=== PATIENT | male | born 1940 | race Caucasian/White ===

== ENCOUNTER 2016-03-20 20:41 | Inpatient (IN) | payer MEDICARE ==
[2016-03-20] MEDS ORDERED: RX INFO: IV CONTRAST WAS GIVEN 1 EACH MISC MISCELLANE PRN (20:45)
[2016-03-20] MEDS ORDERED: SODIUM CHLORIDE 0.9% 1,000 ML IV STA ×2 (20:56)
[2016-03-20 20:59] LABS: Glucose,Whole Blood 104 mg/dL (75-99)
--- NOTE | 2016-03-20 21:16 | CT ---
EXAMINATION TYPE: CT brain wo con DATE OF EXAM: 03/20/2016 9:01 PM COMPARISON: 11/05/2015 HISTORY: Left sided weakness. History of Prior CVA CT DLP: 1613.6 mGycm Automated exposure control for dose reduction was used. FINDINGS: There is cerebral cortical atrophy. There is no mass effect nor midline shift. There is no sign of in tracranial hemorrhage. There is hypodensity in the medial right parietal lobe convexity consistent wi th old cortical infarct. There is patchy hypodensity in the periventricular white matter. The calvari um is intact. There are unusual tiny air bubbles associated with the sella turcica and parasellar region as well as the soft tissues of the mastication muscles posterior to the maxillary sinuses. The origin and signi ficance of this air is not clear. This is present to very minimal degree on the old CT scan of 016. IMPRESSION: Cerebral atrophy and chronic small vessel ischemia. Old right parietal cortical infarct. This appears stable compared to old exam. Unusual soft tissue air and probable CSF air as described above. Clinical significance of this is not clear. Is there suspicion of a CSF leak?
[2016-03-20 21:17] LABS: Basophils % (A) 1 %; CH 28.9; CHCM 32.8; Eosinophils # (A) 0.2 k/uL (0-0.7); Eosinophils % (A) 4 %; HCT 44.6 % (39.0-53.0); HGB 14.1 gm/dL (13.0-17.5); Luc # (Auto) 0.21; Luc % (Auto) 3; Lymphocytes % (A) 15 %; MCH 28.2 pg (25.0-35.0); MCHC 31.7 g/dL (31.0-37.0); MCV 89.2 fL (80.0-100.0); Mean Platelet Volume 9.3; Monocytes # (A) 0.6 k/uL (0-1.0); Monocytes % (A) 9 %; Neutrophils # (A) 4.3 k/uL (1.3-7.7); Neutrophils % (A) 68 %; RDW 15.3 % (11.5-15.5); WBC 6.3 k/uL (3.8-10.6); WBC (Perox) 6.46
[2016-03-20 21:24] LABS: INR 1.3 (<1.1); Partial Thromboplastin Time 25.4 sec (22.0-30.0); Prothrombin Time 12.5 sec (9.0-12.0)
[2016-03-20 21:28] LABS: ALT 31 U/L (21-72); AST 27 U/L (17-59); Alkaline Phosphatase 67 U/L (38-126); Anion Gap 13 mmol/L; Blood Urea Nitrogen 16 mg/dL (9-20); Carbon Dioxide 24 mmol/L (22-30); Chloride 102 mmol/L (98-107); Glucose 120 mg/dL (74-99); Magnesium 2.1 mg/dL (1.6-2.3); Non-African American GFR(MDRD) >60 (>60 ml/min/1.73 sqM); Phosphorous 3.7 mg/dL (2.5-4.5); Potassium 4.4 mmol/L (3.5-5.1); Sodium 139 mmol/L (137-145); Total Bilirubin 1.1 mg/dL (0.2-1.3); Total Protein 6.8 g/dL (6.3-8.2)
--- NOTE | 2016-03-20 21:30 | CT ---
EXAMINATION TYPE: CT angio head neck DATE OF EXAM: 03/20/2016 9:15 PM COMPARISON: 11/05/2015 HISTORY: Left sided weakness. CT DLP: 1613.6 mGycm Automated exposure control for dose reduction was used. CONTRAST: Performed with IV Contrast, patient injected with 65 mL of Omnipaque 350. There are 3-D post processed images. FINDINGS: There is normal branching pattern of the great vessels on the aortic arch. There is bilateral patency of the common internal and external carotid arteries. There is bilateral patency of the vertebral ar teries. Left vertebral artery is larger than the right. There is lateral atherosclerotic plaque at th e carotid artery bifurcations. There is lumen narrowing of 25 % at the right carotid artery bifurcati on. There is approximate 25% lumen narrowing at the left carotid artery bifurcation. There is arterial flow in the anterior middle and posterior cerebral arteries bilaterally. There is m ild ectasia of the cranial internal carotid arteries. I see no aneurysm. There is patency of the vert ebrobasilar artery system. Basilar artery fills mostly from the left side. There is no evidence of an eurysm or neovascularity. There is no mass effect. IMPRESSION: ATHEROSCLEROTIC VASCULAR DISEASE. NO EVIDENCE OF HEMODYNAMICALLY SIGNIFICANT STENOSIS IN THE CAROTID ARTERIES. THERE IS APPROXIMATE 25% STENOSIS OF THE PROXIMAL INTERNAL CAROTID ARTERIES BILATERALLY. TN LD ECTASIA OF THE INTRACRANIAL INTERNAL CAROTID ARTERIES. NO SIGN OF INTRACRANIAL ANEURYSM. NO ADVERS E CHANGE COMPARED TO OLD EXAM.
[2016-03-20 21:36] LABS: Creatine Kinase 74 U/L (55-170)
--- NOTE | 2016-03-20 21:42 | ED ---
General Adult HPI - General Chief complaint: Neuro Symptoms/Deficit Stated complaint: CVA Time Seen by Provider: 03/20/16 20:45 Source: patient, EMS, RN notes reviewed, old records reviewed Mode of arrival: EMS Limitations: no limitations - History of Present Illness Initial comments: This is a 76-year-old male ER for evaluation. This patient presents here today for reevaluation follow CVA, patient was watching TV with screamed out and then began to be unable to move the left arm, turning head. Patient's family really called EMS. Patient does have history of seizure, has history of A. fib , and [place]. Upon arrival to emergency room, patient still complaining of mild weakness. Although no extremity focal deficit that is new is found. Patient states he has left lower extremity weakness secondary to prior CVA. No nausea vomiting, no headache no fevers no other significant complaints - Related Data Home Medications Medication Instructions Recorded Confirmed Simvastatin [Zocor] 40 mg PO HS 10/23/14 03/20/16 Metoprolol Succinate [Toprol XL] 100 mg PO HS 03/06/15 03/20/16 Cholecalciferol [Vitamin D3] 1,000 unit PO DAILY 11/05/15 03/20/16 Multivitamins, Thera [Multivitamin] 1 tab PO DAILY 11/05/15 03/20/16 amLODIPine BESYLATE/BENAZEPRIL 1 cap PO DAILY 11/05/15 03/20/16 [amLODIPine BESYLATE/BENAZEPRIL 5-20 mg] Aspirin EC [Ecotrin Low Dose] 81 mg PO DAILY 03/20/16 03/20/16 Previous Rx's Medication Instructions Recorded Apixaban [Eliquis] 5 mg PO BID tab 11/09/14 Allergies Allergy/AdvReac Type Severity Reaction Status Date / Time No Known Allergies Allergy Verified 03/20/16 20:57 Review of Systems ROS Statement: Those systems with pertinent positive or pertinent negative responses have been documented in the HPI. ROS Other: All systems not noted in ROS Statement are negative. Past Medical History Past Medical History: Atrial Fibrillation, Heart Failure, CVA/TIA, Hyperlipidemia, Hypertension Additional Past Medical History / Comment(s): prostate cancer 2008, radiation treatment, last stroke was October 2014, [place]. Patient states has a difficult time with octavia inhibitors-makes him cough History of Any Multi-Drug Resistant Organisms: None Reported Additional Past Surgical History / Comment(s): colonoscopy x3, everything was negative, last one December 2014 Past Anesthesia/Blood Transfusion Reactions: No Reported Reaction Past Psychological History: No Psychological Hx Reported Smoking Status: Former smoker Past Alcohol Use History: Occasional Past Drug Use History: None Reported - Past Family History Mother Family Medical History: No Reported History Additional Family Medical History / Comment(s): multiple sclerosis Son(s) Family Medical History: Hypertension Father Additional Family Medical History / Comment(s): ETOH abuse General Exam - General Exam Comments Initial Comments: NIH 2, left lower extremity weakness old Limitations: no limitations General appearance: alert, in no apparent distress Head exam: Present: atraumatic, normocephalic, normal inspection Eye exam: Present: normal appearance, PERRL, EOMI. Absent: scleral icterus, conjunctival injection, periorbital swelling ENT exam: Present: normal exam, mucous membranes moist Neck exam: Present: normal inspection. Absent: tenderness, meningismus, lymphadenopathy Respiratory exam: Present: normal lung sounds bilaterally. Absent: respiratory distress, wheezes, rales, rhonchi, stridor Cardiovascular Exam: Present: regular rate, normal rhythm, normal heart sounds. Absent: systolic murmur, diastolic murmur, rubs, gallop, clicks GI/Abdominal exam: Present: soft, normal bowel sounds. Absent: distended, tenderness, guarding, rebound, rigid Extremities exam: Present: normal inspection, full ROM, normal capillary refill. Absent: tenderness, pedal edema, joint swelling, calf tenderness Back exam: Present: normal inspection Neurological exam: Present: alert, oriented X3, CN II-XII intact Psychiatric exam: Present: normal affect, normal mood Skin exam: Present: warm, dry, intact, normal color. Absent: rash Course Vital Signs 03/20/16 03/20/16 03/20/16 20:57 21:15 21:30 Temperature 97 F L Pulse Rate 101 H 70 68 Respiratory 16 16 14 Rate Blood Pressure 160/94 151/86 175/104 O2 Sat by Pulse 94 L 100 100 Oximetry 03/20/16 03/20/16 21:45 22:00 Temperature Pulse Rate 80 74 Respiratory 16 14 Rate Blood Pressure 158/83 156/83 O2 Sat by Pulse 90 L 96 Oximetry - Reevaluation(s) Reevaluation #1: 01/05/17 22:43 Patient's symptoms at this time I resolved, has no TPA candidate, patient also is on Eliquis EKG Findings - EKG Comments: EKG Findings:: EKG shows A. fib rate of 84, QRS 144, QTc 527 Medical Decision Making - Medical Decision Making 76 year for evaluation of CVA, patient came in [facility] for evaluation of probable CVA , shaking at home with weakness in his right arm and extremity. Patient also has weakness in the left extremity which is chronic. Patient be admitted for continued neurological evaluation. At this time his symptoms are improving to baseline, CT brain and A head and neck are negative for acute disease - Lab Data Result diagrams: 03/20/16 21:03/20/16 21:01 Lab Results 03/20/16 03/20/16 03/20/16 Range/Units 20:58 21:01 21:01 WBC 6.3 (3.8-10.6) k/uL RBC 5.00 (4.30-5.90) m/uL Hgb 14.1 (13.0-17.5) gm/dL Hct 44.6 (39.0-53.0) % MCV 89.2 (80.0-100.0) fL MCH 28.2 (25.0-35.0) pg MCHC 31.7 (31.0-37.0) g/dL RDW 15.3 (11.5-15.5) % Plt Count 151 (150-450) k/uL Neutrophils % 68 % Lymphocytes % 15 % Monocytes % 9 % Eosinophils % 4 % Basophils % 1 % Neutrophils # 4.3 (1.3-7.7) k/uL Lymphocytes # 1.0 (1.0-4.8) k/uL Monocytes # 0.6 (0-1.0) k/uL Eosinophils # 0.2 (0-0.7) k/uL Basophils # 0.0 (0-0.2) k/uL PT (9.0-12.0) sec INR (<1.1) APTT (22.0-30.0) sec Sodium (137-145) mmol/L Potassium (3.5-5.1) mmol/L Chloride (98-107) mmol/L Carbon Dioxide (22-30) mmol/L Anion Gap mmol/L BUN (9-20) mg/dL Creatinine (0.66-1.25) mg/dL Est GFR (MDRD) Af Amer (>60 ml/min/1.73 sqM) Est GFR (MDRD) Non-Af (>60 ml/min/1.73 sqM) Glucose (74-99) mg/dL POC Glucose (mg/dL) 104 H (75-99) mg/dL POC Glu Hr Associate ID Meka Sandy Calcium (8.4-10.2) mg/dL Phosphorus (2.5-4.5) mg/dL Magnesium (1.6-2.3) mg/dL Total Bilirubin (0.2-1.3) mg/dL AST (17-59) U/L ALT (21-72) U/L Alkaline Phosphatase (38-126) U/L Total Creatine Kinase 74 (55-170) U/L CK-MB (CK-2) 1.2 (0.0-2.4) ng/mL CK-MB (CK-2) Rel Index 1.6 Troponin I <0.012 (0.000-0.034) ng/mL Total Protein (6.3-8.2) g/dL Albumin (3.5-5.0) g/dL 03/20/16 03/20/16 Range/Units 21:01 21:01 WBC (3.8-10.6) k/uL RBC (4.30-5.90) m/uL Hgb (13.0-17.5) gm/dL Hct (39.0-53.0) % MCV (80.0-100.0) fL MCH (25.0-35.0) pg MCHC (31.0-37.0) g/dL RDW (11.5-15.5) % Plt Count (150-450) k/uL Neutrophils % % Lymphocytes % % Monocytes % % Eosinophils % % Basophils % % Neutrophils # (1.3-7.7) k/uL Lymphocytes # (1.0-4.8) k/uL Monocytes # (0-1.0) k/uL Eosinophils # (0-0.7) k/uL Basophils # (0-0.2) k/uL PT 12.5 H (9.0-12.0) sec INR 1.3 (<1.1) APTT 25.4 (22.0-30.0) sec Sodium 139 (137-145) mmol/L Potassium 4.4 (3.5-5.1) mmol/L Chloride 102 (98-107) mmol/L Carbon Dioxide 24 (22-30) mmol/L Anion Gap 13 mmol/L BUN 16 (9-20) mg/dL Creatinine 1.12 (0.66-1.25) mg/dL Est GFR (MDRD) Af Amer >60 (>60 ml/min/1.73 sqM) Est GFR (MDRD) Non-Af >60 (>60 ml/min/1.73 sqM) Glucose 120 H (74-99) mg/dL POC Glucose (mg/dL) (75-99) mg/dL POC Glu Hr Associate ID Calcium 9.0 (8.4-10.2) mg/dL Phosphorus 3.7 (2.5-4.5) mg/dL Magnesium 2.1 (1.6-2.3) mg/dL Total Bilirubin 1.1 (0.2-1.3) mg/dL AST 27 (17-59) U/L ALT 31 (21-72) U/L Alkaline Phosphatase 67 (38-126) U/L Total Creatine Kinase (55-170) U/L CK-MB (CK-2) (0.0-2.4) ng/mL CK-MB (CK-2) Rel Index Troponin I (0.000-0.034) ng/mL Total Protein 6.8 (6.3-8.2) g/dL Albumin 4.0 (3.5-5.0) g/dL - Radiology Data Radiology results: report reviewed (CT brain, CTA head and neck negative for acute disease or changes), image reviewed Critical Care Time Critical Care Time: Yes Total Critical Care Time: 31 Disposition Clinical Impression: CVA (cerebral vascular accident), Chronic a-fib Disposition: ADMITTED IP TO THIS [facility] Condition: Fair Referrals: Evan Mary DO [Primary Care Provider] - 1-2 days
[2016-03-20 21:49] LABS: Creatine Kinase MB 1.2 ng/mL (0.0-2.4); Troponin I <0.012 ng/mL (0.000-0.034)
[2016-03-20] MEDS ORDERED: ASPIRIN 325 MG TAB PO STA (22:33)
[2016-03-21 00:22] VITALS: BMI 32.7
[2016-03-21] MEDS: ASPIRIN 325 MG TAB PO SCH (01:18)
[2016-03-21 02:29] LABS: Glucose,Whole Blood 118 mg/dL (75-99)
[2016-03-21] MEDS ORDERED: RX INFO: IV CONTRAST WAS GIVEN 1 EACH MISC MISCELLANE PRN (02:30)
[2016-03-21 03:18] LABS: CH 28.5; CHCM 31.9; HCT 43.4 % (39.0-53.0); HDW 2.86; HGB 13.6 gm/dL (13.0-17.5); Hypochromasia Slight; MCH 28.4 pg (25.0-35.0); MCHC 31.5 g/dL (31.0-37.0); MCV 90.2 fL (80.0-100.0); Mean Platelet Volume 8.4; RBC 4.81 m/uL (4.30-5.90); RDW 15.2 % (11.5-15.5); WBC 5.9 k/uL (3.8-10.6)
[2016-03-21 03:25] LABS: INR 1.2 (<1.1); Partial Thromboplastin Time 26.5 sec (22.0-30.0); Prothrombin Time 12.3 sec (9.0-12.0)
[2016-03-21 03:26] LABS: Anion Gap 14 mmol/L; Blood Urea Nitrogen 15 mg/dL (9-20); Carbon Dioxide 22 mmol/L (22-30); Chloride 105 mmol/L (98-107); Creatine Kinase 83 U/L (55-170); Glucose 131 mg/dL (74-99); Non-African American GFR(MDRD) >60 (>60 ml/min/1.73 sqM); Sodium 141 mmol/L (137-145)
--- NOTE | 2016-03-21 03:45 | CT ---
EXAMINATION TYPE: CT brain wo con DATE OF EXAM: 03/21/2016 3:28 AM COMPARISON: 03/20/2016 HISTORY: follow up, pt still having symptoms seizure like activity, CVA CT DLP: 1085.40 mGycm Automated exposure control for dose reduction was used. FINDINGS: Prominent cortical sulci and ventricles are noted with age-related atrophic changes of brain. Old infarction changes in the right frontal, temporal parietal lobe of brain with encephalomalacia ch anges. No significant midline shift or mass effect is noted. Posterior fossa showed moderate atrophic changes of brain. Brainstem appears grossly intact with mult iple artifacts with possible old infarction changes. No definite acute infarction or hemorrhage is noted in the brain. Previously noted tiny air collections in the and parasellar region and dizziness of mastication muscl es are not well visualized at this time probably related to interval healing changes. Mild mucosal thickening is noted in the ethmoid sinuses with chronic sinusitis changes. IMPRESSION: 1. No acute intracranial hemorrhage, mass effect, or midline shift is seen. 2. There is interval healing of sellar and parasellar tiny air collections as described above. Otherw ise and there is no significant interval change in the brain. 3. Old infarction changes in the right frontal parietal temporal areas of the brain. 4. Sinusitis changes.
--- NOTE | 2016-03-21 09:53 | P.CRDCN ---
History of Present Illness Consult date: 03/21/16 Requesting physician: Brodie Vargas Reason for Consult (text): Possible CVA Chief complaint: Seizure activity History of present illness: This is a 76-year-old gentleman with history of hypertension, chronic persistent atrial fibrillation, hyperlipidemia, prior CVA, who was brought to the hospital via EMS because of questionable seizure-like activity. According to the documentation, the stated that the patient was watching TV, he suddenly yelled out, and then was having what appeared to be a seizure for approximately 1 minute. Upon wakening patient did have some disorientation, with some associated facial droop and slurring of speech. For this reason the patient was brought to the emergency room for further evaluation. On EMS arrival, left hand arm and leg weakness with evidence of left facial droop, patient does have residual left-sided weakness from her prior CVA. Blood pressure on arrival 148/100, heart rate in the 80s, 96% on room air with blood sugar of 132. EKG on arrival to the emergency room showed atrial fibrillation with right bundle branch block pattern. Repeat EKG performed this morning showed atrial fibrillation with right bundle branch block pattern and occasional PVC. CT angiography performed on admission revealed atherosclerotic vascular disease with no evidence of hemodynamically significant stenosis in the carotid arteries. CAT scan of the brain revealed cerebral atrophy and chronic small vessel ischemia. Old right parietal cortical infarct stable as compared to prior exam. Unusual soft tissue and probable CSF air. Repeat CAT scan performed this morning did not reveal any acute intracranial hemorrhage, mass effect, or midline shift. There is interval healing of the sellar and parasellar tiny air collections. Old infarction changes in the right frontoparietal temporal areas of the brain. Blood pressure on arrival 160/90, heart rate 100, 94% on 2 L oxygen. Laboratory data was reviewed, WBC 5.9, potassium 4.4, BUN 15, creatinine 1.0. Troponin is 0.0122. The patient is on anticoagulation in the form of Eliquis 5 mg one tablet by mouth twice a day. Past Medical History Past Medical History: Atrial Fibrillation, Heart Failure, CVA/TIA, Hyperlipidemia, Hypertension Additional Past Medical History / Comment(s): prostate cancer 2008, radiation treatment, last stroke was October 2014, [place]. Patient states has a difficult time with octavia inhibitors-makes him cough History of Any Multi-Drug Resistant Organisms: None Reported Additional Past Surgical History / Comment(s): colonoscopy x3, everything was negative, last one December 2014 Past Anesthesia/Blood Transfusion Reactions: No Reported Reaction Past Psychological History: No Psychological Hx Reported Smoking Status: Former smoker Past Alcohol Use History: Occasional Past Drug Use History: None Reported - Past Family History Sister(s) Family Medical History: Diabetes Mellitus, Myocardial Infarction ([place]) Additional Family Medical History / Comment(s): sister from an [place] Mother Family Medical History: No Reported History Additional Family Medical History / Comment(s): multiple sclerosis Son(s) Family Medical History: Hypertension Father Additional Family Medical History / Comment(s): ETOH abuse Medications and Allergies Home Medications Medication Instructions Recorded Confirmed Type Simvastatin [Zocor] 40 mg PO HS 10/23/14 03/21/16 History Metoprolol Succinate [Toprol XL] 100 mg PO HS 03/06/15 03/21/16 History Cholecalciferol [Vitamin D3] 1,000 unit PO DAILY 11/05/15 03/21/16 History Multivitamins, Thera [Multivitamin] 1 tab PO DAILY 11/05/15 03/21/16 History amLODIPine BESYLATE/BENAZEPRIL 1 cap PO DAILY 11/05/15 03/21/16 History [amLODIPine BESYLATE/BENAZEPRIL 5-20 mg] Aspirin EC [Ecotrin Low Dose] 81 mg PO DAILY 03/20/16 03/21/16 History Allergies Allergy/AdvReac Type Severity Reaction Status Date / Time No Known Allergies Allergy Verified 03/20/16 20:57 Physical Exam Vitals: Vital Signs Temp Pulse Pulse Resp BP BP Pulse Ox 03/21/16 09:00 97.0 F L 97 16 144/87 97 03/21/16 08:00 98.1 F 82 18 132/82 94 L 03/21/16 04:45 81 18 141/78 95 03/21/16 04:15 80 18 127/70 94 L 03/21/16 04:00 74 18 139/91 95 03/21/16 03:45 78 16 141/90 96 03/21/16 03:30 74 16 125/86 94 L 03/21/16 03:15 73 18 137/77 93 L 03/21/16 03:01 82 18 153/75 94 L 03/21/16 02:46 85 16 138/89 94 L 03/21/16 02:31 72 18 167/85 94 L 03/21/16 00:00 97.2 F L 89 16 140/92 92 L 03/20/16 23:25 78 14 155/92 96 Intake and Output 03/20/16 03/21/16 03/21/16 22:59 06:59 14:59 Intake Total 500 Output Total 885 Balance -385 Intake: IV 500 Sodium Chloride 0.9% 1, 500 000 ml @ 100 mls/hr IV . Q10H STA Rx#:[id number] Output: Urine 885 Other: Voiding Method Toilet Toilet Urinal Urinal # Voids 1 Weight 100.5 kg 100.5 kg PHYSICAL EXAMINATION: HEENT: Head is atraumatic, normocephalic. Pupils equal, round. Neck is supple. There is no elevated jugular venous pressure. HEART EXAMINATION: S1 and S2 irregular irregular systolic murmur is heard. CHEST EXAMINATION: Lungs are clear to auscultation and precussion. No chest wall tenderness is noted on palpation or with deep breathing. ABDOMEN: Soft, nontender. Bowel sounds are heard. No organomegaly noted. EXTREMITIES: 2+ peripheral pulses with no evidence of peripheral edema and no calf tenderness noted. NEUROLOGIC patient is awake, alert and oriented -2. Mild slurring his speech, mild left-sided facial droop. . Results 03/21/16 03:04 03/21/16 03:04 Cardiac Enzymes 03/21/16 Range/Units 03:04 Troponin I <0.012 (0.000-0.034) ng/mL Coagulation 03/21/16 Range/Units 03:04 PT 12.3 H (9.0-12.0) sec APTT 26.5 (22.0-30.0) sec CBC 03/21/16 Range/Units 03:04 WBC 5.9 (3.8-10.6) k/uL RBC 4.81 (4.30-5.90) m/uL Hgb 13.6 (13.0-17.5) gm/dL Hct 43.4 (39.0-53.0) % Plt Count 140 L (150-450) k/uL Comprehensive Metabolic Panel 03/21/16 Range/Units 03:04 Sodium 141 (137-145) mmol/L Potassium 4.0 (3.5-5.1) mmol/L Chloride 105 (98-107) mmol/L Carbon Dioxide 22 (22-30) mmol/L BUN 15 (9-20) mg/dL Creatinine 1.00 (0.66-1.25) mg/dL Glucose 131 H (74-99) mg/dL Current Medications Generic Name Dose Route Start Last Admin Trade Name Freq PRN Reason Stop Dose Admin Amlodipine Besylate 5 mg 03/21/16 09:00 Norvasc PO DAILY [facility] Apixaban 5 mg 03/21/16 09:00 Eliquis PO BID [facility] Aspirin 325 mg 03/21/16 22:36 03/21/16 01:18 Aspirin PO Not Given DAILY [facility] Aspirin 81 mg 03/21/16 09:00 Aspirin PO DAILY [facility] Atorvastatin Calcium 20 mg 03/21/16 21:00 Lipitor PO HS [facility] Cholecalciferol 1,000 unit 03/21/16 09:00 Vitamin D3 PO DAILY [facility] Lisinopril 20 mg 03/21/16 09:00 Zestril PO DAILY [facility] Metoprolol Succinate 100 mg 03/21/16 21:00 Toprol Xl PO HS [facility] Miscellaneous Information 1 each 03/20/16 20:45 Rx Info: Iv Contrast Was Given MISCELLANE 03/22/16 20:45 DAILY PRN Per Protocol Miscellaneous Information 1 each 03/21/16 02:30 Rx Info: Iv Contrast Was Given MISCELLANE 03/23/16 02:31 DAILY PRN Per Protocol Multivitamins 1 each 03/21/16 12:00 Theragran PO DAILY@1200 [facility] Intake and Output 03/20/16 03/21/16 03/21/16 22:59 06:59 14:59 Intake Total 500 Output Total 885 Balance -385 Intake: IV 500 Sodium Chloride 0.9% 1, 500 000 ml @ 100 mls/hr IV . Q10H STA Rx#:[id number] Output: Urine 885 Other: Voiding Method Toilet Toilet Urinal Urinal # Voids 1 Weight 100.5 kg 100.5 kg 03/21/16 03:04 03/21/16 03:04 EKG Interpretations (text) EKG shows atrial fibrillation with a right bundle branch block pattern and occasional PVC. Assessment and Plan Plan: Assessment and plan #1 possible seizures #2 history of CVA #3 hypertension #4 chronic persistent atrial fibrillation on Eliquis #5 hyperlipidemia Plan Echocardiogram with Doppler study was performed in October 2015 which revealed an ejection fraction of 50-55%, mild to moderate aortic regurgitation. We will repeat an echocardiogram with Doppler study. Patient does continue to be in atrial fibrillation, rate is under adequate control. Recommend to continue current dose of Eliquis 5 mg one tablet by mouth twice a day. Further recommendations to follow. DNP note has been reviewed, I agree with a documented findings and plan of care. Patient was seen and examined.
[2016-03-21] MEDS: APIXABAN 5 MG TAB PO SCH ×2 (10:05→21:15)
[2016-03-21] MEDS: amLODIPine 5 MG TAB PO SCH (10:05)
[2016-03-21] MEDS: ASPIRIN 81 MG CHEW PO SCH (10:05)
[2016-03-21] MEDS: LISINOPRIL 20 MG TAB PO SCH (10:05)
[2016-03-21] MEDS: CHOLECALCIFEROL 1,000 UNIT TAB PO SCH (10:05)
[2016-03-21] MEDS: MULTIVITAMINS, THERA 1 EACH TAB PO SCH (10:05)
--- NOTE | 2016-03-21 12:54 | ECHOF ---
Referral Reason:afib MEASUREMENTS -------- HEIGHT: 175.3 cm WEIGHT: 100.2 kg BP: 144/87 RVIDd: 3.5 cm (< 3.3) IVSd: 1.5 cm (0.6 - 1.1) LVIDd: 3.4 cm (3.9 - 5.3) LVPWd: 1.6 cm (0.6 - 1.1) IVSs: 1.9 cm LVIDs: 2.5 cm LVPWs: 2.2 cm LA Diam: 5.2 cm (2.7 - 3.8) LAESV Index (A-L): 87.04 ml/m Ao Diam: 3.1 cm (2.0 - 3.7) AV Cusp: 1.2 cm (1.5 - 2.6) MV EXCURSION: 15.618 mm (> 18.000) MV EF SLOPE: 97 mm/s (70 - 150) EPSS: 0.5 cm AV maxP.37 mmHg AV meanP.41 mmHg RAP: 15.00 mmHg RVSP: 39.53 mmHg FINDINGS -------- Atrial fibrillation. This was a technically adequate study. There is moderate concentric left ventricular hypertrophy. Overall left ventricular systolic function is low-normal with, an EF between 50 - 55 %. The right ventricle is mildly enlarged. LA is severely dilated >40 ml/m2 RA appears enlarged. Aortic valve is trileaflet and is mildly thickened. Peak/mean gradient across the Aortic Valve is 16.37mmHg / 8.41mmHg. The mitral valve leaflets are mildly thickened. Mild mitral annular calcification present. [id number] mitral regurgitation is present. Moderate tricuspid regurgitation present. There is mild pulmonary hypertension. The right ventricular systolic pressure, as measured by Doppler, is 39.53mmHg . Pulmonic valve appears structurally normal. The aortic root size is normal. The inferior vena cava is dilated with no significant inspiratory collapse which is consistent estimated right atrial pressure of >15 mmHg. There is no pericardial effusion. CONCLUSIONS -------- 1. Atrial fibrillation. 2. The mitral valve leaflets are mildly thickened. 3. Mild mitral annular calcification present. 4. [id number] mitral regurgitation is present. 5. Moderate tricuspid regurgitation present. 6. There is mild pulmonary hypertension. 7. The right ventricular systolic pressure, as measured by Doppler, is 39.53mmHg . 8. Pulmonic valve appears structurally normal. 9. The aortic root size is normal. 10. The inferior vena cava is dilated with no significant inspiratory collapse which is consistent estimated right atrial pressure of >15 mmHg. 11. There is no pericardial effusion. 12. This was a technically adequate study. 13. There is moderate concentric left ventricular hypertrophy. 14. Overall left ventricular systolic function is low-normal with, an EF between 50 - 55 %. 15. The right ventricle is mildly enlarged. 16. LA is severely dilated >40 ml/m2 17. RA appears enlarged. 18. Aortic valve is trileaflet and is mildly thickened. 19. Peak/mean gradient across the Aortic Valve is 16.37mmHg / 8.41mmHg. EMBEDDED HARDWARE ENGINEER: Taz Newton RDCS
[2016-03-21] MEDS: levETIRAcetam 500 MG TAB PO SCH (13:08)
--- NOTE | 2016-03-21 19:01 | P.HPIM ---
History of Present Illness H&P Date: 03/21/16 Chief Complaint: Seizure activity Patient is a 76 show male, patient of Dr. Evan Mary in the outpatient setting with medical history significant for hypertension, chronic atrial fibrillation, hyperlipidemia, prior CVA in 2014, prostate cancer with radiation treatment, and history of nicotine dependence. Patient presented via EMS to the emergency department with complaints of sudden onset of bilateral upper extremity tremors and inability to speak while tremors were going on per and patient. On EMS arrival, left arm and left weakness was noted with evidence of left facial droop, note that patient has residual left-sided weakness from prior CVA. EKG with evidence of atrial fibrillation with right bundle branch block. CT angiography performed on admission revealed atherosclerotic vascular disease with no evidence of hemodynamically significant stenosis in the carotid arteries. CAT scan of the brain revealed cerebral atrophy and chronic small vessel ischemia. Old right parietal cortical infarct stable as compared to prior exam. Unusual soft tissue and probable CSF air. Repeat CAT scan with no evidence of acute intracranial hemorrhage, mass effect, or midline shift. There is interval healing of the sellar and parasellar tiny air collections. Old infarction changes in the right frontoparietal temporal areas of the brain. Upon examination, patient reports he is feeling better. No further tremors to upper extremities. Patient denies headache, dysphagia, visual disturbances, difficulty hearing, tinnitus, shortness of breath, nausea, vomiting, chest pain, abdominal pain, numbness or tingling. Patient reports weakness to left upper and lower extremity, chronic in nature. Patient reports swelling to bilateral lower extremities 1 month. Patient has been evaluated by cardiology. Neurology consultation pending. Past Medical History Past Medical History: Atrial Fibrillation, Heart Failure, CVA/TIA, Hyperlipidemia, Hypertension Additional Past Medical History / Comment(s): prostate cancer 2008, radiation treatment, last stroke was October 2014, uti. Patient states has a difficult time with octavia inhibitors-makes him cough History of Any Multi-Drug Resistant Organisms: None Reported Additional Past Surgical History / Comment(s): colonoscopy x3, everything was negative, last one December 2014 Past Anesthesia/Blood Transfusion Reactions: No Reported Reaction Past Psychological History: No Psychological Hx Reported Smoking Status: Former smoker Past Alcohol Use History: Occasional Past Drug Use History: None Reported - Past Family History Sister(s) Family Medical History: Diabetes Mellitus, Myocardial Infarction ([place]) Additional Family Medical History / Comment(s): sister from an [place] Mother Family Medical History: No Reported History Additional Family Medical History / Comment(s): multiple sclerosis Son(s) Family Medical History: Hypertension Father Additional Family Medical History / Comment(s): ETOH abuse Medications and Allergies Home Medications Medication Instructions Recorded Confirmed Type Simvastatin [Zocor] 40 mg PO HS 10/23/14 03/21/16 History Metoprolol Succinate [Toprol XL] 100 mg PO HS 03/06/15 03/21/16 History Cholecalciferol [Vitamin D3] 1,000 unit PO DAILY 11/05/15 03/21/16 History Multivitamins, Thera [Multivitamin] 1 tab PO DAILY 11/05/15 03/21/16 History amLODIPine BESYLATE/BENAZEPRIL 1 cap PO DAILY 11/05/15 03/21/16 History [amLODIPine BESYLATE/BENAZEPRIL 5-20 mg] Aspirin EC [Ecotrin Low Dose] 81 mg PO DAILY 03/20/16 03/21/16 History Allergies Allergy/AdvReac Type Severity Reaction Status Date / Time No Known Allergies Allergy Verified 03/20/16 20:57 Physical Exam Vitals: Vital Signs Temp Pulse Pulse Resp BP BP Pulse Ox 03/21/16 16:10 76 18 135/82 98 03/21/16 13:00 80 18 143/93 93 L 03/21/16 11:00 97.0 F L 78 18 143/93 94 L 03/21/16 09:00 97.0 F L 97 16 144/87 97 03/21/16 08:00 98.1 F 82 18 132/82 94 L 03/21/16 04:45 81 18 141/78 95 03/21/16 04:15 80 18 127/70 94 L 03/21/16 04:00 74 18 139/91 95 03/21/16 03:45 78 16 141/90 96 03/21/16 03:30 74 16 125/86 94 L 03/21/16 03:15 73 18 137/77 93 L 03/21/16 03:01 82 18 153/75 94 L 03/21/16 02:46 85 16 138/89 94 L 03/21/16 02:31 72 18 167/85 94 L 03/21/16 00:00 97.2 F L 89 16 140/92 92 L 03/20/16 23:25 78 14 155/92 96 Intake and Output 03/21/16 03/21/16 03/21/16 06:59 14:59 22:59 Intake Total 500 222 Output Total 885 200 Balance -385 -200 222 Intake: IV 500 Sodium Chloride 0.9% 1, 500 000 ml @ 100 mls/hr IV . Q10H STA Rx#:[id number] Oral 222 Output: Urine 885 200 Other: Voiding Method Toilet Toilet Toilet Urinal Urinal Urinal # Voids 1 Weight 100.5 kg GENERAL: Pt awake and alert, well-appearing, well-nourished, and in no acute distress. HEAD: Atraumatic, normocephalic. EYES: Pupils equal, round, and reactive to light, extraocular movements intact, sclera anicteric, conjunctiva are normal. ENT: Oropharynx clear without exudates. Moist mucous membranes. Tongue smooth, pink, no lesions, protrudes in midline. NECK:Supple without lymphadenopathy or JVD. LUNGS: Breath sounds clear to auscultation bilaterally. No wheezes, rales, or rhonchi. HEART: Heart S1, S2, no S3 or S4. Irregularly irregular. Systolic murmur. ABDOMEN: Soft, nontender, nondistended, normoactive bowel sounds. EXTREMITIES: 2+ peripheral pulses. 1+ edema to bilateral lower extremities. No calf tenderness. NEUROLOGICAL: Pt oriented x 3. Weakness noted to left upper and left lower extremity. No slurring of speech. PSYCH: Normal mood, normal affect. SKIN: Warm, dry, intact. Results CBC & Chem 7: 03/21/16 03:04 03/21/16 03:04 Labs: Abnormal Lab Results - Last 24 Hours (Table) 03/21/16 03/21/16 03/21/16 Range/Units 02:28 03:04 03:04 Plt Count 140 L (150-450) k/uL PT 12.3 H (9.0-12.0) sec Glucose (74-99) mg/dL POC Glucose (mg/dL) 118 H (75-99) mg/dL 03/21/16 Range/Units 03:04 Plt Count (150-450) k/uL PT (9.0-12.0) sec Glucose 131 H (74-99) mg/dL POC Glucose (mg/dL) (75-99) mg/dL Thrombosis Risk Factor Assmnt - DVT/VTE Prophylaxis DVT/VTE Prophylaxis: Pharmacologic Prophylaxis ordered, Mechanical Prophylaxis ordered - Choose All That Apply Any of the Below Risk Factors Present?: Yes Each Factor Represents 1 point: Obesity (BMI >25), Swollen legs (current) Other Risk Factors: Yes Each Risk Factor Represents 3 Points: Age 75 years or older Other congenital or acquired thrombophilia - If yes, enter type in comment: Yes Each Risk Factor Represents 5 Points: Stroke (< 1 month) Thrombosis Risk Factor Assessment Total Risk Factor Score: 10 Thrombosis Risk Factor Assessment Level: High Risk Assessment and Plan Plan: Impression and plan: 1. Transient tremors and difficulty speaking just prior to arrival to the emergency department suspect secondary to TIA, CVA, or seizure activity. Neurology consult requested, recommendations pending. Workup imaging with no evidence of acute CVA. EEG pending. 2. History of CVA with left-sided weakness. 3. Hypertension. 4. Chronic persistent atrial fibrillation on Eliquis. Cardiology consult in place, recommendations pending. 5. Hyperlipidemia. 6. History of prostate cancer with radiation treatment. 7. History of nicotine dependence. Continue to monitor patient. Continue current medications. Continue GI and DVT prophylaxis. Continue full neurological workup. Maintain aspiration and seizure precautions. Maintain fall precautions. Continue to follow with consultants. Repeat CBC and BMP in a.m. The above impression and plan have been discussed and directed by Dr. Mary. Farooq WASHINGTON acting as scribe for Dr. Mary.
--- NOTE | 2016-03-21 19:04 | P.CNNES ---
History of Present Illness Consult date: 03/21/16 Reason for Consult: Patient with possible new onset seizure and history of stroke. History of Present Illness: This patient is a 76-year-old right-handed white male who was brought into the emergency room yesterday with symptoms of acute onset of possible seizure. Patient was sitting at home and was watching television when he apparently let out a big scream and went into what appeared to be a seizure event lasting 1-2 minutes in duration. His came running into the room and found him with some seizure-like activity mostly involving his left side. EMS was called to the home and he was transported to the emergency room at [facility] for further evaluation. Patient does have history of previous stroke with some residual neurological deficits. He was doing fairly well until this recent event. Patient was seen in the emergency room by Dr. Painter who ordered a computed tomography scan of the brain as well as a CTA angiogram. CAT scan of the brain failed to reveal any evidence of new stroke. CTA angiogram came back negative for any carotid artery stenosis and no evidence of aneurysm. The patient was subsequently admitted to the hospital for further neurological evaluation. At 3 AM this morning the patient had another event in which he appeared to be seizure-like. According to the nursing staff he had some twitching of the left arm. The left side then became plegic and he was unable to use the left arm and leg. There was concern for possibility of new stroke and he was sent for a stat computed tomography scan of the brain. CAT scan of the brain was reviewed this morning and is negative for evidence of new stroke or hemorrhage. This was unchanged from his previous study. Patient does have a history of underlying atrial fibrillation and has been on Eloquis. He was seen by cardiology this morning and echocardiogram has been ordered. There is no evidence of any bleeding related to his long-term anticoagulation. His clinical history at this time is suggesting new onset seizure likely involving the right hemisphere. This is the area of his previous stroke. We are recommending he undergo a routine EEG and will be started on anticonvulsant therapy today. We will start the patient on Keppra 500 mg twice a day. We will review his EEG which was done today and give further recommendations. The patient does seem to be showing some improvement in his mental status. He no longer shows any evidence of left-sided weakness on examination. We will continue close neurological follow-up for the patient during this admission. Review of Systems Constitutional: Denies chills, Denies fever Eyes: denies blurred vision, denies pain Ears, nose, mouth and throat: Denies headache, Denies sore throat Cardiovascular: Denies chest pain, Denies shortness of breath Respiratory: Denies cough Gastrointestinal: Denies abdominal pain, Denies diarrhea, Denies nausea, Denies vomiting Musculoskeletal: Denies myalgias Integumentary: Denies pruritus, Denies rash Neurological: Denies numbness, Denies weakness Psychiatric: Denies anxiety, Denies depression Endocrine: Denies fatigue, Denies weight change Past Medical History Past Medical History: Atrial Fibrillation, Heart Failure, CVA/TIA, Hyperlipidemia, Hypertension Additional Past Medical History / Comment(s): prostate cancer 2008, radiation treatment, last stroke was October 2014, uti. Patient states has a difficult time with octavia inhibitors-makes him cough History of Any Multi-Drug Resistant Organisms: None Reported Additional Past Surgical History / Comment(s): colonoscopy x3, everything was negative, last one December 2014 Past Anesthesia/Blood Transfusion Reactions: No Reported Reaction Past Psychological History: No Psychological Hx Reported Smoking Status: Former smoker Past Alcohol Use History: Occasional Past Drug Use History: None Reported - Past Family History Sister(s) Family Medical History: Diabetes Mellitus, Myocardial Infarction ([place]) Additional Family Medical History / Comment(s): sister from an [place] Mother Family Medical History: No Reported History Additional Family Medical History / Comment(s): multiple sclerosis Son(s) Family Medical History: Hypertension Father Additional Family Medical History / Comment(s): ETOH abuse Medications and Allergies Home Medications Medication Instructions Recorded Confirmed Type Simvastatin [Zocor] 40 mg PO HS 10/23/14 03/21/16 History Metoprolol Succinate [Toprol XL] 100 mg PO HS 03/06/15 03/21/16 History Cholecalciferol [Vitamin D3] 1,000 unit PO DAILY 11/05/15 03/21/16 History Multivitamins, Thera [Multivitamin] 1 tab PO DAILY 11/05/15 03/21/16 History amLODIPine BESYLATE/BENAZEPRIL 1 cap PO DAILY 11/05/15 03/21/16 History [amLODIPine BESYLATE/BENAZEPRIL 5-20 mg] Aspirin EC [Ecotrin Low Dose] 81 mg PO DAILY 03/20/16 03/21/16 History Allergies Allergy/AdvReac Type Severity Reaction Status Date / Time No Known Allergies Allergy Verified 03/20/16 20:57 Physical Examination - Vital Signs Vital Signs: Vital Signs Temp Pulse Pulse Resp BP BP Pulse Ox 03/21/16 09:00 97.0 F L 97 16 144/87 97 03/21/16 08:00 98.1 F 82 18 132/82 94 L 03/21/16 04:45 81 18 141/78 95 03/21/16 04:15 80 18 127/70 94 L 03/21/16 04:00 74 18 139/91 95 03/21/16 03:45 78 16 141/90 96 03/21/16 03:30 74 16 125/86 94 L 03/21/16 03:15 73 18 137/77 93 L 03/21/16 03:01 82 18 153/75 94 L 03/21/16 02:46 85 16 138/89 94 L 03/21/16 02:31 72 18 167/85 94 L 03/21/16 00:00 97.2 F L 89 16 140/92 92 L 03/20/16 23:25 78 14 155/92 96 Intake and Output 03/20/16 03/21/16 03/21/16 22:59 06:59 14:59 Intake Total 500 Output Total 885 Balance -385 Intake: IV 500 Sodium Chloride 0.9% 1, 500 000 ml @ 100 mls/hr IV . Q10H STA Rx#:[id number] Output: Urine 885 Other: Voiding Method Toilet Toilet Urinal Urinal # Voids 1 Weight 100.5 kg 100.5 kg - Constitutional General appearance: average body habitus, cooperative - EENT EENT: PERRL, mucous membranes moist - Respiratory Respiratory: lungs clear, normal breath sounds - Cardiovascular Cardiovascular: regular rate, normal S1, normal S2 Extremities: no peripheral edema bilaterally - Gastrointestinal Gastrointestinal: normoactive bowel sounds - Integumentary Integumentary: normal - Neurologic Cranial nerve examination: PERRL, EOMI, VFF, V1/V2/V3 grossly intact, tongue midline, intact gag reflex, intact corneal reflex, normal palatal elevation Speech examination: intact Sensorimotor examination: intact Detailed motor examination: grossly full strength in all extremities Detailed sensory examination: intact Reflex and gait examination: intact Reflexes: 1+: ankle, bicep, knee, tricep - Musculoskeletal Musculoskeletal: no pain - Psychiatric Psychiatric: mood/affect appropriate, cooperative Results - Laboratory Findings CBC and BMP: 03/21/16 03:04 03/21/16 03:04 Abnormal Lab Findings: Abnormal Labs 03/21/16 03/21/16 03/21/16 02:28 03:04 03:04 Plt Count 140 L PT 12.3 H Glucose POC Glucose (mg/dL) 118 H 03/21/16 03:04 Plt Count PT Glucose 131 H POC Glucose (mg/dL) Assessment and Plan (1) New onset seizure Status: Acute Code(s): R56.9 - UNSPECIFIED CONVULSIONS (2) Complex partial epilepsy Status: Acute Code(s): G40.209 - LOCAL-REL SYMPTC EPI W CMPLX PRT SEIZ,NOT NTRCT,W/O STAT EPI (3) CVA (cerebral vascular accident) Status: Acute Code(s): I63.9 - CEREBRAL INFARCTION, UNSPECIFIED (4) Atrial fibrillation Status: Acute Code(s): I48.91 - UNSPECIFIED ATRIAL FIBRILLATION Plan: This patient is a 76-year-old male who was admitted hospital after having an initial episode at home of possible new onset seizure. He was at home watching television suddenly let out a large cry and was noted by his is having shaking of his entire body. He did not have any loss of bowel or bladder control. EMS was called and he was brought in to the emergency room for further evaluation. He was evaluated initially for possibility of stroke. His NIH stroke scale was 8.0. He underwent a CTA as well as a CT of the brain both of which came back stable with no findings of acute stroke. He has been on Eloquis for long-term anticoagulation for atrial fibrillation. This was a contraindication for any TPA treatment for the patient. He was totally admitted to the hospital. This morning at 3 AM he had another event in which she had convulsive activity noted by the nursing staff. He was unable to move his left side which is hemiplegic. He was sent for a repeat computed tomography scan of the brain at 3 AM this morning which came back negative for any acute changes. Patient was started on Keppra for seizure prophylaxis. We will check a Keppra level tomorrow morning. He underwent a routine EEG which was reviewed and reveals only mild slowing with no epileptic seizure focus noted. We have discussed all of the findings today with the patient at length. He is doing much better this evening and his speech is clear. He has no evidence of left-sided weakness. We will continue close neurological follow-up for the patient during this admission. His overall prognosis remains guarded. Time with Patient: Greater than 30
[2016-03-21] MEDS: ATORVASTATIN 20 MG TAB PO SCH (21:15)
[2016-03-21] MEDS: METOPROLOL SUCCINATE (ER) 100 MG TAB.ER.24H PO SCH (21:15)
[2016-03-22] MEDS: levETIRAcetam 500 MG TAB PO SCH ×3 (00:05→20:59)
[2016-03-22 06:45] LABS: Basophils % (A) 0 %; CHCM 32.4; Eosinophils # (A) 0.1 k/uL (0-0.7); Eosinophils % (A) 2 %; HCT 43.5 % (39.0-53.0); HDW 3.04; HGB 13.8 gm/dL (13.0-17.5); Hypochromasia Slight; Luc # (Auto) 0.19; Luc % (Auto) 4; Lymphocytes # (A) 0.8 k/uL (1.0-4.8); Lymphocytes % (A) 15 %; MCH 28.8 pg (25.0-35.0); MCHC 31.7 g/dL (31.0-37.0); MCV 90.6 fL (80.0-100.0); Mean Platelet Volume 9.3; Monocytes # (A) 0.4 k/uL (0-1.0); Monocytes % (A) 8 %; Neutrophils # (A) 3.9 k/uL (1.3-7.7); Neutrophils % (A) 71 %; RDW 15.4 % (11.5-15.5); WBC 5.5 k/uL (3.8-10.6); WBC (Perox) 5.84
[2016-03-22 06:57] LABS: Anion Gap 9 mmol/L; Blood Urea Nitrogen 9 mg/dL (9-20); Calcium 8.9 mg/dL (8.4-10.2); Carbon Dioxide 27 mmol/L (22-30); Chloride 107 mmol/L (98-107); Glucose 91 mg/dL (74-99); Non-African American GFR(MDRD) >60 (>60 ml/min/1.73 sqM); Potassium 3.7 mmol/L (3.5-5.1); Sodium 143 mmol/L (137-145)
[2016-03-22] MEDS: MULTIVITAMINS, THERA 1 EACH TAB PO SCH (08:08)
[2016-03-22] MEDS: APIXABAN 5 MG TAB PO SCH ×2 (08:08→20:59)
[2016-03-22] MEDS: amLODIPine 5 MG TAB PO SCH (08:09)
[2016-03-22] MEDS: ASPIRIN 325 MG TAB PO SCH (08:09)
[2016-03-22] MEDS: LISINOPRIL 20 MG TAB PO SCH (08:09)
[2016-03-22] MEDS: ASPIRIN 81 MG CHEW PO SCH (08:09)
[2016-03-22] MEDS: CHOLECALCIFEROL 1,000 UNIT TAB PO SCH (08:10)
--- NOTE | 2016-03-22 08:40 | EEG ---
DATE OF SERVICE: 03/21/[address] Mary. CONSULTING INTERPRETING PHYSICIAN: Dr. Shen Torres INDICATIONS FOR EXAMINATION: This patient is a 76-year-old male evaluated for new onset seizure. AGE: 76Y EEG FINDINGS: A routine 21-channel, awake digital EEG recording was accomplished utilizing the 10 to 20 international system with bipolar and referential montages. The background activity in the most alert resting state consists of a low to medium amplitude, fairly well-developed and well sustained 6 Hz activity over the posterior head regions. This posterior rhythm attenuates to eye opening. There is a small amount of low amplitude 18 to 20 Hz beta activity seen maximally over the anterior head regions. Muscle and movement artifact was observed on a few occasions during the tracing. Hyperventilation was not performed. Photic stimulation at flash frequencies of 2 to 30 Hz produced a minimal occipital driving response. No epileptiform discharges were seen. IMPRESSION: This EEG is moderately abnormal in diffuse fashion due to slowing of the EEG background. The EEG failed to reveal any focal, lateralized or epileptiform abnormalities. Clinical correlation is recommended.
--- NOTE | 2016-03-22 16:40 | P.PN ---
Subjective This patient is a 76-year-old right-handed white male was omitted hospital with new onset seizure. Patient has a history of old stroke which she suffered last year. He was at home and had an episode of tonic-clonic seizure-like activity. It appeared to be focal involving the left side. He was brought into the emergency room where he was further evaluated. He underwent a computed tomography scan of the brain as well as a CTA angiogram. These studies were negative and he was admitted to the hospital. Patient had a episode yesterday at 3 AM in the morning with recurrent seizure-like activity. He was hemiplegic on his left side. This completely resolved following the event. Patient was started on Keppra for long-term anticonvulsant therapy. Keppra level was drawn this morning but is pending from the laboratory. Patient has been doing better today. He has no left-sided weakness. He likely has new onset of seizure activity secondary to previous old stroke. The patient's was at bedside today. She was updated on his overall neurological status. He has had no further seizure episodes since starting on Keppra. We are waiting the Keppra blood level to return from the laboratory and we'll adjust his dose if necessary. Patient is to continue to work with physical therapy. We will anticipate possible discharge to home in the next 24-48 hours. We will continue close neurological follow-up with the patient during this admission. Objective - Vital Signs Vital signs: Vital Signs Temp 97.5 F L 03/22/16 11:04 Pulse 71 03/22/16 11:04 Resp 18 03/22/16 11:04 BP 122/82 03/22/16 11:04 Pulse Ox 93 L 03/22/16 11:04 Intake & Output 03/21/16 03/22/16 03/22/16 18:59 06:59 18:59 Intake Total 222 398 Output Total 200 250 300 Balance 22 -250 98 Weight 101.5 kg Intake: Oral 222 398 Output: Urine 200 250 300 Other: Voiding Method Toilet Toilet Urinal Urinal # Voids 1 - Exam Physical examination: PHYSICAL EXAMINATION: Patient is resting comfortably in bed. VITAL SIGNS: Blood pressure is [122/82]. Heart rate is [71]. Respiration is [18] . Temperature is [97.5]. HEENT: Head is atraumatic, neck is supple, there were no carotid bruits. CHEST: Lungs are clear to auscultation and percussion. CARDIAC: S1, S2 normal rate and rhythm. There is no murmur. ABDOMEN: Soft and nontender. Bowel sounds are present. EXTREMITIES: There is no pedal edema. Peripheral pulses are present. Neurological examination: Neurological examination is unchanged from yesterday. Patient is more awake and alert today and is following all commands. - Labs CBC & Chem 7: 03/22/16 06:15 03/22/16 06:15 Labs: Abnormal Lab Results - Last 24 Hours (Table) 03/22/16 Range/Units 06:15 Plt Count 141 L (150-450) k/uL Lymphocytes # 0.8 L (1.0-4.8) k/uL Assessment and Plan (1) New onset seizure Status: Acute Code(s): R56.9 - UNSPECIFIED CONVULSIONS (2) Complex partial epilepsy Status: Acute Code(s): G40.209 - LOCAL-REL SYMPTC EPI W CMPLX PRT SEIZ,NOT NTRCT,W/O STAT EPI (3) CVA (cerebral vascular accident) Status: Acute Code(s): I63.9 - CEREBRAL INFARCTION, UNSPECIFIED (4) Atrial fibrillation Status: Acute Code(s): I48.91 - UNSPECIFIED ATRIAL FIBRILLATION Plan: This patient is a 76-year-old male who was admitted hospital after having an initial episode at home of possible new onset seizure. He was at home watching television suddenly let out a large cry and was noted by his is having shaking of his entire body. He did not have any loss of bowel or bladder control. EMS was called and he was brought in to the emergency room for further evaluation. He was evaluated initially for possibility of stroke. His NIH stroke scale was 8.0. He underwent a CTA as well as a CT of the brain both of which came back stable with no findings of acute stroke. He has been on Eloquis for long-term anticoagulation for atrial fibrillation. This was a contraindication for any TPA treatment for the patient. He was totally admitted to the hospital. This morning at 3 AM he had another event in which she had convulsive activity noted by the nursing staff. He was unable to move his left side which is hemiplegic. He was sent for a repeat computed tomography scan of the brain at 3 AM this morning which came back negative for any acute changes. Patient was started on Keppra for seizure prophylaxis. We will check a Keppra level tomorrow morning. He underwent a routine EEG which was reviewed and reveals only mild slowing with no epileptic seizure focus noted. We have discussed all of the findings today with the patient at length. He is doing much better this evening and his speech is clear. He has no evidence of left-sided weakness. Patient's was at bedside today. We did update her on his overall neurological status. He is doing much better on Keppra. He has had no further seizure episodes. We're waiting his Keppra blood level to return from the laboratory and it will be adjusted if necessary. We will continue close neurological follow-up for the patient during this admission. His overall prognosis remains guarded.
[2016-03-22] MEDS: METOPROLOL SUCCINATE (ER) 100 MG TAB.ER.24H PO SCH (20:59)
[2016-03-22] MEDS: ATORVASTATIN 20 MG TAB PO SCH (20:59)
[2016-03-23] MEDS: MULTIVITAMINS, THERA 1 EACH TAB PO SCH (08:00)
[2016-03-23] MEDS: ASPIRIN 81 MG CHEW PO SCH (08:00)
[2016-03-23] MEDS: amLODIPine 5 MG TAB PO SCH (08:00)
[2016-03-23] MEDS: APIXABAN 5 MG TAB PO SCH ×2 (08:00→20:07)
[2016-03-23] MEDS: CHOLECALCIFEROL 1,000 UNIT TAB PO SCH (08:00)
[2016-03-23] MEDS: levETIRAcetam 500 MG TAB PO SCH ×2 (08:00→20:07)
[2016-03-23] MEDS: LISINOPRIL 20 MG TAB PO SCH (08:00)
[2016-03-23] MEDS: ASPIRIN 325 MG TAB PO SCH (08:01)
--- NOTE | 2016-03-23 15:50 | P.PN ---
Subjective This patient is a 76-year-old right-handed white male was omitted hospital with new onset seizure. Patient has a history of old stroke which she suffered last year. He was at home and had an episode of tonic-clonic seizure-like activity. It appeared to be focal involving the left side. He was brought into the emergency room where he was further evaluated. He underwent a computed tomography scan of the brain as well as a CTA angiogram. These studies were negative and he was admitted to the hospital. Patient had a episode yesterday at 3 AM in the morning with recurrent seizure-like activity. He was hemiplegic on his left side. This completely resolved following the event. Patient was started on Keppra for long-term anticonvulsant therapy. Keppra level was drawn this morning but is pending from the laboratory. Patient has been doing better today. He has no left-sided weakness. He likely has new onset of seizure activity secondary to previous old stroke. The patient's was at bedside today. She was updated on his overall neurological status. He has had no further seizure episodes since starting on Keppra. We are waiting the Keppra blood level to return from the laboratory and we'll adjust his dose if necessary. Patient is to continue to work with physical therapy. We will anticipate possible discharge to home in the next 24-48 hours. Patient continues to do quite well today. He has not had any further spells or seizure- like events. He denies any focal weakness on examination today. We are still awaiting the laboratory results on his Keppra blood level. If this comes back therapeutic tomorrow he may be ready for discharge home. We will continue close neurological follow-up with the patient during this admission. Objective - Vital Signs Vital signs: Vital Signs Temp 97.9 F 03/23/16 11:36 Pulse 70 03/23/16 11:36 Resp 18 03/23/16 11:36 BP 136/79 03/23/16 11:36 Pulse Ox 93 L 03/23/16 11:36 Intake & Output 03/22/16 03/23/16 03/23/16 18:59 06:59 18:59 Intake Total 578 478 Output Total 300 400 200 Balance 278 -400 278 Weight 97.2 kg Intake: Oral 578 478 Output: Urine 300 400 200 Other: Voiding Method Toilet Urinal # Voids 2 - Exam Physical examination: PHYSICAL EXAMINATION: Patient is resting comfortably in bed. VITAL SIGNS: Blood pressure is [136/79]. Heart rate is [70]. Respiration is [18] . Temperature is [97.9]. HEENT: Head is atraumatic, neck is supple, there were no carotid bruits. CHEST: Lungs are clear to auscultation and percussion. CARDIAC: S1, S2 normal rate and rhythm. There is no murmur. ABDOMEN: Soft and nontender. Bowel sounds are present. EXTREMITIES: There is no pedal edema. Peripheral pulses are present. Neurological examination: Neurological examination is unchanged from yesterday. Patient is more awake and alert today and is following all commands. - Labs CBC & Chem 7: 03/22/16 06:15 03/22/16 06:15 Assessment and Plan (1) New onset seizure Status: Acute Code(s): R56.9 - UNSPECIFIED CONVULSIONS (2) Complex partial epilepsy Status: Acute Code(s): G40.209 - LOCAL-REL SYMPTC EPI W CMPLX PRT SEIZ,NOT NTRCT,W/O STAT EPI (3) CVA (cerebral vascular accident) Status: Acute Code(s): I63.9 - CEREBRAL INFARCTION, UNSPECIFIED (4) Atrial fibrillation Status: Acute Code(s): I48.91 - UNSPECIFIED ATRIAL FIBRILLATION Plan: This patient is a 76-year-old male who was admitted hospital after having an initial episode at home of possible new onset seizure. He was at home watching television suddenly let out a large cry and was noted by his is having shaking of his entire body. He did not have any loss of bowel or bladder control. EMS was called and he was brought in to the emergency room for further evaluation. He was evaluated initially for possibility of stroke. His NIH stroke scale was 8.0. He underwent a CTA as well as a CT of the brain both of which came back stable with no findings of acute stroke. He has been on Eloquis for long-term anticoagulation for atrial fibrillation. This was a contraindication for any TPA treatment for the patient. He was totally admitted to the hospital. This morning at 3 AM he had another event in which she had convulsive activity noted by the nursing staff. He was unable to move his left side which is hemiplegic. He was sent for a repeat computed tomography scan of the brain at 3 AM this morning which came back negative for any acute changes. Patient was started on Keppra for seizure prophylaxis. We will check a Keppra level tomorrow morning. He underwent a routine EEG which was reviewed and reveals only mild slowing with no epileptic seizure focus noted. We have discussed all of the findings today with the patient at length. He is doing much better this evening and his speech is clear. He has no evidence of left-sided weakness. Patient's was at bedside today. We did update her on his overall neurological status. He is doing much better on Keppra. He has had no further seizure episodes. We're waiting his Keppra blood level to return from the laboratory and it will be adjusted if necessary. If his blood levels come back therapeutic tomorrow he may be discharged home. He may follow-up in the outpatient neurology clinic in 3-4 weeks. We will continue close neurological follow-up for the patient during this admission. His overall prognosis remains guarded.
[2016-03-23] MEDS: ATORVASTATIN 20 MG TAB PO SCH (20:07)
[2016-03-23] MEDS: METOPROLOL SUCCINATE (ER) 100 MG TAB.ER.24H PO SCH (20:07)
[2016-03-23 23:08] VITALS: RESP 16
[2016-03-24] MEDS: amLODIPine 5 MG TAB PO SCH (09:04)
[2016-03-24] MEDS: CHOLECALCIFEROL 1,000 UNIT TAB PO SCH (09:04)
[2016-03-24] MEDS: levETIRAcetam 500 MG TAB PO SCH (09:04)
[2016-03-24] MEDS: LISINOPRIL 20 MG TAB PO SCH (09:04)
[2016-03-24] MEDS: APIXABAN 5 MG TAB PO SCH (09:04)
[2016-03-24] MEDS: ASPIRIN 81 MG CHEW PO SCH (09:04)
[2016-03-24 09:46] VITALS: PULSE 89
[2016-03-24 12:10] VITALS: BP 140/95; TEMP 98.1
[2016-03-24] MEDS: MULTIVITAMINS, THERA 1 EACH TAB PO SCH (12:26)
--- NOTE | 2016-03-24 13:35 | P.DS ---
Providers Date of admission: 03/20/16 22:33 Expected date of discharge: 03/24/16 Attending physician: Evan Mary Consults: Cardiology and neurology Primary care physician: Evan Mary [facility] Course: Patient is a 76 show male, patient of Dr. Evan Mary in the outpatient setting with medical history significant for hypertension, chronic atrial fibrillation, hyperlipidemia, prior CVA in 2014, prostate cancer with radiation treatment, and history of nicotine dependence. Patient presented via EMS to the emergency department with complaints of sudden onset of tonic-clonic seizure-like activity appeared to be focal involving the left side. Computed tomography scan of brain as well as CTA of angiogram were negative. Patient did have one episode of recurrent seizure-like activity where he was hemiplegic on his left side which resolved after the episode. Patient was evaluated by neurology service and started on Keppra for long-term anticonvulsant therapy. Patient was also evaluated by cardiology service during his hospital stay with recommendations to continue anticoagulation in the form of Eliquis. Echocardiogram with Doppler with evidence of mild pulmonary hypertension, low to normal ventricular systolic function with an EF between 50-55%. Patient had no further seizure activity during his hospital stay and left-sided hemiparesis resolved. Patient was deemed stable for discharge to home. Keppra will be adjusted based on serum level which is currently pending. Patient to follow-up with neurology and primary service as directed. Discharge diagnoses: 1. New onset seizure suspect secondary to previous CVA. 2. Complex partial epilepsy. 3. History of CVA with left-sided weakness. 3. Hypertension. 4. Chronic atrial fibrillation. 5. Hyperlipidemia. 6. History of prostate cancer with radiation treatment. 7. History of nicotine dependence. 8. Mild pulmonary hypertension. The above impression and plan have been discussed and directed by Dr. Mary. Farooq WASHINGTON acting as scribe for Dr. Mary. Pertinent Studies: Angiographically CT; brain CT; EKG; echocardiogram with Doppler; EEG Patient Condition at Discharge: Good Plan - Discharge Summary New Discharge Prescriptions: levETIRAcetam [Keppra] 500 mg PO Q12HR #60 tab Discharge Medication List Simvastatin [Zocor] 40 mg PO HS 10/23/14 [History] Apixaban [Eliquis] 5 mg PO BID tab 11/09/14 [Rx] Metoprolol Succinate [Toprol XL] 100 mg PO HS 03/06/15 [History] Cholecalciferol [Vitamin D3] 1,000 unit PO DAILY 11/05/15 [History] Multivitamins, Thera [Multivitamin] 1 tab PO DAILY 11/05/15 [History] amLODIPine BESYLATE/BENAZEPRIL [amLODIPine BESYLATE/BENAZEPRIL 5-20 mg] 1 cap PO DAILY 11/05/15 [History] Aspirin EC [Ecotrin Low Dose] 81 mg PO DAILY 03/20/16 [History] levETIRAcetam [Keppra] 500 mg PO Q12HR #60 tab 03/24/16 [Rx] Follow up Appointment(s)/Referral(s): Mazin Nolasco MD [STAFF PHYSICIAN] - 1 Week ([phone]) Shen Torres MD [STAFF PHYSICIAN] - 04/24/16 9:30 am Evan Mary DO [Primary Care Provider] - 03/26/16 11:40 am Patient Instructions/Handouts: New-Onset Seizure in Adults (DC) Discharge Disposition: HOME SELF-CARE Pending Studies Pending Results: Vickie burkett
--- NOTE | 2016-03-24 16:00 | P.PN ---
Subjective This patient is a 76-year-old right-handed white male was omitted hospital with new onset seizure. Patient has a history of old stroke which she suffered last year. He was at home and had an episode of tonic-clonic seizure-like activity. It appeared to be focal involving the left side. He was brought into the emergency room where he was further evaluated. He underwent a computed tomography scan of the brain as well as a CTA angiogram. These studies were negative and he was admitted to the hospital. Patient had a episode yesterday at 3 AM in the morning with recurrent seizure-like activity. He was hemiplegic on his left side. This completely resolved following the event. Patient was started on Keppra for long-term anticonvulsant therapy. Keppra level was drawn this morning but is pending from the laboratory. Patient has been doing better today. He has no left-sided weakness. He likely has new onset of seizure activity secondary to previous old stroke. The patient's was at bedside today. She was updated on his overall neurological status. He has had no further seizure episodes since starting on Keppra. We are waiting the Keppra blood level to return from the laboratory and we'll adjust his dose if necessary. Patient is to continue to work with physical therapy. We will anticipate possible discharge to home in the next 24-48 hours. Patient continues to do quite well today. He has not had any further spells or seizure- like events. He denies any focal weakness on examination today. We are still awaiting the laboratory results on his Keppra blood level. If this comes back therapeutic tomorrow he may be ready for discharge home. Patient's Keppra level was reviewed today and is therapeutic at 13.7. He is to continue on his current dose of Keppra 500 mg twice a day. He will be discharged home today and may follow-up in the outpatient neurology clinic in 3 weeks. We will continue close neurological follow-up with the patient during this admission. Objective - Vital Signs Vital signs: Vital Signs Temp 98.1 F 03/24/16 12:00 Pulse 89 03/24/16 12:00 Resp 16 03/24/16 12:00 BP 140/95 03/24/16 12:00 Pulse Ox 94 L 03/24/16 12:00 Intake & Output 03/23/16 03/24/16 03/24/16 18:59 06:59 18:59 Intake Total 658 914 Output Total 200 1020 Balance 458 -1020 914 Weight 95.1 kg Intake: Oral 658 914 Output: Urine 200 1020 Other: Voiding Method Toilet Toilet Urinal Urinal Diaper Diaper # Voids 1 1 - Exam Physical examination: PHYSICAL EXAMINATION: Patient is resting comfortably in bed. VITAL SIGNS: Blood pressure is [140/95]. Heart rate is [73]. Respiration is [16] . Temperature is [98.1]. HEENT: Head is atraumatic, neck is supple, there were no carotid bruits. CHEST: Lungs are clear to auscultation and percussion. CARDIAC: S1, S2 normal rate and rhythm. There is no murmur. ABDOMEN: Soft and nontender. Bowel sounds are present. EXTREMITIES: There is no pedal edema. Peripheral pulses are present. Neurological examination: Neurological examination is unchanged from yesterday. Patient is more awake and alert today and is following all commands. - Labs CBC & Chem 7: 03/22/16 06:15 03/22/16 06:15 Assessment and Plan (1) New onset seizure Status: Acute Code(s): R56.9 - UNSPECIFIED CONVULSIONS (2) Complex partial epilepsy Status: Acute Code(s): G40.209 - LOCAL-REL SYMPTC EPI W CMPLX PRT SEIZ,NOT NTRCT,W/O STAT EPI (3) CVA (cerebral vascular accident) Status: Acute Code(s): I63.9 - CEREBRAL INFARCTION, UNSPECIFIED (4) Atrial fibrillation Status: Acute Code(s): I48.91 - UNSPECIFIED ATRIAL FIBRILLATION Plan: This patient is a 76-year-old male who was admitted hospital after having an initial episode at home of possible new onset seizure. He was at home watching television suddenly let out a large cry and was noted by his is having shaking of his entire body. He did not have any loss of bowel or bladder control. EMS was called and he was brought in to the emergency room for further evaluation. He was evaluated initially for possibility of stroke. His NIH stroke scale was 8.0. He underwent a CTA as well as a CT of the brain both of which came back stable with no findings of acute stroke. He has been on Eloquis for long-term anticoagulation for atrial fibrillation. This was a contraindication for any TPA treatment for the patient. He was totally admitted to the hospital. This morning at 3 AM he had another event in which she had convulsive activity noted by the nursing staff. He was unable to move his left side which is hemiplegic. He was sent for a repeat computed tomography scan of the brain at 3 AM this morning which came back negative for any acute changes. Patient was started on Keppra for seizure prophylaxis. We will check a Keppra level tomorrow morning. He underwent a routine EEG which was reviewed and reveals only mild slowing with no epileptic seizure focus noted. We have discussed all of the findings today with the patient at length. He is doing much better this evening and his speech is clear. He has no evidence of left-sided weakness. Patient's was at bedside today. We did update her on his overall neurological status. He is doing much better on Keppra. He has had no further seizure episodes. We're waiting his Keppra blood level to return from the laboratory and it will be adjusted if necessary. If his blood levels come back therapeutic tomorrow he may be discharged home. The patient's Keppra level came back therapeutic today at 13.7. He is to continue on his current dose of Keppra 500 mg twice a day. He is stable for discharge home today and may follow-up in the outpatient neurology clinic as instructed. He may follow-up in the outpatient neurology clinic in 3-4 weeks. We will continue close neurological follow-up for the patient during this admission. His overall prognosis remains guarded.
--- NOTE | 2016-03-24 17:25 | PN ---
DATE OF SERVICE: 03/22/2016 Mr. Martin is a pleasant 76-year-old white male who initially was admitted to the hospital with new onset of stroke versus seizure. The patient had known stroke a few years prior and he states he became very tremulous with left-sided weakness and arm flailing. He is currently doing well in the hospital today without any particular complaints. PHYSICAL EXAM: His head is normocephalic and atraumatic. NECK: Supple without JVD. LUNGS: Clear to auscultation. HEART: Irregular irregularity. ABDOMEN: Soft, nontender. No rebound, rigidity, guarding. EXTREMITIES: No cyanosis, clubbing or jaundice. NEUROLOGICAL: Patient is answering questions, is appropriate and oriented x3, he has left hemiparesis secondary to old stroke. His speech is adequate. Skin is warm and dry to palpation. PSYCHOLOGICAL: He is answering questions appropriately. IMPRESSION: 1. New onset of seizures. 2. Recent history cerebrovascular accident x2. 3. Atrial fibrillation. 4. Atherosclerotic cardiovascular disease. PLAN: Patient was placed on Keppra and pending on Keppra level. We will keep monitoring for seizure activity and TIA activity. He is also on anticoagulation in the form of aspirin and Eliquis. ( ) blood pressure control. We will continue to follow the patient's overall guarded prognosis.
--- NOTE | 2016-03-24 17:29 | PN ---
DATE OF SERVICE: 03/23/2016 This is a pleasant 76-year-old white male who was admitted for new onset seizure disorder. He was placed on Keppra by neurology. He underwent a CT of the brain and CT angiogram and showed old infarcts compatible with his previous infarct with left hemiparesis. He is doing quite well without any problems at this time. He is still currently awaiting a Keppra blood level to come back. PHYSICAL EXAM: He is alert and is answering questions appropriately. He is comfortable in bed. HEENT: Head is normocephalic and atraumatic. NECK: Supple. No JVD. HEART: Irregular irregularity. ABDOMEN: Soft, nontender. EXTREMITIES: No cyanosis, clubbing or jaundice. Left upper extremity with some weakness which is old from prior CVA. IMPRESSION: 1. Acute new-onset seizures. 2. Chronic cerebrovascular accident with left hemiparesis. 3. Chronic atrial fibrillation with controlled ventricular rate and current anticoagulation. PLAN: Continue Eliquis. We will continue Keppra for seizure activity. We will continue to monitor. Patient's not ready to go home today. He may be ready to go home in 24 to 36 hours. Continue to follow patient's progress and neurological function.
== END 2016-03-24 14:45 | disposition home or self-care (01) | DRG 57 ==
LOC: EC 20:41 → 6SEL 22:33
PROVIDERS: ADMIT Family Medicine; ATTEND Family Medicine
DX: I69.398 Other sequelae of cerebral infarction (principal); G40.209 Localization-related (focal) (partial) symptomatic epilepsy and epileptic syndromes with complex partial seizures, not intractable, without status epilepticus; I48.1 Persistent atrial fibrillation; I27.2 Other secondary pulmonary hypertension; I11.9 Hypertensive heart disease without heart failure; I69.354 Hemiplegia and hemiparesis following cerebral infarction affecting left non-dominant side; I48.2 Chronic atrial fibrillation; I50.9 Heart failure, unspecified; E78.5 Hyperlipidemia, unspecified; I25.10 Atherosclerotic heart disease of native coronary artery without angina pectoris; I45.10 Unspecified right bundle-branch block; Z79.01 Long term (current) use of anticoagulants; Z82.0 Family history of epilepsy and other diseases of the nervous system; Z82.49 Family history of ischemic heart disease and other diseases of the circulatory system; Z85.46 Personal history of malignant neoplasm of prostate; Z87.891 Personal history of nicotine dependence; Z79.899 Other long term (current) drug therapy
CPT/HCPCS: 36415; 70450; 70496; 70498; 80048; 80051; 80053; 80177; 82550; 82553; 82565; 82947; 83735; 84100; 84484; 84520; 85025; 85027; 85610; 85730; 93005; 93306; 95819; 99291

== ENCOUNTER → 2016-04-26 | Outpatient (CLI) | payer MEDICARE | END | disposition home or self-care (01) | LOC: LABWHC1 10:32 | PROVIDERS: ATTEND Psychiatry & Neurology Neurology | DX: G40.209 Localization-related (focal) (partial) symptomatic epilepsy and epileptic syndromes with complex partial seizures, not intractable, without status epilepticus (principal) | CPT/HCPCS: 36415; 80177 ==

== ENCOUNTER 2016-09-01 01:56 | Emergency (ER) | payer MEDICARE ==
[2016-09-01 02:04] VITALS: RESP 18
[2016-09-01 03:26] LABS: Basophils % (A) 1 %; CH 29.2; CHCM 32.6; Eosinophils # (A) 0.2 k/uL (0-0.7); Eosinophils % (A) 3 %; HCT 45.2 % (39.0-53.0); HDW 2.59; HGB 14.4 gm/dL (13.0-17.5); Luc # (Auto) 0.19; Luc % (Auto) 3; Lymphocytes # (A) 0.8 k/uL (1.0-4.8); Lymphocytes % (A) 13 %; MCH 28.8 pg (25.0-35.0); MCHC 31.9 g/dL (31.0-37.0); MCV 90.1 fL (80.0-100.0); Mean Platelet Volume 8.7; Monocytes # (A) 0.4 k/uL (0-1.0); Monocytes % (A) 6 %; Neutrophils # (A) 4.5 k/uL (1.3-7.7); Neutrophils % (A) 74 %; RBC 5.02 m/uL (4.30-5.90); RDW 14.5 % (11.5-15.5); WBC 6.1 k/uL (3.8-10.6); WBC (Perox) 6.18
[2016-09-01 03:32] LABS: ALT 29 U/L (21-72); AST 24 U/L (17-59); Alcohol <10 mg/dL; Alkaline Phosphatase 46 U/L (38-126); Anion Gap 6 mmol/L; Blood Urea Nitrogen 14 mg/dL (9-20); Carbon Dioxide 19 mmol/L (22-30); Chloride 118 mmol/L (98-107); Glucose 89 mg/dL (74-99); Non-African American GFR(MDRD) >60 (>60 ml/min/1.73 sqM); Sodium 143 mmol/L (137-145); Total Bilirubin 0.8 mg/dL (0.2-1.3); Total Protein 4.7 g/dL (6.3-8.2)
[2016-09-01 03:41] LABS: Calcium 6.4 mg/dL (8.4-10.2)
[2016-09-01 03:43] LABS: Appearance,Urine Clear (Clear); Bilirubin,Urine Negative (Negative); Glucose,Urine (UA) Negative (Negative); Ketones,Urine Negative (Negative); Leukocyte Esterase,Urine Negative (Negative); Mucus,Urine Rare /hpf; Nitrite,Urine Negative (Negative); Particle Count 1659; Protein,Urine 1+ (Negative); RBC,Urine 8 /hpf (0-5); Specific Gravity,Urine 1.016 (1.001-1.035); Sperm,Urine Rare /hpf; UA Billing (MACRO vs. MICRO) MICRO; WBC,Urine 4 /hpf (0-5)
[2016-09-01] MEDS ORDERED: CALCIUM GLUCONATE 1,000 MG in SODIUM CHLORIDE 0.9% 100 ML IVPB ONE (04:00)
[2016-09-01] MEDS ORDERED: POTASSIUM BICARB-CITRIC ACID 25 MEQ TABLET.EFF PO STA (04:00)
--- NOTE | 2016-09-01 04:02 | ED ---
Seizure HPI - General Chief Complaint: Seizure Stated Complaint: Possible seizure Time Seen by Provider: 09/01/16 02:00 Source: patient Mode of arrival: EMS - History of Present Illness Initial Comments: This patient is a 76-year-old man who has reported history of partial seizures. He reportedly takes Keppra and he denies missing any doses. The patient is reported to have had tonic-clonic movements which he states are consistent with his history of seizures. When I interview the patient, he is stating his back his baseline and he is not having any injury related to seizure. He is denying complaints. MD Complaint: seizure Onset/Timin -: hour(s) Description of Episode: tonic-clonic movement -: second(s) Witnessed: yes - by bystander Seizure History: known seizure disorder, compliant with medication Place: home Possible Precipitating Event: none Associated Symptoms: denies other symptoms - Related Data Home Medications Medication Instructions Recorded Confirmed Simvastatin [Zocor] 40 mg PO HS 10/23/14 09/01/16 Metoprolol Succinate [Toprol XL] 100 mg PO HS 03/06/15 09/01/16 Cholecalciferol [Vitamin D3] 1,000 unit PO DAILY 11/05/15 09/01/16 Multivitamins, Thera [Multivitamin 1 tab PO DAILY 11/05/15 09/01/16 (formulary)] amLODIPine BESYLATE/BENAZEPRIL 1 cap PO DAILY 11/05/15 09/01/16 [amLODIPine BESYLATE/BENAZEPRIL 5-20 mg] Aspirin EC [Ecotrin Low Dose] 81 mg PO DAILY 03/20/16 09/01/16 Previous Rx's Medication Instructions Recorded Apixaban [Eliquis] 5 mg PO BID tab 11/09/14 levETIRAcetam [Keppra] 500 mg PO Q12HR #60 tab 03/24/16 Allergies Allergy/AdvReac Type Severity Reaction Status Date / Time No Known Allergies Allergy Verified 09/01/16 02:08 Review of Systems ROS Statement: Those systems with pertinent positive or pertinent negative responses have been documented in the HPI. ROS Other: All systems not noted in ROS Statement are negative. Constitutional: Denies: fever Eyes: Denies: vision change Respiratory: Denies: cough, dyspnea Cardiovascular: Denies: chest pain, palpitations Gastrointestinal: Denies: abdominal pain, vomiting Genitourinary: Denies: dysuria Musculoskeletal: Denies: back pain Skin: Denies: rash Neurological: Denies: headache, weakness, numbness Past Medical History Past Medical History: Atrial Fibrillation, Heart Failure, CVA/TIA, Hyperlipidemia, Hypertension Additional Past Medical History / Comment(s): prostate cancer 2009, radiation treatment, last stroke was October 2014, uti. Patient states has a difficult time with octavia inhibitors-makes him cough History of Any Multi-Drug Resistant Organisms: None Reported Additional Past Surgical History / Comment(s): colonoscopy x3, everything was negative, last one December 2014 Past Anesthesia/Blood Transfusion Reactions: No Reported Reaction Past Psychological History: No Psychological Hx Reported Smoking Status: Former smoker Past Alcohol Use History: Occasional Past Drug Use History: None Reported - Past Family History Sister(s) Family Medical History: Diabetes Mellitus, Myocardial Infarction ([place]) Additional Family Medical History / Comment(s): sister from an [place] Mother Family Medical History: No Reported History Additional Family Medical History / Comment(s): multiple sclerosis Son(s) Family Medical History: Hypertension Father Additional Family Medical History / Comment(s): ETOH abuse General Exam General appearance: alert, in no apparent distress Head exam: Present: atraumatic, normocephalic, normal inspection Eye exam: Present: normal appearance. Absent: scleral icterus, conjunctival injection ENT exam: Present: normal oropharynx Neck exam: Present: normal inspection, full ROM Respiratory exam: Present: normal lung sounds bilaterally. Absent: respiratory distress, wheezes, rales, rhonchi, stridor Cardiovascular Exam: Present: regular rate, normal rhythm, normal heart sounds. Absent: systolic murmur, diastolic murmur, rubs, gallop GI/Abdominal exam: Present: soft. Absent: tenderness, guarding, rebound Extremities exam: Present: normal inspection, normal capillary refill. Absent: pedal edema, calf tenderness Back exam: Absent: CVA tenderness (R), CVA tenderness (L), vertebral tenderness Neurological exam: Present: alert, oriented X3, CN II-XII intact. Absent: motor sensory deficit Skin exam: Present: warm, dry, intact, normal color. Absent: rash Course Vital Signs 09/01/16 09/01/16 09/01/16 01:59 02:32 03:21 Temperature 96.6 F L Pulse Rate 78 73 71 Respiratory 18 18 18 Rate Blood Pressure 145/87 118/79 132/82 O2 Sat by Pulse 92 L 96 98 Oximetry 09/01/16 09/01/16 09/01/16 04:38 05:24 06:26 Temperature 97.8 F Pulse Rate 69 75 79 Respiratory 18 18 18 Rate Blood Pressure 135/76 129/89 150/84 O2 Sat by Pulse 98 98 98 Oximetry Medical Decision Making - Medical Decision Making Patient is a 76-year-old man with known history of seizures, taking Keppra. Workup reveals some electrolyte abnormalities and these were supplemented. On reevaluation, patient is feeling well and would like to go home. As she is at his baseline this seems acceptable, will have the patient follow-up with his neurologist to discuss his Keppra dosing. Discussed return parameters. - Lab Data Result diagrams: 09/01/16 03:05 09/01/16 03:05 Lab Results 09/01/16 09/01/16 09/01/16 Range/Units 03:05 03:05 03:05 WBC 6.1 (3.8-10.6) k/uL RBC 5.02 (4.30-5.90) m/uL Hgb 14.4 (13.0-17.5) gm/dL Hct 45.2 (39.0-53.0) % MCV 90.1 (80.0-100.0) fL MCH 28.8 (25.0-35.0) pg MCHC 31.9 (31.0-37.0) g/dL RDW 14.5 (11.5-15.5) % Plt Count 143 L (150-450) k/uL Neutrophils % 74 % Lymphocytes % 13 % Monocytes % 6 % Eosinophils % 3 % Basophils % 1 % Neutrophils # 4.5 (1.3-7.7) k/uL Lymphocytes # 0.8 L (1.0-4.8) k/uL Monocytes # 0.4 (0-1.0) k/uL Eosinophils # 0.2 (0-0.7) k/uL Basophils # 0.0 (0-0.2) k/uL Sodium 143 (137-145) mmol/L Potassium 3.0 L* (3.5-5.1) mmol/L Chloride 118 H (98-107) mmol/L Carbon Dioxide 19 L (22-30) mmol/L Anion Gap 6 mmol/L BUN 14 (9-20) mg/dL Creatinine 0.70 (0.66-1.25) mg/dL Est GFR (MDRD) Af Amer >60 (>60 ml/min/1.73 sqM) Est GFR (MDRD) Non-Af >60 (>60 ml/min/1.73 sqM) Glucose 89 (74-99) mg/dL Calcium 6.4 L* (8.4-10.2) mg/dL Total Bilirubin 0.8 (0.2-1.3) mg/dL AST 24 (17-59) U/L ALT 29 (21-72) U/L Alkaline Phosphatase 46 (38-126) U/L Total Protein 4.7 L (6.3-8.2) g/dL Albumin 2.4 L (3.5-5.0) g/dL Urine Color Yellow Urine Appearance Clear (Clear) Urine pH 6.0 (5.0-8.0) Ur Specific [place] 1.016 (1.001-1.035) Urine Protein 1+ H (Negative) Urine Glucose (UA) Negative (Negative) Urine Ketones Negative (Negative) Urine Blood Small H (Negative) Urine Nitrite Negative (Negative) Urine Bilirubin Negative (Negative) Urine Urobilinogen 2.0 (<2.0) mg/dL Ur Leukocyte Esterase Negative (Negative) Urine RBC 8 H (0-5) /hpf Urine WBC 4 (0-5) /hpf Urine Mucus Rare H (None) /hpf Urine Sperm Rare (None) /hpf Serum Alcohol <10 mg/dL Disposition Clinical Impression: Generalized seizure Disposition: HOME SELF-CARE Condition: Fair Instructions: Recurrent Seizures in Adults (ED) Referrals: Evan Mary DO [Primary Care Provider] - 1-2 days Shen Torres MD [STAFF PHYSICIAN] - 1-2 days
[2016-09-01 06:27] VITALS: BP 150/84; PULSE 79; TEMP 97.8
== END 2016-09-01 06:12 | disposition home or self-care (01) ==
LOC: EC 01:56
DX: G40.409 Other generalized epilepsy and epileptic syndromes, not intractable, without status epilepticus (principal); E78.5 Hyperlipidemia, unspecified; I10 Essential (primary) hypertension; Z85.46 Personal history of malignant neoplasm of prostate; Z87.891 Personal history of nicotine dependence; Z79.82 Long term (current) use of aspirin; Z79.899 Other long term (current) drug therapy
CPT/HCPCS: 99284; 96365; 36415; 93005; 80053; 80177; 85025; 81001; 80320; J0610

== ENCOUNTER → 2016-09-02 | Outpatient (CLI) | payer MEDICARE | END | disposition home or self-care (01) | LOC: LABWHC1 10:27 | PROVIDERS: ATTEND Psychiatry & Neurology Neurology | DX: G40.209 Localization-related (focal) (partial) symptomatic epilepsy and epileptic syndromes with complex partial seizures, not intractable, without status epilepticus (principal) | CPT/HCPCS: 36415; 80177 ==

== ENCOUNTER → 2017-09-10 | Outpatient (CLI) | payer MEDICARE | END | disposition home or self-care (01) | LOC: LABWHC1 10:07 | PROVIDERS: ATTEND Psychiatry & Neurology Neurology | DX: G40.209 Localization-related (focal) (partial) symptomatic epilepsy and epileptic syndromes with complex partial seizures, not intractable, without status epilepticus (principal) | CPT/HCPCS: 36415; 80177 ==

== ENCOUNTER → 2019-01-11 | Outpatient (CLI) | payer MEDICARE | END | disposition home or self-care (01) | LOC: LABWHC1 11:11 | PROVIDERS: ATTEND Psychiatry & Neurology Neurology | DX: G40.209 Localization-related (focal) (partial) symptomatic epilepsy and epileptic syndromes with complex partial seizures, not intractable, without status epilepticus (principal) | CPT/HCPCS: 36415; 80177 ==

== ENCOUNTER 2019-03-01 17:51 | Inpatient (IN) | payer MEDICARE ==
[2019-03-01 17:59] LABS: Glucose,Whole Blood 174 mg/dL (75-99)
[2019-03-01] MEDS ORDERED: NALOXONE 0.4 MG/ML 1 ML VIAL IV STA ×2 (17:59→18:32)
[2019-03-01] MEDS ORDERED: ETOMIDATE 2 MG/ML 10 ML VIAL IVP STA (18:09)
[2019-03-01] MEDS ORDERED: ROCURONIUM BROMIDE 10 MG/ML 5 ML VIAL IV STA (18:11)
[2019-03-01] MEDS ORDERED: SODIUM CHLORIDE 0.9% 1,000 ML IV ONE (18:18)
--- NOTE | 2019-03-01 18:23 | ED ---
General Adult HPI - General Chief complaint: Recheck/Abnormal Lab/Rx Stated complaint: edema Time Seen by Provider: 03/01/19 18:18 Source: family Mode of arrival: wheelchair Limitations: altered mental status - History of Present Illness Initial comments: Dictation was produced using [employer] dictation software. please excuse any grammatical, word or spelling errors. Chief Complaint: 79-year-old male brought in from home through triage for weakness apnea, and altered mental status. History of Present Illness: 79-year-old male is brought in by from home. Patient has been having increased fluid retention over the last 3 days. He is instructed by the physician to increase his water pills. Unable to provide history at this time. Andrew patient is unable course for irregular heartbeat. His past medical history of A. fib, heart failure, dyslipidemia and hypertension. Patient also according to chart review has history of seizures. The ROS documented in this emergency department record has been reviewed and confirmed by me. Those systems with pertinent positive or negative responses have been documented in the HPI. All other systems are other negative and/or noncontributory. PHYSICAL EXAM: General Impression: Obtunded, responsive voice and painful stimuli, shallow slow breathing, pale and cyanotic HEENT: Normocephalic atraumatic, extra-ocular movements intact, pinpoint pupils, dry mucous membranes Cardiovascular: Heart regular rate and rhythm Chest: Bilateral breath sounds Abdomen: Bowel sounds present, abdomen soft, non-tender, non-distended, no organomegaly Musculoskeletal: Weak and thready pulses Motor: Moves all extremities grossly Neurological: CN II-XII grossly intact, no focal motor or sensory deficits noted Skin: Intact with no visualized rashes ED course: 79-year-old male presents with altered mental status. Patient appears to be in critical distress. Patient is severely altered with depressed GCS. Patient rushed to a resuscitation bay. Patient was immediately bagged. Patient be breathing on his own however with very weak and shallow breaths. He is breathing very slowly. Pupils are pinpoint. Patient given Narcan without any improvement of his symptomatology. Blood sugar was measured to be 170. On her period to be normal sinus rhythm patient was normotensive. She was bagged and continued to be hypoxic with O2 saturations in the 70s. Patient was intubated using standard RSI technique. Successful intubation was performed with improvement of hypoxia. Labs evaluation obtained. CBC unremarkable. Coag panel shows an of 1.4. Venous blood gas was obtained showing pH of 7.16 and a pCO2 of 77 with a bicarb of 26. This likely reflects acute respiratory acidosis. Metabolic panel shows potassium 5.3. Bicarb of 23 with a gap of 19. Renal markers are acceptable. Glucose 193. Lactic acidosis of 9.2. Troponin 0.02. Urinalysis consistent with urinary tract infection. Urine drug screen is negative. Chest x-ray shows advanced interstitial and alveolar phase pulmonary edema. Presumably this is cardiogenic in etiology. Patient has history of CHF. He had an echocardiogram performed 2 years ago showing diastolic dysfunction. Computed tomography scan is unremarkable. Patient had ABG performed after the Ativan for several minutes. ABG shows pH is 7.35 with pCO2 of 53 bicarb of 29. Blood cultures pending. Patient started on broad-spectrum antibiotics. Patient also given Lasix for concerns of acute CHF exacerbation. Discussed patient case with Dr. Sims who is willing to accept patient care and intensive care unit. Pending discussion with Dr. Evan Mary. EKG interpretation: Ventricular rate 97, A. fib, QRS 104, QTC 467.. No [place] prolongation, no QTC prolongation, no ST or T-wave changes noted. EKG compared to 02/07/2017 showing no changes. Overall, this EKG is unremarkable - Related Data Home Medications Medication Instructions Recorded Confirmed Simvastatin [Zocor] 40 mg PO HS 10/23/14 02/07/17 Metoprolol Succinate [Toprol XL] 100 mg PO HS 03/06/15 02/07/17 Cholecalciferol [Vitamin D3 (25 1,000 unit PO DAILY 11/05/15 02/07/17 Mcg = 1000 Iu)] Multivitamins, Thera [Multivitamin 1 tab PO DAILY 11/05/15 02/07/17 (formulary)] amLODIPine BESYLATE/BENAZEPRIL 1 cap PO DAILY 11/05/15 02/07/17 [amLODIPine BESYLATE/BENAZEPRIL 5-20 MG] Aspirin EC [Ecotrin Low Dose] 81 mg PO DAILY 03/20/16 02/07/17 Spironolactone [Aldactone] 25 mg PO HS 03/01/19 03/01/19 Previous Rx's Medication Instructions Recorded Apixaban [Eliquis] 5 mg PO BID tab 11/09/14 levETIRAcetam [Keppra] 500 mg PO Q12HR #60 tab 03/24/16 Furosemide [Lasix] 40 mg PO DAILY #30 tablet 02/12/17 Allergies Allergy/AdvReac Type Severity Reaction Status Date / Time No Known Allergies Allergy Verified 03/01/19 19:56 Review of Systems ROS Statement: Those systems with pertinent positive or pertinent negative responses have been documented in the HPI. ROS Other: All systems not noted in ROS Statement are negative. Past Medical History Past Medical History: Atrial Fibrillation, Heart Failure, CVA/TIA, Hyperlip idemia, Hypertension Additional Past Medical History / Comment(s): prostate cancer 2008, radiation treatment, last stroke was October 2014, uti. Patient states has a difficult time with octavia inhibitors-makes him cough History of Any Multi-Drug Resistant Organisms: None Reported Additional Past Surgical History / Comment(s): colonoscopy x3, everything was negative, last one December 2014 Past Anesthesia/Blood Transfusion Reactions: No Reported Reaction Past Psychological History: No Psychological Hx Reported Smoking Status: Former smoker Past Alcohol Use History: Occasional Past Drug Use History: None Reported - Past Family History Sister(s) Family Medical History: Diabetes Mellitus, Myocardial Infarction ([place]) Additional Family Medical History / Comment(s): sister from an [place] Mother Family Medical History: No Reported History Additional Family Medical History / Comment(s): multiple sclerosis Son(s) Family Medical History: Hypertension Father Additional Family Medical History / Comment(s): ETOH abuse General Exam Limitations: altered mental status Course Vital Signs 03/01/19 03/01/19 03/01/19 17:53 17:57 17:58 Pulse Rate 91 96 Respiratory 10 L 10 L 10 L Rate Blood Pressure 95/71 101/87 O2 Sat by Pulse 77 L 69 L Oximetry 03/01/19 03/01/19 03/01/19 17:59 18:00 18:15 Pulse Rate 98 107 H Respiratory 10 L 10 L Rate Blood Pressure 113/75 90/62 O2 Sat by Pulse 78 L 93 L Oximetry 03/01/19 03/01/19 03/01/19 18:25 18:35 18:53 Pulse Rate 101 H 98 105 H Respiratory 18 18 18 Rate Blood Pressure 95/83 110/84 125/97 O2 Sat by Pulse 97 96 92 L Oximetry 03/01/19 03/01/19 03/01/19 19:00 19:10 19:15 Pulse Rate 86 103 H 101 H Respiratory 18 18 18 Rate Blood Pressure 128/96 131/108 131/98 O2 Sat by Pulse 95 96 95 Oximetry 03/01/19 03/01/19 03/01/19 19:20 19:30 19:35 Pulse Rate 94 99 101 H Respiratory 18 18 18 Rate Blood Pressure 109/90 129/94 133/72 O2 Sat by Pulse 96 96 95 Oximetry 03/01/19 03/01/19 03/01/19 19:40 19:45 19:50 Pulse Rate 95 105 H 97 Respiratory 18 18 18 Rate Blood Pressure 108/68 91/74 101/79 O2 Sat by Pulse 94 L 94 L 93 L Oximetry Medical Decision Making - Lab Data Result diagrams: 03/01/19 17:57 03/01/19 17:57 Lab Results 03/01/19 03/01/19 03/01/19 Range/Units 17:57 17:57 17:57 WBC 9.9 (3.8-10.6) k/uL RBC 5.08 (4.30-5.90) m/uL Hgb 14.7 (13.0-17.5) gm/dL Hct 49.9 (39.0-53.0) % MCV 98.3 (80.0-100.0) fL MCH 29.0 (25.0-35.0) pg MCHC 29.5 L (31.0-37.0) g/dL RDW 15.5 (11.5-15.5) % Plt Count 175 (150-450) k/uL Neutrophils % 60 % Lymphocytes % 24 % Monocytes % 7 % Eosinophils % 3 % Basophils % 1 % Neutrophils # 5.9 (1.3-7.7) k/uL Lymphocytes # 2.4 (1.0-4.8) k/uL Monocytes # 0.7 (0-1.0) k/uL Eosinophils # 0.3 (0-0.7) k/uL Basophils # 0.1 (0-0.2) k/uL Hypochromasia Marked Macrocytosis Slight PT (9.0-12.0) sec INR (<1.2) APTT (22.0-30.0) sec Sample Site ABG pH (7.35-7.45) ABG pCO2 (35-45) mmHg ABG pO2 (83-108) mmHg ABG HCO3 (21-25) mmol/L ABG Total CO2 (19-24) mmol/L ABG O2 Saturation (94-97) % ABG Base Excess mmol/L Dandre Test VBG pH 7.16 L* (7.31-7.41) VBG pCO2 77 H* (37-51) mmHg VBG HCO3 26 (24-28) mmol/L FiO2 % Sodium (137-145) mmol/L Potassium (3.5-5.1) mmol/L Chloride (98-107) mmol/L Carbon Dioxide (22-30) mmol/L Anion Gap mmol/L BUN (9-20) mg/dL Creatinine (0.66-1.25) mg/dL Est GFR (CKD-EPI)AfAm (>60 ml/min/1.73 sqM) Est GFR (CKD-EPI)NonAf (>60 ml/min/1.73 sqM) Glucose (74-99) mg/dL POC Glucose (mg/dL) (75-99) mg/dL POC Glu Membership Administrator ID Plasma Lactic Acid Yakov 9.2 H* (0.7-2.0) mmol/L Calcium (8.4-10.2) mg/dL Magnesium (1.6-2.3) mg/dL Total Bilirubin (0.2-1.3) mg/dL AST (17-59) U/L ALT (4-49) U/L Alkaline Phosphatase (38-126) U/L Ammonia 58 H (<30) umol/L Creatine Kinase (55-170) U/L Troponin I (0.000-0.034) ng/mL Total Protein (6.3-8.2) g/dL Albumin (3.5-5.0) g/dL Urine Color Urine Appearance (Clear) Urine pH (5.0-8.0) Ur Specific [place] (1.001-1.035) Urine Protein (Negative) Urine Glucose (UA) (Negative) Urine Ketones (Negative) Urine Blood (Negative) Urine Nitrite (Negative) Urine Bilirubin (Negative) Urine Urobilinogen (<2.0) mg/dL Ur Leukocyte Esterase (Negative) Urine RBC (0-5) /hpf Urine WBC (0-5) /hpf Urine WBC Clumps (None) /hpf Urine Bacteria (None) /hpf Hyaline Casts (0-2) /lpf Urine Mucus (None) /hpf Urine Opiates Screen (NotDetected) Ur Oxycodone Screen (NotDetected) Urine Methadone Screen (NotDetected) Ur Propoxyphene Screen (NotDetected) Ur Barbiturates Screen (NotDetected) U Tricyclic Antidepress (NotDetected) Ur Phencyclidine Scrn (NotDetected) Ur Amphetamines Screen (NotDetected) U Methamphetamines Scrn (NotDetected) U Benzodiazepines Scrn (NotDetected) Urine Cocaine Screen (NotDetected) U Marijuana (THC) Screen (NotDetected) 03/01/19 03/01/19 03/01/19 Range/Units 17:57 17:57 17:57 WBC (3.8-10.6) k/uL RBC (4.30-5.90) m/uL Hgb (13.0-17.5) gm/dL Hct (39.0-53.0) % MCV (80.0-100.0) fL MCH (25.0-35.0) pg MCHC (31.0-37.0) g/dL RDW (11.5-15.5) % Plt Count (150-450) k/uL Neutrophils % % Lymphocytes % % Monocytes % % Eosinophils % % Basophils % % Neutrophils # (1.3-7.7) k/uL Lymphocytes # (1.0-4.8) k/uL Monocytes # (0-1.0) k/uL Eosinophils # (0-0.7) k/uL Basophils # (0-0.2) k/uL Hypochromasia Macrocytosis PT 13.9 H (9.0-12.0) sec INR 1.4 H (<1.2) APTT 27.4 (22.0-30.0) sec Sample Site ABG pH (7.35-7.45) ABG pCO2 (35-45) mmHg ABG pO2 (83-108) mmHg ABG HCO3 (21-25) mmol/L ABG Total CO2 (19-24) mmol/L ABG O2 Saturation (94-97) % ABG Base Excess mmol/L Dandre Test VBG pH (7.31-7.41) VBG pCO2 (37-51) mmHg VBG HCO3 (24-28) mmol/L FiO2 % Sodium 137 (137-145) mmol/L Potassium 5.3 H (3.5-5.1) mmol/L Chloride 95 L (98-107) mmol/L Carbon Dioxide 23 (22-30) mmol/L Anion Gap 19 mmol/L BUN 40 H (9-20) mg/dL Creatinine 1.48 H (0.66-1.25) mg/dL Est GFR (CKD-EPI)AfAm 51 (>60 ml/min/1.73 sqM) Est GFR (CKD-EPI)NonAf 45 (>60 ml/min/1.73 sqM) Glucose 193 H (74-99) mg/dL POC Glucose (mg/dL) (75-99) mg/dL POC Glu Membership Administrator ID Plasma Lactic Acid Yakov (0.7-2.0) mmol/L Calcium 9.3 (8.4-10.2) mg/dL Magnesium 2.9 H (1.6-2.3) mg/dL Total Bilirubin 1.6 H (0.2-1.3) mg/dL AST 57 (17-59) U/L ALT 30 (4-49) U/L Alkaline Phosphatase 70 (38-126) U/L Ammonia (<30) umol/L Creatine Kinase 60 (55-170) U/L Troponin I (0.000-0.034) ng/mL Total Protein 7.4 (6.3-8.2) g/dL Albumin 4.4 (3.5-5.0) g/dL Urine Color Yellow Urine Appearance Cloudy (Clear) Urine pH 5.0 (5.0-8.0) Ur Specific [place] 1.019 (1.001-1.035) Urine Protein 1+ H (Negative) Urine Glucose (UA) Negative (Negative) Urine Ketones Negative (Negative) Urine Blood Moderate H (Negative) Urine Nitrite Negative (Negative) Urine Bilirubin Negative (Negative) Urine Urobilinogen <2.0 (<2.0) mg/dL Ur Leukocyte Esterase Small H (Negative) Urine RBC 82 H (0-5) /hpf Urine WBC 37 H (0-5) /hpf Urine WBC Clumps Few H (None) /hpf Urine Bacteria Rare H (None) /hpf Hyaline Casts 8 H (0-2) /lpf Urine Mucus Rare H (None) /hpf Urine Opiates Screen Not Detected (NotDetected) Ur Oxycodone Screen Not Detected (NotDetected) Urine Methadone Screen Not Detected (NotDetected) Ur Propoxyphene Screen Not Detected (NotDetected) Ur Barbiturates Screen Not Detected (NotDetected) U Tricyclic Antidepress Not Detected (NotDetected) Ur Phencyclidine Scrn Not Detected (NotDetected) Ur Amphetamines Screen Not Detected (NotDetected) U Methamphetamines Scrn Not Detected (NotDetected) U Benzodiazepines Scrn Not Detected (NotDetected) Urine Cocaine Screen Not Detected (NotDetected) U Marijuana (THC) Screen Not Detected (NotDetected) 03/01/19 03/01/19 03/01/19 Range/Units 17:57 17:58 19:35 WBC (3.8-10.6) k/uL RBC (4.30-5.90) m/uL Hgb (13.0-17.5) gm/dL Hct (39.0-53.0) % MCV (80.0-100.0) fL MCH (25.0-35.0) pg MCHC (31.0-37.0) g/dL RDW (11.5-15.5) % Plt Count (150-450) k/uL Neutrophils % % Lymphocytes % % Monocytes % % Eosinophils % % Basophils % % Neutrophils # (1.3-7.7) k/uL Lymphocytes # (1.0-4.8) k/uL Monocytes # (0-1.0) k/uL Eosinophils # (0-0.7) k/uL Basophils # (0-0.2) k/uL Hypochromasia Macrocytosis PT (9.0-12.0) sec INR (<1.2) APTT (22.0-30.0) sec Sample Site r rad ABG pH 7.35 (7.35-7.45) ABG pCO2 53 H (35-45) mmHg ABG pO2 61 L (83-108) mmHg ABG HCO3 29 H (21-25) mmol/L ABG Total CO2 30 H (19-24) mmol/L ABG O2 Saturation 88.6 L (94-97) % ABG Base Excess 3.0 mmol/L Dandre Test Yes VBG pH (7.31-7.41) VBG pCO2 (37-51) mmHg VBG HCO3 (24-28) mmol/L FiO2 100 % Sodium (137-145) mmol/L Potassium (3.5-5.1) mmol/L Chloride (98-107) mmol/L Carbon Dioxide (22-30) mmol/L Anion Gap mmol/L BUN (9-20) mg/dL Creatinine (0.66-1.25) mg/dL Est GFR (CKD-EPI)AfAm (>60 ml/min/1.73 sqM) Est GFR (CKD-EPI)NonAf (>60 ml/min/1.73 sqM) Glucose (74-99) mg/dL POC Glucose (mg/dL) 174 H (75-99) mg/dL POC Glu Membership Administrator ID Donna Prater Plasma Lactic Acid Yakov (0.7-2.0) mmol/L Calcium (8.4-10.2) mg/dL Magnesium (1.6-2.3) mg/dL Total Bilirubin (0.2-1.3) mg/dL AST (17-59) U/L ALT (4-49) U/L Alkaline Phosphatase (38-126) U/L Ammonia (<30) umol/L Creatine Kinase (55-170) U/L Troponin I 0.020 (0.000-0.034) ng/mL Total Protein (6.3-8.2) g/dL Albumin (3.5-5.0) g/dL Urine Color Urine Appearance (Clear) Urine pH (5.0-8.0) Ur Specific [place] (1.001-1.035) Urine Protein (Negative) Urine Glucose (UA) (Negative) Urine Ketones (Negative) Urine Blood (Negative) Urine Nitrite (Negative) Urine Bilirubin (Negative) Urine Urobilinogen (<2.0) mg/dL Ur Leukocyte Esterase (Negative) Urine RBC (0-5) /hpf Urine WBC (0-5) /hpf Urine WBC Clumps (None) /hpf Urine Bacteria (None) /hpf Hyaline Casts (0-2) /lpf Urine Mucus (None) /hpf Urine Opiates Screen (NotDetected) Ur Oxycodone Screen (NotDetected) Urine Methadone Screen (NotDetected) Ur Propoxyphene Screen (NotDetected) Ur Barbiturates Screen (NotDetected) U Tricyclic Antidepress (NotDetected) Ur Phencyclidine Scrn (NotDetected) Ur Amphetamines Screen (NotDetected) U Methamphetamines Scrn (NotDetected) U Benzodiazepines Scrn (NotDetected) Urine Cocaine Screen (NotDetected) U Marijuana (THC) Screen (NotDetected) Critical Care Time Critical Care Time: Yes (31) Disposition Clinical Impression: Respiratory failure, Ventilator dependent Disposition: ADMITTED IP TO THIS [facility] Condition: Critical Referrals: Evan Mary DO [Primary Care Provider] - 1-2 days Decision Time: 19:59
[2019-03-01 18:42] LABS: Basophils # (A) 0.1 k/uL (0-0.2); Basophils % (A) 1 %; Eosinophils # (A) 0.3 k/uL (0-0.7); Eosinophils % (A) 3 %; HCT 49.9 % (39.0-53.0); HGB 14.7 gm/dL (13.0-17.5); Hypochromasia Marked; Lymphocytes # (A) 2.4 k/uL (1.0-4.8); Lymphocytes % (A) 24 %; MCHC 29.5 g/dL (31.0-37.0); MCV 98.3 fL (80.0-100.0); Macrocytosis Slight; Mean Platelet Volume 8.4; Monocytes # (A) 0.7 k/uL (0-1.0); Monocytes % (A) 7 %; Neutrophils # (A) 5.9 k/uL (1.3-7.7); Neutrophils % (A) 60 %; Platelet Count 175 k/uL (150-450); RBC 5.08 m/uL (4.30-5.90); RDW 15.5 % (11.5-15.5); WBC 9.9 k/uL (3.8-10.6)
[2019-03-01 18:46] LABS: Albumin 4.4 g/dL (3.5-5.0); Calcium 9.3 mg/dL (8.4-10.2); Magnesium 2.9 mg/dL (1.6-2.3); Potassium 5.3 mmol/L (3.5-5.1); Total Bilirubin 1.6 mg/dL (0.2-1.3); Total Protein 7.4 g/dL (6.3-8.2)
[2019-03-01 18:47] LABS: INR 1.4 (<1.2); Partial Thromboplastin Time 27.4 sec (22.0-30.0); Prothrombin Time 13.9 sec (9.0-12.0)
[2019-03-01 18:48] LABS: Appearance,Urine Cloudy (Clear); Bacteria,Urine Rare /hpf; Bilirubin,Urine Negative (Negative); Blood,Urine Moderate (Negative); Color,Urine Yellow; Glucose,Urine (UA) Negative (Negative); Hyaline Casts,Urine 8 /lpf (0-2); Ketones,Urine Negative (Negative); Lactic Acid, Venous 9.2 mmol/L (0.7-2.0); Leukocyte Esterase,Urine Small (Negative); Mucus,Urine Rare /hpf; Nitrite,Urine Negative (Negative); Protein,Urine 1+ (Negative); RBC,Urine 82 /hpf (0-5); Specific Gravity,Urine 1.019 (1.001-1.035); Urobilinogen,Urine <2.0 mg/dL (<2.0); VBG PH 7.16 (7.31-7.41); WBC,Urine 37 /hpf (0-5)
[2019-03-01 18:49] LABS: Amphetamine Screen,Urine Not Detected (NotDetected); Barbiturate Screen,Urine Not Detected (NotDetected); Benzodiazepines Screen,Urine Not Detected (NotDetected); Cocaine Screen,Urine Not Detected (NotDetected); Methadone Screen, Urine Not Detected (NotDetected); Opiate Screen,Urine Not Detected (NotDetected); Oxycodone Screen, Urine Not Detected (NotDetected); Phencyclidine Screen,Urine Not Detected (NotDetected); Tricyclic Antidepressant,Urine Not Detected (NotDetected); Urn Cannabinoid Scrn Not Detected (NotDetected)
[2019-03-01] MEDS ORDERED: LACTULOSE 200 GM/300 ML (FROM 1/2 GAL JUG) RECTAL ONE (18:53)
[2019-03-01] MEDS ORDERED: MORPHINE SULFATE 4 MG/ML SYRINGE IVP STA (19:30)
--- NOTE | 2019-03-01 19:31 | XR ---
EXAMINATION: XR chest 1V portable DATE AND TIME: 03/01/2019 6:42 PM CLINICAL INDICATION: PHH; altered mental status TECHNIQUE: AP portable semiupright COMPARISON: 02/11/2017 FINDINGS: Endotracheal tube tip superimposed over the mid trachea, approximately 2 cm above the cecile. NG tube is present which appears to lie along the expected course of the thoracic esophagus. Its tip is superimposed over the expected position of the distal esophagus and into the NG tube may be better placed if advanced 8 cm distally. There is moderate-marked silhouetting of the pulmonary vasculature arborization, not seen on the prio r study. This is predominantly a fine reticular pattern of increased attenuation throughout the mid a nd upper lung zones with areas of coalescence throughout the lower lung zones and with silhouetting o f the hemidiaphragms consistent with bilateral pleural effusions. Cardiac silhouette is markedly enlarged, unchanged. No definite acute skeletal or soft tissue findings are evident. IMPRESSION: Advanced interstitial and alveolar phase pulmonary edema radiographic pattern, presumably cardiogenic etiology, with bilateral pleural effusions and airlessness throughout the lower lobes.
[2019-03-01 19:43] LABS: ABG HCO3 29 mmol/L (21-25); ABG Oxygen Saturation 88.6 % (94-97); ABG PCO2 53 mmHg (35-45); ABG PH 7.35 (7.35-7.45); ABG PO2 61 mmHg (83-108); ABG TCO2 30 mmol/L (19-24); Allen Test Performed? Yes
[2019-03-01] MEDS ORDERED: CEFEPIME 2 GM in SODIUM CHLORIDE 0.9% 100 ML IVPB STA (19:43)
[2019-03-01] MEDS ORDERED: VANCOMYCIN IV PER PHARMACY 1 EACH MISC MISCELLANE PRN (19:43)
[2019-03-01] MEDS ORDERED: ASPIRIN 81 MG PO STA (19:43)
--- NOTE | 2019-03-01 19:44 | CT ---
EXAMINATION: CT brain wo con DATE AND TIME: 03/01/2019 6:55 PM CLINICAL INDICATION: PHH; altered mental status TECHNIQUE: Standard departmental protocol.; ; COMPARISON: 03/21/2016 FINDINGS: The calvarium is intact. There is no intracranial hemorrhage. There is no intracranial mass or mass effect. No definite new intra-axial attenuation defect, but mul ti focal bilateral barlow radiata and centrum semiovale low-attenuation areas are redemonstrated. In addition, there is an old right frontal lobe parafalcine band of encephalomalacia redemonstrated, con sistent with remote infarction in the vascular territory of the right anterior cerebral artery. Extra-axial compartment evaluation unremarkable. The paranasal sinuses, middle ear cavities, and mastoid sinus air cells are clear. The orbits are unremarkable. IMPRESSION: No definite acute CT process.
[2019-03-01] MEDS ORDERED: VANCOMYCIN 1,750 MG in SODIUM CHLORIDE 0.9% 500 ML 500 ML IVPB STA (19:47)
[2019-03-01] MEDS: FUROSEMIDE 10 MG/ML 4 ML VIAL IV STA ×2 (20:00→21:31)
[2019-03-01] MEDS ORDERED: NALOXONE 0.4 MG/ML 1 ML VIAL IV PRN (20:00)
[2019-03-01] MEDS ORDERED: fentaNYL (PF) 50 MCG/ML 2 ML AMP IVP STA (20:06)
[2019-03-01] MEDS ORDERED: MIDAZOLAM 1 MG/ML 5 ML VIAL IV STA (20:07)
[2019-03-01] MEDS ORDERED: PROPOFOL 1,000 MG in EMPTY BAG 1 BAG IV ONE (20:18)
[2019-03-01] MEDS ORDERED: SODIUM CHLORIDE 0.9% 1,000 ML IV STA (21:00)
[2019-03-01 21:57] LABS: Glucose,Whole Blood 149 mg/dL (75-99)
[2019-03-01 22:14] LABS: ABG Base Excess 1.3 mmol/L; ABG HCO3 27 mmol/L (21-25); ABG Oxygen Saturation 84.5 % (94-97); ABG PCO2 52 mmHg (35-45); ABG PH 7.33 (7.35-7.45); ABG TCO2 29 mmol/L (19-24); Allen Test Performed? Yes
[2019-03-01 22:43] LABS: ABG PO2 56 mmHg (83-108)
[2019-03-01] MEDS: PROPOFOL 1,000 MG in EMPTY BAG 1 BAG IV SCH (23:43)
[2019-03-01] MEDS: NOREPINEPHRINE 4 MG in SODIUM CHLORIDE 0.9% 250 ML IV SCH (23:46)
[2019-03-02] MEDS: APIXABAN 5 MG TAB PO SCH ×3 (00:03→20:20)
[2019-03-02] MEDS: levETIRAcetam 500 MG TAB PO SCH ×3 (00:03→20:22)
[2019-03-02] MEDS: ATORVASTATIN 20 MG TAB PO SCH ×2 (00:03→20:21)
[2019-03-02] MEDS: FUROSEMIDE 10 MG/ML 4 ML VIAL IV SCH ×2 (00:19→09:07)
[2019-03-02] MEDS: SODIUM CHLORIDE 0.9% 1,000 ML IV SCH ×2 (01:46→20:39)
[2019-03-02 03:42] LABS: ABG Base Excess 3.5 mmol/L; ABG HCO3 27 mmol/L (21-25); ABG Oxygen Saturation 99.8 % (94-97); ABG PCO2 36 mmHg (35-45); ABG PH 7.48 (7.35-7.45); ABG PO2 161 mmHg (83-108); ABG TCO2 28 mmol/L (19-24); Allen Test Performed? Yes
[2019-03-02] MEDS ORDERED: ACETAMINOPHEN TAB 325 MG TAB PO PRN (03:53)
[2019-03-02] MEDS ORDERED: IPRATROPIUM-ALBUTEROL 3 ML NEB INHALATION PRN (04:18)
[2019-03-02 05:12] LABS: Basophils # (A) 0.2 k/uL (0-0.2); Basophils % (A) 2 %; Eosinophils # (A) 0.3 k/uL (0-0.7); Eosinophils % (A) 3 %; HGB 14.3 gm/dL (13.0-17.5); Hypochromasia Slight; Lymphocytes # (A) 0.6 k/uL (1.0-4.8); Lymphocytes % (A) 7 %; MCH 29.4 pg (25.0-35.0); MCV 94.6 fL (80.0-100.0); Mean Platelet Volume 9.9; Monocytes # (A) 0.7 k/uL (0-1.0); Monocytes % (A) 8 %; Neutrophils # (A) 6.5 k/uL (1.3-7.7); Neutrophils % (A) 76 %; Platelet Count 132 k/uL (150-450); RBC 4.87 m/uL (4.30-5.90); RDW 15.5 % (11.5-15.5); WBC 8.6 k/uL (3.8-10.6)
[2019-03-02 05:22] LABS: Calcium 8.4 mg/dL (8.4-10.2)
[2019-03-02 06:28] LABS: Glucose,Whole Blood 73 mg/dL (75-99)
[2019-03-02] MEDS: IPRATROPIUM-ALBUTEROL 3 ML NEB INHALATION SCH ×5 (07:48→23:44)
--- NOTE | 2019-03-02 08:02 | P.CNPUL ---
History of Present Illness Consult date: 03/02/19 Reason for consult: dyspnea History of present illness: 79-year-old male patient who presented yesterday to the emergency department and severe respiratory distress and respiratory failure. The patient was having progressive increasing lower extremity edema over the past 3 days and was asked by his primary care physician to increase his diuretics. Unable to get any history from him at a time of his arrival to the emergency. He was in atrial fibrillation. No significant tachycardia. No reported chest pain. He is known to have congestion heart failure with diastolic heart failure and previous history of CVA and chronic A. fib in addition to hypertension and hyperlipidemia. The patient had that point was intubated as he was becoming more tachypneic and he was in overt respiratory failure and he developed severe hypoxemia. Post intubation, the patient was brought into the intensive care unit for further evaluation. Chest x-ray post intubation showed massive cardiomegaly with pulmonary edema. The initial troponin was 0.02. Lactic acid was at 9.2. Urine drug screen was negative. EKG was consistent with atrial fibrillation. His echocardiogram from 2 years ago showed diastolic heart failure with a preserved LV function and an ejection fraction of 50-55%. RV was widely dilated. RA was enlarged. There was [id number] mitral regurgitation and moderate tricuspid regurgitation and mild pulmonary hypertension and evidence of aortic valve stenosis. Overnight, the patient was kept on a mechanical ventilator. Blood gases was quite abnormal at the time of his arrival to the ICU with a pH of 7.33 with a pCO2 of 52 and pO2 of 56. I put the patient on a PEEP of 12 with an FiO2 of 100% and tidal volume of 500 with a rate of 24. His current peak airway pressures around 24. His most recent blood gas showed a pH of 7.48 with a pCO2 of 36 and pO2 161. He was briefly placed on pressors and he was receiving norepinephrine infusion 0.05 mg per KG per minute. This improved his urine output. Lactic acid level is down to 1.7. His creatinine is down to 1.2. Is producing adequate amount of urine output in the order of 100 mL an hour and is currently receiving Lasix 40 mg every 6 hours. He was given a total of 2 L of IV fluid in the emergency department currently his IV fluids at KVO. Pulse ox 99%. Afebrile. He received a dose of cefepime and vancomycin. His troponin maxed at 0.157. Is on Eliquis for long-term anticoagulation. UA was abnormal and cultures are still pending for now. 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 History of Any Multi-Drug Resistant Organisms: None Reported Additional Past Surgical History / Comment(s): colonoscopy x3, Past Anesthesia/Blood Transfusion Reactions: No Reported Reaction Past Psychological History: No Psychological Hx Reported Smoking Status: Unknown if ever smoked Past Alcohol Use History: None Reported Past Drug Use History: None Reported - Past Family History Sister(s) Family Medical History: Diabetes Mellitus, Myocardial Infarction (DC) Additional Family Medical History / Comment(s): sister from an DC Mother Family Medical History: No Reported History Additional Family Medical History / Comment(s): multiple sclerosis Son(s) Family Medical History: Hypertension Father Additional Family Medical History / Comment(s): ETOH abuse Medications and Allergies Home Medications Medication Instructions Recorded Confirmed Type Simvastatin [Zocor] 40 mg PO HS 10/23/14 03/01/19 History Apixaban [Eliquis] 5 mg PO BID tab 11/09/14 03/01/19 Rx Metoprolol Succinate [Toprol XL] 100 mg PO HS 03/06/15 03/01/19 History Cholecalciferol [Vitamin D3 (25 1,000 unit PO DAILY 11/05/15 03/01/19 History Mcg = 1000 Iu)] Multivitamins, Thera [Multivitamin 1 tab PO DAILY 11/05/15 03/01/19 History (formulary)] amLODIPine BESYLATE/BENAZEPRIL 1 cap PO DAILY 11/05/15 03/01/19 History [amLODIPine BESYLATE/BENAZEPRIL 5-20 MG] Aspirin EC [Ecotrin Low Dose] 81 mg PO DAILY 03/20/16 03/01/19 History levETIRAcetam [Keppra] 500 mg PO Q12HR #60 tab 03/24/16 03/01/19 Rx Furosemide [Lasix] 40 mg PO DAILY #30 tablet 02/12/17 03/01/19 Rx Spironolactone [Aldactone] 25 mg PO HS 03/01/19 03/01/19 History Allergies Allergy/AdvReac Type Severity Reaction Status Date / Time No Known Allergies Allergy Verified 03/01/19 19:56 Physical Exam Vitals: Vital Signs Temp Pulse Resp BP Pulse Ox 03/02/19 07:00 96 24 105/74 100 03/02/19 06:00 83 24 102/69 100 03/02/19 05:00 80 24 103/83 100 03/02/19 04:00 98.9 F 85 24 109/70 100 03/02/19 03:00 75 24 107/79 100 03/02/19 02:00 78 24 97/72 99 03/02/19 01:00 79 24 103/82 98 03/02/19 00:00 80 24 97/76 97 03/01/19 23:00 83 24 84/61 87 L 03/01/19 22:00 95.3 F L 75 24 86/60 82 L 03/01/19 21:17 85 18 98/76 86 L 03/01/19 21:00 90 18 87/66 87 L 03/01/19 20:33 100 18 100/61 92 L 03/01/19 20:25 99 18 73/49 92 L 03/01/19 20:09 95 18 87/79 95 03/01/19 20:05 100 18 98/80 95 03/01/19 19:55 82 18 95/67 94 L 03/01/19 19:50 97 18 101/79 93 L 03/01/19 19:45 105 H 18 91/74 94 L 03/01/19 19:40 95 18 108/68 94 L 03/01/19 19:35 101 H 18 133/72 95 03/01/19 19:30 99 18 129/94 96 03/01/19 19:20 94 18 109/90 96 03/01/19 19:15 101 H 18 131/98 95 03/01/19 19:10 103 H 18 131/108 96 03/01/19 19:00 86 18 128/96 95 03/01/19 18:53 105 H 18 125/97 92 L 03/01/19 18:35 98 18 110/84 96 03/01/19 18:25 101 H 18 95/83 97 03/01/19 18:15 107 H 90/62 93 L 03/01/19 18:00 100 20 113/75 78 L 03/01/19 17:59 10 L 03/01/19 17:58 96 10 L 101/87 69 L 03/01/19 17:57 10 L 03/01/19 17:56 84 18 95/71 83 L 03/01/19 17:53 91 10 L 95/71 77 L Intake and Output 03/01/19 03/02/19 03/02/19 22:59 06:59 14:59 Intake Total 1958.991 56.844 Output Total 710 150 Balance 1248.991 -93.156 Intake: IV 100 0.9 Normal Saline 100 Intake, IV Titration 1858.991 56.844 Amount Norepinephrine 4 mg In 108.991 6.844 Sodium Chloride 0.9% 250 ml @ 0.05 MCG/KG/MIN 19. 01 mls/hr IV .[id number] EUNICE Rx#:[id number] Sodium Chloride 0.9% 1, 250 50 000 ml @ 50 mls/hr IV . Q20H EUNICE Rx#:[id number] Sodium Chloride 0.9% 1, 1000 000 ml @ 999 mls/hr IV . Q1H1M STA Rx#:[id number] Vancomycin 1,750 mg In 500 Sodium Chloride 0.9% 500 ml 500 ml @ 167 mls/hr IVPB ONCE STA Rx#: [id number] Output: Urine 710 150 Other: Voiding Method Indwelling Catheter Weight 109.4 kg 109.4 kg Intubated, comfortable likely distress. Sedated on propofol which is running at 30 g per KG per minute. Head exam was generally normal. There was no scleral icterus or corneal arcus. Mucous membranes were moist. Neck was supple and with jugular venous distension, without thyromegaly, or carotid bruits. Carotids were easily palpable bilaterally. There was no adenopathy. There is positive JVDs at 30 bed elevation. There is no goiter or neck masses. Lungs sounds are diminished in lung bases along with some bibasilar crackles. No wheezes or rhonchi. Heart sounds are irregular, positive S1-S2 and there is a systolic ejection murmur grade 3/6 heard over the left lateral sternal border and apex. This is radiating to the neck. Abdominal exam revealed normal bowel sounds. The abdomen was soft, non-tender, and without masses, organomegaly, or appreciable enlargement of the abdominal aorta. Extremities revealed +1-2 pitting edema. No cyanosis. No clubbing. Some superficial ulceration. No open wounds or sores. No cellulitis. Neurologically the patient is was sedated. He can arouse from sedation easily upon stimulation. Is moving all 4 extremities upon Nicole stimulation. Pupils are equal and reactive to light. Examination of the skin revealed no evidence of significant rashes, suspicious appearing nevi or other concerning lesions. Results - Laboratory Findings CBC and BMP: 03/02/19 05:01 03/02/19 05:01 ABG ABG pH 7.48 (7.35-7.45) H 03/02/19 03:38 ABG pCO2 36 mmHg (35-45) 03/02/19 03:38 ABG pO2 161 mmHg (83-108) H 03/02/19 03:38 ABG O2 Saturation 99.8 % (94-97) H 03/02/19 03:38 PT/INR, D-dimer PT 13.9 sec (9.0-12.0) H 03/01/19 17:57 INR 1.4 (<1.2) H 03/01/19 17:57 Abnormal lab findings: Abnormal Labs 03/01/19 03/01/19 03/01/19 17:57 17:57 17:57 MCHC 29.5 L Plt Count Lymphocytes # PT INR ABG pH ABG pCO2 ABG pO2 ABG HCO3 ABG Total CO2 ABG O2 Saturation VBG pH 7.16 L* VBG pCO2 77 H* Potassium Chloride BUN Creatinine Glucose POC Glucose (mg/dL) Plasma Lactic Acid Yakov 9.2 H* Magnesium Total Bilirubin Ammonia 58 H Troponin I Urine Protein Urine Blood Ur Leukocyte Esterase Urine RBC Urine WBC Urine WBC Clumps Urine Bacteria Hyaline Casts Urine Mucus 03/01/19 03/01/19 03/01/19 17:57 17:57 17:57 MCHC Plt Count Lymphocytes # PT 13.9 H INR 1.4 H ABG pH ABG pCO2 ABG pO2 ABG HCO3 ABG Total CO2 ABG O2 Saturation VBG pH VBG pCO2 Potassium 5.3 H Chloride 95 L BUN 40 H Creatinine 1.48 H Glucose 193 H POC Glucose (mg/dL) Plasma Lactic Acid Yakov Magnesium 2.9 H Total Bilirubin 1.6 H Ammonia Troponin I Urine Protein 1+ H Urine Blood Moderate H Ur Leukocyte Esterase Small H Urine RBC 82 H Urine WBC 37 H Urine WBC Clumps Few H Urine Bacteria Rare H Hyaline Casts 8 H Urine Mucus Rare H 03/01/19 03/01/19 03/01/19 17:58 19:35 21:46 MCHC Plt Count Lymphocytes # PT INR ABG pH ABG pCO2 53 H ABG pO2 61 L ABG HCO3 29 H ABG Total CO2 30 H ABG O2 Saturation 88.6 L VBG pH VBG pCO2 Potassium Chloride BUN Creatinine Glucose POC Glucose (mg/dL) 174 H 149 H Plasma Lactic Acid Yakov Magnesium Total Bilirubin Ammonia Troponin I Urine Protein Urine Blood Ur Leukocyte Esterase Urine RBC Urine WBC Urine WBC Clumps Urine Bacteria Hyaline Casts Urine Mucus 03/01/19 03/01/19 03/01/19 22:04 22:10 23:36 MCHC Plt Count Lymphocytes # PT INR ABG pH 7.33 L ABG pCO2 52 H ABG pO2 56 L* ABG HCO3 27 H ABG Total CO2 29 H ABG O2 Saturation 84.5 L VBG pH VBG pCO2 Potassium Chloride BUN Creatinine Glucose POC Glucose (mg/dL) Plasma Lactic Acid Yakov 3.6 H* Magnesium Total Bilirubin Ammonia Troponin I 0.054 H* Urine Protein Urine Blood Ur Leukocyte Esterase Urine RBC Urine WBC Urine WBC Clumps Urine Bacteria Hyaline Casts Urine Mucus 03/02/19 03/02/19 03/02/19 03:38 04:58 05:01 MCHC Plt Count 132 L Lymphocytes # 0.6 L PT INR ABG pH 7.48 H ABG pCO2 ABG pO2 161 H ABG HCO3 27 H ABG Total CO2 28 H ABG O2 Saturation 99.8 H VBG pH VBG pCO2 Potassium Chloride BUN Creatinine Glucose POC Glucose (mg/dL) Plasma Lactic Acid Yakov Magnesium Total Bilirubin Ammonia Troponin I 0.157 H* Urine Protein Urine Blood Ur Leukocyte Esterase Urine RBC Urine WBC Urine WBC Clumps Urine Bacteria Hyaline Casts Urine Mucus 03/02/19 03/02/19 05:01 06:06 MCHC Plt Count Lymphocytes # PT INR ABG pH ABG pCO2 ABG pO2 ABG HCO3 ABG Total CO2 ABG O2 Saturation VBG pH VBG pCO2 Potassium Chloride BUN 40 H Creatinine 1.27 H Glucose POC Glucose (mg/dL) 73 L Plasma Lactic Acid Yakov Magnesium Total Bilirubin Ammonia Troponin I Urine Protein Urine Blood Ur Leukocyte Esterase Urine RBC Urine WBC Urine WBC Clumps Urine Bacteria Hyaline Casts Urine Mucus - Diagnostic Findings Chest x-ray: image reviewed Assessment and Plan Plan: 1 acute hypoxic respiratory failure secondary to CHF/pulmonary edema. Patient is currently intubated on a mechanical ventilator. 2 CHF with diastolic heart failure based on a previous echocardiogram from 2017. Consider underlying valvular heart disease including the possibility of aortic stenosis as the patient has a harsh murmur heard on examination on today's evaluation. 3 abnormal troponin, consider a non-ST segment elevation myocardial infarction versus troponin leak related to decompensated heart failure 4 acute lactic acidosis secondary to above, recovered 5 chronic atrial fibrillation rate is controlled and the patient is on long-term anticoagulation with Eliquis 6 lower extremity edema secondary to become stated heart failure 7 hypotension requiring pressors, improved and the patient is currently off pressors maintaining his own blood pressure. 8 CVA history of 9 seizure history currently on Keppra 10 hypertension 11 history of prostate cancer post radiation therapy 12 hyperlipidemia 13 acute kidney injury secondary to above Plan Continue vent support and necessity ventilator changes were done. The patient's FiO2 can be gradually weaned down. Dropped a respiratory rate down to 18 as the blood gases shows a component of respiratory acidosis. Continue IV Lasix 40 mg every 8 hours Monitor blood pressure and urine output and creatinine and electrolytes Echocardiogram Cardiology consultation Keep the patient on propofol for sedation IV fluids to KVO IV Protonix Empiric antibiotic coverage with IV cefepime and discontinue the vancomycin Resume Eliquis for anticoagulation as the patient is in chronic atrial fibrillation continue Keppra Inserted triple-lumen catheter and monitor CVP Insert an arterial line catheter Monitor blood gases We'll continue to follow. Condition is critical and the patient will be kept in ICU. Time with Patient: Greater than 30
[2019-03-02] MEDS: PROPOFOL 1,000 MG in EMPTY BAG 1 BAG IV SCH (08:05)
[2019-03-02] MEDS ORDERED: CISATRACURIUM 2 MG/ML 5 ML VIAL IV ONE (08:52)
--- NOTE | 2019-03-02 08:54 | XR ---
EXAMINATION TYPE: XR chest 1V portable DATE OF EXAM: 03/02/2019 COMPARISON: 03/01/2019 INDICATION: Tube placement, difficulty breathing TECHNIQUE: Single frontal view of the chest is obtained. FINDINGS: The heart size is prominent. The pulmonary vasculature is normal. Mild infiltrate is at the right and left lung bases. Small effusions are not excluded. An endotracheal tube is present with the tip above the cecile. Nasogastric tube is present, tip may b e within the distal esophageal region and should be advanced. IMPRESSION: 1. Cardiomegaly. 2. Bibasilar infiltrates and small pleural effusions. 3. Endotracheal tube in position. 4. Nasogastric tube tip appears to be within the region of the distal esophagus and should be advance d.
[2019-03-02] MEDS: CEFEPIME 2 GM in SODIUM CHLORIDE 0.9% 100 ML IVPB SCH ×2 (09:06→20:23)
[2019-03-02] MEDS: CHLORHEXIDINE GLUCONATE 15 ML CUP MUCOUS MEM SCH ×2 (09:06→20:23)
[2019-03-02] MEDS: PANTOPRAZOLE 40 MG/10 ML VIAL IV SCH (09:07)
[2019-03-02] MEDS: ASPIRIN 81 MG PO SCH (09:07)
--- NOTE | 2019-03-02 09:44 | XR ---
EXAMINATION TYPE: XR chest 1V confirm line [facility] DATE OF EXAM: 03/02/2019 COMPARISON: 03/02/2019 earlier exam INDICATION: Line placement TECHNIQUE: Single frontal view of the chest is obtained. FINDINGS: The heart size is enlarged. The pulmonary vasculature is normal. Small bibasilar infiltrates and/or pleural effusions are present. Endotracheal tube tip is above the cecile. Nasogastric tube extends towards the gastroesophageal junc tion and should be advanced into the stomach. There is placement of a left central venous catheter which extends superiorly out of the [id number]. No pneumothorax is evident. IMPRESSION: 1. Placement of a left central venous catheter into the internal jugular vein extending superiorly to wards the head. 2. No pneumothorax. 3. Cardiomegaly. 4. Small bibasilar infiltrates and/or pleural effusions. 5. Nasogastric tube should be advanced.
[2019-03-02] MEDS ORDERED: VANCOMYCIN 1,500 MG in SODIUM CHLORIDE 0.9% 250 ML IVPB SCH (12:00)
[2019-03-02] MEDS: NOREPINEPHRINE 32 MG in SODIUM CHLORIDE 0.9% 218 ML IV SCH (12:01)
[2019-03-02] MEDS: FUROSEMIDE 100 MG in SODIUM CHLORIDE 0.9% 90 ML IV SCH ×2 (12:02→20:39)
--- NOTE | 2019-03-02 12:12 | CONS ---
CONSULTATION Mr. Martin is a 79-year-old gentleman who is seen for cardiac evaluation. This patient's electronic medical records reviewed. This patient came to the emergency room with severe respiratory distress and respiratory failure. The patient has a progressively increasing lower extremity edema over the last 3-4 days. The patient's primary care physician asked him to increase the diuretic, but the patient continues to be in significant respiratory distress and he came to the emergency room. In the emergency room, patient was in acute pulmonary edema. His lactic acid was 9.2 and troponin was 0.02. Patient has underlying chronic atrial fibrillation and patient was intubated. Patient currently remains intubated. He has been getting IV diuretics with a moderate response of 30-40 mL/hour. Patient initial blood gases showed pH of 7.33, pCO2 of 52, and PO2 of 56. This patient had an echocardiogram done in 2017 here. At that time he had mild aortic stenosis and LV function was normal. The patient's lactic acid level is now 1.9. PAST MEDICAL HISTORY: Includes a history of a CVA, atrial fibrillation, history of prostate cancer, hypertension, hyperlipidemia, and post epilepsy. Patient is on Keppra. Patient's home medications include Eliquis twice a day, Zocor 40 mg daily, Toprol 100 mg daily, baby aspirin once a day, Lasix once a day, spironolactone 25 mg daily. PHYSICAL EXAMINATION: At present reveals a 79-year-old gentleman who is currently intubated. Patient's blood pressure is 90-100/60 mmHg. HEENT: Examination is negative. NECK: Supple. Jugular venous pressure is elevated. Both the carotid pulses are felt. There is no bruit. HEART: First and second heart sounds are normal. There is a grade 2/6 ejection systolic murmur noted. LUNGS: Reveal bilateral scattered rales and rhonchi. ABDOMEN: Negative. EXTREMITIES: There is 2 to 3+ pedal edema. Patient's chest x-ray shows pulmonary edema. Patient's arterial blood gases this morning shows a pH of 7.48, pCO2 is 36, PO2 is 161, creatinine is 1.27. Patient's lactic acid is 1.7. Patient's initial troponin was normal. The repeat troponin was 0.157. Patient's echocardiogram reveals which shows normal left ventricular systolic functions. The aortic valve is calcified with significantly reduced opening and peak gradient of 50 mmHg is noted. Patient also has a severe pulmonary hypertension. FINAL IMPRESSION: This patient presented with acute pulmonary edema with chronic atrial fibrillation. The patient seems to be improving. We will start the patient on IV Lasix drip and Aldactone would be increased. Patient has an echocardiogram, shows evidence of severe aortic stenosis. Once the patient's condition improves, he should be considered for TAVR. SHANIQUA / ELOISEN: [id number] /
[2019-03-02 12:25] LABS: Glucose,Whole Blood 101 mg/dL (75-99)
--- NOTE | 2019-03-02 12:45 | XR ---
EXAMINATION TYPE: XR chest 1V confirm line [facility] DATE OF EXAM: 03/02/2019 COMPARISON: 03/02/2019 earlier exam INDICATION: Line placement TECHNIQUE: Single frontal view of the chest is obtained. FINDINGS: The heart size is enlarged. The pulmonary vasculature is normal. Small bilateral pleural effusions are present. Endotracheal tube and nasogastric tube are unchanged in position. Nasogastric tube should be advanced . Left central venous catheter is been adjusted and now has its tip located within the region of the cruz perior vena cava. No pneumothorax is evident. IMPRESSION: 1. Small bilateral infiltrates with small pleural effusions. 2. No pneumothorax post left central venous catheter placement. Tip is in the superior vena cava robert on. 3. Recommend advancement of the nasogastric tube
[2019-03-02] MEDS: NOREPINEPHRINE 4 MG in SODIUM CHLORIDE 0.9% 250 ML IV SCH (13:12)
[2019-03-02] MEDS: SPIRONOLACTONE 25 MG TAB PO SCH ×2 (14:07→20:21)
[2019-03-02 19:30] LABS: Glucose,Whole Blood 107 mg/dL (75-99)
[2019-03-03] MEDS: PROPOFOL 1,000 MG in EMPTY BAG 1 BAG IV SCH ×5 (00:09→18:55)
[2019-03-03 00:17] LABS: Glucose,Whole Blood 174 mg/dL (75-99)
[2019-03-03] MEDS: IPRATROPIUM-ALBUTEROL 3 ML NEB INHALATION SCH ×6 (03:40→23:12)
[2019-03-03 03:46] LABS: Basophils # (A) 0.1 k/uL (0-0.2); Basophils % (A) 1 %; Eosinophils # (A) 0.2 k/uL (0-0.7); Eosinophils % (A) 2 %; HCT 48.2 % (39.0-53.0); HGB 15.4 gm/dL (13.0-17.5); Hypochromasia Slight; Lymphocytes # (A) 0.8 k/uL (1.0-4.8); Lymphocytes % (A) 10 %; MCH 29.7 pg (25.0-35.0); MCHC 32.1 g/dL (31.0-37.0); MCV 92.6 fL (80.0-100.0); Mean Platelet Volume 9.8; Monocytes # (A) 0.8 k/uL (0-1.0); Monocytes % (A) 10 %; Neutrophils # (A) 6.2 k/uL (1.3-7.7); Neutrophils % (A) 74 %; Platelet Count 156 k/uL (150-450); RDW 15.5 % (11.5-15.5); WBC 8.3 k/uL (3.8-10.6)
[2019-03-03 03:55] LABS: Calcium 8.1 mg/dL (8.4-10.2); Potassium 3.5 mmol/L (3.5-5.1)
[2019-03-03] MEDS ORDERED: Potassium Replacement Protocol 1 EACH MISC MISCELLANE PRN (04:17)
[2019-03-03 04:53] LABS: ABG Base Excess 7.8 mmol/L; ABG HCO3 32 mmol/L (21-25); ABG PCO2 43 mmHg (35-45); ABG PH 7.47 (7.35-7.45); ABG PO2 111 mmHg (83-108); ABG TCO2 33 mmol/L (19-24); Allen Test Performed? Yes
[2019-03-03] MEDS ORDERED: POTASSIUM BICARBONATE/CIT AC 20 MEQ TABLET.EFF NG-TUBE SCH (05:00)
--- NOTE | 2019-03-03 05:18 | XR ---
EXAM: XR Chest, 1 View CLINICAL HISTORY: Its. reason XR Reason: Tube placement TECHNIQUE: Frontal view of the chest. COMPARISON: Chest x-ray performed yesterday. FINDINGS: Lungs: See below. Pleural space: Continued small pleural effusions. Bibasilar atelectasis/consolidation, greater on the left. No pneumothorax. Heart: Enlarged cardiac silhouette is stable. Mediastinum: Unremarkable. Bones/joints: Unremarkable. Tubes, lines and devices: Enteric tube side ports in the distal esophagus and tip at the gastroesophageal junction. Recommend advancement. ET tube 2.6 cm above the cecile. Left subclavian central venous catheter tip in the low SVC. IMPRESSION: Enteric tube side ports in the distal esophagus and tip at the gastroesophageal junction. Recommend advancement. Continued small pleural effusions with bibasilar atelectasis/consolidation, greater on left. Continued enlarged cardiac silhouette.
[2019-03-03] MEDS ORDERED: DILTIAZEM 5 MG/ML 5 ML VIAL IVP STA (05:39)
[2019-03-03] MEDS: DILTIAZEM 125 MG in SODIUM CHLORIDE 0.9% 100 ML IV SCH (05:42)
[2019-03-03] MEDS: METOPROLOL TARTRATE 25 MG TAB PO SCH ×3 (05:51→21:17)
--- NOTE | 2019-03-03 05:56 | XR ---
EXAM: XR Chest, 1 View CLINICAL HISTORY: Its. reason XR Reason: OG placement TECHNIQUE: Frontal view of the chest. COMPARISON: Chest x-ray done yesterday. FINDINGS: Lungs: See below. Pleural space: Enlarged cardiac stable. Continued small pleural effusions with atelectasis/consolidation, greater on left. No pneumothorax. Heart: Unremarkable. No cardiomegaly. Mediastinum: Unremarkable. Bones/joints: Unremarkable. Tubes, lines and devices: Enteric tube coursing into the left upper quadrant. Tip collimated from field of view. ET tube 2.7 cm above the cecile. Left subclavian central venous catheter with tip in the low SVC. IMPRESSION: 1. Enteric tube tip coursing into left upper quadrant. 2. Continued small pleural effusions with basilar atelectasis/consolidation.
[2019-03-03] MEDS: POTASSIUM CHLORIDE 20 MEQ in WATER FOR INJECTION 1 100ML.BAG IVPB SCH ×2 (06:20→11:31)
[2019-03-03 06:29] LABS: Glucose,Whole Blood 114 mg/dL (75-99)
[2019-03-03] MEDS: FUROSEMIDE 100 MG in SODIUM CHLORIDE 0.9% 90 ML IV SCH ×3 (06:41→23:16)
[2019-03-03] MEDS: PANTOPRAZOLE 40 MG/10 ML VIAL IV SCH (09:51)
[2019-03-03] MEDS: levETIRAcetam 500 MG TAB PO SCH ×2 (09:51→21:16)
[2019-03-03] MEDS: ASPIRIN 81 MG PO SCH (09:51)
[2019-03-03] MEDS: SPIRONOLACTONE 25 MG TAB PO SCH ×2 (09:51→21:17)
[2019-03-03] MEDS: CHLORHEXIDINE GLUCONATE 15 ML CUP MUCOUS MEM SCH ×2 (09:51→21:17)
[2019-03-03] MEDS: CEFEPIME 2 GM in SODIUM CHLORIDE 0.9% 100 ML IVPB SCH ×2 (09:51→21:17)
[2019-03-03] MEDS: APIXABAN 5 MG TAB PO SCH ×2 (09:51→21:17)
[2019-03-03] MEDS ORDERED: DIGOXIN 250 MCG/ML 2 ML AMP IVP ONE (10:45)
--- NOTE | 2019-03-03 10:45 | P.PN ---
Subjective Progress Note Date: 03/03/19 79-year-old male patient who presented yesterday to the emergency department and severe respiratory distress and respiratory failure. The patient was having progressive increasing lower extremity edema over the past 3 days and was asked by his primary care physician to increase his diuretics. Unable to get any history from him at a time of his arrival to the emergency. He was in atrial fibrillation. No significant tachycardia. No reported chest pain. He is known to have congestion heart failure with diastolic heart failure and previous history of CVA and chronic A. fib in addition to hypertension and hyperlipidemia. The patient had that point was intubated as he was becoming more tachypneic and he was in overt respiratory failure and he developed severe hypoxemia. Post intubation, the patient was brought into the intensive care unit for further evaluation. Chest x-ray post intubation showed massive cardiomegaly with pulmonary edema. The initial troponin was 0.02. Lactic acid was at 9.2. Urine drug screen was negative. EKG was consistent with atrial fibrillation. His echocardiogram from 2 years ago showed diastolic heart failure with a preserved LV function and an ejection fraction of 50-55%. RV was widely dilated. RA was enlarged. There was [id number] mitral reg urgitation and moderate tricuspid regurgitation and mild pulmonary hypertension and evidence of aortic valve stenosis. Overnight, the patient was kept on a mechanical ventilator. Blood gases was quite abnormal at the time of his arrival to the ICU with a pH of 7.33 with a pCO2 of 52 and pO2 of 56. I put the patient on a PEEP of 12 with an FiO2 of 100% and tidal volume of 500 with a rate of 24. His current peak airway pressures around 24. His most recent blood gas showed a pH of 7.48 with a pCO2 of 36 and pO2 161. He was briefly placed on pressors and he was receiving norepinephrine infusion 0.05 mg per KG per minute. This improved his urine output. Lactic acid level is down to 1.7. His creatinine is down to 1.2. Is producing adequate amount of urine output in the order of 100 mL an hour and is currently receiving Lasix 40 mg every 6 hours. He was given a total of 2 L of IV fluid in the emergency department currently his IV fluids at KVO. Pulse ox 99%. Afebrile. He received a dose of cefepime and vancomycin. His troponin maxed at 0.157. Is on Eliquis for long-term anti coagulation. UA was abnormal and cultures are still pending for now. on 03/03/2019 the patient is being seen for a follow-up. This morning she is well sedated with propofol which is currently running at 30 mics per KG per minute. The patient is was sedated and the patient is calm and comfortable success with the mechanical ventilator. He is an assist-control mode at the rate of 18 with a tidal volume of 500 with an FiO2 of 50% and PEEP of 12. The chest x-ray still showing hepatomegaly and pulmonary edema. The blood gases from this morning showed a pH of 7.47 with a pCO2 of 43 and pO2 of 111 and this was on FiO2 of 50%. The patient's peak airway pressure is around 29. He is on a Lasix drip at 10 mg an hour and the patient is producing excellent urine output. The patient is a negative fluid balance of 3.3 L over the past 24 hours. He had to be supported by the low-fat for blood pressure support. His Levothroid is running at 0.2 g per KG commands. Cardizem drip at 10 mg an hour for rate control as the patient is in atrial fibrillation. Echocardiogram was done and it showed severe aortic stenosis, final report is still pending for now. Creatinine is improving. The patient's serum creatinine is down to 1.26. Lactic acid level is normalized. Troponin peaked at 0.157. BNP level is declining. He is afebrile. Objective - Vital Signs Vital signs: Vital Signs Temp 97.3 F L 03/03/19 00:00 Pulse 116 H 03/03/19 09:41 Resp 18 03/03/19 07:30 BP 120/81 03/03/19 07:30 Pulse Ox 99 03/03/19 07:30 Intake & Output 03/02/19 03/03/19 03/03/19 18:59 06:59 18:59 Intake Total 617.530 779.391 251.296 Output Total 1935 2825 200 Balance -1317.470 -2045.609 51.296 Weight 108.1 kg Intake: IV 220 320 30 0.9 Normal Saline 220 320 30 Intake, IV Titration 397.530 459.391 221.296 Amount Cefepime 2 gm In Sodium 100 Chloride 0.9% 100 ml @ 200 mls/hr IVPB ONCE [facility] Rx#:[id number] Cefepime 2 gm In Sodium 100 Chloride 0.9% 100 ml @ 200 mls/hr IVPB Q12HR [facility] Rx#:[id number] Diltiazem 125 mg In 29.417 Sodium Chloride 0.9% 100 ml @ 5 MG/HR 5 mls/hr IV .Q24H [facility] Rx#:[id number] Furosemide 100 mg In 186.167 Sodium Chloride 0.9% 90 ml @ 10 MG/HR 10 mls/hr IV .Q10H [facility] Rx#: [id number] Norepinephrine 32 mg In 15.839 77.061 41.879 Sodium Chloride 0.9% 218 ml @ 0.05 MCG/KG/MIN 2. 564 mls/hr IV .Q24H [facility] Rx#:[id number] Norepinephrine 4 mg In 77.434 Sodium Chloride 0.9% 250 ml @ 0.05 MCG/KG/MIN 19. 01 mls/hr IV .[id number] [facility] Rx#:[id number] Potassium Chloride 20 meq 50 In Water For Injection 1 100ml.bag @ 50 mls/hr IVPB Q2H [facility] Rx#: [id number] Propofol 1,000 mg In 154.257 96.163 100 Empty Bag 1 bag @ Titrate IV .Q0M [facility] Rx#: [id number] Sodium Chloride 0.9% 1, 50 000 ml @ 20 mls/hr IV . Q24H [facility] Rx#:[id number] Output: Urine 1935 2825 200 Other: Voiding Method Indwelling Catheter Indwelling Catheter ABP, PAP, CO, CI - Last Documented Arterial Blood Pressure 106/71 - Exam Intubated, comfortable likely distress. Sedated on propofol which is running at 30 g per KG per minute. Head exam was generally normal. There was no scleral icterus or corneal arcus. Mucous membranes were moist. Neck was supple and with jugular venous distension, without thyromegaly, or carotid bruits. Carotids were easily palpable bilaterally. There was no adenopathy. There is positive JVDs at 30 bed elevation. There is no goiter or neck masses. Lungs sounds are diminished in lung bases along with some bibasilar crackles. No wheezes or rhonchi. Heart sounds are irregular, positive S1-S2 and there is a systolic ejection murmur grade 3/6 heard over the left lateral sternal border and apex. This is radiating to the neck. Abdominal exam revealed normal bowel sounds. The abdomen was soft, non-tender, and without masses, organomegaly, or appreciable enlargement of the abdominal aorta. Extremities revealed +1-2 pitting edema. No cyanosis. No clubbing. Some superficial ulceration. No open wounds or sores. No cellulitis. Neurologically the patient is was sedated. He can arouse from sedation easily upon stimulation. Is moving all 4 extremities upon Nicole stimulation. Pupils are equal and reactive to light. Examination of the skin revealed no evidence of significant rashes, suspicious appearing nevi or other concerning lesions. - Labs CBC & Chem 7: 03/03/19 03:20 03/03/19 03:20 Labs: Abnormal Lab Results - Last 24 Hours (Table) 03/02/19 03/02/19 03/03/19 Range/Units 12:14 19:18 00:01 Lymphocytes # (1.0-4.8) k/uL ABG pH (7.35-7.45) ABG pO2 (83-108) mmHg ABG HCO3 (21-25) mmol/L ABG Total CO2 (19-24) mmol/L ABG O2 Saturation (94-97) % BUN (9-20) mg/dL Creatinine (0.66-1.25) mg/dL Glucose (74-99) mg/dL POC Glucose (mg/dL) 101 H 107 H 174 H (75-99) mg/dL Calcium (8.4-10.2) mg/dL 03/03/19 03/03/19 03/03/19 Range/Units 03:20 03:20 04:50 Lymphocytes # 0.8 L (1.0-4.8) k/uL ABG pH 7.47 H (7.35-7.45) ABG pO2 111 H (83-108) mmHg ABG HCO3 32 H (21-25) mmol/L ABG Total CO2 33 H (19-24) mmol/L ABG O2 Saturation 99.0 H (94-97) % BUN 31 H (9-20) mg/dL Creatinine 1.26 H (0.66-1.25) mg/dL Glucose 115 H (74-99) mg/dL POC Glucose (mg/dL) (75-99) mg/dL Calcium 8.1 L (8.4-10.2) mg/dL 03/03/19 Range/Units 06:17 Lymphocytes # (1.0-4.8) k/uL ABG pH (7.35-7.45) ABG pO2 (83-108) mmHg ABG HCO3 (21-25) mmol/L ABG Total CO2 (19-24) mmol/L ABG O2 Saturation (94-97) % BUN (9-20) mg/dL Creatinine (0.66-1.25) mg/dL Glucose (74-99) mg/dL POC Glucose (mg/dL) 114 H (75-99) mg/dL Calcium (8.4-10.2) mg/dL Microbiology - Last 24 Hours (Table) 03/01/19 17:57 Urine Culture - Final Urine,Voided 03/01/19 20:42 Gram Stain - Preliminary Sputum Sputum Culture - Preliminary 03/01/19 19:04 Blood Culture - Preliminary Blood No Growth after 24 hours Assessment and Plan Plan: 1 acute hypoxic respiratory failure secondary to CHF/pulmonary edema. Patient is currently intubated on a mechanical ventilator. 2 CHF with diastolic heart failure based on a previous echocardiogram from 2017. Consider underlying valvular heart disease including the possibility of aortic stenosis as the patient has a harsh murmur heard on examination on today's evaluation. the echocardiogram preliminary report showed evidence of aortic stenosis that is severe and the final report is still pending for now. Meanwhile the patient is currently on a combination of Lasix drip and norepinephrine infusion for blood pressure support as is being diuresis. His chest x-ray still showing acute pulmonary edema, infection is doubtful 3 abnormal troponin, consider a non-ST segment elevation myocardial infarction versus troponin leak related to decompensated heart failure 4 acute lactic acidosis secondary to above, recovered 5 chronic atrial fibrillation rate is controlled and the patient is on long-term anticoagulation with Eliquis, currently also on a Cardizem drip at 10 mg an hour for rate control 6 lower extremity edema secondary to become stated heart failure 7 hypotension requiring pressors, improved and the patient is currently off pressors maintaining his own blood pressure. 8 CVA history of 9 seizure history currently on Keppra 10 hypertension 11 history of prostate cancer post radiation therapy 12 hyperlipidemia 13 acute kidney injury secondary to above, improving Plan Continue vent support and necessity ventilator changes were done. The patient's FiO2 can be gradually weaned down. drop down the FiO2 down to 40% and later on the PEEP down to 10 if he is saturation allows in the remains above 92%. Continue IV Lasix drip at 10 mg an hour. The patient is also on norepinephrine infusion for blood pressure support. Monitor blood pressure and urine output and creatinine and electrolytes Echocardiogramfinal report is pending Keep the patient on propofol for sedation IV fluids to KVO IV Protonix Empiric antibiotic coverage with IV cefepime Resume Eliquis for anticoagulation as the patient is in chronic atrial fibrilla tion continue Keppra initiate enteral feeding for nutritional support. condition is critical. We'll continue to follow. Biaxin patient is to gradually wean off the Cardizem and use a combination of norepinephrine infusion for blood pressure support and continue with diuresis. Awaiting final report on the echocardiogram. Condition is critical. We'll continue to follow. Evaluation was done and more than 30 minutes. Time with Patient: Greater than 30
--- NOTE | 2019-03-03 10:57 | PN ---
PROGRESS NOTE This patient was brought to the hospital with acute pulmonary edema. Patient's echocardiogram is suggestive of severe aortic stenosis. Patient remains intubated. He has been diuresing fairly well. Patient's heart rate is 120-130 per minute. First and second heart sounds are normal. There is ejection systolic murmur noted at the left sternal border. Lungs reveal bilateral scattered rhonchi. Arterial blood gases shows pH is 7.47, pCO2 is 43, PO2 is 111. Patient's urine output is good. Chest x-ray shows improvement in the heart failure. Patient's creatinine is 1.26. We will increase the dose of Cardizem drip to 10 mg/hour to control the rate and give him 1 dose of IV Lanoxin. Once the patient's blood pressure is stable, we will add a small dose of beta blanquita. MMJAH / ELOISEN: [id number] /
[2019-03-03 12:24] LABS: Glucose,Whole Blood 133 mg/dL (75-99)
--- NOTE | 2019-03-03 13:00 | ECHOF ---
Referral Reason:chf MEASUREMENTS -------- HEIGHT: 175.3 cm WEIGHT: 109.3 kg BP: 105/74 IVSd: 1.7 cm (0.6 - 1.1) LVIDd: 3.6 cm (3.9 - 5.3) LVPWd: 2.5 cm (0.6 - 1.1) IVSs: 2.4 cm LVIDs: 2.5 cm LVPWs: 2.7 cm Ao Diam: 2.7 cm (2.0 - 3.7) AV Cusp: 0.7 cm (1.5 - 2.6) AV maxP.97 mmHg AV meanP.74 mmHg RAP: 10.00 mmHg RVSP: 67.72 mmHg FINDINGS -------- Atrial fibrillation. This was a technically difficult study with suboptimal apical views. Pt. on a vent. The left ventricular size is normal. There is severe concentric left ventricular hypertrophy. Ove rall left ventricular systolic function is low-normal with, an EF between 50 - 55 %. Left ventricul ar fillimg pressure cannot be estimated due to Atrial fibrillation. The RV was not well visualized. The left atrium is markedly dilated. The right atrium is moderately enlarged. 5.0mg of Lumason was utilized for enhancement of images Interatrial and interventricular septum intact. There is no evidence of aortic regurgitation. Moderate to severe aortic stenosis with peak/mean pre ssure gradient of 50.97mmHg / 28.74mmHg, the aortic valve area by continuity equation is 0.5cm. Pe ak/mean gradient across the Aortic Valve is 50.97mmHg / 28.74mmHg. Moderate mitral annular calcification present. Esbjbubt-fj-jbrcco mitral regurgitation is present. Moderate to severe tricuspid regurgitation present. There is moderate to severe pulmonary hypertens ion. The right ventricular systolic pressure, as measured by Doppler, is 67.72mmHg. The pulmonic valve was not well visualized. There is no pulmonic regurgitation present. The aortic root size is normal. IVC Not well visulized. There is no pericardial effusion. CONCLUSIONS -------- 1. Atrial fibrillation. 2. This was a technically difficult study with suboptimal apical views. 3. Pt. on a vent. 4. The left ventricular size is normal. 5. There is severe concentric left ventricular hypertrophy. 6. Overall left ventricular systolic function is low-normal with, an EF between 50 - 55 %. 7. Left ventricular fillimg pressure cannot be estimated due to Atrial fibrillation. 8. The RV was not well visualized. 9. The left atrium is markedly dilated. 10. The right atrium is moderately enlarged. 11. 5.0mg of Lumason was utilized for enhancement of images 12. Interatrial and interventricular septum intact. 13. There is no evidence of aortic regurgitation. 14. Moderate to severe aortic stenosis with peak/mean pressure gradient of 50.97mmHg / 28.74mmHg, the aortic valve area by continuity equation is 0.5cm. 15. Peak/mean gradient across the Aortic Valve is 50.97mmHg / 28.74mmHg. 16. Moderate mitral annular calcification present. 17. Kvaqjebg-[id number]-zsknyj mitral regurgitation is present. 18. Moderate to severe tricuspid regurgitation present. 19. There is moderate to severe pulmonary hypertension. 20. The right ventricular systolic pressure, as measured by Doppler, is 67.72mmHg. 21. The pulmonic valve was not well visualized. 22. There is no pulmonic regurgitation present. 23. The aortic root size is normal. 24. IVC Not well visulized. 25. There is no pericardial effusion. ANTHROPOLOGICAL LINGUIST: Nimo Guzman RDCS
--- NOTE | 2019-03-03 13:21 | P.HPIM ---
History of Present Illness H&P Date: 03/02/19 this a pleasant 79-year-old white male admitted through the emergendepartment into the ICU for acute respiratory failure and pulmonary edema he is currently on a ventilator with IV sedation. Apparently had a few day history of shortness of breathing. Review of Systems ROS unobtainable: due to endotracheal tube, due to mental status Past Medical History Past Medical History: Atrial Fibrillation, Heart Failure, CVA/TIA, Hyperlipidemia, Hypertension Additional Past Medical History / Comment(s): prostate cancer 2008, radiation treatment, last stroke was October 2014 and 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 History of Any Multi-Drug Resistant Organisms: None Reported Additional Past Surgical History / Comment(s): colonoscopy x3, Past Anesthesia/Blood Transfusion Reactions: No Reported Reaction Past Psychological History: No Psychological Hx Reported Smoking Status: Unknown if ever smoked Past Alcohol Use History: None Reported Past Drug Use History: None Reported - Past Family History Sister(s) Family Medical History: Diabetes Mellitus, Myocardial Infarction (MT) Additional Family Medical History / Comment(s): sister from an [place] Mother Family Medical History: No Reported History Additional Family Medical History / Comment(s): multiple sclerosis Son(s) Family Medical History: Hypertension Father Additional Family Medical History / Comment(s): ETOH abuse Medications and Allergies Home Medications Medication Instructions Recorded Confirmed Type Simvastatin [Zocor] 40 mg PO HS 10/23/14 03/01/19 History Apixaban [Eliquis] 5 mg PO BID tab 11/09/14 03/01/19 Rx Metoprolol Succinate [Toprol XL] 100 mg PO HS 03/06/15 03/01/19 History Cholecalciferol [Vitamin D3 (25 1,000 unit PO DAILY 11/05/15 03/01/19 History Mcg = 1000 Iu)] Multivitamins, Thera [Multivitamin 1 tab PO DAILY 11/05/15 03/01/19 History (formulary)] amLODIPine BESYLATE/BENAZEPRIL 1 cap PO DAILY 11/05/15 03/01/19 History [amLODIPine BESYLATE/BENAZEPRIL 5-20 MG] Aspirin EC [Ecotrin Low Dose] 81 mg PO DAILY 03/20/16 03/01/19 History levETIRAcetam [Keppra] 500 mg PO Q12HR #60 tab 03/24/16 03/01/19 Rx Furosemide [Lasix] 40 mg PO DAILY #30 tablet 02/12/17 03/01/19 Rx Spironolactone [Aldactone] 25 mg PO HS 03/01/19 03/01/19 History Allergies Allergy/AdvReac Type Severity Reaction Status Date / Time No Known Allergies Allergy Verified 03/01/19 19:56 Physical Exam Osteopathic Statement: *. No significant issues noted on an osteopathic structural exam other than those noted in the History and Physical/Consult. Vitals: Vital Signs Temp Pulse Resp BP Pulse Ox 03/03/19 13:00 93 18 116/77 99 03/03/19 12:45 100 18 118/75 99 03/03/19 12:30 95 18 112/80 99 03/03/19 12:15 99 18 111/79 99 03/03/19 12:00 97.7 F 118 H 18 98/78 99 03/03/19 11:45 121 H 18 122/98 99 03/03/19 11:30 103 H 18 122/98 99 03/03/19 11:15 108 H 18 108/64 99 03/03/19 11:00 108 H 18 114/84 99 03/03/19 10:45 115 H 18 123/84 99 03/03/19 10:30 126 H 18 148/107 100 03/03/19 10:15 137 H 18 122/89 100 03/03/19 10:00 122 H 18 112/98 99 03/03/19 09:45 110 H 18 118/85 100 03/03/19 09:41 116 H 03/03/19 09:31 114 H 03/03/19 09:30 124 H 18 121/101 99 03/03/19 09:15 117 H 18 100/78 99 03/03/19 09:00 116 H 18 103/78 99 03/03/19 08:45 121 H 18 126/91 99 03/03/19 08:30 126 H 18 128/92 99 03/03/19 08:15 112 H 18 128/87 99 03/03/19 08:00 97.9 F 125 H 18 132/74 99 03/03/19 07:45 129 H 18 117/94 99 03/03/19 07:30 129 H 18 120/81 99 03/03/19 07:15 121 H 18 99 03/03/19 07:00 130 H 18 99 03/03/19 06:45 122 H 18 120/91 99 03/03/19 06:30 131 H 18 99 03/03/19 06:15 128 H 19 100 03/03/19 06:00 137 H 18 100 03/03/19 05:45 135 H 18 100 03/03/19 05:30 125 H 18 99 03/03/19 05:15 134 H 100 03/03/19 05:00 128 H 18 100 03/03/19 04:15 122 H 18 100 03/03/19 04:00 114 H 18 115/92 100 03/03/19 03:58 112 H 03/03/19 03:45 105/62 03/03/19 03:40 122 H 03/03/19 03:30 90/72 03/03/19 03:00 115 H 18 100 03/03/19 02:00 112 H 18 115/69 99 03/03/19 01:00 115 H 18 99 03/03/19 00:30 116 H 18 99 03/03/19 00:15 110 H 18 100 03/03/19 00:00 97.3 F L 111 H 18 100 03/02/19 23:52 110 H 03/02/19 23:45 104 H 18 100 03/02/19 23:43 112 H 03/02/19 23:30 112 H 18 99 19 23:15 118 H 18 99 03/02/19 23:00 110 H 18 99 19 22:45 111 H 18 99 19 22:30 109 H 18 99 18/19 22:15 110 H 18 99 19 22:00 111 H 18 99 03/02/19 21:45 112 H 18 99 03/02/19 21:30 113 H 18 98 1819 21:15 109 H 18 99 19 21:00 108 H 18 99 18/19 20:45 108 H 18 99 19 20:30 107 H 18 99 18/19 20:26 115 H 19 20:15 103 H 100 03/02/19 20:00 98.1 F 115 H 18 122/75 99 03/02/19 19:45 110 H 18 99 03/02/19 19:30 101 H 18 100 03/02/19 19:15 103 H 18 99 03/02/19 19:00 109 H 18 136/103 99 03/02/19 18:00 107 H 18 136/103 99 03/02/19 17:00 117 H 18 136/103 99 03/02/19 16:00 98.0 F 104 H 18 136/103 99 03/02/19 15:41 98 03/02/19 15:28 96 03/02/19 15:00 95 18 136/103 99 03/02/19 14:00 100 18 93/72 98 Intake and Output 03/02/19 03/03/19 03/03/19 22:59 06:59 14:59 Intake Total 381.655 477.736 651.296 Output Total 1825 1800 1180 Balance -1443.345 -1322.264 -528.704 Intake: IV 160 240 180 0.9 Normal Saline 160 240 180 Intake, IV Titration 221.655 237.736 471.296 Amount Cefepime 2 gm In Sodium 100 100 Chloride 0.9% 100 ml @ 200 mls/hr IVPB Q12HR [facility] Rx#:[id number] Diltiazem 125 mg In 29.417 Sodium Chloride 0.9% 100 ml @ 10 MG/HR 10 mls/hr IV .[id number] [facility] Rx#: [id number] Furosemide 100 mg In 86.167 100 Sodium Chloride 0.9% 90 ml @ 10 MG/HR 10 mls/hr IV .Q10H [facility] Rx#: [id number] Norepinephrine 32 mg In 35.488 41.573 41.879 Sodium Chloride 0.9% 218 ml @ 0.05 MCG/KG/MIN 2. 564 mls/hr IV .Q24H [facility] Rx#:[id number] Potassium Chloride 20 meq 200 In Water For Injection 1 100ml.bag @ 50 mls/hr IVPB Q2H [facility] Rx#: [id number] Propofol 1,000 mg In 96.163 100 Empty Bag 1 bag @ Titrate IV .Q0M [facility] Rx#: [id number] Output: Urine 1825 1800 1180 Other: Voiding Method Indwelling Catheter Indwelling Catheter Indwelling Catheter Weight 108.1 kg ABP, PAP, CO, CI - Last 8 Hours Arterial Blood Pressure 102/65 Arterial Blood Pressure 101/63 Arterial Blood Pressure 97/66 Arterial Blood Pressure 99/64 Arterial Blood Pressure 101/68 Arterial Blood Pressure 102/71 Arterial Blood Pressure 120/77 Arterial Blood Pressure 88/60 Arterial Blood Pressure 105/68 Arterial Blood Pressure 101/70 Arterial Blood Pressure 115/76 Arterial Blood Pressure 114/76 Arterial Blood Pressure 114/73 Arterial Blood Pressure 111/71 Arterial Blood Pressure 97/63 Arterial Blood Pressure 94/60 Arterial Blood Pressure 94/64 Arterial Blood Pressure 98/64 Arterial Blood Pressure 107/68 Arterial Blood Pressure 109/70 Arterial Blood Pressure 114/74 Arterial Blood Pressure 106/71 Arterial Blood Pressure 97/66 Arterial Blood Pressure 115/74 Arterial Blood Pressure 132/90 Arterial Blood Pressure 110/69 Arterial Blood Pressure 77/54 Arterial Blood Pressure 93/64 Arterial Blood Pressure 105/72 Arterial Blood Pressure 96/63 Arterial Blood Pressure 74/53 GENERAL: This is a -79 year-old in apparent distress at the time of examination. on ventilator assistance. HEENT: Head is atraumatic, normocephalic. Pupils are equal, round, and reactive to light. Sclerae anicteric. Conjunctivae are clear. Mucus membranes of the mouth are moist. Neck is supple. RESPIRATORY: scattered rhonchi with ET tube and ventilator assistan. CARDIOVASCULAR: irregular rate and rhythm. systolic murmur auscultated. No JVD noted. GASTROINTESTINAL: No distention noted. Abdomen soft and round. Normal active bowel sounds auscultated x 4 quadrants. No pain or tenderness noted upon palpation. INTEGUMENTARY: No cyanosis. No jaundice. No rashes noted. No cellulitis noted. EXTREMITIES: 2+ peripheral pulses. No evidence of peripheral edema. No calf tenderness noted. NEUROLOGIC: Cranial nerves II-XII intact. PSYCHIATRIC: sedated. Results CBC & Chem 7: 03/03/19 03:20 03/03/19 03:20 Labs: Abnormal Lab Results - Last 24 Hours (Table) 03/02/19 03/03/19 03/03/19 Range/Units 19:18 00:01 03:20 Lymphocytes # 0.8 L (1.0-4.8) k/uL ABG pH (7.35-7.45) ABG pO2 (83-108) mmHg ABG HCO3 (21-25) mmol/L ABG Total CO2 (19-24) mmol/L ABG O2 Saturation (94-97) % BUN (9-20) mg/dL Creatinine (0.66-1.25) mg/dL Glucose (74-99) mg/dL POC Glucose (mg/dL) 107 H 174 H (75-99) mg/dL Calcium (8.4-10.2) mg/dL 03/03/19 03/03/19 03/03/19 Range/Units 03:20 04:50 06:17 Lymphocytes # (1.0-4.8) k/uL ABG pH 7.47 H (7.35-7.45) ABG pO2 111 H (83-108) mmHg ABG HCO3 32 H (21-25) mmol/L ABG Total CO2 33 H (19-24) mmol/L ABG O2 Saturation 99.0 H (94-97) % BUN 31 H (9-20) mg/dL Creatinine 1.26 H (0.66-1.25) mg/dL Glucose 115 H (74-99) mg/dL POC Glucose (mg/dL) 114 H (75-99) mg/dL Calcium 8.1 L (8.4-10.2) mg/dL 03/03/19 Range/Units 12:12 Lymphocytes # (1.0-4.8) k/uL ABG pH (7.35-7.45) ABG pO2 (83-108) mmHg ABG HCO3 (21-25) mmol/L ABG Total CO2 (19-24) mmol/L ABG O2 Saturation (94-97) % BUN (9-20) mg/dL Creatinine (0.66-1.25) mg/dL Glucose (74-99) mg/dL POC Glucose (mg/dL) 133 H (75-99) mg/dL Calcium (8.4-10.2) mg/dL Microbiology - Last 24 Hours (Table) 03/01/19 17:57 Urine Culture - Final Urine,Voided 03/01/19 20:42 Gram Stain - Preliminary Sputum Sputum Culture - Preliminary 03/01/19 19:04 Blood Culture - Preliminary Blood No Growth after 24 hours Assessment and Plan (1) Ventilator dependent Current Visit: Yes Status: Acute Code(s): Z99.11 - DEPENDENCE ON RESPIRATOR [VENTILATOR] STATUS SNOMED Code(s): 203620558 (2) Acute respiratory failure Current Visit: No Status: Acute Code(s): J96.00 - ACUTE RESPIRATORY FAILURE, UNSP W HYPOXIA OR HYPERCAPNIA SNOMED Code(s): 20046750 (3) Atrial fibrillation Current Visit: No Status: Acute Code(s): I48.91 - UNSPECIFIED ATRIAL FIBRILLATION SNOMED Code(s): 96092139 (4) CVA (cerebral vascular accident) Current Visit: No Status: Acute Code(s): I63.9 - CEREBRAL INFARCTION, UNSPECIFIED SNOMED Code(s): 235426100 (5) Chronic a-fib Current Visit: No Status: Acute Code(s): I48.2 - CHRONIC ATRIAL FIBRILLATION * DO NOT USE * SNOMED Code(s): 257580159 (6) Diastolic CHF, acute on chronic Current Visit: No Status: Acute Code(s): I50.33 - ACUTE ON CHRONIC DIASTOLIC (CONGESTIVE) HEART FAILURE SNOMED Code(s): 950483471 (7) HTN (hypertension) Current Visit: No Status: Acute Code(s): I10 - ESSENTIAL (PRIMARY) HYPERTENSION SNOMED Code(s): 95281297 (8) Hyperlipemia Current Visit: No Status: Acute Code(s): E78.5 - HYPERLIPIDEMIA, UNSPECIFIED SNOMED Code(s): 44755653 (9) Hypoxia Current Visit: No Status: Acute Code(s): R09.02 - HYPOXEMIA SNOMED Code(s): 108465653 Plan: patient is to remain on ventilator in the intensive care unit.. With maximum assistance. Will ask cardiology to consult regarding elevated troponin. Prognosis poor.
--- NOTE | 2019-03-03 16:22 | P.PN ---
Subjective Progress Note Date: 03/03/19 this a pleasant 79-year-old white male admitted through the emergendepartment into the ICU for acute respiratory failure and pulmonary edema he is currently on a ventilator with IV sedation. Apparently had a few day history of shortness of breathing. 1918 remains ventilator dependent with FiO2 50%/+12 of PEEP. chest x-ray reporting small pleural effusions with bibasilar atelectasis/consolidation. sputum culture pending.Continues on Diprovan, Cardizem, Lasix and Levophed drips.telemetry atrial fib.Cardizem dose increased as per cardiology with a dose of digoxin.creatinine 1.26.Echo reporting the low-normal LV function, EF 50-55%, moderate to severe aortic stenosis, moderate to severe mitral and tricuspid regurgitation, moderate to severe pulmonary hypertension.afebrile. Objective - Vital Signs Vital signs: Vital Signs Temp 97.7 F 03/03/19 12:00 Pulse 87 03/03/19 14:00 Resp 18 03/03/19 14:00 BP 112/73 03/03/19 14:00 Pulse Ox 100 03/03/19 14:00 Intake & Output 03/02/19 03/03/19 03/03/19 18:59 06:59 18:59 Intake Total 617.530 779.391 858.939 Output Total 1935 2825 1330 Balance -1317.470 -2045.609 -471.061 Weight 108.1 kg 108.1 kg Intake: IV 220 320 240 0.9 Normal Saline 220 320 240 Intake, IV Titration 397.530 459.391 618.939 Amount Cefepime 2 gm In Sodium 100 Chloride 0.9% 100 ml @ 200 mls/hr IVPB [facility] Rx#:[id number] Cefepime 2 gm In Sodium 100 100 Chloride 0.9% 100 ml @ 200 mls/hr IVPB Q12HR [facility] Rx#:[id number] Diltiazem 125 mg In 29.417 Sodium Chloride 0.9% 100 ml @ 10 MG/HR 10 mls/hr IV .[id number] [facility] Rx#: [id number] Furosemide 100 mg In 186.167 75 Sodium Chloride 0.9% 90 ml @ 10 MG/HR 10 mls/hr IV .Q10H [facility] Rx#: [id number] Norepinephrine 32 mg In 15.839 77.061 41.879 Sodium Chloride 0.9% 218 ml @ 0.05 MCG/KG/MIN 2. 564 mls/hr IV .Q24H [facility] Rx#:[id number] Norepinephrine 4 mg In 77.434 Sodium Chloride 0.9% 250 ml @ 0.05 MCG/KG/MIN 19. 01 mls/hr IV .[id number] [facility] Rx#:[id number] Potassium Chloride 20 meq 200 In Water For Injection 1 100ml.bag @ 50 mls/hr IVPB Q2H [facility] Rx#: [id number] Propofol 1,000 mg In 154.257 96.163 172.643 Empty Bag 1 bag @ Titrate IV .Q0M [facility] Rx#: [id number] Sodium Chloride 0.9% 1, 50 000 ml @ 20 mls/hr IV . Q24H [facility] Rx#:[id number] Output: Urine 1935 2825 1330 Other: Voiding Method Indwelling Catheter Indwelling Catheter Indwelling Catheter ABP, PAP, CO, CI - Last Documented Arterial Blood Pressure 108/67 - Exam GENERAL: sitting up in bed,calm,sedated and on mechanical ventilator-dependent. HEENT: Head is atraumatic, normocephalic. Pupils are equal, round, and reactive to light. Sclerae anicteric. Conjunctivae are clear.oral mucosa dry.Neck is supple. RESPIRATORY: scattered rhonchi CARDIOVASCULAR: irregular rate and rhythm. systolic murmur auscultated. No JVD noted. GASTROINTESTINAL: No distention noted. Abdomen soft and round. Normal active bowel sounds auscultated x 4 quadrants. No pain or tenderness noted upon palpation. INTEGUMENTARY: No cyanosis. No jaundice. No rashes noted. No cellulitis noted. EXTREMITIES: 2+ peripheral pulses. No evidence of peripheral edema. No calf tenderness noted. NEUROLOGIC: unable to assess, sedated and on mechanical ventilation Microbiology 03/01/19 17:57 Urine,Voided Urine Culture - Final 03/01/19 20:42 Sputum Gram Stain - Preliminary 03/01/19 20:42 Sputum Sputum Culture - Preliminary 03/01/19 19:04 Blood Blood Culture - Preliminary No Growth after 24 hours - Labs CBC & Chem 7: 03/03/19 03:20 03/03/19 03:20 Labs: Abnormal Lab Results - Last 24 Hours (Table) 03/02/19 03/03/19 03/03/19 Range/Units 19:18 00:01 03:20 Lymphocytes # 0.8 L (1.0-4.8) k/uL ABG pH (7.35-7.45) ABG pO2 (83-108) mmHg ABG HCO3 (21-25) mmol/L ABG Total CO2 (19-24) mmol/L ABG O2 Saturation (94-97) % BUN (9-20) mg/dL Creatinine (0.66-1.25) mg/dL Glucose (74-99) mg/dL POC Glucose (mg/dL) 107 H 174 H (75-99) mg/dL Calcium (8.4-10.2) mg/dL 03/03/19 03/03/19 03/03/19 Range/Units 03:20 04:50 06:17 Lymphocytes # (1.0-4.8) k/uL ABG pH 7.47 H (7.35-7.45) ABG pO2 111 H (83-108) mmHg ABG HCO3 32 H (21-25) mmol/L ABG Total CO2 33 H (19-24) mmol/L ABG O2 Saturation 99.0 H (94-97) % BUN 31 H (9-20) mg/dL Creatinine 1.26 H (0.66-1.25) mg/dL Glucose 115 H (74-99) mg/dL POC Glucose (mg/dL) 114 H (75-99) mg/dL Calcium 8.1 L (8.4-10.2) mg/dL 03/03/19 Range/Units 12:12 Lymphocytes # (1.0-4.8) k/uL ABG pH (7.35-7.45) ABG pO2 (83-108) mmHg ABG HCO3 (21-25) mmol/L ABG Total CO2 (19-24) mmol/L ABG O2 Saturation (94-97) % BUN (9-20) mg/dL Creatinine (0.66-1.25) mg/dL Glucose (74-99) mg/dL POC Glucose (mg/dL) 133 H (75-99) mg/dL Calcium (8.4-10.2) mg/dL Microbiology - Last 24 Hours (Table) 03/01/19 17:57 Urine Culture - Final Urine,Voided 03/01/19 20:42 Gram Stain - Preliminary Sputum Sputum Culture - Preliminary 03/01/19 19:04 Blood Culture - Preliminary Blood No Growth after 24 hours Assessment and Plan Assessment: (1) Ventilator dependent Current Visit: Yes Status: Acute Code(s): Z99.11 - DEPENDENCE ON RESPIRATOR [VENTILATOR] STATUS SNOMED Code(s): 023894522 (2) Acute respiratory failure Current Visit: No Status: Acute Code(s): J96.00 - ACUTE RESPIRATORY FAILURE, UNSP W HYPOXIA OR HYPERCAPNIA SNOMED Code(s): 01560818 (3) Atrial fibrillation Current Visit: No Status: Acute Code(s): I48.91 - UNSPECIFIED ATRIAL FIBRILLATION SNOMED Code(s): 63749164 (4) CVA (cerebral vascular accident) Current Visit: No Status: Acute Code(s): I63.9 - CEREBRAL INFARCTION, UNSPECIFIED SNOMED Code(s): 361923532 (5) Chronic a-fib Current Visit: No Status: Acute Code(s): I48.2 - CHRONIC ATRIAL FIBRILLATION * DO NOT USE * SNOMED Code(s): 650104565 (6) Diastolic CHF, acute on chronic,EF 50-55% Current Visit: No Status: Acute Code(s): I50.33 - ACUTE ON CHRONIC DIASTOLIC (CONGESTIVE) HEART FAILURE SNOMED Code(s): 828415415 (7) HTN (hypertension) Current Visit: No Status: Acute Code(s): I10 - ESSENTIAL (PRIMARY) HYPERTENSION SNOMED Code(s): 67011871 (8) Hyperlipemia Current Visit: No Status: Acute Code(s): E78.5 - HYPERLIPIDEMIA, UNSPECIFIED SNOMED Code(s): 70349601 (9) Hypoxia Current Visit: No Status: Acute Code(s): R09.02 - HYPOXEMIA SNOMED Code(s): 842294521 (10) moderate to severe aortic stenosis (11) moderate to severe mitral and tricuspid regurgitation (12) moderate to severe pulmonary hypertension (13) elevated troponins, possible acute non-STEMI (14) hypotension, pressor dependent plan: Continue on current medication regime ,monitoring and symptomatic treatment. Anticoagulated on Eliquis.Empiric antibiotics. Follow closely with cardiologyand pulmonary. Prognosis guarded given multiple complex medical issues. The impression and plan of care has been dictated as directed. : I performed a history and examination of this patient, discussed the same with the dictator. I agree with the dictator's note ,documented as a scribe. Any additional findings or plans will be noted.
[2019-03-03 18:45] LABS: Glucose,Whole Blood 144 mg/dL (75-99)
[2019-03-03] MEDS: NOREPINEPHRINE 32 MG in SODIUM CHLORIDE 0.9% 218 ML IV SCH (18:52)
--- NOTE | 2019-03-03 19:48 | PCN ---
PROCEDURE NOTE PREOPERATIVE DIAGNOSIS: Acute respiratory failure/acute pulmonary edema. POSTOPERATIVE DIAGNOSIS: Acute respiratory failure/acute pulmonary edema. PROCEDURE: Insertion of a triple-lumen catheter in the left subclavian vein. Indication: Hemodynamic monitoring/intravenous access. A time-out was completed verifying correct patient, procedure, site, positioning, and implant(s) or special equipment if applicable. The patient was placed in a dependent position appropriate for triple-lumen catheter placement based on the vein to be cannulated. The patients left shoulder was prepped and draped in sterile fashion. 1% Lidocaine was used to anesthetize the surrounding skin area. A triple-lumen 9F Cordis catheter was introduced into the left subclavian vein using Seldinger technique. The catheter was threaded smoothly over the guide wire and appropriate blood return was obtained. Each lumen of the catheter was evacuated of air and flushed with sterile saline. The catheter was then sutured in place to the skin and a sterile dressing applied. Perfusion to the extremity distal to the point of catheter insertion was checked and found to be adequate. There were no bedside complications or bleeding. MMODL / IJN: [id number] /
--- NOTE | 2019-03-03 19:48 | PCN ---
PROCEDURE NOTE ARTERIAL LINE PLACEMENT, LEFT RADIAL ARTERY: PREOPERATIVE DIAGNOSIS: Acute hypoxic respiratory failure/acute pulmonary edema. POSTOPERATIVE DIAGNOSIS: Acute hypoxic respiratory failure/acute pulmonary edema. PROCEDURE DESCRIPTION: A time-out was completed verifying correct patient, procedure, site, positioning, and implant(s) or special equipment if applicable. Dandre's test was performed to ensure adequate perfusion. The patient's left wrist was prepped and draped in sterile fashion. 1% Lidocaine was used to anesthetize the area. An 18G Arrow arterial line was introduced into the radial artery. The catheter was threaded over the guide wire and the needle was removed with appropriate pulsatile blood return. Blood loss was minimal. The catheter was then sutured in place to the skin and a sterile dressing applied. Perfusion to the extremity distal to the point of catheter insertion was checked and found to be adequate. The patient tolerated the procedure well and there were no bedside complications or bleeding. MMODL / IJN: [id number] /
[2019-03-03] MEDS: ATORVASTATIN 20 MG TAB PO SCH (21:17)
[2019-03-03] MEDS: SODIUM CHLORIDE 0.9% 1,000 ML IV SCH (22:22)
[2019-03-04 00:09] LABS: Glucose,Whole Blood 162 mg/dL (75-99)
[2019-03-04] MEDS: PROPOFOL 1,000 MG in EMPTY BAG 1 BAG IV SCH ×5 (00:13→23:56)
[2019-03-04] MEDS: IPRATROPIUM-ALBUTEROL 3 ML NEB INHALATION SCH ×7 (03:15→23:16)
[2019-03-04 05:04] LABS: ABG Base Excess 8.9 mmol/L; ABG HCO3 32 mmol/L (21-25); ABG Oxygen Saturation 96.4 % (94-97); ABG PCO2 42 mmHg (35-45); ABG PH 7.49 (7.35-7.45); ABG PO2 80 mmHg (83-108); ABG TCO2 34 mmol/L (19-24); Allen Test Performed? Yes
[2019-03-04 05:17] LABS: Calcium 8.3 mg/dL (8.4-10.2); Potassium 3.8 mmol/L (3.5-5.1)
[2019-03-04 05:19] LABS: Basophils # (A) 0.1 k/uL (0-0.2); Basophils % (A) 1 %; Eosinophils # (A) 0.1 k/uL (0-0.7); Eosinophils % (A) 1 %; HCT 52.5 % (39.0-53.0); HGB 17.1 gm/dL (13.0-17.5); Hypochromasia Slight; Lymphocytes # (A) 0.4 k/uL (1.0-4.8); Lymphocytes % (A) 3 %; MCH 29.8 pg (25.0-35.0); MCHC 32.5 g/dL (31.0-37.0); MCV 91.6 fL (80.0-100.0); Mean Platelet Volume 9.6; Monocytes % (A) 6 %; Neutrophils # (A) 13.1 k/uL (1.3-7.7); Neutrophils % (A) 88 %; Platelet Count 147 k/uL (150-450); RBC 5.73 m/uL (4.30-5.90); RDW 15.5 % (11.5-15.5)
[2019-03-04] MEDS ORDERED: Potassium Replacement Protocol 1 EACH MISC MISCELLANE PRN (05:24)
[2019-03-04] MEDS: DILTIAZEM 125 MG in SODIUM CHLORIDE 0.9% 100 ML IV SCH (05:48)
[2019-03-04] MEDS ORDERED: POTASSIUM BICARBONATE/CIT AC 20 MEQ TABLET.EFF NG-TUBE SCH ×2 (06:00→17:00)
[2019-03-04 06:21] LABS: Glucose,Whole Blood 142 mg/dL (75-99)
[2019-03-04] MEDS: levETIRAcetam 500 MG TAB PO SCH ×2 (08:38→20:23)
[2019-03-04] MEDS: METOPROLOL TARTRATE 25 MG TAB PO SCH ×2 (08:38→20:23)
[2019-03-04] MEDS: CHLORHEXIDINE GLUCONATE 15 ML CUP MUCOUS MEM SCH ×2 (08:38→20:24)
[2019-03-04] MEDS: PANTOPRAZOLE 40 MG/10 ML VIAL IV SCH (08:38)
[2019-03-04] MEDS: SPIRONOLACTONE 25 MG TAB PO SCH ×2 (08:39→20:23)
[2019-03-04] MEDS: CEFEPIME 2 GM in SODIUM CHLORIDE 0.9% 100 ML IVPB SCH ×2 (08:39→20:24)
--- NOTE | 2019-03-04 08:58 | XR ---
EXAMINATION TYPE: XR chest 1V portable DATE OF EXAM: 03/04/2019 COMPARISON: 03/03/2019 HISTORY: SOB, Follow Up FINDINGS: Indwelling tubes and catheters are unchanged. No change in bibasilar opacities. Stable appearance of the cardio-mediastinal structures at this time. Pleural effusion unchanged. IMPRESSION: 1. Stable portable chest. Clinical correlation and follow up until resolution is recommended.
[2019-03-04] MEDS: FUROSEMIDE 100 MG in SODIUM CHLORIDE 0.9% 90 ML IV SCH ×2 (09:26→23:56)
[2019-03-04 11:51] LABS: Glucose,Whole Blood 173 mg/dL (75-99)
--- NOTE | 2019-03-04 12:00 | P.PN ---
Subjective Progress Note Date: 03/04/19 79-year-old male patient who presented yesterday to the emergency department and severe respiratory distress and respiratory failure. The patient was having progressive increasing lower extremity edema over the past 3 days and was asked by his primary care physician to increase his diuretics. Unable to get any history from him at a time of his arrival to the emergency. He was in atrial fibrillation. No significant tachycardia. No reported chest pain. He is known to have congestion heart failure with diastolic heart failure and previous history of CVA and chronic A. fib in addition to hypertension and hyperlipidemia. The patient had that point was intubated as he was becoming more tachypneic and he was in overt respiratory failure and he developed severe hypoxemia. Post intubation, the patient was brought into the intensive care unit for further evaluation. Chest x-ray post intubation showed massive cardiomegaly with pulmonary edema. The initial troponin was 0.02. Lactic acid was at 9.2. Urine drug screen was negative. EKG was consistent with atrial fibrillation. His echocardiogram from 2 years ago showed diastolic heart failure with a preserved LV function and an ejection fraction of 50-55%. RV was widely dilated. RA was enlarged. There was ilxx-yw-lgqlptto mitral reg urgitation and moderate tricuspid regurgitation and mild pulmonary hypertension and evidence of aortic valve stenosis. Overnight, the patient was kept on a mechanical ventilator. Blood gases was quite abnormal at the time of his arrival to the ICU with a pH of 7.33 with a pCO2 of 52 and pO2 of 56. I put the patient on a PEEP of 12 with an FiO2 of 100% and tidal volume of 500 with a rate of 24. His current peak airway pressures around 24. His most recent blood gas showed a pH of 7.48 with a pCO2 of 36 and pO2 161. He was briefly placed on pressors and he was receiving norepinephrine infusion 0.05 mg per KG per minute. This improved his urine output. Lactic acid level is down to 1.7. His creatinine is down to 1.2. Is producing adequate amount of urine output in the order of 100 mL an hour and is currently receiving Lasix 40 mg every 6 hours. He was given a total of 2 L of IV fluid in the emergency department currently his IV fluids at KVO. Pulse ox 99%. Afebrile. He received a dose of cefepime and vancomycin. His troponin maxed at 0.157. Is on Eliquis for long-term anti coagulation. UA was abnormal and cultures are still pending for now. on 03/03/2019 the patient is being seen for a follow-up. This morning she is well sedated with propofol which is currently running at 30 mics per KG per minute. The patient is was sedated and the patient is calm and comfortable success with the mechanical ventilator. He is an assist-control mode at the rate of 18 with a tidal volume of 500 with an FiO2 of 50% and PEEP of 12. The chest x-ray still showing hepatomegaly and pulmonary edema. The blood gases from this morning showed a pH of 7.47 with a pCO2 of 43 and pO2 of 111 and this was on FiO2 of 50%. The patient's peak airway pressure is around 29. He is on a Lasix drip at 10 mg an hour and the patient is producing excellent urine output. The patient is a negative fluid balance of 3.3 L over the past 24 hours. He had to be supported by the low-fat for blood pressure support. His Levothroid is running at 0.2 g per KG commands. Cardizem drip at 10 mg an hour for rate control as the patient is in atrial fibrillation. Echocardiogram was done and it showed severe aortic stenosis, final report is still pending for now. Creatinine is improving. The patient's serum creatinine is down to 1.26. Lactic acid level is normalized. Troponin peaked at 0.157. BNP level is declining. He is afebrile. on 03/04/2019 seeing the patient for a follow-up. The patient is still respiratory failure intubated on a mechanical ventilator and acute pulmonary e danica. He was found to have severe aortic stenosis and the echocardiogram showed a EF around 50-55% and aortic valve evaluation showed that the valve area was around 0.5 cm consistent with severe AAS. The patient also had moderate to severe mitral regurgitation with a pulmonary artery pressure of 67 mmHg. For now, the patient remains intubated on a mechanical ventilator. Chest x-ray still showing pulmonary edema although there is some improvement Compared to yesterday's chest x-ray. Patient is still on a Lasix drip running at 5 mg an hour. The fluid balance is negative in the order of 2 L over the past 24 hours. He is still on norepinephrine infusion running at 0.1 g per KG pigmented minutes. Urine output is in the order of 100 mL an hour. He did have an episode of hematuria yesterday and I briefly stopped his Eliquis and aspirin. The patient was seen by cardiology who made recommendations to restart Eliquis once his hematuria recovers. On inspection, the urine output is more. For now. He is afebrile. He is having some respiratory secretions that are somewhat cloudy and thick and the studies to be cultures. He is receiving enteral feeding for nutritional support. His cardiac rhythm is still in atrial fibrillation. His blood work shows a white cell count of 15. Blood gases from today showed a pH of 7.49 with a pCO2 of 42 and pO2 of 80. Creatinine is at 1.06 with a BUN of 25. He is still on IV cefepime. There is an empiric antibiotic coverage provided to the patient. Objective - Vital Signs Vital signs: Vital Signs Temp 98.2 F 03/04/19 08:00 Pulse 70 03/04/19 11:00 Resp 19 03/04/19 11:00 BP 110/65 03/04/19 11:00 Pulse Ox 95 03/04/19 11:00 Intake & Output 03/03/19 03/04/19 03/04/19 18:59 06:59 18:59 Intake Total 1220.232 996.518 757.243 Output Total 2080 2175 720 Balance -859.768 -1178.482 37.243 Weight 108.1 kg 105.8 kg 105.8 kg Intake: IV 390 330 150 0.9 Normal Saline 390 330 150 Intake, IV Titration 820.232 466.518 607.243 Amount Cefepime 2 gm In Sodium 100 100 100 Chloride 0.9% 100 ml @ 200 mls/hr IVPB Q12HR [facility] Rx#:[id number] Diltiazem 125 mg In 29.417 95.583 51.333 Sodium Chloride 0.9% 100 ml @ 5 MG/HR 5 mls/hr IV .Q24H [facility] Rx#:[id number] Furosemide 100 mg In 75 90.833 115 Sodium Chloride 0.9% 90 ml @ 5 MG/HR 5 mls/hr IV .Q20H [facility] Rx#:[id number] Norepinephrine 32 mg In 150.422 212.812 Sodium Chloride 0.9% 218 ml @ 0.05 MCG/KG/MIN 2. 564 mls/hr IV .Q24H [facility] Rx#:[id number] Potassium Chloride 20 meq 200 In Water For Injection 1 100ml.bag @ 50 mls/hr IVPB Q2H [facility] Rx#: [id number] Propofol 1,000 mg In 265.393 180.102 128.098 Empty Bag 1 bag @ Titrate IV .Q0M [facility] Rx#: [id number] Tube Feeding 10 140 Other 60 Output: Urine 2080 2175 720 Other: Voiding Method Indwelling Catheter Indwelling Catheter Indwelling Catheter ABP, PAP, CO, CI - Last Documented Arterial Blood Pressure 108/64 - Exam Intubated, comfortable likely distress. Sedated on propofol which is running at 30 g per KG per minute. Head exam was generally normal. There was no scleral icterus or corneal arcus. Mucous membranes were moist. Neck was supple and with jugular venous distension, without thyromegaly, or carotid bruits. Carotids were easily palpable bilaterally. There was no adenopathy. There is positive JVDs at 30 bed elevation. There is no goiter or neck masses. Lungs sounds are diminished in lung bases along with some bibasilar crackles. No wheezes or rhonchi. Heart sounds are irregular, positive S1-S2 and there is a systolic ejection murmur grade 3/6 heard over the left lateral sternal border and apex. This is radiating to the neck. Abdominal exam revealed normal bowel sounds. The abdomen was soft, non-tender, and without masses, organomegaly, or appreciable enlargement of the abdominal aorta. Extremities revealed +1-2 pitting edema. edema in the lower extremities are improving as the patient is being diuresis with IV Lasix. No cyanosis. No clubbing. Some superficial ulceration. No open wounds or sores. No cellulitis. Neurologically the patient is was sedated. He can arouse from sedation easily upon stimulation. Is moving all 4 extremities upon Nicole stimulation. Pupils are equal and reactive to light.patient is to be given a sedation holiday this morning. Examination of the skin revealed no evidence of significant rashes, suspicious appearing nevi or other concerning lesions. - Labs CBC & Chem 7: 03/04/19 04:55 03/04/19 04:55 Labs: Abnormal Lab Results - Last 24 Hours (Table) 03/03/19 03/03/19 03/03/19 Range/Units 12:12 18:33 23:58 WBC (3.8-10.6) k/uL Plt Count (150-450) k/uL Neutrophils # (1.3-7.7) k/uL Lymphocytes # (1.0-4.8) k/uL ABG pH (7.35-7.45) ABG pO2 (83-108) mmHg ABG HCO3 (21-25) mmol/L ABG Total CO2 (19-24) mmol/L BUN (9-20) mg/dL Glucose (74-99) mg/dL POC Glucose (mg/dL) 133 H 144 H 162 H (75-99) mg/dL Calcium (8.4-10.2) mg/dL 03/04/19 03/04/19 03/04/19 Range/Units 04:51 04:55 04:55 WBC 15.0 H (3.8-10.6) k/uL Plt Count 147 L (150-450) k/uL Neutrophils # 13.1 H (1.3-7.7) k/uL Lymphocytes # 0.4 L (1.0-4.8) k/uL ABG pH 7.49 H (7.35-7.45) ABG pO2 80 L (83-108) mmHg ABG HCO3 32 H (21-25) mmol/L ABG Total CO2 34 H (19-24) mmol/L BUN 25 H (9-20) mg/dL Glucose 150 H (74-99) mg/dL POC Glucose (mg/dL) (75-99) mg/dL Calcium 8.3 L (8.4-10.2) mg/dL 03/04/19 Range/Units 06:08 WBC (3.8-10.6) k/uL Plt Count (150-450) k/uL Neutrophils # (1.3-7.7) k/uL Lymphocytes # (1.0-4.8) k/uL ABG pH (7.35-7.45) ABG pO2 (83-108) mmHg ABG HCO3 (21-25) mmol/L ABG Total CO2 (19-24) mmol/L BUN (9-20) mg/dL Glucose (74-99) mg/dL POC Glucose (mg/dL) 142 H (75-99) mg/dL Calcium (8.4-10.2) mg/dL Microbiology - Last 24 Hours (Table) 03/01/19 20:42 Gram Stain - Final Sputum Sputum Culture - Final 03/01/19 19:04 Blood Culture - Preliminary Blood No Growth after 48 hours Assessment and Plan Plan: 1 acute hypoxic respiratory failure secondary to CHF/pulmonary edema. Patient is currently intubated on a mechanical ventilator. 2 severe aortic stenosis with a valve area of 0.5 cm consistent with severe . The patient presented with daily, Senokot heart failure and pulmonary edema. He remains on Lasix drip. He is in a negative fluid balance. Levo fed is being used to support his blood pressure. 3 abnormal troponin, consider a non-ST segment elevation myocardial infarction versus troponin leak related to decompensated heart failure 4 acute lactic acidosis secondary to above, recovered 5 chronic atrial fibrillation rate is controlled and the patient is on long-term anticoagulation with Eliquis, the Eliquis was briefly placed on hold and the patient developed some hematuria 6 lower extremity edema secondary to become stated heart failure 7 hypotension requiring pressors 8 CVA history of 9 seizure history currently on Keppra 10 hypertension 11 history of prostate cancer post radiation therapy 12 hyperlipidemia 13 acute kidney injury secondary to above, improving, and the kidney function normalized. 14 hematuria Plan continue vent support IV Lasix drip at 5 mg an hour Levo fed for hemodynamic support Monitor renal function Watch for any hematuria Echocardiogram was noted We will resume Eliquis once immaturity or recovers Enteral feeding for nutritional support Kept on the PEEP down to 8 We need further as the patient is improving in terms of his oxygenation Sedation holiday IV cefepime Sputum Gram stain and culture We'll continue to follow Condition is critical. We'll continue to follow. Evaluation was done and more than 30 minutes. Time with Patient: Greater than 30
[2019-03-04] MEDS: INSULIN ASPART (NovoLOG) 100 UNIT/ML VIAL SQ SCH ×3 (13:57→23:57)
[2019-03-04 14:06] LABS: Glucose,Whole Blood 194 mg/dL (75-99)
[2019-03-04] MEDS: NOREPINEPHRINE 32 MG in SODIUM CHLORIDE 0.9% 218 ML IV SCH (14:20)
--- NOTE | 2019-03-04 15:26 | PN ---
PROGRESS NOTE This patient is admitted with acute pulmonary edema. Patient has evidence of severe aortic stenosis. Patient remains intubated. Patient's urine output is good. No significant dysrhythmias are noted. Patient's heart rate is 70 to 80 per minute. Blood pressure is 110/65 mmHg. First and second heart sounds are heard. There is a grade 2/6 ejection systolic murmur noted. Lungs reveal a few basal rales. Patient's creatinine is 1.06. Cardizem drip is decreased to 5 mg/ and the Lasix drip is decreased to 5 mg/hour. We will repeat the chest x-ray after the extubation. Further adjustment in the medications will be made. Patient subsequently needs to be evaluated further with cardiac catheterization and possibly consider TAVR. SHANIQUA / TO: [id number] /
--- NOTE | 2019-03-04 17:17 | P.PN ---
Subjective Progress Note Date: 03/04/19 this a pleasant 79-year-old white male admitted through the emergendepartment into the ICU for acute respiratory failure and pulmonary edema he is currently on a ventilator with IV sedation. Apparently had a few day history of shortness of breathing. 03/03/2019 remains ventilator dependent with FiO2 50%/+12 of PEEP. chest x-ray reporting small pleural effusions with bibasilar atelectasis/consolidation. sputum culture pending.Continues on Diprovan, Cardizem, Lasix and Levophed drips.telemetry atrial fib.Cardizem dose increased as per cardiology with a dose of digoxin.creatinine 1.26.Echo reporting the low-normal LV function, EF 50-55%, moderate to severe aortic stenosis, moderate to severe mitral and tricuspid regurgitation, moderate to severe pulmonary hypertension.afebrile. 03/04/2019 chest x-ray continues to report pulmonary edema. ABGs noted. remains vent dependent, FiO2 40% with PEEP down to +12. Telemetry atrial fibrillation .Continues on to prevent, Cardizem, Lasix and Levophed drips. Developed hematuria throughout the night, urology consulted, aspirin and Eliquis on hold. Tube feeds initiated during the night via OG, tolerating well with minimal to no residuals. Maintained on empiric cefepime .Afebrile. Objective - Vital Signs Vital signs: Vital Signs Temp 98.1 F 03/04/19 16:00 Pulse 84 03/04/19 16:00 Resp 19 03/04/19 16:00 BP 108/64 03/04/19 16:00 Pulse Ox 96 03/04/19 16:00 Intake & Output 03/03/19 03/04/19 03/04/19 18:59 06:59 18:59 Intake Total 1220.232 996.518 978.833 Output Total 2670 2175 1445 Balance -859.768 -1178.482 -466.167 Weight 108.1 kg 105.8 kg 105.8 kg Intake: IV 390 330 330 0.9 Normal Saline 390 330 330 Intake, IV Titration 820.232 466.518 648.833 Amount Cefepime 2 gm In Sodium 100 100 100 Chloride 0.9% 100 ml @ 200 mls/hr IVPB Q12HR [facility] Rx#:[id number] Diltiazem 125 mg In 29.417 95.583 51.333 Sodium Chloride 0.9% 100 ml @ 5 MG/HR 5 mls/hr IV .Q24H [facility] Rx#:[id number] Furosemide 100 mg In 75 90.833 115 Sodium Chloride 0.9% 90 ml @ 5 MG/HR 5 mls/hr IV .Q20H [facility] Rx#:[id number] Norepinephrine 32 mg In 150.422 254.402 Sodium Chloride 0.9% 218 ml @ 0.05 MCG/KG/MIN 2. 564 mls/hr IV .Q24H [facility] Rx#:[id number] Potassium Chloride 20 meq 200 In Water For Injection 1 100ml.bag @ 50 mls/hr IVPB Q2H [facility] Rx#: [id number] Propofol 1,000 mg In 265.393 180.102 128.098 Empty Bag 1 bag @ Titrate IV .Q0M [facility] Rx#: [id number] Tube Feeding 10 140 Other 60 Output: Urine 2080 2175 1445 Other: Voiding Method Indwelling Catheter Indwelling Catheter Indwelling Catheter ABP, PAP, CO, CI - Last Documented Arterial Blood Pressure 113/62 - Exam GENERAL: sitting up in bed,calm,sedated and on mechanical ventilator-dependent. HEENT: Head is atraumatic, normocephalic. Pupils are equal, round, and reactive to light. Sclerae anicteric. Conjunctivae are clear.oral mucosa dry.Neck is supple. RESPIRATORY: scattered rhonchi CARDIOVASCULAR: irregular rate and rhythm. systolic murmur auscultated. No JVD noted. GASTROINTESTINAL: No distention noted. Abdomen soft and round. Normal active bowel sounds auscultated x 4 quadrants. No pain or tenderness noted upon palpation. INTEGUMENTARY: No cyanosis. No jaundice. No rashes noted. No cellulitis noted. EXTREMITIES: 2+ peripheral pulses. No evidence of peripheral edema. No calf tenderness noted. NEUROLOGIC: unable to assess, sedated and on mechanical ventilation Microbiology 03/01/19 20:42 Sputum Gram Stain - Final 03/01/19 20:42 Sputum Sputum Culture - Final 03/01/19 19:04 Blood Blood Culture - Preliminary No Growth after 48 hours 03/01/19 17:57 Urine,Voided Urine Culture - Final - Labs CBC & Chem 7: 03/04/19 04:55 03/04/19 15:53 Labs: Abnormal Lab Results - Last 24 Hours (Table) 03/03/19 03/03/19 03/04/19 Range/Units 18:33 23:58 04:51 WBC (3.8-10.6) k/uL Plt Count (150-450) k/uL Neutrophils # (1.3-7.7) k/uL Lymphocytes # (1.0-4.8) k/uL ABG pH 7.49 H (7.35-7.45) ABG pO2 80 L (83-108) mmHg ABG HCO3 32 H (21-25) mmol/L ABG Total CO2 34 H (19-24) mmol/L BUN (9-20) mg/dL Glucose (74-99) mg/dL POC Glucose (mg/dL) 144 H 162 H (75-99) mg/dL Calcium (8.4-10.2) mg/dL 03/04/19 03/04/19 03/04/19 Range/Units 04:55 04:55 06:08 WBC 15.0 H (3.8-10.6) k/uL Plt Count 147 L (150-450) k/uL Neutrophils # 13.1 H (1.3-7.7) k/uL Lymphocytes # 0.4 L (1.0-4.8) k/uL ABG pH (7.35-7.45) ABG pO2 (83-108) mmHg ABG HCO3 (21-25) mmol/L ABG Total CO2 (19-24) mmol/L BUN 25 H (9-20) mg/dL Glucose 150 H (74-99) mg/dL POC Glucose (mg/dL) 142 H (75-99) mg/dL Calcium 8.3 L (8.4-10.2) mg/dL 03/04/19 03/04/19 Range/Units 11:40 13:55 WBC (3.8-10.6) k/uL Plt Count (150-450) k/uL Neutrophils # (1.3-7.7) k/uL Lymphocytes # (1.0-4.8) k/uL ABG pH (7.35-7.45) ABG pO2 (83-108) mmHg ABG HCO3 (21-25) mmol/L ABG Total CO2 (19-24) mmol/L BUN (9-20) mg/dL Glucose (74-99) mg/dL POC Glucose (mg/dL) 173 H 194 H (75-99) mg/dL Calcium (8.4-10.2) mg/dL Microbiology - Last 24 Hours (Table) 03/01/19 20:42 Gram Stain - Final Sputum Sputum Culture - Final 03/01/19 19:04 Blood Culture - Preliminary Blood No Growth after 48 hours Assessment and Plan Assessment: (1) Ventilator dependent Current Visit: Yes Status: Acute Code(s): Z99.11 - DEPENDENCE ON RESPIRATOR [VENTILATOR] STATUS SNOMED Code(s): 449316104 (2) Acute respiratory failure Current Visit: No Status: Acute Code(s): J96.00 - ACUTE RESPIRATORY FAILURE, UNSP W HYPOXIA OR HYPERCAPNIA SNOMED Code(s): 66665002 (3) Atrial fibrillation Current Visit: No Status: Acute Code(s): I48.91 - UNSPECIFIED ATRIAL FIBRILLATION SNOMED Code(s): 02517582 (4) CVA (cerebral vascular accident) Current Visit: No Status: Acute Code(s): I63.9 - CEREBRAL INFARCTION, UNSPECIFIED SNOMED Code(s): 321633195 (5) Chronic a-fib Current Visit: No Status: Acute Code(s): I48.2 - CHRONIC ATRIAL FIBRILLATION * DO NOT USE * SNOMED Code(s): 405774524 (6) Diastolic CHF, acute on chronic,EF 50-55% Current Visit: No Status: Acute Code(s): I50.33 - ACUTE ON CHRONIC DIASTOLIC (CONGESTIVE) HEART FAILURE SNOMED Code(s): 850260113 (7) HTN (hypertension) Current Visit: No Status: Acute Code(s): I10 - ESSENTIAL (PRIMARY) HYPERTENSION SNOMED Code(s): 22603237 (8) Hyperlipemia Current Visit: No Status: Acute Code(s): E78.5 - HYPERLIPIDEMIA, UNSPECIFIED SNOMED Code(s): 17242986 (9) Hypoxia Current Visit: No Status: Acute Code(s): R09.02 - HYPOXEMIA SNOMED Code(s): 342303546 (10) moderate to severe aortic stenosis (11) moderate to severe mitral and tricuspid regurgitation (12) moderate to severe pulmonary hypertension (13) elevated troponins, possible acute non-STEMI (14) hypotension, pressor dependent plan: Continue on current medication regime ,monitoring and symptomatic treatment. Aspirin, Eliquis on hold secondary to hematuria, with urology recommendations pending. Sedation holiday being discussed. Eventually further evaluation via cardiac catheterization .Prognosis guarded given multiple complex medical issues. The impression and plan of care has been dictated as directed. : I performed a history and examination of this patient, discussed the same with the dictator. I agree with the dictator's note ,documented as a scribe. Any additional findings or plans will be noted.
[2019-03-04 18:17] LABS: Glucose,Whole Blood 142 mg/dL (75-99)
[2019-03-04] MEDS: ATORVASTATIN 20 MG TAB PO SCH (20:23)
[2019-03-04] MEDS: SODIUM CHLORIDE 0.9% 1,000 ML IV SCH (23:04)
[2019-03-04 23:42] LABS: Glucose,Whole Blood 152 mg/dL (75-99)
[2019-03-05] MEDS: IPRATROPIUM-ALBUTEROL 3 ML NEB INHALATION SCH ×6 (03:08→23:15)
[2019-03-05 05:38] LABS: Basophils # (A) 0.1 k/uL (0-0.2); Basophils % (A) 1 %; Eosinophils # (A) 0.2 k/uL (0-0.7); Eosinophils % (A) 2 %; HGB 15.7 gm/dL (13.0-17.5); Hypochromasia Slight; Lymphocytes # (A) 0.6 k/uL (1.0-4.8); Lymphocytes % (A) 6 %; MCH 29.6 pg (25.0-35.0); MCV 92.4 fL (80.0-100.0); Mean Platelet Volume 10.2; Monocytes # (A) 0.7 k/uL (0-1.0); Monocytes % (A) 8 %; Neutrophils # (A) 7.8 k/uL (1.3-7.7); Neutrophils % (A) 81 %; Platelet Count 129 k/uL (150-450); RBC 5.31 m/uL (4.30-5.90); RDW 15.4 % (11.5-15.5); WBC 9.5 k/uL (3.8-10.6)
[2019-03-05 05:43] LABS: ABG HCO3 34 mmol/L (21-25); ABG PCO2 44 mmHg (35-45); ABG PH 7.49 (7.35-7.45); ABG PO2 61 mmHg (83-108); ABG TCO2 35 mmol/L (19-24); Allen Test Performed? Yes
[2019-03-05 05:48] LABS: Potassium 3.8 mmol/L (3.5-5.1)
[2019-03-05 05:56] LABS: Glucose,Whole Blood 169 mg/dL (75-99)
[2019-03-05] MEDS ORDERED: POTASSIUM BICARBONATE/CIT AC 20 MEQ TABLET.EFF NG-TUBE SCH (06:00)
--- NOTE | 2019-03-05 06:05 | XR ---
EXAMINATION TYPE: XR chest 1V portable DATE OF EXAM: 03/05/2019 HISTORY: Tube placement. REFERENCE: Previous study dated 03/05/2019. FINDINGS: The patient is ET tube and NG tube remain in place, unchanged in appearance. There is bibasilar infiltrates. There are bilateral effusions. The heart is enlarged. IMPRESSION: 1. CARDIOMEGALY. 2. BIBASILAR INFILTRATES. 3. SMALL, BILATERAL EFFUSIONS.
[2019-03-05] MEDS: INSULIN ASPART (NovoLOG) 100 UNIT/ML VIAL SQ SCH ×3 (06:14→18:34)
[2019-03-05] MEDS: DILTIAZEM 125 MG in SODIUM CHLORIDE 0.9% 100 ML IV SCH (06:14)
[2019-03-05] MEDS ORDERED: PROPOFOL 1,000 MG in EMPTY BAG 1 BAG IV SCH (08:00)
[2019-03-05] MEDS: CEFEPIME 2 GM in SODIUM CHLORIDE 0.9% 100 ML IVPB SCH ×2 (08:33→21:00)
[2019-03-05] MEDS: SPIRONOLACTONE 25 MG TAB PO SCH ×2 (08:34→20:47)
[2019-03-05] MEDS: CHLORHEXIDINE GLUCONATE 15 ML CUP MUCOUS MEM SCH (08:34)
[2019-03-05] MEDS: PANTOPRAZOLE 40 MG/10 ML VIAL IV SCH (08:34)
[2019-03-05] MEDS: METOPROLOL TARTRATE 25 MG TAB PO SCH ×2 (08:34→20:46)
[2019-03-05] MEDS: levETIRAcetam 500 MG TAB PO SCH ×2 (08:34→20:46)
--- NOTE | 2019-03-05 09:08 | P.PN ---
Subjective Progress Note Date: 03/05/19 This is a 79-year-old gentleman with history of severe aortic stenosis who was admitted to the hospital with significant pulmonary edema. Patient is still intubated. Patient is diuresing well. IV Lasix was cut back to 5 mg yesterday. He is also on IV Cardizem drip. He responds to verbal stimuli. Chest x-ray showed some infiltrates. We'll continue with IV Lasix drip and also Cardizem until patient is extubated. Subsequently open switch medication to by mouth diuretics and the Cardizem. Patient eventually may need cardiac catheterization and also possible aortic valve replacement. Objective - Vital Signs Vital signs: Vital Signs Temp 97.9 F 03/05/19 08:00 Pulse 92 03/05/19 08:15 Resp 18 03/05/19 08:15 BP 121/75 03/05/19 08:15 Pulse Ox 96 03/05/19 08:15 Intake & Output 03/04/19 03/05/19 03/05/19 18:59 06:59 18:59 Intake Total 6640.248 5184.355 148 Output Total 1570 1380 450 Balance -436.702 -230.645 -302 Weight 105.8 kg 104.2 kg Intake: IV 360 360 50 0.9 Normal Saline 360 360 50 Intake, IV Titration 709.298 291.355 Amount Cefepime 2 gm In Sodium 100 100 Chloride 0.9% 100 ml @ 200 mls/hr IVPB Q12HR [facility] Rx#:[id number] Diltiazem 125 mg In 51.333 73.667 Sodium Chloride 0.9% 100 ml @ 5 MG/HR 5 mls/hr IV .Q24H [facility] Rx#:[id number] Furosemide 100 mg In 115 65 Sodium Chloride 0.9% 90 ml @ 5 MG/HR 5 mls/hr IV .Q20H [facility] Rx#:[id number] Norepinephrine 32 mg In 254.402 Sodium Chloride 0.9% 218 ml @ 0.05 MCG/KG/MIN 2. 564 mls/hr IV .Q24H [facility] Rx#:[id number] Propofol 1,000 mg In 188.563 52.688 Empty Bag 1 bag @ Titrate IV .Q0M [facility] Rx#: [id number] Tube Feeding 34 408 68 Other 30 90 30 Output: Urine 1570 1380 450 Other: Voiding Method Indwelling Catheter Indwelling Catheter ABP, PAP, CO, CI - Last Documented Arterial Blood Pressure 110/60 - Exam GENERAL EXAM: Patient is intubated but follows commands HEENT: Normocephalic. Normal reaction of pupils, equal size, normal range of extraocular motion. No erythema or exudates in the throat. NECK: No masses, no nuchal rigidity. CHEST: No chest wall deformity. LUNGS: Diminished breath sounds at both bases HEART: S1 and S2 normal ABDOMEN: Soft SKIN: No rashes CENTRAL NERVOUS SYSTEM: No focal deficits. EXTREMITIES: No cyanosis, clubbing or edema. - Labs CBC & Chem 7: 03/05/19 05:25 03/05/19 05:25 Labs: Abnormal Lab Results - Last 24 Hours (Table) 03/04/19 03/04/19 03/04/19 Range/Units 11:40 13:55 18:05 Plt Count (150-450) k/uL Neutrophils # (1.3-7.7) k/uL Lymphocytes # (1.0-4.8) k/uL ABG pH (7.35-7.45) ABG pO2 (83-108) mmHg ABG HCO3 (21-25) mmol/L ABG Total CO2 (19-24) mmol/L ABG O2 Saturation (94-97) % Carbon Dioxide (22-30) mmol/L BUN (9-20) mg/dL Glucose (74-99) mg/dL POC Glucose (mg/dL) 173 H 194 H 142 H (75-99) mg/dL Calcium (8.4-10.2) mg/dL 03/04/19 03/05/19 03/05/19 Range/Units 23:31 05:16 05:25 Plt Count (150-450) k/uL Neutrophils # (1.3-7.7) k/uL Lymphocytes # (1.0-4.8) k/uL ABG pH 7.49 H (7.35-7.45) ABG pO2 61 L (83-108) mmHg ABG HCO3 34 H (21-25) mmol/L ABG Total CO2 35 H (19-24) mmol/L ABG O2 Saturation 92.0 L (94-97) % Carbon Dioxide 32 H (22-30) mmol/L BUN 26 H (9-20) mg/dL Glucose 164 H (74-99) mg/dL POC Glucose (mg/dL) 152 H (75-99) mg/dL Calcium 8.0 L (8.4-10.2) mg/dL 03/05/19 03/05/19 Range/Units 05:25 05:44 Plt Count 129 L (150-450) k/uL Neutrophils # 7.8 H (1.3-7.7) k/uL Lymphocytes # 0.6 L (1.0-4.8) k/uL ABG pH (7.35-7.45) ABG pO2 (83-108) mmHg ABG HCO3 (21-25) mmol/L ABG Total CO2 (19-24) mmol/L ABG O2 Saturation (94-97) % Carbon Dioxide (22-30) mmol/L BUN (9-20) mg/dL Glucose (74-99) mg/dL POC Glucose (mg/dL) 169 H (75-99) mg/dL Calcium (8.4-10.2) mg/dL Microbiology - Last 24 Hours (Table) 03/04/19 12:20 Gram Stain - Preliminary Sputum Sputum Culture - Preliminary 03/01/19 19:04 Blood Culture - Preliminary Blood No Growth after 72 hours 03/01/19 20:42 Gram Stain - Final Sputum Sputum Culture - Final Assessment and Plan (1) Pulmonary edema Current Visit: Yes Status: Acute Code(s): J81.1 - CHRONIC PULMONARY EDEMA SNOMED Code(s): 04900968 (2) Severe aortic stenosis Current Visit: Yes Status: Acute Code(s): I35.0 - NONRHEUMATIC AORTIC (VALVE) STENOSIS SNOMED Code(s): 58665313 (3) Chronic a-fib Current Visit: No Status: Acute Code(s): I48.2 - CHRONIC ATRIAL FIBRILLATION * DO NOT USE * SNOMED Code(s): 704055359 (4) HTN (hypertension) Current Visit: No Status: Acute Code(s): I10 - ESSENTIAL (PRIMARY) HYPERTENSION SNOMED Code(s): 48714172 Plan: continue IV Lasix and also IV Cardizem. Once patient is extubated, will switch to by mouth medications. Further examination depend upon the glucose. P rognosis is guarded.
--- NOTE | 2019-03-05 10:03 | P.PN ---
Subjective Progress Note Date: 03/05/19 On 03/05/2019, patient is still intubated on a mechanical ventilator. This morning. Propofol running at 50 g per KG per minute. He is easily arousable. He is on a mechanical ventilator. The PEEP has been drop down to 5 and is an FiO2 of 40% with a tidal volume of 500 and the rate of 18. The blood gas shows a pH of 7.49 with a pCO2 of 44 and pO2 of 61. The peak airway pressure is 20. He remains on a Lasix drip at 5 mg an hour. Net fluid balance is negative another 2 L over the past 24 hours. He is being supported with norepinephrine infusion which is currently running at 0.1 g per KG per minute. Urine output is no other of 75 mL an hour. He does have some limited hematuria and Eliquis still on hold. His cardiac rhythm is still atrial fibrillation it is under good control for now. He is receiving enteral feeding for nutritional support at the rate of 34 mL an hour. His creatinine 0.9. His serum bicarb is up to 32. Hemoglobin stable at 15.7. White cell count is at 9.5. His the triple-lumen catheter in his left subclavian. No other significant events overnight. As men tioned earlier, the patient has severe aortic stenosis. He has a valve area of 0.5 cm. His ejection fraction is within normal limits with an EF of around 50- 55%. He has severe pulmonary hypertension with a PA Jenny of 67. He remains on IV cefepime. This is empiric antibiotic coverage. No fever. No chills. Objective - Vital Signs Vital signs: Vital Signs Temp 97.9 F 03/05/19 08:00 Pulse 92 03/05/19 09:00 Resp 19 03/05/19 09:00 BP 117/84 03/05/19 08:30 Pulse Ox 94 L 03/05/19 09:00 Intake & Output 03/04/19 03/05/19 03/05/19 18:59 06:59 18:59 Intake Total 7341.029 6305.355 305.9 Output Total 1570 1380 625 Balance -436.702 -230.645 -319.1 Weight 105.8 kg 104.2 kg Intake: IV 360 360 70 0.9 Normal Saline 360 360 70 Intake, IV Titration 709.298 291.355 103.9 Amount Cefepime 2 gm In Sodium 100 100 Chloride 0.9% 100 ml @ 200 mls/hr IVPB Q12HR [facility] Rx#:[id number] Diltiazem 125 mg In 51.333 73.667 Sodium Chloride 0.9% 100 ml @ 5 MG/HR 5 mls/hr IV .Q24H [facility] Rx#:[id number] Furosemide 100 mg In 115 65 Sodium Chloride 0.9% 90 ml @ 5 MG/HR 5 mls/hr IV .Q20H [facility] Rx#:[id number] Norepinephrine 32 mg In 254.402 103.9 Sodium Chloride 0.9% 218 ml @ 0.05 MCG/KG/MIN 2. 564 mls/hr IV .Q24H [facility] Rx#:[id number] Propofol 1,000 mg In 188.563 52.688 Empty Bag 1 bag @ Titrate IV .Q0M [facility] Rx#: [id number] Tube Feeding 34 408 102 Other 30 90 30 Output: Urine 1570 1380 625 Other: Voiding Method Indwelling Catheter Indwelling Catheter Indwelling Catheter ABP, PAP, CO, CI - Last Documented Arterial Blood Pressure 109/60 - Exam Intubated, comfortable likely distress. Sedated on propofol which is running at 30 g per KG per minute. Head exam was generally normal. There was no scleral icterus or corneal arcus. Mucous membranes were moist. Neck was supple and with jugular venous distension, without thyromegaly, or carotid bruits. Carotids were easily palpable bilaterally. There was no adenopathy. There is positive JVDs at 30 bed elevation. There is no goiter or neck masses. Lungs sounds are diminished in lung bases along with some bibasilar crackles. No wheezes or rhonchi. Heart sounds are irregular, positive S1-S2 and there is a systolic ejection murmur grade 3/6 heard over the left lateral sternal border and apex. This is radiating to the neck. Abdominal exam revealed normal bowel sounds. The abdomen was soft, non-tender, and without masses, organomegaly, or appreciable enlargement of the abdominal aorta. Extremities revealed +1-2 pitting edema. edema in the lower extremities are improving as the patient is being diuresis with IV Lasix. No cyanosis. No clubbing. Some superficial ulceration. No open wounds or sores. No cellulitis. Neurologically the patient is was sedated. He can arouse from sedation easily upon stimulation. Is moving all 4 extremities upon Nicole stimulation. Pupils are equal and reactive to light.patient is to be given a sedation holiday this morning. Examination of the skin revealed no evidence of significant rashes, suspicious appearing nevi or other concerning lesions. - Labs CBC & Chem 7: 03/05/19 05:25 03/05/19 05:25 Labs: Abnormal Lab Results - Last 24 Hours (Table) 03/04/19 03/04/19 03/04/19 Range/Units 11:40 13:55 18:05 Plt Count (150-450) k/uL Neutrophils # (1.3-7.7) k/uL Lymphocytes # (1.0-4.8) k/uL ABG pH (7.35-7.45) ABG pO2 (83-108) mmHg ABG HCO3 (21-25) mmol/L ABG Total CO2 (19-24) mmol/L ABG O2 Saturation (94-97) % Carbon Dioxide (22-30) mmol/L BUN (9-20) mg/dL Glucose (74-99) mg/dL POC Glucose (mg/dL) 173 H 194 H 142 H (75-99) mg/dL Calcium (8.4-10.2) mg/dL 03/04/19 03/05/19 03/05/19 Range/Units 23:31 05:16 05:25 Plt Count (150-450) k/uL Neutrophils # (1.3-7.7) k/uL Lymphocytes # (1.0-4.8) k/uL ABG pH 7.49 H (7.35-7.45) ABG pO2 61 L (83-108) mmHg ABG HCO3 34 H (21-25) mmol/L ABG Total CO2 35 H (19-24) mmol/L ABG O2 Saturation 92.0 L (94-97) % Carbon Dioxide 32 H (22-30) mmol/L BUN 26 H (9-20) mg/dL Glucose 164 H (74-99) mg/dL POC Glucose (mg/dL) 152 H (75-99) mg/dL Calcium 8.0 L (8.4-10.2) mg/dL 12/21/19 12/21/19 Range/Units 05:25 05:44 Plt Count 129 L (150-450) k/uL Neutrophils # 7.8 H (1.3-7.7) k/uL Lymphocytes # 0.6 L (1.0-4.8) k/uL ABG pH (7.35-7.45) ABG pO2 (83-108) mmHg ABG HCO3 (21-25) mmol/L ABG Total CO2 (19-24) mmol/L ABG O2 Saturation (94-97) % Carbon Dioxide (22-30) mmol/L BUN (9-20) mg/dL Glucose (74-99) mg/dL POC Glucose (mg/dL) 169 H (75-99) mg/dL Calcium (8.4-10.2) mg/dL Microbiology - Last 24 Hours (Table) 03/04/19 12:20 Gram Stain - Preliminary Sputum Sputum Culture - Preliminary 03/01/19 19:04 Blood Culture - Preliminary Blood No Growth after 72 hours 03/01/19 20:42 Gram Stain - Final Sputum Sputum Culture - Final Assessment and Plan Plan: 1 acute hypoxic respiratory failure secondary to CHF/pulmonary edema. Patient is currently intubated on a mechanical ventilator. The patient's chest x-ray from today still showing pulmonary edema and cardiomegaly. Despite his ongoing diuresis, the patient's chest x-ray findings on the same. His oxygenation has improved and the PEEP has been drop down to 5 and FiO2 of 40%. No signs of pneumonia. The patient is being diuresed with IV Lasix and the blood pressures being supported with norepinephrine infusion. 2 severe aortic stenosis with a valve area of 0.5 cm consistent with severe . The patient presented with daily, Senokot heart failure and pulmonary edema. He remains on Lasix drip. He is in a negative fluid balance. Levo fed is being used to support his blood pressure. 3 abnormal troponin, consider a non-ST segment elevation myocardial infarction versus troponin leak related to decompensated heart failure 4 acute lactic acidosis secondary to above, recovered 5 chronic atrial fibrillation rate is controlled and the patient is on long-term anticoagulation with Eliquis, the Eliquis was briefly placed on hold and the patient developed some hematuria 6 lower extremity edema secondary to become stated heart failure 7 hypotension requiring pressors 8 CVA history of 9 seizure history currently on Keppra 10 hypertension 11 history of prostate cancer post radiation therapy 12 hyperlipidemia 13 acute kidney injury secondary to above, improving, and the kidney function normalized. 14 hematuria Plan continue vent support, given a sedation holiday and assess weaning parameters. Not too optimistic that the patient is amenable today as his chest x-ray still showing pulmonary edema. It's worthwhile at least trying to get some weaning parameters and give the patient is point is breathing trial and assess his abil ity to wean and extubate. IV Lasix drip at 5 mg an hour Levo fed for hemodynamic support Monitor renal function Watch for any hematuria Echocardiogram was noted Sputum Gram stain and culture, and came back negative We'll continue to follow Condition is critical. We'll continue to follow. Evaluation was done and more than 30 minutes. Time with Patient: Greater than 30
[2019-03-05 12:03] LABS: Allen Test Performed? Yes
[2019-03-05 12:04] LABS: ABG HCO3 34 mmol/L (21-25); ABG PCO2 48 mmHg (35-45); ABG PH 7.46 (7.35-7.45); ABG PO2 65 mmHg (83-108); ABG TCO2 35 mmol/L (19-24)
[2019-03-05 12:05] LABS: ABG Base Excess 10.1 mmol/L
[2019-03-05 12:09] LABS: Glucose,Whole Blood 157 mg/dL (75-99)
--- NOTE | 2019-03-05 12:47 | US ---
EXAMINATION TYPE: US renals and bladder DATE OF EXAM: 03/05/2019 COMPARISON: NONE CLINICAL HISTORY: hematuria, prostate CA. ICU patient on a vent, no mobility, gross hematuria EXAM MEASUREMENTS: Right Kidney: 12.9 x 6.9 x 6.8 cm Left Kidney: 11.2 x 4.8 x 6.0 cm Right Kidney: 3.0cm inferior pole cyst seen Left Kidney: limited visibility appears wnl Bladder: ovalle cath seen IMPRESSION: SIMPLE APPEARING, 3 CM RIGHT LOWER POLE RENAL CYST.
--- NOTE | 2019-03-05 13:15 | P.GSCN ---
History of Present Illness Consult date: 03/05/19 Reason for Consult: Gross Hematuria History of present illness: This is a 79-year-old gentleman with history of severe aortic stenosis who was admitted to the hospital with significant pulmonary edema, requiring intubation. He is currently in the ICU intubated. Urology is consulted for Gross hematuria. Of note he is on eliquis and Aspirin. Both or on hold secondary to his gross hematuria. hematuria resolved following cessation of anticoagulation. He has hx of Prostate cancer S/P EBRT. He underwent RBUS which showed no upper tract pathology. 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 History of Any Multi-Drug Resistant Organisms: None Reported Additional Past Surgical History / Comment(s): colonoscopy x3, Past Anesthesia/Blood Transfusion Reactions: No Reported Reaction Past Psychological History: No Psychological Hx Reported Smoking Status: Unknown if ever smoked Past Alcohol Use History: None Reported Past Drug Use History: None Reported - Past Family History Sister(s) Family Medical History: Diabetes Mellitus, Myocardial Infarction (PR) Additional Family Medical History / Comment(s): sister from an PR Mother Family Medical History: No Reported History Additional Family Medical History / Comment(s): multiple sclerosis Son(s) Family Medical History: Hypertension Father Additional Family Medical History / Comment(s): ETOH abuse Medications and Allergies Home Medications Medication Instructions Recorded Confirmed Type Simvastatin [Zocor] 40 mg PO HS 10/23/14 03/01/19 History Apixaban [Eliquis] 5 mg PO BID tab 11/09/14 03/01/19 Rx Metoprolol Succinate [Toprol XL] 100 mg PO HS 03/06/15 03/01/19 History Cholecalciferol [Vitamin D3 (25 1,000 unit PO DAILY 11/05/15 03/01/19 History Mcg = 1000 Iu)] Multivitamins, Thera [Multivitamin 1 tab PO DAILY 11/05/15 03/01/19 History (formulary)] amLODIPine BESYLATE/BENAZEPRIL 1 cap PO DAILY 11/05/15 03/01/19 History [amLODIPine BESYLATE/BENAZEPRIL 5-20 MG] Aspirin EC [Ecotrin Low Dose] 81 mg PO DAILY 03/20/16 03/01/19 History levETIRAcetam [Keppra] 500 mg PO Q12HR #60 tab 03/24/16 03/01/19 Rx Furosemide [Lasix] 40 mg PO DAILY #30 tablet 02/12/17 03/01/19 Rx Spironolactone [Aldactone] 25 mg PO HS 03/01/19 03/01/19 History Allergies Allergy/AdvReac Type Severity Reaction Status Date / Time No Known Allergies Allergy Verified 03/01/19 19:56 Surgical - Exam Vital Signs Pulse Resp BP Pulse Ox 91 10 L 95/71 77 L 03/01/19 17:53 03/01/19 17:53 03/01/19 17:53 03/01/19 17:53 - General no distress, no pain - Respiratory intubated - Abdomen Abdomen: soft, non tender, no distended - Genitourinary ovalle draining clear yellow urine this am - Psychiatric responding to command oriented to time, oriented to person Results - Labs 03/05/19 05:25 03/05/19 05:25 Abnormal Lab Results - Last 24 Hours (Table) 03/04/19 03/04/19 03/04/19 Range/Units 13:55 18:05 23:31 Plt Count (150-450) k/uL Neutrophils # (1.3-7.7) k/uL Lymphocytes # (1.0-4.8) k/uL ABG pH (7.35-7.45) ABG pCO2 (35-45) mmHg ABG pO2 (83-108) mmHg ABG HCO3 (21-25) mmol/L ABG Total CO2 (19-24) mmol/L ABG O2 Saturation (94-97) % Carbon Dioxide (22-30) mmol/L BUN (9-20) mg/dL Glucose (74-99) mg/dL POC Glucose (mg/dL) 194 H 142 H 152 H (75-99) mg/dL Calcium (8.4-10.2) mg/dL 03/05/19 03/05/19 03/05/19 Range/Units 05:16 05:25 05:25 Plt Count 129 L (150-450) k/uL Neutrophils # 7.8 H (1.3-7.7) k/uL Lymphocytes # 0.6 L (1.0-4.8) k/uL ABG pH 7.49 H (7.35-7.45) ABG pCO2 (35-45) mmHg ABG pO2 61 L (83-108) mmHg ABG HCO3 34 H (21-25) mmol/L ABG Total CO2 35 H (19-24) mmol/L ABG O2 Saturation 92.0 L (94-97) % Carbon Dioxide 32 H (22-30) mmol/L BUN 26 H (9-20) mg/dL Glucose 164 H (74-99) mg/dL POC Glucose (mg/dL) (75-99) mg/dL Calcium 8.0 L (8.4-10.2) mg/dL 03/05/19 03/05/19 03/05/19 Range/Units 05:44 11:30 11:57 Plt Count (150-450) k/uL Neutrophils # (1.3-7.7) k/uL Lymphocytes # (1.0-4.8) k/uL ABG pH 7.46 H (7.35-7.45) ABG pCO2 48 H (35-45) mmHg ABG pO2 65 L (83-108) mmHg ABG HCO3 34 H (21-25) mmol/L ABG Total CO2 35 H (19-24) mmol/L ABG O2 Saturation 93.0 L (94-97) % Carbon Dioxide (22-30) mmol/L BUN (9-20) mg/dL Glucose (74-99) mg/dL POC Glucose (mg/dL) 169 H 157 H (75-99) mg/dL Calcium (8.4-10.2) mg/dL Microbiology - Last 24 Hours (Table) 03/04/19 12:20 Gram Stain - Preliminary Sputum Sputum Culture - Preliminary 03/01/19 19:04 Blood Culture - Preliminary Blood No Growth after 72 hours 03/01/19 20:42 Gram Stain - Final Sputum Sputum Culture - Final Diabetes panel 03/04/19 03/05/19 Range/Units 15:53 05:25 Sodium 137 (137-145) mmol/L Potassium 3.9 3.8 (3.5-5.1) mmol/L Chloride 99 (98-107) mmol/L Carbon Dioxide 32 H (22-30) mmol/L BUN 26 H (9-20) mg/dL Creatinine 0.95 (0.66-1.25) mg/dL Glucose 164 H (74-99) mg/dL Calcium 8.0 L (8.4-10.2) mg/dL Calcium panel 03/05/19 Range/Units 05:25 Calcium 8.0 L (8.4-10.2) mg/dL Pituitary panel 03/04/19 03/05/19 Range/Units 15:53 05:25 Sodium 137 (137-145) mmol/L Potassium 3.9 3.8 (3.5-5.1) mmol/L Chloride 99 (98-107) mmol/L Carbon Dioxide 32 H (22-30) mmol/L BUN 26 H (9-20) mg/dL Creatinine 0.95 (0.66-1.25) mg/dL Glucose 164 H (74-99) mg/dL Calcium 8.0 L (8.4-10.2) mg/dL Adrenal panel 03/04/19 03/05/19 Range/Units 15:53 05:25 Sodium 137 (137-145) mmol/L Potassium 3.9 3.8 (3.5-5.1) mmol/L Chloride 99 (98-107) mmol/L Carbon Dioxide 32 H (22-30) mmol/L BUN 26 H (9-20) mg/dL Creatinine 0.95 (0.66-1.25) mg/dL Glucose 164 H (74-99) mg/dL Calcium 8.0 L (8.4-10.2) mg/dL Assessment and Plan Assessment: Mr Martin is 79 yo admitted to the hospital with significant pulmonary edema requiring intubation. Urology is consulted for gross hematuria. Of note he has hx of prostate cancer S/P EBRT. Hematuria resolved with cessation of anticoagulation Plan: -No hematuria on evaluation today, ok to resume anticoagulation -RBUS showed no upper tract pathology -Will need outpatient cystoscopy to complete hematuria workup.
[2019-03-05 18:42] LABS: Glucose,Whole Blood 130 mg/dL (75-99)
[2019-03-05] MEDS: FUROSEMIDE 100 MG in SODIUM CHLORIDE 0.9% 90 ML IV SCH (19:55)
[2019-03-05] MEDS: NOREPINEPHRINE 32 MG in SODIUM CHLORIDE 0.9% 218 ML IV SCH (20:33)
[2019-03-05] MEDS: APIXABAN 5 MG TAB PO SCH (20:46)
[2019-03-05] MEDS: ATORVASTATIN 20 MG TAB PO SCH (20:46)
[2019-03-05] MEDS: SODIUM CHLORIDE 0.9% 1,000 ML IV SCH (23:49)
[2019-03-06 00:17] LABS: Glucose,Whole Blood 125 mg/dL (75-99)
[2019-03-06] MEDS: INSULIN ASPART (NovoLOG) 100 UNIT/ML VIAL SQ SCH ×5 (00:37→23:48)
[2019-03-06] MEDS: IPRATROPIUM-ALBUTEROL 3 ML NEB INHALATION SCH ×5 (03:16→20:40)
[2019-03-06] MEDS: DILTIAZEM 125 MG in SODIUM CHLORIDE 0.9% 100 ML IV SCH (03:39)
[2019-03-06 06:24] LABS: Basophils # (A) 0.1 k/uL (0-0.2); Basophils % (A) 1 %; Eosinophils # (A) 0.3 k/uL (0-0.7); Eosinophils % (A) 4 %; HCT 46.4 % (39.0-53.0); HGB 14.7 gm/dL (13.0-17.5); Hypochromasia Moderate; Lymphocytes # (A) 0.6 k/uL (1.0-4.8); Lymphocytes % (A) 7 %; MCH 29.5 pg (25.0-35.0); MCHC 31.7 g/dL (31.0-37.0); Monocytes # (A) 0.6 k/uL (0-1.0); Monocytes % (A) 7 %; Neutrophils # (A) 6.5 k/uL (1.3-7.7); Neutrophils % (A) 77 %; Platelet Count 118 k/uL (150-450); RBC 4.99 m/uL (4.30-5.90); RDW 15.4 % (11.5-15.5); WBC 8.3 k/uL (3.8-10.6)
--- NOTE | 2019-03-06 06:27 | XR ---
EXAMINATION TYPE: XR chest 1V portable DATE OF EXAM: 03/06/2019 HISTORY: Tube placement. REFERENCE: Previous study dated 03/05/2019. FINDINGS: There is a left subclavian catheter in place. Its tip is in the superior vena cava. The pat ient's ET tube and NG tube been removed. The heart is enlarged. There is vascular congestion and pulmonary edema. There are bilateral effusion s. IMPRESSION: WORSENING CHANGES OF CONGESTIVE HEART FAILURE.
[2019-03-06 06:29] LABS: Calcium 8.4 mg/dL (8.4-10.2); Potassium 3.9 mmol/L (3.5-5.1)
[2019-03-06 06:33] LABS: Glucose,Whole Blood 120 mg/dL (75-99)
--- NOTE | 2019-03-06 09:38 | P.PN ---
Subjective Progress Note Date: 03/06/19 on 03/06/2019 the patient is extubated and currently is on oxygen at 8 L per minute nasal cannula with a pulse ox of 93%. He is on a Lasix drip at 5 mg an hour. He continues to make excellent urine output and he is net fluid balance over the past 24 hours is been - 1.3 L. Nevertheless, despite ongoing diuresis, the chest x-ray still showing Ludy megaly and worsening in CHF. As mentioned earlier, the patient has severe aortic stenosis. He is still in atrial fibrillation. Norepinephrine infusion is being utilized for blood pressure control and currently is running at 0.06 units per KG per minute. His serum bicarb is up and on his blood gases he has developed some metabolic alkalosis. Serum bicarbonate was up to 34. I'm going to give him 2 doses of Diamox for now. Otherwise, he is weak. He is awake. Is following commands. He did have dinner yesterday and he did have breakfast this morning. No fever. No chills. Will be given an incentive spirometer.As mentioned earlier, the patient has severe aortic stenosis. He has a valve area of 0.5 cm. His ejection fraction is within normal limits with an EF of around 50-55%. He has severe pulmonary hypertension with a PA Jenny of 67. He remains on IV cefepime. This is empiric antibiotic coverage. No fever. No chills Objective - Vital Signs Vital signs: Vital Signs Temp 98.1 F 03/06/19 04:00 Pulse 86 03/06/19 09:05 Resp 20 03/06/19 01:00 BP 113/67 03/06/19 07:00 Pulse Ox 89 L 03/06/19 06:30 Intake & Output 03/05/19 03/06/19 03/06/19 18:59 06:59 18:59 Intake Total 656.692 787.000 20 Output Total 1855 885 170 Balance -1198.308 -98.000 -150 Weight 104.6 kg Intake: IV 350 340 20 0.9 Normal Saline 30 Cefepime 2 gm In Sodium 100 100 Chloride 0.9% 100 ml @ 200 mls/hr IVPB Q12HR [facility] Rx#:[id number] Sodium Chloride 0.9% 1, 220 240 20 000 ml @ 20 mls/hr IV . Q24H [facility] Rx#:[id number] Intake, IV Titration 140.692 207.000 Amount Diltiazem 125 mg In 107.083 Sodium Chloride 0.9% 100 ml @ 5 MG/HR 5 mls/hr IV .Q24H [facility] Rx#:[id number] Furosemide 100 mg In 99.917 Sodium Chloride 0.9% 90 ml @ 5 MG/HR 5 mls/hr IV .Q20H [facility] Rx#:[id number] Norepinephrine 32 mg In 140.276 0 Sodium Chloride 0.9% 218 ml @ 0.05 MCG/KG/MIN 2. 564 mls/hr IV .Q24H [facility] Rx#:[id number] Propofol 1,000 mg In 0.416 Empty Bag 1 bag @ Titrate IV .Q0M [facility] Rx#: [id number] Oral 240 Tube Feeding 136 Other 30 Output: Urine 1855 885 170 Other: Voiding Method Indwelling Catheter Indwelling Catheter ABP, PAP, CO, CI - Last Documented Arterial Blood Pressure 112/61 - Exam Intubated, comfortable likely distress. extubated at 6 L of oxygen by nasal cannula Head exam was generally normal. There was no scleral icterus or corneal arcus. Mucous membranes were moist. Neck was supple and with jugular venous distension, without thyromegaly, or carotid bruits. Carotids were easily palpable bilaterally. There was no adenopathy. There is positive JVDs at 30 bed elevation. There is no goiter or neck masses. Lungs sounds are diminished in lung bases along with some bibasilar crackles. No wheezes or rhonchi. Heart sounds are irregular, positive S1-S2 and there is a systolic ejection m urmur grade 3/6 heard over the left lateral sternal border and apex. This is radiating to the neck. Abdominal exam revealed normal bowel sounds. The abdomen was soft, non-tender, and without masses, organomegaly, or appreciable enlargement of the abdominal aorta. Extremities revealed edema in the lower extremities are improving as the patient is being diuresis with IV Lasix. No cyanosis. No clubbing. Some superficial ulceration. No open wounds or sores. No cellulitis. Neurologically the patient is awake and alert Examination of the skin revealed no evidence of significant rashes, suspicious appearing nevi or other concerning lesions. - Labs CBC & Chem 7: 03/06/19 06:00 03/06/19 06:00 Labs: Abnormal Lab Results - Last 24 Hours (Table) 03/05/19 03/05/19 03/05/19 Range/Units 11:30 11:57 18:31 Plt Count (150-450) k/uL Lymphocytes # (1.0-4.8) k/uL ABG pH 7.46 H (7.35-7.45) ABG pCO2 48 H (35-45) mmHg ABG pO2 65 L (83-108) mmHg ABG HCO3 34 H (21-25) mmol/L ABG Total CO2 35 H (19-24) mmol/L ABG O2 Saturation 93.0 L (94-97) % Carbon Dioxide (22-30) mmol/L BUN (9-20) mg/dL Glucose (74-99) mg/dL POC Glucose (mg/dL) 157 H 130 H (75-99) mg/dL 03/06/19 03/06/19 03/06/19 Range/Units 00:06 06:00 06:00 Plt Count 118 L (150-450) k/uL Lymphocytes # 0.6 L (1.0-4.8) k/uL ABG pH (7.35-7.45) ABG pCO2 (35-45) mmHg ABG pO2 (83-108) mmHg ABG HCO3 (21-25) mmol/L ABG Total CO2 (19-24) mmol/L ABG O2 Saturation (94-97) % Carbon Dioxide 34 H (22-30) mmol/L BUN 28 H (9-20) mg/dL Glucose 135 H (74-99) mg/dL POC Glucose (mg/dL) 125 H (75-99) mg/dL 03/06/19 Range/Units 06:22 Plt Count (150-450) k/uL Lymphocytes # (1.0-4.8) k/uL ABG pH (7.35-7.45) ABG pCO2 (35-45) mmHg ABG pO2 (83-108) mmHg ABG HCO3 (21-25) mmol/L ABG Total CO2 (19-24) mmol/L ABG O2 Saturation (94-97) % Carbon Dioxide (22-30) mmol/L BUN (9-20) mg/dL Glucose (74-99) mg/dL POC Glucose (mg/dL) 120 H (75-99) mg/dL Microbiology - Last 24 Hours (Table) 03/01/19 19:04 Blood Culture - Preliminary Blood No Growth after 96 hours Assessment and Plan Plan: 1 acute hypoxic respiratory failure secondary to CHF/pulmonary edema. Patient is currently intubated on a mechanical ventilator. The patient's chest x-ray from today still showing pulmonary edema and cardiomegaly. Despite his ongoing diuresis, the patient's chest x-ray findings on the same. norepinephrine infusion o support the blood pressure. The patient is currently doing well. He is extubated. Chest x-ray showing still cardiomegaly and CHF. I'm wondering if there is any underlying pleural effusion. Went to proceed with ultrasound of the chest. I'm going to keep the IV Lasix. I'm going to give Diamox to counteract metabolic alkalosis. 2 severe aortic stenosis with a valve area of 0.5 cm consistent with severe . The patient presented with heart failure and pulmonary edema. He remains on Lasix drip. He is in a negative fluid balance. Levo fed is being used to support his blood pressure. 3 abnormal troponin, consider a non-ST segment elevation myocardial infarction versus troponin leak related to decompensated heart failure 4 acute lactic acidosis secondary to above, recovered 5 chronic atrial fibrillation rate is controlled and the patient is on long-term anticoagulation with Eliquis, the Eliquis was briefly placed on hold and the patient developed some hematuria 6 lower extremity edema secondary to become stated heart failure, improved edema lower extremities bilaterally 7 hypotension requiring pressors 8 CVA history of 9 seizure history currently on Keppra 10 hypertension 11 history of prostate cancer post radiation therapy 12 hyperlipidemia 13 acute kidney injury secondary to above, improving, and the kidney function normalized. 14 hematuria, inactive and stable currently on Eliquis 15 metabolic alkalosis secondary to severe diuresis, will counteract with Diamox Plan the patient is extubated. the patient is on 8 L of oxygen by nasal cannula Continue Lasix drip Add Diamox to 250 mg every 12 hours 2 doses Incentive spirometer Ultrasound of the chest to assess for any pleural effusion and performed a th oracentesis if needed Sit up on a chair if possible today We'll continue to follow.
[2019-03-06] MEDS: CEFEPIME 2 GM in SODIUM CHLORIDE 0.9% 100 ML IVPB SCH ×2 (10:26→20:50)
[2019-03-06] MEDS: ASPIRIN 81 MG PO SCH (10:27)
[2019-03-06] MEDS: APIXABAN 5 MG TAB PO SCH ×2 (10:27→20:50)
[2019-03-06] MEDS: levETIRAcetam 500 MG TAB PO SCH ×2 (10:27→20:49)
[2019-03-06] MEDS: PANTOPRAZOLE 40 MG/10 ML VIAL IV SCH (10:34)
[2019-03-06] MEDS: SPIRONOLACTONE 25 MG TAB PO SCH ×2 (10:34→20:49)
--- NOTE | 2019-03-06 10:39 | US ---
EXAMINATION TYPE: US chest DATE OF EXAM: 03/06/2019 COMPARISON: NONE CLINICAL HISTORY: Markings for thoracentesis by pulmonary staff. TECHNIQUE: Targeted ultrasound of the posterior lower EXAM MEASUREMENTS: Right Pleural Effusion pocket size: 2.5 cm Right skin surface to fluid distance: 2.8 cm Left Pleural Effusion pocket size: 3.8 cm Left skin surface to fluid distance: 4.0 cm Right side not marked for possible thoracentesis outside the dept. Left side marked for possible thoracentesis outside the dept, however effusions has a lot of internal echoes and appears honeycombed. Pulmonologists are able to review the images in the patient?s EMR. IMPRESSIONS: SMALL, BILATERAL PLEURAL EFFUSIONS.
[2019-03-06] MEDS: METOPROLOL TARTRATE 25 MG TAB PO SCH ×2 (10:40→20:50)
--- NOTE | 2019-03-06 10:43 | P.PN ---
Subjective Progress Note Date: 03/05/19 Principal diagnosis: acute hypoxic respiratory failure secondary to pulmonary edema/acute CHF. patient a pleasant 79-year-old white male admitted through the emergency department into the ICU for acute respiratory failure and pulmonary edema he is currently on a ventilator with IV sedation. 03/03/2019 remains ventilator dependent with FiO2 50%/+12 of PEEP. chest x-ray reporting small pleural effusions with bibasilar atelectasis/consolidation. sputum culture pending.Continues on Diprovan, Cardizem, Lasix and Levophed drips.telemetry atrial fib.Cardizem dose increased as per cardiology with a dose of digoxin.creatinine 1.26.Echo reporting the low-normal LV function, EF 50-55%, moderate to severe aortic stenosis, moderate to severe mitral and tricuspid regurgitation, moderate to severe pulmonary hypertension.afebrile. 03/04/2019 chest x-ray continues to report pulmonary edema. ABGs noted. remains vent dependent, FiO2 40% with PEEP down to +12. Telemetry atrial fibrillation .Continues on to prevent, Cardizem, Lasix and Levophed drips. Developed hematuria throughout the night, urology consulted, aspirin and Eliquis on hold. Tube feeds initiated during the night via OG, tolerating well with minimal to no residuals. Maintained on empiric cefepime .Afebrile. 03/05/2019 patient was admitted to hospital with acute hypoxic respiratory failure secondary to pulmonary edema, severe aortic stenosis. Patient remained on mechanical ventilatorand sedated.. Currently being continued onIV Lasix and is also on pressor support with Levophed. Patient is diuresing well. 2-D echocardiogram showed ejection fraction 50-55% and severe pulmonary hypertension with pulmonary arterial pressure of 67. Otherwise patient did have hematuria for which urology has seen the patient and recommends outpatient cystoscopy and no active bleeding currently. He is also on IV Cardizem drip. Patient is receiving NG tube feedings. WBC 9.5 and hemoglobin 15.7 bicarb is 32 and creatinine level is 0.9.patient is also on empiric antibiotics in the form of cefepime. Discussed with his at bedside in detail. Current medications reviewed. Objective - Vital Signs Vital signs: Vital Signs Temp 97.9 F 03/05/19 12:00 Pulse 84 03/05/19 13:15 Resp 23 03/05/19 13:15 BP 112/78 03/05/19 13:15 Pulse Ox 93 L 03/05/19 13:15 Intake & Output 03/04/19 03/05/19 03/05/19 18:59 06:59 18:59 Intake Total 5080.882 7984.355 518.264 Output Total 1570 1380 1105 Balance -436.702 -230.645 -586.736 Weight 105.8 kg 104.2 kg Intake: IV 360 360 230 0.9 Normal Saline 360 360 30 Cefepime 2 gm In Sodium 100 Chloride 0.9% 100 ml @ 200 mls/hr IVPB Q12HR [facility] Rx#:[id number] Sodium Chloride 0.9% 1, 100 000 ml @ 20 mls/hr IV . Q24H [facility] Rx#:[id number] Intake, IV Titration 709.298 291.355 122.264 Amount Cefepime 2 gm In Sodium 100 100 Chloride 0.9% 100 ml @ 200 mls/hr IVPB Q12HR [facility] Rx#:[id number] Diltiazem 125 mg In 51.333 73.667 Sodium Chloride 0.9% 100 ml @ 5 MG/HR 5 mls/hr IV .Q24H [facility] Rx#:[id number] Furosemide 100 mg In 115 65 Sodium Chloride 0.9% 90 ml @ 5 MG/HR 5 mls/hr IV .Q20H [facility] Rx#:[id number] Norepinephrine 32 mg In 254.402 121.848 Sodium Chloride 0.9% 218 ml @ 0.05 MCG/KG/MIN 2. 564 mls/hr IV .Q24H [facility] Rx#:[id number] Propofol 1,000 mg In 188.563 52.688 Empty Bag 1 bag @ Titrate IV .Q0M [facility] Rx#: [id number] Propofol 1,000 mg In 0.416 Empty Bag 1 bag @ Titrate IV .Q0M [facility] Rx#: [id number] Tube Feeding 34 408 136 Other 30 90 30 Output: Urine 1570 1380 1105 Other: Voiding Method Indwelling Catheter Indwelling Catheter Indwelling Catheter ABP, PAP, CO, CI - Last Documented Arterial Blood Pressure 110/60 - Exam PHYSICAL EXAMINATION: Patient is lying in the bed comfortably,currently on mechanical ventilator and sedated... HEENT: Normocephalic. Neck is supple. Pupils reactive. Nostrils clear. Oral cavity is moist. Ears reveal no drainage. Neck reveals no JVD, carotid bruits, or thyromegaly. CHEST EXAMINATION: Trachea is central.ET tube in place. Symmetrical expansion. bibasilar diminished air entry and minimal crackles present. No wheezing. CARDIAC: Normal S1, S2 with no gallops. No murmurs ABDOMEN: Soft. Bowel sounds normal. No organomegaly. No abdominal bruits. Extremities: 2+ pedal edema. No clubbing or cyanosis Neurologically patient is currently sedated and intubated. gross neurological status is intact. Skin: No rash or skin lesions. Psychiatric: could not be assessed completely Musculoskeletal: No joint swelling or deformity. - Labs CBC & Chem 7: 03/06/19 06:00 03/06/19 06:00 Labs: Abnormal Lab Results - Last 24 Hours (Table) 03/04/19 03/04/19 03/05/19 Range/Units 18:05 23:31 05:16 Plt Count (150-450) k/uL Neutrophils # (1.3-7.7) k/uL Lymphocytes # (1.0-4.8) k/uL ABG pH 7.49 H (7.35-7.45) ABG pCO2 (35-45) mmHg ABG pO2 61 L (83-108) mmHg ABG HCO3 34 H (21-25) mmol/L ABG Total CO2 35 H (19-24) mmol/L ABG O2 Saturation 92.0 L (94-97) % Carbon Dioxide (22-30) mmol/L BUN (9-20) mg/dL Glucose (74-99) mg/dL POC Glucose (mg/dL) 142 H 152 H (75-99) mg/dL Calcium (8.4-10.2) mg/dL 03/05/19 03/05/19 03/05/19 Range/Units 05:25 05:25 05:44 Plt Count 129 L (150-450) k/uL Neutrophils # 7.8 H (1.3-7.7) k/uL Lymphocytes # 0.6 L (1.0-4.8) k/uL ABG pH (7.35-7.45) ABG pCO2 (35-45) mmHg ABG pO2 (83-108) mmHg ABG HCO3 (21-25) mmol/L ABG Total CO2 (19-24) mmol/L ABG O2 Saturation (94-97) % Carbon Dioxide 32 H (22-30) mmol/L BUN 26 H (9-20) mg/dL Glucose 164 H (74-99) mg/dL POC Glucose (mg/dL) 169 H (75-99) mg/dL Calcium 8.0 L (8.4-10.2) mg/dL 03/05/19 03/05/19 Range/Units 11:30 11:57 Plt Count (150-450) k/uL Neutrophils # (1.3-7.7) k/uL Lymphocytes # (1.0-4.8) k/uL ABG pH 7.46 H (7.35-7.45) ABG pCO2 48 H (35-45) mmHg ABG pO2 65 L (83-108) mmHg ABG HCO3 34 H (21-25) mmol/L ABG Total CO2 35 H (19-24) mmol/L ABG O2 Saturation 93.0 L (94-97) % Carbon Dioxide (22-30) mmol/L BUN (9-20) mg/dL Glucose (74-99) mg/dL POC Glucose (mg/dL) 157 H (75-99) mg/dL Calcium (8.4-10.2) mg/dL Microbiology - Last 24 Hours (Table) 03/04/19 12:20 Gram Stain - Preliminary Sputum Sputum Culture - Preliminary 03/01/19 19:04 Blood Culture - Preliminary Blood No Growth after 72 hours Assessment and Plan Assessment: acute hypoxic respiratory failure secondary to pulmonary edema. Currently on mechanical ventilator. Acute on chronic CHF due togastrointestinal dysfunction. underlying severe aortic stenosis severe aortic stenosis elevated troponin levellikely due to CHF. Possible non-ST elevated [place] Lactic acidosis resolved Acute kidney injury with creatinine level I.48 on admission. Improved to 0.96 today. Chronic atrial fibrillation on anticoagulation with a liquid is at home.was on hold due to hematuria but restarted after urology clearance. Hematuria improved. Seen by urology. Hypovolemic/cardiogenic shock requiring pressors support Previous history of CVA history of seizures Prostate cancer status post radiation therapy Hyperlipidemia Hypertension plan: Patient is being continued on Lasix drip and Cardizem drip. continue with pressor support.patient is currently on mechanical ventilator. Critical care team is following. Monitor H&H and renal function. Continued on empiric antibiotics in the form of cefepime. Follow closely and further recommendations based on the clinical course. Cardiology is on board.prognosis is guarded. Time with Patient: Greater than 30
--- NOTE | 2019-03-06 11:36 | P.PN ---
Subjective Progress Note Date: 03/06/19 This is a 79-year-old gentleman with history of severe aortic stenosis who was admitted to the hospital with significant pulmonary edema. Patient is still intubated. Patient is diuresing well. IV Lasix was cut back to 5 mg yesterday. He is also on IV Cardizem drip. He responds to verbal stimuli. Chest x-ray showed some infiltrates. We'll continue with IV Lasix drip and also Cardizem until patient is extubated. Subsequently open switch medication to by mouth diuretics and the Cardizem. Patient eventually may need cardiac catheterization and also possible aortic valve replacement. 03/06/2019: This patient with severe aortic stenosis was admitted with CHF and pulmonary edema. Patient is extubated. He is a sitting up and seemed to be slightly lethargic but easily arousable. Doesn't appear to be in acute distress. Patient is on IV Lasix and diuresing well. His CO2 is going up and patient was initiated on Diamox by the mental health worker. Patient is going to have an ultrasound of the chest to see if there is a fluid with that could be tapped. Patient is takotna fibrillation. Chest x-ray showed cardiomegaly and bilateral pleural effusion and findings of CHF. We'll continue current medical therapy including IV Lasix. Patient may need further evaluation and possible aortic valve replacement. Prognosis is guarded Objective - Vital Signs Vital signs: Vital Signs Temp 98.1 F 03/06/19 04:00 Pulse 86 03/06/19 09:05 Resp 20 03/06/19 01:00 BP 113/67 03/06/19 07:00 Pulse Ox 89 L 03/06/19 06:30 Intake & Output 03/05/19 03/06/19 03/06/19 18:59 06:59 18:59 Intake Total 656.692 787.000 20 Output Total 1855 885 170 Balance -1198.308 -98.000 -150 Weight 104.6 kg Intake: IV 350 340 20 0.9 Normal Saline 30 Cefepime 2 gm In Sodium 100 100 Chloride 0.9% 100 ml @ 200 mls/hr IVPB Q12HR [facility] Rx#:[id number] Sodium Chloride 0.9% 1, 220 240 20 000 ml @ 20 mls/hr IV . Q24H [facility] Rx#:[id number] Intake, IV Titration 140.692 207.000 Amount Diltiazem 125 mg In 107.083 Sodium Chloride 0.9% 100 ml @ 5 MG/HR 5 mls/hr IV .Q24H [facility] Rx#:[id number] Furosemide 100 mg In 99.917 Sodium Chloride 0.9% 90 ml @ 5 MG/HR 5 mls/hr IV .Q20H [facility] Rx#:[id number] Norepinephrine 32 mg In 140.276 0 Sodium Chloride 0.9% 218 ml @ 0.05 MCG/KG/MIN 2. 564 mls/hr IV .Q24H [facility] Rx#:[id number] Propofol 1,000 mg In 0.416 Empty Bag 1 bag @ Titrate IV .Q0M [facility] Rx#: [id number] Oral 240 Tube Feeding 136 Other 30 Output: Urine 1855 885 170 Other: Voiding Method Indwelling Catheter Indwelling Catheter ABP, PAP, CO, CI - Last Documented Arterial Blood Pressure 112/61 - Exam GENERAL EXAM: Patient is intubated but follows commands HEENT: Normocephalic. Normal reaction of pupils, equal size, normal range of extraocular motion. No erythema or exudates in the throat. NECK: No masses, no nuchal rigidity. CHEST: No chest wall deformity. LUNGS: Diminished breath sounds at both bases HEART: S1 and S2 normal ABDOMEN: Soft SKIN: No rashes CENTRAL NERVOUS SYSTEM: No focal deficits. EXTREMITIES: No cyanosis, clubbing or edema. - Labs CBC & Chem 7: 03/06/19 06:00 03/06/19 06:00 Labs: Abnormal Lab Results - Last 24 Hours (Table) 03/05/19 03/05/19 03/05/19 Range/Units 11:30 11:57 18:31 Plt Count (150-450) k/uL Lymphocytes # (1.0-4.8) k/uL ABG pH 7.46 H (7.35-7.45) ABG pCO2 48 H (35-45) mmHg ABG pO2 65 L (83-108) mmHg ABG HCO3 34 H (21-25) mmol/L ABG Total CO2 35 H (19-24) mmol/L ABG O2 Saturation 93.0 L (94-97) % Carbon Dioxide (22-30) mmol/L BUN (9-20) mg/dL Glucose (74-99) mg/dL POC Glucose (mg/dL) 157 H 130 H (75-99) mg/dL 03/06/19 03/06/19 03/06/19 Range/Units 00:06 06:00 06:00 Plt Count 118 L (150-450) k/uL Lymphocytes # 0.6 L (1.0-4.8) k/uL ABG pH (7.35-7.45) ABG pCO2 (35-45) mmHg ABG pO2 (83-108) mmHg ABG HCO3 (21-25) mmol/L ABG Total CO2 (19-24) mmol/L ABG O2 Saturation (94-97) % Carbon Dioxide 34 H (22-30) mmol/L BUN 28 H (9-20) mg/dL Glucose 135 H (74-99) mg/dL POC Glucose (mg/dL) 125 H (75-99) mg/dL 03/06/19 Range/Units 06:22 Plt Count (150-450) k/uL Lymphocytes # (1.0-4.8) k/uL ABG pH (7.35-7.45) ABG pCO2 (35-45) mmHg ABG pO2 (83-108) mmHg ABG HCO3 (21-25) mmol/L ABG Total CO2 (19-24) mmol/L ABG O2 Saturation (94-97) % Carbon Dioxide (22-30) mmol/L BUN (9-20) mg/dL Glucose (74-99) mg/dL POC Glucose (mg/dL) 120 H (75-99) mg/dL Microbiology - Last 24 Hours (Table) 03/04/19 12:20 Gram Stain - Final Sputum Sputum Culture - Final 03/01/19 19:04 Blood Culture - Preliminary Blood No Growth after 96 hours Assessment and Plan (1) Pulmonary edema Current Visit: Yes Status: Acute Code(s): J81.1 - CHRONIC PULMONARY EDEMA SNOMED Code(s): 12923628 (2) Severe aortic stenosis Current Visit: Yes Status: Acute Code(s): I35.0 - NONRHEUMATIC AORTIC (VALVE) STENOSIS SNOMED Code(s): 97058478 (3) Chronic a-fib Current Visit: No Status: Acute Code(s): I48.2 - CHRONIC ATRIAL FIBRILLATION * DO NOT USE * SNOMED Code(s): 570603363 (4) HTN (hypertension) Current Visit: No Status: Acute Code(s): I10 - ESSENTIAL (PRIMARY) HYPERTENSION SNOMED Code(s): 53558587 Plan: Patient is extubated. He sitting up in the chair and doesn't appear to be in acute distress. Continuing on IV Lasix. Diamox was added. Further recommendations depend upon the clinical course. We'll discuss with Dr. VC Webb regarding possible cath and valve replacement
[2019-03-06 12:13] LABS: Glucose,Whole Blood 175 mg/dL (75-99)
[2019-03-06] MEDS: NOREPINEPHRINE 32 MG in SODIUM CHLORIDE 0.9% 218 ML IV SCH (16:42)
[2019-03-06] MEDS: FUROSEMIDE 100 MG in SODIUM CHLORIDE 0.9% 90 ML IV SCH (16:42)
[2019-03-06] MEDS: ATORVASTATIN 20 MG TAB PO SCH (20:50)
[2019-03-06] MEDS: SODIUM CHLORIDE 0.9% 1,000 ML IV SCH (20:54)
[2019-03-07] LABS: Glucose,Whole Blood 122 mg/dL (75-99)
--- NOTE | 2019-03-07 00:39 | P.PN ---
Subjective Progress Note Date: 03/06/19 Principal diagnosis: acute hypoxic respiratory failure secondary to pulmonary edema/acute CHF. patient a pleasant 79-year-old white male admitted through the emergency department into the ICU for acute respiratory failure and pulmonary edema he is currently on a ventilator with IV sedation. 03/03/2019 remains ventilator dependent with FiO2 50%/+12 of PEEP. chest x-ray reporting small pleural effusions with bibasilar atelectasis/consolidation. sputum culture pending.Continues on Diprovan, Cardizem, Lasix and Levophed drips.telemetry atrial fib.Cardizem dose increased as per cardiology with a dose of digoxin.creatinine 1.26.Echo reporting the low-normal LV function, EF 50-55%, moderate to severe aortic stenosis, moderate to severe mitral and tricuspid regurgitation, moderate to severe pulmonary hypertension.afebrile. 03/04/2019 chest x-ray continues to report pulmonary edema. ABGs noted. remains vent dependent, FiO2 40% with PEEP down to +12. Telemetry atrial fibrillation .Continues on to prevent, Cardizem, Lasix and Levophed drips. Developed hematuria throughout the night, urology consulted, aspirin and Eliquis on hold. Tube feeds initiated during the night via OG, tolerating well with minimal to no residuals. Maintained on empiric cefepime .Afebrile. 03/05/2019 patient was admitted to hospital with acute hypoxic respiratory failure secondary to pulmonary edema, severe aortic stenosis. Patient remained on mechanical ventilatorand sedated.. Currently being continued onIV Lasix and is also on pressor support with Levophed. Patient is diuresing well. 2-D echocardiogram showed ejection fraction 50-55% and severe pulmonary hypertension with pulmonary arterial pressure of 67. Otherwise patient did have hematuria for which urology has seen the patient and recommends outpatient cystoscopy and no active bleeding currently. He is also on IV Cardizem drip. Patient is receiving NG tube feedings. WBC 9.5 and hemoglobin 15.7 bicarb is 32 and creatinine level is 0.9.patient is also on empiric antibiotics in the form of cefepime. Discussed with his at bedside in detail. 03/06/2018 Patient is currently sitting in a chair. Tolerating oral diet. Still having dyspnea at rest. Currently on nasal cannula oxygen. Continued on IV Lasix drip and pressor support has been discontinued. Patient was started on Diamox due to elevated CO2 level. Chest x-ray showed cardiomegaly and bilateral pleural effusion. Chest ultrasound was done and pulmonary is planning for thoracentesis.. Pulmonary and cardiology is following. Cardiology is evaluating for aortic valve replacement. Current medications reviewed. Active Medications Acetaminophen (Tylenol Tab) 650 mg PO Q4HR PRN PRN Reason: Fever and/or Mild Pain Albuterol/Ipratropium (Duoneb 0.5 Mg-3 Mg/3 Ml Soln) 3 ml INHALATION RT-Q2H PRN PRN Reason: Shortness Of Breath Or Wheezing Albuterol/Ipratropium (Duoneb 0.5 Mg-3 Mg/3 Ml Soln) 3 ml INHALATION RT-Q4H [facility] Last Admin: 03/06/19 20:40 Dose: 3 ml Documented by: Apixaban (Eliquis) 5 mg PO BID [facility] Last Admin: 03/06/19 20:50 Dose: 5 mg Documented by: Aspirin (Aspirin) 81 mg PO DAILY [facility] Last Admin: 03/06/19 10:27 Dose: 81 mg Documented by: Atorvastatin Calcium (Lipitor) 20 mg PO HS [facility] Last Admin: 03/06/19 20:50 Dose: 20 mg Documented by: Cefepime HCl 2 gm/ Sodium (Chloride) 100 mls @ 200 mls/hr IVPB Q12HR [facility] Last Admin: 03/06/19 20:50 Dose: 200 mls/hr Documented by: Sodium Chloride (Saline 0.9%) 1,000 mls @ 20 mls/hr IV .Q24H [facility] Last Admin: 03/06/19 20:54 Dose: 20 mls/hr Documented by: Furosemide 100 mg/ Sodium (Chloride) 100 mls @ 5 mls/hr IV .Q20H [facility] Last Admin: 03/06/19 16:42 Dose: 5 mg/hr, 5 mls/hr Documented by: Norepinephrine Bitartrate 32 (mg/ Sodium Chloride) 250 mls @ 2.564 mls/hr IV .Q24H [facility]; Protocol Last Titration: 03/06/19 16:43 Dose: 0.04 mcg/kg/min, 2.051 mls/hr Documented by: Diltiazem HCl 125 mg/ Sodium (Chloride) 125 mls @ 5 mls/hr IV .Q24H [facility] Last Admin: 03/06/19 03:39 Dose: 5 mg/hr, 5 mls/hr Documented by: Insulin Aspart (Novolog) 0 unit SQ Q6H [facility]; Protocol Last Admin: 03/06/19 23:48 Dose: Not Given Documented by: Levetiracetam (Keppra) 500 mg PO Q12HR [facility] Last Admin: 03/06/19 20:49 Dose: 500 mg Documented by: Metoprolol Tartrate (Lopressor) 25 mg PO BID [facility] Last Admin: 03/06/19 20:50 Dose: 25 mg Documented by: Miscellaneous Information (Potassium Per Protocol) 1 each MISCELLANE DAILY PRN; Protocol PRN Reason: Per Protocol Miscellaneous Information (Potassium Per Protocol) 1 each MISCELLANE DAILY PRN; Protocol PRN Reason: Per Protocol Naloxone HCl (Narcan) 0.2 mg IV Q2M PRN PRN Reason: Opioid Reversal Pantoprazole Sodium (Protonix) 40 mg IV DAILY [facility] Last Admin: 03/06/19 10:34 Dose: 40 mg Documented by: Spironolactone (Aldactone) 25 mg PO BID [facility] Last Admin: 03/06/19 20:49 Dose: 25 mg Documented by: Objective - Vital Signs Vital signs: Vital Signs Temp 98.1 F 03/06/19 04:00 Pulse 86 03/06/19 09:05 Resp 20 03/06/19 01:00 BP 113/67 03/06/19 07:00 Pulse Ox 89 L 03/06/19 06:30 Intake & Output 03/05/19 03/06/19 03/06/19 18:59 06:59 18:59 Intake Total 656.692 787.000 20 Output Total 1855 885 170 Balance -1198.308 -98.000 -150 Weight 104.6 kg Intake: IV 350 340 20 0.9 Normal Saline 30 Cefepime 2 gm In Sodium 100 100 Chloride 0.9% 100 ml @ 200 mls/hr IVPB Q12HR [facility] Rx#:[id number] Sodium Chloride 0.9% 1, 220 240 20 000 ml @ 20 mls/hr IV . Q24H [facility] Rx#:[id number] Intake, IV Titration 140.692 207.000 Amount Diltiazem 125 mg In 107.083 Sodium Chloride 0.9% 100 ml @ 5 MG/HR 5 mls/hr IV .Q24H [facility] Rx#:[id number] Furosemide 100 mg In 99.917 Sodium Chloride 0.9% 90 ml @ 5 MG/HR 5 mls/hr IV .Q20H [facility] Rx#:[id number] Norepinephrine 32 mg In 140.276 0 Sodium Chloride 0.9% 218 ml @ 0.05 MCG/KG/MIN 2. 564 mls/hr IV .Q24H [facility] Rx#:[id number] Propofol 1,000 mg In 0.416 Empty Bag 1 bag @ Titrate IV .Q0M [facility] Rx#: [id number] Oral 240 Tube Feeding 136 Other 30 Output: Urine 1855 885 170 Other: Voiding Method Indwelling Catheter Indwelling Catheter ABP, PAP, CO, CI - Last Documented Arterial Blood Pressure 112/61 - Exam PHYSICAL EXAMINATION: Patient is lying in the bed comfortably, no acute distress, awake alert and oriented.. HEENT: Normocephalic. Neck is supple. Pupils reactive. Nostrils clear. Oral cavity is moist. Ears reveal no drainage. Neck reveals no JVD, carotid bruits, or thyromegaly. CHEST EXAMINATION: Trachea is central. Symmetrical expansion. Bibasilar diminished breath sounds at crackles.. CARDIAC: Normal S1, S2 with no gallops. No murmurs ABDOMEN: Soft. Bowel sounds normal. No organomegaly. No abdominal bruits. Extremities: 2+ edema. No clubbing or cyanosis Neurologically awake, alert, oriented x3 with well-coordinated movements. No focal deficits noted Skin: No rash or skin lesions. Psychiatric: Coperative. Nonsuicidal Musculoskeletal: No joint swelling or deformity. Normal range of motion. - Labs CBC & Chem 7: 03/06/19 06:00 03/06/19 06:00 Labs: Abnormal Lab Results - Last 24 Hours (Table) 03/05/19 03/05/19 03/05/19 Range/Units 11:30 11:57 18:31 Plt Count (150-450) k/uL Lymphocytes # (1.0-4.8) k/uL ABG pH 7.46 H (7.35-7.45) ABG pCO2 48 H (35-45) mmHg ABG pO2 65 L (83-108) mmHg ABG HCO3 34 H (21-25) mmol/L ABG Total CO2 35 H (19-24) mmol/L ABG O2 Saturation 93.0 L (94-97) % Carbon Dioxide (22-30) mmol/L BUN (9-20) mg/dL Glucose (74-99) mg/dL POC Glucose (mg/dL) 157 H 130 H (75-99) mg/dL 03/06/19 03/06/19 03/06/19 Range/Units 00:06 06:00 06:00 Plt Count 118 L (150-450) k/uL Lymphocytes # 0.6 L (1.0-4.8) k/uL ABG pH (7.35-7.45) ABG pCO2 (35-45) mmHg ABG pO2 (83-108) mmHg ABG HCO3 (21-25) mmol/L ABG Total CO2 (19-24) mmol/L ABG O2 Saturation (94-97) % Carbon Dioxide 34 H (22-30) mmol/L BUN 28 H (9-20) mg/dL Glucose 135 H (74-99) mg/dL POC Glucose (mg/dL) 125 H (75-99) mg/dL 03/06/19 Range/Units 06:22 Plt Count (150-450) k/uL Lymphocytes # (1.0-4.8) k/uL ABG pH (7.35-7.45) ABG pCO2 (35-45) mmHg ABG pO2 (83-108) mmHg ABG HCO3 (21-25) mmol/L ABG Total CO2 (19-24) mmol/L ABG O2 Saturation (94-97) % Carbon Dioxide (22-30) mmol/L BUN (9-20) mg/dL Glucose (74-99) mg/dL POC Glucose (mg/dL) 120 H (75-99) mg/dL Microbiology - Last 24 Hours (Table) 03/04/19 12:20 Gram Stain - Final Sputum Sputum Culture - Final 03/01/19 19:04 Blood Culture - Preliminary Blood No Growth after 96 hours Assessment and Plan Assessment: acute hypoxic respiratory failure secondary to pulmonary edema. Improved now. Acute on chronic CHF due diastolic dysfunction. underlying severe aortic stenosis Bilateral pleural effusion severe aortic stenosis elevated troponin levellikely due to CHF. Possible non-ST elevated OR Lactic acidosis resolved Acute kidney injury with creatinine level I.48 on admission. Improved to 0.96 today. Chronic atrial fibrillation on anticoagulation on Eliquis at home.was on hold due to hematuria but restarted after urology clearance. Hematuria improved. Seen by urology. Hypovolemic/cardiogenic shock requiring pressors support Previous history of CVA history of seizures Prostate cancer status post radiation therapy Hyperlipidemia Hypertension plan: Patient is being continued on Lasix drip . Currently off pressor support. Critical care team is following. Monitor H&H and renal function. Continued on empiric antibiotics in the form of cefepime. Follow closely and further recommendations based on the clinical course. Cardiology is on board.prognosis is guarded. Time with Patient: Greater than 30
[2019-03-07] MEDS: IPRATROPIUM-ALBUTEROL 3 ML NEB INHALATION SCH ×8 (00:54→23:18)
[2019-03-07] MEDS: FUROSEMIDE 100 MG in SODIUM CHLORIDE 0.9% 90 ML IV SCH ×2 (04:05→21:40)
[2019-03-07] MEDS: DILTIAZEM 125 MG in SODIUM CHLORIDE 0.9% 100 ML IV SCH (04:05)
[2019-03-07] MEDS: INSULIN ASPART (NovoLOG) 100 UNIT/ML VIAL SQ SCH ×4 (05:52→23:50)
[2019-03-07 06:01] LABS: Glucose,Whole Blood 107 mg/dL (75-99)
[2019-03-07 06:13] LABS: Calcium 8.6 mg/dL (8.4-10.2); Potassium 3.9 mmol/L (3.5-5.1)
[2019-03-07 06:20] LABS: Basophils # (A) 0.1 k/uL (0-0.2); Basophils % (A) 1 %; Eosinophils # (A) 0.3 k/uL (0-0.7); Eosinophils % (A) 5 %; HCT 46.6 % (39.0-53.0); HGB 14.6 gm/dL (13.0-17.5); Hypochromasia Moderate; Lymphocytes # (A) 0.6 k/uL (1.0-4.8); Lymphocytes % (A) 9 %; MCH 29.7 pg (25.0-35.0); MCHC 31.4 g/dL (31.0-37.0); MCV 94.4 fL (80.0-100.0); Mean Platelet Volume 10.8; Monocytes # (A) 0.7 k/uL (0-1.0); Monocytes % (A) 10 %; Neutrophils # (A) 4.9 k/uL (1.3-7.7); Neutrophils % (A) 72 %; Platelet Count 108 k/uL (150-450); RBC 4.93 m/uL (4.30-5.90); RDW 15.1 % (11.5-15.5); WBC 6.9 k/uL (3.8-10.6)
[2019-03-07] MEDS ORDERED: POTASSIUM CHLORIDE ER 20 MEQ TAB.ER PO ONE (07:00)
[2019-03-07] MEDS: PANTOPRAZOLE 40 MG/10 ML VIAL IV SCH (08:04)
[2019-03-07] MEDS: SPIRONOLACTONE 25 MG TAB PO SCH ×2 (08:04→20:26)
[2019-03-07] MEDS: METOPROLOL TARTRATE 25 MG TAB PO SCH ×3 (08:04→20:26)
[2019-03-07] MEDS: APIXABAN 5 MG TAB PO SCH ×2 (08:04→20:27)
[2019-03-07] MEDS: ASPIRIN 81 MG PO SCH (08:04)
[2019-03-07] MEDS: levETIRAcetam 500 MG TAB PO SCH ×2 (08:04→20:27)
[2019-03-07] MEDS: CEFEPIME 2 GM in SODIUM CHLORIDE 0.9% 100 ML IVPB SCH ×2 (08:05→20:27)
--- NOTE | 2019-03-07 08:49 | XR ---
EXAMINATION TYPE: XR chest 1V portable DATE OF EXAM: 03/07/2019 COMPARISON: 03/06/2019 HISTORY: Shortness of breath FINDINGS: Noted is pulmonary venous congestion with scattered infiltrates. There is also cardiomegaly and small effusions. 6 left subclavian central venous line unchanged in po sition. IMPRESSION: Findings compatible with stable congestive failure. Infiltrates of other etiology are not excluded. Clinical correlation and progress studies are recommended.
--- NOTE | 2019-03-07 09:15 | P.PN ---
Subjective Progress Note Date: 03/07/19 This is a 79-year-old gentleman with history of severe aortic stenosis who was admitted to the hospital with significant pulmonary edema. Patient is still intubated. Patient is diuresing well. IV Lasix was cut back to 5 mg yesterday. He is also on IV Cardizem drip. He responds to verbal stimuli. Chest x-ray showed some infiltrates. We'll continue with IV Lasix drip and also Cardizem until patient is extubated. Subsequently open switch medication to by mouth diuretics and the Cardizem. Patient eventually may need cardiac catheterization and also possible aortic valve replacement. 03/06/2019: This patient with severe aortic stenosis was admitted with CHF and pulmonary edema. Patient is extubated. He is a sitting up and seemed to be slightly lethargic but easily arousable. Doesn't appear to be in acute distress. Patient is on IV Lasix and diuresing well. His CO2 is going up and patient was initiated on Diamox by the global manager. Patient is going to have an ultrasound of the chest to see if there is a fluid with that could be tapped. Patient is [place] fibrillation. Chest x-ray showed cardiomegaly and bilateral pleural effusion and findings of CHF. We'll continue current medical therapy including IV Lasix. Patient may need further evaluation and possible aortic valve replacement. Prognosis is guarded. 03/07/2019: Patient remains relatively stable. He is a sitting up in the chair, alert and oriented and doesn't appear to be in acute distress. He is in atrial fibrillation with controlled and corresponds. Patient is on Eliquis and also IV Cardizem and metoprolol. He is also on IV Lasix drip and Aldactone. I'm going to discontinue IV Cardizem and increase the dose of the metoprolol to 25 mg by mouth 3 times a day. His blood pressure is about 110/70. I discussed with him about aortic stenosis and need for possible valve replacement. At this point, patient wants to think about it. Probably can be taken off the IV Lasix and started on bolus of IV Lasix or by mouth Lasix. Increase activity as tolerated. When patient is gradient discussed with Dr. Sales regarding doing a cardiac catheterization. Objective - Vital Signs Vital signs: Vital Signs Temp 97.7 F 03/07/19 08:00 Pulse 78 03/07/19 08:16 Resp 12 03/07/19 08:00 BP 96/64 03/07/19 08:00 Pulse Ox 97 03/07/19 08:00 Intake & Output 03/06/19 03/07/19 03/07/19 18:59 06:59 18:59 Intake Total 791.795 499.084 140 Output Total 1870 2075 275 Balance -1078.205 -1575.916 -135 Weight 104.6 kg 103 kg Intake: IV 360 320 140 Cefepime 2 gm In Sodium 100 100 100 Chloride 0.9% 100 ml @ 200 mls/hr IVPB Q12HR [facility] Rx#:[id number] Sodium Chloride 0.9% 1, 260 220 40 000 ml @ 20 mls/hr IV . Q24H [facility] Rx#:[id number] Intake, IV Titration 131.795 179.084 Amount Diltiazem 125 mg In 122.167 Sodium Chloride 0.9% 100 ml @ 5 MG/HR 5 mls/hr IV .Q24H [facility] Rx#:[id number] Furosemide 100 mg In 100 56.917 Sodium Chloride 0.9% 90 ml @ 5 MG/HR 5 mls/hr IV .Q20H [facility] Rx#:[id number] Norepinephrine 32 mg In 31.795 Sodium Chloride 0.9% 218 ml @ 0.05 MCG/KG/MIN 2. 564 mls/hr IV .Q24H [facility] Rx#:[id number] Oral 300 Output: Urine 1870 2075 275 Other: Voiding Method Indwelling Catheter Indwelling Catheter ABP, PAP, CO, CI - Last Documented Arterial Blood Pressure 107/51 - Exam GENERAL EXAM: Patient is intubated but follows commands HEENT: Normocephalic. Normal reaction of pupils, equal size, normal range of extraocular motion. No erythema or exudates in the throat. NECK: No masses, no nuchal rigidity. CHEST: No chest wall deformity. LUNGS: Diminished breath sounds at both bases HEART: S1 and S2 normal ABDOMEN: Soft SKIN: No rashes CENTRAL NERVOUS SYSTEM: No focal deficits. EXTREMITIES: No cyanosis, clubbing or edema. - Labs CBC & Chem 7: 03/07/19 05:05 03/07/19 05:05 Labs: Abnormal Lab Results - Last 24 Hours (Table) 03/06/19 03/06/19 03/07/19 Range/Units 12:01 23:47 05:05 Plt Count (150-450) k/uL Lymphocytes # (1.0-4.8) k/uL Sodium 136 L (137-145) mmol/L Carbon Dioxide 32 H (22-30) mmol/L BUN 28 H (9-20) mg/dL Glucose 111 H (74-99) mg/dL POC Glucose (mg/dL) 175 H 122 H (75-99) mg/dL 03/07/19 03/07/19 Range/Units 05:05 05:50 Plt Count 108 L (150-450) k/uL Lymphocytes # 0.6 L (1.0-4.8) k/uL Sodium (137-145) mmol/L Carbon Dioxide (22-30) mmol/L BUN (9-20) mg/dL Glucose (74-99) mg/dL POC Glucose (mg/dL) 107 H (75-99) mg/dL Microbiology - Last 24 Hours (Table) 03/01/19 19:04 Blood Culture - Preliminary Blood No Growth after 120 hours 03/04/19 12:20 Gram Stain - Final Sputum Sputum Culture - Final Assessment and Plan (1) Pulmonary edema Current Visit: Yes Status: Acute Code(s): J81.1 - CHRONIC PULMONARY EDEMA SNOMED Code(s): 13308263 (2) Severe aortic stenosis Current Visit: Yes Status: Acute Code(s): I35.0 - NONRHEUMATIC AORTIC (VALVE) STENOSIS SNOMED Code(s): 61849903 (3) Chronic a-fib Current Visit: No Status: Acute Code(s): I48.2 - CHRONIC ATRIAL FIBRILLATION * DO NOT USE * SNOMED Code(s): 230389030 (4) HTN (hypertension) Current Visit: No Status: Acute Code(s): I10 - ESSENTIAL (PRIMARY) HYPERTENSION SNOMED Code(s): 16769510 Plan: Patient seemed to be clinically stable. Chest x-ray shows improvement. In atrial fibrillation with controlled ventricular response with stable blood pressure. I'm going to discontinue IV Cardizem and increase the dose of the metoprolol. Discussed with the patient about a cardiac catheterization and aortic valve replacement. Patient wants to think about it
--- NOTE | 2019-03-07 11:44 | P.PN ---
Subjective Progress Note Date: 03/07/19 Principal diagnosis: Acute hypoxic respiratory failure secondary to congestive heart failure, secondary to severe aortic stenosis severe mitral regurgitation, preserved LV function. on 03/06/2019 the patient is extubated and currently is on oxygen at 8 L per minute nasal cannula with a pulse ox of 93%. He is on a Lasix drip at 5 mg an hour. He continues to make excellent urine output and he is net fluid balance over the past 24 hours is been - 1.3 L. Nevertheless, despite ongoing diuresis, the chest x-ray still showing Ludy megaly and worsening in CHF. As mentioned earlier, the patient has severe aortic stenosis. He is still in atrial fibrillation. Norepinephrine infusion is being utilized for blood pressure control and currently is running at 0.06 units per KG per minute. His serum bicarb is up and on his blood gases he has developed some metabolic alkalosis. Serum bicarbonate was up to 34. I'm going to give him 2 doses of Diamox for now. Otherwise, he is weak. He is awake. Is following commands. He did have dinner yesterday and he did have breakfast this morning. No fever. No chills. Will be given an incentive spirometer.As mentioned earlier, the patient has severe aortic stenosis. He has a valve area of 0.5 cm. His ejection fraction is within normal limits with an EF of around 50-55%. He has severe pulmonary hypertension with a PA Jenny of 67. He remains on IV cefepime. This is empiric antibiotic coverage. No fever. No chills Reevaluated today on 03/07/2019, patient remains in the intensive care unit, however his overall status remains marginal, he is on 15 L high flow nasal cannula, remains on Lasix at 5 mg per hour. Chest x-ray continues to show evidence of pulmonary edema and bilateral airspace disease. According to the patient is feeling much better today compared to the last few days, patient was extubated 2 days ago, and he seems to be tolerating the extubation well, but of course his overall pulmonary status is marginal. His urine output is excellent, hence I will keep him on Lasix at 5 mg per hour drip. Remains on antibiotics coverage empirically. CBC today is normal. Electrode was are normal. BUN is 28 creatinine is 1.10. Creatinine on admission was 1.48. Hence it seems to be improving in spite of aggressive diuresis. Objective - Vital Signs Vital signs: Vital Signs Temp 97.7 F 03/07/19 08:00 Pulse 85 03/07/19 11:20 Resp 20 03/07/19 11:00 BP 94/68 03/07/19 11:00 Pulse Ox 92 L 03/07/19 11:00 Intake & Output 03/06/19 03/07/19 03/07/19 18:59 06:59 18:59 Intake Total 791.795 499.084 229.25 Output Total 0 5 855 Balance -1078.205 -1575.916 -625.75 Weight 104.6 kg 103 kg Intake: IV 360 320 200 Cefepime 2 gm In Sodium 100 100 100 Chloride 0.9% 100 ml @ 200 mls/hr IVPB Q12HR [facility] Rx#:[id number] Sodium Chloride 0.9% 1, 260 220 100 000 ml @ 20 mls/hr IV . Q24H [facility] Rx#:[id number] Intake, IV Titration 131.795 179.084 29.25 Amount Diltiazem 125 mg In 122.167 29.25 Sodium Chloride 0.9% 100 ml @ 5 MG/HR 5 mls/hr IV .Q24H [facility] Rx#:[id number] Furosemide 100 mg In 100 56.917 Sodium Chloride 0.9% 90 ml @ 5 MG/HR 5 mls/hr IV .Q20H [facility] Rx#:[id number] Norepinephrine 32 mg In 31.795 Sodium Chloride 0.9% 218 ml @ 0.05 MCG/KG/MIN 2. 564 mls/hr IV .Q24H [facility] Rx#:[id number] Oral 300 Output: Urine 0 5 855 Other: Voiding Method Indwelling Catheter Indwelling Catheter Indwelling Catheter ABP, PAP, CO, CI - Last Documented Arterial Blood Pressure 112/58 - Exam Physical Exam: Revealed 79-year-old white male, on 15 L high flow nasal cannula, comfortable, in no distress. Head: Atraumatic normocephalic. HEENT:[Neck is supple.] [No neck masses.] [No thyromegaly.] [No JVD.] PERRLA, EOMI, no icterus. Chest: [Symmetrical chest expansion, crackles at the bases.. No rhonchi, no wheezes.] Cardiac Exam: [Irregular irregular rhythm, normal S1 and S2, 3/6 systolic murmur at the left lower sternal border. Radiating to the neck. Likely secondary to aortic stenosis. Abdomen: [Obese, Soft, nontender, no megaly, no rebound, no guarding, normal bowel sounds.] Extremities: [No clubbing, 1+ bipedal edema, no cyanosis.] Neurological Exam: Alert oriented 3, chronic left-sided weakness noted related to previous CVA, patient has left-sided hemiparesis. Skin: No rashes. Psychiatric: Normal mood, affect and normal mental status examination. - Labs CBC & Chem 7: 03/07/19 05:05 03/07/19 05:05 Labs: Abnormal Lab Results - Last 24 Hours (Table) 03/06/19 03/06/19 03/07/19 Range/Units 12:01 23:47 05:05 Plt Count (150-450) k/uL Lymphocytes # (1.0-4.8) k/uL Sodium 136 L (137-145) mmol/L Carbon Dioxide 32 H (22-30) mmol/L BUN 28 H (9-20) mg/dL Glucose 111 H (74-99) mg/dL POC Glucose (mg/dL) 175 H 122 H (75-99) mg/dL 03/07/19 03/07/19 Range/Units 05:05 05:50 Plt Count 108 L (150-450) k/uL Lymphocytes # 0.6 L (1.0-4.8) k/uL Sodium (137-145) mmol/L Carbon Dioxide (22-30) mmol/L BUN (9-20) mg/dL Glucose (74-99) mg/dL POC Glucose (mg/dL) 107 H (75-99) mg/dL Microbiology - Last 24 Hours (Table) 03/01/19 19:04 Blood Culture - Preliminary Blood No Growth after 120 hours 03/04/19 12:20 Gram Stain - Final Sputum Sputum Culture - Final Assessment and Plan Assessment: Impression: Acute hypoxic respiratory failure secondary to pulmonary edema secondary to severe valvular heart disease including aortic stenosis and mitral regurgitation. Preserved LV function noted on the echocardiogram. Severe aortic stenosis and severe mitral regurgitation. Possible non-ST segment elevation myocardial infarction with elevated troponin. Acute lactic acidosis secondary to above. Chronic atrial fibrillation, on Eliquis. History of CVA. With left-sided weakness. History of seizure disorder, on Keppra. Benign essential hypertension. History of prostate cancer and previous radiation therapy Acute kidney injury, cardiorenal in nature, improved since admission. Transient hematuria, resolved by holding Eliquis. Acute metabolic alkalosis secondary to diuretics, hence Diamox was added. Recommendation: Continue present supportive care measures. Continue Lasix drip at 5 mg per hour. Continue Diamox at 250 mg IV push every 12 hours. Continue incentive spirometry. Ultrasound of the chest was reviewed, not much fluid to be drained. Continue to monitor the patient in the ICU Continue to titrate oxygen down, presently on 15 L high flow. Overall prognosis remains extremely poor and guarded, we'll continue to follow. Time with Patient: Less than 30
--- NOTE | 2019-03-07 13:38 | CDI ---
Documentation Clarification Form Date: 03/07/2019 12:51:08 PM From: Marilyn Mclain RN, CCDS Admit Date: 03/01/2019 08:00:00 PM Patient Name: Usman Martin Visit Number: [id number] Discharge Date: ATTENTION: The Clinical Documentation Specialists (CDI) and [facility] Coding Staff appreciate your assistance in clarifying documentation. Please respond to the clarification below the line at the bottom and electronically sign. The CDI & [facility] Coding staff will review the response and follow-up if needed. Please note: Queries are made part of the Legal Health Record. If you have any questions, please contact the author of this message via ITS. Dr. Evan Mary Altered Mental Status was documented in the emergency room assessment and further clarification is needed. History/Risk Factors: Atrial Fibrillation, Heart Failure, CVA, Hypertension, Former smoker Clinical Indicators: 79-year-old male having increased fluid retention over the last 3 days present for weakness apnea, and altered mental status. On exam in the emergency center he was obtunded, responsive to voice and painful stimuli, shallow slow breathing, pale and cyanotic. Patient is severely altered with depressed GCS 14 Vital signs 03/01/19@ 7:53 95/71 91 10 77 % On admission Labs: WBC 9.9, ABG: pH 7.35, 7.33 pCO2 53, 52, pO2 61, 56, HCO3 29, 27; VBG pH 7.16, VBG pCO2 77; BUN 40, CR 1.48, Lactic acid 9.2, 3.6, Mg+ 2.9, Trooping I 0.054, UA small Leukocyte Esterase Chest x-ray: Advanced interstitial and alveolar phase pulmonary edema, presumably cardiogenic etiology, with bilateral pleural effusions: CT Brain: No definite acute process Treatment: ICU monitoring IV Propofol for sedation Mechanical vent support (pulmonary management) monitor blood gases Levophed drip, IV Fluid Bolus Lasix IV Monitor blood pressure and urine output creatinine and electrolytes In your professional opinion, please clarify the etiology of the Altered Mental Status, if known. Metabolic Encephalopathy (specify Underlying Medical Illness) Hypoxic Encephalopathy (specify underlying medical illness Other condition (please specify) Unable to determine (Last Revision: June 2017) Hypoxic encephalopathy due to atrial fibrillation and congestive heart failure causing extreme hypoxia with bilateral pleural effusions. [facility]
[2019-03-07] MEDS: NOREPINEPHRINE 32 MG in SODIUM CHLORIDE 0.9% 218 ML IV SCH (13:49)
[2019-03-07 17:04] LABS: Glucose,Whole Blood 138 mg/dL (75-99)
[2019-03-07] MEDS: ATORVASTATIN 20 MG TAB PO SCH (20:26)
--- NOTE | 2019-03-07 21:29 | P.PN ---
Subjective Progress Note Date: 03/07/19 Principal diagnosis: acute hypoxic respiratory failure secondary to pulmonary edema/acute CHF. patient a pleasant 79-year-old white male admitted through the emergency department into the ICU for acute respiratory failure and pulmonary edema he is currently on a ventilator with IV sedation. 03/03/2019 remains ventilator dependent with FiO2 50%/+12 of PEEP. chest x-ray reporting small pleural effusions with bibasilar atelectasis/consolidation. sputum culture pending.Continues on Diprovan, Cardizem, Lasix and Levophed drips.telemetry atrial fib.Cardizem dose increased as per cardiology with a dose of digoxin.creatinine 1.26.Echo reporting the low-normal LV function, EF 50-55%, moderate to severe aortic stenosis, moderate to severe mitral and tricuspid regurgitation, moderate to severe pulmonary hypertension.afebrile. 03/04/2019 chest x-ray continues to report pulmonary edema. ABGs noted. remains vent dependent, FiO2 40% with PEEP down to +12. Telemetry atrial fibrillation .Continues on to prevent, Cardizem, Lasix and Levophed drips. Developed hematuria throughout the night, urology consulted, aspirin and Eliquis on hold. Tube feeds initiated during the night via OG, tolerating well with minimal to no residuals. Maintained on empiric cefepime .Afebrile. 03/05/2019 patient was admitted to hospital with acute hypoxic respiratory failure secondary to pulmonary edema, severe aortic stenosis. Patient remained on mechanical ventilatorand sedated.. Currently being continued onIV Lasix and is also on pressor support with Levophed. Patient is diuresing well. 2-D echocardiogram showed ejection fraction 50-55% and severe pulmonary hypertension with pulmonary arterial pressure of 67. Otherwise patient did have hematuria for which urology has seen the patient and recommends outpatient cystoscopy and no active bleeding currently. He is also on IV Cardizem drip. Patient is receiving NG tube feedings. WBC 9.5 and hemoglobin 15.7 bicarb is 32 and creatinine level is 0.9.patient is also on empiric antibiotics in the form of cefepime. Discussed with his at bedside in detail. 03/06/2018 Patient is currently sitting in a chair. Tolerating oral diet. Still having dyspnea at rest. Currently on nasal cannula oxygen. Continued on IV Lasix drip and pressor support has been discontinued. Patient was started on Diamox due to elevated CO2 level. Chest x-ray showed cardiomegaly and bilateral pleural effusion. Chest ultrasound was done and pulmonary is planning for thoracentesis.. Pulmonary and cardiology is following. Cardiology is evaluating for aortic valve replacement. 03/07/2019 patient is currently sitting in the chair. Shortness of breath at rest. Currentlybeing continued on Lasix drip. patient does have good urine output. Oxygen requirement at 15 Lhigh flow nasal cannula. Chest x-ray showed pulmonary edema and bilateral air space disease.currently on empiric antibiotics in the form of cefepime. No leukocytosis is now. Patient is afebrile. Current medications reviewed. Active Medications Acetaminophen (Tylenol Tab) 650 mg PO Q4HR PRN PRN Reason: Fever and/or Mild Pain Albuterol/Ipratropium (Duoneb 0.5 Mg-3 Mg/3 Ml Soln) 3 ml INHALATION RT-Q2H PRN PRN Reason: Shortness Of Breath Or Wheezing Albuterol/Ipratropium (Duoneb 0.5 Mg-3 Mg/3 Ml Soln) 3 ml INHALATION RT-Q4H [facility] Last Admin: 03/07/19 19:42 Dose: 3 ml Documented by: Apixaban (Eliquis) 5 mg PO BID [facility] Last Admin: 03/07/19 20:27 Dose: 5 mg Documented by: Aspirin (Aspirin) 81 mg PO DAILY [facility] Last Admin: 03/07/19 08:04 Dose: 81 mg Documented by: Atorvastatin Calcium (Lipitor) 20 mg PO HS [facility] Last Admin: 03/07/19 20:26 Dose: 20 mg Documented by: Cefepime HCl 2 gm/ Sodium (Chloride) 100 mls @ 200 mls/hr IVPB Q12HR [facility] Last Admin: 03/07/19 20:27 Dose: 200 mls/hr Documented by: Sodium Chloride (Saline 0.9%) 1,000 mls @ 20 mls/hr IV .Q24H [facility] Last Admin: 03/06/19 20:54 Dose: 20 mls/hr Documented by: Furosemide 100 mg/ Sodium (Chloride) 100 mls @ 5 mls/hr IV .Q20H [facility] Last Admin: 03/07/19 04:05 Dose: 5 mg/hr, 5 mls/hr Documented by: Norepinephrine Bitartrate 32 (mg/ Sodium Chloride) 250 mls @ 2.564 mls/hr IV .Q24H [facility]; Protocol Last Admin: 03/07/19 13:49 Dose: Not Given Documented by: Insulin Aspart (Novolog) 0 unit SQ Q6H [facility]; Protocol Last Admin: 03/07/19 17:00 Dose: 1 unit Documented by: Levetiracetam (Keppra) 500 mg PO Q12HR [facility] Last Admin: 03/07/19 20:27 Dose: 500 mg Documented by: Metoprolol Tartrate (Lopressor) 25 mg PO TID [facility] Last Admin: 03/07/19 20:26 Dose: 25 mg Documented by: Miscellaneous Information (Potassium Per Protocol) 1 each MISCELLANE DAILY PRN; Protocol PRN Reason: Per Protocol Miscellaneous Information (Potassium Per Protocol) 1 each MISCELLANE DAILY PRN; Protocol PRN Reason: Per Protocol Naloxone HCl (Narcan) 0.2 mg IV Q2M PRN PRN Reason: Opioid Reversal Pantoprazole Sodium (Protonix) 40 mg IV DAILY [facility] Last Admin: 03/07/19 08:04 Dose: 40 mg Documented by: Spironolactone (Aldactone) 25 mg PO BID [facility] Last Admin: 03/07/19 20:26 Dose: 25 mg Documented by: Objective - Vital Signs Vital signs: Vital Signs Temp 98.3 F 03/07/19 16:00 Pulse 86 03/07/19 16:22 Resp 22 03/07/19 16:00 BP 105/63 03/07/19 16:00 Pulse Ox 90 L 03/07/19 16:00 Intake & Output 03/06/19 03/07/19 03/07/19 18:59 06:59 18:59 Intake Total 791.795 499.084 329.25 Output Total 1870 9165 1400 Balance -1078.205 -1575.916 -1070.75 Weight 104.6 kg 103 kg Intake: IV 360 320 300 Cefepime 2 gm In Sodium 100 100 100 Chloride 0.9% 100 ml @ 200 mls/hr IVPB Q12HR [facility] Rx#:[id number] Sodium Chloride 0.9% 1, 260 220 200 000 ml @ 20 mls/hr IV . Q24H [facility] Rx#:[id number] Intake, IV Titration 131.795 179.084 29.25 Amount Diltiazem 125 mg In 122.167 29.25 Sodium Chloride 0.9% 100 ml @ 5 MG/HR 5 mls/hr IV .Q24H [facility] Rx#:[id number] Furosemide 100 mg In 100 56.917 Sodium Chloride 0.9% 90 ml @ 5 MG/HR 5 mls/hr IV .Q20H [facility] Rx#:[id number] Norepinephrine 32 mg In 31.795 Sodium Chloride 0.9% 218 ml @ 0.05 MCG/KG/MIN 2. 564 mls/hr IV .Q24H [facility] Rx#:[id number] Oral 300 Output: Urine 1870 2075 1400 Other: Voiding Method Indwelling Catheter Indwelling Catheter Indwelling Catheter ABP, PAP, CO, CI - Last Documented Arterial Blood Pressure 156/66 - Exam PHYSICAL EXAMINATION: Patient is lying in the bed comfortably, no acute distress, awake alert and oriented.lethargic and weak. HEENT: Normocephalic. Neck is supple. Pupils reactive. Nostrils clear. Oral cavity is moist. Ears reveal no drainage. Neck reveals no JVD, carotid bruits, or thyromegaly. CHEST EXAMINATION: Trachea is central. Symmetrical expansion. Bibasilar diminished breath sounds nd crackles.. CARDIAC: Normal S1, S2 with no gallops. No murmurs ABDOMEN: Soft. Bowel sounds normal. No organomegaly. No abdominal bruits. Extremities: 2+ edema. No clubbing or cyanosis Neurologically awake, alert, oriented x3 with well-coordinated movements. No focal deficits noted Skin: No rash or skin lesions. Psychiatric: Coperative. Nonsuicidal Musculoskeletal: No joint swelling or deformity. Normal range of motion. - Labs CBC & Chem 7: 03/07/19 05:05 03/07/19 05:05 Labs: Abnormal Lab Results - Last 24 Hours (Table) 03/06/19 03/07/19 03/07/19 Range/Units 23:47 05:05 05:05 Plt Count 108 L (150-450) k/uL Lymphocytes # 0.6 L (1.0-4.8) k/uL Sodium 136 L (137-145) mmol/L Carbon Dioxide 32 H (22-30) mmol/L BUN 28 H (9-20) mg/dL Glucose 111 H (74-99) mg/dL POC Glucose (mg/dL) 122 H (75-99) mg/dL 03/07/19 03/07/19 Range/Units 05:50 16:52 Plt Count (150-450) k/uL Lymphocytes # (1.0-4.8) k/uL Sodium (137-145) mmol/L Carbon Dioxide (22-30) mmol/L BUN (9-20) mg/dL Glucose (74-99) mg/dL POC Glucose (mg/dL) 107 H 138 H (75-99) mg/dL Microbiology - Last 24 Hours (Table) 03/01/19 19:04 Blood Culture - Preliminary Blood No Growth after 120 hours Assessment and Plan Assessment: acute hypoxic respiratory failure secondary to pulmonary edema. Improved now. Currently on high flow oxygen we are nasal Acute on chronic CHF due diastolic dysfunction. underlying severe aortic stenosis Bilateral pleural effusion severe aortic stenosis elevated troponin levellikely due to CHF. Possible non-ST elevated CO Lactic acidosis resolved Acute kidney injury with creatinine level I.48 on admission. Improved to 0.96 today. Chronic atrial fibrillation on anticoagulation on Eliquis at home.was on hold due to hematuria but restarted after urology clearance. Hematuria improved. Seen by urology. Hypovolemic/cardiogenic shock requiring pressors support Previous history of CVA history of seizures Prostate cancer status post radiation therapy Hyperlipidemia Hypertension plan: Patient is being continued on Lasix drip . Currently off pressor support. Critical care team is following. Monitor H&H and renal function. Continued on empiric antibiotics in the form of cefepime. Follow closely and further recommendations based on the clinical course. Cardiology is on board.prognosis is guarded. Time with Patient: Greater than 30
[2019-03-07 23:59] LABS: Glucose,Whole Blood 144 mg/dL (75-99)
[2019-03-08] MEDS: IPRATROPIUM-ALBUTEROL 3 ML NEB INHALATION SCH ×6 (03:17→23:54)
[2019-03-08] MEDS: INSULIN ASPART (NovoLOG) 100 UNIT/ML VIAL SQ SCH ×4 (05:53→20:50)
[2019-03-08 05:54] LABS: Glucose,Whole Blood 103 mg/dL (75-99)
[2019-03-08 05:54] LABS: Basophils % (A) 0 %; Eosinophils # (A) 0.4 k/uL (0-0.7); Eosinophils % (A) 5 %; HCT 46.3 % (39.0-53.0); HGB 14.9 gm/dL (13.0-17.5); Hypochromasia Moderate; Lymphocytes # (A) 0.7 k/uL (1.0-4.8); Lymphocytes % (A) 11 %; MCH 29.8 pg (25.0-35.0); MCHC 32.2 g/dL (31.0-37.0); MCV 92.5 fL (80.0-100.0); Mean Platelet Volume 10.1; Monocytes # (A) 0.7 k/uL (0-1.0); Monocytes % (A) 9 %; Neutrophils % (A) 70 %; Platelet Count 124 k/uL (150-450); RBC 5.01 m/uL (4.30-5.90); RDW 14.9 % (11.5-15.5); WBC 7.1 k/uL (3.8-10.6)
[2019-03-08 06:03] LABS: Calcium 8.9 mg/dL (8.4-10.2); Potassium 3.8 mmol/L (3.5-5.1)
[2019-03-08] MEDS: SODIUM CHLORIDE 0.9% 1,000 ML IV SCH ×2 (06:59→20:50)
[2019-03-08] MEDS ORDERED: POTASSIUM CHLORIDE ER 20 MEQ TAB.ER PO SCH (08:00)
--- NOTE | 2019-03-08 09:04 | P.CONS ---
History of Present Illness - Chief Complaint Walking difficulty - History of Present Illness I had the opportunity to see patient for inpatient rehab consultation with regard walking difficulty. He is admitted to [facility] March 01 with respiratory distress and failure for which is seen by Dr. Gomez. Chest x- rays followed and notes stable CHF. Initial head CT no acute disease process. Cardiac echo with concentric LVH, 50-55% ejection fraction and mitral and tricuspid regurg. PT reports two-person total assistance for bed mobility. OT reports two-person total assistance for upper dressing and bathing and 3 person total assist for lower dressing. Speech therapy assess well and recommend r egular and thin liquids. Nursing reports 3 person assist for transfer from bed to Yaquelin chair, left leg kareem. Previous functional history as elicited from patient: 69-year-old right-handed white male who is lives and 2 floor home with . Patient retired. does cooking, laundry, driving especially sensitive stroke 5 years ago. Patient describes independent with sitdown shower and gait with roller walker. Dr. Mary is regular doctor. Denies tobacco or alcohol. Review of Systems Review of systems: ENT: Denies sneezes or discharge. Eyes: Denies discharge or photophobia. Cardiac: Denies chest pain or palpitation. Pulmonary: Denies cough or shortness of breath. Gastrointestinal: Denies nausea, emesis, constipation, diarrhea. Genitourinary: Denies discharge or frequency. Musculoskeletal: Denies muscle or bone aches. Neurologic: Patient feels he is weak on both sides, but obviously left more so than right. Endocrine: Denies shakes or sweats. Oncology: Denies cancers. Dermatologic: Denies rash, itching, pruritus. ALLERGY/immunology: Denies sneezes, rashes. 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 History of Any Multi-Drug Resistant Organisms: None Reported Additional Past Surgical History / Comment(s): colonoscopy x3, Past Anesthesia/Blood Transfusion Reactions: No Reported Reaction Past Psychological History: No Psychological Hx Reported Smoking Status: Unknown if ever smoked Past Alcohol Use History: None Reported Past Drug Use History: None Reported - Past Family History Sister(s) Family Medical History: Diabetes Mellitus, Myocardial Infarction (CO) Additional Family Medical History / Comment(s): sister from an CO Mother Family Medical History: No Reported History Additional Family Medical History / Comment(s): multiple sclerosis Son(s) Family Medical History: Hypertension Father Additional Family Medical History / Comment(s): ETOH abuse Medications and Allergies Home Medications Medication Instructions Recorded Confirmed Type Simvastatin [Zocor] 40 mg PO HS 10/23/14 03/01/19 History Apixaban [Eliquis] 5 mg PO BID tab 11/09/14 03/01/19 Rx Metoprolol Succinate [Toprol XL] 100 mg PO HS 03/06/15 03/01/19 History Cholecalciferol [Vitamin D3 (25 1,000 unit PO DAILY 11/05/15 03/01/19 History Mcg = 1000 Iu)] Multivitamins, Thera [Multivitamin 1 tab PO DAILY 11/05/15 03/01/19 History (formulary)] amLODIPine BESYLATE/BENAZEPRIL 1 cap PO DAILY 11/05/15 03/01/19 History [amLODIPine BESYLATE/BENAZEPRIL 5-20 MG] Aspirin EC [Ecotrin Low Dose] 81 mg PO DAILY 03/20/16 03/01/19 History levETIRAcetam [Keppra] 500 mg PO Q12HR #60 tab 03/24/16 03/01/19 Rx Furosemide [Lasix] 40 mg PO DAILY #30 tablet 02/12/17 03/01/19 Rx Spironolactone [Aldactone] 25 mg PO HS 03/01/19 03/01/19 History Allergies Allergy/AdvReac Type Severity Reaction Status Date / Time No Known Allergies Allergy Verified 03/01/19 19:56 Physical Exam Vitals: Vital Signs Temp Pulse Resp BP Pulse Ox 03/08/19 08:00 92 18 119/52 94 L 03/08/19 07:51 90 03/08/19 07:38 82 03/08/19 07:00 85 29 H 106/69 94 L 03/08/19 06:00 88 17 105/69 93 L 03/08/19 05:28 92 L 03/08/19 05:00 90 19 98/65 90 L 03/08/19 04:00 97.9 F 82 17 96/69 93 L 03/08/19 03:36 80 03/08/19 03:17 83 03/08/19 03:00 80 17 96/67 93 L 03/08/19 02:00 71 20 105/74 93 L 03/08/19 01:00 77 16 113/79 94 L 03/08/19 00:00 97.6 F 87 20 110/67 93 L 03/07/19 23:32 85 03/07/19 23:19 86 03/07/19 23:00 85 19 119/84 94 L 03/07/19 22:00 86 23 111/76 93 L 03/07/19 21:00 76 16 121/78 96 03/07/19 20:00 97.5 F L 84 20 115/88 92 L 03/07/19 19:51 82 03/07/19 19:42 86 03/07/19 19:00 76 18 106/68 92 L 03/07/19 18:00 87 24 114/82 93 L 03/07/19 17:00 86 16 120/68 95 03/07/19 16:22 86 03/07/19 16:07 94 03/07/19 16:00 98.3 F 96 22 105/63 90 L 03/07/19 15:00 97 16 95/65 95 03/07/19 14:00 96 20 91 L 03/07/19 13:00 86 19 116/85 91 L 03/07/19 12:00 97.6 F 87 17 96/73 90 L 03/07/19 11:20 85 03/07/19 11:09 84 03/07/19 11:00 89 20 94/68 92 L 03/07/19 10:00 88 22 101/63 91 L 03/07/19 09:00 93 14 96 Intake and Output 03/07/19 03/08/19 03/08/19 22:59 06:59 14:59 Intake Total 347.917 160 245 Output Total 1750 0055 400 Balance -1402.083 -1415 -155 Intake: IV 260 160 45 Cefepime 2 gm In Sodium 100 Chloride 0.9% 100 ml @ 200 mls/hr IVPB Q12HR [facility] Rx#:[id number] Lasix 5 Sodium Chloride 0.9% 1, 160 160 40 000 ml @ 20 mls/hr IV . Q24H [facility] Rx#:[id number] Intake, IV Titration 87.917 Amount Furosemide 100 mg In 87.917 Sodium Chloride 0.9% 90 ml @ 5 MG/HR 5 mls/hr IV .Q20H [facility] Rx#:[id number] Oral 200 Output: Urine 1750 1575 400 Other: Voiding Method Indwelling Catheter Indwelling Catheter Weight 98.9 kg ABP, PAP, CO, CI - Last 8 Hours Arterial Blood Pressure 113/61 Arterial Blood Pressure 104/57 Skin: Good color, texture, turgor. General: Overweight build and comfortable appearance. Head: Normocephalic, atraumatic. Eyes: Symmetric. Pupils equal round. Ears: Symmetric. Hearing within normal limits. Mouth: Clear. Neck: Supple. Carotid without bruit. Cardiac: Regular rate and rhythm. Lungs: Clear anteriorly and posteriorly. Abdomen: Soft active nontender. Overweight. Extremities: Normal tone. Neurological: Mental status: Alert, cooperative, pleasant. Cranial nerves: Symmetric facial tone and trapezius. Motor: Active movement throughout but with definite weakness on left side as compared to right. Nursing reports that left leg definitely less than antigravity and kareem. Sensation: Intact throughout. DTRs: Symmetric and equal throughout. Mobility: Nursing reports 3 person physical assist for transfer from bed to Yaquelin chair. Results CBC & Chem 7: 03/08/19 05:30 03/08/19 05:30 Labs: Abnormal Lab Results - Last 24 Hours (Table) 03/07/19 03/07/19 03/08/19 Range/Units 16:52 23:47 05:30 Plt Count 124 L (150-450) k/uL Lymphocytes # 0.7 L (1.0-4.8) k/uL Chloride (98-107) mmol/L Carbon Dioxide (22-30) mmol/L BUN (9-20) mg/dL Glucose (74-99) mg/dL POC Glucose (mg/dL) 138 H 144 H (75-99) mg/dL 03/08/19 03/08/19 Range/Units 05:30 05:42 Plt Count (150-450) k/uL Lymphocytes # (1.0-4.8) k/uL Chloride 96 L (98-107) mmol/L Carbon Dioxide 35 H (22-30) mmol/L BUN 28 H (9-20) mg/dL Glucose 111 H (74-99) mg/dL POC Glucose (mg/dL) 103 H (75-99) mg/dL Microbiology - Last 24 Hours (Table) 03/01/19 19:04 Blood Culture - Final Blood No Growth after 144 hours Assessment and Plan (1) Acute respiratory failure Current Visit: No Status: Acute Code(s): J96.00 - ACUTE RESPIRATORY FAILURE, UNSP W HYPOXIA OR HYPERCAPNIA SNOMED Code(s): 85646108 Plan: Impression: 1. Walking difficulty. 2. Acute respiratory distress/failure. 3. History of stroke and left hemiparesthesias. 4. Hypertension. 5. Atrial ablation. 6. CHF. 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 Note patient 2-3 person physical assist. At this time patient requires 24/7 care multiple persons in order recommend such care, i.e. subacute or SNF.
[2019-03-08] MEDS: METOPROLOL TARTRATE 25 MG TAB PO SCH ×3 (10:04→20:49)
[2019-03-08] MEDS: SPIRONOLACTONE 25 MG TAB PO SCH ×2 (10:04→20:50)
[2019-03-08] MEDS: APIXABAN 5 MG TAB PO SCH ×2 (10:05→20:49)
[2019-03-08] MEDS: CEFEPIME 2 GM in SODIUM CHLORIDE 0.9% 100 ML IVPB SCH ×2 (10:05→20:50)
[2019-03-08] MEDS: ASPIRIN 81 MG PO SCH (10:05)
[2019-03-08] MEDS: levETIRAcetam 500 MG TAB PO SCH ×2 (10:05→20:49)
[2019-03-08] MEDS: PANTOPRAZOLE 40 MG/10 ML VIAL IV SCH (10:06)
--- NOTE | 2019-03-08 10:21 | XR ---
EXAMINATION TYPE: XR chest 1V portable DATE OF EXAM: 03/08/2019 CLINICAL HISTORY: Difficulty breathing progress study. TECHNIQUE: Single AP portable upright view of the chest is obtained. COMPARISON: Chest x-ray from one day earlier FINDINGS: Left subclavian central venous catheter are stable in appearance. Persistent cardiomegaly with atherosclerotic thoracic aorta and bibasilar opacities. Suspect vascular congestion shows some i mprovement. Osseous structures are demineralized. IMPRESSION: Suspect persistent CHF exacerbation as there is cardiomegaly with central vascular conge stion and small bilateral pleural effusions remaining present. Associated bibasilar atelectasis and/o r infiltrate noted. Interval improvement in Central congestion and diminished size bilateral pleural effusions noted since prior.
[2019-03-08 11:59] LABS: Glucose,Whole Blood 157 mg/dL (75-99)
[2019-03-08] MEDS: FUROSEMIDE 10 MG/ML 4 ML VIAL IV SCH ×3 (12:05→23:55)
[2019-03-08] MEDS: NOREPINEPHRINE 32 MG in SODIUM CHLORIDE 0.9% 218 ML IV SCH (12:06)
--- NOTE | 2019-03-08 12:52 | P.PN ---
Subjective Progress Note Date: 03/08/19 Principal diagnosis: Acute hypoxic respiratory failure secondary to congestive heart failure, secondary to severe aortic stenosis severe mitral regurgitation, preserved LV function. on 03/06/2019 the patient is extubated and currently is on oxygen at 8 L per minute nasal cannula with a pulse ox of 93%. He is on a Lasix drip at 5 mg an hour. He continues to make excellent urine output and he is net fluid balance over the past 24 hours is been - 1.3 L. Nevertheless, despite ongoing diuresis, the chest x-ray still showing Ludy megaly and worsening in CHF. As mentioned earlier, the patient has severe aortic stenosis. He is still in atrial fibrillation. Norepinephrine infusion is being utilized for blood pressure control and currently is running at 0.06 units per KG per minute. His serum bicarb is up and on his blood gases he has developed some metabolic alkalosis. Serum bicarbonate was up to 34. I'm going to give him 2 doses of Diamox for now. Otherwise, he is weak. He is awake. Is following commands. He did have dinner yesterday and he did have breakfast this morning. No fever. No chills. Will be given an incentive spirometer.As mentioned earlier, the patient has severe aortic stenosis. He has a valve area of 0.5 cm. His ejection fraction is within normal limits with an EF of around 50-55%. He has severe pulmonary hypertension with a PA Jenny of 67. He remains on IV cefepime. This is empiric antibiotic coverage. No fever. No chills Reevaluated today on 03/07/2019, patient remains in the intensive care unit, however his overall status remains marginal, he is on 15 L high flow nasal cannula, remains on Lasix at 5 mg per hour. Chest x-ray continues to show evidence of pulmonary edema and bilateral airspace disease. According to the patient is feeling much better today compared to the last few days, patient was extubated 2 days ago, and he seems to be tolerating the extubation well, but of course his overall pulmonary status is marginal. His urine output is excellent, hence I will keep him on Lasix at 5 mg per hour drip. Remains on antibiotics coverage empirically. CBC today is normal. Electrode was are normal. BUN is 28 creatinine is 1.10. Creatinine on admission was 1.48. Hence it seems to be improving in spite of aggressive diuresis. Reevaluated today on 03/04/2019, patient is now on 10 L high flow nasal cannula, O2 saturations 95%, patient is feeling better, and his chest x-ray is showing improvement of his pulmonary edema, remains on Lasix drip which I transitioned to IV Lasix 40 mg IV push every 8 hours.patient is feeling better breathing easier. His CBC is relatively normal electrolytes are basically normal except for bicarb of 35 BUN is 28 creatinine of 1.11.small bilateral pleural effusions noted, bibasilar atelectasis is also noted. Overall improvement is noted on the chest x-ray Objective - Vital Signs Vital signs: Vital Signs Temp 98.1 F 03/08/19 12:00 Pulse 86 03/08/19 12:00 Resp 25 H 03/08/19 12:00 BP 104/72 03/08/19 11:00 Pulse Ox 96 03/08/19 12:00 Intake & Output 03/07/19 03/08/19 03/08/19 18:59 06:59 18:59 Intake Total 369.25 427.917 435 Output Total 1925 2525 1150 Balance -1555.75 -2097.083 -715 Weight 98.9 kg Intake: IV 340 340 235 Cefepime 2 gm In Sodium 100 100 100 Chloride 0.9% 100 ml @ 200 mls/hr IVPB Q12HR [facility] Rx#:[id number] Lasix 15 Sodium Chloride 0.9% 1, 240 240 120 000 ml @ 20 mls/hr IV . Q24H [facility] Rx#:[id number] Intake, IV Titration 29.25 87.917 Amount Diltiazem 125 mg In 29.25 Sodium Chloride 0.9% 100 ml @ 5 MG/HR 5 mls/hr IV .Q24H [facility] Rx#:[id number] Furosemide 100 mg In 87.917 Sodium Chloride 0.9% 90 ml @ 5 MG/HR 5 mls/hr IV .Q20H [facility] Rx#:[id number] Oral 200 Output: Urine 1925 2525 1150 Other: Voiding Method Indwelling Catheter Indwelling Catheter ABP, PAP, CO, CI - Last Documented Arterial Blood Pressure 118/67 - Exam Physical Exam: Revealed 79-year-old white male, on 10 L high flow nasal Head: Atraumatic normocephalic. HEENT:[Neck is supple.] [No neck masses.] [No thyromegaly.] [No JVD.] PERRLA, EOMI, no icterus. Chest: [Symmetrical chest expansion, crackles at the bases.. No rhonchi, no wheezes.] Cardiac Exam: [Irregular irregular rhythm, normal S1 and S2, 3/6 systolic murmur at the left lower sternal border. Radiating to the neck. Likely secondary to aortic stenosis. Abdomen: [Obese, Soft, nontender, no megaly, no rebound, no guarding, normal bowel sounds.] Extremities: [No clubbing, 1+ bipedal edema, no cyanosis.] Neurological Exam: Alert oriented 3, chronic left-sided weakness noted related to previous CVA, patient has left-sided hemiparesis. Skin: No rashes. Psychiatric: Normal mood, affect and normal mental status examination. - Labs CBC & Chem 7: 03/08/19 05:30 03/08/19 05:30 Labs: Abnormal Lab Results - Last 24 Hours (Table) 03/07/19 03/07/19 03/08/19 Range/Units 16:52 23:47 05:30 Plt Count 124 L (150-450) k/uL Lymphocytes # 0.7 L (1.0-4.8) k/uL Chloride (98-107) mmol/L Carbon Dioxide (22-30) mmol/L BUN (9-20) mg/dL Glucose (74-99) mg/dL POC Glucose (mg/dL) 138 H 144 H (75-99) mg/dL 03/08/19 03/08/19 03/08/19 Range/Units 05:30 05:42 11:48 Plt Count (150-450) k/uL Lymphocytes # (1.0-4.8) k/uL Chloride 96 L (98-107) mmol/L Carbon Dioxide 35 H (22-30) mmol/L BUN 28 H (9-20) mg/dL Glucose 111 H (74-99) mg/dL POC Glucose (mg/dL) 103 H 157 H (75-99) mg/dL Microbiology - Last 24 Hours (Table) 03/01/19 19:04 Blood Culture - Final Blood No Growth after 144 hours Assessment and Plan Assessment: Impression: Acute hypoxic respiratory failure secondary to pulmonary edema secondary to severe valvular heart disease including aortic stenosis and mitral regurgitation. Preserved LV function noted on the echocardiogram. Severe aortic stenosis and severe mitral regurgitation. Possible non-ST segment elevation myocardial infarction with elevated troponin. Acute lactic acidosis secondary to above. Chronic atrial fibrillation, we'll continue the patient on Eliquis. History of CVA. With left-sided weakness. History of seizure disorder, on Keppra. Benign essential hypertension. History of prostate cancer and previous radiation therapy Acute kidney injury, cardiorenal in nature, improved since admission. Transient hematuria, resolved by holding Eliquis. Acute metabolic alkalosis secondary to diuretics, hence Diamox was added. Recommendation: Continue Lasix , however will switch to IV infusion to Lasix 40 mg IV push every 8 hours. Continue Diamox at 250 mg IV push every 12 hours. Continue incentive spirometry.. transfer patient to a monitor bed on selective today. Continue to titrate oxygen down, presently on 10 L high flow nasal cannula Overall prognosis remains extremely poor and guarded, we'll continue to follow. Time with Patient: Less than 30
[2019-03-08 12:54] LABS: ABG Base Excess 8.5 mmol/L; ABG HCO3 33 mmol/L (21-25); ABG Oxygen Saturation 92.1 % (94-97); ABG PCO2 51 mmHg (35-45); ABG PH 7.42 (7.35-7.45); ABG PO2 64 mmHg (83-108); ABG TCO2 35 mmol/L (19-24)
[2019-03-08 12:57] LABS: Allen Test Performed? no
[2019-03-08 17:12] LABS: Glucose,Whole Blood 147 mg/dL (75-99)
--- NOTE | 2019-03-08 17:17 | P.PN ---
Subjective Progress Note Date: 03/08/19 Principal diagnosis: acute hypoxic respiratory failure secondary to pulmonary edema/acute CHF. patient a pleasant 79-year-old white male admitted through the emergency department into the ICU for acute respiratory failure and pulmonary edema 03/04/2019 patient is now on 10 L high flow nasal cannula, O2 saturations 95%, patient is feeling better, and his chest x-ray is showing improvement of his pulmonary edema, remains on Lasix drip which I transitioned to IV Lasix 40 mg IV push every 8 hours.patient is feeling better breathing easier. His CBC is relatively normal electrolytes are basically normal except for bicarb of 35 BUN is 28 creatinine of 1.11.small bilateral pleural effusions noted, bibasilar atelectasis is also noted. Overall improvement is noted on the chest x-ray Objective - Vital Signs Vital signs: Vital Signs Temp 98.1 F 03/08/19 16:00 Pulse 100 03/08/19 16:07 Resp 20 03/08/19 16:00 BP 109/79 03/08/19 16:00 Pulse Ox 66 L 03/08/19 16:00 Intake & Output 03/07/19 03/08/19 03/08/19 18:59 06:59 18:59 Intake Total 369.25 427.917 535 Output Total 1924 2524 1849 Balance -1555.75 -2097.083 -1315 Weight 98.9 kg Intake: IV 340 340 315 Cefepime 2 gm In Sodium 100 100 100 Chloride 0.9% 100 ml @ 200 mls/hr IVPB Q12HR [facility] Rx#:[id number] Lasix 15 Sodium Chloride 0.9% 1, 240 240 200 000 ml @ 20 mls/hr IV . Q24H [facility] Rx#:[id number] Intake, IV Titration 29.25 87.917 Amount Diltiazem 125 mg In 29.25 Sodium Chloride 0.9% 100 ml @ 5 MG/HR 5 mls/hr IV .Q24H [facility] Rx#:[id number] Furosemide 100 mg In 87.917 Sodium Chloride 0.9% 90 ml @ 5 MG/HR 5 mls/hr IV .Q20H [facility] Rx#:[id number] Oral 200 Tube Feeding 20 Output: Urine 1924 2524 185 Other: Voiding Method Indwelling Catheter Indwelling Catheter ABP, PAP, CO, CI - Last Documented Arterial Blood Pressure 117/63 - Exam Patient is lying in the bed comfortably, no acute distress, awake alert and oriented.lethargic and weak. HEENT: Normocephalic. Neck is supple. Pupils reactive. Nostrils clear. Oral cavity is moist. Ears reveal no drainage. Neck reveals no JVD, carotid bruits, or thyromegaly. CHEST EXAMINATION: Trachea is central. Symmetrical expansion. Bibasilar diminished breath sounds nd crackles.. CARDIAC: Normal S1, S2 with no gallops. No murmurs ABDOMEN: Soft. Bowel sounds normal. No organomegaly. No abdominal bruits. Extremities: 2+ edema. No clubbing or cyanosis Neurologically awake, alert, oriented x3 with well-coordinated movements. No focal deficits noted Skin: No rash or skin lesions. - Labs CBC & Chem 7: 03/08/19 05:30 03/08/19 05:30 Labs: Abnormal Lab Results - Last 24 Hours (Table) 03/07/19 03/08/19 03/08/19 Range/Units 23:47 05:30 05:30 Plt Count 124 L (150-450) k/uL Lymphocytes # 0.7 L (1.0-4.8) k/uL ABG pCO2 (35-45) mmHg ABG pO2 (83-108) mmHg ABG HCO3 (21-25) mmol/L ABG Total CO2 (19-24) mmol/L ABG O2 Saturation (94-97) % Chloride 96 L (98-107) mmol/L Carbon Dioxide 35 H (22-30) mmol/L BUN 28 H (9-20) mg/dL Glucose 111 H (74-99) mg/dL POC Glucose (mg/dL) 144 H (75-99) mg/dL 03/08/19 03/08/19 03/08/19 Range/Units 05:42 11:48 12:52 Plt Count (150-450) k/uL Lymphocytes # (1.0-4.8) k/uL ABG pCO2 51 H (35-45) mmHg ABG pO2 64 L (83-108) mmHg ABG HCO3 33 H (21-25) mmol/L ABG Total CO2 35 H (19-24) mmol/L ABG O2 Saturation 92.1 L (94-97) % Chloride (98-107) mmol/L Carbon Dioxide (22-30) mmol/L BUN (9-20) mg/dL Glucose (74-99) mg/dL POC Glucose (mg/dL) 103 H 157 H (75-99) mg/dL 03/08/19 Range/Units 17:00 Plt Count (150-450) k/uL Lymphocytes # (1.0-4.8) k/uL ABG pCO2 (35-45) mmHg ABG pO2 (83-108) mmHg ABG HCO3 (21-25) mmol/L ABG Total CO2 (19-24) mmol/L ABG O2 Saturation (94-97) % Chloride (98-107) mmol/L Carbon Dioxide (22-30) mmol/L BUN (9-20) mg/dL Glucose (74-99) mg/dL POC Glucose (mg/dL) 147 H (75-99) mg/dL Microbiology - Last 24 Hours (Table) 03/01/19 19:04 Blood Culture - Final Blood No Growth after 144 hours Assessment and Plan Assessment: acute hypoxic respiratory failure secondary to pulmonary edema. Improved now. C urrently on high flow oxygen we are nasal Acute on chronic CHF due diastolic dysfunction. underlying severe aortic stenosis Bilateral pleural effusion severe aortic stenosis elevated troponin levellikely due to CHF. Possible non-ST elevated [place] Lactic acidosis resolved Acute kidney injury with creatinine level I.48 on admission. Improved to 0.96 today. Chronic atrial fibrillation on anticoagulation on Eliquis at home.was on hold due to hematuria but restarted after urology clearance. Hematuria improved. Seen by urology. Hypovolemic/cardiogenic shock requiring pressors support Previous history of CVA history of seizures Prostate cancer status post radiation therapy Hyperlipidemia Hypertension plan: Patient is being continued on Lasix drip . Currently off pressor support. Critical care team is following. Monitor H&H and renal function. Continued on empiric antibiotics in the form of cefepime. Follow closely and further recommendations based on the clinical course. Cardiology is on board.prognosis is guarded.
--- NOTE | 2019-03-08 17:57 | P.PN ---
Subjective Progress Note Date: 03/08/19 This is a 79-year-old gentleman with history of severe aortic stenosis who was admitted to the hospital with significant pulmonary edema. Patient is still intubated. Patient is diuresing well. IV Lasix was cut back to 5 mg yesterday. He is also on IV Cardizem drip. He responds to verbal stimuli. Chest x-ray showed some infiltrates. We'll continue with IV Lasix drip and also Cardizem until patient is extubated. Subsequently open switch medication to by mouth diuretics and the Cardizem. Patient eventually may need cardiac catheterization and also possible aortic valve replacement. 03/06/2019: This patient with severe aortic stenosis was admitted with CHF and pulmonary edema. Patient is extubated. He is a sitting up and seemed to be slightly lethargic but easily arousable. Doesn't appear to be in acute distress. Patient is on IV Lasix and diuresing well. His CO2 is going up and patient was initiated on Diamox by the strap cutting machine operator. Patient is going to have an ultrasound of the chest to see if there is a fluid with that could be tapped. Patient is [place] fibrillation. Chest x-ray showed cardiomegaly and bilateral pleural effusion and findings of CHF. We'll continue current medical therapy including IV Lasix. Patient may need further evaluation and possible aortic valve replacement. Prognosis is guarded. 03/07/2019: Patient remains relatively stable. He is a sitting up in the chair, alert and oriented and doesn't appear to be in acute distress. He is in atrial fibrillation with controlled and corresponds. Patient is on Eliquis and also IV Cardizem and metoprolol. He is also on IV Lasix drip and Aldactone. I'm going to discontinue IV Cardizem and increase the dose of the metoprolol to 25 mg by mouth 3 times a day. His blood pressure is about 110/70. I discussed with him about aortic stenosis and need for possible valve replacement. At this point, patient wants to think about it. Probably can be taken off the IV Lasix and started on bolus of IV Lasix or by mouth Lasix. Increase activity as tolerated. When patient is gradient discussed with Dr. Sales regarding doing a cardiac catheterization. 03/08/2019: The patient's was improvement. He seemed to be less short of breath and seemed to be a new more energetic. A chest x-ray shows improvement. We can switch IV Lasix drip to IV boluses. His heart rate is controlled with metoprolol. He is off Cardizem drip. His lungs show diminished breath sounds at bases. I discussed with patient about further evaluation of the aortic valve disease. Patient wants to think about it and discuss with his . We will continue current medical therapy. Possible transfer to telemetry unit. Prognosis is guarded. Patient is still in high flow oxygen supplement Objective - Vital Signs Vital signs: Vital Signs Temp 98.1 F 03/08/19 16:00 Pulse 89 03/08/19 17:00 Resp 19 03/08/19 17:00 BP 114/77 03/08/19 17:00 Pulse Ox 94 L 03/08/19 17:00 Intake & Output 03/07/19 03/08/19 03/08/19 18:59 06:59 18:59 Intake Total 369.25 427.917 555 Output Total 1924 2525 2200 Balance -1555.75 -2097.083 -1645 Weight 98.9 kg Intake: IV 340 340 335 Cefepime 2 gm In Sodium 100 100 100 Chloride 0.9% 100 ml @ 200 mls/hr IVPB Q12HR [facility] Rx#:[id number] Lasix 15 Sodium Chloride 0.9% 1, 240 240 220 000 ml @ 20 mls/hr IV . Q24H [facility] Rx#:[id number] Intake, IV Titration 29.25 87.917 Amount Diltiazem 125 mg In 29.25 Sodium Chloride 0.9% 100 ml @ 5 MG/HR 5 mls/hr IV .Q24H [facility] Rx#:[id number] Furosemide 100 mg In 87.917 Sodium Chloride 0.9% 90 ml @ 5 MG/HR 5 mls/hr IV .Q20H [facility] Rx#:[id number] Oral 200 Tube Feeding 20 Output: Urine 1924 252 2200 Other: Voiding Method Indwelling Catheter Indwelling Catheter ABP, PAP, CO, CI - Last Documented Arterial Blood Pressure 124/66 - Exam GENERAL EXAM: Patient is intubated but follows commands HEENT: Normocephalic. Normal reaction of pupils, equal size, normal range of extraocular motion. No erythema or exudates in the throat. NECK: No masses, no nuchal rigidity. CHEST: No chest wall deformity. LUNGS: Diminished breath sounds at both bases HEART: S1 and S2 normal ABDOMEN: Soft SKIN: No rashes CENTRAL NERVOUS SYSTEM: No focal deficits. EXTREMITIES: No cyanosis, clubbing or edema. - Labs CBC & Chem 7: 03/08/19 05:30 03/08/19 05:30 Labs: Abnormal Lab Results - Last 24 Hours (Table) 03/07/19 03/08/19 03/08/19 Range/Units 23:47 05:30 05:30 Plt Count 124 L (150-450) k/uL Lymphocytes # 0.7 L (1.0-4.8) k/uL ABG pCO2 (35-45) mmHg ABG pO2 (83-108) mmHg ABG HCO3 (21-25) mmol/L ABG Total CO2 (19-24) mmol/L ABG O2 Saturation (94-97) % Chloride 96 L (98-107) mmol/L Carbon Dioxide 35 H (22-30) mmol/L BUN 28 H (9-20) mg/dL Glucose 111 H (74-99) mg/dL POC Glucose (mg/dL) 144 H (75-99) mg/dL 03/08/19 03/08/19 03/08/19 Range/Units 05:42 11:48 12:52 Plt Count (150-450) k/uL Lymphocytes # (1.0-4.8) k/uL ABG pCO2 51 H (35-45) mmHg ABG pO2 64 L (83-108) mmHg ABG HCO3 33 H (21-25) mmol/L ABG Total CO2 35 H (19-24) mmol/L ABG O2 Saturation 92.1 L (94-97) % Chloride (98-107) mmol/L Carbon Dioxide (22-30) mmol/L BUN (9-20) mg/dL Glucose (74-99) mg/dL POC Glucose (mg/dL) 103 H 157 H (75-99) mg/dL 03/08/19 Range/Units 17:00 Plt Count (150-450) k/uL Lymphocytes # (1.0-4.8) k/uL ABG pCO2 (35-45) mmHg ABG pO2 (83-108) mmHg ABG HCO3 (21-25) mmol/L ABG Total CO2 (19-24) mmol/L ABG O2 Saturation (94-97) % Chloride (98-107) mmol/L Carbon Dioxide (22-30) mmol/L BUN (9-20) mg/dL Glucose (74-99) mg/dL POC Glucose (mg/dL) 147 H (75-99) mg/dL Microbiology - Last 24 Hours (Table) 03/01/19 19:04 Blood Culture - Final Blood No Growth after 144 hours Assessment and Plan (1) Pulmonary edema Current Visit: Yes Status: Acute Code(s): J81.1 - CHRONIC PULMONARY EDEMA SNOMED Code(s): 58325556 (2) Severe aortic stenosis Current Visit: Yes Status: Acute Code(s): I35.0 - NONRHEUMATIC AORTIC (VALVE) STENOSIS SNOMED Code(s): 54636354 (3) Chronic a-fib Current Visit: No Status: Acute Code(s): I48.2 - CHRONIC ATRIAL FIBRILLATION * DO NOT USE * SNOMED Code(s): 912177484 (4) HTN (hypertension) Current Visit: No Status: Acute Code(s): I10 - ESSENTIAL (PRIMARY) HYPERTENSION SNOMED Code(s): 51181295 Plan: Patient shows some improvement. Still weak and frail. IV Lasix therapy changed to IV Lasix boluses. Being transferred to telemetry unit. Will discuss with family regarding further evaluation regarding aortic stenosis
[2019-03-08 20:35] LABS: Glucose,Whole Blood 152 mg/dL (75-99)
[2019-03-08] MEDS: ATORVASTATIN 20 MG TAB PO SCH (20:49)
[2019-03-09] MEDS: IPRATROPIUM-ALBUTEROL 3 ML NEB INHALATION SCH ×6 (03:33→23:40)
[2019-03-09] MEDS: INSULIN ASPART (NovoLOG) 100 UNIT/ML VIAL SQ SCH ×4 (06:41→21:05)
[2019-03-09 06:44] LABS: Glucose,Whole Blood 111 mg/dL (75-99)
[2019-03-09 07:06] LABS: HCT 50.1 % (39.0-53.0); HGB 15.4 gm/dL (13.0-17.5); Hypochromasia Slight; MCH 28.5 pg (25.0-35.0); MCHC 30.8 g/dL (31.0-37.0); MCV 92.5 fL (80.0-100.0); Mean Platelet Volume 11.4; Platelet Count 126 k/uL (150-450); RBC 5.42 m/uL (4.30-5.90); RDW 14.7 % (11.5-15.5); WBC 7.7 k/uL (3.8-10.6)
[2019-03-09 07:18] LABS: Calcium 9.3 mg/dL (8.4-10.2); Potassium 4.1 mmol/L (3.5-5.1)
[2019-03-09] MEDS: APIXABAN 5 MG TAB PO SCH ×2 (08:09→20:51)
[2019-03-09] MEDS: levETIRAcetam 500 MG TAB PO SCH ×2 (08:09→20:52)
[2019-03-09] MEDS: CEFEPIME 2 GM in SODIUM CHLORIDE 0.9% 100 ML IVPB SCH ×2 (08:09→20:52)
[2019-03-09] MEDS: ASPIRIN 81 MG PO SCH (08:09)
[2019-03-09] MEDS: FUROSEMIDE 10 MG/ML 4 ML VIAL IV SCH ×3 (08:09→23:33)
[2019-03-09] MEDS: SPIRONOLACTONE 25 MG TAB PO SCH ×2 (08:09→20:51)
[2019-03-09] MEDS: PANTOPRAZOLE 40 MG/10 ML VIAL IV SCH (08:09)
[2019-03-09] MEDS: METOPROLOL TARTRATE 25 MG TAB PO SCH ×3 (08:09→21:00)
--- NOTE | 2019-03-09 09:26 | P.PN ---
Subjective Progress Note Date: 03/09/19 This is a 79-year-old gentleman with history of severe aortic stenosis who was admitted to the hospital with significant pulmonary edema. Patient is still intubated. Patient is diuresing well. IV Lasix was cut back to 5 mg yesterday. He is also on IV Cardizem drip. He responds to verbal stimuli. Chest x-ray showed some infiltrates. We'll continue with IV Lasix drip and also Cardizem until patient is extubated. Subsequently open switch medication to by mouth diuretics and the Cardizem. Patient eventually may need cardiac catheterization and also possible aortic valve replacement. 03/06/2019: This patient with severe aortic stenosis was admitted with CHF and pulmonary edema. Patient is extubated. He is a sitting up and seemed to be slightly lethargic but easily arousable. Doesn't appear to be in acute distress. Patient is on IV Lasix and diuresing well. His CO2 is going up and patient was initiated on Diamox by the gasateria attendant. Patient is going to have an ultrasound of the chest to see if there is a fluid with that could be tapped. Patient is tonto [place] fibrillation. Chest x-ray showed cardiomegaly and bilateral pleural effusion and findings of CHF. We'll continue current medical therapy including IV Lasix. Patient may need further evaluation and possible aortic valve replacement. Prognosis is guarded. 03/07/2019: Patient remains relatively stable. He is a sitting up in the chair, alert and oriented and doesn't appear to be in acute distress. He is in atrial fibrillation with controlled and corresponds. Patient is on Eliquis and also IV Cardizem and metoprolol. He is also on IV Lasix drip and Aldactone. I'm going to discontinue IV Cardizem and increase the dose of the metoprolol to 25 mg by mouth 3 times a day. His blood pressure is about 110/70. I discussed with him about aortic stenosis and need for possible valve replacement. At this point, patient wants to think about it. Probably can be taken off the IV Lasix and started on bolus of IV Lasix or by mouth Lasix. Increase activity as tolerated. When patient is gradient discussed with Dr. Sales regarding doing a cardiac catheterization. 03/08/2019: The patient's was improvement. He seemed to be less short of breath and seemed to be a new more energetic. A chest x-ray shows improvement. We can switch IV Lasix drip to IV boluses. His heart rate is controlled with metoprolol. He is off Cardizem drip. His lungs show diminished breath sounds at bases. I discussed with patient about further evaluation of the aortic valve disease. Patient wants to think about it and discuss with his . We will continue current medical therapy. Possible transfer to telemetry unit. Prognosis is guarded. Patient is still in high flow oxygen supplement. 03/09/2019: Patient is a feeling better and seemed to be in no acute distress. Patient is sitting up in the chair. His lungs show few crackles at bases. Could be related to check to assess. Patient is advised to increase incentive spirometry. Patient is in atrial fibrillation but rate is controlled. He just on metoprolol at this time. He is on IV bolus of Lasix which can be changed to by mouth Lasix. Patient is being transferred to telemetry unit. Patient hasn't decided about further workup regarding his aortic stenosis. When patient is ready oh may proceed with JANY first. Prognosis still guarded Objective - Vital Signs Vital signs: Vital Signs Temp 97.4 F L 03/09/19 08:00 Pulse 98 03/09/19 08:03 Resp 19 03/09/19 08:00 BP 103/74 03/09/19 08:00 Pulse Ox 95 03/09/19 08:00 Intake & Output 03/08/19 03/09/19 03/09/19 18:59 06:59 18:59 Intake Total 575 310 120 Output Total 2550 0 390 Balance -1974 Weight 96.9 kg Intake: IV 355 310 120 Cefepime 2 gm In Sodium 100 200 100 Chloride 0.9% 100 ml @ 200 mls/hr IVPB Q12HR [facility] Rx#:[id number] Lasix 15 Sodium Chloride 0.9% 1, 240 110 20 000 ml @ 20 mls/hr IV . Q24H [facility] Rx#:[id number] Oral 200 Tube Feeding 20 Output: Urine 2550 2060 390 Other: Voiding Method Indwelling Catheter Indwelling Catheter Indwelling Catheter ABP, PAP, CO, CI - Last Documented Arterial Blood Pressure 115/62 - Exam GENERAL EXAM: Patient is intubated but follows commands HEENT: Normocephalic. Normal reaction of pupils, equal size, normal range of extraocular motion. No erythema or exudates in the throat. NECK: No masses, no nuchal rigidity. CHEST: No chest wall deformity. LUNGS: Diminished breath sounds at both bases HEART: S1 and S2 normal ABDOMEN: Soft SKIN: No rashes CENTRAL NERVOUS SYSTEM: No focal deficits. EXTREMITIES: No cyanosis, clubbing or edema. - Labs CBC & Chem 7: 03/09/19 05:10 03/09/19 05:10 Labs: Abnormal Lab Results - Last 24 Hours (Table) 03/08/19 03/08/19 03/08/19 Range/Units 11:48 12:52 17:00 MCHC (31.0-37.0) g/dL Plt Count (150-450) k/uL ABG pCO2 51 H (35-45) mmHg ABG pO2 64 L (83-108) mmHg ABG HCO3 33 H (21-25) mmol/L ABG Total CO2 35 H (19-24) mmol/L ABG O2 Saturation 92.1 L (94-97) % Sodium (137-145) mmol/L Chloride (98-107) mmol/L Carbon Dioxide (22-30) mmol/L BUN (9-20) mg/dL Glucose (74-99) mg/dL POC Glucose (mg/dL) 157 H 147 H (75-99) mg/dL 03/08/19 03/09/19 03/09/19 Range/Units 20:23 05:10 05:10 MCHC 30.8 L (31.0-37.0) g/dL Plt Count 126 L (150-450) k/uL ABG pCO2 (35-45) mmHg ABG pO2 (83-108) mmHg ABG HCO3 (21-25) mmol/L ABG Total CO2 (19-24) mmol/L ABG O2 Saturation (94-97) % Sodium 136 L (137-145) mmol/L Chloride 94 L (98-107) mmol/L Carbon Dioxide 35 H (22-30) mmol/L BUN 32 H (9-20) mg/dL Glucose 123 H (74-99) mg/dL POC Glucose (mg/dL) 152 H (75-99) mg/dL 03/09/19 Range/Units 06:33 MCHC (31.0-37.0) g/dL Plt Count (150-450) k/uL ABG pCO2 (35-45) mmHg ABG pO2 (83-108) mmHg ABG HCO3 (21-25) mmol/L ABG Total CO2 (19-24) mmol/L ABG O2 Saturation (94-97) % Sodium (137-145) mmol/L Chloride (98-107) mmol/L Carbon Dioxide (22-30) mmol/L BUN (9-20) mg/dL Glucose (74-99) mg/dL POC Glucose (mg/dL) 111 H (75-99) mg/dL Assessment and Plan (1) Pulmonary edema Current Visit: Yes Status: Acute Code(s): J81.1 - CHRONIC PULMONARY EDEMA SNOMED Code(s): 93333247 (2) Severe aortic stenosis Current Visit: Yes Status: Acute Code(s): I35.0 - NONRHEUMATIC AORTIC (VALVE) STENOSIS SNOMED Code(s): 65874050 (3) Chronic a-fib Current Visit: No Status: Acute Code(s): I48.2 - CHRONIC ATRIAL FIBRILLATION * DO NOT USE * SNOMED Code(s): 232577297 (4) HTN (hypertension) Current Visit: No Status: Acute Code(s): I10 - ESSENTIAL (PRIMARY) HYPERTENSION SNOMED Code(s): 88215929 Plan: Patient shows some improvement. Still weak and frail. IV Lasix therapy changed to IV Lasix boluses. Being transferred to telemetry unit. Will discuss with family regarding further evaluation regarding aortic stenosis. 03/09/2019: Patient is clinically stable. Still an IV bolus of Lasix which can be changed to by mouth Lasix. Continue with incentive spirometry. Again, I had discussion with the patient regarding further evaluation of aortic stenosis. At this point patient hasn't decided .
[2019-03-09 09:40] LABS: Eosinophils # (M) 0.46 k/uL (0-0.7); Lymphocytes # (M) 0.69 k/uL (1.0-4.8); Neutrophils # (M) 5.54 k/uL (1.3-7.7); Neutrophils % (M) 72 %; Nucleated Red Blood Cells 0 /100 WBC (0-0); Total Cells Counted 100
[2019-03-09 09:41] LABS: Large Platelets Present
--- NOTE | 2019-03-09 10:04 | P.PN ---
Subjective Progress Note Date: 03/09/19 Principal diagnosis: Acute hypoxic respiratory failure secondary to congestive heart failure, secondary to severe aortic stenosis severe mitral regurgitation, preserved LV function. on 03/06/2019 the patient is extubated and currently is on oxygen at 8 L per minute nasal cannula with a pulse ox of 93%. He is on a Lasix drip at 5 mg an hour. He continues to make excellent urine output and he is net fluid balance over the past 24 hours is been - 1.3 L. Nevertheless, despite ongoing diuresis, the chest x-ray still showing Ludy megaly and worsening in CHF. As mentioned earlier, the patient has severe aortic stenosis. He is still in atrial fibrillation. Norepinephrine infusion is being utilized for blood pressure control and currently is running at 0.06 units per KG per minute. His serum bicarb is up and on his blood gases he has developed some metabolic alkalosis. Serum bicarbonate was up to 34. I'm going to give him 2 doses of Diamox for now. Otherwise, he is weak. He is awake. Is following commands. He did have dinner yesterday and he did have breakfast this morning. No fever. No chills. Will be given an incentive spirometer.As mentioned earlier, the patient has severe aortic stenosis. He has a valve area of 0.5 cm. His ejection fraction is within normal limits with an EF of around 50-55%. He has severe pulmonary hypertension with a PA Jenny of 67. He remains on IV cefepime. This is empiric antibiotic coverage. No fever. No chills Reevaluated today on 03/07/2019, patient remains in the intensive care unit, however his overall status remains marginal, he is on 15 L high flow nasal cannula, remains on Lasix at 5 mg per hour. Chest x-ray continues to show evidence of pulmonary edema and bilateral airspace disease. According to the patient is feeling much better today compared to the last few days, patient was extubated 2 days ago, and he seems to be tolerating the extubation well, but of course his overall pulmonary status is marginal. His urine output is excellent, hence I will keep him on Lasix at 5 mg per hour drip. Remains on antibiotics coverage empirically. CBC today is normal. Electrode was are normal. BUN is 28 creatinine is 1.10. Creatinine on admission was 1.48. Hence it seems to be improving in spite of aggressive diuresis. Reevaluated today on 03/08/2019, patient is now on 10 L high flow nasal cannula, O2 saturations 95%, patient is feeling better, and his chest x-ray is showing improvement of his pulmonary edema, remains on Lasix drip which I transitioned to IV Lasix 40 mg IV push every 8 hours.patient is feeling better breathing easier. His CBC is relatively normal electrolytes are basically normal except for bicarb of 35 BUN is 28 creatinine of 1.11.small bilateral pleural effusions noted, bibasilar atelectasis is also noted. Overall improvement is noted on the chest x-ray Reevaluated today on 03/09/2019, patient remains on high flow nasal cannula, O2 saturation is in the low 90s, however clinically the patient is feeling better, patient is presently on overflow in the intensive care unit, he is supposed to get a bed on selective/monitor bed. Continues to have crackles at the bases especially at the right base. Patient is in atrial fibrillation but rate seems to be controlled. Remains on metoprolol. He is on Lasix IV 40 mg every 8 hours. Cardiology is considering JANY on this patient to follow up on his severe aortic stenosis. Labs today were reviewed including his CBC which is normal, a left was are normal, BUN is 32 creatinine is 1.13. Improved compared to creatinine on admission which was 1.48. Objective - Vital Signs Vital signs: Vital Signs Temp 97.4 F L 03/09/19 08:00 Pulse 113 H 03/09/19 09:00 Resp 26 H 03/09/19 09:00 BP 103/74 03/09/19 08:00 Pulse Ox 91 L 03/09/19 09:00 Intake & Output 03/08/19 03/09/19 03/09/19 18:59 06:59 18:59 Intake Total 575 310 120 Output Total 2549 2059 390 Balance -1974 Weight 96.9 kg Intake: IV 355 310 120 Cefepime 2 gm In Sodium 100 200 100 Chloride 0.9% 100 ml @ 200 mls/hr IVPB Q12HR [facility] Rx#:[id number] Lasix 15 Sodium Chloride 0.9% 1, 240 110 20 000 ml @ 20 mls/hr IV . Q24H [facility] Rx#:[id number] Oral 200 Tube Feeding 20 Output: Urine 2550 2060 390 Other: Voiding Method Indwelling Catheter Indwelling Catheter Indwelling Catheter ABP, PAP, CO, CI - Last Documented Arterial Blood Pressure 107/56 - Exam Physical Exam: Revealed 79-year-old white male, on high flow nasal cannula. Head: Atraumatic normocephalic. HEENT:[Neck is supple.] [No neck masses.] [No thyromegaly.] [No JVD.] PERRLA, EOMI, no icterus. Chest: [Symmetrical chest expansion, crackles at the bases.. Mostly at the right base. No wheezes. Cardiac Exam: [Irregular irregular rhythm, normal S1 and S2, 3/6 systolic murmur at the left lower sternal border. Radiating to the neck. Likely secondary to aortic stenosis. Abdomen: [Obese, Soft, nontender, no megaly, no rebound, no guarding, normal bowel sounds.] Extremities: [No clubbing, 1+ bipedal edema, no cyanosis.] Neurological Exam: Alert oriented 3, chronic left-sided weakness noted related to previous CVA, patient has left-sided hemiparesis. Skin: No rashes. Psychiatric: Normal mood, affect and normal mental status examination. - Labs CBC & Chem 7: 03/09/19 05:10 03/09/19 05:10 Labs: Abnormal Lab Results - Last 24 Hours (Table) 03/08/19 03/08/19 03/08/19 Range/Units 11:48 12:52 17:00 MCHC (31.0-37.0) g/dL Plt Count (150-450) k/uL Lymphocytes # (Manual) (1.0-4.8) k/uL ABG pCO2 51 H (35-45) mmHg ABG pO2 64 L (83-108) mmHg ABG HCO3 33 H (21-25) mmol/L ABG Total CO2 35 H (19-24) mmol/L ABG O2 Saturation 92.1 L (94-97) % Sodium (137-145) mmol/L Chloride (98-107) mmol/L Carbon Dioxide (22-30) mmol/L BUN (9-20) mg/dL Glucose (74-99) mg/dL POC Glucose (mg/dL) 157 H 147 H (75-99) mg/dL 03/08/19 03/09/1919 Range/Units 20:23 05:10 05:10 MCHC 30.8 L (31.0-37.0) g/dL Plt Count 126 L (150-450) k/uL Lymphocytes # (Manual) 0.69 L (1.0-4.8) k/uL ABG pCO2 (35-45) mmHg ABG pO2 (83-108) mmHg ABG HCO3 (21-25) mmol/L ABG Total CO2 (19-24) mmol/L ABG O2 Saturation (94-97) % Sodium 136 L (137-145) mmol/L Chloride 94 L (98-107) mmol/L Carbon Dioxide 35 H (22-30) mmol/L BUN 32 H (9-20) mg/dL Glucose 123 H (74-99) mg/dL POC Glucose (mg/dL) 152 H (75-99) mg/dL 03/09/19 Range/Units 06:33 MCHC (31.0-37.0) g/dL Plt Count (150-450) k/uL Lymphocytes # (Manual) (1.0-4.8) k/uL ABG pCO2 (35-45) mmHg ABG pO2 (83-108) mmHg ABG HCO3 (21-25) mmol/L ABG Total CO2 (19-24) mmol/L ABG O2 Saturation (94-97) % Sodium (137-145) mmol/L Chloride (98-107) mmol/L Carbon Dioxide (22-30) mmol/L BUN (9-20) mg/dL Glucose (74-99) mg/dL POC Glucose (mg/dL) 111 H (75-99) mg/dL Assessment and Plan Assessment: Impression: Acute hypoxic respiratory failure secondary to pulmonary edema secondary to severe valvular heart disease including aortic stenosis and mitral regurgitation. Preserved LV function noted on the echocardiogram. Severe aortic stenosis and severe mitral regurgitation. Possible non-ST segment elevation myocardial infarction with elevated troponin. Acute lactic acidosis secondary to above. Resolved. Chronic atrial fibrillation, we'll continue the patient on Eliquis. Remains on metoprolol. History of CVA. With left-sided weakness. History of seizure disorder, on Keppra. Benign essential hypertension. History of prostate cancer and previous radiation therapy Acute kidney injury, improving. Transient hematuria, resolved by holding Eliquis. Recommendation: Continue Lasix , consider switching to oral Lasix. Continue Aldactone 25 mg by mouth twice a day. Resume Eliquis. Continue Keppra for his history of seizure disorder. Continue GI and DVT prophylaxis. Continue incentive spirometry.. transfer patient to a monitor bed on selective, once a bed is available. Consider JANY in the next couple of days. This is to be addressed by cardiology. Continue to titrate oxygen down, presently on 10 L high flow nasal cannula Overall prognosis remains extremely poor and guarded, we'll continue to follow. Time with Patient: Less than 30
[2019-03-09 12:03] LABS: Glucose,Whole Blood 261 mg/dL (75-99)
[2019-03-09 12:31] LABS: Glucose,Whole Blood 186 mg/dL (75-99)
[2019-03-09 17:07] LABS: Glucose,Whole Blood 146 mg/dL (75-99)
[2019-03-09] MEDS: ATORVASTATIN 20 MG TAB PO SCH (20:52)
[2019-03-09 21:11] LABS: Glucose,Whole Blood 139 mg/dL (75-99)
[2019-03-09] MEDS: SODIUM CHLORIDE 0.9% 1,000 ML IV SCH (23:33)
[2019-03-10] MEDS: IPRATROPIUM-ALBUTEROL 3 ML NEB INHALATION SCH ×5 (03:25→20:19)
[2019-03-10 04:52] LABS: HCT 48.5 % (39.0-53.0); Hypochromasia Slight; MCH 28.6 pg (25.0-35.0); MCHC 30.9 g/dL (31.0-37.0); MCV 92.5 fL (80.0-100.0); Mean Platelet Volume 10.8; Platelet Count 145 k/uL (150-450); RBC 5.24 m/uL (4.30-5.90); RDW 14.7 % (11.5-15.5); WBC 7.7 k/uL (3.8-10.6)
[2019-03-10 04:54] LABS: Calcium 8.8 mg/dL (8.4-10.2)
[2019-03-10 05:31] LABS: Eosinophils # (M) 0.08 k/uL (0-0.7); Lymphocytes # (M) 0.69 k/uL (1.0-4.8); Monocytes # (M) 1.31 k/uL (0-1.0); Neutrophils # (M) 5.62 k/uL (1.3-7.7); Neutrophils % (M) 73 %; Nucleated Red Blood Cells 0 /100 WBC (0-0); Total Cells Counted 100
[2019-03-10 05:32] LABS: Anisocytosis (M) Present; Ovalocytes Present
[2019-03-10] MEDS: INSULIN ASPART (NovoLOG) 100 UNIT/ML VIAL SQ SCH ×4 (06:40→20:27)
[2019-03-10] MEDS: PANTOPRAZOLE 40 MG TABLET PO SCH (06:41)
[2019-03-10 06:58] LABS: Glucose,Whole Blood 116 mg/dL (75-99)
--- NOTE | 2019-03-10 08:11 | XR ---
EXAMINATION TYPE: XR chest 1V DATE OF EXAM: 03/10/2019 COMPARISON: 03/08/2019 HISTORY: 79-year-old male CHF TECHNIQUE: Single frontal view of the chest is obtained. FINDINGS: Left subclavian CVC tip at the mid to lower SVC. Heart remains moderately enlarged. Contin ued small effusions with focal bibasilar opacities, stable to minimally improved. IMPRESSION: 1. Continued moderate cardiomegaly with pulmonary vascular congestion. 2. Small bilateral pleural effusions with prominent adjacent atelectasis and/or consolidation is stab le to slightly improved.
[2019-03-10] MEDS: SPIRONOLACTONE 25 MG TAB PO SCH ×2 (09:14→20:27)
[2019-03-10] MEDS: ASPIRIN 81 MG PO SCH (09:14)
[2019-03-10] MEDS: METOPROLOL TARTRATE 25 MG TAB PO SCH ×3 (09:15→20:27)
[2019-03-10] MEDS: CEFEPIME 2 GM in SODIUM CHLORIDE 0.9% 100 ML IVPB SCH ×2 (09:15→20:26)
[2019-03-10] MEDS: levETIRAcetam 500 MG TAB PO SCH ×2 (09:15→20:27)
[2019-03-10] MEDS: APIXABAN 5 MG TAB PO SCH ×2 (09:15→20:27)
[2019-03-10] MEDS: FUROSEMIDE 10 MG/ML 4 ML VIAL IV SCH ×2 (09:15→16:25)
--- NOTE | 2019-03-10 09:54 | P.PN ---
Subjective Progress Note Date: 03/10/19 This is a 79-year-old gentleman with history of severe aortic stenosis who was admitted to the hospital with significant pulmonary edema. Patient is still intubated. Patient is diuresing well. IV Lasix was cut back to 5 mg yesterday. He is also on IV Cardizem drip. He responds to verbal stimuli. Chest x-ray showed some infiltrates. We'll continue with IV Lasix drip and also Cardizem until patient is extubated. Subsequently open switch medication to by mouth diuretics and the Cardizem. Patient eventually may need cardiac catheterization and also possible aortic valve replacement. 03/06/2019: This patient with severe aortic stenosis was admitted with CHF and pulmonary edema. Patient is extubated. He is a sitting up and seemed to be slightly lethargic but easily arousable. Doesn't appear to be in acute distress. Patient is on IV Lasix and diuresing well. His CO2 is going up and patient was initiated on Diamox by the city editor. Patient is going to have an ultrasound of the chest to see if there is a fluid with that could be tapped. Patient is tul[place] fibrillation. Chest x-ray showed cardiomegaly and bilateral pleural effusion and findings of CHF. We'll continue current medical therapy including IV Lasix. Patient may need further evaluation and possible aortic valve replacement. Prognosis is guarded. 03/07/2019: Patient remains relatively stable. He is a sitting up in the chair, alert and oriented and doesn't appear to be in acute distress. He is in atrial fibrillation with controlled and corresponds. Patient is on Eliquis and also IV Cardizem and metoprolol. He is also on IV Lasix drip and Aldactone. I'm going to discontinue IV Cardizem and increase the dose of the metoprolol to 25 mg by mouth 3 times a day. His blood pressure is about 110/70. I discussed with him about aortic stenosis and need for possible valve replacement. At this point, patient wants to think about it. Probably can be taken off the IV Lasix and started on bolus of IV Lasix or by mouth Lasix. Increase activity as tolerated. When patient is gradient discussed with Dr. Sales regarding doing a cardiac catheterization. 03/08/2019: The patient's was improvement. He seemed to be less short of breath and seemed to be a new more energetic. A chest x-ray shows improvement. We can switch IV Lasix drip to IV boluses. His heart rate is controlled with metoprolol. He is off Cardizem drip. His lungs show diminished breath sounds at bases. I discussed with patient about further evaluation of the aortic valve disease. Patient wants to think about it and discuss with his . We will continue current medical therapy. Possible transfer to telemetry unit. Prognosis is guarded. Patient is still in high flow oxygen supplement. 03/09/2019: Patient is a feeling better and seemed to be in no acute distress. Patient is sitting up in the chair. His lungs show few crackles at bases. Could be related to check to assess. Patient is advised to increase incentive spirometry. Patient is in atrial fibrillation but rate is controlled. He just on metoprolol at this time. He is on IV bolus of Lasix which can be changed to by mouth Lasix. Patient is being transferred to telemetry unit. Patient hasn't decided about further workup regarding his aortic stenosis. When patient is ready oh may proceed with JANY first. Prognosis still guarded 03/10/2019: Patient continues to be relatively stable. Doesn't appear in acute distress. Chest x-ray shows some findings of CHF. Lungs show a few rales at the bases. Patient is still on IV Lasix. He hasn't decided about further evaluation regarding aortic stenosis. Will transfer to telemetry unit and increase activity. If patient agrees, we'll may proceed with a JANY examination and cardiac catheterization. Objective - Vital Signs Vital signs: Vital Signs Temp 97.6 F 03/10/19 08:00 Pulse 101 H 03/10/19 09:00 Resp 24 03/10/19 09:00 BP 109/80 03/10/19 09:00 Pulse Ox 92 L 03/10/19 09:00 Intake & Output 03/09/19 03/10/19 03/10/19 18:59 06:59 18:59 Intake Total 260 420 260 Output Total 1480 1250 145 Balance -1220 -830 115 Weight 95.6 kg Intake: IV 260 320 160 Cefepime 2 gm In Sodium 100 100 100 Chloride 0.9% 100 ml @ 200 mls/hr IVPB Q12HR [facility] Rx#:[id number] Sodium Chloride 0.9% 1, 160 220 60 000 ml @ 20 mls/hr IV . Q24H [facility] Rx#:[id number] Oral 100 100 Output: Urine 1480 1250 145 Other: Voiding Method Indwelling Catheter Indwelling Catheter Indwelling Catheter # Bowel Movements 1 ABP, PAP, CO, CI - Last Documented Arterial Blood Pressure 115/65 - Exam GENERAL EXAM: Patient is intubated but follows commands HEENT: Normocephalic. Normal reaction of pupils, equal size, normal range of ex traocular motion. No erythema or exudates in the throat. NECK: No masses, no nuchal rigidity. CHEST: No chest wall deformity. LUNGS: Bibasilar rales HEART: S1 and S2 normal ABDOMEN: Soft SKIN: No rashes CENTRAL NERVOUS SYSTEM: No focal deficits. EXTREMITIES: No cyanosis, clubbing or edema. - Labs CBC & Chem 7: 03/10/19 04:20 03/10/19 04:20 Labs: Abnormal Lab Results - Last 24 Hours (Table) 03/09/19 03/09/19 03/09/19 Range/Units 11:51 12:20 16:55 MCHC (31.0-37.0) g/dL Plt Count (150-450) k/uL Lymphocytes # (Manual) (1.0-4.8) k/uL Monocytes # (Manual) (0-1.0) k/uL Sodium (137-145) mmol/L Chloride (98-107) mmol/L Carbon Dioxide (22-30) mmol/L BUN (9-20) mg/dL Glucose (74-99) mg/dL POC Glucose (mg/dL) 261 H 186 H 146 H (75-99) mg/dL 03/09/19 03/10/19 03/10/19 Range/Units 20:59 04:20 04:20 MCHC 30.9 L (31.0-37.0) g/dL Plt Count 145 L (150-450) k/uL Lymphocytes # (Manual) 0.69 L (1.0-4.8) k/uL Monocytes # (Manual) 1.31 H (0-1.0) k/uL Sodium 136 L (137-145) mmol/L Chloride 95 L (98-107) mmol/L Carbon Dioxide 35 H (22-30) mmol/L BUN 31 H (9-20) mg/dL Glucose 120 H (74-99) mg/dL POC Glucose (mg/dL) 139 H (75-99) mg/dL 03/10/19 Range/Units 06:36 MCHC (31.0-37.0) g/dL Plt Count (150-450) k/uL Lymphocytes # (Manual) (1.0-4.8) k/uL Monocytes # (Manual) (0-1.0) k/uL Sodium (137-145) mmol/L Chloride (98-107) mmol/L Carbon Dioxide (22-30) mmol/L BUN (9-20) mg/dL Glucose (74-99) mg/dL POC Glucose (mg/dL) 116 H (75-99) mg/dL Assessment and Plan (1) Pulmonary edema Current Visit: Yes Status: Acute Code(s): J81.1 - CHRONIC PULMONARY EDEMA SNOMED Code(s): 93897047 (2) Severe aortic stenosis Current Visit: Yes Status: Acute Code(s): I35.0 - NONRHEUMATIC AORTIC (VALVE) STENOSIS SNOMED Code(s): 21423614 (3) Chronic a-fib Current Visit: No Status: Acute Code(s): I48.2 - CHRONIC ATRIAL FIBRILLATION * DO NOT USE * SNOMED Code(s): 813323990 (4) HTN (hypertension) Current Visit: No Status: Acute Code(s): I10 - ESSENTIAL (PRIMARY) HYPERTENSION SNOMED Code(s): 09628860 Plan: Overall, patient is showing improvement. Patient is Supple Telemetry Unit. When Patient Decides to Have Further Evaluation, We'll Consider JANY and Possible Cardiac Catheterization
--- NOTE | 2019-03-10 11:25 | P.PN ---
Subjective Progress Note Date: 03/10/19 Principal diagnosis: Acute hypoxic respiratory failure secondary to congestive heart failure, secondary to severe aortic stenosis severe mitral regurgitation, preserved LV function. on 03/06/2019 the patient is extubated and currently is on oxygen at 8 L per minute nasal cannula with a pulse ox of 93%. He is on a Lasix drip at 5 mg an hour. He continues to make excellent urine output and he is net fluid balance over the past 24 hours is been - 1.3 L. Nevertheless, despite ongoing diuresis, the chest x-ray still showing Ludy megaly and worsening in CHF. As mentioned earlier, the patient has severe aortic stenosis. He is still in atrial fibrillation. Norepinephrine infusion is being utilized for blood pressure control and currently is running at 0.06 units per KG per minute. His serum bicarb is up and on his blood gases he has developed some metabolic alkalosis. Serum bicarbonate was up to 34. I'm going to give him 2 doses of Diamox for now. Otherwise, he is weak. He is awake. Is following commands. He did have dinner yesterday and he did have breakfast this morning. No fever. No chills. Will be given an incentive spirometer.As mentioned earlier, the patient has severe aortic stenosis. He has a valve area of 0.5 cm. His ejection fraction is within normal limits with an EF of around 50-55%. He has severe pulmonary hypertension with a PA Jenny of 67. He remains on IV cefepime. This is empiric antibiotic coverage. No fever. No chills Reevaluated today on 03/07/2019, patient remains in the intensive care unit, however his overall status remains marginal, he is on 15 L high flow nasal cannula, remains on Lasix at 5 mg per hour. Chest x-ray continues to show evidence of pulmonary edema and bilateral airspace disease. According to the patient is feeling much better today compared to the last few days, patient was extubated 2 days ago, and he seems to be tolerating the extubation well, but of course his overall pulmonary status is marginal. His urine output is excellent, hence I will keep him on Lasix at 5 mg per hour drip. Remains on antibiotics coverage empirically. CBC today is normal. Electrode was are normal. BUN is 28 creatinine is 1.10. Creatinine on admission was 1.48. Hence it seems to be improving in spite of aggressive diuresis. Reevaluated today on 03/08/2019, patient is now on 10 L high flow nasal cannula, O2 saturations 95%, patient is feeling better, and his chest x-ray is showing improvement of his pulmonary edema, remains on Lasix drip which I transitioned to IV Lasix 40 mg IV push every 8 hours.patient is feeling better breathing easier. His CBC is relatively normal electrolytes are basically normal except for bicarb of 35 BUN is 28 creatinine of 1.11.small bilateral pleural effusions noted, bibasilar atelectasis is also noted. Overall improvement is noted on the chest x-ray Reevaluated today on 03/09/2019, patient remains on high flow nasal cannula, O2 saturation is in the low 90s, however clinically the patient is feeling better, patient is presently on overflow in the intensive care unit, he is supposed to get a bed on selective/monitor bed. Continues to have crackles at the bases especially at the right base. Patient is in atrial fibrillation but rate seems to be controlled. Remains on metoprolol. He is on Lasix IV 40 mg every 8 hours. Cardiology is considering JANY on this patient to follow up on his severe aortic stenosis. Labs today were reviewed including his CBC which is normal, a left was are normal, BUN is 32 creatinine is 1.13. Improved compared to creatinine on admission which was 1.48. Reevaluated today on 03/10/2019, remains in the ICU as an overflow, remains on a high flow nasal cannula, remains on IV push Lasix, doing better, breathing ea sier. Less cough and less wheezing less shortness of breath. Chest x-ray continues to show improvement, but his interstitial edema and infiltrates are not completely resolved. Patient remains in atrial fibrillation, but rate seems to be fairly well controlled. Patient is being considered for JANY. And cardiac catheterization. His CBC is relatively normal today, renal functioning is significantly improved BUN is 31 creatinine is 0.96. Objective - Vital Signs Vital signs: Vital Signs Temp 97.6 F 03/10/19 08:00 Pulse 99 03/10/19 11:06 Resp 10 L 03/10/19 10:00 BP 105/74 03/10/19 10:00 Pulse Ox 93 L 03/10/19 10:00 Intake & Output 03/09/19 03/10/19 03/10/19 18:59 06:59 18:59 Intake Total 260 420 280 Output Total 1480 1250 270 Balance -1220 -830 10 Weight 95.6 kg Intake: IV 260 320 180 Cefepime 2 gm In Sodium 100 100 100 Chloride 0.9% 100 ml @ 200 mls/hr IVPB Q12HR [facility] Rx#:[id number] Sodium Chloride 0.9% 1, 160 220 80 000 ml @ 20 mls/hr IV . Q24H [facility] Rx#:[id number] Oral 100 100 Output: Urine 1480 1250 270 Other: Voiding Method Indwelling Catheter Indwelling Catheter Indwelling Catheter # Bowel Movements 1 ABP, PAP, CO, CI - Last Documented Arterial Blood Pressure 118/70 - Exam Physical Exam: Revealed 79-year-old white male, on high flow nasal cannula. Head: Atraumatic normocephalic. HEENT:[Neck is supple.] [No neck masses.] [No thyromegaly.] [No JVD.] PERRLA, EOMI, no icterus. Chest: [Symmetrical chest expansion, crackles at the bases.. Mostly at the right base. No wheezes. Cardiac Exam: [Irregular irregular rhythm, normal S1 and S2, 3/6 systolic murmur at the left lower sternal border. Radiating to the neck. Likely secondary to aortic stenosis. Abdomen: [Obese, Soft, nontender, no megaly, no rebound, no guarding, normal bowel sounds.] Extremities: [No clubbing, trace of bipedal edema, no cyanosis.] Neurological Exam: Alert oriented 3, chronic left-sided weakness noted related to previous CVA, patient has left-sided hemiparesis. Skin: No rashes. Psychiatric: Normal mood, affect and normal mental status examination. - Labs CBC & Chem 7: 03/10/19 04:20 03/10/19 04:20 Labs: Abnormal Lab Results - Last 24 Hours (Table) 03/09/19 03/09/19 03/09/19 Range/Units 11:51 12:20 16:55 MCHC (31.0-37.0) g/dL Plt Count (150-450) k/uL Lymphocytes # (Manual) (1.0-4.8) k/uL Monocytes # (Manual) (0-1.0) k/uL Sodium (137-145) mmol/L Chloride (98-107) mmol/L Carbon Dioxide (22-30) mmol/L BUN (9-20) mg/dL Glucose (74-99) mg/dL POC Glucose (mg/dL) 261 H 186 H 146 H (75-99) mg/dL 03/09/19 03/10/19 03/10/19 Range/Units 20:59 04:20 04:20 MCHC 30.9 L (31.0-37.0) g/dL Plt Count 145 L (150-450) k/uL Lymphocytes # (Manual) 0.69 L (1.0-4.8) k/uL Monocytes # (Manual) 1.31 H (0-1.0) k/uL Sodium 136 L (137-145) mmol/L Chloride 95 L (98-107) mmol/L Carbon Dioxide 35 H (22-30) mmol/L BUN 31 H (9-20) mg/dL Glucose 120 H (74-99) mg/dL POC Glucose (mg/dL) 139 H (75-99) mg/dL 03/10/19 Range/Units 06:36 MCHC (31.0-37.0) g/dL Plt Count (150-450) k/uL Lymphocytes # (Manual) (1.0-4.8) k/uL Monocytes # (Manual) (0-1.0) k/uL Sodium (137-145) mmol/L Chloride (98-107) mmol/L Carbon Dioxide (22-30) mmol/L BUN (9-20) mg/dL Glucose (74-99) mg/dL POC Glucose (mg/dL) 116 H (75-99) mg/dL Assessment and Plan Assessment: Impression: Acute hypoxic respiratory failure secondary to pulmonary edema secondary to severe valvular heart disease including aortic stenosis and mitral regurgitation. Preserved LV function noted on the echocardiogram. Severe aortic stenosis and severe mitral regurgitation. Possible non-ST segment elevation myocardial infarction with elevated troponin. 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 seizure disorder, on Keppra. Benign essential hypertension. History of prostate cancer and previous radiation therapy Acute kidney injury, resolved. Recommendation: Continue Lasix , presently on 40 mg IV push every 8 hours. Continue Aldactone 25 mg by mouth twice a day. Continue Eliquis. Continue Keppra Continue GI and DVT prophylaxis. Continue incentive spirometry.. JANY and cardiac catheterization is being considered by cardiology, decision has not been made yet. Continue to titrate oxygen down, presently on 10 L high flow nasal cannula We'll continue to follow. Time with Patient: Less than 30
[2019-03-10 12:08] LABS: Glucose,Whole Blood 150 mg/dL (75-99)
[2019-03-10 17:22] LABS: Glucose,Whole Blood 243 mg/dL (75-99)
--- NOTE | 2019-03-10 18:25 | P.PN ---
Subjective Progress Note Date: 03/10/19 Principal diagnosis: acute hypoxic respiratory failure secondary to pulmonary edema/acute CHF. patient a pleasant 79-year-old white male admitted through the emergency department into the ICU for acute respiratory failure and pulmonary edema 03/08/2019 patient is now on 10 L high flow nasal cannula, O2 saturations 95%, patient is feeling better, and his chest x-ray is showing improvement of his pulmonary edema, remains on Lasix drip which I transitioned to IV Lasix 40 mg IV push every 8 hours.patient is feeling better breathing easier. His CBC is relatively normal electrolytes are basically normal except for bicarb of 35 BUN is 28 creatinine of 1.11.small bilateral pleural effusions noted, bibasilar atelectasis is also noted. Overall improvement is noted on the chest x-ray 03/09/2019, patient is seen and evaluated with and daughter at bedside; family reports that have not yet been able to make decision about possible JANY remains on high flow nasal cannula, O2 saturation is in the low 90s, however clinically the patient is feeling better, patient is presently on overflow in the intensive care unit, he is supposed to get a bed on selective/monitor bed. Continues to have crackles at the bases especially at the right base. Patient is in atrial fibrillation but rate seems to be controlled. Remains on metoprolol. He is on Lasix IV 40 mg every 8 hours. Cardiology is considering JANY on this patient to follow up on his severe aortic stenosis. Labs today were reviewed including his CBC which is normal, a left was are normal, BUN is 32 creatinine is 1.13. Improved compared to creatinine on admission which was 1.48. 03/10/2019 Patient remains in the ICU as an overflow, patient being transported back to bed from bedside chair; remains weak and needs maximal assistance Patient remains on a high flow nasal cannula, remains on IV push Lasix, doing better, breathing easier. Less cough and less wheezing less shortness of breath. Chest x-ray continues to show improvement, but his interstitial edema and infiltrates are not completely resolved. Patient remains in atrial fibrillation, but rate seems to be fairly well controlled. Patient is being considered for JANY and cardiac catheterization. His CBC is relatively normal today, renal functioning is significantly improved BUN is 31 creatinine is 0.96. Detailed discussion with patient's and daughter at bedside about recommendations for JANY and cardiac catheterization; according to she has to have another meeting with the family members before they would come to a decision Objective - Vital Signs Vital signs: Vital Signs Temp 97.5 F L 03/10/19 12:00 Pulse 84 03/10/19 14:53 Resp 17 03/10/19 14:00 BP 96/66 03/10/19 14:00 Pulse Ox 95 03/10/19 14:00 Intake & Output 03/09/19 03/10/19 03/10/19 18:59 06:59 18:59 Intake Total 260 420 280 Output Total 1480 1250 585 Balance -1220 -830 -305 Weight 95.6 kg Intake: IV 260 320 180 Cefepime 2 gm In Sodium 100 100 100 Chloride 0.9% 100 ml @ 200 mls/hr IVPB Q12HR [facility] Rx#:[id number] Sodium Chloride 0.9% 1, 160 220 80 000 ml @ 20 mls/hr IV . Q24H [facility] Rx#:[id number] Oral 100 100 Output: Urine 1480 1250 585 Other: Voiding Method Indwelling Catheter Indwelling Catheter Indwelling Catheter # Bowel Movements 1 ABP, PAP, CO, CI - Last Documented Arterial Blood Pressure 100/61 - Exam Patient is lying in the bed comfortably, no acute distress, awake alert and oriented.lethargic and weak. HEENT: Normocephalic. Neck is supple. Pupils reactive. Nostrils clear. Oral cavity is moist. Ears reveal no drainage. Neck reveals no JVD, carotid bruits, or thyromegaly. CHEST EXAMINATION: Trachea is central. Symmetrical expansion. Bibasilar diminished breath sounds nd crackles.. CARDIAC: Normal S1, S2 with no gallops. No murmurs ABDOMEN: Soft. Bowel sounds normal. No organomegaly. No abdominal bruits. Extremities: 2+ edema. No clubbing or cyanosis Neurologically awake, alert, oriented x3 with well-coordinated movements. No focal deficits noted Skin: No rash or skin lesions. - Labs CBC & Chem 7: 03/10/19 04:20 03/10/19 04:20 Labs: Abnormal Lab Results - Last 24 Hours (Table) 03/09/19 03/09/19 03/10/19 Range/Units 16:55 20:59 04:20 MCHC 30.9 L (31.0-37.0) g/dL Plt Count 145 L (150-450) k/uL Lymphocytes # (Manual) 0.69 L (1.0-4.8) k/uL Monocytes # (Manual) 1.31 H (0-1.0) k/uL Sodium (137-145) mmol/L Chloride (98-107) mmol/L Carbon Dioxide (22-30) mmol/L BUN (9-20) mg/dL Glucose (74-99) mg/dL POC Glucose (mg/dL) 146 H 139 H (75-99) mg/dL 03/10/19 03/10/19 03/10/19 Range/Units 04:20 06:36 11:55 MCHC (31.0-37.0) g/dL Plt Count (150-450) k/uL Lymphocytes # (Manual) (1.0-4.8) k/uL Monocytes # (Manual) (0-1.0) k/uL Sodium 136 L (137-145) mmol/L Chloride 95 L (98-107) mmol/L Carbon Dioxide 35 H (22-30) mmol/L BUN 31 H (9-20) mg/dL Glucose 120 H (74-99) mg/dL POC Glucose (mg/dL) 116 H 150 H (75-99) mg/dL Assessment and Plan Assessment: acute hypoxic respiratory failure secondary to pulmonary edema. Improved now. Currently on high flow oxygen we are nasal Acute on chronic CHF due diastolic dysfunction. underlying severe aortic stenosis Bilateral pleural effusion severe aortic stenosis elevated troponin levellikely due to CHF. Possible non-ST elevated NV Lactic acidosis resolved Acute kidney injury with creatinine level I.48 on admission. Improved to 0.96 today. Chronic atrial fibrillation on anticoagulation on Eliquis at home.was on hold due to hematuria but restarted after urology clearance. Hematuria improved. Seen by urology. Hypovolemic/cardiogenic shock requiring pressors support Previous history of CVA history of seizures Prostate cancer status post radiation therapy Hyperlipidemia Hypertension plan: Patient is being continued on Lasix drip . Currently off pressor support. Critical care team is following. Monitor H&H and renal function. Continued on empiric antibiotics in the form of cefepime. Follow closely and further recommendations based on the clinical course. Cardiology is on board.prognosis is guarded. Time with Patient: Greater than 30
[2019-03-10] MEDS: ATORVASTATIN 20 MG TAB PO SCH (20:27)
[2019-03-10] MEDS: SODIUM CHLORIDE 0.9% 1,000 ML IV SCH (20:27)
[2019-03-10 20:38] LABS: Glucose,Whole Blood 141 mg/dL (75-99)
[2019-03-11] MEDS: IPRATROPIUM-ALBUTEROL 3 ML NEB INHALATION SCH ×6 (00:04→20:23)
[2019-03-11] MEDS: FUROSEMIDE 10 MG/ML 4 ML VIAL IV SCH ×3 (00:12→17:42)
[2019-03-11 06:00] LABS: HGB 15.8 gm/dL (13.0-17.5); Hypochromasia Moderate; MCHC 30.9 g/dL (31.0-37.0); MCV 93.9 fL (80.0-100.0); Platelet Count 145 k/uL (150-450); RBC 5.43 m/uL (4.30-5.90); RDW 14.6 % (11.5-15.5); WBC 9.3 k/uL (3.8-10.6)
[2019-03-11 06:18] LABS: Calcium 9.5 mg/dL (8.4-10.2)
[2019-03-11 06:20] LABS: Potassium 4.9 mmol/L (3.5-5.1)
[2019-03-11 06:48] LABS: Band Neutrophils % 10 %; Eosinophils # (M) 0.37 k/uL (0-0.7); Lymphocytes # (M) 1.49 k/uL (1.0-4.8); Monocytes # (M) 0.65 k/uL (0-1.0); Neutrophils % (M) 63 %; Nucleated Red Blood Cells 0 /100 WBC (0-0); Total Cells Counted 100
[2019-03-11 06:54] LABS: Large Platelets Present
[2019-03-11] MEDS: PANTOPRAZOLE 40 MG TABLET PO SCH (06:57)
[2019-03-11] MEDS: INSULIN ASPART (NovoLOG) 100 UNIT/ML VIAL SQ SCH ×4 (06:57→20:49)
[2019-03-11 06:59] LABS: Anisocytosis (M) Present
[2019-03-11 07:00] LABS: Poikilocytosis (M) Present
[2019-03-11 07:01] LABS: Polychromasia Present
[2019-03-11 07:01] LABS: Glucose,Whole Blood 118 mg/dL (75-99)
--- NOTE | 2019-03-11 07:31 | XR ---
EXAMINATION TYPE: XR chest 1V portable DATE OF EXAM: 03/11/2019 COMPARISON: 02/18/2019 HISTORY: Shortness of breath FINDINGS: There is improved pulmonary venous congestion. Persistent cardiomegaly and small basilar effusions. C entral venous line unchanged in position. IMPRESSION: Improving features of congestive failure. Infiltrates of other etiology are not excluded. Clinical correlation and progress studies are recommended.
--- NOTE | 2019-03-11 09:58 | P.PN ---
Subjective Progress Note Date: 03/11/19 This is a 79-year-old gentleman with history of severe aortic stenosis who was admitted to the hospital with significant pulmonary edema. Patient is still intubated. Patient is diuresing well. IV Lasix was cut back to 5 mg yesterday. He is also on IV Cardizem drip. He responds to verbal stimuli. Chest x-ray showed some infiltrates. We'll continue with IV Lasix drip and also Cardizem until patient is extubated. Subsequently open switch medication to by mouth diuretics and the Cardizem. Patient eventually may need cardiac catheterization and also possible aortic valve replacement. 03/06/2019: This patient with severe aortic stenosis was admitted with CHF and pulmonary edema. Patient is extubated. He is a sitting up and seemed to be slightly lethargic but easily arousable. Doesn't appear to be in acute distress. Patient is on IV Lasix and diuresing well. His CO2 is going up and patient was initiated on Diamox by the youth career specialist. Patient is going to have an ultrasound of the chest to see if there is a fluid with that could be tapped. Patient is [place] fibrillation. Chest x-ray showed cardiomegaly and bilateral pleural effusion and findings of CHF. We'll continue current medical therapy including IV Lasix. Patient may need further evaluation and possible aortic valve replacement. Prognosis is guarded. 03/07/2019: Patient remains relatively stable. He is a sitting up in the chair, alert and oriented and doesn't appear to be in acute distress. He is in atrial fibrillation with controlled and corresponds. Patient is on Eliquis and also IV Cardizem and metoprolol. He is also on IV Lasix drip and Aldactone. I'm going to discontinue IV Cardizem and increase the dose of the metoprolol to 25 mg by mouth 3 times a day. His blood pressure is about 110/70. I discussed with him about aortic stenosis and need for possible valve replacement. At this point, patient wants to think about it. Probably can be taken off the IV Lasix and started on bolus of IV Lasix or by mouth Lasix. Increase activity as tolerated. When patient is gradient discussed with Dr. Sales regarding doing a cardiac catheterization. 03/08/2019: The patient's was improvement. He seemed to be less short of breath and seemed to be a new more energetic. A chest x-ray shows improvement. We can switch IV Lasix drip to IV boluses. His heart rate is controlled with metoprolol. He is off Cardizem drip. His lungs show diminished breath sounds at bases. I discussed with patient about further evaluation of the aortic valve disease. Patient wants to think about it and discuss with his . We will continue current medical therapy. Possible transfer to telemetry unit. Prognosis is guarded. Patient is still in high flow oxygen supplement. 03/09/2019: Patient is a feeling better and seemed to be in no acute distress. Patient is sitting up in the chair. His lungs show few crackles at bases. Could be related to check to assess. Patient is advised to increase incentive spirometry. Patient is in atrial fibrillation but rate is controlled. He just on metoprolol at this time. He is on IV bolus of Lasix which can be changed to by mouth Lasix. Patient is being transferred to telemetry unit. Patient hasn't decided about further workup regarding his aortic stenosis. When patient is ready oh may proceed with JANY first. Prognosis still guarded 03/10/2019: Patient continues to be relatively stable. Doesn't appear in acute distress. Chest x-ray shows some findings of CHF. Lungs show a few rales at the bases. Patient is still on IV Lasix. He hasn't decided about further evaluation regarding aortic stenosis. Will transfer to telemetry unit and increase activity. If patient agrees, we'll may proceed with a JANY examination and cardiac catheterization. 03/11/2019. Patient continues to be stable. His chest x-ray shows improvement CHF. Lungs appeared to be fairly clear at this time. Heart is irregular but rate is controlled. IV Lasix could be discontinued and start by mouth Lasix. I discussed again with patient regarding further evaluation. He hasn't decided yet. If he decides probably will do JANY first and if that suggests that aortic stenosis, severe, may consider cardiac catheterization. Prognosis is guarded Objective - Vital Signs Vital signs: Vital Signs Temp 98 F 03/11/19 04:00 Pulse 84 03/11/19 08:42 Resp 18 03/11/19 04:00 BP 118/85 03/11/19 04:00 Pulse Ox 97 03/11/19 04:00 Intake & Output 03/10/19 03/11/19 03/11/19 18:59 06:59 18:59 Intake Total 280 100 Output Total 1010 775 Balance -730 -675 Weight 95.2 kg Intake: IV 180 100 Cefepime 2 gm In Sodium 100 100 Chloride 0.9% 100 ml @ 200 mls/hr IVPB Q12HR [facility] Rx#:[id number] Sodium Chloride 0.9% 1, 80 000 ml @ 20 mls/hr IV . Q24H [facility] Rx#:[id number] Oral 100 Output: Urine 1010 775 Other: Voiding Method Indwelling Catheter Indwelling Catheter ABP, PAP, CO, CI - Last Documented Arterial Blood Pressure 100/61 - Exam GENERAL EXAM: Patient is intubated but follows commands HEENT: Normocephalic. Normal reaction of pupils, equal size, normal range of extraocular motion. No erythema or exudates in the throat. NECK: No masses, no nuchal rigidity. CHEST: No chest wall deformity. LUNGS: Bibasilar rales HEART: S1 and S2 normal ABDOMEN: Soft SKIN: No rashes CENTRAL NERVOUS SYSTEM: No focal deficits. EXTREMITIES: No cyanosis, clubbing or edema. - Labs CBC & Chem 7: 03/11/19 05:15 03/11/19 05:15 Labs: Abnormal Lab Results - Last 24 Hours (Table) 03/10/19 03/10/19 03/10/19 Range/Units 11:55 17:11 20:26 MCHC (31.0-37.0) g/dL Plt Count (150-450) k/uL Sodium (137-145) mmol/L Chloride (98-107) mmol/L Carbon Dioxide (22-30) mmol/L BUN (9-20) mg/dL Glucose (74-99) mg/dL POC Glucose (mg/dL) 150 H 243 H 141 H (75-99) mg/dL 03/11/19 03/11/19 03/11/19 Range/Units 05:15 05:15 06:49 MCHC 30.9 L (31.0-37.0) g/dL Plt Count 145 L (150-450) k/uL Sodium 136 L (137-145) mmol/L Chloride 93 L (98-107) mmol/L Carbon Dioxide 34 H (22-30) mmol/L BUN 36 H (9-20) mg/dL Glucose 118 H (74-99) mg/dL POC Glucose (mg/dL) 118 H (75-99) mg/dL Assessment and Plan (1) Pulmonary edema Current Visit: Yes Status: Acute Code(s): J81.1 - CHRONIC PULMONARY EDEMA SNOMED Code(s): 46209226 (2) Severe aortic stenosis Current Visit: Yes Status: Acute Code(s): I35.0 - NONRHEUMATIC AORTIC (VALVE) STENOSIS SNOMED Code(s): 73402318 (3) Chronic a-fib Current Visit: No Status: Acute Code(s): I48.2 - CHRONIC ATRIAL FIBRILLATION * DO NOT USE * SNOMED Code(s): 637224038 (4) HTN (hypertension) Current Visit: No Status: Acute Code(s): I10 - ESSENTIAL (PRIMARY) HYPERTENSION SNOMED Code(s): 20336955 Plan: Continue current medical therapy. Transfer to telemetry unit and increase activity and may switch to by mouth Lasix
[2019-03-11] MEDS: ASPIRIN 81 MG PO SCH (10:08)
[2019-03-11] MEDS: METOPROLOL TARTRATE 25 MG TAB PO SCH ×3 (10:08→22:08)
[2019-03-11] MEDS: APIXABAN 5 MG TAB PO SCH ×2 (10:08→20:49)
[2019-03-11] MEDS: levETIRAcetam 500 MG TAB PO SCH ×2 (10:09→20:49)
[2019-03-11] MEDS: CEFEPIME 2 GM in SODIUM CHLORIDE 0.9% 100 ML IVPB SCH ×2 (10:09→20:50)
[2019-03-11] MEDS: SPIRONOLACTONE 25 MG TAB PO SCH ×2 (10:09→20:50)
--- NOTE | 2019-03-11 10:34 | P.PN ---
Subjective Progress Note Date: 03/11/19 Principal diagnosis: Acute hypoxic respiratory failure secondary to congestive heart failure, secondary to severe aortic stenosis severe mitral regurgitation, preserved LV function. on 03/06/2019 the patient is extubated and currently is on oxygen at 8 L per minute nasal cannula with a pulse ox of 93%. He is on a Lasix drip at 5 mg an hour. He continues to make excellent urine output and he is net fluid balance over the past 24 hours is been - 1.3 L. Nevertheless, despite ongoing diuresis, the chest x-ray still showing Ludy megaly and worsening in CHF. As mentioned earlier, the patient has severe aortic stenosis. He is still in atrial fibrillation. Norepinephrine infusion is being utilized for blood pressure control and currently is running at 0.06 units per KG per minute. His serum bicarb is up and on his blood gases he has developed some metabolic alkalosis. Serum bicarbonate was up to 34. I'm going to give him 2 doses of Diamox for now. Otherwise, he is weak. He is awake. Is following commands. He did have dinner yesterday and he did have breakfast this morning. No fever. No chills. Will be given an incentive spirometer.As mentioned earlier, the patient has severe aortic stenosis. He has a valve area of 0.5 cm. His ejection fraction is within normal limits with an EF of around 50-55%. He has severe pulmonary hypertension with a PA Jenny of 67. He remains on IV cefepime. This is empiric antibiotic coverage. No fever. No chills Reevaluated today on 03/07/2019, patient remains in the intensive care unit, however his overall status remains marginal, he is on 15 L high flow nasal cannula, remains on Lasix at 5 mg per hour. Chest x-ray continues to show evidence of pulmonary edema and bilateral airspace disease. According to the patient is feeling much better today compared to the last few days, patient was extubated 2 days ago, and he seems to be tolerating the extubation well, but of course his overall pulmonary status is marginal. His urine output is excellent, hence I will keep him on Lasix at 5 mg per hour drip. Remains on antibiotics coverage empirically. CBC today is normal. Electrode was are normal. BUN is 28 creatinine is 1.10. Creatinine on admission was 1.48. Hence it seems to be improving in spite of aggressive diuresis. Reevaluated today on 03/08/2019, patient is now on 10 L high flow nasal cannula, O2 saturations 95%, patient is feeling better, and his chest x-ray is showing improvement of his pulmonary edema, remains on Lasix drip which I transitioned to IV Lasix 40 mg IV push every 8 hours.patient is feeling better breathing easier. His CBC is relatively normal electrolytes are basically normal except for bicarb of 35 BUN is 28 creatinine of 1.11.small bilateral pleural effusions noted, bibasilar atelectasis is also noted. Overall improvement is noted on the chest x-ray Reevaluated today on 03/09/2019, patient remains on high flow nasal cannula, O2 saturation is in the low 90s, however clinically the patient is feeling better, patient is presently on overflow in the intensive care unit, he is supposed to get a bed on selective/monitor bed. Continues to have crackles at the bases especially at the right base. Patient is in atrial fibrillation but rate seems to be controlled. Remains on metoprolol. He is on Lasix IV 40 mg every 8 hours. Cardiology is considering JANY on this patient to follow up on his severe aortic stenosis. Labs today were reviewed including his CBC which is normal, a left was are normal, BUN is 32 creatinine is 1.13. Improved compared to creatinine on admission which was 1.48. Reevaluated today on 03/10/2019, remains in the ICU as an overflow, remains on a high flow nasal cannula, remains on IV push Lasix, doing better, breathing ea sier. Less cough and less wheezing less shortness of breath. Chest x-ray continues to show improvement, but his interstitial edema and infiltrates are not completely resolved. Patient remains in atrial fibrillation, but rate seems to be fairly well controlled. Patient is being considered for JANY. And cardiac catheterization. His CBC is relatively normal today, renal functioning is significantly improved BUN is 31 creatinine is 0.96. Reevaluated today in the ICU on 03/11/2019, patient continues to do well clinically, chest x-ray continues to improve, and is much better today compared to the last few days. Patient remains on diuretics, antibiotics, bronchodilators, he is presently on overflow in the ICU, and I plan to transfer him to a medical surgical floor with remote monitor/telemetry. Clinically the patient is feeling great, he is down on his high flow nasal cannula, being tit rated accordingly, O2 saturations 97% on 10 L, requested further titration of his FiO2. Remains in atrial fibrillation with well-controlled rate. Remains on IV Lasix, patient is not yet decided regarding cardiac catheterization and JANY. That is being addressed by cardiology. Objective - Vital Signs Vital signs: Vital Signs Temp 97.7 F 03/11/19 10:00 Pulse 96 03/11/19 10:00 Resp 16 03/11/19 10:00 BP 107/72 03/11/19 10:00 Pulse Ox 95 03/11/19 10:00 Intake & Output 03/10/19 03/11/19 03/11/19 18:59 06:59 18:59 Intake Total 280 100 Output Total 1010 775 Balance -730 -675 Weight 95.2 kg 95.2 kg Intake: IV 180 100 Cefepime 2 gm In Sodium 100 100 Chloride 0.9% 100 ml @ 200 mls/hr IVPB Q12HR [facility] Rx#:[id number] Sodium Chloride 0.9% 1, 80 000 ml @ 20 mls/hr IV . Q24H [facility] Rx#:[id number] Oral 100 Output: Urine 1010 775 Other: Voiding Method Indwelling Catheter Indwelling Catheter ABP, PAP, CO, CI - Last Documented Arterial Blood Pressure 100/61 - Exam Physical Exam: Revealed 79-year-old white male, on 10 L high flow cannula Head: Atraumatic normocephalic. HEENT:[Neck is supple.] [No neck masses.] [No thyromegaly.] [No JVD.] PERRLA, EOMI, no icterus. Chest: [Symmetrical chest expansion, minimal crackles at the bases no rhonchi and no wheezes. Cardiac Exam: [Irregular irregular rhythm, normal S1 and S2, 3/6 systolic murmur at the left lower sternal border. Radiating to the neck. Likely secondary to aortic stenosis. Abdomen: [Obese, Soft, nontender, no megaly, no rebound, no guarding, normal bowel sounds.] Extremities: [No clubbing, trace of bipedal edema, no cyanosis.] Neurological Exam: Alert oriented 3, chronic left-sided weakness noted related to previous CVA, patient has left-sided hemiparesis. Skin: No rashes. Psychiatric: Normal mood, affect and normal mental status examination. - Labs CBC & Chem 7: 03/11/19 05:15 03/11/19 05:15 Labs: Abnormal Lab Results - Last 24 Hours (Table) 03/10/19 03/10/19 03/10/19 Range/Units 11:55 17:11 20:26 MCHC (31.0-37.0) g/dL Plt Count (150-450) k/uL Sodium (137-145) mmol/L Chloride (98-107) mmol/L Carbon Dioxide (22-30) mmol/L BUN (9-20) mg/dL Glucose (74-99) mg/dL POC Glucose (mg/dL) 150 H 243 H 141 H (75-99) mg/dL 03/11/19 03/11/19 03/11/19 Range/Units 05:15 05:15 06:49 MCHC 30.9 L (31.0-37.0) g/dL Plt Count 145 L (150-450) k/uL Sodium 136 L (137-145) mmol/L Chloride 93 L (98-107) mmol/L Carbon Dioxide 34 H (22-30) mmol/L BUN 36 H (9-20) mg/dL Glucose 118 H (74-99) mg/dL POC Glucose (mg/dL) 118 H (75-99) mg/dL Assessment and Plan Assessment: Impression: Acute hypoxic respiratory failure secondary to pulmonary edema secondary to severe valvular heart disease including aortic stenosis and mitral regurgitation. Preserved LV function noted on the echocardiogram. Severe aortic stenosis and severe mitral regurgitation. Possible non-ST segment elevation myocardial infarction with elevated troponin. 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 seizure disorder, on Keppra. Benign essential hypertension. History of prostate cancer and previous radiation therapy Acute kidney injury, resolved. Recommendation: Continue Lasix , will change IV Lasix to oral Lasix. Continue Aldactone 25 mg by mouth twice a day. Continue Eliquis. Continue Keppra Continue GI and DVT prophylaxis. Continue incentive spirometry.. JANY and cardiac catheterization is being considered by cardiology patient has not made a decision regarding cardiac catheterization and JANY. Continue to titrate oxygen down, keep O2 saturation at above 90%. Transfer patient to a medical surgical floor and keep on telemetry/remote. Overall prognosis remains extremely poor and guarded considering his underlying cardiac issues. We will continue to follow. Time with Patient: Less than 30
[2019-03-11 12:05] LABS: Glucose,Whole Blood 190 mg/dL (75-99)
[2019-03-11 17:24] LABS: Glucose,Whole Blood 115 mg/dL (75-99)
[2019-03-11 20:48] LABS: Glucose,Whole Blood 141 mg/dL (75-99)
[2019-03-11] MEDS: ATORVASTATIN 20 MG TAB PO SCH (20:49)
[2019-03-11] MEDS: SODIUM CHLORIDE 0.9% 1,000 ML IV SCH (22:08)
[2019-03-12] MEDS: FUROSEMIDE 10 MG/ML 4 ML VIAL IV SCH ×2 (00:07→09:14)
[2019-03-12] MEDS: IPRATROPIUM-ALBUTEROL 3 ML NEB INHALATION SCH ×7 (01:32→23:47)
[2019-03-12 07:00] LABS: Glucose,Whole Blood 98 mg/dL (75-99)
[2019-03-12] MEDS: INSULIN ASPART (NovoLOG) 100 UNIT/ML VIAL SQ SCH ×4 (07:52→21:22)
[2019-03-12] MEDS: CEFEPIME 2 GM in SODIUM CHLORIDE 0.9% 100 ML IVPB SCH (09:14)
[2019-03-12] MEDS: levETIRAcetam 500 MG TAB PO SCH ×2 (09:14→21:21)
[2019-03-12] MEDS: PANTOPRAZOLE 40 MG TABLET PO SCH (09:15)
[2019-03-12] MEDS: ASPIRIN 81 MG PO SCH (09:15)
[2019-03-12] MEDS: METOPROLOL TARTRATE 25 MG TAB PO SCH ×3 (09:15→21:21)
[2019-03-12] MEDS: SPIRONOLACTONE 25 MG TAB PO SCH ×2 (09:15→21:21)
[2019-03-12] MEDS: APIXABAN 5 MG TAB PO SCH ×2 (09:15→21:21)
--- NOTE | 2019-03-12 11:40 | P.PN ---
Subjective Progress Note Date: 03/12/19 Principal diagnosis: Acute hypoxic respiratory failure secondary to congestive heart failure, secondary to severe aortic stenosis severe mitral regurgitation, preserved LV function. on 03/06/2019 the patient is extubated and currently is on oxygen at 8 L per minute nasal cannula with a pulse ox of 93%. He is on a Lasix drip at 5 mg an hour. He continues to make excellent urine output and he is net fluid balance over the past 24 hours is been - 1.3 L. Nevertheless, despite ongoing diuresis, the chest x-ray still showing Ludy megaly and worsening in CHF. As mentioned earlier, the patient has severe aortic stenosis. He is still in atrial fibrillation. Norepinephrine infusion is being utilized for blood pressure control and currently is running at 0.06 units per KG per minute. His serum bicarb is up and on his blood gases he has developed some metabolic alkalosis. Serum bicarbonate was up to 34. I'm going to give him 2 doses of Diamox for now. Otherwise, he is weak. He is awake. Is following commands. He did have dinner yesterday and he did have breakfast this morning. No fever. No chills. Will be given an incentive spirometer.As mentioned earlier, the patient has severe aortic stenosis. He has a valve area of 0.5 cm. His ejection fraction is within normal limits with an EF of around 50-55%. He has severe pulmonary hypertension with a PA Jenny of 67. He remains on IV cefepime. This is empiric antibiotic coverage. No fever. No chills Reevaluated today on 03/07/2019, patient remains in the intensive care unit, however his overall status remains marginal, he is on 15 L high flow nasal cannula, remains on Lasix at 5 mg per hour. Chest x-ray continues to show evidence of pulmonary edema and bilateral airspace disease. According to the patient is feeling much better today compared to the last few days, patient was extubated 2 days ago, and he seems to be tolerating the extubation well, but of course his overall pulmonary status is marginal. His urine output is excellent, hence I will keep him on Lasix at 5 mg per hour drip. Remains on antibiotics coverage empirically. CBC today is normal. Electrode was are normal. BUN is 28 creatinine is 1.10. Creatinine on admission was 1.48. Hence it seems to be improving in spite of aggressive diuresis. Reevaluated today on 03/08/2019, patient is now on 10 L high flow nasal cannula, O2 saturations 95%, patient is feeling better, and his chest x-ray is showing improvement of his pulmonary edema, remains on Lasix drip which I transitioned to IV Lasix 40 mg IV push every 8 hours.patient is feeling better breathing easier. His CBC is relatively normal electrolytes are basically normal except for bicarb of 35 BUN is 28 creatinine of 1.11.small bilateral pleural effusions noted, bibasilar atelectasis is also noted. Overall improvement is noted on the chest x-ray Reevaluated today on 03/09/2019, patient remains on high flow nasal cannula, O2 saturation is in the low 90s, however clinically the patient is feeling better, patient is presently on overflow in the intensive care unit, he is supposed to get a bed on selective/monitor bed. Continues to have crackles at the bases especially at the right base. Patient is in atrial fibrillation but rate seems to be controlled. Remains on metoprolol. He is on Lasix IV 40 mg every 8 hours. Cardiology is considering JANY on this patient to follow up on his severe aortic stenosis. Labs today were reviewed including his CBC which is normal, a left was are normal, BUN is 32 creatinine is 1.13. Improved compared to creatinine on admission which was 1.48. Reevaluated today on 03/10/2019, remains in the ICU as an overflow, remains on a high flow nasal cannula, remains on IV push Lasix, doing better, breathing ea sier. Less cough and less wheezing less shortness of breath. Chest x-ray continues to show improvement, but his interstitial edema and infiltrates are not completely resolved. Patient remains in atrial fibrillation, but rate seems to be fairly well controlled. Patient is being considered for JANY. And cardiac catheterization. His CBC is relatively normal today, renal functioning is significantly improved BUN is 31 creatinine is 0.96. Reevaluated today in the ICU on 03/11/2019, patient continues to do well clinically, chest x-ray continues to improve, and is much better today compared to the last few days. Patient remains on diuretics, antibiotics, bronchodilators, he is presently on overflow in the ICU, and I plan to transfer him to a medical surgical floor with remote monitor/telemetry. Clinically the patient is feeling great, he is down on his high flow nasal cannula, being tit rated accordingly, O2 saturations 97% on 10 L, requested further titration of his FiO2. Remains in atrial fibrillation with well-controlled rate. Remains on IV Lasix, patient is not yet decided regarding cardiac catheterization and JANY. That is being addressed by cardiology. Reevaluated today on 03/12/2019, patient is feeling much better, he is down to 6 L nasal cannula, in no distress, O2 saturation is 94%. Asymptomatic, remains on diuretics, today I have learned that the patient will not have cardiac catheterization and JANY during this admission, hence patient could be considered for discharge planning in the next 24 hours. And follow-up with cardiology on outpatient basis. In the meantime we'll try to titrate his oxygen down hopefully could go down to his low as 4 L/m nasal cannula. And he may require home O2. CBC is relatively normal today. Electrolytes are relatively normal. BUN is 36 creatinine is 1.0 Objective - Vital Signs Vital signs: Vital Signs Temp 97.8 F 03/12/19 08:00 Pulse 77 03/12/19 09:39 Resp 15 03/12/19 08:00 BP 104/77 03/12/19 08:00 Pulse Ox 92 L 03/12/19 08:00 Intake & Output 03/11/19 03/12/19 03/12/19 18:59 06:59 18:59 Intake Total 960 100 Output Total 1100 950 Balance -140 -850 Weight 95.2 kg 95 kg Intake: IV 100 100 Cefepime 2 gm In Sodium 100 100 Chloride 0.9% 100 ml @ 200 mls/hr IVPB Q12HR [facility] Rx#:[id number] Oral 860 Output: Urine 1100 950 Other: Voiding Method Indwelling Catheter Indwelling Catheter Indwelling Catheter ABP, PAP, CO, CI - Last Documented Arterial Blood Pressure 100/61 - Exam Physical Exam: Revealed 79-year-old white male, on 6 L high flow nasal cannula Head: Atraumatic normocephalic. HEENT:[Neck is supple.] [No neck masses.] [No thyromegaly.] [No JVD.] PERRLA, EOMI, no icterus. Chest: [Symmetrical chest expansion, diminished breath sounds at the bases no rhonchi or wheezes.. Cardiac Exam: [Irregular irregular rhythm, normal S1 and S2, 3/6 systolic murmur at the left lower sternal border. Abdomen: [Obese, Soft, nontender, no megaly, no rebound, no guarding, normal bowel sounds.] Extremities: [No clubbing, trace of bipedal edema, no cyanosis.] Neurological Exam: Alert oriented 3, chronic left-sided weakness noted related to previous CVA, patient has left-sided hemiparesis. Skin: No rashes. Psychiatric: Normal mood, affect and normal mental status examination. - Labs CBC & Chem 7: 03/11/19 05:15 03/11/19 05:15 Labs: Abnormal Lab Results - Last 24 Hours (Table) 03/11/19 03/11/19 03/11/19 Range/Units 11:54 17:11 20:38 POC Glucose (mg/dL) 190 H 115 H 141 H (75-99) mg/dL Assessment and Plan Assessment: Impression: Acute hypoxic respiratory failure secondary to pulmonary edema secondary to severe valvular heart disease including aortic stenosis and mitral regurgitation. Preserved LV function noted on the echocardiogram. Severe aortic stenosis and severe mitral regurgitation. Possible non-ST segment elevation myocardial infarction with elevated troponin. 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 seizure disorder, on Keppra. Benign essential hypertension. History of prostate cancer and previous radiation therapy Acute kidney injury, resolved. Recommendation: Continue Lasix , presently on Lasix 40 mg by mouth 3 times a day. Continue Aldactone 25 mg by mouth twice a day. Continue Eliquis. Continue Keppra Continue GI and DVT prophylaxis. Discontinue cefepime. Continue incentive spirometry.. Consider discharge planning in the next 24-48 hours especially if his cardiac catheterization and JANY are not going to be done on this admission. Continue to titrate oxygen down, keep O2 saturation at above 90%. Transfer patient to a medical surgical floor and keep on telemetry/remote. Overall prognosis remains extremely poor and guarded considering his underlying cardiac issues. We will continue to follow. Time with Patient: Less than 30
[2019-03-12 11:51] LABS: Glucose,Whole Blood 193 mg/dL (75-99)
--- NOTE | 2019-03-12 11:51 | PN ---
PROGRESS NOTE Mr. Martin is a gentleman who was admitted with respiratory failure, congestive heart failure, also has severe aortic stenosis. He has been extubated. He is resting comfortably. Does not communicate much. Vital signs are stable. There is JVD of 1 cm. No carotid bruit. S1-S2 heard normally. Ejection systolic murmur is audible, second heart sound is not well heard. Lungs reveal improved air entry with diminished breath sounds over bases. Abdomen is soft. Lower extremity pulses are diminished. Central nervous system grossly no focal deficits. This patient has improved. We will continue current medical regimen. He will require coronary angiography and transesophageal echo and possible aortic valve replacement once he is more stabilized. Plan is to continue current medications, increase activity and when he is more stable, move him to telemetry unit. Prognosis remains guarded. MMODL / IJN: [id number] /
[2019-03-12 11:59] LABS: Basophils # (A) 0.1 k/uL (0-0.2); Basophils % (A) 1 %; Eosinophils # (A) 0.2 k/uL (0-0.7); Eosinophils % (A) 4 %; HCT 52.5 % (39.0-53.0); HGB 16.5 gm/dL (13.0-17.5); Hypochromasia Slight; Lymphocytes # (A) 0.9 k/uL (1.0-4.8); Lymphocytes % (A) 16 %; MCH 29.2 pg (25.0-35.0); MCHC 31.4 g/dL (31.0-37.0); MCV 93.1 fL (80.0-100.0); Mean Platelet Volume 10.7; Monocytes # (A) 0.4 k/uL (0-1.0); Monocytes % (A) 6 %; Neutrophils # (A) 3.9 k/uL (1.3-7.7); Neutrophils % (A) 70 %; Platelet Count 162 k/uL (150-450); RBC 5.64 m/uL (4.30-5.90); RDW 14.4 % (11.5-15.5); WBC 5.6 k/uL (3.8-10.6)
[2019-03-12 12:15] LABS: Calcium 9.9 mg/dL (8.4-10.2); Potassium 4.5 mmol/L (3.5-5.1)
[2019-03-12] MEDS: FUROSEMIDE 40 MG TAB PO SCH ×2 (16:31→21:21)
[2019-03-12 17:02] LABS: Glucose,Whole Blood 109 mg/dL (75-99)
--- NOTE | 2019-03-12 17:17 | P.PN ---
Subjective Progress Note Date: 03/11/19 Principal diagnosis: acute hypoxic respiratory failure secondary to pulmonary edema/acute CHF. patient a pleasant 79-year-old white male admitted through the emergency department into the ICU for acute respiratory failure and pulmonary edema 03/08/2019 patient is now on 10 L high flow nasal cannula, O2 saturations 95%, patient is feeling better, and his chest x-ray is showing improvement of his pulmonary edema, remains on Lasix drip which I transitioned to IV Lasix 40 mg IV push every 8 hours.patient is feeling better breathing easier. His CBC is relatively normal electrolytes are basically normal except for bicarb of 35 BUN is 28 creatinine of 1.11.small bilateral pleural effusions noted, bibasilar atelectasis is also noted. Overall improvement is noted on the chest x-ray 03/09/2019, patient is seen and evaluated with and daughter at bedside; family reports that have not yet been able to make decision about possible JANY remains on high flow nasal cannula, O2 saturation is in the low 90s, however clinically the patient is feeling better, patient is presently on overflow in the intensive care unit, he is supposed to get a bed on selective/monitor bed. Continues to have crackles at the bases especially at the right base. Patient is in atrial fibrillation but rate seems to be controlled. Remains on metoprolol. He is on Lasix IV 40 mg every 8 hours. Cardiology is considering JANY on this patient to follow up on his severe aortic stenosis. Labs today were reviewed including his CBC which is normal, a left was are normal, BUN is 32 creatinine is 1.13. Improved compared to creatinine on admission which was 1.48. 03/10/2019 Patient remains in the ICU as an overflow, patient being transported back to bed from bedside chair; remains weak and needs maximal assistance Patient remains on a high flow nasal cannula, remains on IV push Lasix, doing better, breathing easier. Less cough and less wheezing less shortness of breath. Chest x-ray continues to show improvement, but his interstitial edema and infiltrates are not completely resolved. Patient remains in atrial fibrillation, but rate seems to be fairly well controlled. Patient is being considered for JANY and cardiac catheterization. His CBC is relatively normal today, renal functioning is significantly improved BUN is 31 creatinine is 0.96. Detailed discussion with patient's and daughter at bedside about recommendations for JANY and cardiac catheterization; according to she has to have another meeting with the family members before they would come to a decision 03/11/2019 Patient is presently on overflow in the ICU; continues to be stable. His chest x-ray shows improvement CHF. Lungs appeared to be fairly clear at this time. Heart is irregular but rate is controlled. IV Lasix could be discontinued and start by mouth Lasix. I discussed again with patient regarding further evaluation. He hasn't decided yet. If he decides probably will do JANY first and if that suggests that aortic stenosis, severe, may consider cardiac catheterization. he is down on his high flow nasal cannula, being titrated accordingly, O2 saturations 97% on 10 L, requested further titration of his FiO2; remains on diuretics, antibiotics, bronchodilators Prognosis is guarded Objective - Vital Signs Vital signs: Vital Signs Temp 97.7 F 03/11/19 10:00 Pulse 96 03/11/19 10:00 Resp 16 03/11/19 10:00 BP 107/72 03/11/19 10:00 Pulse Ox 95 03/11/19 10:00 Intake & Output 03/10/19 03/11/19 03/11/19 18:59 06:59 18:59 Intake Total 280 100 Output Total 1010 775 Balance -730 -675 Weight 95.2 kg Intake: IV 180 100 Cefepime 2 gm In Sodium 100 100 Chloride 0.9% 100 ml @ 200 mls/hr IVPB Q12HR [facility] Rx#:[id number] Sodium Chloride 0.9% 1, 80 000 ml @ 20 mls/hr IV . Q24H [facility] Rx#:[id number] Oral 100 Output: Urine 1010 775 Other: Voiding Method Indwelling Catheter Indwelling Catheter ABP, PAP, CO, CI - Last Documented Arterial Blood Pressure 100/61 - Exam Patient is lying in the bed comfortably, no acute distress, awake alert and oriented.lethargic and weak. HEENT: Normocephalic. Neck is supple. Pupils reactive. Nostrils clear. Oral cavity is moist. Ears reveal no drainage. Neck reveals no JVD, carotid bruits, or thyromegaly. CHEST EXAMINATION: Trachea is central. Symmetrical expansion. Bibasilar diminished breath sounds nd crackles.. CARDIAC: Normal S1, S2 with no gallops. No murmurs ABDOMEN: Soft. Bowel sounds normal. No organomegaly. No abdominal bruits. Extremities: 2+ edema. No clubbing or cyanosis Neurologically awake, alert, oriented x3 with well-coordinated movements. No focal deficits noted Skin: No rash or skin lesions. - Labs CBC & Chem 7: 03/12/19 11:22 03/12/19 11:22 Labs: Abnormal Lab Results - Last 24 Hours (Table) 03/10/19 03/10/19 03/10/19 Range/Units 11:55 17:11 20:26 MCHC (31.0-37.0) g/dL Plt Count (150-450) k/uL Sodium (137-145) mmol/L Chloride (98-107) mmol/L Carbon Dioxide (22-30) mmol/L BUN (9-20) mg/dL Glucose (74-99) mg/dL POC Glucose (mg/dL) 150 H 243 H 141 H (75-99) mg/dL 03/11/19 03/11/19 03/11/19 Range/Units 05:15 05:15 06:49 MCHC 30.9 L (31.0-37.0) g/dL Plt Count 145 L (150-450) k/uL Sodium 136 L (137-145) mmol/L Chloride 93 L (98-107) mmol/L Carbon Dioxide 34 H (22-30) mmol/L BUN 36 H (9-20) mg/dL Glucose 118 H (74-99) mg/dL POC Glucose (mg/dL) 118 H (75-99) mg/dL Assessment and Plan Assessment: acute hypoxic respiratory failure secondary to pulmonary edema. Improved now. Currently on high flow oxygen we are nasal Acute on chronic CHF due diastolic dysfunction. underlying severe aortic stenosis Bilateral pleural effusion severe aortic stenosis elevated troponin levellikely due to CHF. Possible non-ST elevated [place] Lactic acidosis resolved Acute kidney injury with creatinine level I.48 on admission. Improved to 0.96 today. Chronic atrial fibrillation on anticoagulation on Eliquis at home.was on hold due to hematuria but restarted after urology clearance. Hematuria improved. Seen by urology. Hypovolemic/cardiogenic shock requiring pressors support Previous history of CVA history of seizures Prostate cancer status post radiation therapy Hyperlipidemia Hypertension plan: Patient is being continued on Lasix drip . Currently off pressor support. Critical care team is following. Monitor H&H and renal function. Continued on empiric antibiotics in the form of cefepime. Follow closely and further recommendations based on the clinical course. Cardiology is on board.prognosis is guarded. Time with Patient: Greater than 30
--- NOTE | 2019-03-12 19:12 | P.PN ---
Subjective Progress Note Date: 03/12/19 Principal diagnosis: acute hypoxic respiratory failure secondary to pulmonary edema/acute CHF. patient a pleasant 79-year-old white male admitted through the emergency department into the ICU for acute respiratory failure and pulmonary edema 03/08/2019 patient is now on 10 L high flow nasal cannula, O2 saturations 95%, patient is feeling better, and his chest x-ray is showing improvement of his pulmonary edema, remains on Lasix drip which I transitioned to IV Lasix 40 mg IV push every 8 hours.patient is feeling better breathing easier. His CBC is relatively normal electrolytes are basically normal except for bicarb of 35 BUN is 28 creatinine of 1.11.small bilateral pleural effusions noted, bibasilar atelectasis is also noted. Overall improvement is noted on the chest x-ray 03/09/2019, patient is seen and evaluated with and daughter at bedside; family reports that have not yet been able to make decision about possible JANY remains on high flow nasal cannula, O2 saturation is in the low 90s, however clinically the patient is feeling better, patient is presently on overflow in the intensive care unit, he is supposed to get a bed on selective/monitor bed. Continues to have crackles at the bases especially at the right base. Patient is in atrial fibrillation but rate seems to be controlled. Remains on metoprolol. He is on Lasix IV 40 mg every 8 hours. Cardiology is considering JANY on this patient to follow up on his severe aortic stenosis. Labs today were reviewed including his CBC which is normal, a left was are normal, BUN is 32 creatinine is 1.13. Improved compared to creatinine on admission which was 1.48. 03/10/2019 Patient remains in the ICU as an overflow, patient being transported back to bed from bedside chair; remains weak and needs maximal assistance Patient remains on a high flow nasal cannula, remains on IV push Lasix, doing better, breathing easier. Less cough and less wheezing less shortness of breath. Chest x-ray continues to show improvement, but his interstitial edema and infiltrates are not completely resolved. Patient remains in atrial fibrillation, but rate seems to be fairly well controlled. Patient is being considered for JANY and cardiac catheterization. His CBC is relatively normal today, renal functioning is significantly improved BUN is 31 creatinine is 0.96. Detailed discussion with patient's and daughter at bedside about recommendations for JANY and cardiac catheterization; according to she has to have another meeting with the family members before they would come to a decision 03/11/2019 Patient is presently on overflow in the ICU; continues to be stable. His chest x-ray shows improvement CHF. Lungs appeared to be fairly clear at this time. Heart is irregular but rate is controlled. IV Lasix could be discontinued and start by mouth Lasix. I discussed again with patient regarding further evaluation. He hasn't decided yet. If he decides probably will do JANY first and if that suggests that aortic stenosis, severe, may consider cardiac catheterization. he is down on his high flow nasal cannula, being titrated accordingly, O2 saturations 97% on 10 L, requested further titration of his FiO2; remains on diuretics, antibiotics, bronchodilators Prognosis is guarded 03/12/2019 Patient seen in ICU with and daughter at bedside; patient was is no specific complaints; according to patient is willing to have JANY done this admissionand states that they have not been able to talk to the celery tier or pipe organ mechanic regarding cardiac catheterization and JANY; according to cardiology patient will require cardiac catheterization and JANY for possible aortic valve replacement once he is more stable; cardiology recommending to continue current medications and increase activity when patient is more stable; patient remains in ICU as an overflow to selective care unit Objective - Vital Signs Vital signs: Vital Signs Temp 97.8 F 03/12/19 08:00 Pulse 93 03/12/19 16:54 Resp 15 03/12/19 08:00 BP 104/77 03/12/19 08:00 Pulse Ox 92 L 03/12/19 08:00 Intake & Output 03/11/19 03/12/19 03/12/19 18:59 06:59 18:59 Intake Total 960 100 180 Output Total 5462 413 8898 Balance -140 -850 -970 Weight 95.2 kg 95 kg Intake: IV 100 100 180 Cefepime 2 gm In Sodium 100 100 100 Chloride 0.9% 100 ml @ 200 mls/hr IVPB Q12HR [facility] Rx#:[id number] Sodium Chloride 0.9% 1, 80 000 ml @ 20 mls/hr IV . Q24H [facility] Rx#:[id number] Oral 860 Output: Urine 4631 586 9459 Other: Voiding Method Indwelling Catheter Indwelling Catheter Indwelling Catheter ABP, PAP, CO, CI - Last Documented Arterial Blood Pressure 100/61 - Exam Patient is lying in the bed comfortably, no acute distress, awake alert and oriented.lethargic and weak. HEENT: Normocephalic. Neck is supple. Pupils reactive. Nostrils clear. Oral cavity is moist. Ears reveal no drainage. Neck reveals no JVD, carotid bruits, or thyromegaly. CHEST EXAMINATION: Trachea is central. Symmetrical expansion. Bibasilar diminished breath sounds nd crackles.. CARDIAC: Normal S1, S2 with no gallops. No murmurs ABDOMEN: Soft. Bowel sounds normal. No organomegaly. No abdominal bruits. Extremities: 2+ edema. No clubbing or cyanosis Neurologically awake, alert, oriented x3 with well-coordinated movements. No focal deficits noted Skin: No rash or skin lesions. - Labs CBC & Chem 7: 03/12/19 11:22 03/12/19 11:22 Labs: Abnormal Lab Results - Last 24 Hours (Table) 03/11/19 03/11/19 03/12/19 Range/Units 17:11 20:38 11:22 Lymphocytes # 0.9 L (1.0-4.8) k/uL Sodium (137-145) mmol/L Chloride (98-107) mmol/L Carbon Dioxide (22-30) mmol/L BUN (9-20) mg/dL Glucose (74-99) mg/dL POC Glucose (mg/dL) 115 H 141 H (75-99) mg/dL 03/12/19 03/12/19 03/12/19 Range/Units 11:22 11:39 16:50 Lymphocytes # (1.0-4.8) k/uL Sodium 136 L (137-145) mmol/L Chloride 91 L (98-107) mmol/L Carbon Dioxide 37 H (22-30) mmol/L BUN 34 H (9-20) mg/dL Glucose 192 H (74-99) mg/dL POC Glucose (mg/dL) 193 H 109 H (75-99) mg/dL Assessment and Plan Assessment: acute hypoxic respiratory failure secondary to pulmonary edema. Improved now. Currently on high flow oxygen we are nasal Acute on chronic CHF due diastolic dysfunction. underlying severe aortic stenosis Bilateral pleural effusion severe aortic stenosis elevated troponin levellikely due to CHF. Possible non-ST elevated [place] Lactic acidosis resolved Acute kidney injury with creatinine level I.48 on admission. Improved to 0.96 today. Chronic atrial fibrillation on anticoagulation on Eliquis at home.was on hold due to hematuria but restarted after urology clearance. Hematuria improved. Seen by urology. Hypovolemic/cardiogenic shock requiring pressors support Previous history of CVA history of seizures Prostate cancer status post radiation therapy Hyperlipidemia Hypertension plan: Patient is being continued on Lasix drip . Currently off pressor support. Critical care team is following. Monitor H&H and renal function. Continued on empiric antibiotics in the form of cefepime. Follow closely and further recommendations based on the clinical course. Cardiology is on board.prognosis is guarded.
[2019-03-12 20:54] LABS: Glucose,Whole Blood 134 mg/dL (75-99)
[2019-03-12] MEDS: ATORVASTATIN 20 MG TAB PO SCH (21:21)
[2019-03-12] MEDS: SODIUM CHLORIDE 0.9% 1,000 ML IV SCH (21:22)
[2019-03-13] MEDS: IPRATROPIUM-ALBUTEROL 3 ML NEB INHALATION SCH ×6 (03:14→23:16)
[2019-03-13 06:56] LABS: Glucose,Whole Blood 129 mg/dL (75-99)
[2019-03-13] MEDS: INSULIN ASPART (NovoLOG) 100 UNIT/ML VIAL SQ SCH ×4 (07:51→20:44)
[2019-03-13] MEDS: METOPROLOL TARTRATE 25 MG TAB PO SCH ×3 (08:57→22:24)
[2019-03-13] MEDS: SPIRONOLACTONE 25 MG TAB PO SCH ×2 (08:57→20:41)
[2019-03-13] MEDS: levETIRAcetam 500 MG TAB PO SCH ×2 (08:57→20:41)
[2019-03-13] MEDS: APIXABAN 5 MG TAB PO SCH ×2 (08:58→20:41)
[2019-03-13] MEDS: PANTOPRAZOLE 40 MG TABLET PO SCH (08:58)
[2019-03-13] MEDS: FUROSEMIDE 40 MG TAB PO SCH ×3 (08:58→22:24)
[2019-03-13 11:51] LABS: Glucose,Whole Blood 119 mg/dL (75-99)
--- NOTE | 2019-03-13 15:06 | PN ---
PROGRESS NOTE Mr. aMrtin is doing well, extubated, hemodynamically stable doing well. He has moderate to severe aortic stenosis and respiratory issues, but he is remarkably better. He is on anticoagulation. His atrial fibrillation rate is controlled. Vital are stable. JVD at 1 cm. No carotid bruit. Ejection systolic murmur is audible. Lungs are clear. Abdomen and lower extremity exam unchanged. Plan is to continue current medications, but discontinue aspirin. Increase activity and once he is more stable upon discharge, he will have an outpatient cardiac cath and transesophageal echo. Discussed my thoughts in detail with the patient. There was no family available. MMODL / IJN: [id number] /
[2019-03-13 16:44] LABS: Glucose,Whole Blood 130 mg/dL (75-99)
[2019-03-13 20:34] LABS: Glucose,Whole Blood 198 mg/dL (75-99)
[2019-03-13] MEDS: ATORVASTATIN 20 MG TAB PO SCH (20:41)
[2019-03-13] MEDS: SODIUM CHLORIDE 0.9% 1,000 ML IV SCH (20:47)
[2019-03-14] MEDS: IPRATROPIUM-ALBUTEROL 3 ML NEB INHALATION SCH ×5 (03:39→20:48)
[2019-03-14] MEDS: INSULIN ASPART (NovoLOG) 100 UNIT/ML VIAL SQ SCH ×4 (06:59→21:20)
[2019-03-14] MEDS: PANTOPRAZOLE 40 MG TABLET PO SCH (06:59)
[2019-03-14 07:09] LABS: Glucose,Whole Blood 103 mg/dL (75-99)
--- NOTE | 2019-03-14 08:59 | P.PN ---
Subjective Progress Note Date: 03/13/19 Principal diagnosis: acute hypoxic respiratory failure secondary to pulmonary edema/acute CHF. patient a pleasant 79-year-old white male admitted through the emergency department into the ICU for acute respiratory failure and pulmonary edema 03/08/2019 patient is now on 10 L high flow nasal cannula, O2 saturations 95%, patient is feeling better, and his chest x-ray is showing improvement of his pulmonary edema, remains on Lasix drip which I transitioned to IV Lasix 40 mg IV push every 8 hours.patient is feeling better breathing easier. His CBC is relatively normal electrolytes are basically normal except for bicarb of 35 BUN is 28 creatinine of 1.11.small bilateral pleural effusions noted, bibasilar atelectasis is also noted. Overall improvement is noted on the chest x-ray 03/09/2019, patient is seen and evaluated with and daughter at bedside; family reports that have not yet been able to make decision about possible JANY remains on high flow nasal cannula, O2 saturation is in the low 90s, however clinically the patient is feeling better, patient is presently on overflow in the intensive care unit, he is supposed to get a bed on selective/monitor bed. Continues to have crackles at the bases especially at the right base. Patient is in atrial fibrillation but rate seems to be controlled. Remains on metoprolol. He is on Lasix IV 40 mg every 8 hours. Cardiology is considering JANY on this patient to follow up on his severe aortic stenosis. Labs today were reviewed including his CBC which is normal, a left was are normal, BUN is 32 creatinine is 1.13. Improved compared to creatinine on admission which was 1.48. 03/10/2019 Patient remains in the ICU as an overflow, patient being transported back to bed from bedside chair; remains weak and needs maximal assistance Patient remains on a high flow nasal cannula, remains on IV push Lasix, doing better, breathing easier. Less cough and less wheezing less shortness of breath. Chest x-ray continues to show improvement, but his interstitial edema and infiltrates are not completely resolved. Patient remains in atrial fibrillation, but rate seems to be fairly well controlled. Patient is being considered for JANY and cardiac catheterization. His CBC is relatively normal today, renal functioning is significantly improved BUN is 31 creatinine is 0.96. Detailed discussion with patient's and daughter at bedside about recommendations for JANY and cardiac catheterization; according to she has to have another meeting with the family members before they would come to a decision 03/11/2019 Patient is presently on overflow in the ICU; continues to be stable. His chest x-ray shows improvement CHF. Lungs appeared to be fairly clear at this time. Heart is irregular but rate is controlled. IV Lasix could be discontinued and start by mouth Lasix. I discussed again with patient regarding further evaluation. He hasn't decided yet. If he decides probably will do JANY first and if that suggests that aortic stenosis, severe, may consider cardiac catheterization. he is down on his high flow nasal cannula, being titrated accordingly, O2 saturations 97% on 10 L, requested further titration of his FiO2; remains on diuretics, antibiotics, bronchodilators Prognosis is guarded 03/12/2019 Patient seen in ICU with and daughter at bedside; patient was is no specific complaints; according to patient is willing to have JANY done this admissionand states that they have not been able to talk to the iron worker foreman or woodworker regarding cardiac catheterization and JANY; according to cardiology patient will require cardiac catheterization and JANY for possible aortic valve replacement once he is more stable; cardiology recommending to continue current medications and increase activity when patient is more stable; patient remains in ICU as an overflow to selective care unit 03/13/2019 Patient remains in ICU as overflow to selective care; pulmonary is trying to wean oxygen down and then transferred patient to medical floor if possible Patient remains afebrile; blood pressure is slightly softer today at 95/67; patient remains on 6 L with SpO2 of 94% Patient has been recommended cardiac catheterization and JANY for further evaluation of severe aortic stenosis; per and daughter patient is willing to undergo further testing; cardiology and intensive care services are following Objective - Vital Signs Vital signs: Vital Signs Temp 98.2 F 03/12/19 16:00 Pulse 86 03/13/19 11:35 Resp 17 03/13/19 08:00 BP 95/67 03/13/19 08:00 Pulse Ox 94 L 03/13/19 08:00 Intake & Output 03/12/19 03/13/19 03/13/19 18:59 06:59 18:59 Intake Total 180 200 200 Output Total 1150 760 500 Balance -970 -560 -300 Weight 96 kg Intake: IV 180 200 Cefepime 2 gm In Sodium 100 Chloride 0.9% 100 ml @ 200 mls/hr IVPB Q12HR [facility] Rx#:[id number] Sodium Chloride 0.9% 1, 80 200 000 ml @ 20 mls/hr IV . Q24H [facility] Rx#:[id number] Oral 200 Output: Urine 1150 760 500 Other: Voiding Method Indwelling Catheter Indwelling Catheter Indwelling Catheter ABP, PAP, CO, CI - Last Documented Arterial Blood Pressure 100/61 - Exam Patient is lying in the bed comfortably, no acute distress, awake alert and oriented.lethargic and weak. HEENT: Normocephalic. Neck is supple. Pupils reactive. Nostrils clear. Oral cavity is moist. Ears reveal no drainage. Neck reveals no JVD, carotid bruits, or thyromegaly. CHEST EXAMINATION: Trachea is central. Symmetrical expansion. Bibasilar diminished breath sounds nd crackles.. CARDIAC: Normal S1, S2 with no gallops. No murmurs ABDOMEN: Soft. Bowel sounds normal. No organomegaly. No abdominal bruits. Extremities: 2+ edema. No clubbing or cyanosis Neurologically awake, alert, oriented x3 with well-coordinated movements. No focal deficits noted Skin: No rash or skin lesions. - Labs CBC & Chem 7: 03/12/19 11:22 03/12/19 11:22 Labs: Abnormal Lab Results - Last 24 Hours (Table) 03/12/19 03/12/19 03/13/19 Range/Units 16:50 20:42 06:45 POC Glucose (mg/dL) 109 H 134 H 129 H (75-99) mg/dL 03/13/19 Range/Units 11:39 POC Glucose (mg/dL) 119 H (75-99) mg/dL Assessment and Plan Assessment: acute hypoxic respiratory failure secondary to pulmonary edema. Improved now. Currently on high flow oxygen we are nasal Acute on chronic CHF due diastolic dysfunction. underlying severe aortic stenosis Bilateral pleural effusion severe aortic stenosis elevated troponin levellikely due to CHF. Possible non-ST elevated [place] Lactic acidosis resolved Acute kidney injury with creatinine level I.48 on admission. Improved to 0.96 today. Chronic atrial fibrillation on anticoagulation on Eliquis at home.was on hold due to hematuria but restarted after urology clearance. Hematuria improved. Seen by urology. Hypovolemic/cardiogenic shock requiring pressors support Previous history of CVA history of seizures Prostate cancer status post radiation therapy Hyperlipidemia Hypertension plan: Patient is being continued on Lasix drip . Currently off pressor support. Critical care team is following. Monitor H&H and renal function. Continued on empiric antibiotics in the form of cefepime. Follow closely and further recommendations based on the clinical course. Cardiology is on board.prognosis is guarded.
[2019-03-14] MEDS: APIXABAN 5 MG TAB PO SCH ×2 (09:03→21:19)
[2019-03-14] MEDS: METOPROLOL TARTRATE 25 MG TAB PO SCH ×3 (09:03→21:19)
[2019-03-14] MEDS: FUROSEMIDE 40 MG TAB PO SCH ×3 (09:04→21:19)
[2019-03-14] MEDS: SPIRONOLACTONE 25 MG TAB PO SCH ×2 (09:04→21:19)
[2019-03-14] MEDS: levETIRAcetam 500 MG TAB PO SCH ×2 (09:04→21:18)
--- NOTE | 2019-03-14 10:21 | P.PN ---
Subjective Progress Note Date: 03/14/19 Principal diagnosis: Acute hypoxic respiratory failure secondary to congestive heart failure secondary to severe aortic stenosis, severe mitral regurgitation and preserved LV function on 03/06/2019 the patient is extubated and currently is on oxygen at 8 L per minute nasal cannula with a pulse ox of 93%. He is on a Lasix drip at 5 mg an hour. He continues to make excellent urine output and he is net fluid balance over the past 24 hours is been - 1.3 L. Nevertheless, despite ongoing diuresis, the chest x-ray still showing Ludy megaly and worsening in CHF. As mentioned elizabeth gonsalez, the patient has severe aortic stenosis. He is still in atrial fibrillation. Norepinephrine infusion is being utilized for blood pressure control and currently is running at 0.06 units per KG per minute. His serum bicarb is up and on his blood gases he has developed some metabolic alkalosis. Serum bicarbonate was up to 34. I'm going to give him 2 doses of Diamox for now. Otherwise, he is weak. He is awake. Is following commands. He did have dinner yesterday and he did have breakfast this morning. No fever. No chills. Will be given an incentive spirometer.As mentioned earlier, the patient has severe aortic stenosis. He has a valve area of 0.5 cm. His ejection fraction is within normal limits with an EF of around 50-55%. He has severe pulmonary hypertension with a PA Jenny of 67. He remains on IV cefepime. This is empiric antibiotic coverage. No fever. No chills Reevaluated today on 03/07/2019, patient remains in the intensive care unit, however his overall status remains marginal, he is on 15 L high flow nasal cannula, remains on Lasix at 5 mg per hour. Chest x-ray continues to show evidence of pulmonary edema and bilateral airspace disease. According to the patient is feeling much better today compared to the last few days, patient was extubated 2 days ago, and he seems to be tolerating the extubation well, but of course his overall pulmonary status is marginal. His urine output is excellent, hence I will keep him on Lasix at 5 mg per hour drip. Remains on antibiotics coverage empirically. CBC today is normal. Electrode was are normal. BUN is 28 creatinine is 1.10. Creatinine on admission was 1.48. Hence it seems to be improving in spite of aggressive diuresis. Reevaluated today on 03/08/2019, patient is now on 10 L high flow nasal cannula, O2 saturations 95%, patient is feeling better, and his chest x-ray is showing improvement of his pulmonary edema, remains on Lasix drip which I transitioned to IV Lasix 40 mg IV push every 8 hours.patient is feeling better breathing easier. His CBC is relatively normal electrolytes are basically normal except for bicarb of 35 BUN is 28 creatinine of 1.11.small bilateral pleural effusions noted, bibasilar atelectasis is also noted. Overall improvement is noted on the chest x-ray Reevaluated today on 03/09/2019, patient remains on high flow nasal cannula, O2 saturation is in the low 90s, however clinically the patient is feeling better, patient is presently on overflow in the intensive care unit, he is supposed to get a bed on selective/monitor bed. Continues to have crackles at the bases especially at the right base. Patient is in atrial fibrillation but rate seems to be controlled. Remains on metoprolol. He is on Lasix IV 40 mg every 8 hours. Cardiology is considering JANY on this patient to follow up on his severe aortic stenosis. Labs today were reviewed including his CBC which is normal, a left was are normal, BUN is 32 creatinine is 1.13. Improved compared to creatinine on admission which was 1.48. Reevaluated today on 03/10/2019, remains in the ICU as an overflow, remains on a high flow nasal cannula, remains on IV push Lasix, doing better, breathing easier. Less cough and less wheezing less shortness of breath. Chest x-ray continues to show improvement, but his interstitial edema and infiltrates are not completely resolved. Patient remains in atrial fibrillation, but rate seems to be fairly well controlled. Patient is being considered for JANY. And cardiac catheterization. His CBC is relatively normal today, renal functioning is significantly improved BUN is 31 creatinine is 0.96. Reevaluated today in the ICU on 03/11/2019, patient continues to do well clinically, chest x-ray continues to improve, and is much better today compared to the last few days. Patient remains on diuretics, antibiotics, bronchodilators, he is presently on overflow in the ICU, and I plan to transfer him to a medical surgical floor with remote monitor/telemetry. Clinically the patient is feeling great, he is down on his high flow nasal cannula, being t itrated accordingly, O2 saturations 97% on 10 L, requested further titration of his FiO2. Remains in atrial fibrillation with well-controlled rate. Remains on IV Lasix, patient is not yet decided regarding cardiac catheterization and JANY. That is being addressed by cardiology. Reevaluated today on 03/12/2019, patient is feeling much better, he is down to 6 L nasal cannula, in no distress, O2 saturation is 94%. Asymptomatic, remains on diuretics, today I have learned that the patient will not have cardiac catheterization and JANY during this admission, hence patient could be considered for discharge planning in the next 24 hours. And follow-up with cardiology on outpatient basis. In the meantime we'll try to titrate his oxygen down hopefully could go down to his low as 4 L/m nasal cannula. And he may require home O2. CBC is relatively normal today. Electrolytes are relatively normal. BUN is 36 creatinine is 1.0 On 03/14/2019 patient seen in follow-up in intensive care unit, he is awake and alert, currently on 6 L of oxygen, pulse ox is 92%, denies any worsening dyspnea, breathing is stable, stable vitals, A. fib with a controlled rate. No running IVs, IVs have been hep-locked, no new chest x-rays, remains on oral Lasix at 40 mg 3 times daily, he is maintaining negative fluid balance, -675 ML, weight is down by 1.1 kg in the last 24 hours. No lower extremity edema. Doing well, no acute issues overnight. Oral anticoagulation in the form of Eliquis, 5 mg twice daily, remains on nebulized bronchodilators. No nausea vomiting no diarrhea, no complaints of chest pain, no worsening shortness of breath, and incentive spirometer. No new labs today, cardiology is following Objective - Vital Signs Vital signs: Vital Signs Temp 97.8 F 03/14/19 00:00 Pulse 89 03/14/19 09:29 Resp 20 03/14/19 00:00 BP 105/80 03/14/19 00:00 Pulse Ox 94 L 03/14/19 00:00 Intake & Output 03/13/19 03/14/19 03/14/19 18:59 06:59 18:59 Intake Total 200 400 416 Output Total 500 775 Balance -300 -375 416 Weight 94.9 kg Intake: Oral 200 400 416 Output: Urine 500 775 Other: Voiding Method Indwelling Catheter Indwelling Catheter ABP, PAP, CO, CI - Last Documented Arterial Blood Pressure 100/61 - Exam GENERAL EXAM: Alert, very pleasant, 79-year-old white male, on 6 L of oxygen with a pulse ox of 92% comfortable in no apparent distress. HEAD: Normocephalic/atraumatic. EYES: Normal reaction of pupils, equal size. Conjunctiva pink, sclera white. NOSE: Clear with pink turbinates. THROAT: No erythema or exudates. NECK: No masses, no JVD, no thyroid enlargement, no adenopathy. CHEST: No chest wall deformity. Symmetrical expansion. LUNGS: Equal air entry with no crackles, wheeze, rhonchi or dullness. CVS: Regular rate and rhythm, normal S1 and S2, no gallops, no murmurs, no rubs ABDOMEN: Soft, nontender. No hepatosplenomegaly, normal bowel sounds, no guarding or rigidity. EXTREMITIES: No clubbing, no edema, no cyanosis, 2+ pulses and upper and lower extremities. MUSCULOSKELETAL: Muscle strength and tone normal. SPINE: No scoliosis or deformity SKIN: No rashes CENTRAL NERVOUS SYSTEM: Alert and oriented -3. No focal deficits, tone is normal in all 4 extremities. PSYCHIATRIC: Alert and oriented -3. Appropriate affect. Intact judgment and insight. - Labs CBC & Chem 7: 03/12/19 11:22 03/12/19 11:22 Labs: Abnormal Lab Results - Last 24 Hours (Table) 03/13/19 03/13/19 03/13/19 Range/Units 11:39 16:32 20:23 POC Glucose (mg/dL) 119 H 130 H 198 H (75-99) mg/dL 03/14/19 Range/Units 06:57 POC Glucose (mg/dL) 103 H (75-99) mg/dL Assessment and Plan Plan: Assessment: #1. Acute hypoxic respiratory failure secondary to pulmonary edema, related to severe valvular heart disease including aortic stenosis and mitral regurgitation, echocardiogram showed preserved left ventricular systolic function #2. Severe aortic stenosis and severe mitral regurgitation #3. Possible non-ST segment elevated myocardial infarction with elevated troponin #4. Chronic atrial fibrillation, on oral anticoagulation, controlled rate #5. Chronic left-sided hemiparesis secondary to previous history of CVA #6. Seizure disorder on Keppra #7. Benign essential hypertension #8. History of prostate cancer and previous radiation therapy #9. Acute kidney injury, resolved Plan: Continue oral Lasix, patient is maintaining negative fluid balance, wean FiO2, encourage deep breathing and coughing, consult physical therapy to help mobilize the patient, increase activity as tolerated, no new chest x-ray no new labs, continue oral anticoagulation, continue GI and DVT prophylaxis, antibiotics have been discontinued, no fever or chills, no worsening dyspnea. Follow up chest x- ray in the morning. Patient is awaiting a bed on medical surgical floor with telemetry. I performed a history & physical examination of the patient and discussed their management with my nurse practitioner, Cata Ku. I reviewed the nurse practitioner's note and agree with the documented findings and plan of care. Lung sounds are positive for bibasilar crackles. The findings and the impression was discussed with the patient. I attest to the documentation by the nurse practitioner. Time with Patient: Less than 30
[2019-03-14 12:11] LABS: Glucose,Whole Blood 148 mg/dL (75-99)
[2019-03-14 17:15] LABS: Glucose,Whole Blood 135 mg/dL (75-99)
--- NOTE | 2019-03-14 17:15 | P.PN ---
Subjective Progress Note Date: 03/14/19 This is a 79-year-old gentleman with history of severe aortic stenosis who was admitted to the hospital with significant pulmonary edema. Patient is still intubated. Patient is diuresing well. IV Lasix was cut back to 5 mg yesterday. He is also on IV Cardizem drip. He responds to verbal stimuli. Chest x-ray showed some infiltrates. We'll continue with IV Lasix drip and also Cardizem until patient is extubated. Subsequently open switch medication to by mouth diuretics and the Cardizem. Patient eventually may need cardiac catheterization and also possible aortic valve replacement. 03/06/2019: This patient with severe aortic stenosis was admitted with CHF and pulmonary edema. Patient is extubated. He is a sitting up and seemed to be slightly lethargic but easily arousable. Doesn't appear to be in acute distress. Patient is on IV Lasix and diuresing well. His CO2 is going up and patient was initiated on Diamox by the claim technician. Patient is going to have an ultrasound of the chest to see if there is a fluid with that could be tapped. Patient is pilot station fibrillation. Chest x-ray showed cardiomegaly and bilateral pleural effusion and findings of CHF. We'll continue current medical therapy including IV Lasix. Patient may need further evaluation and possible aortic valve replacement. Prognosis is guarded. 03/07/2019: Patient remains relatively stable. He is a sitting up in the chair, alert and oriented and doesn't appear to be in acute distress. He is in atrial fibrillation with controlled and corresponds. Patient is on Eliquis and also IV Cardizem and metoprolol. He is also on IV Lasix drip and Aldactone. I'm going to discontinue IV Cardizem and increase the dose of the metoprolol to 25 mg by mouth 3 times a day. His blood pressure is about 110/70. I discussed with him about aortic stenosis and need for possible valve replacement. At this point, patient wants to think about it. Probably can be taken off the IV Lasix and started on bolus of IV Lasix or by mouth Lasix. Increase activity as tolerated. When patient is gradient discussed with Dr. Sales regarding doing a cardiac catheterization. 03/08/2019: The patient's was improvement. He seemed to be less short of breath and seemed to be a new more energetic. A chest x-ray shows improvement. We can switch IV Lasix drip to IV boluses. His heart rate is controlled with metoprolol. He is off Cardizem drip. His lungs show diminished breath sounds at bases. I discussed with patient about further evaluation of the aortic valve disease. Patient wants to think about it and discuss with his . We will continue current medical therapy. Possible transfer to telemetry unit. Prognosis is guarded. Patient is still in high flow oxygen supplement. 03/09/2019: Patient is a feeling better and seemed to be in no acute distress. Patient is sitting up in the chair. His lungs show few crackles at bases. Could be related to check to assess. Patient is advised to increase incentive spirometry. Patient is in atrial fibrillation but rate is controlled. He just on metoprolol at this time. He is on IV bolus of Lasix which can be changed to by mouth Lasix. Patient is being transferred to telemetry unit. Patient hasn't decided about further workup regarding his aortic stenosis. When patient is ready oh may proceed with JANY first. Prognosis still guarded 03/10/2019: Patient continues to be relatively stable. Doesn't appear in acute distress. Chest x-ray shows some findings of CHF. Lungs show a few rales at the bases. Patient is still on IV Lasix. He hasn't decided about further evaluation regarding aortic stenosis. Will transfer to telemetry unit and increase activity. If patient agrees, we'll may proceed with a JANY examination and cardiac catheterization. 03/11/2019. Patient continues to be stable. His chest x-ray shows improvement CHF. Lungs appeared to be fairly clear at this time. Heart is irregular but rate is controlled. IV Lasix could be discontinued and start by mouth Lasix. I discussed again with patient regarding further evaluation. He hasn't decided yet. If he decides probably will do JANY first and if that suggests that aortic stenosis, severe, may consider cardiac catheterization. Prognosis is guarded. 03/14/2019: This patient seemed to be clinically stable. His on oral diuretics. On 6 L of oxygen. Still very frail and unable to ambulate. Patient may need outpatient rehabilitation. Patient does have history of severe aortic stenosis. When clinically stable, patient may need JANY examination and also cardiac catheterization. Meanwhile we'll continue the current medical therapy. Patient could be transferred to telemetry unit Objective - Vital Signs Vital signs: Vital Signs Temp 97.8 F 03/14/19 08:00 Pulse 92 03/14/19 16:36 Resp 22 03/14/19 08:00 BP 110/97 03/14/19 08:00 Pulse Ox 92 L 03/14/19 08:00 Intake & Output 03/13/19 03/14/19 03/14/19 18:59 06:59 18:59 Intake Total 200 400 416 Output Total 500 775 Balance -300 -375 416 Weight 94.9 kg Intake: Oral 200 400 416 Output: Urine 500 775 Other: Voiding Method Indwelling Catheter Indwelling Catheter ABP, PAP, CO, CI - Last Documented Arterial Blood Pressure 100/61 - Exam GENERAL EXAM: Patient is intubated but follows commands HEENT: Normocephalic. Normal reaction of pupils, equal size, normal range of extraocular motion. No erythema or exudates in the throat. NECK: No masses, no nuchal rigidity. CHEST: No chest wall deformity. LUNGS: Bibasilar rales HEART: S1 and S2 normal ABDOMEN: Soft SKIN: No rashes CENTRAL NERVOUS SYSTEM: No focal deficits. EXTREMITIES: No cyanosis, clubbing or edema. - Labs CBC & Chem 7: 03/12/19 11:22 03/12/19 11:22 Labs: Abnormal Lab Results - Last 24 Hours (Table) 03/13/19 03/14/19 03/14/19 Range/Units 20:23 06:57 12:00 POC Glucose (mg/dL) 198 H 103 H 148 H (75-99) mg/dL Assessment and Plan (1) Pulmonary edema Current Visit: Yes Status: Acute Code(s): J81.1 - CHRONIC PULMONARY EDEMA SNOMED Code(s): 46553516 (2) Severe aortic stenosis Current Visit: Yes Status: Acute Code(s): I35.0 - NONRHEUMATIC AORTIC (VALVE) STENOSIS SNOMED Code(s): 93377256 (3) Chronic a-fib Current Visit: No Status: Acute Code(s): I48.2 - CHRONIC ATRIAL FIBRILLATION * DO NOT USE * SNOMED Code(s): 145459437 (4) HTN (hypertension) Current Visit: No Status: Acute Code(s): I10 - ESSENTIAL (PRIMARY) HYPERTENSION SNOMED Code(s): 85682363 Plan: Continue current management. Transfer to telemetry unit. Patient may require outpatient physical therapy
[2019-03-14 20:18] LABS: Glucose,Whole Blood 140 mg/dL (75-99)
[2019-03-14] MEDS: ATORVASTATIN 20 MG TAB PO SCH (21:19)
[2019-03-15 07:22] LABS: Glucose,Whole Blood 108 mg/dL (75-99)
[2019-03-15] MEDS: INSULIN ASPART (NovoLOG) 100 UNIT/ML VIAL SQ SCH ×4 (07:27→21:31)
[2019-03-15] MEDS: IPRATROPIUM-ALBUTEROL 3 ML NEB INHALATION SCH ×4 (09:00→20:25)
[2019-03-15] MEDS: APIXABAN 5 MG TAB PO SCH ×2 (09:53→21:38)
[2019-03-15] MEDS: levETIRAcetam 500 MG TAB PO SCH ×2 (09:53→21:38)
[2019-03-15] MEDS: SPIRONOLACTONE 25 MG TAB PO SCH ×2 (09:53→21:37)
[2019-03-15] MEDS: PANTOPRAZOLE 40 MG TABLET PO SCH (09:53)
[2019-03-15] MEDS: FUROSEMIDE 40 MG TAB PO SCH ×3 (09:54→21:38)
[2019-03-15] MEDS: METOPROLOL TARTRATE 25 MG TAB PO SCH ×3 (09:54→21:37)
--- NOTE | 2019-03-15 11:44 | P.PN ---
Subjective Progress Note Date: 03/15/19 Is a pleasant 79-year-old gentleman with severe aortic stenosis admitted to the hospital with significant pulmonary edema. Initially was intubated. With diuresis and IV Lasix. Has history of chronic atrial fibrillation, heart rates controlled at this time, anticoagulated on Eliquis. Currently on Lasix 40 mg by mouth 3 times a day and metoprolol tartrate 25 mg by mouth 3 times a day as well as Aldactone 25 mg by mouth twice a day. Vital signs are stable. Upon examination, patient is sitting up in a chair. He feels his breathing is improving. His edema is also improving. He does follow with Dr. Sales in the office. Objective - Vital Signs Vital signs: Vital Signs Temp 98.0 F 03/15/19 07:40 Pulse 89 03/15/19 09:51 Resp 18 03/15/19 07:40 BP 106/71 03/15/19 09:51 Pulse Ox 94 L 03/15/19 07:40 Intake & Output 03/14/19 03/15/19 03/15/19 18:59 06:59 18:59 Intake Total 1006 450 Output Total 750 1875 Balance 256 -1875 450 Intake: Oral 1006 450 Output: Urine 750 1875 Uretheral (Wells) 1300 Other: Voiding Method Indwelling Catheter Indwelling Catheter ABP, PAP, CO, CI - Last Documented Arterial Blood Pressure 100/61 - Exam PHYSICAL EXAMINATION: HEENT: Head is atraumatic, normocephalic. Pupils equal, round. Neck is supple. There is no elevated jugular venous pressure. HEART EXAMINATION: Heart sounds irregularly irregular, S1 and S2 with systolic murmur. CHEST EXAMINATION: Lungs reveal crackles bilateral bases. No chest wall tenderness is noted on palpation or with deep breathing. ABDOMEN: Soft, obese, nontender. Bowel sounds are heard. No organomegaly noted. EXTREMITIES: 2+ peripheral pulses with evidence of trace peripheral edema and no calf tenderness noted. NEUROLOGIC patient is awake, alert and oriented x3. . - Labs CBC & Chem 7: 03/12/19 11:22 03/12/19 11:22 Labs: Abnormal Lab Results - Last 24 Hours (Table) 03/14/19 03/14/19 03/14/19 Range/Units 12:00 17:03 20:16 POC Glucose (mg/dL) 148 H 135 H 140 H (75-99) mg/dL 03/15/19 Range/Units 07:09 POC Glucose (mg/dL) 108 H (75-99) mg/dL Assessment and Plan Assessment: #1 severe aortic stenosis #2 pulmonary edema #3 chronic persistent atrial fibrillation #4 hypertension Plan: From it administrative assistant perspective, medications reviewed and we will continue the same. Discussed with the patient need for further evaluation of aortic valve down the road lately with cardiac catheterization and JANY. We will continue to follow the patient throughout this admission and provide further recommendations accordingly. He'll be scheduled upon discharge to follow-up in the office with Dr. Sales. [employer] [facility] note has been reviewed, I agree with a documented findings and plan of care. Patient was seen and examined.
[2019-03-15 11:57] LABS: Glucose,Whole Blood 117 mg/dL (75-99)
--- NOTE | 2019-03-15 14:24 | P.PN ---
Subjective Progress Note Date: 03/15/19 Principal diagnosis: Acute hypoxemic respiratory failure secondary to congestive heart failure, severe stenosis, severe mitral regurgitation The patient is seen today 03/15/2019 in follow-up on the selective care unit. He is currently sitting up in a chair at the bedside. He is awake and alert in no acute distress. Maintaining O2 saturations in the 90s on 6 L high flow nasal cannula. Sputum cultures reveal no growth. He remains on bronchodilators, oral diuretics, anticoagulated with Eliquis. Objective - Vital Signs Vital signs: Vital Signs Temp 98.0 F 03/15/19 07:40 Pulse 88 03/15/19 12:45 Resp 18 03/15/19 07:40 BP 106/71 03/15/19 09:51 Pulse Ox 94 L 03/15/19 07:40 Intake & Output 03/14/19 03/15/19 03/15/19 18:59 06:59 18:59 Intake Total 1006 450 Output Total 750 1875 575 Balance 256 -1875 -125 Intake: Oral 1006 450 Output: Urine 750 1875 575 Uretheral (Wells) 1300 Other: Voiding Method Indwelling Catheter Indwelling Catheter ABP, PAP, CO, CI - Last Documented Arterial Blood Pressure 100/61 - Exam GENERAL EXAM: Alert, very pleasant, 79-year-old male patient, on 6 L of oxygen with a pulse ox of 94% comfortable in no apparent distress. HEAD: Normocephalic/atraumatic. EYES: Normal reaction of pupils, equal size. Conjunctiva pink, sclera white. NOSE: Clear with pink turbinates. THROAT: No erythema or exudates. NECK: No masses, no JVD, no thyroid enlargement, no adenopathy. CHEST: No chest wall deformity. Symmetrical expansion. LUNGS: Equal air entry with crackles in the posterior bases. CVS: Regular rate and rhythm, normal S1 and S2, no gallops, no murmurs, no rubs ABDOMEN: Soft, nontender. No hepatosplenomegaly, normal bowel sounds, no guarding or rigidity. EXTREMITIES: No clubbing, no edema, no cyanosis, 2+ pulses and upper and lower extremities. MUSCULOSKELETAL: Muscle strength and tone normal. SPINE: No scoliosis or deformity SKIN: No rashes CENTRAL NERVOUS SYSTEM: No focal deficits, tone is normal in all 4 extremities. PSYCHIATRIC: Alert and oriented -3. Appropriate affect. Intact judgment and insight. - Labs CBC & Chem 7: 03/12/19 11:22 03/12/19 11:22 Labs: Abnormal Lab Results - Last 24 Hours (Table) 03/14/19 03/14/19 03/15/19 Range/Units 17:03 20:16 07:09 POC Glucose (mg/dL) 135 H 140 H 108 H (75-99) mg/dL 03/15/19 Range/Units 11:44 POC Glucose (mg/dL) 117 H (75-99) mg/dL Assessment and Plan Assessment: #1. Acute hypoxic respiratory failure secondary to pulmonary edema, related to severe valvular heart disease including aortic stenosis and mitral regurgitation, echocardiogram showed preserved left ventricular systolic function #2. Severe aortic stenosis and severe mitral regurgitation #3. Possible non-ST segment elevated myocardial infarction with elevated troponin #4. Chronic atrial fibrillation, on oral anticoagulation, controlled rate #5. Chronic left-sided hemiparesis secondary to previous history of CVA #6. Seizure disorder on Keppra #7. Benign essential hypertension #8. History of prostate cancer and previous radiation therapy #9. Acute kidney injury, resolved Plan: The patient was seen and evaluated by Dr. Duque. He is currently stable from the pulmonary and critical care standpoint. Continue to titrate down the FiO2 as tolerated. The plan is for transfer to subacute rehabilitation for further improvement of his medical debility. I, the cosigning physician, performed a history & physical examination of the patient. Lungs sounds with crackles in the posterior bases. Maintaining good O2 saturations in the 90s on 6 L high flow nasal cannula I discussed the assessment and plan of care with my nurse practitioner, Chelle Becerra. I attest to the above note as dictated by her.
[2019-03-15 16:45] LABS: Glucose,Whole Blood 129 mg/dL (75-99)
[2019-03-15 21:28] LABS: Glucose,Whole Blood 133 mg/dL (75-99)
[2019-03-15] MEDS: ATORVASTATIN 20 MG TAB PO SCH (21:37)
--- NOTE | 2019-03-15 23:25 | P.PN ---
Subjective Progress Note Date: 03/14/19 Principal diagnosis: acute hypoxic respiratory failure secondary to pulmonary edema/acute CHF. patient a pleasant 79-year-old white male admitted through the emergency department into the ICU for acute respiratory failure and pulmonary edema he is currently on a ventilator with IV sedation. 03/03/2019 remains ventilator dependent with FiO2 50%/+12 of PEEP. chest x-ray reporting small pleural effusions with bibasilar atelectasis/consolidation. sputum culture pending.Continues on Diprovan, Cardizem, Lasix and Levophed drips.telemetry atrial fib.Cardizem dose increased as per cardiology with a dose of digoxin.creatinine 1.26.Echo reporting the low-normal LV function, EF 50-55%, moderate to severe aortic stenosis, moderate to severe mitral and tricuspid regurgitation, moderate to severe pulmonary hypertension.afebrile. 03/04/2019 chest x-ray continues to report pulmonary edema. ABGs noted. remains vent dependent, FiO2 40% with PEEP down to +12. Telemetry atrial fibrillation .Continues on to prevent, Cardizem, Lasix and Levophed drips. Developed hematuria throughout the night, urology consulted, aspirin and Eliquis on hold. Tube feeds initiated during the night via OG, tolerating well with minimal to no residuals. Maintained on empiric cefepime .Afebrile. 03/05/2019 patient was admitted to hospital with acute hypoxic respiratory failure secondary to pulmonary edema, severe aortic stenosis. Patient remained on mechanical ventilatorand sedated.. Currently being continued onIV Lasix and is also on pressor support with Levophed. Patient is diuresing well. 2-D echocardiogram showed ejection fraction 50-55% and severe pulmonary hypertension with pulmonary arterial pressure of 67. Otherwise patient did have hematuria for which urology has seen the patient and recommends outpatient cystoscopy and no active bleeding currently. He is also on IV Cardizem drip. Patient is receiving NG tube feedings. WBC 9.5 and hemoglobin 15.7 bicarb is 32 and creatinine level is 0.9.patient is also on empiric antibiotics in the form of cefepime. Discussed with his at bedside in detail. 03/06/2018 Patient is currently sitting in a chair. Tolerating oral diet. Still having dyspnea at rest. Currently on nasal cannula oxygen. Continued on IV Lasix drip and pressor support has been discontinued. Patient was started on Diamox due to elevated CO2 level. Chest x-ray showed cardiomegaly and bilateral pleural effusion. Chest ultrasound was done and pulmonary is planning for thoracentesis.. Pulmonary and cardiology is following. Cardiology is evaluating for aortic valve replacement. 03/07/2019 patient is currently sitting in the chair. Shortness of breath at rest. Currentlybeing continued on Lasix drip. patient does have good urine output. Oxygen requirement at 15 Lhigh flow nasal cannula. Chest x-ray showed pulmonary edema and bilateral air space disease.currently on empiric antibiotics in the form of cefepime. No leukocytosis is now. Patient is afebrile. 03/14/2019 Patient is currently sitting in the chair. Still requiring high flow oxygen with another cannula at 6 L. Does have exertional shortness of breath and very weak and lethargic. Patient is being continued on Lasix by mouth. Patient does have severe aortic stenosis. Patient may need cardiac catheterization and valve replacement down the road. Patient is being continued on medical management as per cardiology. Patient is being transferred to telemetry floor today. Denied any complaints of chest pain or worsening shortness of breath. No fever no chills. No nausea vomiting or abdominal pain. Current medications reviewed. Objective - Vital Signs Vital signs: Vital Signs Temp 98.3 F 03/14/19 16:00 Pulse 92 03/14/19 16:36 Resp 16 03/14/19 16:00 BP 103/83 03/14/19 16:00 Pulse Ox 94 L 03/14/19 16:00 Intake & Output 03/13/19 03/14/19 03/14/19 18:59 06:59 18:59 Intake Total 666 689 4692 Output Total 500 775 750 Balance -300 -375 256 Weight 94.9 kg Intake: Oral 198 789 7293 Output: Urine 500 775 750 Other: Voiding Method Indwelling Catheter Indwelling Catheter ABP, PAP, CO, CI - Last Documented Arterial Blood Pressure 100/61 - Exam PHYSICAL EXAMINATION: Patient is lying in the bed comfortably, no acute distress, awake alert and oriented.lethargic and weak. HEENT: Normocephalic. Neck is supple. Pupils reactive. Nostrils clear. Oral cavity is moist. Ears reveal no drainage. Neck reveals no JVD, carotid bruits, or thyromegaly. CHEST EXAMINATION: Trachea is central. Symmetrical expansion. Bibasilar diminished breath sounds and crackles.. CARDIAC: Normal S1, S2 with no gallops. No murmurs ABDOMEN: Soft. Bowel sounds normal. No organomegaly. No abdominal bruits. Extremities: 2+ edema. No clubbing or cyanosis Neurologically awake, alert, oriented x3 with well-coordinated movements. No focal deficits noted Skin: No rash or skin lesions. Psychiatric: Coperative. Nonsuicidal Musculoskeletal: No joint swelling or deformity. Normal range of motion. - Labs CBC & Chem 7: 03/12/19 11:22 03/12/19 11:22 Labs: Abnormal Lab Results - Last 24 Hours (Table) 03/13/19 03/14/19 03/14/19 Range/Units 20:23 06:57 12:00 POC Glucose (mg/dL) 198 H 103 H 148 H (75-99) mg/dL 03/14/19 Range/Units 17:03 POC Glucose (mg/dL) 135 H (75-99) mg/dL Assessment and Plan Assessment: acute hypoxic respiratory failure secondary to pulmonary edema. Improved now. Currently on high flow oxygen at 6 L nausea cannula Acute on chronic CHF due diastolic dysfunction. underlying severe aortic stenosis Bilateral pleural effusion severe aortic stenosis elevated troponin levellikely due to CHF. Possible non-ST elevated [place] Lactic acidosis resolved Acute kidney injury with creatinine level I.48 on admission. Improved to 0.96 today. Chronic atrial fibrillation on anticoagulation on Eliquis at home.was on hold due to hematuria but restarted after urology clearance. Hematuria improved. Seen by urology. Hypovolemic/cardiogenic shock requiring pressors support Previous history of CVA history of seizures Prostate cancer status post radiation therapy Hyperlipidemia Hypertension plan: Patient was on Lasix drip . Currently off pressor support. Currently being continued on oral Lasix. Cardiology is following. Monitor H&H and renal function. Completed course of antibiotics in the form of cefepime. Follow closely and further recommendations based on the clinical course. PT OT will be consulted. \prognosis is guarded. Time with Patient: Greater than 30
--- NOTE | 2019-03-15 23:27 | P.PN ---
Subjective Progress Note Date: 03/15/19 Principal diagnosis: acute hypoxic respiratory failure secondary to pulmonary edema/acute CHF. patient a pleasant 79-year-old white male admitted through the emergency department into the ICU for acute respiratory failure and pulmonary edema he is currently on a ventilator with IV sedation. 03/03/2019 remains ventilator dependent with FiO2 50%/+12 of PEEP. chest x-ray reporting small pleural effusions with bibasilar atelectasis/consolidation. sputum culture pending.Continues on Diprovan, Cardizem, Lasix and Levophed drips.telemetry atrial fib.Cardizem dose increased as per cardiology with a dose of digoxin.creatinine 1.26.Echo reporting the low-normal LV function, EF 50-55%, moderate to severe aortic stenosis, moderate to severe mitral and tricuspid regurgitation, moderate to severe pulmonary hypertension.afebrile. 03/04/2019 chest x-ray continues to report pulmonary edema. ABGs noted. remains vent dependent, FiO2 40% with PEEP down to +12. Telemetry atrial fibrillation .Continues on to prevent, Cardizem, Lasix and Levophed drips. Developed hematuria throughout the night, urology consulted, aspirin and Eliquis on hold. Tube feeds initiated during the night via OG, tolerating well with minimal to no residuals. Maintained on empiric cefepime .Afebrile. 03/05/2019 patient was admitted to hospital with acute hypoxic respiratory failure secondary to pulmonary edema, severe aortic stenosis. Patient remained on mechanical ventilatorand sedated.. Currently being continued onIV Lasix and is also on pressor support with Levophed. Patient is diuresing well. 2-D echocardiogram showed ejection fraction 50-55% and severe pulmonary hypertension with pulmonary arterial pressure of 67. Otherwise patient did have hematuria for which urology has seen the patient and recommends outpatient cystoscopy and no active bleeding currently. He is also on IV Cardizem drip. Patient is receiving NG tube feedings. WBC 9.5 and hemoglobin 15.7 bicarb is 32 and creatinine level is 0.9.patient is also on empiric antibiotics in the form of cefepime. Discussed with his at bedside in detail. 03/06/2018 Patient is currently sitting in a chair. Tolerating oral diet. Still having dyspnea at rest. Currently on nasal cannula oxygen. Continued on IV Lasix drip and pressor support has been discontinued. Patient was started on Diamox due to elevated CO2 level. Chest x-ray showed cardiomegaly and bilateral pleural effusion. Chest ultrasound was done and pulmonary is planning for thoracentesis.. Pulmonary and cardiology is following. Cardiology is evaluating for aortic valve replacement. 03/07/2019 patient is currently sitting in the chair. Shortness of breath at rest. Currentlybeing continued on Lasix drip. patient does have good urine output. Oxygen requirement at 15 Lhigh flow nasal cannula. Chest x-ray showed pulmonary edema and bilateral air space disease.currently on empiric antibiotics in the form of cefepime. No leukocytosis is now. Patient is afebrile. 03/14/2019 Patient is currently sitting in the chair. Still requiring high flow oxygen with another cannula at 6 L. Does have exertional shortness of breath and very weak and lethargic. Patient is being continued on Lasix by mouth. Patient does have severe aortic stenosis. Patient may need cardiac catheterization and valve replacement down the road. Patient is being continued on medical management as per cardiology. Patient is being transferred to telemetry floor today. Denied any complaints of chest pain or worsening shortness of breath. No fever no chills. No nausea vomiting or abdominal pain. 03/15/2019 Patient is currently sitting in a chair comfortably. Able to tolerate oral diet. Otherwise still requiring high flow oxygen with another cannula 6 L. Patient is clinically improving. No apparent distress . patient has been afebrile. Continue done Lasix by mouth. Currently on anticoagulation with Eliquis. Patient was encouraged with an ablation and PTOT. Cultures showed no growth. Active Medications Acetaminophen (Tylenol Tab) 650 mg PO Q4HR PRN PRN Reason: Fever and/or Mild Pain Albuterol/Ipratropium (Duoneb 0.5 Mg-3 Mg/3 Ml Soln) 3 ml INHALATION RT-Q2H PRN PRN Reason: Shortness Of Breath Or Wheezing Albuterol/Ipratropium (Duoneb 0.5 Mg-3 Mg/3 Ml Soln) 3 ml INHALATION RT-QID [facility] Last Admin: 03/15/19 20:25 Dose: 3 ml Documented by: Apixaban (Eliquis) 5 mg PO BID [facility] Last Admin: 03/15/19 21:38 Dose: 5 mg Documented by: Atorvastatin Calcium (Lipitor) 20 mg PO HS [facility] Last Admin: 03/15/19 21:37 Dose: 20 mg Documented by: Furosemide (Lasix) 40 mg PO TID [facility] Last Admin: 03/15/19 21:38 Dose: 40 mg Documented by: Insulin Aspart (Novolog) 0 unit SQ ACHS [facility]; Protocol Last Admin: 03/15/19 21:31 Dose: Not Given Documented by: Levetiracetam (Keppra) 500 mg PO Q12HR [facility] Last Admin: 03/15/19 21:38 Dose: 500 mg Documented by: Metoprolol Tartrate (Lopressor) 25 mg PO TID [facility] Last Admin: 03/15/19 21:37 Dose: 25 mg Documented by: Naloxone HCl (Narcan) 0.2 mg IV Q2M PRN PRN Reason: Opioid Reversal Pantoprazole Sodium (Protonix) 40 mg PO AC-BRKFST [facility] Last Admin: 03/15/19 09:53 Dose: 40 mg Documented by: Spironolactone (Aldactone) 25 mg PO BID [facility] Last Admin: 03/15/19 21:37 Dose: 25 mg Documented by: Objective - Vital Signs Vital signs: Vital Signs Temp 97.6 F 03/15/19 14:30 Pulse 84 03/15/19 16:33 Resp 17 03/15/19 14:30 BP 105/75 03/15/19 14:30 Pulse Ox 96 03/15/19 14:30 Intake & Output 03/15/19 03/15/19 03/16/19 06:59 18:59 06:59 Intake Total 700 Output Total 1875 575 Balance -1875 125 Intake: Oral 700 Output: Urine 1875 575 Uretheral (Wells) 1300 Other: Voiding Method Indwelling Catheter Indwelling Catheter ABP, PAP, CO, CI - Last Documented Arterial Blood Pressure 100/61 - Exam PHYSICAL EXAMINATION: Patient is lying in the bed comfortably, no acute distress, awake alert and o riented.lethargic and weak. HEENT: Normocephalic. Neck is supple. Pupils reactive. Nostrils clear. Oral cavity is moist. Ears reveal no drainage. Neck reveals no JVD, carotid bruits, or thyromegaly. CHEST EXAMINATION: Trachea is central. Symmetrical expansion. Bibasilar diminished breath sounds and crackles.. CARDIAC: Normal S1, S2 with no gallops. No murmurs ABDOMEN: Soft. Bowel sounds normal. No organomegaly. No abdominal bruits. Extremities: 2+ edema. No clubbing or cyanosis Neurologically awake, alert, oriented x3 with well-coordinated movements. No focal deficits noted Skin: No rash or skin lesions. Psychiatric: Coperative. Nonsuicidal Musculoskeletal: No joint swelling or deformity. Normal range of motion. - Labs CBC & Chem 7: 03/12/19 11:22 03/12/19 11:22 Labs: Abnormal Lab Results - Last 24 Hours (Table) 03/14/19 03/15/19 03/15/19 Range/Units 20:16 07:09 11:44 POC Glucose (mg/dL) 140 H 108 H 117 H (75-99) mg/dL 03/15/19 Range/Units 16:34 POC Glucose (mg/dL) 129 H (75-99) mg/dL Assessment and Plan Assessment: acute hypoxic respiratory failure secondary to pulmonary edema. Improved now. Currently on high flow oxygen at 6 L nausea cannula Acute on chronic CHF due diastolic dysfunction. underlying severe aortic steno sis Bilateral pleural effusion severe aortic stenosis elevated troponin levellikely due to CHF. Possible non-ST elevated [place] Lactic acidosis resolved Acute kidney injury with creatinine level I.48 on admission. Improved . Chronic atrial fibrillation on anticoagulation on Eliquis at home.was on hold due to hematuria but restarted after urology clearance. Hematuria improved. Seen by urology. Hypovolemic/cardiogenic shock requiring pressors support Previous history of CVA history of seizures Prostate cancer status post radiation therapy Hyperlipidemia Hypertension plan: Patient was on Lasix drip . Currently off pressor support. Currently being continued on oral Lasix. Cardiology is following. Monitor H&H and renal function. Completed course of antibiotics in the form of cefepime. Follow closely and further recommendations based on the clinical course. PT OT will be consulted. \prognosis is guarded. Time with Patient: Greater than 30
[2019-03-16 07:07] LABS: Glucose,Whole Blood 103 mg/dL (75-99)
[2019-03-16 07:08] LABS: Basophils % (A) 1 %; Eosinophils # (A) 0.2 k/uL (0-0.7); Eosinophils % (A) 3 %; HCT 48.1 % (39.0-53.0); HGB 15.4 gm/dL (13.0-17.5); Lymphocytes # (A) 1.4 k/uL (1.0-4.8); Lymphocytes % (A) 19 %; MCV 90.4 fL (80.0-100.0); Mean Platelet Volume 11.3; Monocytes # (A) 0.4 k/uL (0-1.0); Monocytes % (A) 6 %; Neutrophils # (A) 5.2 k/uL (1.3-7.7); Neutrophils % (A) 69 %; Platelet Count 195 k/uL (150-450); RBC 5.32 m/uL (4.30-5.90); RDW 13.9 % (11.5-15.5); WBC 7.6 k/uL (3.8-10.6)
[2019-03-16 07:20] LABS: Calcium 9.8 mg/dL (8.4-10.2); Potassium 4.8 mmol/L (3.5-5.1)
[2019-03-16] MEDS: IPRATROPIUM-ALBUTEROL 3 ML NEB INHALATION SCH ×4 (07:47→20:25)
[2019-03-16] MEDS: INSULIN ASPART (NovoLOG) 100 UNIT/ML VIAL SQ SCH ×4 (08:59→20:48)
[2019-03-16] MEDS: PANTOPRAZOLE 40 MG TABLET PO SCH (09:04)
[2019-03-16] MEDS: SPIRONOLACTONE 25 MG TAB PO SCH ×2 (09:04→20:47)
[2019-03-16] MEDS: FUROSEMIDE 40 MG TAB PO SCH ×3 (09:04→20:47)
[2019-03-16] MEDS: APIXABAN 5 MG TAB PO SCH ×2 (09:04→20:48)
[2019-03-16] MEDS: METOPROLOL TARTRATE 25 MG TAB PO SCH ×3 (09:04→20:48)
[2019-03-16] MEDS: levETIRAcetam 500 MG TAB PO SCH ×2 (09:05→20:47)
[2019-03-16 11:47] LABS: Glucose,Whole Blood 124 mg/dL (75-99)
--- NOTE | 2019-03-16 11:59 | P.PN ---
Subjective Progress Note Date: 03/16/19 Principal diagnosis: Respiratory failure/Pulmonary Edema/Severe PROGRESS NOTE: 03/16/2019 Patient currently sitting up in chair in no acute distress. Has no current complaints of chest pain, chest pressure, shortness of breath or palpitations. Patient has no lower extremity edema. Patient has been converted to oral Lasix 40 mg 3 times daily. Continues atrial fibrillation and anticoagulated with Eliquis, HR 80's. Continues with HF 02 at 92% saturation. Patient states he is eating and drinking well. Continues to have Wells catheter which is tea colored urine. Continue with current medical / medication regime. PHYSICAL EXAMINATION: HEENT: Head is atraumatic, normocephalic. Pupils are equal, round. Sclerae anicteric. Conjunctivae are clear. Mucous membranes of the mouth are moist. Neck is supple. There is no jugular venous distention. No carotid bruit is heard. No thyromegaly. LUNGS: Mild crackeles to RIGHT base. Course crackles and diminshed on LEFT base. No wheezes, rales or rhonchi. No chest wall tenderness is noted on palpation or with deep breathing. HEART: Irregular rhythm and controlled rate without murmurs, rubs or gallops. S1 and S2 heard. ABDOMEN: Abdominal exam revealed normal bowel sounds. The abdomen was soft, non- tender, and without masses, organomegaly, or appreciable enlargement of the abdominal aorta. EXTREMITIES: Examination of the extremities revealed easily palpable radial, femoral and pedal pulses. There was no cyanosis, clubbing or edema. No calf tenderness noted. VASCULAR: Radial and dorsalis pedis pulses palpated, no evidence of clubbing. NEUROLOGIC: Patient is awake, alert and oriented x3. There were no obvious focal neurologic abnormalities. LAB DATA: CBC WNL. NA 134. CR 1.01, BUN 35. K 4.8. FINAL IMPRESSION: 1. Severe aortic stenosis 2. Pulmonary edema, improved 3. Chronic persistent atrial fibrillation, controlled rate and anticoagulated 4. Hypertension PLAN: Continue same medical/medication regime. Will consider cardiac catheterization and JANY at a later point. We'll continue to follow patient through this admission and provide further recommendations accordingly. Follow up with Dr. Sales at discharge. Objective - Vital Signs Vital signs: Vital Signs Temp 98.3 F 03/16/19 07:19 Pulse 80 01/01/20 08:02 Resp 18 03/16/19 07:19 BP 112/72 03/16/19 07:19 Pulse Ox 92 L 03/16/19 07:19 Intake & Output 03/15/19 03/16/19 03/16/19 18:59 06:59 18:59 Intake Total 700 690 Output Total 575 1900 Balance 125 -1210 Intake: Oral 700 690 Output: Urine 575 1900 Uretheral (Wells) 1900 Other: Voiding Method Indwelling Catheter Indwelling Catheter ABP, PAP, CO, CI - Last Documented Arterial Blood Pressure 100/61 - Labs CBC & Chem 7: 03/16/19 06:44 03/16/19 06:44 Labs: Abnormal Lab Results - Last 24 Hours (Table) 03/15/19 03/15/19 03/15/19 Range/Units 11:44 16:34 21:27 Sodium (137-145) mmol/L Chloride (98-107) mmol/L Carbon Dioxide (22-30) mmol/L BUN (9-20) mg/dL Glucose (74-99) mg/dL POC Glucose (mg/dL) 117 H 129 H 133 H (75-99) mg/dL 03/16/19 03/16/19 03/16/19 Range/Units 06:44 07:02 11:39 Sodium 134 L (137-145) mmol/L Chloride 94 L (98-107) mmol/L Carbon Dioxide 34 H (22-30) mmol/L BUN 35 H (9-20) mg/dL Glucose 113 H (74-99) mg/dL POC Glucose (mg/dL) 103 H 124 H (75-99) mg/dL
--- NOTE | 2019-03-16 16:03 | P.PN ---
Subjective Progress Note Date: 03/16/19 Principal diagnosis: Acute hypoxemic respiratory failure secondary to congestive heart failure, severe stenosis, severe mitral regurgitation The patient is seen today 03/15/2019 in follow-up on the selective care unit. He is currently sitting up in a chair at the bedside. He is awake and alert in no acute distress. Maintaining O2 saturations in the 90s on 6 L high flow nasal cannula. Sputum cultures reveal no growth. He remains on bronchodilators, oral diuretics, anticoagulated with Eliquis. The patient is seen today 03/16/2019 in follow-up on the selective care unit. He remains awake and alert in no acute distress. Maintaining good O2 saturations in the 90s on 4 L high flow nasal cannula. Sitting up in a chair at the bedside. No worsening shortness of breath, cough or congestion. White count 7.6. Hemoglobin 15.4. Creatinine 1.01. Objective - Vital Signs Vital signs: Vital Signs Temp 98.1 F 03/16/19 14:31 Pulse 96 03/16/19 15:56 Resp 18 03/16/19 15:15 BP 104/70 03/16/19 14:31 Pulse Ox 97 03/16/19 14:31 Intake & Output 03/15/19 03/16/19 03/16/19 18:59 06:59 18:59 Intake Total 700 690 540 Output Total 575 1900 700 Balance 125 -1210 -160 Intake: Oral 700 690 540 Output: Urine 575 1900 700 Uretheral (Wells) 1900 Other: Voiding Method Indwelling Catheter Indwelling Catheter Indwelling Catheter ABP, PAP, CO, CI - Last Documented Arterial Blood Pressure 100/61 - Exam GENERAL EXAM: Alert, very pleasant, 79-year-old male patient, on 4 L of oxygen with a pulse ox of 97% comfortable in no apparent distress. HEAD: Normocephalic/atraumatic. EYES: Normal reaction of pupils, equal size. Conjunctiva pink, sclera white. NOSE: Clear with pink turbinates. THROAT: No erythema or exudates. NECK: No masses, no JVD, no thyroid enlargement, no adenopathy. CHEST: No chest wall deformity. Symmetrical expansion. LUNGS: Equal air entry with crackles in the posterior bases. CVS: Regular rate and rhythm, normal S1 and S2, no gallops, no murmurs, no rubs ABDOMEN: Soft, nontender. No hepatosplenomegaly, normal bowel sounds, no guarding or rigidity. EXTREMITIES: No clubbing, no edema, no cyanosis, 2+ pulses and upper and lower extremities. MUSCULOSKELETAL: Muscle strength and tone normal. SPINE: No scoliosis or deformity SKIN: No rashes CENTRAL NERVOUS SYSTEM: No focal deficits, tone is normal in all 4 extremities. PSYCHIATRIC: Alert and oriented -3. Appropriate affect. Intact judgment and insight. - Labs CBC & Chem 7: 03/16/19 06:44 03/16/19 06:44 Labs: Abnormal Lab Results - Last 24 Hours (Table) 03/15/19 03/15/19 03/16/19 Range/Units 16:34 21:27 06:44 Sodium 134 L (137-145) mmol/L Chloride 94 L (98-107) mmol/L Carbon Dioxide 34 H (22-30) mmol/L BUN 35 H (9-20) mg/dL Glucose 113 H (74-99) mg/dL POC Glucose (mg/dL) 129 H 133 H (75-99) mg/dL 03/16/19 03/16/19 Range/Units 07:02 11:39 Sodium (137-145) mmol/L Chloride (98-107) mmol/L Carbon Dioxide (22-30) mmol/L BUN (9-20) mg/dL Glucose (74-99) mg/dL POC Glucose (mg/dL) 103 H 124 H (75-99) mg/dL Assessment and Plan Assessment: #1. Acute hypoxic respiratory failure secondary to pulmonary edema, related to severe valvular heart disease including aortic stenosis and mitral regurgitation, echocardiogram showed preserved left ventricular systolic function #2. Severe aortic stenosis and severe mitral regurgitation #3. Possible non-ST segment elevated myocardial infarction with elevated troponin #4. Chronic atrial fibrillation, on oral anticoagulation, controlled rate #5. Chronic left-sided hemiparesis secondary to previous history of CVA #6. Seizure disorder on Keppra #7. Benign essential hypertension #8. History of prostate cancer and previous radiation therapy #9. Acute kidney injury, resolved Plan: The patient was seen and evaluated by Dr. Duque. Continue to titrate down the FiO2 as tolerated. The plan is for transfer to subacute rehabilitation for further improvement of his medical debility. I, the cosigning physician, performed a history & physical examination of the patient. Lungs sounds with crackles in the posterior bases. Maintaining good O2 saturations in the 90s on 4 L high flow nasal cannula I discussed the assessment and plan of care with my nurse practitioner, Chelle Becerra. I attest to the above note as dictated by her.
[2019-03-16 17:16] LABS: Glucose,Whole Blood 105 mg/dL (75-99)
[2019-03-16 20:23] LABS: Glucose,Whole Blood 152 mg/dL (75-99)
[2019-03-16] MEDS: ATORVASTATIN 20 MG TAB PO SCH (20:47)
--- NOTE | 2019-03-17 00:43 | P.PN ---
Subjective Progress Note Date: 03/16/19 Principal diagnosis: acute hypoxic respiratory failure secondary to pulmonary edema/acute CHF. patient a pleasant 79-year-old white male admitted through the emergency department into the ICU for acute respiratory failure and pulmonary edema he is currently on a ventilator with IV sedation. 03/03/2019 remains ventilator dependent with FiO2 50%/+12 of PEEP. chest x-ray reporting small pleural effusions with bibasilar atelectasis/consolidation. sputum culture pending.Continues on Diprovan, Cardizem, Lasix and Levophed drips.telemetry atrial fib.Cardizem dose increased as per cardiology with a dose of digoxin.creatinine 1.26.Echo reporting the low-normal LV function, EF 50-55%, moderate to severe aortic stenosis, moderate to severe mitral and tricuspid regurgitation, moderate to severe pulmonary hypertension.afebrile. 03/04/2019 chest x-ray continues to report pulmonary edema. ABGs noted. remains vent dependent, FiO2 40% with PEEP down to +12. Telemetry atrial fibrillation .Continues on to prevent, Cardizem, Lasix and Levophed drips. Developed hematuria throughout the night, urology consulted, aspirin and Eliquis on hold. Tube feeds initiated during the night via OG, tolerating well with minimal to no residuals. Maintained on empiric cefepime .Afebrile. 03/05/2019 patient was admitted to hospital with acute hypoxic respiratory failure secondary to pulmonary edema, severe aortic stenosis. Patient remained on mechanical ventilatorand sedated.. Currently being continued onIV Lasix and is also on pressor support with Levophed. Patient is diuresing well. 2-D echocardiogram showed ejection fraction 50-55% and severe pulmonary hypertension with pulmonary arterial pressure of 67. Otherwise patient did have hematuria for which urology has seen the patient and recommends outpatient cystoscopy and no active bleeding currently. He is also on IV Cardizem drip. Patient is receiving NG tube feedings. WBC 9.5 and hemoglobin 15.7 bicarb is 32 and creatinine level is 0.9.patient is also on empiric antibiotics in the form of cefepime. Discussed with his at bedside in detail. 03/06/2018 Patient is currently sitting in a chair. Tolerating oral diet. Still having dyspnea at rest. Currently on nasal cannula oxygen. Continued on IV Lasix drip and pressor support has been discontinued. Patient was started on Diamox due to elevated CO2 level. Chest x-ray showed cardiomegaly and bilateral pleural effusion. Chest ultrasound was done and pulmonary is planning for thoracentesis.. Pulmonary and cardiology is following. Cardiology is evaluating for aortic valve replacement. 03/07/2019 patient is currently sitting in the chair. Shortness of breath at rest. Currentlybeing continued on Lasix drip. patient does have good urine output. Oxygen requirement at 15 Lhigh flow nasal cannula. Chest x-ray showed pulmonary edema and bilateral air space disease.currently on empiric antibiotics in the form of cefepime. No leukocytosis is now. Patient is afebrile. 03/14/2019 Patient is currently sitting in the chair. Still requiring high flow oxygen with another cannula at 6 L. Does have exertional shortness of breath and very weak and lethargic. Patient is being continued on Lasix by mouth. Patient does have severe aortic stenosis. Patient may need cardiac catheterization and valve replacement down the road. Patient is being continued on medical management as per cardiology. Patient is being transferred to telemetry floor today. Denied any complaints of chest pain or worsening shortness of breath. No fever no chills. No nausea vomiting or abdominal pain. 03/15/2019 Patient is currently sitting in a chair comfortably. Able to tolerate oral diet. Otherwise still requiring high flow oxygen with another cannula 6 L. Patient is clinically improving. No apparent distress . patient has been afebrile. Continue done Lasix by mouth. Currently on anticoagulation with Eliquis. Patient was encouraged with an ablation and PTOT. Cultures showed no growth. 03/16/2019 Patient is currently sitting in a chair comfortably. No complains of chest pain or worsening shortness of breath. Currently on 4 L oxygen when nausea cannula. Continued on oral Lasix and anticoagulation, Eliquis. PTOT is following. Anticipate to be discharged to rehab and follow-up with cardiology for JANY and aortic valve replacement. Active Medications Acetaminophen (Tylenol Tab) 650 mg PO Q4HR PRN PRN Reason: Fever and/or Mild Pain Albuterol/Ipratropium (Duoneb 0.5 Mg-3 Mg/3 Ml Soln) 3 ml INHALATION RT-Q2H PRN PRN Reason: Shortness Of Breath Or Wheezing Albuterol/Ipratropium (Duoneb 0.5 Mg-3 Mg/3 Ml Soln) 3 ml INHALATION RT-QID [facility] Last Admin: 03/15/19 20:25 Dose: 3 ml Documented by: Apixaban (Eliquis) 5 mg PO BID [facility] Last Admin: 03/15/19 21:38 Dose: 5 mg Documented by: Atorvastatin Calcium (Lipitor) 20 mg PO HS [facility] Last Admin: 03/15/19 21:37 Dose: 20 mg Documented by: Furosemide (Lasix) 40 mg PO TID [facility] Last Admin: 03/15/19 21:38 Dose: 40 mg Documented by: Insulin Aspart (Novolog) 0 unit SQ ACHS [facility]; Protocol Last Admin: 03/15/19 21:31 Dose: Not Given Documented by: Levetiracetam (Keppra) 500 mg PO Q12HR [facility] Last Admin: 03/15/19 21:38 Dose: 500 mg Documented by: Metoprolol Tartrate (Lopressor) 25 mg PO TID [facility] Last Admin: 03/15/19 21:37 Dose: 25 mg Documented by: Naloxone HCl (Narcan) 0.2 mg IV Q2M PRN PRN Reason: Opioid Reversal Pantoprazole Sodium (Protonix) 40 mg PO AC-BRKFST [facility] Last Admin: 03/15/19 09:53 Dose: 40 mg Documented by: Spironolactone (Aldactone) 25 mg PO BID [facility] Last Admin: 03/15/19 21:37 Dose: 25 mg Documented by: Objective - Vital Signs Vital signs: Vital Signs Temp 97.9 F 03/16/19 20:00 Pulse 96 03/16/19 20:35 Resp 16 03/16/19 20:00 BP 117/82 03/16/19 20:00 Pulse Ox 93 L 03/16/19 20:00 Intake & Output 03/16/19 03/16/19 03/17/19 06:59 18:59 06:59 Intake Total 690 540 Output Total 1900 700 400 Balance -1210 -160 -400 Intake: Oral 690 540 Output: Urine 1900 700 400 Uretheral (Wells) 1900 Other: Voiding Method Indwelling Catheter Indwelling Catheter # Voids 1 # Bowel Movements 1 ABP, PAP, CO, CI - Last Documented Arterial Blood Pressure 100/61 - Exam PHYSICAL EXAMINATION: Patient is lying in the bed comfortably, no acute distress, awake alert and oriented.lethargic and weak. HEENT: Normocephalic. Neck is supple. Pupils reactive. Nostrils clear. Oral cavity is moist. Ears reveal no drainage. Neck reveals no JVD, carotid bruits, or thyromegaly. CHEST EXAMINATION: Trachea is central. Symmetrical expansion. Bibasilar diminished breath sounds and crackles.. CARDIAC: Normal S1, S2 with no gallops. No murmurs ABDOMEN: Soft. Bowel sounds normal. No organomegaly. No abdominal bruits. Extremities: 2+ edema. No clubbing or cyanosis Neurologically awake, alert, oriented x3 with well-coordinated movements. No focal deficits noted Skin: No rash or skin lesions. Psychiatric: Coperative. Nonsuicidal Musculoskeletal: No joint swelling or deformity. Normal range of motion. - Labs CBC & Chem 7: 03/16/19 06:44 03/16/19 06:44 Labs: Abnormal Lab Results - Last 24 Hours (Table) 03/16/19 03/16/19 03/16/19 Range/Units 06:44 07:02 11:39 Sodium 134 L (137-145) mmol/L Chloride 94 L (98-107) mmol/L Carbon Dioxide 34 H (22-30) mmol/L BUN 35 H (9-20) mg/dL Glucose 113 H (74-99) mg/dL POC Glucose (mg/dL) 103 H 124 H (75-99) mg/dL 03/16/19 03/16/19 Range/Units 17:09 20:20 Sodium (137-145) mmol/L Chloride (98-107) mmol/L Carbon Dioxide (22-30) mmol/L BUN (9-20) mg/dL Glucose (74-99) mg/dL POC Glucose (mg/dL) 105 H 152 H (75-99) mg/dL Assessment and Plan Assessment: acute hypoxic respiratory failure secondary to pulmonary edema. Improved now. Currently on high flow oxygen at 4 L nausea cannula Acute on chronic CHF due diastolic dysfunction. underlying severe aortic stenosis Bilateral pleural effusion severe aortic stenosis elevated troponin levellikely due to CHF. Possible non-ST elevated SD Lactic acidosis resolved Acute kidney injury with creatinine level I.48 on admission. Improved . Chronic atrial fibrillation on anticoagulation on Eliquis at home.was on hold due to hematuria but restarted after urology clearance. Hematuria improved. Seen by urology. Hypovolemic/cardiogenic shock requiring pressors support Previous history of CVA history of seizures Prostate cancer status post radiation therapy Hyperlipidemia Hypertension plan: Patient was on Lasix drip . Currently off pressor support. Currently being continued on oral Lasix. Cardiology is following. Monitor H&H and renal function. Completed course of antibiotics in the form of cefepime. Follow closely and further recommendations based on the clinical course. PT OT will be consulted. \prognosis is guarded. Time with Patient: Greater than 30
[2019-03-17 06:55] LABS: Glucose,Whole Blood 102 mg/dL (75-99)
[2019-03-17] MEDS: INSULIN ASPART (NovoLOG) 100 UNIT/ML VIAL SQ SCH ×2 (08:16→12:18)
[2019-03-17] MEDS: PANTOPRAZOLE 40 MG TABLET PO SCH (08:33)
[2019-03-17] MEDS: METOPROLOL TARTRATE 25 MG TAB PO SCH (08:33)
[2019-03-17] MEDS: SPIRONOLACTONE 25 MG TAB PO SCH (08:33)
[2019-03-17] MEDS: FUROSEMIDE 40 MG TAB PO SCH (08:34)
[2019-03-17] MEDS: levETIRAcetam 500 MG TAB PO SCH (08:34)
[2019-03-17] MEDS: APIXABAN 5 MG TAB PO SCH (08:34)
[2019-03-17 09:09] VITALS: BP 115/80; TEMP 97.7
--- NOTE | 2019-03-17 09:34 | P.PN ---
Subjective This is a pleasant 79-year-old with severe aortic stenosis admitted to the hospital with significant pulmonary edema. Initially he was intubated and aggressively diuresed. He has a history of chronic atrial fibrillation on long- term anticoagulation, hypertension, dyslipidemia and history of CVA with seizures. He follows in the office with Dr. Sales. He is seen and examined sitting up in bed eating breakfast on the medical floor. He denies significant shortness of breath. Has had no chest pain, dizziness or palpitations. Blood pressure 115/80, heart rate 83 afebrile and maintaining oxygen saturation on nasal cannula. Currently maintained on eliquis 5 mg BID, atorvasattin 20 mg daily, lasix 40 mg TID PO, lopressor 25 mg TID and aldactone 25 mg BID. GENERAL: Well-appearing, well-nourished and in no acute distress. NECK: Supple without JVD or thyromegaly. LUNGS: Faint bibasilar rales, no wheezes or rhonchi. Diminished bilaterally. Respiration equal and unlabored. HEART: Irregular rate and rhythm with systolic murmur at the base, no rubs or gallops. S1 and S2 heard. EXTREMITIES: Normal range of motion, no edema. No clubbing or cyanosis. Peripheral pulses intact. ASSESSMENT Aortic stenosis, severe Pulmonary edema, improving Chronic persistent atrial fibrillation on long-term anticoagulation Hypertension History of CVA with left sided residual weakness PLAN He will require further evaluation of the aortic valve as well as cardiac catheterization down the road as an outpatient. Follow-up will be arranged with Dr. Sales upon discharge. Continue current medical regimen as ordered. Hemodynamically stable, discharge per primary care team. Nurse Practitioner note has been reviewed, I agree with a documented findings and plan of care. Patient was seen and examined. Objective - Vital Signs Vital signs: Vital Signs Temp 97.7 F 03/17/19 07:51 Pulse 83 03/17/19 07:51 Resp 17 03/17/19 07:51 BP 115/80 03/17/19 07:51 Pulse Ox 96 03/17/19 07:51 Intake & Output 03/16/19 03/17/19 03/17/19 18:59 06:59 18:59 Intake Total 540 Output Total 700 550 Balance -160 -550 Weight 91.5 kg Intake: Oral 540 Output: Urine 700 550 Other: Voiding Method Indwelling Catheter Urinal # Voids 3 # Bowel Movements 1 ABP, PAP, CO, CI - Last Documented Arterial Blood Pressure 100/61 - Labs CBC & Chem 7: 03/16/19 06:44 03/16/19 06:44 Labs: Abnormal Lab Results - Last 24 Hours (Table) 03/16/19 03/16/19 03/16/19 Range/Units 11:39 17:09 20:20 POC Glucose (mg/dL) 124 H 105 H 152 H (75-99) mg/dL 03/17/19 Range/Units 06:53 POC Glucose (mg/dL) 102 H (75-99) mg/dL
[2019-03-17] MEDS: IPRATROPIUM-ALBUTEROL 3 ML NEB INHALATION SCH ×2 (09:45→13:27)
[2019-03-17 10:00] VITALS: BMI 29.7
[2019-03-17 11:45] LABS: Glucose,Whole Blood 151 mg/dL (75-99)
[2019-03-17 13:28] VITALS: RESP 18
[2019-03-17 13:41] VITALS: PULSE 103
--- NOTE | 2019-03-17 14:06 | P.DS ---
Providers Date of admission: 03/01/19 20:00 Expected date of discharge: 03/17/19 Attending physician: Evan Mary Consults: 03/01/19 20:00 Consult Physician Stat Consulting Provider: Irene Gomez Consult Reason/Comments: icu patient Do you want consulting provider notified?: Already Contacted 03/02/19 07:39 Consult Physician Stat Consulting Provider: Massiel Webb Consult Reason/Comments: coranary syndrome Do you want consulting provider notified?: Yes 03/04/19 03:29 Consult Physician Urgent Consulting Provider: Samson Cruz Consult Reason/Comments: Hematuria Do you want consulting provider notified?: Yes, Notify in am 03/07/19 15:24 Consult Physician Routine Consulting Provider: Jose Marquez Consult Reason/Comments: possible IPR Do you want consulting provider notified?: Yes Primary care physician: Evan Mary Hospital Course: Discharge diagnoses acute hypoxic respiratory failure secondary to pulmonary edema. Improved now. Currently on oxygen at 4 L nausea cannula Acute on chronic CHF due diastolic dysfunction. underlying severe aortic stenosis Bilateral pleural effusion severe aortic stenosis elevated troponin levellikely due to CHF. Possible non-ST elevated LA Lactic acidosis resolved Acute kidney injury with creatinine level I.48 on admission. Improved . Chronic atrial fibrillation on anticoagulation on Eliquis at home.was on hold due to hematuria but restarted after urology clearance. Hematuria improved. Seen by urology. Hypovolemic/cardiogenic shock requiring pressors support Previous history of CVA history of seizures Prostate cancer status post radiation therapy Hyperlipidemia Hypertension Hospital course patient a pleasant 79-year-old white male admitted through the emergency department into the ICU for acute respiratory failure and pulmonary edema he is currently on a ventilator with IV sedation. 03/03/2019 remains ventilator dependent with FiO2 50%/+12 of PEEP. chest x-ray reporting small pleural effusions with bibasilar atelectasis/consolidation. sputum culture pending.Continues on Diprovan, Cardizem, Lasix and Levophed drips.telemetry atrial fib.Cardizem dose increased as per cardiology with a dose of digoxin.creatinine 1.26.Echo reporting the low-normal LV function, EF 50-55%, moderate to severe aortic stenosis, moderate to severe mitral and tricuspid regurgitation, moderate to severe pulmonary hypertension.afebrile. 03/04/2019 chest x-ray continues to report pulmonary edema. ABGs noted. remains vent dependent, FiO2 40% with PEEP down to +12. Telemetry atrial fibrillation .Continues on to prevent, Cardizem, Lasix and Levophed drips. Developed hematuria throughout the night, urology consulted, aspirin and Eliquis on hold. Tube feeds initiated during the night via OG, tolerating well with minimal to no residuals. Maintained on empiric cefepime .Afebrile. 03/05/2019 patient was admitted to hospital with acute hypoxic respiratory failure secondary to pulmonary edema, severe aortic stenosis. Patient remained on mechanical ventilatorand sedated.. Currently being continued onIV Lasix and is also on pressor support with Levophed. Patient is diuresing well. 2-D echocardiogram showed ejection fraction 50-55% and severe pulmonary hypertension with pulmonary arterial pressure of 67. Otherwise patient did have hematuria for which urology has seen the patient and recommends outpatient cystoscopy and no active bleeding currently. He is also on IV Cardizem drip. Patient is receiving NG tube feedings. WBC 9.5 and hemoglobin 15.7 bicarb is 32 and creatinine level is 0.9.patient is also on empiric antibiotics in the form of cefepime. Discussed with his at bedside in detail. 03/06/2018 Patient is currently sitting in a chair. Tolerating oral diet. Still having dy spnea at rest. Currently on nasal cannula oxygen. Continued on IV Lasix drip and pressor support has been discontinued. Patient was started on Diamox due to elevated CO2 level. Chest x-ray showed cardiomegaly and bilateral pleural effusion. Chest ultrasound was done and pulmonary is planning for thoracentesis.. Pulmonary and cardiology is following. Cardiology is evaluating for aortic valve replacement. 03/07/2019 patient is currently sitting in the chair. Shortness of breath at rest. Currentlybeing continued on Lasix drip. patient does have good urine output. Oxygen requirement at 15 Lhigh flow nasal cannula. Chest x-ray showed pulmonary edema and bilateral air space disease.currently on empiric antibiotics in the form of cefepime. No leukocytosis is now. Patient is afebrile. 03/14/2019 Patient is currently sitting in the chair. Still requiring high flow oxygen with another cannula at 6 L. Does have exertional shortness of breath and very weak and lethargic. Patient is being continued on Lasix by mouth. Patient does have severe aortic stenosis. Patient may need cardiac catheterization and valve replacement down the road. Patient is being continued on medical management as per cardiology. Patient is being transferred to telemetry floor today. Denied any complaints of chest pain or worsening shortness of breath. No fever no chills. No nausea vomiting or abdominal pain. 03/15/2019 Patient is currently sitting in a chair comfortably. Able to tolerate oral diet. Otherwise still requiring high flow oxygen with another cannula 6 L. Patient is clinically improving. No apparent distress . patient has been afebrile. Continue done Lasix by mouth. Currently on anticoagulation with Eliquis. Patient was encouraged with an ablation and PTOT. Cultures showed no growth. 03/16/2019 Patient is currently sitting in a chair comfortably. No complains of chest pain or worsening shortness of breath. Currently on 4 L oxygen when nausea cannula. Continued on oral Lasix and anticoagulation, Eliquis. PTOT is following. Anticipate to be discharged to rehab and follow-up with cardiology for JANY and aortic valve replacement. Patient currently sitting in the chair comfortably. Currently on oral Lasix and on oxygen via nasal cannula at 4 L. Able to tolerate oral diet. Denied any complaints of chest pain or shortness of breath. Leg swelling is much improved. No nausea vomiting or abdominal pain or diarrhea. Patient has been afebrile. No headache or dizziness or lightheadedness. patient is being transferred to rehab today. PHYSICAL EXAMINATION: Patient is lying in the bed comfortably, no acute distress, awake alert and oriented.lethargic and weak. HEENT: Normocephalic. Neck is supple. Pupils reactive. Nostrils clear. Oral cavity is moist. Ears reveal no drainage. Neck reveals no JVD, carotid bruits, or thyromegaly. CHEST EXAMINATION: Trachea is central. Symmetrical expansion. Bibasilar diminished breath sounds and crackles.. CARDIAC: Normal S1, S2 with no gallops. No murmurs ABDOMEN: Soft. Bowel sounds normal. No organomegaly. No abdominal bruits. Extremities: 2+ edema. No clubbing or cyanosis Neurologically awake, alert, oriented x3 with well-coordinated movements. No focal deficits noted Skin: No rash or skin lesions. Psychiatric: Coperative. Nonsuicidal Musculoskeletal: No joint swelling or deformity. Normal range of motion. Vital Signs 03/17/19 03/17/19 03/17/19 07:51 09:45 09:57 Temperature 97.7 F Pulse Rate 96 92 Pulse Rate [ 83 Pulse Oximetery ] Respiratory 17 Rate Blood Pressure 115/80 [Left Arm] O2 Sat by Pulse 96 94 L Oximetry 03/17/19 03/17/19 13:27 13:40 Temperature Pulse Rate 101 H 103 H Pulse Rate [ Pulse Oximetery ] Respiratory 18 18 Rate Blood Pressure [Left Arm] O2 Sat by Pulse Oximetry Total time taken greater than 35 minutes including 18 minutes for counseling and coordination of care. Patient Condition at Discharge: Fair Plan - Discharge Summary Discharge Rx Participant: No New Discharge Prescriptions: New Spironolactone [Aldactone] 25 mg PO BID #60 tab Atorvastatin [Lipitor] 20 mg PO HS #30 tab Metoprolol Tartrate [Lopressor] 25 mg PO TID #90 tab Furosemide [Lasix] 40 mg PO TID #90 tab Continue Apixaban [Eliquis] 5 mg PO BID tab Multivitamins, Thera [Multivitamin (formulary)] 1 tab PO DAILY Cholecalciferol [Vitamin D3 (25 Mcg = 1000 Iu)] 1,000 unit PO DAILY Aspirin EC [Ecotrin Low Dose] 81 mg PO DAILY levETIRAcetam [Keppra] 500 mg PO Q12HR #60 tab Discontinued Simvastatin [Zocor] 40 mg PO HS Metoprolol Succinate [Toprol XL] 100 mg PO HS amLODIPine BESYLATE/BENAZEPRIL [amLODIPine BESYLATE/BENAZEPRIL 5-20 MG] 1 cap PO DAILY Furosemide [Lasix] 40 mg PO DAILY #30 tablet Spironolactone [Aldactone] 25 mg PO HS Discharge Medication List Apixaban [Eliquis] 5 mg PO BID tab 11/09/14 [Rx] Cholecalciferol [Vitamin D3 (25 Mcg = 1000 Iu)] 1,000 unit PO DAILY 11/05/15 [History] Multivitamins, Thera [Multivitamin (formulary)] 1 tab PO DAILY 11/05/15 [History] Aspirin EC [Ecotrin Low Dose] 81 mg PO DAILY 03/20/16 [History] levETIRAcetam [Keppra] 500 mg PO Q12HR #60 tab 03/24/16 [Rx] Atorvastatin [Lipitor] 20 mg PO HS #30 tab 03/17/19 [Rx] Furosemide [Lasix] 40 mg PO TID #90 tab 03/17/19 [Rx] Metoprolol Tartrate [Lopressor] 25 mg PO TID #90 tab 03/17/19 [Rx] Spironolactone [Aldactone] 25 mg PO BID #60 tab 03/17/19 [Rx] Follow up Appointment(s)/Referral(s): Evan Mary DO [Primary Care Provider] - 1-2 days Artur Albright MD [STAFF PHYSICIAN] - 2 Weeks Robin Sales MD [STAFF PHYSICIAN] - 03/28/19 3:45 pm Discharge Disposition: TRANSFER TO SNF/ECF
--- NOTE | 2019-03-17 15:40 | P.PN ---
Subjective Progress Note Date: 03/17/19 Principal diagnosis: Acute hypoxemic respiratory failure secondary to congestive heart failure, severe stenosis, severe mitral regurgitation The patient is seen today 03/15/2019 in follow-up on the selective care unit. He is currently sitting up in a chair at the bedside. He is awake and alert in no acute distress. Maintaining O2 saturations in the 90s on 6 L high flow nasal cannula. Sputum cultures reveal no growth. He remains on bronchodilators, oral diuretics, anticoagulated with Eliquis. The patient is seen today 03/16/2019 in follow-up on the selective care unit. He remains awake and alert in no acute distress. Maintaining good O2 saturations in the 90s on 4 L high flow nasal cannula. Sitting up in a chair at the bedside. No worsening shortness of breath, cough or congestion. White count 7.6. Hemoglobin 15.4. Creatinine 1.01. The patient is seen today 03/17/2019 in follow-up on the regular medical floor. He is currently up in a chair at the bedside. Awake and alert in no acute distress. Denies any shortness of breath, cough or congestion. Maintaining O2 saturations in the mid 90s on 5 L/m per nasal cannula. Blood, urine and sputum cultures revealed no growth. Blood glucose 151. Objective - Vital Signs Vital signs: Vital Signs Temp 97.7 F 03/17/19 07:51 Pulse 103 H 03/17/19 13:40 Resp 18 03/17/19 13:40 BP 115/80 03/17/19 07:51 Pulse Ox 94 L 03/17/19 09:45 Intake & Output 03/16/19 03/17/19 03/17/19 18:59 06:59 18:59 Intake Total 540 Output Total 700 550 Balance -160 -550 Weight 91.5 kg 91.5 kg Intake: Oral 540 Output: Urine 700 550 Other: Voiding Method Indwelling Catheter Urinal # Voids 3 # Bowel Movements 1 ABP, PAP, CO, CI - Last Documented Arterial Blood Pressure 100/61 - Exam GENERAL EXAM: Alert, very pleasant, 79-year-old male patient, on 5 L of oxygen with a pulse ox of 94% comfortable in no apparent distress. HEAD: Normocephalic/atraumatic. EYES: Normal reaction of pupils, equal size. Conjunctiva pink, sclera white. NOSE: Clear with pink turbinates. THROAT: No erythema or exudates. NECK: No masses, no JVD, no thyroid enlargement, no adenopathy. CHEST: No chest wall deformity. Symmetrical expansion. LUNGS: Equal air entry with crackles in the posterior bases. CVS: Regular rate and rhythm, normal S1 and S2, no gallops, no murmurs, no rubs ABDOMEN: Soft, nontender. No hepatosplenomegaly, normal bowel sounds, no guarding or rigidity. EXTREMITIES: No clubbing, no edema, no cyanosis, 2+ pulses and upper and lower extremities. MUSCULOSKELETAL: Muscle strength and tone normal. SPINE: No scoliosis or deformity SKIN: No rashes CENTRAL NERVOUS SYSTEM: No focal deficits, tone is normal in all 4 extremities. PSYCHIATRIC: Alert and oriented. Appropriate affect. Intact judgment and insight. - Labs CBC & Chem 7: 03/16/19 06:44 03/16/19 06:44 Labs: Abnormal Lab Results - Last 24 Hours (Table) 03/16/19 03/16/19 03/17/19 Range/Units 17:09 20:20 06:53 POC Glucose (mg/dL) 105 H 152 H 102 H (75-99) mg/dL 03/17/19 Range/Units 11:38 POC Glucose (mg/dL) 151 H (75-99) mg/dL Assessment and Plan Assessment: #1. Acute hypoxic respiratory failure secondary to pulmonary edema, related to severe valvular heart disease including aortic stenosis and mitral regurgitation, echocardiogram showed preserved left ventricular systolic function #2. Severe aortic stenosis and severe mitral regurgitation #3. Possible non-ST segment elevated myocardial infarction with elevated troponin #4. Chronic atrial fibrillation, on oral anticoagulation, controlled rate #5. Chronic left-sided hemiparesis secondary to previous history of CVA #6. Seizure disorder on Keppra #7. Benign essential hypertension #8. History of prostate cancer and previous radiation therapy #9. Acute kidney injury, resolved Plan: The patient was seen and evaluated by Dr. Duque. Continue to titrate down the FiO2 as tolerated. The plan is for transfer to subacute rehabilitation for further improvement of his medical debility. If not transferred today we'll continue to follow. I, the cosigning physician, performed a history & physical examination of the patient. Lungs sounds with crackles in the posterior bases. Maintaining good O2 saturations in the 90s on 5 L high flow nasal cannula I discussed the assessment and plan of care with my nurse practitioner, Chelle Becerra. I attest to the above note as dictated by her.
== END 2019-03-17 15:44 | DRG 207 ==
LOC: EC 17:51 → 2SICU 20:00 → 4SSUR 03-14 18:19
PROVIDERS: ADMIT Family Medicine; ATTEND Family Medicine
PROC: 5A1955Z Respiratory Ventilation, Greater than 96 Consecutive Hours (ICD-10-PCS; principal; 2019-03-01)
PROC: 0BH17EZ Insertion of Endotracheal Airway into Trachea, Via Natural or Artificial Opening (ICD-10-PCS; 2019-03-01)
PROC: 05H633Z Insertion of Infusion Device into Left Subclavian Vein, Percutaneous Approach (ICD-10-PCS; 2019-03-03)
PROC: 03HC33Z Insertion of Infusion Device into Left Radial Artery, Percutaneous Approach (ICD-10-PCS; 2019-03-03)
DX: J96.01 Acute respiratory failure with hypoxia (principal); I50.33 Acute on chronic diastolic (congestive) heart failure; R57.0 Cardiogenic shock; I21.4 Non-ST elevation (NSTEMI) myocardial infarction; E87.4 Mixed disorder of acid-base balance; I48.19 Other persistent atrial fibrillation; I69.354 Hemiplegia and hemiparesis following cerebral infarction affecting left non-dominant side; J98.11 Atelectasis; N17.9 Acute kidney failure, unspecified; G93.1 Anoxic brain damage, not elsewhere classified; I27.20 Pulmonary hypertension, unspecified; R16.0 Hepatomegaly, not elsewhere classified; I11.0 Hypertensive heart disease with heart failure; E78.5 Hyperlipidemia, unspecified; G40.909 Epilepsy, unspecified, not intractable, without status epilepticus; I08.3 Combined rheumatic disorders of mitral, aortic and tricuspid valves; R31.0 Gross hematuria; E86.1 Hypovolemia; T50.2X5A Adverse effect of carbonic-anhydrase inhibitors, benzothiadiazides and other diuretics, initial encounter; R26.2 Difficulty in walking, not elsewhere classified; E66.9 Obesity, unspecified; Z68.29 Body mass index [BMI] 29.0-29.9, adult; Z79.01 Long term (current) use of anticoagulants; Z79.82 Long term (current) use of aspirin; Z79.899 Other long term (current) drug therapy; Z85.46 Personal history of malignant neoplasm of prostate; Z87.891 Personal history of nicotine dependence; Z92.3 Personal history of irradiation; Z82.0 Family history of epilepsy and other diseases of the nervous system; Z82.49 Family history of ischemic heart disease and other diseases of the circulatory system; Z83.3 Family history of diabetes mellitus; Z81.1 Family history of alcohol abuse and dependence
CPT/HCPCS: 31500; 36415; 36600; 70450; 71045; 76604; 76770; 80048; 80053; 80306; 81001; 82140; 82550; 82803; 82805; 83605; 83735; 83880; 84132; 84484; 85025; 85610; 85730; 87040; 87070; 87086; 87205; 93005; 93306; 94002; 94003; 94640; 94660; 94760; 96361; 96365; 96375; 99285; 99291

== ENCOUNTER 2020-01-18 00:26 | Inpatient (IN) | payer MEDICARE ==
[2020-01-18] MEDS ORDERED: HYDROcodone/APAP 5-325MG 1 EACH TAB PO STA (00:52)
--- NOTE | 2020-01-18 01:07 | ED ---
Fall HPI - General Chief Complaint: Fall Stated Complaint: Fall Time Seen by Provider: 01/18/20 00:38 Source: patient Mode of arrival: wheelchair - History of Present Illness Initial Comments: this patient is an 80-year-old man who presents to be evaluated for left buttock and hip pain. The patient relates that this afternoon he was at his physician's office. He states that he got up to walk and then he had a fall. The patient states that he does havehistory of balance difficulty and has had falls since he had a stroke 5 years ago. The patient states that he felt he landed mainly on his left buttock and initially felt okay but that since that timehe has had increasing pain in the left hip and buttock. Patient states that now he is having difficulty in ambulating. Patient also has an abrasion to the dorsum the left hand, states that his last tetanus shot was he believes 5 years ago. MD Complaint: fall -: hour(s) (9) Fall From: standing When Fall Occurred: other Fall Witnessed: yes, by bystander Place Fall Occurred: other (his physician's clinic) Loss of Consciousness: none Prolonged Down Time?: no Symptoms Prior to Fall: none Location: buttocks Severity: moderate Quality: aching Context: history of frequent falls Associated Symptoms: denies - Related Data Home Medications Medication Instructions Recorded Confirmed Cholecalciferol [Vitamin D3 (25 1,000 unit PO DAILY 11/05/15 01/18/20 Mcg = 1000 Iu)] Multivitamins, Thera [Multivitamin 1 tab PO DAILY 11/05/15 01/18/20 (formulary)] Aspirin EC [Ecotrin Low Dose] 81 mg PO DAILY 03/20/16 01/18/20 Previous Rx's Medication Instructions Recorded Apixaban [Eliquis] 5 mg PO BID tab 11/09/14 levETIRAcetam [Keppra] 500 mg PO Q12HR #60 tab 03/24/16 Atorvastatin [Lipitor] 20 mg PO HS #30 tab 03/17/19 Furosemide [Lasix] 40 mg PO TID #90 tab 03/17/19 Metoprolol Tartrate [Lopressor] 25 mg PO TID #90 tab 03/17/19 Spironolactone [Aldactone] 25 mg PO BID #60 tab 03/17/19 HYDROcodone/APAP 5-325MG [[place] 1 tab PO Q4HR PRN #42 tab 01/19/20 5-325] Allergies Allergy/AdvReac Type Severity Reaction Status Date / Time No Known Allergies Allergy Verified 01/18/20 06:20 Review of Systems ROS Statement: Those systems with pertinent positive or pertinent negative responses have been documented in the HPI. ROS Other: All systems not noted in ROS Statement are negative. Constitutional: Denies: fever, weakness Respiratory: Denies: cough, dyspnea Cardiovascular: Denies: chest pain, palpitations, edema Gastrointestinal: Denies: abdominal pain, nausea, vomiting Genitourinary: Denies: dysuria Musculoskeletal: Reports: arthralgia. Denies: back pain Skin: Denies: rash Neurological: Denies: headache, weakness, numbness Past Medical History Past Medical History: Atrial Fibrillation, Heart Failure, CVA/TIA, Hyperlipidemia, Hypertension Additional Past Medical History / Comment(s): prostate cancer 2008, radiation treatment, last stroke was October 2014 and 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 History of Any Multi-Drug Resistant Organisms: None Reported Additional Past Surgical History / Comment(s): colonoscopy x3, Past Anesthesia/Blood Transfusion Reactions: No Reported Reaction Past Psychological History: No Psychological Hx Reported Smoking Status: Never smoker Past Alcohol Use History: None Reported Past Drug Use History: None Reported - Past Family History Sister(s) Family Medical History: Diabetes Mellitus, Myocardial Infarction ([place]) Additional Family Medical History / Comment(s): sister from an [place] Mother Family Medical History: No Reported History Additional Family Medical History / Comment(s): multiple sclerosis Son(s) Family Medical History: Hypertension Father Additional Family Medical History / Comment(s): ETOH abuse General Exam Limitations: no limitations General appearance: alert, in no apparent distress Head exam: Present: atraumatic, normocephalic Eye exam: Present: normal appearance Neck exam: Present: normal inspection, full ROM. Absent: tenderness Respiratory exam: Present: normal lung sounds bilaterally, respiratory distress. Absent: wheezes, rales, rhonchi, stridor Cardiovascular Exam: Present: regular rate, normal rhythm, systolic murmur. A bsent: diastolic murmur, rubs, gallop GI/Abdominal exam: Present: soft. Absent: distended, tenderness, guarding, rebound, rigid, mass, pulsatile mass Extremities exam: Present: normal inspection, tenderness (lateral aspect left hip), normal capillary refill. Absent: pedal edema, calf tenderness Back exam: Present: normal inspection. Absent: CVA tenderness (R), CVA tenderness (L) Neurological exam: Present: alert. Absent: motor sensory deficit Skin exam: Present: warm, dry, normal color, other (patient has abrasion to the dorsal left hand that is dressed). Absent: rash Course Vital Signs 01/18/20 01/18/20 01/18/20 00:30 08:00 11:56 Temperature 97.9 F 97.9 F 97.6 F Pulse Rate 88 81 85 Respiratory 16 16 18 Rate Blood Pressure 132/92 124/80 111/72 O2 Sat by Pulse 94 L 95 95 Oximetry 01/18/20 01/18/20 01/18/20 16:00 17:00 17:44 Temperature 97.6 F 97.6 F Pulse Rate 85 85 Respiratory 18 18 18 Rate Blood Pressure 115/73 115/73 O2 Sat by Pulse 95 95 Oximetry Medical Decision Making - Medical Decision Making patient is an 80-year-old man who sustained fall and found to have pubic ramus fractures. Given the patient has traumatic injury will be admitted under orthopedic surgery for the night, case discussed with Dr. Roberts. Medical consultation to his physician Dr. Mary. - Lab Data Result diagrams: 01/18/20 03:06 01/18/20 03:06 Disposition Clinical Impression: Fall, Fracture of pubic ramus, Weakness Disposition: ADMITTED IP TO THIS HOSP Condition: Fair
--- NOTE | 2020-01-18 01:27 | XR ---
EXAM: XR Chest, 1 View CLINICAL HISTORY: FALL TECHNIQUE: Frontal view of the chest. COMPARISON: No relevant prior studies available. FINDINGS: Lungs: Moderate pulmonary edema. Pleural space: Unremarkable. No pneumothorax. Heart: Cardiomegaly. Mediastinum: Unremarkable. Bones/joints: Old left rib fractures. IMPRESSION: Moderate CHF
--- NOTE | 2020-01-18 01:29 | XR ---
EXAM: XR Pelvis, 1 or 2 Views CLINICAL HISTORY: fall injury TECHNIQUE: Frontal view of the pelvis. Frontal views of the left hip COMPARISON: No relevant prior studies available. FINDINGS: Bones/joints: Fracture of left superior pubic ramus near acetabulum, displaced by about 5 mm. Fracture of left inferior pubic ramus near pubic symphysis, displaced by about 8 mm. Osteopenia. No Dislocation Soft tissues: No soft tissue gas. Peripheral vascular calcifications. IMPRESSION: 1. Fracture of left superior pubic ramus near acetabulum, displaced by about 5 mm. 2. Fracture of left inferior pubic ramus near pubic symphysis, displaced by about 8 mm.
--- NOTE | 2020-01-18 02:41 | CT ---
EXAM: CT Pelvis Without Intravenous Contrast CLINICAL HISTORY: pelvis fracture TECHNIQUE: Axial computed tomography images of the pelvis without intravenous contrast. CTDI is 25.227 mGy and DLP is 807.8 mGy-cm. This CT exam was performed using one or more of the following dose reduction techniques: automated exposure control, adjustment of the mA and/or kV according to patient size, and/or use of iterative reconstruction technique. Coronal and sagittal reformatted images were created and reviewed. COMPARISON: Left hip radiographs from today. FINDINGS: Bowel: Unremarkable. No obstruction. No mucosal thickening. Appendix: Normal appendix. Intraperitoneal space: Unremarkable. No free air. No significant fluid collection. Bladder: Unremarkable. No stones. Reproductive: Radiation seeds in the prostate gland. Bones/joints: Comminuted fracture of left superior pubic ramus near acetabulum, displaced by about 3 mm. Fracture of midshaft of left inferior pubic ramus, displaced by about 4 mm. Osteopenia. Mild degenerative changes. No dislocation. Soft tissues: Unremarkable. Vasculature: Large amount of atherosclerotic calcifications. Lymph nodes: Unremarkable. No enlarged lymph nodes. IMPRESSION: 1. Comminuted fracture of left superior pubic ramus near acetabulum, displaced by about 3 mm. 2. Fracture of midshaft of left inferior pubic ramus, displaced by about 4 mm.
[2020-01-18] MEDS ORDERED: MAG HYDROX/AL HYDROX/SIMETH 30 ML CUP PO PRN (02:58)
[2020-01-18] MEDS ORDERED: NALOXONE 0.4 MG/ML 1 ML VIAL IV PRN (02:58)
[2020-01-18] MEDS ORDERED: MORPHINE SULFATE 4 MG/ML SYRINGE IV PRN (02:58)
[2020-01-18] MEDS ORDERED: HYDROcodone/APAP 5-325MG 1 EACH TAB PO PRN (02:58)
[2020-01-18] MEDS ORDERED: ONDANSETRON 4 MG/2 ML VIAL IVP PRN (02:58)
[2020-01-18] MEDS ORDERED: MAGNESIUM HYDROXIDE 2,400 MG/10 ML CUP PO PRN (02:58)
[2020-01-18] MEDS ORDERED: ACETAMINOPHEN TAB 325 MG TAB PO PRN (02:58)
[2020-01-18 03:13] LABS: Basophils % (A) 0 %; Eosinophils # (A) 0.1 k/uL (0-0.7); Eosinophils % (A) 1 %; HCT 48.8 % (39.0-53.0); HGB 15.2 gm/dL (13.0-17.5); Lymphocytes # (A) 1.3 k/uL (1.0-4.8); Lymphocytes % (A) 13 %; MCH 29.8 pg (25.0-35.0); MCHC 31.2 g/dL (31.0-37.0); MCV 95.7 fL (80.0-100.0); Mean Platelet Volume 9.6; Monocytes # (A) 0.6 k/uL (0-1.0); Monocytes % (A) 6 %; Neutrophils # (A) 7.8 k/uL (1.3-7.7); Neutrophils % (A) 77 %; Platelet Count 144 k/uL (150-450); RDW 14.6 % (11.5-15.5); WBC 10.1 k/uL (3.8-10.6)
[2020-01-18 03:24] LABS: Calcium 9.4 mg/dL (8.4-10.2); Potassium 4.8 mmol/L (3.5-5.1)
[2020-01-18] MEDS: CHOLECALCIFEROL 1,000 UNIT TAB PO SCH (08:58)
[2020-01-18] MEDS: ASPIRIN 81 MG PO SCH (08:58)
[2020-01-18] MEDS: APIXABAN 5 MG TAB PO SCH ×2 (08:58→20:47)
[2020-01-18] MEDS: METOPROLOL TARTRATE 25 MG TAB PO SCH ×3 (08:58→20:48)
[2020-01-18] MEDS: MULTIVITAMINS, THERA 1 EACH TAB PO SCH (08:58)
[2020-01-18] MEDS: SPIRONOLACTONE 25 MG TAB PO SCH ×2 (08:58→20:48)
[2020-01-18] MEDS: FUROSEMIDE 40 MG TAB PO SCH ×3 (08:58→20:48)
[2020-01-18] MEDS ORDERED: FAMOTIDINE 20 MG TAB PO SCH (09:00)
[2020-01-18] MEDS: levETIRAcetam 500 MG TAB PO SCH ×2 (09:02→20:48)
[2020-01-18] MEDS: ATORVASTATIN 20 MG TAB PO SCH (20:48)
--- NOTE | 2020-01-18 21:27 | P.HPIM ---
History of Present Illness H&P Date: 01/18/20 80-year-old man who presents to be evaluated for left buttock and hip pain. The patient relates that this afternoon he was at his physician's office. He states that he got up to walk and then he had a fall. The patient states that he does have a history of balance difficulty and has had falls since he had a stroke 5 years ago. patient walks with walker The patient states that he felt he landed mainly on his left buttock and initially felt okay but that since that timehe has had increasing pain in the left hip and buttock. Patient states that now he is having difficulty in ambulating. Patient also has an abrasion to the dorsum the left hand, states that his last tetanus shot was he believes 5 years ago. 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 History of Any Multi-Drug Resistant Organisms: None Reported Additional Past Surgical History / Comment(s): colonoscopy x3, Past Anesthesia/Blood Transfusion Reactions: No Reported Reaction Past Psychological History: No Psychological Hx Reported Smoking Status: Never smoker Past Alcohol Use History: None Reported Past Drug Use History: None Reported - Past Family History Sister(s) Family Medical History: Diabetes Mellitus, Myocardial Infarction ([place]) Additional Family Medical History / Comment(s): sister from an [place] Mother Family Medical History: No Reported History Additional Family Medical History / Comment(s): multiple sclerosis Son(s) Family Medical History: Hypertension Father Additional Family Medical History / Comment(s): ETOH abuse Medications and Allergies Home Medications Medication Instructions Recorded Confirmed Type Apixaban [Eliquis] 5 mg PO BID tab 11/09/14 01/18/20 Rx Cholecalciferol [Vitamin D3 (25 1,000 unit PO DAILY 11/05/15 01/18/20 History Mcg = 1000 Iu)] Multivitamins, Thera [Multivitamin 1 tab PO DAILY 11/05/15 01/18/20 History (formulary)] Aspirin EC [Ecotrin Low Dose] 81 mg PO DAILY 03/20/16 01/18/20 History levETIRAcetam [Keppra] 500 mg PO Q12HR #60 tab 03/24/16 01/18/20 Rx Atorvastatin [Lipitor] 20 mg PO HS #30 tab 03/17/19 01/18/20 Rx Furosemide [Lasix] 40 mg PO TID #90 tab 03/17/19 01/18/20 Rx Metoprolol Tartrate [Lopressor] 25 mg PO TID #90 tab 03/17/19 01/18/20 Rx Spironolactone [Aldactone] 25 mg PO BID #60 tab 03/17/19 01/18/20 Rx Allergies Allergy/AdvReac Type Severity Reaction Status Date / Time No Known Allergies Allergy Verified 01/18/20 06:20 Physical Exam Osteopathic Statement: *. No significant issues noted on an osteopathic structural exam other than those noted in the History and Physical/Consult. Vitals: Vital Signs Temp Pulse Resp BP Pulse Ox 01/18/20 11:56 97.6 F 85 18 111/72 95 01/18/20 08:00 97.9 F 81 16 124/80 95 01/18/20 00:30 97.9 F 88 16 132/92 94 L Intake and Output 01/17/20 01/18/20 01/18/20 22:59 06:59 14:59 Other: Voiding Method Indwelling Catheter Weight 94.347 kg GENERAL: This is a -80-year-old year-old in moderate apparent distress at the time of examination. Pleasant and cooperative. HEENT: Head is atraumatic, normocephalic. Pupils are equal, round, and reactive to light. Sclerae anicteric. Conjunctivae are clear. Mucus membranes of the mouth are moist. Neck is supple. RESPIRATORY: Clear to auscultation. No wheezes, rales, or rhonchi. No use of accessory muscles. Patient maintaining oxygen saturation greater than 92%. No chest wall tenderness is noted on palpation or with deep breathing. CARDIOVASCULAR: Regular rate and rhythm. S1 and S2 noted. No systolic or diastolic murmur auscultated. No JVD noted. No S3 or S4 noted. GASTROINTESTINAL: No distention noted. Abdomen soft and round. Normal active bowel sounds auscultated x 4 quadrants. No pain or tenderness noted upon palpation. INTEGUMENTARY: No cyanosis. No jaundice. No rashes noted. No cellulitis noted. EXTREMITIES: Positive pain in bilateral pelvis NEUROLOGIC: Cranial nerves II-XII intact. PSYCHIATRIC: Awake, alert, and oriented X 3. Appropriate affect. Intact judgement and insight. Results CBC & Chem 7: 01/18/20 03:06 01/18/20 03:06 Labs: Abnormal Lab Results - Last 24 Hours (Table) 01/18/20 01/18/20 Range/Units 03:06 03:06 Plt Count 144 L (150-450) k/uL Neutrophils # 7.8 H (1.3-7.7) k/uL Sodium 134 L (137-145) mmol/L BUN 34 H (9-20) mg/dL Creatinine 1.50 H (0.66-1.25) mg/dL Glucose 133 H (74-99) mg/dL Assessment and Plan (1) Fracture of pubic ramus Current Visit: Yes Status: Acute Code(s): S32.599A - OTH FRACTURE OF UNSP PUBIS, INIT ENCNTR FOR CLOSED FRACTURE SNOMED Code(s): 19588921 (2) Atrial fibrillation Current Visit: No Status: Acute Code(s): I48.91 - UNSPECIFIED ATRIAL FI BRILLATION SNOMED Code(s): 56682861 (3) CVA (cerebral vascular accident) Current Visit: No Status: Acute Code(s): I63.9 - CEREBRAL INFARCTION, UNSPECIFIED SNOMED Code(s): 013905271 (4) Chronic a-fib Current Visit: No Status: Acute Code(s): I48.2 - CHRONIC ATRIAL FIBRILLATION * DO NOT USE * SNOMED Code(s): 397208779 (5) CVA, old, ataxia Current Visit: Yes Status: Acute Code(s): I69.993 - ATAXIA FOLLOWING UNSPECIFIED CEREBROVASCULAR DISEASE SNOMED Code(s): 24375827808916 (6) Left hemiparesis Current Visit: Yes Status: Acute Code(s): G81.94 - HEMIPLEGIA, UNSPECIFIED AFFECTING LEFT NONDOMINANT SIDE SNOMED Code(s): 610787392 Plan: Patient is deemed stable from a orthopedic standpoint not requiring surgical intervention at this time is multiple core morbidities including vascular accident with hemiparesis. He is a candidate for inpatient rehabilitation versus extended care facility rehab. His first preference would be [facility]. 2 DVT prophylaxis pain control therapy occupational therapy.
[2020-01-19] MEDS: CHOLECALCIFEROL 1,000 UNIT TAB PO SCH (07:25)
[2020-01-19] MEDS: APIXABAN 5 MG TAB PO SCH ×2 (07:25→20:57)
[2020-01-19] MEDS: FAMOTIDINE 20 MG TAB PO SCH (07:26)
[2020-01-19] MEDS: FUROSEMIDE 40 MG TAB PO SCH ×3 (07:26→20:58)
[2020-01-19] MEDS: SPIRONOLACTONE 25 MG TAB PO SCH ×2 (07:26→20:58)
[2020-01-19] MEDS: ASPIRIN 81 MG PO SCH (07:26)
[2020-01-19] MEDS: MULTIVITAMINS, THERA 1 EACH TAB PO SCH (07:26)
[2020-01-19] MEDS: METOPROLOL TARTRATE 25 MG TAB PO SCH ×3 (07:26→20:58)
[2020-01-19] MEDS: levETIRAcetam 500 MG TAB PO SCH ×2 (07:27→20:57)
--- NOTE | 2020-01-19 16:19 | CDI ---
Documentation Clarification Form Date: 01/19/2020 03:47:07 PM From: Marilyn Mclain RN, CCDS Admit Date: 01/18/2020 02:58:00 AM Patient Name: Usman Martin Visit Number: [id number] Discharge Date: ATTENTION: The Clinical Documentation Specialists (CDI) and [facility] Coding Staff appreciate your assistance in clarifying documentation. Please respond to the clarification below the line at the bottom and electronically sign. The CDI & [facility] Coding staff will review the response and follow-up if needed. Please note: Queries are made part of the Legal Health Record. If you have any questions, please contact the author of this message via ITS. Dr. Evan Mary Heart failure is documented in the past medical history. Please clarify heart failure acuity and specificity. History/Risk Factors: Chronic Atrial Fibrillation, Hypertension, Heart Failure, CVA, Prostate cancer Clinical Indicators: 80-year-old male present to ED on 01/17 after a fall at his physicians office. He has a history of stroke 5 years ago. He has heart failure with ongoing treatment. Denies chest pain or edema. Lung sound bilateral are normal. 01/17 VS/Pulse OX: 132/92 88 16 97.9 94 % RA 03/02/19 Echocardiogram Results: Atrial fibrillation. There is severe concentric left ventricular hypotrophy. Overall left ventricular systolic function is low- normal with, an EF between 50-55 % 01/17 Chest X Ray: Moderate CHF Treatment: ASA 81 m po daily Lipitor 20 mg po hs Lasix 40 mg po tid Lopressor 25 mg po tid Aldactone 25 mg po bid In your professional opinion, can you please clarify the acuity and type of CHF if known? Systolic Heart Failure: Acute Chronic Acute on Chronic Diastolic Heart Failure: Acute Chronic Acute on Chronic Systolic & Diastolic Heart Failure: Acute Chronic Acute on Chronic Heart Failure Unable to Determine Other, please specify (Last Revision: June 2017) MARKD
--- NOTE | 2020-01-19 17:40 | P.HPOR ---
History of Present Illness H&P Date: 01/19/20 Chief Complaint: Left Pubic ramii fractures Patient is an 80-year-old man seen at bedside this afternoon. He was admitted through the emergency department after a recent fall at his physician's office on 01/17/2020. He has chronic left-sided weakness and difficulty with balance due to stroke from 5 years ago. He states he uses a walker normally. He lives at home with his . Immediately after his fall to his left buttock he developed left buttock and hip pain. . He presented to the emergency department where x-rays showed pubic rami fractures on the left. He denies new numbness or tingling today. He denies calf pain, fever, chills, chest pain or shortness breath. Review of Systems All systems: negative Constitutional: Denies chills, Denies fever Eyes: denies blurred vision, denies pain Ears, nose, mouth and throat: Denies headache, Denies sore throat Cardiovascular: Denies chest pain, Denies shortness of breath Respiratory: Denies cough Gastrointestinal: Denies abdominal pain, Denies diarrhea, Denies nausea, Denies vomiting Musculoskeletal: Denies myalgias Integumentary: Denies pruritus, Denies rash Neurological: Denies numbness, Denies weakness Psychiatric: Denies anxiety, Denies depression Endocrine: Denies fatigue, Denies weight change Past Medical History Past Medical History: Atrial Fibrillation, Heart Failure, CVA/TIA, Hyperlipidemia, Hypertension Additional Past Medical History / Comment(s): prostate cancer 2008, radiation treatment, last stroke was October 2014 and 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 History of Any Multi-Drug Resistant Organisms: None Reported Additional Past Surgical History / Comment(s): colonoscopy x3, Past Anesthesia/Blood Transfusion Reactions: No Reported Reaction Past Psychological History: No Psychological Hx Reported Smoking Status: Never smoker Past Alcohol Use History: None Reported Past Drug Use History: None Reported - Past Family History Sister(s) Family Medical History: Diabetes Mellitus, Myocardial Infarction (OR) Additional Family Medical History / Comment(s): sister from an OR Mother Family Medical History: No Reported History Additional Family Medical History / Comment(s): multiple sclerosis Son(s) Family Medical History: Hypertension Father Additional Family Medical History / Comment(s): ETOH abuse Medications and Allergies Home Medications Medication Instructions Recorded Confirmed Type Apixaban [Eliquis] 5 mg PO BID tab 11/09/14 01/18/20 Rx Cholecalciferol [Vitamin D3 (25 1,000 unit PO DAILY 11/05/15 01/18/20 History Mcg = 1000 Iu)] Multivitamins, Thera [Multivitamin 1 tab PO DAILY 11/05/15 01/18/20 History (formulary)] Aspirin EC [Ecotrin Low Dose] 81 mg PO DAILY 03/20/16 01/18/20 History levETIRAcetam [Keppra] 500 mg PO Q12HR #60 tab 03/24/16 01/18/20 Rx Atorvastatin [Lipitor] 20 mg PO HS #30 tab 03/17/19 01/18/20 Rx Furosemide [Lasix] 40 mg PO TID #90 tab 03/17/19 01/18/20 Rx Metoprolol Tartrate [Lopressor] 25 mg PO TID #90 tab 03/17/19 01/18/20 Rx Spironolactone [Aldactone] 25 mg PO BID #60 tab 03/17/19 01/18/20 Rx Allergies Allergy/AdvReac Type Severity Reaction Status Date / Time No Known Allergies Allergy Verified 01/18/20 06:20 Physical Examination Inspection of the pelvis left hip and lower extremities show no open wounds or erythema. There is no deformity. Range of motion of the left hip is not tested due to the fracture. He has painless range of motion of the knee, ankle and foot. He has weakness throughout the left lower extremity due to stroke. Sensation to touch is intact throughout the left lower extremity. The calf is soft nontender. 1+ dorsalis pedis pulse and less than 2 second capillary refill is present. Results X-rays and CT of the pelvis show mild displaced left superior and inferior pubic rami fractures. - Labs Labs: H & H 01/18/20 Range/Units 03:06 Hgb 15.2 (13.0-17.5) gm/dL Hct 48.8 (39.0-53.0) % Result Diagrams: 01/18/20 03:06 01/18/20 03:06 Assessment and Plan (1) Fracture of pubic ramus Narrative/Plan: There are no plans for immediate surgical intervention. He may be protected weightbearing to tolerance with walker and assist. Continue pain management and physical therapy. He would benefit from placement at a rehabilitation facility. He may be discharged to an ECF when okay with internal medicine and arrangements are made. He may follow-up as an outpatient. Current Visit: Yes Status: Acute Priority: Medium Code(s): S32.599A - OTH FRACTURE OF UNSP PUBIS, INIT ENCNTR FOR CLOSED FRACTURE SNOMED Code(s): 02775361 Time with Patient: Less than 30
[2020-01-19] MEDS: ATORVASTATIN 20 MG TAB PO SCH (20:57)
--- NOTE | 2020-01-19 22:19 | P.PN ---
Subjective Progress Note Date: 01/19/20 Patient is a pleasant 80-year-old white male who is bed pain is controlled he is sustained a fall was a fractured pubic rami. Deemed stable fracture with no intervention required he has decided to go to [facility] rehabilitation as soon as beds available. Denies any fever nausea vomiting t Objective - Vital Signs Vital signs: Vital Signs Temp 98.5 F 01/19/20 14:35 Pulse 84 01/19/20 14:35 Resp 20 01/19/20 14:35 BP 116/79 01/19/20 15:12 Pulse Ox 90 L 01/19/20 14:35 Intake & Output 01/19/20 01/19/20 01/20/20 06:59 18:59 06:59 Output Total 1350 500 Balance -1350 -500 Output: Urine 1350 500 Other: Voiding Method Indwelling Catheter Indwelling Catheter # Bowel Movements 0 - Exam GENERAL: This is a -80-year-old year-old in moderate apparent distress at the time of examination. Pleasant and cooperative. HEENT: Head is atraumatic, normocephalic. Pupils are equal, round, and reactive to light. Sclerae anicteric. Conjunctivae are clear. Mucus membranes of the mouth are moist. Neck is supple. RESPIRATORY: Clear to auscultation. No wheezes, rales, or rhonchi. No use of accessory muscles. Patient maintaining oxygen saturation greater than 92%. No chest wall tenderness is noted on palpation or with deep breathing. CARDIOVASCULAR: Regular rate and rhythm. S1 and S2 noted. No systolic or diastolic murmur auscultated. No JVD noted. No S3 or S4 noted. GASTROINTESTINAL: No distention noted. Abdomen soft and round. Normal active bowel sounds auscultated x 4 quadrants. No pain or tenderness noted upon palpation. INTEGUMENTARY: No cyanosis. No jaundice. No rashes noted. No cellulitis noted. EXTREMITIES: Positive pain in bilateral pelvis NEUROLOGIC: Cranial nerves II-XII intact. PSYCHIATRIC: Awake, alert, and oriented X 3. Appropriate affect. Intact judgement and insight. - Labs CBC & Chem 7: 01/18/20 03:06 01/18/20 03:06 Assessment and Plan (1) Fracture of pubic ramus Current Visit: Yes Status: Acute Priority: Medium Code(s): S32.599A - OTH FRACTURE OF UNSP PUBIS, INIT ENCNTR FOR CLOSED FRACTURE SNOMED Code(s): 28824538 (2) Atrial fibrillation Current Visit: No Status: Acute Code(s): I48.91 - UNSPECIFIED ATRIAL FIBRILLATION SNOMED Code(s): 56469755 (3) CVA (cerebral vascular accident) Current Visit: No Status: Acute Code(s): I63.9 - CEREBRAL INFARCTION, UNSPECIFIED SNOMED Code(s): 885849252 (4) Chronic a-fib Current Visit: No Status: Acute Code(s): I48.2 - CHRONIC ATRIAL FIBRILLATION * DO NOT USE * SNOMED Code(s): 944105531 (5) CVA, old, ataxia Current Visit: Yes Status: Acute Code(s): I69.993 - ATAXIA FOLLOWING UNSPECIFIED CEREBROVASCULAR DISEASE SNOMED Code(s): 18647338932006 (6) Left hemiparesis Current Visit: Yes Status: Acute Code(s): G81.94 - HEMIPLEGIA, UNSPECIFIED AFFECTING LEFT NONDOMINANT SIDE SNOMED Code(s): 572450751 (7) Chronic systolic (congestive) heart failure Current Visit: Yes Status: Acute Code(s): I50.22 - CHRONIC SYSTOLIC (CONGESTIVE) HEART FAILURE SNOMED Code(s): 837560272 Plan: Patient is deemed stable from a orthopedic standpoint not requiring surgical intervention at this time is multiple core morbidities including vascular accident with hemiparesis. He is a candidate for inpatient rehabilitation versus extended care facility rehab. His first preference would be [facility] rehab. 2 DVT prophylaxis pain control therapy occupational therapy.
[2020-01-20 01:19] VITALS: RESP 18
[2020-01-20] MEDS: FUROSEMIDE 40 MG TAB PO SCH ×2 (10:56→16:43)
[2020-01-20] MEDS: METOPROLOL TARTRATE 25 MG TAB PO SCH ×2 (10:56→16:43)
[2020-01-20] MEDS: CHOLECALCIFEROL 1,000 UNIT TAB PO SCH (10:57)
[2020-01-20] MEDS: levETIRAcetam 500 MG TAB PO SCH (10:57)
[2020-01-20] MEDS: APIXABAN 5 MG TAB PO SCH (10:57)
[2020-01-20] MEDS: FAMOTIDINE 20 MG TAB PO SCH (10:57)
[2020-01-20] MEDS: SPIRONOLACTONE 25 MG TAB PO SCH (10:57)
[2020-01-20] MEDS: ASPIRIN 81 MG PO SCH (11:05)
[2020-01-20] MEDS: MULTIVITAMINS, THERA 1 EACH TAB PO SCH (11:49)
--- NOTE | 2020-01-20 13:07 | P.DS ---
Providers Date of admission: 01/18/20 02:58 Expected date of discharge: 01/20/20 Attending physician: Maykel Roberts Consults: 01/18/20 02:59 Consult Physician Routine Consulting Provider: Evan Mray Consult Reason/Comments: your patient. Medical management Do you want consulting provider notified?: Yes Primary care physician: Evan Mary - Discharge Diagnosis(es) (1) Fall Current Visit: Yes Status: Acute (2) Fracture of pubic ramus Current Visit: Yes Status: Acute Priority: Medium Hospital Course: Patient is an 80-year-old man admitted through the emergency department after a recent fall at his physician's office on 01/17/2020. He has chronic left-sided weakness and difficulty with balance due to stroke from 5 years ago. He states he uses a walker normally. He lives at home with his . Immediately after his fall to his left buttock he developed left buttock and hip pain. . He presented to the emergency department where x-rays showed pubic rami fractures on the left. He denies new numbness or tingling today. He denies calf pain, fever, chills, chest pain or shortness breath. He was admitted for pain management and evaluation for rehab. The patient is stable day of discharge. He may be discharged to rehab if cleared by medicine. Patient Condition at Discharge: Fair Plan - Discharge Summary New Discharge Prescriptions: New HYDROcodone/APAP 5-325MG [Upton 5-325] 1 tab PO Q4HR PRN #42 tab PRN Reason: Pain No Action Apixaban [Eliquis] 5 mg PO BID tab Multivitamins, Thera [Multivitamin (formulary)] 1 tab PO DAILY Cholecalciferol [Vitamin D3 (25 Mcg = 1000 Iu)] 1,000 unit PO DAILY Aspirin EC [Ecotrin Low Dose] 81 mg PO DAILY levETIRAcetam [Keppra] 500 mg PO Q12HR #60 tab Spironolactone [Aldactone] 25 mg PO BID #60 tab Atorvastatin [Lipitor] 20 mg PO HS #30 tab Metoprolol Tartrate [Lopressor] 25 mg PO TID #90 tab Furosemide [Lasix] 40 mg PO TID #90 tab Discharge Medication List Apixaban [Eliquis] 5 mg PO BID tab 11/09/14 [Rx] Cholecalciferol [Vitamin D3 (25 Mcg = 1000 Iu)] 1,000 unit PO DAILY 11/05/15 [H istory] Multivitamins, Thera [Multivitamin (formulary)] 1 tab PO DAILY 11/05/15 [History] Aspirin EC [Ecotrin Low Dose] 81 mg PO DAILY 03/20/16 [History] levETIRAcetam [Keppra] 500 mg PO Q12HR #60 tab 03/24/16 [Rx] Atorvastatin [Lipitor] 20 mg PO HS #30 tab 03/17/19 [Rx] Furosemide [Lasix] 40 mg PO TID #90 tab 03/17/19 [Rx] Metoprolol Tartrate [Lopressor] 25 mg PO TID #90 tab 03/17/19 [Rx] Spironolactone [Aldactone] 25 mg PO BID #60 tab 03/17/19 [Rx] HYDROcodone/APAP 5-325MG [Upton 5-325] 1 tab PO Q4HR PRN #42 tab 01/19/20 [Rx] Follow up Appointment(s)/Referral(s): Evan Mary DO [Primary Care Provider] - 1-2 days Marysol Sarah [NON-STAFF] - As Needed Maykel Roberts MD [STAFF PHYSICIAN] - 01/27/20 1:00 pm Activity/Diet/Wound Care/Special Instructions: Protected Weight-bear to tolerance with walker and assist Take meds as directed Follow-up with Dr. Roberts in office. Discharge Disposition: TRANSFER TO SNF/ECF
--- NOTE | 2020-01-20 13:58 | P.PN ---
Subjective Progress Note Date: 01/20/20 Patient is a pleasant 80-year-old white male who is bed pain is controlled he is sustained a fall was a fractured pubic rami. Deemed stable fracture with no intervention required he has decided to go to [facility] rehabilitation as soon as beds available. Denies any fever nausea vomiting t 01/20/2020 significant clinical improvement. Pain controlled. Passing flatus. Denies chest pain palpitations or shortness of breath. Planning to go to subacute rehab today. Objective - Vital Signs Vital signs: Vital Signs Temp 97.9 F 01/20/20 08:06 Pulse 80 01/20/20 10:18 Resp 18 01/20/20 08:06 BP 125/83 01/20/20 08:06 Pulse Ox 91 L 01/20/20 01:17 Intake & Output 01/19/20 01/20/20 01/20/20 18:59 06:59 18:59 Output Total 500 1475 400 Balance -500 -1475 -400 Output: Urine 500 1475 400 Other: Voiding Method Indwelling Catheter Indwelling Catheter Indwelling Catheter # Voids 1 - Exam GENERAL: Sitting up in bed, no acute distress HEENT: Head is atraumatic, normocephalic. Pupils are equal, round, and reactive to light. Sclerae anicteric. Conjunctivae are clear. Mucus membranes of the mouth are moist. Neck is supple. RESPIRATORY: Clear to auscultation. No wheezes, rales, or rhonchi. No use of accessory muscles. Patient maintaining oxygen saturation greater than 92%. No chest wall tenderness is noted on palpation or with deep breathing. CARDIOVASCULAR: Regular rate and rhythm. S1 and S2 noted. No systolic or diastolic murmur auscultated. No JVD noted. No S3 or S4 noted. GASTROINTESTINAL: No distention noted. Abdomen soft and round. Normal active bowel sounds auscultated x 4 quadrants. No pain or tenderness noted upon palpation. INTEGUMENTARY: No cyanosis. No jaundice. No rashes noted. No cellulitis noted. EXTREMITIES: Bilateral pelvis pain improving NEUROLOGIC: Cranial nerves II-XII intact. PSYCHIATRIC: Awake, alert, and oriented X 3. Appropriate affect. Intact judgement and insight. - Labs CBC & Chem 7: 01/18/20 03:06 01/18/20 03:06 Assessment and Plan Assessment: (1) Fracture of pubic ramus Current Visit: Yes Status: Acute Priority: Medium Code(s): S32.599A - OTH FRACTURE OF UNSP PUBIS, INIT ENCNTR FOR CLOSED FRACTURE SNOMED Code(s): 03748667 (2) Atrial fibrillation Current Visit: No Status: Acute Code(s): I48.91 - UNSPECIFIED ATRIAL FIBRILLATION SNOMED Code(s): 10255255 (3) CVA (cerebral vascular accident) Current Visit: No Status: Acute Code(s): I63.9 - CEREBRAL INFARCTION, UNSPECIFIED SNOMED Code(s): 415158797 (4) Chronic a-fib Current Visit: No Status: Acute Code(s): I48.2 - CHRONIC ATRIAL FIBRILLATION * DO NOT USE * SNOMED Code(s): 527776946 (5) CVA, old, ataxia Current Visit: Yes Status: Acute Code(s): I69.993 - ATAXIA FOLLOWING UNSPECIFIED CEREBROVASCULAR DISEASE SNOMED Code(s): 60808939203111 (6) Left hemiparesis Current Visit: Yes Status: Acute Code(s): G81.94 - HEMIPLEGIA, UNSPECIFIED AFFECTING LEFT NONDOMINANT SIDE SNOMED Code(s): 862937553 (7) Chronic systolic (congestive) heart failure Current Visit: Yes Status: Acute Code(s): I50.22 - CHRONIC SYSTOLIC (CONGESTIVE) HEART FAILURE SNOMED Code(s): 710500246 Plan: Continue current medication regime ,monitoring and symptomatic treatment. Pain management/DVT prophylaxis as per orthopedic surgery. Patient is being discharged to subacute rehab today as per orthopedic surgery in a stable condition with guarded prognosis. The impression and plan of care has been dictated as directed. : I performed a history and examination of this patient, discussed the same with the dictator. I agree with the dictator's note ,documented as a scribe. Any ad ditional findings or plans will be noted.
[2020-01-20 14:39] VITALS: PULSE 76; TEMP 98.2
[2020-01-20 15:00] LABS: African American GFR (CKD) 46.5 (60.0-200.0); Anion Gap 9.1 mmol/L (4.00-12.00); BUN/Creat Ratio 21.88 Ratio (12.00-20.00); Calcium 9.4 mg/dL (8.7-10.3); Carbon Dioxide 26.9 mmol/L (21.6-31.8); Non-African American GFR(CKD) 40.1 (60.0-200.0); Potassium 4.4 mmol/L (3.5-5.5)
[2020-01-20 16:52] VITALS: BP 113/79
== END 2020-01-20 19:24 | DRG 536 ==
LOC: EC 00:26 → 6NMEDSUR 02:58 → 4SSUR 16:44
PROVIDERS: ADMIT Orthopaedic Surgery Sports Medicine; ATTEND Orthopaedic Surgery Sports Medicine
DX: S32.512A Fracture of superior rim of left pubis, initial encounter for closed fracture (principal); I48.20 Chronic atrial fibrillation, unspecified; I50.22 Chronic systolic (congestive) heart failure; I69.354 Hemiplegia and hemiparesis following cerebral infarction affecting left non-dominant side; I11.0 Hypertensive heart disease with heart failure; G40.909 Epilepsy, unspecified, not intractable, without status epilepticus; E78.5 Hyperlipidemia, unspecified; Z20.828 Contact with and (suspected) exposure to other viral communicable diseases; I69.393 Ataxia following cerebral infarction; R29.6 Repeated falls; Z79.01 Long term (current) use of anticoagulants; Z79.82 Long term (current) use of aspirin; Z79.899 Other long term (current) drug therapy; Z91.81 History of falling; Z85.46 Personal history of malignant neoplasm of prostate; Z92.3 Personal history of irradiation; W18.30XA Fall on same level, unspecified, initial encounter; Y92.009 Unspecified place in unspecified non-institutional (private) residence as the place of occurrence of the external cause; Z82.49 Family history of ischemic heart disease and other diseases of the circulatory system; Z83.3 Family history of diabetes mellitus; Z82.0 Family history of epilepsy and other diseases of the nervous system; Z81.1 Family history of alcohol abuse and dependence
CPT/HCPCS: 71045; 72192; 73502; 80048; 85025; 87635; 99285

== ENCOUNTER 2020-01-21 18:13 | Emergency (ER) | payer MEDICARE ==
[2020-01-21 18:21] VITALS: RESP 18; TEMP 98.4
--- NOTE | 2020-01-21 18:29 | ED ---
General Adult HPI - General Chief complaint: Urogenital Stated complaint: Blood in Urine Time Seen by Provider: 01/21/20 18:15 Source: patient, EMS Mode of arrival: EMS Limitations: physical limitation - History of Present Illness Initial comments: Patient presents to the ED by ambulance from his half-way for evaluation. Patient states that he had a Wells catheter placed a couple of weeks ago after sustaining a pelvic fracture. Per half-way report, the patient developed gross hematuria draining from his Wells catheter at about 5 PM today. Patient is on Eliquis anticoagulation therapy secondary to atrial fibrillation. Patient denies medication abuse or overdose. Patient denies any other site of bleeding. Patient denies trauma or injury, fever or chills, any pain, headache, chest pain, dyspnea, dizziness, abdominal pain, back or flank pain, nausea/vomiting/diarrhea, bloody or melanotic stool, or any other symptoms or complaints. - Related Data Home Medications Medication Instructions Recorded Confirmed Cholecalciferol [Vitamin D3 (25 1,000 unit PO DAILY@17011/05/15 01/21/20 Mcg = 1000 Iu)] Multivitamins, Thera [Multivitamin 1 tab PO DAILY@1700 11/05/15 01/21/20 (formulary)] Aspirin EC [Ecotrin Low Dose] 81 mg PO DAILY@1700 03/20/16 01/21/20 Apixaban [Eliquis] 5 mg PO BID@0800,1700 01/21/20 01/21/20 Atorvastatin [Lipitor] 20 mg PO HS@2100 01/21/20 01/21/20 Famotidine [Pepcid] 20 mg PO DAILY@0800 01/21/20 01/21/20 Furosemide [Lasix] 40 mg PO TID@0600,1100,1600 01/21/20 01/21/20 HYDROcodone/APAP 5-325MG [[place] 2 tab PO Q4HR PRN 01/21/20 01/21/20 5-325] Magnesium Hydroxide [Milk of 2,400 mg PO DAILY PRN 01/21/20 01/21/20 Magnesia] Metoprolol Tartrate [Lopressor] 25 mg PO TID@0600,1200,2100 01/21/20 01/21/20 Na Phos,M-B/Na Phos,Di-Ba [Fleet 133 ml RECTAL DAILY PRN 01/21/20 01/21/20 Adult] Spironolactone [Aldactone] 25 mg PO BID@0800,1700 01/21/20 01/21/20 bisacodyL [Dulcolax] 10 mg RECTAL Q24H PRN 01/21/20 01/21/20 levETIRAcetam [Keppra] 500 mg PO BID@0800,2100 01/21/20 01/21/20 Previous Rx's Medication Instructions Recorded HYDROcodone/APAP 5-325MG [[place] 1 tab PO Q4HR PRN #42 tab 01/19/20 5-325] Ciprofloxacin HCl 500 mg PO BID 7 Days #14 tab 01/21/20 Allergies Allergy/AdvReac Type Severity Reaction Status Date / Time No Known Allergies Allergy Verified 01/21/20 20:37 Review of Systems ROS Statement: Those systems with pertinent positive or pertinent negative responses have been documented in the HPI. ROS Other: All systems not noted in ROS Statement are negative. 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 Pelvic fracture. History of Any Multi-Drug Resistant Organisms: None Reported Additional Past Surgical History / Comment(s): colonoscopy x3, Past Anesthesia/Blood Transfusion Reactions: No Reported Reaction Past Psychological History: No Psychological Hx Reported Smoking Status: Never smoker Past Alcohol Use History: None Reported Past Drug Use History: None Reported - Past Family History Sister(s) Family Medical History: Diabetes Mellitus, Myocardial Infarction ([place]) Additional Family Medical History / Comment(s): sister from an [place] Mother Family Medical History: No Reported History Additional Family Medical History / Comment(s): multiple sclerosis Son(s) Family Medical History: Hypertension Father Additional Family Medical History / Comment(s): ETOH abuse General Exam Limitations: physical limitation General appearance: alert, in no apparent distress Head exam: Present: atraumatic, normocephalic Eye exam: Present: normal appearance, EOMI ENT exam: Present: mucous membranes moist Respiratory exam: Present: normal lung sounds bilaterally. Absent: respiratory distress, wheezes, rales, rhonchi Cardiovascular Exam: Present: regular rate, normal rhythm, normal heart sounds, other (normal radial pulses bilaterally) GI/Abdominal exam: Present: soft. Absent: distended, tenderness, guarding exam: Present: other (Wells catheter is in place draining dark red urine) External exam: Present: normal external exam Extremities exam: Absent: pedal edema, calf tenderness Back exam: Absent: CVA tenderness (R), CVA tenderness (L) Neurological exam: Present: alert, oriented X3. Absent: motor sensory deficit Psychiatric exam: Present: normal affect, normal mood Skin exam: Present: warm, dry, intact, normal color Course Vital Signs 01/21/20 18:16 Temperature 98.4 F Pulse Rate 85 Respiratory 18 Rate Blood Pressure 117/77 O2 Sat by Pulse 93 L Oximetry - Reevaluation(s) Reevaluation #1: 01/21/20 21:19 Case, H&P and lab results were discussed with Dr. Nguyen (urologist). He recommends holding the patient's Eliquis for 1 day, and having the patient's Eliquis restarted on Thursday. He feels that the patient can be discharged back to his half-way at this time. He has no further recommendations at this time. 01/21/20 21:25 Patient's hematuria is clearing with bladder irrigation. Patient continues to deny having any pain or any other symptoms. Patient is aware of his test results and my discussion with Dr. Nguyen as above. Patient feels comfortable going back to his half-way at this time. Patient was counseled about hematuria and UTIs. Patient was clearly explained return and follow-up instructions. Patient was instructed to follow up closely with his primary care provider, as well as a urologist. Patient was also instructed to hold his Eliquis until Thursday. Medical Decision Making - Medical Decision Making Patient's hematuria has cleared with bladder irrigation in the ED. Patient's hemoglobin is within normal limits. Patient is hemodynamically stable. Will discharge patient back to his half-way per urology's recommendations with instructions to hold the patient Eliquis until Thursday. Given the patient's UA findings, will also treat the patient with a course of ciprofloxacin for possible UTI. - Lab Data Result diagrams: 01/21/20 18:50 01/21/20 18:26 Lab Results 01/21/20 01/21/20 01/21/20 Range/Units 18:26 18:26 18:26 WBC (3.8-10.6) k/uL RBC (4.30-5.90) m/uL Hgb (13.0-17.5) gm/dL Hct (39.0-53.0) % MCV (80.0-100.0) fL MCH (25.0-35.0) pg MCHC (31.0-37.0) g/dL RDW (11.5-15.5) % Plt Count (150-450) k/uL Neutrophils % % Lymphocytes % % Monocytes % % Eosinophils % % Basophils % % Neutrophils # (1.3-7.7) k/uL Lymphocytes # (1.0-4.8) k/uL Monocytes # (0-1.0) k/uL Eosinophils # (0-0.7) k/uL Basophils # (0-0.2) k/uL PT 11.2 (9.0-12.0) sec INR 1.1 (<1.2) APTT 27.2 (22.0-30.0) sec Sodium 132 L (137-145) mmol/L Potassium 4.5 (3.5-5.1) mmol/L Chloride 98 (98-107) mmol/L Carbon Dioxide 25 (22-30) mmol/L Anion Gap 9 mmol/L BUN 42 H (9-20) mg/dL Creatinine 1.55 H (0.66-1.25) mg/dL Est GFR (CKD-EPI)AfAm 48 (>60 ml/min/1.73 sqM) Est GFR (CKD-EPI)NonAf 42 (>60 ml/min/1.73 sqM) Glucose 169 H (74-99) mg/dL Calcium 8.9 (8.4-10.2) mg/dL Total Bilirubin 1.6 H (0.2-1.3) mg/dL AST 35 (17-59) U/L ALT 20 (4-49) U/L Alkaline Phosphatase 69 (38-126) U/L Total Protein 7.0 (6.3-8.2) g/dL Albumin 4.0 (3.5-5.0) g/dL Urine Color Dark Red Urine Appearance Turbid (Clear) Urine RBC >182 H (0-5) /hpf Urine WBC >182 H (0-5) /hpf Urine WBC Clumps Many H (None) /hpf Urine Bacteria Many H (None) /hpf Blood Type Blood Type Confirm Blood Type Recheck Bld Type Recheck Status Antibody Screen Spec Expiration Date 01/21/20 01/21/20 01/21/20 Range/Units 18:38 18:43 18:50 WBC 11.6 H (3.8-10.6) k/uL RBC 5.27 (4.30-5.90) m/uL Hgb 16.1 (13.0-17.5) gm/dL Hct 49.1 (39.0-53.0) % MCV 93.1 (80.0-100.0) fL MCH 30.5 (25.0-35.0) pg MCHC 32.7 (31.0-37.0) g/dL RDW 13.8 (11.5-15.5) % Plt Count 162 (150-450) k/uL Neutrophils % 74 % Lymphocytes % 12 % Monocytes % 7 % Eosinophils % 3 % Basophils % 1 % Neutrophils # 8.5 H (1.3-7.7) k/uL Lymphocytes # 1.4 (1.0-4.8) k/uL Monocytes # 0.8 (0-1.0) k/uL Eosinophils # 0.3 (0-0.7) k/uL Basophils # 0.1 (0-0.2) k/uL PT (9.0-12.0) sec INR (<1.2) APTT (22.0-30.0) sec Sodium (137-145) mmol/L Potassium (3.5-5.1) mmol/L Chloride (98-107) mmol/L Carbon Dioxide (22-30) mmol/L Anion Gap mmol/L BUN (9-20) mg/dL Creatinine (0.66-1.25) mg/dL Est GFR (CKD-EPI)AfAm (>60 ml/min/1.73 sqM) Est GFR (CKD-EPI)NonAf (>60 ml/min/1.73 sqM) Glucose (74-99) mg/dL Calcium (8.4-10.2) mg/dL Total Bilirubin (0.2-1.3) mg/dL AST (17-59) U/L ALT (4-49) U/L Alkaline Phosphatase (38-126) U/L Total Protein (6.3-8.2) g/dL Albumin (3.5-5.0) g/dL Urine Color Urine Appearance (Clear) Urine RBC (0-5) /hpf Urine WBC (0-5) /hpf Urine WBC Clumps (None) /hpf Urine Bacteria (None) /hpf Blood Type A Positive Blood Type Confirm A Positive Blood Type Recheck No Previous Record Bld Type Recheck Status CABO Indicated Antibody Screen NEGATIVE Spec Expiration Date 01/24/2020 - 2337 Disposition Clinical Impression: Hematuria Narrative: possible UTI Disposition: HOME SELF-CARE Condition: Stable Instructions (If sedation given, give patient instructions): Urinary Tract Infection in Men (ED), Hematuria (ED) Additional Instructions: Return to the ER immediately should you develop increased bleeding, any significant pain, fever, vomiting, shortness of breath, feeling dizzy or faint, or new or worsening symptoms. Follow up closely with her primary care provider, as well as urology. DO NOT take any Eliquis today or tomorrow, and resume you Eliquis as per normal on Thursday. Prescriptions: Ciprofloxacin HCl 500 mg PO BID 7 Days #14 tab Is patient prescribed a controlled substance at d/c from ED?: No Referrals: Evan Mary DO [Primary Care Provider] - 1-2 days Jorge Luis Nguyen MD [STAFF PHYSICIAN] - 1-2 days Time of Disposition: 21:23
[2020-01-21] MEDS ORDERED: SODIUM CHLORIDE 0.9% IRRIGATIO 3,000 ML IRRIGATION ONE (18:45)
[2020-01-21 18:56] LABS: Basophils # (A) 0.1 k/uL (0-0.2); Basophils % (A) 1 %; Eosinophils # (A) 0.3 k/uL (0-0.7); Eosinophils % (A) 3 %; HCT 49.1 % (39.0-53.0); HGB 16.1 gm/dL (13.0-17.5); Lymphocytes # (A) 1.4 k/uL (1.0-4.8); Lymphocytes % (A) 12 %; MCH 30.5 pg (25.0-35.0); MCHC 32.7 g/dL (31.0-37.0); MCV 93.1 fL (80.0-100.0); Mean Platelet Volume 9.1; Monocytes # (A) 0.8 k/uL (0-1.0); Monocytes % (A) 7 %; Neutrophils # (A) 8.5 k/uL (1.3-7.7); Neutrophils % (A) 74 %; Platelet Count 162 k/uL (150-450); RBC 5.27 m/uL (4.30-5.90); RDW 13.8 % (11.5-15.5); WBC 11.6 k/uL (3.8-10.6)
[2020-01-21 19:05] LABS: Appearance,Urine Turbid (Clear); Bacteria,Urine Many /hpf; RBC,Urine >182 /hpf (0-5); WBC,Urine >182 /hpf (0-5)
[2020-01-21 19:12] LABS: Color,Urine Dark Red
[2020-01-21 19:13] LABS: INR 1.1 (<1.2); Partial Thromboplastin Time 27.2 sec (22.0-30.0); Prothrombin Time 11.2 sec (9.0-12.0)
[2020-01-21 19:15] LABS: Calcium 8.9 mg/dL (8.4-10.2); Potassium 4.5 mmol/L (3.5-5.1); Total Bilirubin 1.6 mg/dL (0.2-1.3)
[2020-01-21] MEDS ORDERED: SODIUM CHLORIDE 0.9% 3,000 ML IRRIGATION ONE (20:30)
[2020-01-21] MEDS ORDERED: CIPROFLOXACIN HCL 500 MG TAB PO STA (21:20)
[2020-01-21 21:47] VITALS: BP 112/69; PULSE 84
== END 2020-01-21 22:58 | disposition home or self-care (01) ==
LOC: EC 18:13
DX: R31.0 Gross hematuria (principal); I11.0 Hypertensive heart disease with heart failure; I50.9 Heart failure, unspecified; E78.5 Hyperlipidemia, unspecified; I48.91 Unspecified atrial fibrillation; G40.909 Epilepsy, unspecified, not intractable, without status epilepticus; Z79.899 Other long term (current) drug therapy; Z79.82 Long term (current) use of aspirin; Z79.01 Long term (current) use of anticoagulants; Z86.73 Personal history of transient ischemic attack (TIA), and cerebral infarction without residual deficits; Z96.0 Presence of urogenital implants; Z85.46 Personal history of malignant neoplasm of prostate
CPT/HCPCS: 36415; 51700; 80053; 81001; 85025; 85610; 85730; 86850; 86900; 86901; 87086; 99283

== ENCOUNTER 2020-01-23 08:35 | Emergency (ER) | payer MEDICARE ==
[2020-01-23 08:54] VITALS: BP 100/83; TEMP 97.3
[2020-01-23] MEDS ORDERED: PANTOPRAZOLE 40 MG/10 ML VIAL IVP STA (09:03)
--- NOTE | 2020-01-23 09:08 | ED ---
General Adult HPI - General Chief complaint: GI Bleed Stated complaint: GI Bleed Time Seen by Provider: 01/23/20 08:38 Source: patient, EMS, RN notes reviewed Mode of arrival: EMS Limitations: physical limitation - History of Present Illness Initial comments: Patient is a pleasant 80-year-old male presenting to the emergency Department with complaints of rectal and urinary blood. Patient was in the hospital a couple of days ago similar symptoms. Patient does have recent pelvis fracture. Patient was on Eliquis secondary to history of A. fib and history of stroke. This was discontinued. No abdominal pain or weakness. No fevers. Symptoms started again this morning. - Related Data Home Medications Medication Instructions Recorded Confirmed Cholecalciferol [Vitamin D3 (25 1,000 unit PO DAILY@1700 11/05/15 01/23/20 Mcg = 1000 Iu)] Multivitamins, Thera [Multivitamin 1 tab PO DAILY@1700 11/05/15 01/23/20 (formulary)] Aspirin EC [Ecotrin Low Dose] 81 mg PO DAILY@1700 03/20/16 01/23/20 Apixaban [Eliquis] 5 mg PO BID@0800,1700 01/21/20 01/23/20 Atorvastatin [Lipitor] 20 mg PO HS@2100 01/21/20 01/23/20 Famotidine [Pepcid] 20 mg PO DAILY@0800 01/21/20 01/23/20 Furosemide [Lasix] 40 mg PO TID@0600,1100,1600 01/21/20 01/23/20 HYDROcodone/APAP 5-325MG [[place] 1 - 2 tab PO Q4H PRN 01/21/20 01/23/20 5-325] Metoprolol Tartrate [Lopressor] 25 mg PO TID@0600,1200,2100 01/21/20 01/23/20 Na Phos,M-B/Na Phos,Di-Ba [Fleet 133 ml RECTAL DAILY PRN 01/21/20 01/23/20 Adult] Spironolactone [Aldactone] 25 mg PO BID@0800,1700 01/21/20 01/23/20 bisacodyL [Dulcolax] 10 mg RECTAL Q24H PRN 01/21/20 01/23/20 levETIRAcetam [Keppra] 500 mg PO BID@0800,2100 01/21/20 01/23/20 Ciprofloxacin HCl 500 mg PO BID@0800,2100 01/23/20 01/23/20 Magnesium Hydroxide [Milk of 7,200 mg PO Q48H PRN 01/23/20 01/23/20 Magnesia Concentrate] Previous Rx's Medication Instructions Recorded Cephalexin [Keflex] 500 mg PO QID #40 cap 01/23/20 Allergies Allergy/AdvReac Type Severity Reaction Status Date / Time No Known Allergies Allergy Verified 01/23/20 10:49 Review of Systems ROS Statement: Those systems with pertinent positive or pertinent negative responses have been documented in the HPI. ROS Other: All systems not noted in ROS Statement are negative. Constitutional: Denies: fever Eyes: Denies: eye pain ENT: Denies: ear pain Respiratory: Denies: cough Cardiovascular: Denies: chest pain Endocrine: Denies: fatigue Gastrointestinal: Reports: hematochezia. Denies: abdominal pain Genitourinary: Reports: hematuria. 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 Pelvic fracture. History of Any Multi-Drug Resistant Organisms: None Reported Additional Past Surgical History / Comment(s): colonoscopy x3, Past Anesthesia/Blood Transfusion Reactions: No Reported Reaction Past Psychological History: No Psychological Hx Reported Smoking Status: Never smoker Past Alcohol Use History: None Reported Past Drug Use History: None Reported - Past Family History Sister(s) Family Medical History: Diabetes Mellitus, Myocardial Infarction ([place]) Additional Family Medical History / Comment(s): sister from an [place] Mother Family Medical History: No Reported History Additional Family Medical History / Comment(s): multiple sclerosis Son(s) Family Medical History: Hypertension Father Additional Family Medical History / Comment(s): ETOH abuse General Exam Limitations: physical limitation General appearance: alert, in no apparent distress Head exam: Present: normocephalic Eye exam: Present: normal appearance Neck exam: Present: normal inspection Respiratory exam: Present: normal lung sounds bilaterally Cardiovascular Exam: Present: irregular rhythm, systolic murmur (Patient states chronic) GI/Abdominal exam: Present: soft. Absent: tenderness Rectal exam: Present: other (Maroon colored stool) exam: Present: other (Wells catheter in place with mild blood in the area.) Extremities exam: Present: normal inspection Neurological exam: Present: alert Psychiatric exam: Present: normal affect, normal mood Skin exam: Present: normal color Course Vital Signs 01/23/20 01/23/20 01/23/20 08:38 08:49 09:00 Temperature 97.3 F L Pulse Rate 102 H 91 96 Respiratory 18 22 17 Rate Blood Pressure 100/83 100/83 O2 Sat by Pulse 93 L 94 L Oximetry 01/23/20 01/23/20 01/23/20 09:30 10:00 10:30 Temperature Pulse Rate 98 87 95 Respiratory 15 12 12 Rate Blood Pressure 100/83 100/83 100/83 O2 Sat by Pulse Oximetry EKG Findings - EKG Comments: EKG Findings:: A. fib with rate of 101. QRS 146. QT 414. QTC 5-6. Left axis. Right bundle branch block. No acute ST change. Medical Decision Making - Medical Decision Making Patient reevaluated and resting comfortably in bed. Case discussed with Dr. Mary who is familiar with this patient and does recommend discharge and follow-up this week. He recommends continuing to hold Eliquis. Patient reevaluated and agreeable. Patiently placed on antibiotics for possible urinary tract infection. - Lab Data Result diagrams: 01/23/20 09:14 01/23/20 09:14 Lab Results 01/23/20 01/23/20 01/23/20 Range/Units 09:14 09:14 09:14 WBC 14.5 H (3.8-10.6) k/uL RBC 5.25 (4.30-5.90) m/uL Hgb 15.6 (13.0-17.5) gm/dL Hct 48.3 (39.0-53.0) % MCV 92.0 (80.0-100.0) fL MCH 29.7 (25.0-35.0) pg MCHC 32.3 (31.0-37.0) g/dL RDW 14.1 (11.5-15.5) % Plt Count 166 (150-450) k/uL Neutrophils % 77 % Lymphocytes % 12 % Monocytes % 6 % Eosinophils % 3 % Basophils % 0 % Neutrophils # 11.1 H (1.3-7.7) k/uL Lymphocytes # 1.7 (1.0-4.8) k/uL Monocytes # 0.9 (0-1.0) k/uL Eosinophils # 0.4 (0-0.7) k/uL Basophils # 0.1 (0-0.2) k/uL PT 11.2 (9.0-12.0) sec INR 1.1 (<1.2) APTT 25.5 (22.0-30.0) sec Sodium (137-145) mmol/L Potassium (3.5-5.1) mmol/L Chloride (98-107) mmol/L Carbon Dioxide (22-30) mmol/L Anion Gap mmol/L BUN (9-20) mg/dL Creatinine (0.66-1.25) mg/dL Est GFR (CKD-EPI)AfAm (>60 ml/min/1.73 sqM) Est GFR (CKD-EPI)NonAf (>60 ml/min/1.73 sqM) Glucose (74-99) mg/dL Calcium (8.4-10.2) mg/dL Total Bilirubin (0.2-1.3) mg/dL AST (17-59) U/L ALT (4-49) U/L Alkaline Phosphatase (38-126) U/L Total Protein (6.3-8.2) g/dL Albumin (3.5-5.0) g/dL Urine Color Urine Appearance (Clear) Urine RBC (0-5) /hpf Urine WBC (0-5) /hpf Urine Bacteria (None) /hpf Stool Occult Blood Negative (Negative) 01/23/20 01/23/20 Range/Units 09:14 09:14 WBC (3.8-10.6) k/uL RBC (4.30-5.90) m/uL Hgb (13.0-17.5) gm/dL Hct (39.0-53.0) % MCV (80.0-100.0) fL MCH (25.0-35.0) pg MCHC (31.0-37.0) g/dL RDW (11.5-15.5) % Plt Count (150-450) k/uL Neutrophils % % Lymphocytes % % Monocytes % % Eosinophils % % Basophils % % Neutrophils # (1.3-7.7) k/uL Lymphocytes # (1.0-4.8) k/uL Monocytes # (0-1.0) k/uL Eosinophils # (0-0.7) k/uL Basophils # (0-0.2) k/uL PT (9.0-12.0) sec INR (<1.2) APTT (22.0-30.0) sec Sodium 135 L (137-145) mmol/L Potassium 4.9 (3.5-5.1) mmol/L Chloride 100 (98-107) mmol/L Carbon Dioxide 24 (22-30) mmol/L Anion Gap 11 mmol/L BUN 41 H (9-20) mg/dL Creatinine 1.67 H (0.66-1.25) mg/dL Est GFR (CKD-EPI)AfAm 44 (>60 ml/min/1.73 sqM) Est GFR (CKD-EPI)NonAf 38 (>60 ml/min/1.73 sqM) Glucose 166 H (74-99) mg/dL Calcium 9.1 (8.4-10.2) mg/dL Total Bilirubin 2.6 H (0.2-1.3) mg/dL AST 47 (17-59) U/L ALT 22 (4-49) U/L Alkaline Phosphatase 73 (38-126) U/L Total Protein 7.4 (6.3-8.2) g/dL Albumin 4.1 (3.5-5.0) g/dL Urine Color Red Urine Appearance Bloody (Clear) Urine RBC >182 H (0-5) /hpf Urine WBC >182 H (0-5) /hpf Urine Bacteria Many H (None) /hpf Stool Occult Blood (Negative) Disposition Clinical Impression: Hematuria Disposition: HOME SELF-CARE Condition: Stable Instructions (If sedation given, give patient instructions): Hematuria (ED) Additional Instructions: Please follow-up with Dr. Mary this week. Continue to hold Eliquis until follo w-up. Prescription for antibiotics sent to your pharmacy[facility]. Return for increased bleeding, weakness, blood pressure changes, worsening symptoms or other concerns. Prescriptions: Cephalexin [Keflex] 500 mg PO QID #40 cap Is patient prescribed a controlled substance at d/c from ED?: No Referrals: Evan Mary DO [Primary Care Provider] - 1-2 days Time of Disposition: 11:11
[2020-01-23 09:32] LABS: Basophils # (A) 0.1 k/uL (0-0.2); Basophils % (A) 0 %; Eosinophils # (A) 0.4 k/uL (0-0.7); Eosinophils % (A) 3 %; HCT 48.3 % (39.0-53.0); HGB 15.6 gm/dL (13.0-17.5); Lymphocytes # (A) 1.7 k/uL (1.0-4.8); Lymphocytes % (A) 12 %; MCH 29.7 pg (25.0-35.0); MCHC 32.3 g/dL (31.0-37.0); Mean Platelet Volume 9.4; Monocytes # (A) 0.9 k/uL (0-1.0); Monocytes % (A) 6 %; Neutrophils # (A) 11.1 k/uL (1.3-7.7); Neutrophils % (A) 77 %; Platelet Count 166 k/uL (150-450); RBC 5.25 m/uL (4.30-5.90); RDW 14.1 % (11.5-15.5); WBC 14.5 k/uL (3.8-10.6)
[2020-01-23 09:42] LABS: Bacteria,Urine Many /hpf; INR 1.1 (<1.2); Partial Thromboplastin Time 25.5 sec (22.0-30.0); Prothrombin Time 11.2 sec (9.0-12.0); RBC,Urine >182 /hpf (0-5); WBC,Urine >182 /hpf (0-5)
[2020-01-23 09:44] LABS: Appearance,Urine Bloody (Clear); Color,Urine Red
[2020-01-23 10:02] LABS: Albumin 4.1 g/dL (3.5-5.0); Calcium 9.1 mg/dL (8.4-10.2); Total Bilirubin 2.6 mg/dL (0.2-1.3); Total Protein 7.4 g/dL (6.3-8.2)
[2020-01-23 10:06] LABS: Potassium 4.9 mmol/L (3.5-5.1)
[2020-01-23 11:00] VITALS: PULSE 95; RESP 12
== END 2020-01-23 13:26 | disposition home or self-care (01) ==
LOC: EC 08:35
DX: R31.9 Hematuria, unspecified (principal); I11.0 Hypertensive heart disease with heart failure; I48.91 Unspecified atrial fibrillation; I50.9 Heart failure, unspecified; E78.5 Hyperlipidemia, unspecified; Z79.82 Long term (current) use of aspirin; Z79.51 Long term (current) use of inhaled steroids; Z79.899 Other long term (current) drug therapy; Z86.73 Personal history of transient ischemic attack (TIA), and cerebral infarction without residual deficits; Z85.46 Personal history of malignant neoplasm of prostate; Z92.3 Personal history of irradiation
CPT/HCPCS: 36415; 93005; 80053; 85025; 85610; 85730; 82272; 81001; 87086; 99285; 96374; C9113

== ENCOUNTER → 2020-07-25 | Outpatient (CLI) | payer MEDICARE | END | disposition home or self-care (01) | LOC: LABWHC1 10:48 | PROVIDERS: ATTEND Psychiatry & Neurology Neurology | DX: G40.209 Localization-related (focal) (partial) symptomatic epilepsy and epileptic syndromes with complex partial seizures, not intractable, without status epilepticus (principal) | CPT/HCPCS: 36415; 80177 ==

== ENCOUNTER 2021-04-30 20:02 | Inpatient (IN) | payer MEDICARE ==
[2021-04-30] MEDS ORDERED: SODIUM CHLORIDE 0.9% 500 ML 500 ML IV ONE (20:04)
--- NOTE | 2021-04-30 20:29 | CT ---
EXAMINATION TYPE: CT brain wo con for TPA DATE OF EXAM: 04/30/2021 COMPARISON: 03/01/2019 HISTORY: weakness, slurring words CT DLP: 1775.5 mGycm Automated exposure control for dose reduction was used. Images of the brain obtained without contrast. There is cerebral cortical atrophy. There is patchy hypodensity in the periventricular white matter. There is no mass effect or midline shift. There is no sign of intracranial hemorrhage. There is evide nce of old right parietal cortical infarct. This is near the cerebral falx. The calvarium is intact. The skull base is intact. IMPRESSION: Cerebral atrophy. Old right parietal cortical infarct. Chronic small vessel ischemia. No acute intrac ranial abnormality. No significant change.
[2021-04-30 20:59] LABS: HGB 17.3 gm/dL (13.0-17.5); Hypochromasia Marked; MCH 30.6 pg (25.0-35.0); MCHC 31.2 g/dL (31.0-37.0); MCV 97.9 fL (80.0-100.0); Mean Platelet Volume 11.6; Platelet Count 101 k/uL (150-450); RBC 5.67 m/uL (4.30-5.90); RDW 15.3 % (11.5-15.5)
[2021-04-30 21:06] LABS: HCT 55.5 % (39.0-53.0)
--- NOTE | 2021-04-30 21:06 | CT ---
EXAMINATION TYPE: CT angio head neck DATE OF EXAM: 04/30/2021 COMPARISON: 03/20/2016 HISTORY: weakness, slurring words CT DLP: 1775.5 mGycm Automated exposure control for dose reduction was used. CONTRAST: Performed with IV Contrast, patient injected with 65 mL of Isovue 370. Images obtained from the aortic arch to the vertex of the brain with IV contrast. There are 3-D post processed images. Unfortunately there is very low density contrast in the carotid arteries which are difficult to evalu ate. There is demonstration of arterial flow in the distal vertebral arteries and the basilar artery. Left vertebral artery is large and the basilar artery appears to fill mostly from from the left side . There is arterial flow in the anterior and middle cerebral arteries. There is slight narrowing of the proximal left middle cerebral artery. There is insufficient contrast density to evaluate the posteri or cerebral arteries. There is insufficient contrast density in the cervical carotid arteries for evaluation. There is cont rast pooling in the pulmonary arteries that is consistent with significant heart failure and decrease d cardiac output. There is right pleural effusion. IMPRESSION: Limited exam. Carotid arteries of the neck are not well evaluated and thrombosis is possible. There i s large left vertebral artery and it is possible that entire intracranial circulation is from the lef t vertebral artery. Carotid ultrasound is recommended for further evaluation if clinically indicated to demonstrate flow. No evidence of intracranial hemodynamic stenosis. Insufficient contrast for evaluation of the posteri or cerebral arteries. This exam was discussed with emergency room attending staff at 9:00 PM.
[2021-04-30 21:20] LABS: Albumin 3.8 g/dL (3.5-5.0); Calcium 9.2 mg/dL (8.4-10.2); Total Bilirubin 2.6 mg/dL (0.2-1.3); Total Protein 6.7 g/dL (6.3-8.2)
[2021-04-30] MEDS: NOREPINEPHRINE 4 MG in SODIUM CHLORIDE 0.9% 250 ML IV ONE (21:21)
[2021-04-30] MEDS ORDERED: SPIRONOLACTONE 25 MG TAB PO STA (21:22)
[2021-04-30 21:23] LABS: Potassium 6.3 mmol/L (3.5-5.1)
[2021-04-30] MEDS ORDERED: APIXABAN 5 MG TAB PO STA (21:24)
[2021-04-30] MEDS ORDERED: levETIRAcetam 500 MG TAB PO STA (21:26)
[2021-04-30] MEDS ORDERED: ATORVASTATIN 20 MG TAB PO STA (21:28)
[2021-04-30] MEDS ORDERED: METOPROLOL TARTRATE 25 MG TAB PO STA (21:30)
[2021-04-30 21:52] LABS: Eosinophils # (M) 0.06 k/uL (0-0.7); Monocytes # (M) 0.78 k/uL (0-1.0); Neutrophils # (M) 4.92 k/uL (1.3-7.7); Neutrophils % (M) 82 %; Nucleated Red Blood Cells 0 /100 WBC (0-0); Total Cells Counted 200
[2021-04-30 21:53] LABS: Polychromasia Present
--- NOTE | 2021-04-30 22:17 | ED ---
General Adult HPI - General Chief complaint: Neuro Symptoms/Deficit Stated complaint: code alteplase Time Seen by Provider: 04/30/21 20:04 Source: patient, EMS, RN notes reviewed, old records reviewed Mode of arrival: EMS - History of Present Illness Initial comments: 81-year-old male presents for evaluation of weakness. Patient was brought in as a code stroke activation for slurred speech as well as generalized weakness. This began at approximately 1920. He has previous history of CVA. He is currently on Eliquis. Denies headache. Denies chest pain. He is hypotensive upon arrival. He is cyanotic with mild dyspnea. He does not complain of abdominal pain vomiting. History from the patient is somewhat limited. - Related Data Home Medications Medication Instructions Recorded Confirmed Cholecalciferol [Vitamin D3 (25 25 mcg PO DAILY 11/05/15 04/30/21 Mcg = 1000 Iu)] Multivitamins, Thera [Multivitamin 1 tab PO DAILY 11/05/15 04/30/21 (formulary)] Apixaban [Eliquis] 5 mg PO BID 01/21/20 04/30/21 Atorvastatin [Lipitor] 20 mg PO HS 01/21/20 04/30/21 Furosemide [Lasix] 40 mg PO DAILY 01/21/20 04/30/21 Metoprolol Tartrate [Lopressor] 25 mg PO BID 01/21/20 04/30/21 Spironolactone [Aldactone] 25 mg PO BID 01/21/20 04/30/21 levETIRAcetam [Keppra] 500 mg PO BID 01/21/20 04/30/21 SILVER sulfADIAZINE Cream 1 applic TOPICAL BID PRN 04/30/21 04/30/21 [Silvadene 1% Cream] Allergies Allergy/AdvReac Type Severity Reaction Status Date / Time No Known Allergies Allergy Verified 04/30/21 22:18 Review of Systems ROS Statement: Those systems with pertinent positive or pertinent negative responses have been documented in the HPI. ROS Other: All systems not noted in ROS Statement are negative. 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 Pelvic fracture. History of Any Multi-Drug Resistant Organisms: None Reported Additional Past Surgical History / Comment(s): colonoscopy x3, Past Anesthesia/Blood Transfusion Reactions: No Reported Reaction Past Psychological History: No Psychological Hx Reported Smoking Status: Never smoker Past Alcohol Use History: None Reported Past Drug Use History: None Reported - Past Family History Sister(s) Family Medical History: Diabetes Mellitus, Myocardial Infarction ([place]) Additional Family Medical History / Comment(s): sister from an [place] Mother Family Medical History: No Reported History Additional Family Medical History / Comment(s): multiple sclerosis Son(s) Family Medical History: Hypertension Father Additional Family Medical History / Comment(s): ETOH abuse General Exam General appearance: alert, in distress Head exam: Present: atraumatic, normocephalic Eye exam: Present: normal appearance, PERRL ENT exam: Present: mucous membranes dry Neck exam: Present: normal inspection. Absent: meningismus Respiratory exam: Present: respiratory distress, rales, decreased breath sounds Cardiovascular Exam: Present: regular rate, normal rhythm GI/Abdominal exam: Present: soft. Absent: distended, tenderness Extremities exam: Present: pedal edema Neurological exam: Present: alert, oriented X3, motor sensory deficit (No unilateral weakness. He is weak throughout. He has on initial NIH of 2.) Psychiatric exam: Present: normal affect, normal mood Skin exam: Present: cyanosis Course Vital Signs 04/30/21 04/30/21 04/30/21 20:08 20:15 20:30 Temperature Pulse Rate 84 79 79 Respiratory 16 30 H 29 H Rate Blood Pressure 93/34 97/79 84/70 O2 Sat by Pulse 84 L 85 L 92 L Oximetry 04/30/21 04/30/21 04/30/21 20:39 20:45 21:00 Temperature 94 F L Pulse Rate 93 71 Respiratory 27 H 26 H Rate Blood Pressure 110/28 108/81 O2 Sat by Pulse 86 L 90 L Oximetry 04/30/21 04/30/21 04/30/21 21:15 21:30 21:45 Temperature Pulse Rate 79 78 73 Respiratory 27 H 30 H 29 H Rate Blood Pressure 94/84 105/47 70/21 O2 Sat by Pulse 86 L 89 L 87 L Oximetry 04/30/21 04/30/21 04/30/21 22:00 22:15 22:30 Temperature Pulse Rate 78 78 86 Respiratory 29 H 26 H 25 H Rate Blood Pressure 74/21 107/96 87/50 O2 Sat by Pulse 87 L 88 L 85 L Oximetry 04/30/21 04/30/21 04/30/21 22:45 23:00 23:10 Temperature 93.5 F L Pulse Rate 87 81 81 Respiratory 24 26 H 29 H Rate Blood Pressure 79/68 106/83 106/83 O2 Sat by Pulse 84 L 78 L 74 L Oximetry 04/30/21 04/30/21 05/01/21 23:30 23:40 03:49 Temperature Pulse Rate 80 84 84 Respiratory 25 H Rate Blood Pressure O2 Sat by Pulse Oximetry - Reevaluation(s) Reevaluation #1: 04/30/212007 Case discussed with Dr. Meier he does recommend medical management. Patient not a TPA candidate secondary to anticoagulation and not a thrombectomy candidate secondary to low NIH Reevaluation #2: 04/30/21 22:27 I did discuss CODE STATUS with the patient and family and at this time the patient will be a full code. EKG Findings - EKG Comments: EKG Findings:: EKG: Atrial fibrillation right bundle branch block rate of 84, QRS duration 178, QTC 508 Medical Decision Making - Medical Decision Making The medical decision making was not filled out on initial chart due to a computer downtime issue. The patient had presented with slurred speech. He was a code stroke activation taken immediately to CT CT angiography. He had no unilateral symptoms. He had a mild slurred speech. The patient was hypoxic and hypotensive. He had bilateral Rales and chest x-ray suggestive of CHF. He had mildly elevated troponin and elevated BNP. He did require BiPAP for respiratory support. Additionally he required norepinephrine for blood pressure support in the setting of cardiogenic shock and CHF. He was admitted to the ICU for close monitoring. I discussed case with the admitting physician, the virtual classroom manager and the radio script writer. - Lab Data Result diagrams: 05/07/21 08:47 05/07/21 08:47 Lab Results 04/30/21 04/30/21 04/30/21 Range/Units 20:34 20:34 20:34 WBC 6.0 (3.8-10.6) k/uL RBC 5.67 (4.30-5.90) m/uL Hgb 17.3 (13.0-17.5) gm/dL Hct 55.5 H (39.0-53.0) % MCV 97.9 (80.0-100.0) fL MCH 30.6 (25.0-35.0) pg MCHC 31.2 (31.0-37.0) g/dL RDW 15.3 (11.5-15.5) % Plt Count 101 L (150-450) k/uL MPV 11.6 Neutrophils % (Manual) 82 % Lymphocytes % (Manual) 5 % Monocytes % (Manual) 13 % Eosinophils % (Manual) 1 % Neutrophils # (Manual) 4.92 (1.3-7.7) k/uL Lymphocytes # (Manual) 0.30 L (1.0-4.8) k/uL Monocytes # (Manual) 0.78 (0-1.0) k/uL Eosinophils # (Manual) 0.06 (0-0.7) k/uL Nucleated RBCs 0 (0-0) /100 WBC Manual Slide Review Performed Polychromasia Present Hypochromasia Marked PT (9.0-12.0) sec INR (<1.2) APTT (22.0-30.0) sec Sodium 133 L (137-145) mmol/L Potassium 6.3 H* (3.5-5.1) mmol/L Chloride 96 L (98-107) mmol/L Carbon Dioxide 24 (22-30) mmol/L Anion Gap 13 mmol/L BUN 61 H (9-20) mg/dL Creatinine 2.41 H (0.66-1.25) mg/dL Est GFR (CKD-EPI)AfAm 28 (>60 ml/min/1.73 sqM) Est GFR (CKD-EPI)NonAf 24 (>60 ml/min/1.73 sqM) Glucose 89 (74-99) mg/dL Calcium 9.2 (8.4-10.2) mg/dL Total Bilirubin 2.6 H (0.2-1.3) mg/dL AST 92 H (17-59) U/L ALT 40 (4-49) U/L Alkaline Phosphatase 82 (38-126) U/L Troponin I 0.042 H* (0.000-0.034) ng/mL NT-Pro-B Natriuret Pep pg/mL Total Protein 6.7 (6.3-8.2) g/dL Albumin 3.8 (3.5-5.0) g/dL TSH (0.465-4.680) mIU/L Coronavirus (PCR) (Not Detectd) 04/30/21 04/30/21 04/30/21 Range/Units 20:34 21:37 21:37 WBC (3.8-10.6) k/uL RBC (4.30-5.90) m/uL Hgb (13.0-17.5) gm/dL Hct (39.0-53.0) % MCV (80.0-100.0) fL MCH (25.0-35.0) pg MCHC (31.0-37.0) g/dL RDW (11.5-15.5) % Plt Count (150-450) k/uL MPV Neutrophils % (Manual) % Lymphocytes % (Manual) % Monocytes % (Manual) % Eosinophils % (Manual) % Neutrophils # (Manual) (1.3-7.7) k/uL Lymphocytes # (Manual) (1.0-4.8) k/uL Monocytes # (Manual) (0-1.0) k/uL Eosinophils # (Manual) (0-0.7) k/uL Nucleated RBCs (0-0) /100 WBC Manual Slide Review Polychromasia Hypochromasia PT (9.0-12.0) sec INR (<1.2) APTT (22.0-30.0) sec Sodium (137-145) mmol/L Potassium (3.5-5.1) mmol/L Chloride (98-107) mmol/L Carbon Dioxide (22-30) mmol/L Anion Gap mmol/L BUN (9-20) mg/dL Creatinine (0.66-1.25) mg/dL Est GFR (CKD-EPI)AfAm (>60 ml/min/1.73 sqM) Est GFR (CKD-EPI)NonAf (>60 ml/min/1.73 sqM) Glucose (74-99) mg/dL Calcium (8.4-10.2) mg/dL Total Bilirubin (0.2-1.3) mg/dL AST (17-59) U/L ALT (4-49) U/L Alkaline Phosphatase (38-126) U/L Troponin I (0.000-0.034) ng/mL NT-Pro-B Natriuret Pep 1920 pg/mL Total Protein (6.3-8.2) g/dL Albumin (3.5-5.0) g/dL TSH 3.580 (0.465-4.680) mIU/L Coronavirus (PCR) Not Detected (Not Detectd) 04/30/21 04/30/21 Range/Units 21:37 22:06 WBC (3.8-10.6) k/uL RBC (4.30-5.90) m/uL Hgb (13.0-17.5) gm/dL Hct (39.0-53.0) % MCV (80.0-100.0) fL MCH (25.0-35.0) pg MCHC (31.0-37.0) g/dL RDW (11.5-15.5) % Plt Count (150-450) k/uL MPV Neutrophils % (Manual) % Lymphocytes % (Manual) % Monocytes % (Manual) % Eosinophils % (Manual) % Neutrophils # (Manual) (1.3-7.7) k/uL Lymphocytes # (Manual) (1.0-4.8) k/uL Monocytes # (Manual) (0-1.0) k/uL Eosinophils # (Manual) (0-0.7) k/uL Nucleated RBCs (0-0) /100 WBC Manual Slide Review Polychromasia Hypochromasia PT 15.6 H (9.0-12.0) sec INR 1.5 H (<1.2) APTT 31.7 H (22.0-30.0) sec Sodium 134 L (137-145) mmol/L Potassium 6.2 H* (3.5-5.1) mmol/L Chloride 97 L (98-107) mmol/L Carbon Dioxide 24 (22-30) mmol/L Anion Gap 13 mmol/L BUN 61 H (9-20) mg/dL Creatinine 2.46 H (0.66-1.25) mg/dL Est GFR (CKD-EPI)AfAm 27 (>60 ml/min/1.73 sqM) Est GFR (CKD-EPI)NonAf 24 (>60 ml/min/1.73 sqM) Glucose 81 (74-99) mg/dL Calcium 9.0 (8.4-10.2) mg/dL Total Bilirubin (0.2-1.3) mg/dL AST (17-59) U/L ALT (4-49) U/L Alkaline Phosphatase (38-126) U/L Troponin I (0.000-0.034) ng/mL NT-Pro-B Natriuret Pep pg/mL Total Protein (6.3-8.2) g/dL Albumin (3.5-5.0) g/dL TSH (0.465-4.680) mIU/L Coronavirus (PCR) (Not Detectd) Critical Care Time Critical Care Time: Yes Total Critical Care Time: 35 Disposition Clinical Impression: Cerebrovascular accident, Diastolic CHF, acute on chronic, Cardiogenic shock Disposition: ADMITTED IP TO THIS [facility] Condition: Serious Is patient prescribed a controlled substance at d/c from ED?: No
--- NOTE | 2021-04-30 22:19 | XR ---
EXAMINATION TYPE: XR chest 1V portable DATE OF EXAM: 04/30/2021 COMPARISON: 01/18/2020 HISTORY: Weakness TECHNIQUE: Single view FINDINGS: Heart is enlarged. There is pulmonary edema. There is blunting of the right costophrenic an gle. There are chest leads. IMPRESSION: Congestive heart failure with right pleural effusion. Heart failure and pleural fluid elizabeth ear essentially new compared to the old exam.
[2021-04-30 22:52] LABS: INR 1.5 (<1.2); Partial Thromboplastin Time 31.7 sec (22.0-30.0); Prothrombin Time 15.6 sec (9.0-12.0)
[2021-04-30] MEDS ORDERED: ACETAMINOPHEN TAB 325 MG TAB PO PRN (22:55)
[2021-04-30] MEDS ORDERED: NALOXONE 0.4 MG/ML 1 ML VIAL IV PRN (22:55)
[2021-05-01] MEDS ORDERED: IPRATROPIUM-ALBUTEROL 3 ML NEB INHALATION ONE
[2021-05-01 03:42] LABS: Potassium 6.2 mmol/L (3.5-5.1)
[2021-05-01 03:59] LABS: Glucose,Whole Blood 75 mg/dL (75-99)
[2021-05-01] MEDS ORDERED: DEXTROSE 50% SYRINGE 50 ML IVP ONE ×3 (04:14→19:09)
[2021-05-01 04:25] LABS: Calcium 9.2 mg/dL (8.4-10.2); Potassium 6.2 mmol/L (3.5-5.1)
[2021-05-01 05:14] LABS: Glucose,Whole Blood 129 mg/dL (75-99)
[2021-05-01] MEDS: NOREPINEPHRINE 4 MG in SODIUM CHLORIDE 0.9% 250 ML IV ONE ×2 (05:15→10:06)
[2021-05-01 05:44] LABS: Albumin 3.9 g/dL (3.5-5.0); Calcium 9.2 mg/dL (8.4-10.2); Magnesium 2.9 mg/dL (1.6-2.3); Total Bilirubin 2.7 mg/dL (0.2-1.3); Total Protein 6.8 g/dL (6.3-8.2)
[2021-05-01 05:47] LABS: HGB 17.8 gm/dL (13.0-17.5); Hypochromasia Marked; MCH 30.8 pg (25.0-35.0); MCHC 30.9 g/dL (31.0-37.0); MCV 99.7 fL (80.0-100.0); Macrocytosis Slight; Platelet Count 116 k/uL (150-450); RBC 5.78 m/uL (4.30-5.90); RDW 15.5 % (11.5-15.5); WBC 7.9 k/uL (3.8-10.6)
[2021-05-01 05:48] LABS: Potassium 6.8 mmol/L (3.5-5.1)
[2021-05-01 05:50] LABS: HCT 57.7 % (39.0-53.0)
[2021-05-01] MEDS ORDERED: CALCIUM GLUCONATE 1 GM in SODIUM CHLORIDE 0.9% 100 ML IVPB ONE ×4 (06:00→11:32)
[2021-05-01] MEDS ORDERED: INSULIN REGULAR 100 UNIT/ML VIAL (IV) IV ONE ×2 (06:00→11:30)
[2021-05-01 06:25] LABS: Amorphous Sediment,Urine Rare /hpf; Appearance,Urine Cloudy (Clear); Bacteria,Urine Rare /hpf; Bilirubin,Urine Negative (Negative); Blood,Urine Negative (Negative); Color,Urine Yellow; Glucose,Urine (UA) Negative (Negative); Hyaline Casts,Urine 304 /lpf (0-2); Ketones,Urine Negative (Negative); Leukocyte Esterase,Urine Negative (Negative); Mucus,Urine Rare /hpf; Nitrite,Urine Negative (Negative); Protein,Urine 1+ (Negative); RBC,Urine 13 /hpf (0-5); Squamous Epithelial Cell,Urine 2 /hpf (0-4); WBC,Urine 6 /hpf (0-5)
[2021-05-01 06:26] LABS: Specific Gravity,Urine 1.046 (1.001-1.035)
[2021-05-01 07:17] LABS: Lymphocytes # (M) 0.47 k/uL (1.0-4.8); Monocytes # (M) 1.19 k/uL (0-1.0); Neutrophils # (M) 6.24 k/uL (1.3-7.7); Neutrophils % (M) 79 %; Nucleated Red Blood Cells 0 /100 WBC (0-0); Total Cells Counted 100
[2021-05-01] MEDS: IPRATROPIUM-ALBUTEROL 3 ML NEB INHALATION SCH ×4 (07:38→20:36)
--- NOTE | 2021-05-01 09:25 | US ---
EXAMINATION TYPE: US carotid duplex BILAT DATE OF EXAM: 05/01/2021 COMPARISON: CTA neck from yesterday CLINICAL HISTORY: cva. abn CTA, patient would did not respond to questioning, has oxygen mask and dif ficulty in rotating neck EXAM MEASUREMENTS: RIGHT: Peak Systolic Velocity (PSV) cm/sec ----- Right CCA: 137 ----- Right ICA: 88.6 ----- Right ECA: 152.0 ICA/CCA ratio: 0.6 RIGHT: End Diastole cm/sec ----- Right CCA: 30.8 ----- Right ICA: 33.5 ----- Right ECA: 16.4 LEFT: Peak Systolic Velocity (PSV) cm/sec ----- Left CCA: 93.5 ----- Left ICA: 77.6 ----- Left ECA: 112.0 ICA/CCA ratio: 0.8 LEFT: End Diastole cm/sec ----- Left CCA: 25.2 ----- Left ICA: 0.0 ----- Left ECA: 112.0 VERTEBRALS (direction of flow): Right Vertebral: Antegrade Left Vertebral: unable to discern, patient could not roll neck Rhythm: Normal Lopez scale images show moderate peripheral shadowing plaque bilateral carotid bulb level. Velocity me asurements and ratios remain within normal limits and visualized portion of the internal carotid cari ad. IMPRESSION: Suboptimal study without hemodynamically significant stenosis clearly seen in either int ernal carotid artery. Criteria for Assigning % of Stenosis / Diameter reduction (Estimation based on the indirect measurements of the internal carotid artery velocities (ICA PSV). 1. Normal (no stenosis)=ICA PSV < 125 cm/s: ratio < 2.0: ICA EDV<40 cm/s. 2. Less than 50% stenosis=ICA PSV < 125 cm/s: ratio < 2.0: ICA EDV<40 cm/s. 3. 50 to 69% stenosis=ICA PSV of 125 to 230 cm/s: ration 2.0 ? 4.0: ICA EDV 40-100 cm/s. 4. Greater than 70% stenosis to near occlusion= ICA PSV > 230 cm/s: ratio > 4.0: ICA EDV > 100 cm/s. 5. Near occlusion= ICA PSV velocities may be low or undetectable: variable ratio and ICA EDV. 6. Total occlusion=unable to detect flow.
[2021-05-01] MEDS: PANTOPRAZOLE 40 MG/10 ML VIAL IV SCH (09:42)
--- NOTE | 2021-05-01 10:15 | P.CNPUL ---
History of Present Illness Consult date: 05/01/21 Requesting physician: Evan Mary Reason for consult: hypoxemia, abnormal CXR/CT, other (Critical care management) Chief complaint: Generalized weakness, slurred speech History of present illness: This is an 81-year-old male patient with a known history of congestive heart failure, CVA/TIA, hypertension, hyperlipidemia, chronic atrial fibrillation anticoagulated with Eliquis, epilepsy maintained on Keppra, previous ventilatory dependent respiratory failure secondary to CHF. He was brought into the emergency room by EMS yesterday with generalized weakness and slurred speech. Initially a code stroke was called. Computed tomography scan of the brain did not reveal any acute abnormalities. CT angiogram of the head and neck revealed no evidence of intracranial hemodynamic stenosis. His NIH score was 2. Carotid Dopplers were suboptimal but no hemodynamically significant stenosis noted. He was felt to be more in a cardiogenic shock state. X-ray revealed significant pulmonary edema. Blunting of the right costophrenic angle. Congestive heart failure with a right pleural effusion. EKG revealed atrial fibrillation with a right bundle-branch block. Review his echocardiogram revealed preserved left ventricular systolic function. There is noted moderate to severe aortic stenosi s. He was placed on BiPAP currently 14/7 and 80% FiO2 with O2 saturations in the mid 90s. He does have chronic edema and vascular changes of the lower extremities. He is arousable. White count 7.9. Hemoglobin 17.8. Sodium 135. Potassium 6.8. BUN 60. Creatinine 2.45. Glucose 63. Troponin 0.045. AST 117. ALT 52. Review of Systems REVIEW OF SYSTEMS: CONSTITUTIONAL: Generalized weakness. Denies any recent significant weight loss or weight gain. EYES: Denies change in vision. EARS, NOSE, MOUTH, THROAT: Denies headaches, denies sore throat. CARDIOVASCULAR: Denies chest pain, palpitations or syncopal episodes. RESPIRATORY: Positive for shortness of breath, cough, congestion no hemoptysis. GASTROINTESTINAL: Denies change in appetite, denies abdominal pain GENITOURINARY: Denies hematuria, denies infections. MUSKULOSKELETAL: Denies pain, denies swelling. INTEGUMENTARY: Denies rash, denies eczema. NEUROLOGICAL: Denies recent memory loss, no recent seizure activity. PSYCHIATRIC: Denies anxiety, denies depression. HEMATOLOGIC/LYMPHATIC: Denies anemia, denies enlarged lymph nodes. 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 Pelvic fracture. History of Any Multi-Drug Resistant Organisms: None Reported Additional Past Surgical History / Comment(s): colonoscopy x3, Past Anesthesia/Blood Transfusion Reactions: No Reported Reaction Past Psychological History: No Psychological Hx Reported Smoking Status: Former smoker Past Alcohol Use History: None Reported Past Drug Use History: None Reported - Past Family History Sister(s) Family Medical History: Diabetes Mellitus, Myocardial Infarction ([place]) Additional Family Medical History / Comment(s): sister from an [place] Mother Family Medical History: No Reported History Additional Family Medical History / Comment(s): multiple sclerosis Son(s) Family Medical History: Hypertension Father Additional Family Medical History / Comment(s): ETOH abuse Medications and Allergies Home Medications Medication Instructions Recorded Confirmed Type Cholecalciferol [Vitamin D3 (25 25 mcg PO DAILY 11/05/15 04/30/21 History Mcg = 1000 Iu)] Multivitamins, Thera [Multivitamin 1 tab PO DAILY 11/05/15 04/30/21 History (formulary)] Apixaban [Eliquis] 5 mg PO BID 01/21/20 04/30/21 History Atorvastatin [Lipitor] 20 mg PO HS 01/21/20 04/30/21 History Furosemide [Lasix] 40 mg PO DAILY 01/21/20 04/30/21 History Metoprolol Tartrate [Lopressor] 25 mg PO BID 01/21/20 04/30/21 History Spironolactone [Aldactone] 25 mg PO BID 01/21/20 04/30/21 History levETIRAcetam [Keppra] 500 mg PO BID 01/21/20 04/30/21 History SILVER sulfADIAZINE Cream 1 applic TOPICAL BID PRN 04/30/21 04/30/21 History [Silvadene 1% Cream] Allergies Allergy/AdvReac Type Severity Reaction Status Date / Time No Known Allergies Allergy Verified 04/30/21 22:18 Physical Exam Vitals: Vital Signs Temp Pulse Resp BP Pulse Ox 05/01/21 09:30 86 26 H 111/85 96 05/01/21 09:15 82 24 115/81 98 05/01/21 09:00 72 26 H 73/63 96 05/01/21 08:45 83 29 H 103/68 97 05/01/21 08:30 81 19 111/91 96 05/01/21 08:15 96 19 116/85 96 05/01/21 08:00 96.8 F L 81 26 H 108/70 97 05/01/21 07:48 79 20 05/01/21 07:45 84 24 122/83 96 05/01/21 07:39 80 17 05/01/21 07:30 86 19 117/84 97 05/01/21 07:15 85 23 108/76 96 05/01/21 07:00 95 26 H 116/77 95 05/01/21 06:45 101 H 27 H 112/81 97 05/01/21 06:30 90 26 H 112/81 96 05/01/21 06:15 85 26 H 129/86 96 05/01/21 06:00 88 22 122/87 97 05/01/21 05:45 88 20 122/87 96 05/01/21 05:30 83 30 H 122/98 97 05/01/21 05:15 84 21 137/91 96 05/01/21 05:00 90 15 137/91 94 L 05/01/21 04:45 87 27 H 124/85 96 05/01/21 04:30 85 22 125/98 97 05/01/21 04:20 80 15 125/98 99 05/01/21 04:10 82 21 80/31 05/01/21 04:00 96.3 F L 85 27 H 78/56 96 05/01/21 03:50 95.6 F L 82 20 99/60 97 05/01/21 03:49 84 25 H 04/30/21 23:40 84 04/30/21 23:30 80 04/30/21 23:10 93.5 F L 81 29 H 106/83 74 L 04/30/21 23:00 81 26 H 106/83 78 L 04/30/21 22:45 87 24 79/68 84 L 04/30/21 22:30 86 25 H 87/50 85 L 04/30/21 22:15 78 26 H 107/96 88 L 04/30/21 22:00 78 29 H 74/21 87 L 04/30/21 21:45 73 29 H 70/21 87 L 04/30/21 21:30 78 30 H 105/47 89 L 04/30/21 21:15 79 27 H 94/84 86 L 04/30/21 21:00 71 26 H 108/81 90 L 04/30/21 20:45 93 27 H 110/28 86 L 04/30/21 20:39 94 F L 04/30/21 20:30 79 29 H 84/70 92 L 04/30/21 20:15 79 30 H 97/79 85 L 04/30/21 20:08 84 16 93/34 84 L Intake and Output 04/30/21 05/01/21 05/01/21 22:59 06:59 14:59 Intake Total 15.563 298.437 60 Output Total 120 75 Balance 15.563 178.437 -15 Intake: IV 60 60 0.9 kvo 60 60 Intake, IV Titration 15.563 238.437 Amount Norepinephrine 4 mg In 15.563 238.437 Sodium Chloride 0.9% 250 ml @ 0.05 MCG/KG/MIN 18. 751 mls/hr IV .[id number] ONE Rx#:[id number] Output: Urine 120 75 Other: Voiding Method Indwelling Catheter Weight 98.43 kg 98.43 kg GENERAL EXAM: Alert, 81-year-old male patient, on BiPAP 14/7 and 80% FiO2, fairly comfortable in no apparent distress. HEAD: Normocephalic. EYES: Normal reaction of pupils, equal size. NOSE: Clear with pink turbinates. THROAT: No erythema or exudates. NECK: No masses, no JVD. CHEST: No chest wall deformity. LUNGS: Equal air entry with crackles in the bilateral bases. CVS: S1 and S2 normal with an audible murmur, irregular rhythm. ABDOMEN: No hepatosplenomegaly, normal bowel sounds, no guarding or rigidity. SPINE: No scoliosis or deformity SKIN: No rashes CENTRAL NERVOUS SYSTEM: No focal deficits, tone is normal in all 4 extremities. EXTREMITIES: Changes of chronic venous stasis. There is 1+ peripheral edema. No clubbing, no cyanosis. Peripheral pulses are intact. Results - Laboratory Findings CBC and BMP: 05/01/21 03:56 05/01/21 03:56 PT/INR, D-dimer PT 15.6 sec (9.0-12.0) H 04/30/21 22:06 INR 1.5 (<1.2) H 04/30/21 22:06 Abnormal lab findings: Abnormal Labs 04/30/21 04/30/21 04/30/21 20:34 20:34 20:34 Hgb Hct 55.5 H MCHC Plt Count 101 L Lymphocytes # (Manual) 0.30 L Monocytes # (Manual) PT INR APTT Sodium 133 L Potassium 6.3 H* Chloride 96 L Carbon Dioxide BUN 61 H Creatinine 2.41 H Glucose POC Glucose (mg/dL) Magnesium Total Bilirubin 2.6 H AST 92 H ALT Troponin I 0.042 H* Ur Specific [place] Urine Protein Urine RBC Urine WBC Amorphous Sediment Urine Bacteria Hyaline Casts Urine Mucus 04/30/21 04/30/21 05/01/21 21:37 22:06 00:01 Hgb Hct MCHC Plt Count Lymphocytes # (Manual) Monocytes # (Manual) PT 15.6 H INR 1.5 H APTT 31.7 H Sodium 134 L 135 L Potassium 6.2 H* 6.2 H* Chloride 97 L 97 L Carbon Dioxide BUN 61 H 59 H Creatinine 2.46 H 2.45 H Glucose 71 L POC Glucose (mg/dL) Magnesium Total Bilirubin AST ALT Troponin I Ur Specific [place] Urine Protein Urine RBC Urine WBC Amorphous Sediment Urine Bacteria Hyaline Casts Urine Mucus 05/01/21 05/01/21 05/01/21 03:56 03:56 03:56 Hgb 17.8 H Hct 57.7 H* MCHC 30.9 L Plt Count 116 L Lymphocytes # (Manual) 0.47 L Monocytes # (Manual) 1.19 H PT INR APTT Sodium 135 L Potassium 6.8 H* Chloride Carbon Dioxide 20 L BUN 60 H Creatinine 2.45 H Glucose 63 L POC Glucose (mg/dL) Magnesium 2.9 H Total Bilirubin 2.7 H AST 117 H ALT 52 H Troponin I 0.045 H* Ur Specific [place] Urine Protein Urine RBC Urine WBC Amorphous Sediment Urine Bacteria Hyaline Casts Urine Mucus 05/01/21 05/01/21 04:26 05:12 Hgb Hct MCHC Plt Count Lymphocytes # (Manual) Monocytes # (Manual) PT INR APTT Sodium Potassium Chloride Carbon Dioxide BUN Creatinine Glucose POC Glucose (mg/dL) 129 H Magnesium Total Bilirubin AST ALT Troponin I Ur Specific [place] 1.046 H Urine Protein 1+ H Urine RBC 13 H Urine WBC 6 H Amorphous Sediment Rare H Urine Bacteria Rare H Hyaline Casts 304 H Urine Mucus Rare H - Diagnostic Findings Chest x-ray: image reviewed Assessment and Plan Assessment: 1 Acute hypoxemic respiratory failure secondary to an acute exacerbation of suspected diastolic congestive heart failure. Previous echocardiogram revealed preserved left ventricular systolic function 2 Acute cardiogenic shock secondary to diastolic congestive heart failure 3 Acute renal failure secondary to above 4 Acute hyperkalemia secondary to above 5 Troponin leak 6 Moderate to severe aortic stenosis 7 Chronic atrial fibrillation, anticoagulants with Eliquis 8 History of diastolic congestive heart failure 9 History of chronic lower extremity edema with changes of chronic venous stasis 10 History of epilepsy following a CVA, maintained on Keppra 11 History of CVA 12 History of hypertension 13 Hyperlipidemia 14 History of prostate cancer status post radiation Plan: The patient was seen and evaluated Chest x-ray and labs reviewed Hyperkalemia treated Lasix [address] Duque did speak with the patient's family To remain a full code at this point Titrate the norepinephrine as tolerated Titrate the FiO2 as tolerated Follow-up chest x-ray and labs in the a.m. We will continue to follow and make further recommendations based on his clinical status I, the cosigning physician, performed a history & physical examination of the patient. Lungs sounds with crackles in the bilateral bases. Maintaining O2 saturations in the 90s on 80% FiO2 via BiPAP at 14/7. I discussed the assessment and plan of care with my nurse practitioner, Chelle Becerra. I attest to the above consultation as dictated by her. Time with Patient: Greater than 30
[2021-05-01] MEDS ORDERED: FUROSEMIDE 10 MG/ML 4 ML VIAL IV STA (10:16)
[2021-05-01] MEDS ORDERED: DEXTROSE 50% SYRINGE 50 ML IVP STA ×2 (11:31→23:49)
[2021-05-01] MEDS: SODIUM ZIRCONIUM CYCLOSILICATE 10 GM PACKET PO ONE (12:00)
[2021-05-01] MEDS ORDERED: LIDOCAINE 1% INJ 10MG/ML (20 ML MDV) SQ ONE (12:56)
--- NOTE | 2021-05-01 13:31 | ECHOF ---
Referral Reason:chf MEASUREMENTS -------- HEIGHT: 175.3 cm WEIGHT: 98.4 kg BP: 122/87 RVIDd: 3.4 cm (< 3.3) IVSd: 1.5 cm (0.6 - 1.1) LVIDd: 3.6 cm (3.9 - 5.3) LVPWd: 1.4 cm (0.6 - 1.1) IVSs: 2.1 cm LVIDs: 2.8 cm LVPWs: 2.1 cm LA Diam: 5.8 cm (2.7 - 3.8) Ao Diam: 3.5 cm (2.0 - 3.7) MV EXCURSION: 23.254 mm (> 18.000) MV EF SLOPE: 93 mm/s (70 - 150) EPSS: 0.9 cm AV maxP.06 mmHg AV meanP.29 mmHg AR PHT: 516 ms RAP: 15.00 mmHg RVSP: 34.94 mmHg FINDINGS -------- Atrial fibrillation. This was a technically adequate study. The left ventricular size is normal. There is moderate concentric left ventricular hypertrophy. O verall left ventricular systolic function is low-normal with, an EF between 50 - 55 %. The right ventricle is mildly enlarged. The left atrium is markedly dilated. The right atrium is normal in size. The right atrial size is normal. Interatrial and interventricular septum intact. There is moderate to severe aortic valve sclerosis. There is mild aortic regurgitation. There is zfccseqg-bo-qmaqjo aortic stenosis present. Peak/mean gradient across the Aortic Valve is 38.06mmHg / 19.29mmHg. Moderate mitral annular calcification present. Cxkl-zr-gqmrzwzl mitral regurgitation is present. The tricuspid valve appears structurally normal. Moderate tricuspid regurgitation present. There is mild pulmonary hypertension. The right ventricular systolic pressure, as measured by Doppler, is 34.94mmHg. Trace/mild (physiologic) pulmonic regurgitation. The aortic root size is normal. The inferior vena cava is dilated with no significant inspiratory collapse which is consistent estima martine right atrial pressure of >15 mmHg. There is no pericardial effusion. CONCLUSIONS -------- 1. There is moderate concentric left ventricular hypertrophy. 2. Overall left ventricular systolic function is low-normal with, an EF between 50 - 55 %. 3. The right ventricle is mildly enlarged. 4. The left atrium is markedly dilated. 5. There is mild aortic regurgitation. 6. There is akctysul-yi-iwqwel aortic stenosis present. 7. Peak/mean gradient across the Aortic Valve is 38.06mmHg / 19.29mmHg. 8. Moderate mitral annular calcification present. 9. Qhdg-kk-zrovtleg mitral regurgitation is present. 10. Moderate tricuspid regurgitation present. 11. There is mild pulmonary hypertension. 12. Trace/mild (physiologic) pulmonic regurgitation. 13. The inferior vena cava is dilated with no significant inspiratory collapse which is consistent es timated right atrial pressure of >15 mmHg. 14. There is no pericardial effusion. MATE FISHING VESSEL: Ai Loza RDCS
--- NOTE | 2021-05-01 13:41 | XR ---
EXAMINATION TYPE: XR chest 1V confirm line [facility] DATE OF EXAM: 05/01/2021 CLINICAL HISTORY: PICC line placement. TECHNIQUE: Single AP portable upright view of the chest is obtained. COMPARISON: Chest x-ray from one day earlier FINDINGS: New right-sided PICC line ascends outside field of view. Persistent marked cardiomegaly with central vascular congestion and bibasilar opacities along with sm all right pleural effusion. Osseous structures are demineralized. IMPRESSION: As above
--- NOTE | 2021-05-01 13:43 | XR ---
EXAMINATION TYPE: XR chest 1V confirm line [facility] DATE OF EXAM: 05/01/2021 CLINICAL HISTORY: PICC line repositioning TECHNIQUE: Single AP portable semiupright view of the chest is obtained. COMPARISON: Chest x-ray from earlier today FINDINGS: PICC line retracted now terminates near level of brachiocephalic confluence. Persistent cardiomegaly with central increased markings and bibasilar opacities partially imaged. Rig ht lung base is not entirely included. Osseous structures are demineralized. IMPRESSION: As above.
--- NOTE | 2021-05-01 13:46 | IR ---
PICC LINE PLACEMENT: HISTORY: Infection requiring long-term antibiotic therapy PROCEDURE: Ultrasound guidance of PICC line placement. COMPLICATIONS: None ANESTHESIA: 1. 1% Lidocaine locally. FINDINGS/TECHNIQUE: The procedure was explained to the patient. The risks, complications, benefits and alternatives were discussed and any questions were answered. Informed consent was obtained. The patient was placed supine on the fluoroscopic table and prepped and draped in the usual sterile fash ion. Utilizing a 21 gauge needle and sonographic guidance, access in the right basilic vein was ach ieved and there is placement of a 0.018 guidewire. The vein is patent. A 5-F. sheath was placed ove r the guidewire. The guidewire and dilator were removed and a 5-F. Double lumen PICC line was placed through the sheath with the chest x-ray confirming the tip at the level of the SVC. The sheath was removed, the catheter was flushed and sutured into position. The patient was stable throughout the p rocedure and remained stable upon discharge from the Department of Radiology. The vein puncture was patent under ultrasound. A perez scale image was obtained to document patency of the vein punctured. All elements of the maximal barrier technique were utilized. IMPRESSION: 1. Successful PICC line placement under ultrasound performed bedside within the ICU.
--- NOTE | 2021-05-01 13:50 | XR ---
EXAMINATION TYPE: XR chest 1V confirm line [facility] DATE OF EXAM: 05/01/2021 COMPARISON: 05/01/2021 HISTORY: PICC line placement TECHNIQUE: Single frontal view of the chest is obtained. FINDINGS: PICC line now appears in good position. There is bilateral infiltrate and pleural effusion with cardiomegaly. Atherosclerotic change of the aorta. Diffuse interstitial pattern. No pneumothora x. Diffuse osteopenia. Hypertrophic and degenerative change of the spine. Chronic rib deformity sugge sted on the left. IMPRESSION: 1. Cardiac megaly diffuse pleural-parenchymal changes correlate for CHF versus diffuse pneumonia.
--- NOTE | 2021-05-01 14:46 | P.CRDCN ---
History of Present Illness Consult date: 05/01/21 History of present illness: This is a 81-year-old gentleman with history of diastolic CHF, previous CVA, hypertension, hyperlipidemia and also chronic atrial fibrillation was brought to the hospital with complaints of rather abrupt onset of weakness and slurred speech with a suspicion for CVA. Initially "stroke was initiated. Apparently patient was hypotensive on arrival. Computed tomography scan of the brain did not reveal any acute abnormalities. CT angiogram the head and neck revealed no evidence of intracranial hemodynamics stenosis. His NIH score was 2. Carotid duplex study was suboptimal but no Sigmund stenosis noted. A chest x-ray showed evidence of CHF and possible bibasilar infiltrates. His echocardiogram showed preserved LV function with evidence of possible moderate to severe aortic stenosis. The echocardiographic studies done over the last several years have shown varying gradient across the aortic valve. Patient's creatinine was high, computed to the previous admissions size to acute renal failure associated with hyperkalemia. Patient was on Lasix 40 mg and also Aldactone 25 mg by mouth twice a day at home. His potassium is high. His urine output has been low. Patient has been hypotensive and has been on Levophed. Patient also on anticoagulation therapy at home. Patient is awake and responds to verbal stimuli. His BUN is 60, creatinine is 2.45. Renal consult is initiated. The picture could be consistent with a diastolic CHF though concomitant pneumonia and sepsis cannot be excluded. I will initiate on IV Lasix drip and await further recommendations of the solar installer pv. Hold off Aldactone. His troponin values are mildly elevated but not consistent with acute myocardial injury pattern. His EKG showed atrial fibrillation with a right bundle-branch block without any acute changes. 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 Pelvic fracture. History of Any Multi-Drug Resistant Organisms: None Reported Additional Past Surgical History / Comment(s): colonoscopy x3, Past Anesthesia/Blood Transfusion Reactions: No Reported Reaction Past Psychological History: No Psychological Hx Reported Smoking Status: Former smoker Past Alcohol Use History: None Reported Past Drug Use History: None Reported - Past Family History Sister(s) Family Medical History: Diabetes Mellitus, Myocardial Infarction ([place]) Additional Family Medical History / Comment(s): sister from an [place] Mother Family Medical History: No Reported History Additional Family Medical History / Comment(s): multiple sclerosis Son(s) Family Medical History: Hypertension Father Additional Family Medical History / Comment(s): ETOH abuse Medications and Allergies Home Medications Medication Instructions Recorded Confirmed Type Cholecalciferol [Vitamin D3 (25 25 mcg PO DAILY 11/05/15 04/30/21 History Mcg = 1000 Iu)] Multivitamins, Thera [Multivitamin 1 tab PO DAILY 11/05/15 04/30/21 History (formulary)] Apixaban [Eliquis] 5 mg PO BID 01/21/20 04/30/21 History Atorvastatin [Lipitor] 20 mg PO HS 01/21/20 04/30/21 History Furosemide [Lasix] 40 mg PO DAILY 01/21/20 04/30/21 History Metoprolol Tartrate [Lopressor] 25 mg PO BID 01/21/20 04/30/21 History Spironolactone [Aldactone] 25 mg PO BID 01/21/20 04/30/21 History levETIRAcetam [Keppra] 500 mg PO BID 01/21/20 04/30/21 History SILVER sulfADIAZINE Cream 1 applic TOPICAL BID PRN 04/30/21 04/30/21 History [Silvadene 1% Cream] Allergies Allergy/AdvReac Type Severity Reaction Status Date / Time No Known Allergies Allergy Verified 04/30/21 22:18 Physical Exam Vitals: Vital Signs Temp Pulse Resp BP Pulse Ox 05/01/21 14:30 86 18 103/63 96 05/01/21 14:15 87 18 100/71 94 L 05/01/21 14:00 96.2 F L 78 21 98/74 97 05/01/21 13:45 82 19 111/77 99 05/01/21 13:30 78 14 106/67 99 05/01/21 13:15 92 16 115/85 05/01/21 13:00 82 23 119/79 96 05/01/21 12:45 98 15 114/83 97 05/01/21 12:30 96 17 100/77 99 05/01/21 12:15 98 21 101/83 98 05/01/21 12:00 98.2 F 94 17 101/73 94 L 05/01/21 11:45 93 23 109/80 96 05/01/21 11:30 96 22 111/80 93 L 05/01/21 11:27 96 23 05/01/21 11:20 95 20 05/01/21 11:15 96 25 H 115/72 96 05/01/21 11:00 98.2 F 94 20 112/78 95 05/01/21 10:45 98.1 F 98 19 112/87 94 L 05/01/21 10:30 98 24 103/74 95 05/01/21 10:15 92 25 H 101/73 95 05/01/21 10:00 98 22 118/82 96 05/01/21 09:45 99 29 H 114/68 97 05/01/21 09:30 86 26 H 111/85 96 05/01/21 09:15 82 24 115/81 98 05/01/21 09:00 72 26 H 73/63 96 05/01/21 08:45 83 29 H 103/68 97 05/01/21 08:30 81 19 111/91 96 05/01/21 08:15 96 19 116/85 96 05/01/21 08:00 96.8 F L 81 26 H 108/70 97 05/01/21 07:48 79 20 05/01/21 07:45 84 24 122/83 96 05/01/21 07:39 80 17 05/01/21 07:30 86 19 117/84 97 05/01/21 07:15 85 23 108/76 96 05/01/21 07:00 95 26 H 116/77 95 05/01/21 06:45 101 H 27 H 112/81 97 05/01/21 06:30 90 26 H 112/81 96 05/01/21 06:15 85 26 H 129/86 96 05/01/21 06:00 88 22 122/87 97 05/01/21 05:45 88 20 122/87 96 05/01/21 05:30 83 30 H 122/98 97 05/01/21 05:15 84 21 137/91 96 05/01/21 05:00 90 15 137/91 94 L 05/01/21 04:45 87 27 H 124/85 96 05/01/21 04:30 85 22 125/98 97 05/01/21 04:20 80 15 125/98 99 05/01/21 04:10 82 21 80/31 05/01/21 04:00 96.3 F L 85 27 H 78/56 96 05/01/21 03:50 95.6 F L 82 20 99/60 97 05/01/21 03:49 84 25 H 04/30/21 23:40 84 04/30/21 23:30 80 04/30/21 23:10 93.5 F L 81 29 H 106/83 74 L 04/30/21 23:00 81 26 H 106/83 78 L 04/30/21 22:45 87 24 79/68 84 L 04/30/21 22:30 86 25 H 87/50 85 L 04/30/21 22:15 78 26 H 107/96 88 L 04/30/21 22:00 78 29 H 74/21 87 L 04/30/21 21:45 73 29 H 70/21 87 L 04/30/21 21:30 78 30 H 105/47 89 L 04/30/21 21:15 79 27 H 94/84 86 L 04/30/21 21:00 71 26 H 108/81 90 L 04/30/21 20:45 93 27 H 110/28 86 L 04/30/21 20:39 94 F L 04/30/21 20:30 79 29 H 84/70 92 L 04/30/21 20:15 79 30 H 97/79 85 L 04/30/21 20:08 84 16 93/34 84 L Intake and Output 04/30/21 05/01/21 05/01/21 22:59 06:59 14:59 Intake Total 15.563 298.437 477.128 Output Total 120 245 Balance 15.563 178.437 232.128 Intake: IV 60 160 0.9 kvo 60 160 Intake, IV Titration 15.563 238.437 317.128 Amount Norepinephrine 4 mg In 15.563 238.437 317.128 Sodium Chloride 0.9% 250 ml @ 0.05 MCG/KG/MIN 18. 751 mls/hr IV .[id number] ONE Rx#:[id number] Output: Urine 120 245 Other: Voiding Method Indwelling Catheter # Bowel Movements 1 Weight 98.43 kg 98.43 kg GENERAL EXAM: Patient is awake and responds to verbal stimuli HEENT: Normocephalic. NECK: No masses, no nuchal rigidity. CHEST: No chest wall deformity. LUNGS: Diminished air exchange HEART: Irregular heart sounds with systolic murmur ABDOMEN: Soft SKIN: No rashes CENTRAL NERVOUS SYSTEM: No focal deficits. EXTREMITIES: Chronic changes Results 05/01/21 03:56 05/01/21 09:33 Cardiac Enzymes 04/30/21 04/30/21 05/01/21 Range/Units 20:34 20:34 03:56 AST 92 H (17-59) U/L Troponin I 0.042 H* 0.045 H* (0.000-0.034) ng/mL 05/01/21 Range/Units 03:56 AST 117 H (17-59) U/L Troponin I (0.000-0.034) ng/mL Coagulation 04/30/21 Range/Units 22:06 PT 15.6 H (9.0-12.0) sec APTT 31.7 H (22.0-30.0) sec CBC 04/30/21 05/01/21 Range/Units 20:34 03:56 WBC 6.0 7.9 (3.8-10.6) k/uL RBC 5.67 5.78 (4.30-5.90) m/uL Hgb 17.3 17.8 H (13.0-17.5) gm/dL Hct 55.5 H 57.7 H* (39.0-53.0) % Plt Count 101 L 116 L (150-450) k/uL Comprehensive Metabolic Panel 04/30/21 04/30/21 05/01/21 Range/Units 20:34 21:37 00:01 Sodium 133 L 134 L 135 L (137-145) mmol/L Potassium 6.3 H* 6.2 H* 6.2 H* (3.5-5.1) mmol/L Chloride 96 L 97 L 97 L (98-107) mmol/L Carbon Dioxide 24 24 24 (22-30) mmol/L BUN 61 H 61 H 59 H (9-20) mg/dL Creatinine 2.41 H 2.46 H 2.45 H (0.66-1.25) mg/dL Glucose 89 81 71 L (74-99) mg/dL Calcium 9.2 9.0 9.2 (8.4-10.2) mg/dL AST 92 H (17-59) U/L ALT 40 (4-49) U/L Alkaline Phosphatase 82 (38-126) U/L Total Protein 6.7 (6.3-8.2) g/dL Albumin 3.8 (3.5-5.0) g/dL 05/01/21 05/01/21 Range/Units 03:56 09:33 Sodium 135 L (137-145) mmol/L Potassium 6.8 H* 6.1 H* (3.5-5.1) mmol/L Chloride 100 (98-107) mmol/L Carbon Dioxide 20 L (22-30) mmol/L BUN 60 H (9-20) mg/dL Creatinine 2.45 H (0.66-1.25) mg/dL Glucose 63 L (74-99) mg/dL Calcium 9.2 (8.4-10.2) mg/dL AST 117 H (17-59) U/L ALT 52 H (4-49) U/L Alkaline Phosphatase 97 (38-126) U/L Total Protein 6.8 (6.3-8.2) g/dL Albumin 3.9 (3.5-5.0) g/dL Current Medications Generic Name Dose Route Start Last Admin Trade Name Freq PRN Reason Stop Dose Admin Acetaminophen 650 mg 04/30/21 22:55 Acetaminophen Tab 325 Mg Tab PO Q4HR PRN Fever and/or Mild Pain Albuterol/Ipratropium 3 ml 05/01/21 08:00 05/01/21 11:20 Ipratropium-Albuterol 3 Ml Neb INHALATION 3 ml RT-QID EUNICE Administration Norepinephrine Bitartrate 4 mg 254 mls @ 18.751 mls/hr 05/01/21 11:30 / Sodium Chloride IV .[id number] EUNICE Protocol 0.05 MCG/KG/MIN Levetiracetam 500 mg 05/01/21 21:00 Levetiracetam 500 Mg Tab PO BID EUNICE Naloxone HCl 0.2 mg 04/30/21 22:55 Naloxone 0.4 Mg/Ml 1 Ml Vial IV Q2M PRN Opioid Reversal Pantoprazole Sodium 40 mg 05/01/21 09:00 05/01/21 09:42 Pantoprazole 40 Mg/10 Ml Vial IV 40 mg DAILY EUNICE Administration Silver Sulfadiazine 1 applic 05/01/21 12:25 Silver Sulfadiazine 1% Cream 25 Gm Tube TOPICAL BID PRN legs sores Intake and Output 04/30/21 05/01/21 05/01/21 22:59 06:59 14:59 Intake Total 15.563 298.437 477.128 Output Total 120 245 Balance 15.563 178.437 232.128 Intake: IV 60 160 0.9 kvo 60 160 Intake, IV Titration 15.563 238.437 317.128 Amount Norepinephrine 4 mg In 15.563 238.437 317.128 Sodium Chloride 0.9% 250 ml @ 0.05 MCG/KG/MIN 18. 751 mls/hr IV .[id number] ONE Rx#:[id number] Output: Urine 120 245 Other: Voiding Method Indwelling Catheter # Bowel Movements 1 Weight 98.43 kg 98.43 kg 05/01/21 03:56 05/01/21 09:33 EKG Interpretations (text) Atrial fibrillation with evidence of a right bundle Assessment and Plan (1) Acute renal failure Current Visit: Yes Status: Acute Code(s): N17.9 - ACUTE KIDNEY FAILURE, UNSPECIFIED SNOMED Code(s): 41620326 (2) Acute hypoxemic respiratory failure Current Visit: Yes Status: Acute Code(s): J96.01 - ACUTE RESPIRATORY FAILURE WITH HYPOXIA SNOMED Code(s): 227933077 (3) Atrial fibrillation Current Visit: No Status: Acute Code(s): I48.91 - UNSPECIFIED ATRIAL FIBRILLATION SNOMED Code(s): 81429315 (4) CVA (cerebral vascular accident) Current Visit: No Status: Acute Code(s): I63.9 - CEREBRAL INFARCTION, UNSPECIFIED SNOMED Code(s): 807249224 (5) Hyperkalemia Current Visit: Yes Status: Acute Code(s): E87.5 - HYPERKALEMIA SNOMED Code(s): 13546477 (6) Diastolic CHF Current Visit: Yes Status: Acute Code(s): I50.30 - UNSPECIFIED DIASTOLIC (CONGESTIVE) HEART FAILURE SNOMED Code(s): 422946494 Plan: Start patient on IV Lasix drip. Correct hyperkalemia. Input from nephrology. When patient's mental status is stable, further evaluation of the aortic stenosis to be considered. Further recommendations will depend upon clinical course. The possibility of sepsis and possible underlying pneumonia to be also considered
[2021-05-01] MEDS: NOREPINEPHRINE 4 MG in SODIUM CHLORIDE 0.9% 250 ML IV SCH ×2 (15:32→22:03)
[2021-05-01 17:58] LABS: Glucose,Whole Blood 60 mg/dL (75-99)
--- NOTE | 2021-05-01 18:36 | US ---
EXAMINATION TYPE: US kidneys/renal and bladder DATE OF EXAM: 05/01/2021 COMPARISON: NONE CLINICAL HISTORY: caesar. ICU, caesar EXAM MEASUREMENTS: Right Kidney: 8.9 x 4.1 x 5.8 cm Left Kidney: not seen Right Kidney: 3.2cm inferior pole cyst Left Kidney: not seen due to habitus, bowel gas, ascites and patient leaning to the left Bladder: not seen IMPRESSION: Left kidney not seen. No evidence of solid renal mass or obstruction. Right renal cortical cyst. Abdo javad ascites demonstrated.
[2021-05-01] MEDS: APIXABAN 5 MG TAB PO SCH (20:25)
[2021-05-01] MEDS: levETIRAcetam 500 MG TAB PO SCH (20:26)
[2021-05-01 23:42] LABS: Glucose,Whole Blood 70 mg/dL (75-99)
[2021-05-02 03:31] LABS: Glucose,Whole Blood 89 mg/dL (75-99)
[2021-05-02] MEDS: NOREPINEPHRINE 4 MG in SODIUM CHLORIDE 0.9% 250 ML IV SCH ×4 (04:31→19:47)
[2021-05-02 05:54] LABS: Glucose,Whole Blood 84 mg/dL (75-99)
[2021-05-02] MEDS: IPRATROPIUM-ALBUTEROL 3 ML NEB INHALATION SCH ×4 (07:46→20:42)
[2021-05-02 07:48] LABS: Glucose,Whole Blood 98 mg/dL (75-99)
[2021-05-02 07:51] LABS: Basophils % (A) 0 %; Eosinophils # (A) 0.1 k/uL (0-0.7); Eosinophils % (A) 1 %; HGB 17.7 gm/dL (13.0-17.5); Hypochromasia Moderate; Lymphocytes # (A) 0.4 k/uL (1.0-4.8); Lymphocytes % (A) 5 %; MCH 30.2 pg (25.0-35.0); MCHC 30.9 g/dL (31.0-37.0); MCV 97.7 fL (80.0-100.0); Mean Platelet Volume 11.2; Monocytes # (A) 0.7 k/uL (0-1.0); Monocytes % (A) 8 %; Neutrophils # (A) 7.4 k/uL (1.3-7.7); Neutrophils % (A) 83 %; Platelet Count 106 k/uL (150-450); RBC 5.85 m/uL (4.30-5.90); RDW 15.2 % (11.5-15.5); WBC 8.9 k/uL (3.8-10.6)
[2021-05-02 08:03] LABS: HCT 57.1 % (39.0-53.0)
[2021-05-02] MEDS: PANTOPRAZOLE 40 MG/10 ML VIAL IV SCH (08:10)
[2021-05-02] MEDS: APIXABAN 5 MG TAB PO SCH ×2 (08:11→19:48)
[2021-05-02] MEDS: levETIRAcetam 500 MG TAB PO SCH ×2 (08:11→19:48)
[2021-05-02 08:14] LABS: Albumin 3.2 g/dL (3.5-5.0); Calcium 9.2 mg/dL (8.4-10.2); Total Bilirubin 3.4 mg/dL (0.2-1.3); Total Protein 6.1 g/dL (6.3-8.2)
--- NOTE | 2021-05-02 08:18 | XR ---
EXAMINATION TYPE: XR chest 1V portable DATE OF EXAM: 05/02/2021 COMPARISON: X-ray dated 05/01/2021 HISTORY: CHF TECHNIQUE: Single frontal view of the chest is obtained. FINDINGS: Persistent increased cardiac transverse diameter, pericardial effusion cannot be excluded. Persistent prominent interstitial lung markings and pulmonary vascular congestion suggestive of pulmonary edema . Please correlate clinically for CHF. Small bilateral effusions, slightly larger on the right side, not significantly progressed. Unchanged position of the right-sided PICC line. No progressive pulmonary infiltration. IMPRESSION: No significant interval change compared to the previous x-ray.
[2021-05-02 08:33] LABS: Potassium 6.1 mmol/L (3.5-5.1)
[2021-05-02] MEDS: BUMETANIDE 10 MG in DEXTROSE 5% IN WATER 60 ML IV SCH ×2 (08:37)
--- NOTE | 2021-05-02 08:38 | P.NPCON ---
History of Present Illness - Reason for Consult acute renal failure - History of Present Illness Reason for consultation: Acute kidney injury History of present illness: Patient is a 81-year-old male seen in renal consultation for acute kidney injury. Patient initially presented to the hospital due to generalized weakness. He was also noted to have slurred speech. Patient does have history of CVA. Code stroke was activated on admission. Brain CT shows cerebral atrophy and old right parietal infarct. No acute changes were noted. Patient is currently in the ICU on BiPAP. He is not a reliable historian. He is on Levophed. Urine output has been about 10-15 mL an hour. Patient's potassium le florentin was also high this admission and peaked at 6.8 and was down to 5.9 as of yesterday evening. Morning labs are pending. He was taken spironolactone as an outpatient which is currently held. Patient also received IV contrast dye on 04/30/2021 for CTA. No evidence of hydronephrosis was noted on kidney ultrasound. Right kidney was smaller left kidney was not seen. Echocardiogram revealed preserved ejection fraction with mild to moderate mitral and tricuspid regurgitation. Vital signs are stable. On vasopressor support. General: Quite lethargic. HEENT: On BiPAP. LUNGS: Breath sounds decreased. HEART: Rate and Rhythm are regular. ABDOMEN: Soft, mild distention. EXTREMITITES: 1+ edema. Chronic changes noted. 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 Pelvic fracture. History of Any Multi-Drug Resistant Organisms: None Reported Additional Past Surgical History / Comment(s): colonoscopy x3, Past Anesthesia/Blood Transfusion Reactions: No Reported Reaction Past Psychological History: No Psychological Hx Reported Smoking Status: Former smoker Past Alcohol Use History: None Reported Past Drug Use History: None Reported - Past Family History Sister(s) Family Medical History: Diabetes Mellitus, Myocardial Infarction ([place]) Additional Family Medical History / Comment(s): sister from an [place] Mother Family Medical History: No Reported History Additional Family Medical History / Comment(s): multiple sclerosis Son(s) Family Medical History: Hypertension Father Additional Family Medical History / Comment(s): ETOH abuse Medications and Allergies Home Medications Medication Instructions Recorded Confirmed Type Cholecalciferol [Vitamin D3 (25 25 mcg PO DAILY 11/05/15 04/30/21 History Mcg = 1000 Iu)] Multivitamins, Thera [Multivitamin 1 tab PO DAILY 11/05/15 04/30/21 History (formulary)] Apixaban [Eliquis] 5 mg PO BID 01/21/20 04/30/21 History Atorvastatin [Lipitor] 20 mg PO HS 01/21/20 04/30/21 History Furosemide [Lasix] 40 mg PO DAILY 01/21/20 04/30/21 History Metoprolol Tartrate [Lopressor] 25 mg PO BID 01/21/20 04/30/21 History Spironolactone [Aldactone] 25 mg PO BID 01/21/20 04/30/21 History levETIRAcetam [Keppra] 500 mg PO BID 01/21/20 04/30/21 History SILVER sulfADIAZINE Cream 1 applic TOPICAL BID PRN 04/30/21 04/30/21 History [Silvadene 1% Cream] Allergies Allergy/AdvReac Type Severity Reaction Status Date / Time No Known Allergies Allergy Verified 04/30/21 22:18 Physical Exam Vitals: Vital Signs Temp Pulse Resp BP Pulse Ox 05/02/21 07:53 105 H 29 H 05/02/21 07:46 99 31 H 05/02/21 07:00 102 H 22 101/72 97 05/02/21 06:45 110 H 21 97/74 97 05/02/21 06:30 113 H 11 L 103/70 98 05/02/21 06:15 106 H 23 102/66 97 05/02/21 06:00 100.8 F H 106 H 31 H 100/70 98 05/02/21 05:45 102 H 25 H 100/69 98 05/02/21 05:30 109 H 27 H 93/69 97 05/02/21 05:15 92 24 95/66 97 05/02/21 05:00 98 10 L 96/69 91 L 05/02/21 04:45 100.8 F H 109 H 30 H 84/56 97 05/02/21 04:30 101 H 31 H 87/68 99 05/02/21 04:15 105 H 28 H 97/63 98 05/02/21 04:00 100.6 F H 108 H 30 H 97/63 98 05/02/21 03:45 107 H 34 H 170/129 98 05/02/21 03:30 108 H 30 H 99/67 99 05/02/21 03:15 98 29 H 91/64 97 05/02/21 03:00 115 H 30 H 103/75 97 05/02/21 02:45 108 H 38 H 99/64 97 05/02/21 02:30 105 H 32 H 104/71 98 05/02/21 02:15 101 H 33 H 92/63 97 05/02/21 02:00 108 H 28 H 96/66 98 05/02/21 01:45 98 27 H 94/67 98 05/02/21 01:30 105 H 26 H 96/59 98 05/02/21 01:15 105 H 27 H 92/67 98 05/02/21 01:00 98 26 H 86/67 98 05/02/21 00:45 108 H 15 90/65 97 05/02/21 00:30 107 H 28 H 96/62 98 05/02/21 00:15 113 H 24 98/69 96 05/02/21 00:02 109 H 24 98/69 98 05/02/21 00:00 98.2 F 103 H 14 100/67 97 05/01/21 23:45 105 H 20 96/79 97 05/01/21 23:30 97.0 F L 97 24 114/88 98 05/01/21 23:15 101 H 22 97/64 100 05/01/21 23:00 115 H 25 H 94/66 98 05/01/21 22:45 107 H 25 H 96/67 99 05/01/21 22:30 101 H 21 105/69 99 05/01/21 22:15 104 H 36 H 106/75 99 05/01/21 22:00 109 H 28 H 104/81 100 05/01/21 21:45 110 H 24 88/65 99 05/01/21 21:30 102 H 19 106/85 99 05/01/21 21:15 100 26 H 101/70 100 05/01/21 21:00 111 H 24 103/65 99 05/01/21 20:45 100 22 103/75 99 05/01/21 20:30 88 18 107/77 99 05/01/21 20:15 96 20 108/77 99 05/01/21 20:00 98.4 F 90 20 108/78 100 05/01/21 19:45 98 18 94/68 100 05/01/21 19:30 96 26 H 94/66 100 05/01/21 19:15 99 12 92/64 100 05/01/21 19:00 100 15 96/69 100 05/01/21 18:45 95 17 96/68 99 05/01/21 18:30 101 H 19 95/61 05/01/21 18:15 99 15 110/75 05/01/21 18:00 97.9 F 94 25 H 100/72 05/01/21 17:45 104 H 23 106/85 05/01/21 17:30 104 H 18 100/76 05/01/21 17:15 105 H 18 107/72 96 05/01/21 17:00 97.6 F 101 H 15 111/77 97 05/01/21 16:45 105 H 20 99/70 97 05/01/21 16:30 105 H 24 99/69 95 05/01/21 16:15 96 16 110/77 95 05/01/21 16:00 96.4 F L 99 18 103/73 97 05/01/21 15:45 96 17 83/60 96 05/01/21 15:30 85 21 101/77 95 05/01/21 15:15 81 24 98/74 96 05/01/21 15:04 84 22 05/01/21 15:00 97 20 106/75 95 05/01/21 14:56 79 19 05/01/21 14:45 80 19 98/75 96 05/01/21 14:30 86 18 103/63 96 05/01/21 14:15 87 18 100/71 94 L 05/01/21 14:00 96.2 F L 78 21 98/74 97 05/01/21 13:45 82 19 111/77 99 05/01/21 13:30 78 14 106/67 99 05/01/21 13:15 92 16 115/85 05/01/21 13:00 82 23 119/79 96 05/01/21 12:45 98 15 114/83 97 05/01/21 12:30 96 17 100/77 99 05/01/21 12:15 98 21 101/83 98 05/01/21 12:00 98.2 F 94 17 101/73 94 L 05/01/21 11:45 93 23 109/80 96 05/01/21 11:30 96 22 111/80 93 L 05/01/21 11:27 96 23 05/01/21 11:20 95 20 05/01/21 11:15 96 25 H 115/72 96 05/01/21 11:00 98.2 F 94 20 112/78 95 05/01/21 10:45 98.1 F 98 19 112/87 94 L 05/01/21 10:30 98 24 103/74 95 05/01/21 10:15 92 25 H 101/73 95 05/01/21 10:00 98 22 118/82 96 05/01/21 09:45 99 29 H 114/68 97 05/01/21 09:30 86 26 H 111/85 96 05/01/21 09:15 82 24 115/81 98 05/01/21 09:00 72 26 H 73/63 96 05/01/21 08:45 83 29 H 103/68 97 Intake and Output 05/01/21 05/02/21 05/02/21 22:59 06:59 14:59 Intake Total 306.944 380.385 40 Output Total 230 110 70 Balance 76.944 270.385 -30 Intake: IV 160 160 40 0.9 kvo 160 160 40 Intake, IV Titration 146.944 220.385 Amount Norepinephrine 4 mg In 146.944 220.385 Sodium Chloride 0.9% 250 ml @ 0.05 MCG/KG/MIN 18. 751 mls/hr IV .[id number] [facility] Rx#:[id number] Output: Urine 230 110 70 Other: Voiding Method Indwelling Catheter Indwelling Catheter # Bowel Movements 1 1 Weight 100.8 kg Results - Lab Results Most recent lab results Calcium 9.2 mg/dL (8.4-10.2) 05/01/21 03:56 Magnesium 2.9 mg/dL (1.6-2.3) H 05/01/21 03:56 05/02/21 07:05 05/01/21 16:22 Assessment and Plan Plan: Assessment: 1. Acute kidney injury secondary to ATN secondary to hypotension, cardiorenal syndrome and component of contrast-induced acute kidney injury. Patient received IV contrast on 04/30/2021. Creatinine stable near 2.45 this admission. No hydronephrosis and kidney ultrasound. 2. Chronic kidney disease stage III. Baseline creatinine in the range of 1.3- 1.6. Etiology is nephrosclerosis. 3. Hyperkalemia secondary to acute kidney injury and spironolactone. 4. Volume overload. 5. Acute hypoxic respiratory failure. 6. Acute on chronic diastolic CHF and mild to moderate mitral and tricuspid regurgitation. 7. History of CVA. Plan: Start Bumex drip. Wean FiO2 and vasopressors. Avoid nephrotoxins. Continue to monitor renal function and urine output. Follow-up morning labs. Thank you for the consultation. I will continue to follow the patient with you during his hospital stay.
--- NOTE | 2021-05-02 09:18 | P.PN ---
Subjective Progress Note Date: 05/02/21 This is an 81-year-old male patient with a known history of congestive heart failure, CVA/TIA, hypertension, hyperlipidemia, chronic atrial fibrillation anticoagulated with Eliquis, epilepsy maintained on Keppra, previous ventilatory dependent respiratory failure secondary to CHF. He was brought into the emergency room by EMS yesterday with generalized weakness and slurred speech. Initially a code stroke was called. Computed tomography scan of the brain did not reveal any acute abnormalities. CT angiogram of the head and neck revealed no evidence of intracranial hemodynamic stenosis. His NIH score was 2. Carotid Dopplers were suboptimal but no hemodynamically significant stenosis noted. He was felt to be more in a cardiogenic shock state. X-ray revealed significant pulmonary edema. Blunting of the right costophrenic angle. Congestive heart failure with a right pleural effusion. EKG revealed atrial fibrillation with a right bundle-branch block. Review his echocardiogram revealed preserved left ventricular systolic function. There is noted moderate to severe aortic stenosis. He was placed on BiPAP currently 14/7 and 80% FiO2 with O2 saturations in the mid 90s. He does have chronic edema and vascular changes of the lower extremities. He is arousable. White count 7.9. Hemoglobin 17.8. Sodium 135. Potassium 6.8. BUN 60. Creatinine 2.45. Glucose 63. Troponin 0.045. AST 117. ALT 52. The patient is seen today 05/02/20212017 in follow-up in the intensive care unit. He was taken off the BiPAP earlier this morning and is currently on 35% Ventimask. He is awake. Alert. He drifts off easily still. He has had issues with loose stools. C. difficile screen is negative. Lactic acid levels have trended down. As of a temperature 100.6. Chest x-ray continues to show some evidence of fluid volume overload. He is requiring norepinephrine at 0.1 mcg/kg/m. He's been initiated on Bumex drip at 0.5 mg per hour per nephrology. He is anticoagulated with Eliquis. White count 8.9. Hemoglobin 17.7. Platelet count 106,000. Sodium 139. Potassium 6.1. BUN 64. Creatinine 2.64. AST 87. ALT 48. Currently in a +270 balance. He continues with Doppler pulses in lower extremities. Still with significant vascular changes mostly chronic possibly an acute component. Objective - Vital Signs Vital signs: Vital Signs Temp 100.6 F H 05/02/21 08:00 Pulse 107 H 05/02/21 08:15 Resp 21 05/02/21 08:15 BP 102/71 05/02/21 08:15 Pulse Ox 97 05/02/21 08:15 Intake & Output 05/01/21 05/02/21 05/02/21 18:59 06:59 18:59 Intake Total 557.128 607.329 40 Output Total 395 190 70 Balance 162.128 417.329 -30 Weight 100.8 kg Intake: IV 240 240 40 0.9 kvo 240 240 40 Intake, IV Titration 317.128 367.329 Amount Norepinephrine 4 mg In 317.128 Sodium Chloride 0.9% 250 ml @ 0.05 MCG/KG/MIN 18. 751 mls/hr IV .[id number] [facility] Rx#:[id number] Norepinephrine 4 mg In 367.329 Sodium Chloride 0.9% 250 ml @ 0.05 MCG/KG/MIN 18. 751 mls/hr IV .[id number] REPLACED BY [facility] Rx#:[id number] Output: Urine 395 190 70 Other: Voiding Method Indwelling Catheter Indwelling Catheter # Bowel Movements 1 1 - Exam GENERAL EXAM: Alert, 81-year-old male patient, on 35% Ventimask, fairly comfortable in no apparent distress. HEAD: Normocephalic. EYES: Normal reaction of pupils, equal size. NOSE: Clear with pink turbinates. THROAT: No erythema or exudates. NECK: No masses, no JVD. CHEST: No chest wall deformity. LUNGS: Equal air entry with crackles in the bilateral bases. CVS: S1 and S2 normal with an audible murmur, irregular rhythm. ABDOMEN: No hepatosplenomegaly, normal bowel sounds, no guarding or rigidity. SPINE: No scoliosis or deformity SKIN: No rashes CENTRAL NERVOUS SYSTEM: No focal deficits, tone is normal in all 4 extremities. EXTREMITIES: Changes of chronic venous stasis. There is some additional redness possibly acute changes as well. There is 1+ peripheral edema. Doppler pulses. - Labs CBC & Chem 7: 05/02/21 07:05 05/02/21 07:05 Labs: Abnormal Lab Results - Last 24 Hours (Table) 05/01/21 05/01/21 05/01/21 Range/Units 09:33 14:53 16:22 Hgb (13.0-17.5) gm/dL Hct (39.0-53.0) % MCHC (31.0-37.0) g/dL Plt Count (150-450) k/uL Potassium 6.1 H* 5.9 H (3.5-5.1) mmol/L BUN (9-20) mg/dL Creatinine (0.66-1.25) mg/dL POC Glucose (mg/dL) (75-99) mg/dL Plasma Lactic Acid Yakov 2.4 H* (0.7-2.0) mmol/L Total Bilirubin (0.2-1.3) mg/dL AST (17-59) U/L Total Protein (6.3-8.2) g/dL Albumin (3.5-5.0) g/dL 05/01/21 05/01/21 05/02/21 Range/Units 17:57 23:40 07:05 Hgb 17.7 H (13.0-17.5) gm/dL Hct 57.1 H* (39.0-53.0) % MCHC 30.9 L (31.0-37.0) g/dL Plt Count 106 L (150-450) k/uL Potassium (3.5-5.1) mmol/L BUN (9-20) mg/dL Creatinine (0.66-1.25) mg/dL POC Glucose (mg/dL) 60 L 70 L (75-99) mg/dL Plasma Lactic Acid Yakov (0.7-2.0) mmol/L Total Bilirubin (0.2-1.3) mg/dL AST (17-59) U/L Total Protein (6.3-8.2) g/dL Albumin (3.5-5.0) g/dL 05/02/21 Range/Units 07:05 Hgb (13.0-17.5) gm/dL Hct (39.0-53.0) % MCHC (31.0-37.0) g/dL Plt Count (150-450) k/uL Potassium 6.1 H* (3.5-5.1) mmol/L BUN 64 H (9-20) mg/dL Creatinine 2.64 H (0.66-1.25) mg/dL POC Glucose (mg/dL) (75-99) mg/dL Plasma Lactic Acid Yakov (0.7-2.0) mmol/L Total Bilirubin 3.4 H (0.2-1.3) mg/dL AST 87 H (17-59) U/L Total Protein 6.1 L (6.3-8.2) g/dL Albumin 3.2 L (3.5-5.0) g/dL Assessment and Plan Assessment: 1 Acute hypoxemic respiratory failure secondary to an acute exacerbation of suspected diastolic congestive heart failure. Previous echocardiogram revealed preserved left ventricular systolic function 2 Acute cardiogenic shock secondary to diastolic congestive heart failure 3 Acute renal failure secondary to above 4 Acute hyperkalemia secondary to above 5 Febrile illness currently 100.6, pro calcitonin pending, initiated on Unasyn 6 Moderate to severe aortic stenosis 7 Chronic atrial fibrillation, anticoagulants with Eliquis 8 History of diastolic congestive heart failure 9 History of chronic lower extremity edema with changes of chronic venous stasis 10 History of epilepsy following a CVA, maintained on Keppra 11 History of CVA 12 History of hypertension 13 Hyperlipidemia 14 History of prostate cancer status post radiation Plan: The patient was seen and evaluated Chest x-ray and labs reviewed The patient's been initiated on a Bumex drip per nephrology We'll continue to titrate down the norepinephrine as tolerated Add Unasyn today Awaiting pro calcitonin, serum cortisol level Anticoagulated with Eliquis Titrate the FiO2 as tolerated Follow-up chest x-ray and labs in the a.m. Prognosis remains guarded We will continue to follow I, the cosigning physician, performed a history & physical examination of the patient. Lungs sounds with crackles in the bilateral bases. Maintaining O2 saturations in the 90s on 35% FiO2 via Ventimask. I discussed the assessment and plan of care with my nurse practitioner, Chelle Becerra. I attest to the above note as dictated by her.
--- NOTE | 2021-05-02 09:28 | P.HPIM ---
History of Present Illness H&P Date: 05/01/21 Chief Complaint: Hypotension, hypoxia ,slurred speech This is an 81-year-old gentleman with history of prior CVA 2, hypertension, hyperlipidemia, chronic atrial fibrillation-anticoagulated on Eliquis, CHF and multiple other medical issues brought to the ER via EMS with increased weakness, slurred speech, with concerns for possible CVA. Denied nausea, vomiting or abdominal pain. On arrival patient was cyanotic, hypotensive, temperature 94F degrees rectally, tachypneic, O2 sat 84% on room air.Code stroke initially called. NIH score 2. Brain CT reported no acute intracranial abnormality, old right parietal cortical infarct, no significant change. CTA of head and neck limited exam, reported no evidence of intracranial hemodynamic stenosis, carotid arteries of the neck not well evaluated and thrombosis is possible, large left vertebral artery-possible that entire intracranial circulation of the left vertebral artery.Carotid Dopplers study suboptimal reported no hemodynamic significant stenosis. Chest x-ray reporting pulmonary edema with right pleural effusion. ProBNP 1920.EKG reportedly atrial fibrillation with right bundle branch block. Troponins 0.042, 0.045. Echo reporting preserved LV function with moderate to severe aortic stenosis. On admission, WBC 6, hemoglobin 17.3, platelets 101, INR 1.5, sodium 134, potassium 6.2-currently down to 5.9, chl oride 97, bicarb 24, BUN 61, creatinine 2.46, T bili 2.6, AST 92, ALT 40. UA negative. Coronavirus detected. Currently on BiPAP and maintaining O2 sats in the 90s, under a warming blanket. 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 Pelvic fracture. History of Any Multi-Drug Resistant Organisms: None Reported Additional Past Surgical History / Comment(s): colonoscopy x3, Past Anesthesia/Blood Transfusion Reactions: No Reported Reaction Past Psychological History: No Psychological Hx Reported Smoking Status: Former smoker Past Alcohol Use History: None Reported Past Drug Use History: None Reported - Past Family History Sister(s) Family Medical History: Diabetes Mellitus, Myocardial Infarction ([place]) Additional Family Medical History / Comment(s): sister from an [place] Mother Family Medical History: No Reported History Additional Family Medical History / Comment(s): multiple sclerosis Son(s) Family Medical History: Hypertension Father Additional Family Medical History / Comment(s): ETOH abuse Medications and Allergies Home Medications Medication Instructions Recorded Confirmed Type Cholecalciferol [Vitamin D3 (25 25 mcg PO DAILY 11/05/15 04/30/21 History Mcg = 1000 Iu)] Multivitamins, Thera [Multivitamin 1 tab PO DAILY 11/05/15 04/30/21 History (formulary)] Apixaban [Eliquis] 5 mg PO BID 01/21/20 04/30/21 History Atorvastatin [Lipitor] 20 mg PO HS 01/21/20 04/30/21 History Furosemide [Lasix] 40 mg PO DAILY 01/21/20 04/30/21 History Metoprolol Tartrate [Lopressor] 25 mg PO BID 01/21/20 04/30/21 History Spironolactone [Aldactone] 25 mg PO BID 01/21/20 04/30/21 History levETIRAcetam [Keppra] 500 mg PO BID 01/21/20 04/30/21 History SILVER sulfADIAZINE Cream 1 applic TOPICAL BID PRN 04/30/21 04/30/21 History [Silvadene 1% Cream] Allergies Allergy/AdvReac Type Severity Reaction Status Date / Time No Known Allergies Allergy Verified 04/30/21 22:18 Physical Exam Vitals: Vital Signs Temp Pulse Resp BP Pulse Ox 05/01/21 14:30 86 18 103/63 96 05/01/21 14:15 87 18 100/71 94 L 05/01/21 14:00 96.2 F L 78 21 98/74 97 05/01/21 13:45 82 19 111/77 99 05/01/21 13:30 78 14 106/67 99 05/01/21 13:15 92 16 115/85 05/01/21 13:00 82 23 119/79 96 05/01/21 12:45 98 15 114/83 97 05/01/21 12:30 96 17 100/77 99 05/01/21 12:15 98 21 101/83 98 05/01/21 12:00 98.2 F 94 17 101/73 94 L 05/01/21 11:45 93 23 109/80 96 05/01/21 11:30 96 22 111/80 93 L 05/01/21 11:27 96 23 05/01/21 11:20 95 20 05/01/21 11:15 96 25 H 115/72 96 05/01/21 11:00 98.2 F 94 20 112/78 95 05/01/21 10:45 98.1 F 98 19 112/87 94 L 05/01/21 10:30 98 24 103/74 95 05/01/21 10:15 92 25 H 101/73 95 05/01/21 10:00 98 22 118/82 96 05/01/21 09:45 99 29 H 114/68 97 05/01/21 09:30 86 26 H 111/85 96 05/01/21 09:15 82 24 115/81 98 05/01/21 09:00 72 26 H 73/63 96 05/01/21 08:45 83 29 H 103/68 97 05/01/21 08:30 81 19 111/91 96 05/01/21 08:15 96 19 116/85 96 05/01/21 08:00 96.8 F L 81 26 H 108/70 97 05/01/21 07:48 79 20 05/01/21 07:45 84 24 122/83 96 05/01/21 07:39 80 17 05/01/21 07:30 86 19 117/84 97 05/01/21 07:15 85 23 108/76 96 05/01/21 07:00 95 26 H 116/77 95 05/01/21 06:45 101 H 27 H 112/81 97 05/01/21 06:30 90 26 H 112/81 96 05/01/21 06:15 85 26 H 129/86 96 05/01/21 06:00 88 22 122/87 97 05/01/21 05:45 88 20 122/87 96 05/01/21 05:30 83 30 H 122/98 97 05/01/21 05:15 84 21 137/91 96 05/01/21 05:00 90 15 137/91 94 L 05/01/21 04:45 87 27 H 124/85 96 05/01/21 04:30 85 22 125/98 97 05/01/21 04:20 80 15 125/98 99 05/01/21 04:10 82 21 80/31 05/01/21 04:00 96.3 F L 85 27 H 78/56 96 05/01/21 03:50 95.6 F L 82 20 99/60 97 05/01/21 03:49 84 25 H 04/30/21 23:40 84 04/30/21 23:30 80 04/30/21 23:10 93.5 F L 81 29 H 106/83 74 L 04/30/21 23:00 81 26 H 106/83 78 L 04/30/21 22:45 87 24 79/68 84 L 04/30/21 22:30 86 25 H 87/50 85 L 04/30/21 22:15 78 26 H 107/96 88 L 04/30/21 22:00 78 29 H 74/21 87 L 04/30/21 21:45 73 29 H 70/21 87 L 04/30/21 21:30 78 30 H 105/47 89 L 04/30/21 21:15 79 27 H 94/84 86 L 04/30/21 21:00 71 26 H 108/81 90 L 04/30/21 20:45 93 27 H 110/28 86 L 04/30/21 20:39 94 F L 04/30/21 20:30 79 29 H 84/70 92 L 04/30/21 20:15 79 30 H 97/79 85 L 04/30/21 20:08 84 16 93/34 84 L Intake and Output 04/30/21 05/01/21 05/01/21 22:59 06:59 14:59 Intake Total 15.563 298.437 477.128 Output Total 120 245 Balance 15.563 178.437 232.128 Intake: IV 60 160 0.9 kvo 60 160 Intake, IV Titration 15.563 238.437 317.128 Amount Norepinephrine 4 mg In 15.563 238.437 317.128 Sodium Chloride 0.9% 250 ml @ 0.05 MCG/KG/MIN 18. 751 mls/hr IV .[id number] ONE Rx#:[id number] Output: Urine 120 245 Other: Voiding Method Indwelling Catheter # Bowel Movements 1 Weight 98.43 kg 98.43 kg - Exam GENERAL: Sitting up in bed, minimally arousable, on BiPAP with heating blanket on. HEENT: Head is atraumatic, normocephalic. Pupils are equal, round, and reactive to light. Sclerae anicteric. Conjunctivae are clear. Mucus membranes of the mouth are moist. Neck is supple. RESPIRATORY: Diminished with Bibasilar crackles. CARDIOVASCULAR: Irregular rate and rhythm. Regular S1 and S2 noted. Positive systolic murmur auscultated. No JVD noted. No S3 or S4 noted. GASTROINTESTINAL: No distention noted. Abdomen soft and round. Normal active bowel sounds auscultated x 4 quadrants. No pain or tenderness noted upon palpation. INTEGUMENTARY: Under warming blanket. EXTREMITIES: Chronic venous stasis changes, with deep purple lower extremities, ischemic in appearance, weak Doppler pulses, weeping, positive edema. NEUROLOGIC: Cranial nerves II-XII intact. PSYCHIATRIC: Awake, alert, and oriented X 2. Appropriate affect. Intact judgement and insight. Results CBC & Chem 7: 05/02/21 07:05 05/02/21 07:05 Labs: Abnormal Lab Results - Last 24 Hours (Table) 04/30/21 04/30/21 04/30/21 Range/Units 20:34 20:34 20:34 Hgb (13.0-17.5) gm/dL Hct 55.5 H (39.0-53.0) % MCHC (31.0-37.0) g/dL Plt Count 101 L (150-450) k/uL Lymphocytes # (Manual) 0.30 L (1.0-4.8) k/uL Monocytes # (Manual) (0-1.0) k/uL PT (9.0-12.0) sec INR (<1.2) APTT (22.0-30.0) sec Sodium 133 L (137-145) mmol/L Potassium 6.3 H* (3.5-5.1) mmol/L Chloride 96 L (98-107) mmol/L Carbon Dioxide (22-30) mmol/L BUN 61 H (9-20) mg/dL Creatinine 2.41 H (0.66-1.25) mg/dL Glucose (74-99) mg/dL POC Glucose (mg/dL) (75-99) mg/dL Magnesium (1.6-2.3) mg/dL Total Bilirubin 2.6 H (0.2-1.3) mg/dL AST 92 H (17-59) U/L ALT (4-49) U/L Troponin I 0.042 H* (0.000-0.034) ng/mL Ur Specific [place] (1.001-1.035) Urine Protein (Negative) Urine RBC (0-5) /hpf Urine WBC (0-5) /hpf Amorphous Sediment (None) /hpf Urine Bacteria (None) /hpf Hyaline Casts (0-2) /lpf Urine Mucus (None) /hpf 04/30/21 04/30/21 05/01/21 Range/Units 21:37 22:06 00:01 Hgb (13.0-17.5) gm/dL Hct (39.0-53.0) % MCHC (31.0-37.0) g/dL Plt Count (150-450) k/uL Lymphocytes # (Manual) (1.0-4.8) k/uL Monocytes # (Manual) (0-1.0) k/uL PT 15.6 H (9.0-12.0) sec INR 1.5 H (<1.2) APTT 31.7 H (22.0-30.0) sec Sodium 134 L 135 L (137-145) mmol/L Potassium 6.2 H* 6.2 H* (3.5-5.1) mmol/L Chloride 97 L 97 L (98-107) mmol/L Carbon Dioxide (22-30) mmol/L BUN 61 H 59 H (9-20) mg/dL Creatinine 2.46 H 2.45 H (0.66-1.25) mg/dL Glucose 71 L (74-99) mg/dL POC Glucose (mg/dL) (75-99) mg/dL Magnesium (1.6-2.3) mg/dL Total Bilirubin (0.2-1.3) mg/dL AST (17-59) U/L ALT (4-49) U/L Troponin I (0.000-0.034) ng/mL Ur Specific [place] (1.001-1.035) Urine Protein (Negative) Urine RBC (0-5) /hpf Urine WBC (0-5) /hpf Amorphous Sediment (None) /hpf Urine Bacteria (None) /hpf Hyaline Casts (0-2) /lpf Urine Mucus (None) /hpf 05/01/21 05/01/21 05/01/21 Range/Units 03:56 03:56 03:56 Hgb 17.8 H (13.0-17.5) gm/dL Hct 57.7 H* (39.0-53.0) % MCHC 30.9 L (31.0-37.0) g/dL Plt Count 116 L (150-450) k/uL Lymphocytes # (Manual) 0.47 L (1.0-4.8) k/uL Monocytes # (Manual) 1.19 H (0-1.0) k/uL PT (9.0-12.0) sec INR (<1.2) APTT (22.0-30.0) sec Sodium 135 L (137-145) mmol/L Potassium 6.8 H* (3.5-5.1) mmol/L Chloride (98-107) mmol/L Carbon Dioxide 20 L (22-30) mmol/L BUN 60 H (9-20) mg/dL Creatinine 2.45 H (0.66-1.25) mg/dL Glucose 63 L (74-99) mg/dL POC Glucose (mg/dL) (75-99) mg/dL Magnesium 2.9 H (1.6-2.3) mg/dL Total Bilirubin 2.7 H (0.2-1.3) mg/dL AST 117 H (17-59) U/L ALT 52 H (4-49) U/L Troponin I 0.045 H* (0.000-0.034) ng/mL Ur Specific [place] (1.001-1.035) Urine Protein (Negative) Urine RBC (0-5) /hpf Urine WBC (0-5) /hpf Amorphous Sediment (None) /hpf Urine Bacteria (None) /hpf Hyaline Casts (0-2) /lpf Urine Mucus (None) /hpf 05/01/21 05/01/21 05/01/21 Range/Units 04:26 05:12 09:33 Hgb (13.0-17.5) gm/dL Hct (39.0-53.0) % MCHC (31.0-37.0) g/dL Plt Count (150-450) k/uL Lymphocytes # (Manual) (1.0-4.8) k/uL Monocytes # (Manual) (0-1.0) k/uL PT (9.0-12.0) sec INR (<1.2) APTT (22.0-30.0) sec Sodium (137-145) mmol/L Potassium 6.1 H* (3.5-5.1) mmol/L Chloride (98-107) mmol/L Carbon Dioxide (22-30) mmol/L BUN (9-20) mg/dL Creatinine (0.66-1.25) mg/dL Glucose (74-99) mg/dL POC Glucose (mg/dL) 129 H (75-99) mg/dL Magnesium (1.6-2.3) mg/dL Total Bilirubin (0.2-1.3) mg/dL AST (17-59) U/L ALT (4-49) U/L Troponin I (0.000-0.034) ng/mL Ur Specific [place] 1.046 H (1.001-1.035) Urine Protein 1+ H (Negative) Urine RBC 13 H (0-5) /hpf Urine WBC 6 H (0-5) /hpf Amorphous Sediment Rare H (None) /hpf Urine Bacteria Rare H (None) /hpf Hyaline Casts 304 H (0-2) /lpf Urine Mucus Rare H (None) /hpf Assessment and Plan Assessment: Acute cardiogenic shock secondary to Acute diastolic CHF exacerbation. Acute hypoxic respiratory failure, BiPAP dependent Acute renal failure secondary to ATN related to the above, cardiorenal syndrome. Hyperkalemia secondary to the above Moderate to severe aortic stenosis Troponin leak Chronic A. fib on anticoagulation History of CVA 2 Epilepsy , history of, on Keppra with history of Chronic lower extremity venous stasis changes, ischemic appearing Hypertension, history of Hyperlipidemia Plan: Continue on current medication regime ,monitoring and symptomatic treatment. Hyperkalemia- Aldactone on hold. Lasix drip initiated .Nephrology c onsulted, recommendations pending. Close monitoring of electrolytes with repeat labs ordered for a.m. ICU management as per cnc manager. Prognosis guarded given multiple complex medical issues. The impression and plan of care has been dictated as directed. : I performed a history and examination of this patient, discussed the same with the dictator. I agree with the dictator's note ,documented as a scribe. Any additional findings or plans will be noted.
[2021-05-02] MEDS: AMPICILLIN-SULBACTAM 1.5 GM in SODIUM CHLORIDE 0.9% 50 ML IVPB SCH ×2 (09:44→17:18)
[2021-05-02] MEDS ORDERED: DEXTROSE 50% SYRINGE 50 ML IVP STA (10:13)
[2021-05-02] MEDS ORDERED: CALCIUM GLUCONATE 1 GM in SODIUM CHLORIDE 0.9% 100 ML IVPB ONE (11:00)
[2021-05-02] MEDS ORDERED: INSULIN REGULAR 100 UNIT/ML VIAL (IV) IV ONE (11:00)
[2021-05-02] MEDS ORDERED: SODIUM ZIRCONIUM CYCLOSILICATE 10 GM PACKET PO ONE (11:00)
[2021-05-02 11:45] LABS: Glucose,Whole Blood 137 mg/dL (75-99)
--- NOTE | 2021-05-02 12:45 | P.PN ---
Subjective Progress Note Date: 05/02/21 History of present illness: This is a 81-year-old gentleman with history of diastolic CHF, previous CVA, hypertension, hyperlipidemia and also chronic atrial fibrillation was brought to the hospital with complaints of rather abrupt onset of weakness and slurred speech with a suspicion for CVA. Initially "stroke was initiated. Apparently patient was hypotensive on arrival. Computed tomography scan of the brain did not reveal any acute abnormalities. CT angiogram the head and neck revealed no evidence of intracranial hemodynamics stenosis. His NIH score was 2. Carotid d uplex study was suboptimal but no Sigmund stenosis noted. A chest x-ray showed evidence of CHF and possible bibasilar infiltrates. His echocardiogram showed preserved LV function with evidence of possible moderate to severe aortic stenosis. The echocardiographic studies done over the last several years have shown varying gradient across the aortic valve. Patient's creatinine was high, computed to the previous admissions size to acute renal failure associated with hyperkalemia. Patient was on Lasix 40 mg and also Aldactone 25 mg by mouth twice a day at home. His potassium is high. His urine output has been low. Patient has been hypotensive and has been on Levophed. Patient also on an ticoagulation therapy at home. Patient is awake and responds to verbal stimuli. His BUN is 60, creatinine is 2.45. Renal consult is initiated. The picture could be consistent with a diastolic CHF though concomitant pneumonia and sepsis cannot be excluded. I will initiate on IV Lasix drip and await further recommendations of the turn down man. Hold off Aldactone. His troponin values are mildly elevated but not consistent with acute myocardial injury pattern. His EKG showed atrial fibrillation with a right bundle-branch block without any acute changes. Further recommendations depend upon clinical course. 05/02/2021: This patient seemed to be little more stable. Still on vasopressors for the blood pressure. Patient seemed to be awake but sleepy. He was able to take in his his . His urine output has been slow. A chest x-ray showed some improvement. His kidney function remained stable, but potassium is high. Nephrology is following and correcting potassium levels. Patient is initiated on IV Bumex. Patient also has a dusky ischemic-looking feet. Also having mild fevers. Patient is going to have a calcitonin and also blood cultures. Patient will continue current management. Collar for possible underlying sepsis. Prognosis is guarded. We will follow Objective - Vital Signs Vital signs: Vital Signs Temp 98.4 F 05/02/21 12:00 Pulse 122 H 05/02/21 12:00 Resp 18 05/02/21 12:00 BP 99/69 05/02/21 12:00 Pulse Ox 98 05/02/21 12:00 Intake & Output 05/01/21 05/02/21 05/02/21 18:59 06:59 18:59 Intake Total 557.128 607.329 445.504 Output Total 395 190 520 Balance 162.128 417.329 -74.496 Weight 100.8 kg Intake: IV 240 240 120 0.9 kvo 240 240 120 Intake, IV Titration 317.128 367.329 325.504 Amount Norepinephrine 4 mg In 317.128 Sodium Chloride 0.9% 250 ml @ 0.05 MCG/KG/MIN 18. 751 mls/hr IV .[id number] ONE Rx#:[id number] Norepinephrine 4 mg In 367.329 325.504 Sodium Chloride 0.9% 250 ml @ 0.05 MCG/KG/MIN 18. 751 mls/hr IV .[id number] [facility] Rx#:[id number] Output: Urine 395 190 520 Other: Voiding Method Indwelling Catheter Indwelling Catheter Indwelling Catheter # Bowel Movements 1 1 1 - Exam GENERAL EXAM: Patient is sleepy but arousable HEENT: Normocephalic. Normal reaction of pupils, equal size, normal range of extraocular motion. No erythema or exudates in the throat. NECK: No masses, no nuchal rigidity. CHEST: No chest wall deformity. LUNGS: Diminished breath sounds HEART: S1 and S2 normal . A stent heart sounds, systolic murmur present ABDOMEN: Soft SKIN: No rashes CENTRAL NERVOUS SYSTEM: No focal deficits. EXTREMITIES: Dusky and dark looking rule out ischemia - Labs CBC & Chem 7: 05/02/21 07:05 05/02/21 07:05 Labs: Abnormal Lab Results - Last 24 Hours (Table) 05/01/21 05/01/21 05/01/21 Range/Units 14:53 16:22 17:57 Hgb (13.0-17.5) gm/dL Hct (39.0-53.0) % MCHC (31.0-37.0) g/dL Plt Count (150-450) k/uL Lymphocytes # (1.0-4.8) k/uL Potassium 5.9 H (3.5-5.1) mmol/L BUN (9-20) mg/dL Creatinine (0.66-1.25) mg/dL POC Glucose (mg/dL) 60 L (75-99) mg/dL Plasma Lactic Acid Yakov 2.4 H* (0.7-2.0) mmol/L Total Bilirubin (0.2-1.3) mg/dL AST (17-59) U/L Total Protein (6.3-8.2) g/dL Albumin (3.5-5.0) g/dL 05/01/21 05/02/21 05/02/21 Range/Units 23:40 07:05 07:05 Hgb 17.7 H (13.0-17.5) gm/dL Hct 57.1 H* (39.0-53.0) % MCHC 30.9 L (31.0-37.0) g/dL Plt Count 106 L (150-450) k/uL Lymphocytes # 0.4 L (1.0-4.8) k/uL Potassium 6.1 H* (3.5-5.1) mmol/L BUN 64 H (9-20) mg/dL Creatinine 2.64 H (0.66-1.25) mg/dL POC Glucose (mg/dL) 70 L (75-99) mg/dL Plasma Lactic Acid Yakov (0.7-2.0) mmol/L Total Bilirubin 3.4 H (0.2-1.3) mg/dL AST 87 H (17-59) U/L Total Protein 6.1 L (6.3-8.2) g/dL Albumin 3.2 L (3.5-5.0) g/dL 05/02/21 Range/Units 11:44 Hgb (13.0-17.5) gm/dL Hct (39.0-53.0) % MCHC (31.0-37.0) g/dL Plt Count (150-450) k/uL Lymphocytes # (1.0-4.8) k/uL Potassium (3.5-5.1) mmol/L BUN (9-20) mg/dL Creatinine (0.66-1.25) mg/dL POC Glucose (mg/dL) 137 H (75-99) mg/dL Plasma Lactic Acid Yakov (0.7-2.0) mmol/L Total Bilirubin (0.2-1.3) mg/dL AST (17-59) U/L Total Protein (6.3-8.2) g/dL Albumin (3.5-5.0) g/dL Assessment and Plan (1) Acute renal failure Current Visit: Yes Status: Acute Code(s): N17.9 - ACUTE KIDNEY FAILURE, UNSPECIFIED SNOMED Code(s): 17388111 (2) Acute hypoxemic respiratory failure Current Visit: Yes Status: Acute Code(s): J96.01 - ACUTE RESPIRATORY FAILURE WITH HYPOXIA SNOMED Code(s): 657625692 (3) Atrial fibrillation Current Visit: No Status: Acute Code(s): I48.91 - UNSPECIFIED ATRIAL FIBRILLATION SNOMED Code(s): 46113364 (4) CVA (cerebral vascular accident) Current Visit: No Status: Acute Code(s): I63.9 - CEREBRAL INFARCTION, UNSPECIFIED SNOMED Code(s): 645538576 (5) Hyperkalemia Current Visit: Yes Status: Acute Code(s): E87.5 - HYPERKALEMIA SNOMED Code(s): 07860412 (6) Diastolic CHF Current Visit: Yes Status: Acute Code(s): I50.30 - UNSPECIFIED DIASTOLIC (CONGESTIVE) HEART FAILURE SNOMED Code(s): 407335562 Plan: Patient again has hypokalemia which is being addressed. IV Lasix has been changed to IV Bumex. Patient is also being worked up for possible sepsis. Vascular consult is requested. Further recommendations depend upon the clinical course
--- NOTE | 2021-05-02 13:56 | P.PN ---
Subjective Progress Note Date: 05/02/21 This is an 81-year-old gentleman with history of prior CVA 2, hypertension, hyperlipidemia, chronic atrial fibrillation-anticoagulated on Eliquis, CHF and multiple other medical issues brought to the ER via EMS with increased weakness, slurred speech, with concerns for possible CVA. Denied nausea, vomiting or abdominal pain. On arrival patient was cyanotic, hypotensive, temperature 94F degrees rectally, tachypneic, O2 sat 84% on room air.Code stroke initially called. NIH score 2. Brain CT reported no acute intracranial abnormality, old right parietal cortical infarct, no significant change. CTA of head and neck limited exam, reported no evidence of intracranial hemodynamic stenosis, carotid arteries of the neck not well evaluated and thrombosis is possible, large left vertebral artery-possible that entire intracranial circulation of the left vertebral artery.Carotid Dopplers study suboptimal reported no hemodynamic significant stenosis. Chest x-ray reporting pulmonary edema with right pleural effusion. ProBNP 1920.EKG reportedly atrial fibrillation with right bundle branch block. Troponins 0.042, 0.045. Echo reporting preserved LV function with moderate to severe aortic stenosis. On admission, WBC 6, hemoglobin 17.3, platelets 101, INR 1.5, sodium 134, potassium 6.2-currently down to 5.9, chloride 97, bicarb 24, BUN 61, creatinine 2.46, T bili 2.6, AST 92, ALT 40. UA negative. Coronavirus detected. Currently on BiPAP and maintaining O2 sats in the 90s, under a warming blanket. 05/02/2021 Fatigued,more alert this morning, BiPAP during the night, currently maintaining O2 sats in the 90s on 35% Ventimask. Maintained on Levophed. Chest x-ray reporting no significant interval change -persistent prominent interstitial lung markings and pulmonary vascular congestion/pulmonary edema . 24 hour I&O reflecting a positive fluid balance .Minimal urine output, Bumex drip ordered. Diarrhea, tested negative for C. difficile colitis. Bear hugger off.T-max 100.8, normal WBC, tachycardic. Recently removed off the BiPAP and currently on 35% Ventimask, maintaining O2 sats in the 90s. Hemoglobin 17.7, platelets 106, sodium 139, potassium 6.1, BUN 64, creatinine 2.61, total bili 3.4, AST 87, ALT 48, alk phos 80. Objective - Vital Signs Vital signs: Vital Signs Temp 100.6 F H 05/02/21 08:00 Pulse 107 H 05/02/21 08:15 Resp 21 05/02/21 08:15 BP 102/71 05/02/21 08:15 Pulse Ox 97 05/02/21 08:15 Intake & Output 05/01/21 05/02/21 05/02/21 18:59 06:59 18:59 Intake Total 557.128 607.329 40 Output Total 395 190 70 Balance 162.128 417.329 -30 Weight 100.8 kg Intake: IV 240 240 40 0.9 kvo 240 240 40 Intake, IV Titration 317.128 367.329 Amount Norepinephrine 4 mg In 317.128 Sodium Chloride 0.9% 250 ml @ 0.05 MCG/KG/MIN 18. 751 mls/hr IV .[id number] [facility] Rx#:[id number] Norepinephrine 4 mg In 367.329 Sodium Chloride 0.9% 250 ml @ 0.05 MCG/KG/MIN 18. 751 mls/hr IV .[id number] [facility] Rx#:[id number] Output: Urine 395 190 70 Other: Voiding Method Indwelling Catheter Indwelling Catheter # Bowel Movements 1 1 - Exam - Exam GENERAL: Sitting up in bed, arousable, more alert, minimally conversing HEENT: Head is atraumatic, normocephalic. Pupils are equal, round, and reactive to light. Sclerae anicteric. Conjunctivae are clear. Mucus membranes of the mouth are moist. Neck is supple, no JVD. RESPIRATORY: Diminished with Bibasilar crackles. CARDIOVASCULAR: Irregular rate and rhythm. Regular S1 and S2 noted. Positive systolic murmur auscultated. GASTROINTESTINAL: No distention noted. Abdomen soft and round. Normal active bowel sounds auscultated x 4 quadrants. No pain or tenderness noted upon palpation. EXTREMITIES: Chronic venous stasis changes, with deep purple lower extremities, ischemic in appearance, Doppler pulses, weeping, positive edema. NEUROLOGIC: Cranial nerves II-XII intact. PSYCHIATRIC: Awake, alert, and oriented X 2-3. Appropriate affect. Intact judgement and insight. - Labs CBC & Chem 7: 05/02/21 07:05 05/02/21 07:05 Labs: Abnormal Lab Results - Last 24 Hours (Table) 05/01/21 05/01/21 05/01/21 Range/Units 09:33 14:53 16:22 Hgb (13.0-17.5) gm/dL Hct (39.0-53.0) % MCHC (31.0-37.0) g/dL Plt Count (150-450) k/uL Potassium 6.1 H* 5.9 H (3.5-5.1) mmol/L BUN (9-20) mg/dL Creatinine (0.66-1.25) mg/dL POC Glucose (mg/dL) (75-99) mg/dL Plasma Lactic Acid Yakvo 2.4 H* (0.7-2.0) mmol/L Total Bilirubin (0.2-1.3) mg/dL AST (17-59) U/L Total Protein (6.3-8.2) g/dL Albumin (3.5-5.0) g/dL 05/01/21 05/01/21 05/02/21 Range/Units 17:57 23:40 07:05 Hgb 17.7 H (13.0-17.5) gm/dL Hct 57.1 H* (39.0-53.0) % MCHC 30.9 L (31.0-37.0) g/dL Plt Count 106 L (150-450) k/uL Potassium (3.5-5.1) mmol/L BUN (9-20) mg/dL Creatinine (0.66-1.25) mg/dL POC Glucose (mg/dL) 60 L 70 L (75-99) mg/dL Plasma Lactic Acid Yakov (0.7-2.0) mmol/L Total Bilirubin (0.2-1.3) mg/dL AST (17-59) U/L Total Protein (6.3-8.2) g/dL Albumin (3.5-5.0) g/dL 05/02/21 Range/Units 07:05 Hgb (13.0-17.5) gm/dL Hct (39.0-53.0) % MCHC (31.0-37.0) g/dL Plt Count (150-450) k/uL Potassium 6.1 H* (3.5-5.1) mmol/L BUN 64 H (9-20) mg/dL Creatinine 2.64 H (0.66-1.25) mg/dL POC Glucose (mg/dL) (75-99) mg/dL Plasma Lactic Acid Yakov (0.7-2.0) mmol/L Total Bilirubin 3.4 H (0.2-1.3) mg/dL AST 87 H (17-59) U/L Total Protein 6.1 L (6.3-8.2) g/dL Albumin 3.2 L (3.5-5.0) g/dL Assessment and Plan Assessment: Acute cardiogenic shock secondary to Acute diastolic CHF exacerbation. Acute hypoxic respiratory failure, BiPAP dependent Acute renal failure secondary to ATN related to the above, cardiorenal syndrome. Hyperkalemia secondary to the above Moderate to severe aortic stenosis Troponin leak Chronic A. fib on anticoagulation History of CVA 2 Epilepsy , history of, on Keppra with history of Chronic lower extremity venous stasis changes, ischemic appearing Hypertension, history of Hyperlipidemia Plan: Continue on current medication regime ,monitoring and symptomatic treatment. Bumex drip ordered as per Nephrology. Blood cultures, pro-calcitonin ordered.Close monitoring of electrolytes with repeat labs ordered for a.m. vascular consulted regarding lower extremities. ICU management as per network director. Prognosis guarded given multiple complex medical issues. The impression and plan of care has been dictated as directed. : I performed a history and examination of this patient, discussed the same with the dictator. I agree with the dictator's note ,documented as a scribe. Any additional findings or plans will be noted.
--- NOTE | 2021-05-02 16:13 | P.GSCN ---
History of Present Illness Consult date: 05/02/21 History of present illness: Usman is an 81-year-old male who came in the hospital with hypotension and general malaise. He has a past medical history of previous CVA, hypertension, hyperlipidemia, atrial fibrillation on anticoagulation, CHF. He is brought here with increasing weakness and slurred speech and concerns for possible new CVA. Upon initial evaluation he was found to have an O2 saturation of 84%." Stroke was called which showed no significant findings. We were asked to see the patient for evaluation of his bilateral lower extremity coloration changes. His family in the room states that he has had some edema in his lower extremities since his first stroke. This gotten somewhat worse in his left lower extremity. He is able to awake enough to deny any pain in his lower extremities. He is able to move his lower extremities. 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 Pelvic fracture. History of Any Multi-Drug Resistant Organisms: None Reported Additional Past Surgical History / Comment(s): colonoscopy x3, Past Anesthesia/Blood Transfusion Reactions: No Reported Reaction Past Psychological History: No Psychological Hx Reported Smoking Status: Former smoker Past Alcohol Use History: None Reported Past Drug Use History: None Reported - Past Family History Sister(s) Family Medical History: Diabetes Mellitus, Myocardial Infarction (NH) Additional Family Medical History / Comment(s): sister from an NH Mother Family Medical History: No Reported History Additional Family Medical History / Comment(s): multiple sclerosis Son(s) Family Medical History: Hypertension Father Additional Family Medical History / Comment(s): ETOH abuse Medications and Allergies Home Medications Medication Instructions Recorded Confirmed Type Cholecalciferol [Vitamin D3 (25 25 mcg PO DAILY 11/05/15 04/30/21 History Mcg = 1000 Iu)] Multivitamins, Thera [Multivitamin 1 tab PO DAILY 11/05/15 04/30/21 History (formulary)] Apixaban [Eliquis] 5 mg PO BID 01/21/20 04/30/21 History Atorvastatin [Lipitor] 20 mg PO HS 01/21/20 04/30/21 History Furosemide [Lasix] 40 mg PO DAILY 01/21/20 04/30/21 History Metoprolol Tartrate [Lopressor] 25 mg PO BID 01/21/20 04/30/21 History Spironolactone [Aldactone] 25 mg PO BID 01/21/20 04/30/21 History levETIRAcetam [Keppra] 500 mg PO BID 01/21/20 04/30/21 History SILVER sulfADIAZINE Cream 1 applic TOPICAL BID PRN 04/30/21 04/30/21 History [Silvadene 1% Cream] Allergies Allergy/AdvReac Type Severity Reaction Status Date / Time No Known Allergies Allergy Verified 04/30/21 22:18 Surgical - Exam Vital Signs Pulse Resp BP Pulse Ox 84 16 93/34 84 L 04/30/21 20:08 04/30/21 20:08 04/30/21 20:08 04/30/21 20:08 Gen. is a lethargic but pleasant cooperative male in no acute distress. HEENT is normocephalic atraumatic extraocular motion intact. Heart appears irregular. Lungs are clear but diminished. Abdomen is soft, nontender nondistended. He has palpable radial and femoral pulses bilaterally. Weakly palpable right d orsalis pedis. Strongly palpable left dorsalis pedis once the edema is expressed. Multiphasic signals at DP and PT bilaterally. Edematous lower extremities with some coloration changes. Motor sensory intact Results - Labs 05/02/21 07:05 05/02/21 07:05 Abnormal Lab Results - Last 24 Hours (Table) 05/01/21 05/01/21 05/01/21 Range/Units 16:22 17:57 23:40 Hgb (13.0-17.5) gm/dL Hct (39.0-53.0) % MCHC (31.0-37.0) g/dL Plt Count (150-450) k/uL Lymphocytes # (1.0-4.8) k/uL Potassium 5.9 H (3.5-5.1) mmol/L BUN (9-20) mg/dL Creatinine (0.66-1.25) mg/dL POC Glucose (mg/dL) 60 L 70 L (75-99) mg/dL Total Bilirubin (0.2-1.3) mg/dL AST (17-59) U/L Total Protein (6.3-8.2) g/dL Albumin (3.5-5.0) g/dL 05/02/21 05/02/21 05/02/21 Range/Units 07:05 07:05 11:44 Hgb 17.7 H (13.0-17.5) gm/dL Hct 57.1 H* (39.0-53.0) % MCHC 30.9 L (31.0-37.0) g/dL Plt Count 106 L (150-450) k/uL Lymphocytes # 0.4 L (1.0-4.8) k/uL Potassium 6.1 H* (3.5-5.1) mmol/L BUN 64 H (9-20) mg/dL Creatinine 2.64 H (0.66-1.25) mg/dL POC Glucose (mg/dL) 137 H (75-99) mg/dL Total Bilirubin 3.4 H (0.2-1.3) mg/dL AST 87 H (17-59) U/L Total Protein 6.1 L (6.3-8.2) g/dL Albumin 3.2 L (3.5-5.0) g/dL Diabetes panel 05/01/21 05/02/21 Range/Units 16:22 07:05 Sodium 139 (137-145) mmol/L Potassium 5.9 H 6.1 H* (3.5-5.1) mmol/L Chloride 103 (98-107) mmol/L Carbon Dioxide 23 (22-30) mmol/L BUN 64 H (9-20) mg/dL Creatinine 2.64 H (0.66-1.25) mg/dL Glucose 75 (74-99) mg/dL Calcium 9.2 (8.4-10.2) mg/dL AST 87 H (17-59) U/L ALT 48 (4-49) U/L Alkaline Phosphatase 80 (38-126) U/L Total Protein 6.1 L (6.3-8.2) g/dL Albumin 3.2 L (3.5-5.0) g/dL Calcium panel 05/02/21 Range/Units 07:05 Calcium 9.2 (8.4-10.2) mg/dL Albumin 3.2 L (3.5-5.0) g/dL Pituitary panel 05/01/21 05/02/21 Range/Units 16:22 07:05 Sodium 139 (137-145) mmol/L Potassium 5.9 H 6.1 H* (3.5-5.1) mmol/L Chloride 103 (98-107) mmol/L Carbon Dioxide 23 (22-30) mmol/L BUN 64 H (9-20) mg/dL Creatinine 2.64 H (0.66-1.25) mg/dL Glucose 75 (74-99) mg/dL Calcium 9.2 (8.4-10.2) mg/dL Adrenal panel 05/01/21 05/02/21 Range/Units 16:22 07:05 Sodium 139 (137-145) mmol/L Potassium 5.9 H 6.1 H* (3.5-5.1) mmol/L Chloride 103 (98-107) mmol/L Carbon Dioxide 23 (22-30) mmol/L BUN 64 H (9-20) mg/dL Creatinine 2.64 H (0.66-1.25) mg/dL Glucose 75 (74-99) mg/dL Calcium 9.2 (8.4-10.2) mg/dL Total Bilirubin 3.4 H (0.2-1.3) mg/dL AST 87 H (17-59) U/L ALT 48 (4-49) U/L Alkaline Phosphatase 80 (38-126) U/L Total Protein 6.1 L (6.3-8.2) g/dL Albumin 3.2 L (3.5-5.0) g/dL Assessment and Plan Assessment: Lower extremity edema Coloration changes to the lower extremities Hyperkalemia Hypotension on pressor support Plan: At this point I don't believe there is any acute arterial issue with a lower extremities. He maintains a palpable left dorsalis pedis pulse with multiphasic appearing signals bilateral lower extremities. He is motor sensory intact. At this point he may have compression and elevation of his lower extremities. Continue supportive care.
[2021-05-02 17:19] LABS: Glucose,Whole Blood 158 mg/dL (75-99)
[2021-05-02 23:57] LABS: Glucose,Whole Blood 136 mg/dL (75-99)
[2021-05-03] MEDS: NOREPINEPHRINE 4 MG in SODIUM CHLORIDE 0.9% 250 ML IV SCH ×4 (00:14→23:02)
[2021-05-03] MEDS: AMPICILLIN-SULBACTAM 1.5 GM in SODIUM CHLORIDE 0.9% 50 ML IVPB SCH ×3 (00:16→16:20)
[2021-05-03] MEDS: BUMETANIDE 10 MG in DEXTROSE 5% IN WATER 60 ML IV SCH ×2 (04:09)
[2021-05-03 04:44] LABS: HGB 17.5 gm/dL (13.0-17.5); Hypochromasia Moderate; MCH 29.9 pg (25.0-35.0); MCV 96.5 fL (80.0-100.0); Mean Platelet Volume 10.7; RBC 5.84 m/uL (4.30-5.90); RDW 15.2 % (11.5-15.5); WBC 7.3 k/uL (3.8-10.6)
[2021-05-03 04:50] LABS: HCT 56.4 % (39.0-53.0)
[2021-05-03 05:03] LABS: Calcium 8.5 mg/dL (8.4-10.2); Total Bilirubin 3.1 mg/dL (0.2-1.3); Total Protein 5.8 g/dL (6.3-8.2)
[2021-05-03 05:14] LABS: Magnesium 2.2 mg/dL (1.6-2.3); Potassium 4.7 mmol/L (3.5-5.1)
[2021-05-03 05:18] LABS: Band Neutrophils % 27 %; Lymphocytes # (M) 0.15 k/uL (1.0-4.8); Monocytes # (M) 0.95 k/uL (0-1.0); Neutrophils % (M) 58 %; Nucleated Red Blood Cells 0 /100 WBC (0-0); Total Cells Counted 200
[2021-05-03 05:19] LABS: Anisocytosis (M) Present; Ovalocytes Present; Platelet Count 96 k/uL (150-450); Poikilocytosis (M) Present
[2021-05-03 07:54] LABS: Glucose,Whole Blood 129 mg/dL (75-99)
--- NOTE | 2021-05-03 08:42 | XR ---
EXAMINATION TYPE: XR chest 1V portable DATE OF EXAM: 05/03/2021 COMPARISON: X-ray dated 05/02/2021 HISTORY: CHF TECHNIQUE: Single frontal view of the chest is obtained. FINDINGS: Interval progression of the signs suggestive of pulmonary edema with more prominent pulmonary vascula ture, more prominent interstitial lung markings, slightly larger right pleural effusion and markedly increased cardiac transverse diameter with possible associated pericardial effusion. More alveolar op acities are seen in the mid and lower lung zones. Aortic atherosclerotic calcifications. Unchanged ri ght PICC line. IMPRESSION: Worsening signs of pulmonary edema/CHF as described above. Associated infection cannot be excluded.
[2021-05-03] MEDS: IPRATROPIUM-ALBUTEROL 3 ML NEB INHALATION SCH ×4 (08:49→19:31)
--- NOTE | 2021-05-03 08:56 | P.PN ---
Subjective Patient is seen in follow for acute kidney injury. He is maintained on Bumex drip. Nonoliguric. On Levophed. On 3 L nasal cannula. Potassium level now normal. Oral intake improving but has to be fed. Vital signs are stable. On Levophed. HEENT: On nasal cannula. LUNGS: Breath sounds decreased. HEART: Tachycardic. ABDOMEN: Soft, no distention. EXTREMITITES: Trace edema. Objective - Vital Signs Vital signs: Vital Signs Temp 98.8 F 05/03/21 08:00 Pulse 115 H 05/03/21 08:00 Resp 19 05/03/21 08:00 BP 128/94 05/03/21 08:00 Pulse Ox 98 05/03/21 08:00 Intake & Output 05/02/21 05/03/21 05/03/21 18:59 06:59 18:59 Intake Total 123.600 4943.567 288.012 Output Total 1145 1875 365 Balance -397.000 -827.433 -76.988 Weight 100 kg Intake: IV 240 240 40 0.9 kvo 240 240 40 Intake, IV Titration 508.000 807.567 248.012 Amount Bumetanide 10 mg In 81.917 Dextrose 5% in Water 60 ml @ 0.5 MG/HR 5 mls/hr IV .Q20H [facility] Rx#: [id number] Norepinephrine 4 mg In 508.000 725.650 248.012 Sodium Chloride 0.9% 250 ml @ 0.05 MCG/KG/MIN 18. 751 mls/hr IV .[id number] [facility] Rx#:[id number] Output: Urine 1145 1875 365 Other: Voiding Method Indwelling Catheter Indwelling Catheter # Bowel Movements 1 - Labs CBC & Chem 7: 05/03/21 04:30 05/03/21 04:30 Labs: Abnormal Lab Results - Last 24 Hours (Table) 05/02/21 05/02/21 05/02/21 Range/Units 07:05 07:05 11:44 Hct (39.0-53.0) % Plt Count (150-450) k/uL Lymphocytes # 0.4 L (1.0-4.8) k/uL Lymphocytes # (Manual) (1.0-4.8) k/uL Potassium (3.5-5.1) mmol/L BUN (9-20) mg/dL Creatinine (0.66-1.25) mg/dL Glucose (74-99) mg/dL POC Glucose (mg/dL) 137 H (75-99) mg/dL Total Bilirubin (0.2-1.3) mg/dL AST (17-59) U/L Total Protein (6.3-8.2) g/dL Albumin (3.5-5.0) g/dL Procalcitonin 0.53 H (0.02-0.09) ng/mL 05/02/21 05/02/21 05/02/21 Range/Units 15:24 17:16 23:56 Hct (39.0-53.0) % Plt Count (150-450) k/uL Lymphocytes # (1.0-4.8) k/uL Lymphocytes # (Manual) (1.0-4.8) k/uL Potassium 5.5 H (3.5-5.1) mmol/L BUN (9-20) mg/dL Creatinine (0.66-1.25) mg/dL Glucose (74-99) mg/dL POC Glucose (mg/dL) 158 H 136 H (75-99) mg/dL Total Bilirubin (0.2-1.3) mg/dL AST (17-59) U/L Total Protein (6.3-8.2) g/dL Albumin (3.5-5.0) g/dL Procalcitonin (0.02-0.09) ng/mL 05/03/21 05/03/21 05/03/21 Range/Units 04:30 04:30 07:53 Hct 56.4 H (39.0-53.0) % Plt Count 96 L (150-450) k/uL Lymphocytes # (1.0-4.8) k/uL Lymphocytes # (Manual) 0.15 L (1.0-4.8) k/uL Potassium (3.5-5.1) mmol/L BUN 62 H (9-20) mg/dL Creatinine 2.23 H (0.66-1.25) mg/dL Glucose 210 H (74-99) mg/dL POC Glucose (mg/dL) 129 H (75-99) mg/dL Total Bilirubin 3.1 H (0.2-1.3) mg/dL AST 62 H (17-59) U/L Total Protein 5.8 L (6.3-8.2) g/dL Albumin 3.0 L (3.5-5.0) g/dL Procalcitonin (0.02-0.09) ng/mL Assessment and Plan Plan: Assessment: 1. Acute kidney injury secondary to ATN secondary to hypotension, cardiorenal syndrome and component of contrast-induced acute kidney injury. Patient received IV contrast on 04/30/2021. Renal function little better. Creatinine 2.23 today. Nonoliguric. No hydronephrosis and kidney ultrasound. 2. Chronic kidney disease stage III. Baseline creatinine in the range of 1.3- 1.6. Etiology is nephrosclerosis. 3. Hyperkalemia secondary to acute kidney injury and spironolactone. Improved. 4. Volume overload. Improving with diuresis. 5. Acute hypoxic respiratory failure. 6. Acute on chronic diastolic CHF and mild to moderate mitral and tricuspid regurgitation. 7. History of CVA. 8. A. fib. On anticoagulation. Plan: Maintain Bumex drip. Wean FiO2 and vasopressors. Avoid nephrotoxins. Continue to monitor renal function and urine output.
[2021-05-03] MEDS: levETIRAcetam 500 MG TAB PO SCH ×2 (09:44→21:36)
[2021-05-03] MEDS: APIXABAN 5 MG TAB PO SCH ×2 (09:44→21:36)
[2021-05-03] MEDS: PANTOPRAZOLE 40 MG/10 ML VIAL IV SCH (09:44)
--- NOTE | 2021-05-03 10:24 | P.PN ---
Subjective Progress Note Date: 05/03/21 This is an 81-year-old male patient with a known history of congestive heart failure, CVA/TIA, hypertension, hyperlipidemia, chronic atrial fibrillation anticoagulated with Eliquis, epilepsy maintained on Keppra, previous ventilatory dependent respiratory failure secondary to CHF. He was brought into the emergency room by EMS yesterday with generalized weakness and slurred speech. Initially a code stroke was called. Computed tomography scan of the brain did not reveal any acute abnormalities. CT angiogram of the head and neck revealed no evidence of intracranial hemodynamic stenosis. His NIH score was 2. Carotid Dopplers were suboptimal but no hemodynamically significant stenosis noted. He was felt to be more in a cardiogenic shock state. X-ray revealed significant pulmonary edema. Blunting of the right costophrenic angle. Congestive heart failure with a right pleural effusion. EKG revealed atrial fibrillation with a right bundle-branch block. Review his echocardiogram revealed preserved left ventricular systolic function. There is noted moderate to severe aortic stenosis. He was placed on BiPAP currently 14/7 and 80% FiO2 with O2 saturations in the mid 90s. He does have chronic edema and vascular changes of the lower extremities. He is arousable. White count 7.9. Hemoglobin 17.8. Sodium 135. Potassium 6.8. BUN 60. Creatinine 2.45. Glucose 63. Troponin 0.045. AST 117. ALT 52. The patient is seen today 05/02/20212017 in follow-up in the intensive care unit. He was taken off the BiPAP earlier this morning and is currently on 35% Ventimask. He is awake. Alert. He drifts off easily still. He has had issues with loose stools. C. difficile screen is negative. Lactic acid levels have trended down. As of a temperature 100.6. Chest x-ray continues to show some evidence of fluid volume overload. He is requiring norepinephrine at 0.1 mcg/kg/m. He's been initiated on Bumex drip at 0.5 mg per hour per nephrology. He is anticoagulated with Eliquis. White count 8.9. Hemoglobin 17.7. Platelet count 106,000. Sodium 139. Potassium 6.1. BUN 64. Creatinine 2.64. AST 87. ALT 48. Currently in a +270 balance. He continues with Doppler pulses in lower extremities. Still with significant vascular changes mostly chronic possibly an acute component. The patient is seen today 05/03/2021 in follow-up in the intensive care unit. He is currently sitting up in bed. Awake and alert in no acute distress. He is maintaining O2 saturations in the 90s on 3 L/m per nasal cannula. Chest x-ray showing some worsening signs of pulmonary edema/CHF. He continues to diurese well and is currently in a -336 mL balance. His weight is 100 kg. White count 7.3. Hemoglobin 17.5. Platelet count 96,000. Sodium 138. Potassium 4.7. BUN 62. Creatinine 2.23. Glucose 210. Serum cortisol level was 46. Pro- calcitonin 0.53. He remains on Unasyn. He is continued on bronchodilators. Anticoagulated with Eliquis. He is continued on a Bumex drip at 0.5 mg per hour. Still requiring a small amount of norepinephrine at 0.14 mcg/kg/m. Normal saline at 20 mL per hour. He continues to have some lower extremity edema. He has a positive murmur. Objective - Vital Signs Vital signs: Vital Signs Temp 98.8 F 05/03/21 08:00 Pulse 108 H 05/03/21 10:00 Resp 18 05/03/21 10:00 BP 109/82 05/03/21 10:00 Pulse Ox 97 05/03/21 10:00 Intake & Output 05/02/21 05/03/21 05/03/21 18:59 06:59 18:59 Intake Total 615.377 8849.567 369.265 Output Total 1145 1875 815 Balance -397.000 -827.433 -445.735 Weight 100 kg Intake: IV 240 240 80 0.9 kvo 240 240 80 Intake, IV Titration 508.000 807.567 289.265 Amount Bumetanide 10 mg In 81.917 Dextrose 5% in Water 60 ml @ 0.5 MG/HR 5 mls/hr IV .Q20H [facility] Rx#: [id number] Norepinephrine 4 mg In 508.000 725.650 289.265 Sodium Chloride 0.9% 250 ml @ 0.05 MCG/KG/MIN 18. 751 mls/hr IV .[id number] [facility] Rx#:[id number] Output: Urine 1145 1875 815 Other: Voiding Method Indwelling Catheter Indwelling Catheter # Bowel Movements 1 - Exam GENERAL EXAM: Alert, 81-year-old male patient, on 3 L/m per nasal cannula, fairly comfortable in no apparent distress. HEAD: Normocephalic. EYES: Normal reaction of pupils, equal size. NOSE: Clear with pink turbinates. THROAT: No erythema or exudates. NECK: No masses, no JVD. CHEST: No chest wall deformity. LUNGS: Equal air entry with crackles in the bilateral bases. CVS: S1 and S2 normal with an audible murmur, irregular rhythm. ABDOMEN: No hepatosplenomegaly, normal bowel sounds, no guarding or rigidity. SPINE: No scoliosis or deformity SKIN: No rashes CENTRAL NERVOUS SYSTEM: No focal deficits, tone is normal in all 4 extremities. EXTREMITIES: Changes of chronic venous stasis. There is some additional redness possibly acute changes as well. There is 1+ peripheral edema. Doppler pulses. - Labs CBC & Chem 7: 05/03/21 04:30 05/03/21 04:30 Labs: Abnormal Lab Results - Last 24 Hours (Table) 05/02/21 05/02/21 05/02/21 Range/Units 07:05 11:44 15:24 Hct (39.0-53.0) % Plt Count (150-450) k/uL Lymphocytes # (Manual) (1.0-4.8) k/uL Potassium 5.5 H (3.5-5.1) mmol/L BUN (9-20) mg/dL Creatinine (0.66-1.25) mg/dL Glucose (74-99) mg/dL POC Glucose (mg/dL) 137 H (75-99) mg/dL Total Bilirubin (0.2-1.3) mg/dL AST (17-59) U/L Total Protein (6.3-8.2) g/dL Albumin (3.5-5.0) g/dL Procalcitonin 0.53 H (0.02-0.09) ng/mL 05/02/21 05/02/21 05/03/21 Range/Units 17:16 23:56 04:30 Hct 56.4 H (39.0-53.0) % Plt Count 96 L (150-450) k/uL Lymphocytes # (Manual) 0.15 L (1.0-4.8) k/uL Potassium (3.5-5.1) mmol/L BUN (9-20) mg/dL Creatinine (0.66-1.25) mg/dL Glucose (74-99) mg/dL POC Glucose (mg/dL) 158 H 136 H (75-99) mg/dL Total Bilirubin (0.2-1.3) mg/dL AST (17-59) U/L Total Protein (6.3-8.2) g/dL Albumin (3.5-5.0) g/dL Procalcitonin (0.02-0.09) ng/mL 05/03/21 05/03/21 Range/Units 04:30 07:53 Hct (39.0-53.0) % Plt Count (150-450) k/uL Lymphocytes # (Manual) (1.0-4.8) k/uL Potassium (3.5-5.1) mmol/L BUN 62 H (9-20) mg/dL Creatinine 2.23 H (0.66-1.25) mg/dL Glucose 210 H (74-99) mg/dL POC Glucose (mg/dL) 129 H (75-99) mg/dL Total Bilirubin 3.1 H (0.2-1.3) mg/dL AST 62 H (17-59) U/L Total Protein 5.8 L (6.3-8.2) g/dL Albumin 3.0 L (3.5-5.0) g/dL Procalcitonin (0.02-0.09) ng/mL Assessment and Plan Assessment: 1 Acute hypoxemic respiratory failure secondary to an acute exacerbation of suspected diastolic congestive heart failure. Echocardiogram revealed preserved left ventricular systolic function 2 Acute cardiogenic shock secondary to diastolic congestive heart failure 3 Acute renal failure secondary to above 4 Acute hyperkalemia secondary to above 5 Febrile illness currently 100.6, pro calcitonin 0.53, initiated on Unasyn 6 Moderate to severe aortic stenosis 7 Chronic atrial fibrillation, anticoagulants with Eliquis 8 History of diastolic congestive heart failure 9 History of chronic lower extremity edema with changes of chronic venous stasis 10 History of epilepsy following a CVA, maintained on Keppra 11 History of CVA 12 History of hypertension 13 Hyperlipidemia 14 History of prostate cancer status post radiation Plan: The patient was seen and evaluated Chest x-ray and labs reviewed Continued on a Bumex drip per nephrology We'll continue to titrate down the norepinephrine as tolerated Continue Unasyn today Pro calcitonin 0.53 Cortisol level XLVI Anticoagulated with Eliquis Titrate the FiO2 as tolerated We will continue to follow I, the cosigning physician, performed a history & physical examination of the patient. Lungs sounds with crackles in the bilateral bases. Maintaining O2 saturations in the 90s on 3 L/m per nasal cannula. I discussed the assessment and plan of care with my nurse practitioner, Chelle Becerra. I attest to the above note as dictated by her. I have personally seen and examined the patient, performed the documentation and the assessment and plan as written. Number of minutes spent on the visit: 10.
[2021-05-03 10:47] LABS: Glucose,Whole Blood 175 mg/dL (75-99)
[2021-05-03] MEDS: AMIODARONE 200 MG TAB PO SCH ×2 (11:52→21:36)
--- NOTE | 2021-05-03 13:34 | P.PN ---
Subjective Progress Note Date: 05/03/21 History of present illness: This is a 81-year-old gentleman with history of diastolic CHF, previous CVA, hypertension, hyperlipidemia and also chronic atrial fibrillation was brought to the hospital with complaints of rather abrupt onset of weakness and slurred speech with a suspicion for CVA. Initially "stroke was initiated. Apparently patient was hypotensive on arrival. Computed tomography scan of the brain did not reveal any acute abnormalities. CT angiogram the head and neck revealed no evidence of intracranial hemodynamics stenosis. His NIH score was 2. Carotid d uplex study was suboptimal but no significant stenosis noted. A chest x-ray showed evidence of CHF and possible bibasilar infiltrates. His echocardiogram showed preserved LV function with evidence of possible moderate to severe aortic stenosis. The echocardiographic studies done over the last several years have shown varying gradient across the aortic valve. Patient's creatinine was high, computed to the previous admissions size to acute renal failure associated with hyperkalemia. Patient was on Lasix 40 mg and also Aldactone 25 mg by mouth twice a day at home. His potassium is high. His urine output has been low. Patient has been hypotensive and has been on Levophed. Patient also on anticoagulation therapy at home. Patient is awake and responds to verbal stimuli. His BUN is 60, creatinine is 2.45. Renal consult is initiated. The picture could be consistent with a diastolic CHF though concomitant pneumonia and sepsis cannot be excluded. I will initiate on IV Lasix drip and await further recommendations of the supply chain business analyst. Hold off Aldactone. His troponin values are mildly elevated but not consistent with acute myocardial injury pattern. His EKG showed atrial fibrillation with a right bundle-branch block without any acute changes. Further recommendations depend upon clinical course. 05/02/2021: This patient seemed to be little more stable. Still on vasopressors for the blood pressure. Patient seemed to be awake but sleepy. He was able to take in his his . His urine output has been slow. A chest x-ray showed some improvement. His kidney function remained stable, but potassium is high. Nephrology is following and correcting potassium levels. Patient is initiated on IV Bumex. Patient also has a dusky ischemic-looking feet. Also having mild fevers. Patient is going to have a calcitonin and also blood cultures. Patient will continue current management. Collar for possible underlying sepsis. Prognosis is guarded. We will follow. 05/03/2021: Patient seemed to be a little more alert. Still looks frail and weak, Denies any chest pain or shortness of breath. on small dose of Levophed and maintaining systolic blood pressure of about 110. Patient is in atrial fibrillation with moderately rapid ventricular response. We're going to start him on oral amiodarone 200 mg by mouth twice a day. Is on IV Bumex and seemed to be having reasonably and output. His creatinine has shown some improvement. Potassium levels are normal. Lungs show diminished breath sounds. Heart systolic murmur heard. Chest x-ray showed signs of CHF and pleural effusion. We'll continue current management except adding oral amiodarone Objective - Vital Signs Vital signs: Vital Signs Temp 97.7 F 05/03/21 12:00 Pulse 98 05/03/21 13:00 Resp 12 05/03/21 13:00 BP 102/64 05/03/21 13:00 Pulse Ox 93 L 05/03/21 13:00 Intake & Output 05/02/21 05/03/21 05/03/21 18:59 06:59 18:59 Intake Total 076.291 0367.567 679.265 Output Total 1145 1875 1485 Balance -397.000 -827.433 -805.735 Weight 100 kg Intake: IV 240 240 140 0.9 kvo 240 240 140 Intake, IV Titration 508.000 807.567 289.265 Amount Bumetanide 10 mg In 81.917 Dextrose 5% in Water 60 ml @ 0.5 MG/HR 5 mls/hr IV .Q20H [facility] Rx#: [id number] Norepinephrine 4 mg In 508.000 725.650 289.265 Sodium Chloride 0.9% 250 ml @ 0.05 MCG/KG/MIN 18. 751 mls/hr IV .[id number] [facility] Rx#:[id number] Oral 250 Output: Urine 1145 1875 1485 Other: Voiding Method Indwelling Catheter Indwelling Catheter Indwelling Catheter # Bowel Movements 1 - Exam GENERAL EXAM: Patient is sleepy but arousable HEENT: Normocephalic. Normal reaction of pupils, equal size, normal range of extraocular motion. No erythema or exudates in the throat. NECK: No masses, no nuchal rigidity. CHEST: No chest wall deformity. LUNGS: Diminished breath sounds HEART: S1 and S2 normal . A stent heart sounds, systolic murmur present ABDOMEN: Soft SKIN: No rashes CENTRAL NERVOUS SYSTEM: No focal deficits. EXTREMITIES: Dusky and dark looking rule out ischemia - Labs CBC & Chem 7: 05/03/21 04:30 05/03/21 04:30 Labs: Abnormal Lab Results - Last 24 Hours (Table) 05/02/21 05/02/21 05/02/21 Range/Units 07:05 15:24 17:16 Hct (39.0-53.0) % Plt Count (150-450) k/uL Lymphocytes # (Manual) (1.0-4.8) k/uL Potassium 5.5 H (3.5-5.1) mmol/L BUN (9-20) mg/dL Creatinine (0.66-1.25) mg/dL Glucose (74-99) mg/dL POC Glucose (mg/dL) 158 H (75-99) mg/dL Total Bilirubin (0.2-1.3) mg/dL AST (17-59) U/L Total Protein (6.3-8.2) g/dL Albumin (3.5-5.0) g/dL Procalcitonin 0.53 H (0.02-0.09) ng/mL 05/02/21 05/03/21 05/03/21 Range/Units 23:56 04:30 04:30 Hct 56.4 H (39.0-53.0) % Plt Count 96 L (150-450) k/uL Lymphocytes # (Manual) 0.15 L (1.0-4.8) k/uL Potassium (3.5-5.1) mmol/L BUN 62 H (9-20) mg/dL Creatinine 2.23 H (0.66-1.25) mg/dL Glucose 210 H (74-99) mg/dL POC Glucose (mg/dL) 136 H (75-99) mg/dL Total Bilirubin 3.1 H (0.2-1.3) mg/dL AST 62 H (17-59) U/L Total Protein 5.8 L (6.3-8.2) g/dL Albumin 3.0 L (3.5-5.0) g/dL Procalcitonin (0.02-0.09) ng/mL 05/03/21 05/03/21 Range/Units 07:53 10:45 Hct (39.0-53.0) % Plt Count (150-450) k/uL Lymphocytes # (Manual) (1.0-4.8) k/uL Potassium (3.5-5.1) mmol/L BUN (9-20) mg/dL Creatinine (0.66-1.25) mg/dL Glucose (74-99) mg/dL POC Glucose (mg/dL) 129 H 175 H (75-99) mg/dL Total Bilirubin (0.2-1.3) mg/dL AST (17-59) U/L Total Protein (6.3-8.2) g/dL Albumin (3.5-5.0) g/dL Procalcitonin (0.02-0.09) ng/mL Microbiology - Last 24 Hours (Table) 05/02/21 09:49 Blood Culture - Preliminary Blood No Growth after 24 hours 05/02/21 09:51 Blood Culture - Preliminary Blood No Growth after 24 hours Assessment and Plan (1) Acute renal failure Current Visit: Yes Status: Acute Code(s): N17.9 - ACUTE KIDNEY FAILURE, UNSPECIFIED SNOMED Code(s): 94220711 (2) Acute hypoxemic respiratory failure Current Visit: Yes Status: Acute Code(s): J96.01 - ACUTE RESPIRATORY FAILURE WITH HYPOXIA SNOMED Code(s): 243747847 (3) Atrial fibrillation Current Visit: No Status: Acute Code(s): I48.91 - UNSPECIFIED ATRIAL FIBRILLATION SNOMED Code(s): 61597493 (4) CVA (cerebral vascular accident) Current Visit: No Status: Acute Code(s): I63.9 - CEREBRAL INFARCTION, UNSPECIFIED SNOMED Code(s): 492541660 (5) Hyperkalemia Current Visit: Yes Status: Acute Code(s): E87.5 - HYPERKALEMIA SNOMED Code(s): 34843021 (6) Diastolic CHF Current Visit: Yes Status: Acute Code(s): I50.30 - UNSPECIFIED DIASTOLIC (CONGESTIVE) HEART FAILURE SNOMED Code(s): 164477096 Plan: Showing some improvement compared to yesterday. His mentation is more stable and able to respond appropriately to commands. Denies any chest pain. Renal functions show some improvement. Urine output is fair. Continue IV diuretic and rest of the medication. Add oral amiodarone for better control of heart rate
--- NOTE | 2021-05-03 14:01 | P.PN ---
Subjective Progress Note Date: 05/03/21 Patient is examined. No complaints. No lower extremity pain. Motor sensory intact. Objective - Vital Signs Vital signs: Vital Signs Temp 97.7 F 05/03/21 12:00 Pulse 98 05/03/21 13:00 Resp 12 05/03/21 13:00 BP 102/64 05/03/21 13:00 Pulse Ox 93 L 05/03/21 13:00 Intake & Output 05/02/21 05/03/21 05/03/21 18:59 06:59 18:59 Intake Total 988.374 9935.567 679.265 Output Total 1145 1875 1485 Balance -397.000 -827.433 -805.735 Weight 100 kg Intake: IV 240 240 140 0.9 kvo 240 240 140 Intake, IV Titration 508.000 807.567 289.265 Amount Bumetanide 10 mg In 81.917 Dextrose 5% in Water 60 ml @ 0.5 MG/HR 5 mls/hr IV .Q20H [facility] Rx#: [id number] Norepinephrine 4 mg In 508.000 725.650 289.265 Sodium Chloride 0.9% 250 ml @ 0.05 MCG/KG/MIN 18. 751 mls/hr IV .[id number] [facility] Rx#:[id number] Oral 250 Output: Urine 1145 1875 1485 Other: Voiding Method Indwelling Catheter Indwelling Catheter Indwelling Catheter # Bowel Movements 1 - Exam Pleasant cooperative more alert male in no acute distress. No respiratory distress. Abdomen is soft, nontender nondistended. Extremities still with coloration changes. Adequate capillary refill. Swelling is improved. No pain. Motor sensory intact. - Labs CBC & Chem 7: 05/03/21 04:30 05/03/21 04:30 Labs: Abnormal Lab Results - Last 24 Hours (Table) 05/02/21 05/02/21 05/02/21 Range/Units 07:05 15:24 17:16 Hct (39.0-53.0) % Plt Count (150-450) k/uL Lymphocytes # (Manual) (1.0-4.8) k/uL Potassium 5.5 H (3.5-5.1) mmol/L BUN (9-20) mg/dL Creatinine (0.66-1.25) mg/dL Glucose (74-99) mg/dL POC Glucose (mg/dL) 158 H (75-99) mg/dL Total Bilirubin (0.2-1.3) mg/dL AST (17-59) U/L Total Protein (6.3-8.2) g/dL Albumin (3.5-5.0) g/dL Procalcitonin 0.53 H (0.02-0.09) ng/mL 05/02/21 05/03/21 05/03/21 Range/Units 23:56 04:30 04:30 Hct 56.4 H (39.0-53.0) % Plt Count 96 L (150-450) k/uL Lymphocytes # (Manual) 0.15 L (1.0-4.8) k/uL Potassium (3.5-5.1) mmol/L BUN 62 H (9-20) mg/dL Creatinine 2.23 H (0.66-1.25) mg/dL Glucose 210 H (74-99) mg/dL POC Glucose (mg/dL) 136 H (75-99) mg/dL Total Bilirubin 3.1 H (0.2-1.3) mg/dL AST 62 H (17-59) U/L Total Protein 5.8 L (6.3-8.2) g/dL Albumin 3.0 L (3.5-5.0) g/dL Procalcitonin (0.02-0.09) ng/mL 05/03/21 05/03/21 Range/Units 07:53 10:45 Hct (39.0-53.0) % Plt Count (150-450) k/uL Lymphocytes # (Manual) (1.0-4.8) k/uL Potassium (3.5-5.1) mmol/L BUN (9-20) mg/dL Creatinine (0.66-1.25) mg/dL Glucose (74-99) mg/dL POC Glucose (mg/dL) 129 H 175 H (75-99) mg/dL Total Bilirubin (0.2-1.3) mg/dL AST (17-59) U/L Total Protein (6.3-8.2) g/dL Albumin (3.5-5.0) g/dL Procalcitonin (0.02-0.09) ng/mL Microbiology - Last 24 Hours (Table) 05/02/21 09:49 Blood Culture - Preliminary Blood No Growth after 24 hours 05/02/21 09:51 Blood Culture - Preliminary Blood No Growth after 24 hours Assessment and Plan Assessment: Lower extremity edema Coloration changes to the lower extremities Hyperkalemia Hypotension Plan: Continue with compression and elevation of his lower extremities. Continue supportive care. No plans for any vascular intervention or evaluation workup. We will sign off at this time. Please let us know if we can be of further assistance
--- NOTE | 2021-05-03 15:47 | P.PN ---
Subjective Progress Note Date: 05/03/21 Principal diagnosis: Acute hypoxemic respiratory failure secondary to an acute exacerbation of suspected diastolic congestive heart failure Acute cardiogenic shock secondary to diastolic congestive heart failure Acute renal failure 81-year-old male patient with a known history of congestive heart failure, CVA/TIA, hypertension, hyperlipidemia, chronic atrial fibrillation anticoagulated with Eliquis, epilepsy maintained on Keppra, previous ventilatory dependent respiratory failure secondary to CHF. He was brought into the emergency room by EMS yesterday with generalized weakness and slurred speech. Initially a code stroke was called. Computed tomography scan of the brain did not reveal any acute abnormalities. CT angiogram of the head and neck revealed no evidence of intracranial hemodynamic stenosis. His NIH score was 2. Carotid Dopplers were suboptimal but no hemodynamically significant stenosis noted. He was felt to be more in a cardiogenic shock state. X-ray revealed significant pulmonary edema. Blunting of the right costophrenic angle. Congestive heart failure with a right pleural effusion. EKG revealed atrial fibrillation with a right bundle-branch block. Review his echocardiogram revealed preserved left ventricular systolic function. There is noted moderate to severe aortic stenosis. He was placed on BiPAP currently 14/7 and 80% FiO2 with O2 saturations in the mid 90s. He does have chronic edema and vascular changes of the lower extremities. He is arousable. White count 7.9. Hemoglobin 17.8. Sodium 135. Potassium 6.8. BUN 60. Creatinine 2.45. Glucose 63. Troponin 0.045. AST 117. ALT 52. 05/03/2021 Patient is seen and evaluated in follow-up; patient's family at bedside. Awake and alert in no acute distress. He is maintaining O2 saturations in the 90s on 3 L/m per nasal cannula. Chest x-ray showing some worsening signs of pulmonary edema/CHF. White count 7.3. Hemoglobin 17.5. Platelet count 96,000. Sodium 138. Potassium 4.7. BUN 62. Creatinine 2.23. Glucose 210. Serum cortisol level was 46. Pro-calcitonin 0.53. Patient remains on Unasyn, bronchodilators, Eliquis. He is continued on a Bumex drip at 0.5 mg per hour. Still requiring a small amount of norepinephrine at 0.14 mcg/kg/m. Normal saline at 20 mL per hour. He continues to have some l ower extremity edema. Objective - Vital Signs Vital signs: Vital Signs Temp 98.8 F 05/03/21 08:00 Pulse 114 H 05/03/21 11:00 Resp 16 05/03/21 11:00 BP 103/63 05/03/21 11:00 Pulse Ox 95 05/03/21 11:00 Intake & Output 05/02/21 05/03/21 05/03/21 18:59 06:59 18:59 Intake Total 604.487 9543.567 639.265 Output Total 1145 1875 1115 Balance -397.000 -827.433 -475.735 Weight 100 kg Intake: IV 240 240 100 0.9 kvo 240 240 100 Intake, IV Titration 508.000 807.567 289.265 Amount Bumetanide 10 mg In 81.917 Dextrose 5% in Water 60 ml @ 0.5 MG/HR 5 mls/hr IV .Q20H [facility] Rx#: [id number] Norepinephrine 4 mg In 508.000 725.650 289.265 Sodium Chloride 0.9% 250 ml @ 0.05 MCG/KG/MIN 18. 751 mls/hr IV .[id number] [facility] Rx#:[id number] Oral 250 Output: Urine 1145 1875 1115 Other: Voiding Method Indwelling Catheter Indwelling Catheter Indwelling Catheter # Bowel Movements 1 - Exam GENERAL EXAM: Alert, 81-year-old male patient, on 3 L/m per nasal cannula, fairly comfortable in no apparent distress. HEAD: Normocephalic. EYES: Normal reaction of pupils, equal size. NECK: No masses, no JVD. CHEST: No chest wall deformity. LUNGS: Equal air entry with crackles in the bilateral bases. CVS: S1 and S2 normal with an audible murmur, irregular rhythm. ABDOMEN: No hepatosplenomegaly, normal bowel sounds, no guarding or rigidity. CENTRAL NERVOUS SYSTEM: No focal deficits, tone is normal in all 4 extremities. - Labs CBC & Chem 7: 05/03/21 04:30 05/03/21 04:30 Labs: Abnormal Lab Results - Last 24 Hours (Table) 05/02/21 05/02/21 05/02/21 Range/Units 07:05 15:24 17:16 Hct (39.0-53.0) % Plt Count (150-450) k/uL Lymphocytes # (Manual) (1.0-4.8) k/uL Potassium 5.5 H (3.5-5.1) mmol/L BUN (9-20) mg/dL Creatinine (0.66-1.25) mg/dL Glucose (74-99) mg/dL POC Glucose (mg/dL) 158 H (75-99) mg/dL Total Bilirubin (0.2-1.3) mg/dL AST (17-59) U/L Total Protein (6.3-8.2) g/dL Albumin (3.5-5.0) g/dL Procalcitonin 0.53 H (0.02-0.09) ng/mL 05/02/21 05/03/21 05/03/21 Range/Units 23:56 04:30 04:30 Hct 56.4 H (39.0-53.0) % Plt Count 96 L (150-450) k/uL Lymphocytes # (Manual) 0.15 L (1.0-4.8) k/uL Potassium (3.5-5.1) mmol/L BUN 62 H (9-20) mg/dL Creatinine 2.23 H (0.66-1.25) mg/dL Glucose 210 H (74-99) mg/dL POC Glucose (mg/dL) 136 H (75-99) mg/dL Total Bilirubin 3.1 H (0.2-1.3) mg/dL AST 62 H (17-59) U/L Total Protein 5.8 L (6.3-8.2) g/dL Albumin 3.0 L (3.5-5.0) g/dL Procalcitonin (0.02-0.09) ng/mL 05/03/21 05/03/21 Range/Units 07:53 10:45 Hct (39.0-53.0) % Plt Count (150-450) k/uL Lymphocytes # (Manual) (1.0-4.8) k/uL Potassium (3.5-5.1) mmol/L BUN (9-20) mg/dL Creatinine (0.66-1.25) mg/dL Glucose (74-99) mg/dL POC Glucose (mg/dL) 129 H 175 H (75-99) mg/dL Total Bilirubin (0.2-1.3) mg/dL AST (17-59) U/L Total Protein (6.3-8.2) g/dL Albumin (3.5-5.0) g/dL Procalcitonin (0.02-0.09) ng/mL Assessment and Plan Assessment: Acute cardiogenic shock secondary to Acute diastolic CHF exacerbation. Acute hypoxic respiratory failure, BiPAP dependent Acute renal failure secondary to ATN related to the above, cardiorenal syndrome. Hyperkalemia secondary to the above Moderate to severe aortic stenosis Troponin leak Chronic A. fib on anticoagulation History of CVA 2 Epilepsy , history of, on Keppra with history of Chronic lower extremity venous stasis changes, ischemic appearing Hypertension, history of Hyperlipidemia Chest x-ray and labs reviewed Continued on a Bumex drip per nephrology We'll continue to titrate down the norepinephrine as tolerated Continue Unasyn today Pro calcitonin 0.53 Cortisol level XLVI Anticoagulated with Eliquis Titrate the FiO2 as tolerated DVT prophylaxis; systemic anticoagulation with Eliquis CODE STATUS; patient remains full code
[2021-05-03 18:21] LABS: Glucose,Whole Blood 222 mg/dL (75-99)
[2021-05-04] MEDS: AMPICILLIN-SULBACTAM 1.5 GM in SODIUM CHLORIDE 0.9% 50 ML IVPB SCH ×3 (00:31→15:57)
[2021-05-04] MEDS: BUMETANIDE 10 MG in DEXTROSE 5% IN WATER 60 ML IV SCH ×2 (00:44)
[2021-05-04 05:56] LABS: HCT 52.1 % (39.0-53.0); Hypochromasia Slight; MCH 31.2 pg (25.0-35.0); MCHC 32.7 g/dL (31.0-37.0); MCV 95.5 fL (80.0-100.0); Mean Platelet Volume 10.8; RBC 5.45 m/uL (4.30-5.90); WBC 6.6 k/uL (3.8-10.6)
[2021-05-04 05:59] LABS: Glucose,Whole Blood 102 mg/dL (75-99)
[2021-05-04 06:05] LABS: Platelet Count 62 k/uL (150-450)
[2021-05-04 06:06] LABS: Calcium 8.1 mg/dL (8.4-10.2); Potassium 3.6 mmol/L (3.5-5.1); Total Bilirubin 2.6 mg/dL (0.2-1.3); Total Protein 5.7 g/dL (6.3-8.2)
[2021-05-04] MEDS ORDERED: Potassium Replacement Protocol 1 EACH MISC MISCELLANE PRN (06:09)
--- NOTE | 2021-05-04 07:14 | XR ---
EXAMINATION TYPE: XR chest 1V portable DATE OF EXAM: 05/04/2021 COMPARISON: NONE HISTORY: 81 years Male. STUDY INDICATION GIVEN: CHF . TECHNIQUE: AP chest radiograph IMPRESSION: Tip of right chest catheter terminates in the SVC. Bibasilar left greater than right atelectasis or c onsolidation and mild interstitial edema without significant change. No pneumothorax. Small right eff usion significant change. Moderate enlargement of the heart similar to prior. Intrathoracic aortic at herosclerotic disease are seen again.
[2021-05-04] MEDS: IPRATROPIUM-ALBUTEROL 3 ML NEB INHALATION SCH ×4 (07:37→20:35)
[2021-05-04] MEDS: APIXABAN 5 MG TAB PO SCH ×2 (08:19→21:51)
[2021-05-04] MEDS: POTASSIUM CHLORIDE 10 MEQ in WATER FOR INJECTION 1 100ML.BAG IVPB SCH ×4 (08:19→19:52)
[2021-05-04] MEDS: levETIRAcetam 500 MG TAB PO SCH ×2 (08:19→21:51)
[2021-05-04] MEDS: PANTOPRAZOLE 40 MG/10 ML VIAL IV SCH (08:19)
[2021-05-04] MEDS: AMIODARONE 200 MG TAB PO SCH ×3 (08:19→21:50)
--- NOTE | 2021-05-04 11:00 | P.PN ---
Subjective Progress Note Date: 05/04/21 This is an 81-year-old male patient with a known history of congestive heart failure, CVA/TIA, hypertension, hyperlipidemia, chronic atrial fibrillation anticoagulated with Eliquis, epilepsy maintained on Keppra, previous ventilatory dependent respiratory failure secondary to CHF. He was brought into the emergency room by EMS yesterday with generalized weakness and slurred speech. Initially a code stroke was called. Computed tomography scan of the brain did not reveal any acute abnormalities. CT angiogram of the head and neck revealed no evidence of intracranial hemodynamic stenosis. His NIH score was 2. Carotid Dopplers were suboptimal but no hemodynamically significant stenosis noted. He was felt to be more in a cardiogenic shock state. X-ray revealed significant pulmonary edema. Blunting of the right costophrenic angle. Congestive heart failure with a right pleural effusion. EKG revealed atrial fibrillation with a right bundle-branch block. Review his echocardiogram revealed preserved left ventricular systolic function. There is noted moderate to severe aortic stenosis. He was placed on BiPAP currently 14/7 and 80% FiO2 with O2 saturations in the mid 90s. He does have chronic edema and vascular changes of the lower extremities. He is arousable. White count 7.9. Hemoglobin 17.8. Sodium 135. Potassium 6.8. BUN 60. Creatinine 2.45. Glucose 63. Troponin 0.045. AST 117. ALT 52. The patient is seen today 05/02/20212017 in follow-up in the intensive care unit. He was taken off the BiPAP earlier this morning and is currently on 35% Ventimask. He is awake. Alert. He drifts off easily still. He has had issues with loose stools. C. difficile screen is negative. Lactic acid levels have trended down. As of a temperature 100.6. Chest x-ray continues to show some evidence of fluid volume overload. He is requiring norepinephrine at 0.1 mcg/kg/m. He's been initiated on Bumex drip at 0.5 mg per hour per nephrology. He is anticoagulated with Eliquis. White count 8.9. Hemoglobin 17.7. Platelet count 106,000. Sodium 139. Potassium 6.1. BUN 64. Creatinine 2.64. AST 87. ALT 48. Currently in a +270 balance. He continues with Doppler pulses in lower extremities. Still with significant vascular changes mostly chronic possibly an acute component. The patient is seen today 05/03/2021 in follow-up in the intensive care unit. He is currently sitting up in bed. Awake and alert in no acute distress. He is maintaining O2 saturations in the 90s on 3 L/m per nasal cannula. Chest x-ray showing some worsening signs of pulmonary edema/CHF. He continues to diurese well and is currently in a -336 mL balance. His weight is 100 kg. White count 7.3. Hemoglobin 17.5. Platelet count 96,000. Sodium 138. Potassium 4.7. BUN 62. Creatinine 2.23. Glucose 210. Serum cortisol level was 46. Pro- calcitonin 0.53. He remains on Unasyn. He is continued on bronchodilators. Anticoagulated with Eliquis. He is continued on a Bumex drip at 0.5 mg per hour. Still requiring a small amount of norepinephrine at 0.14 mcg/kg/m. Normal saline at 20 mL per hour. He continues to have some lower extremity edema. He has a positive murmur. The patient is seen today 05/04/2021 in follow-up in the intensive care unit. He is much more awake and alert. Oriented. Sitting up in bed. Maintaining O2 saturations in the 90s on 3 L/m per nasal cannula. Chest x-ray continues to revealed bibasilar left greater than right atelectasis and mild interstitial edema. No significant change. He remains on a Bumex drip at 0.5 mg per hour. Norepinephrine has been off since approximately 2 AM. He remains on Unasyn for suspected cellulitis of the lower extremities. Microbiology is been negative thus far. Currently in a -3.3 L balance. Weight is 98.7 kg. White count 6.6. Hemoglobin 17.0. Platelets 62,000. Sodium 137. Potassium 3.6. BUN 51. Creatinine 1.74. Glucose 112. He remains in atrial fibrillation. He is anticoagulated with Eliquis. Objective - Vital Signs Vital signs: Vital Signs Temp 97.7 F 05/04/21 08:00 Pulse 108 H 05/04/21 10:00 Resp 21 05/04/21 10:00 BP 104/74 05/04/21 10:00 Pulse Ox 92 L 05/04/21 10:00 Intake & Output 0205/04/21 05/04/21 18:59 06:59 18:59 Intake Total 1379.265 584.622 330 Output Total 2415 2900 770 Balance -1035.735 -2315.378 -440 Weight 98.7 kg Intake: IV 240 260 80 0.9 kvo 240 260 80 Intake, IV Titration 289.265 324.622 250 Amount Ampicillin-Sulbactam 1.5 50 gm In Sodium Chloride 0.9 % 50 ml @ 100 mls/hr IVPB Q8HR [facility] Rx#:[id number] Bumetanide 10 mg In 100 Dextrose 5% in Water 60 ml @ 0.5 MG/HR 5 mls/hr IV .Q20H [facility] Rx#: [id number] Norepinephrine 4 mg In 289.265 224.622 Sodium Chloride 0.9% 250 ml @ 0.05 MCG/KG/MIN 18. 751 mls/hr IV .[id number] [facility] Rx#:[id number] Potassium Chloride 10 meq 200 In Water For Injection 1 100ml.bag @ 100 mls/hr IVPB Q1H [facility] Rx#: [id number] Oral 850 Output: Urine 2415 2900 770 Other: Voiding Method Indwelling Catheter Indwelling Catheter Indwelling Catheter - Exam GENERAL EXAM: Alert, 81-year-old male patient, on 3 L/m per nasal cannula, fairly comfortable in no apparent distress. HEAD: Normocephalic. EYES: Normal reaction of pupils, equal size. NOSE: Clear with pink turbinates. THROAT: No erythema or exudates. NECK: No masses, no JVD. CHEST: No chest wall deformity. LUNGS: Equal air entry with crackles in the bilateral bases. CVS: S1 and S2 normal with an audible murmur, irregular rhythm. ABDOMEN: No hepatosplenomegaly, normal bowel sounds, no guarding or rigidity. SPINE: No scoliosis or deformity SKIN: No rashes CENTRAL NERVOUS SYSTEM: No focal deficits, tone is normal in all 4 extremities. EXTREMITIES: Changes of chronic venous stasis. There is some additional redness possibly acute changes as well. There is 1+ peripheral edema. Doppler pulses. - Labs CBC & Chem 7: 05/04/21 05:09 05/04/21 05:09 Labs: Abnormal Lab Results - Last 24 Hours (Table) 05/03/21 05/04/21 05/04/21 Range/Units 18:20 05:09 05:09 Plt Count 62 L (150-450) k/uL Chloride 96 L (98-107) mmol/L Carbon Dioxide 34 H (22-30) mmol/L BUN 51 H (9-20) mg/dL Creatinine 1.74 H (0.66-1.25) mg/dL Glucose 112 H (74-99) mg/dL POC Glucose (mg/dL) 222 H (75-99) mg/dL Calcium 8.1 L (8.4-10.2) mg/dL Total Bilirubin 2.6 H (0.2-1.3) mg/dL AST 61 H (17-59) U/L Total Protein 5.7 L (6.3-8.2) g/dL Albumin 3.0 L (3.5-5.0) g/dL 05/04/21 Range/Units 05:57 Plt Count (150-450) k/uL Chloride (98-107) mmol/L Carbon Dioxide (22-30) mmol/L BUN (9-20) mg/dL Creatinine (0.66-1.25) mg/dL Glucose (74-99) mg/dL POC Glucose (mg/dL) 102 H (75-99) mg/dL Calcium (8.4-10.2) mg/dL Total Bilirubin (0.2-1.3) mg/dL AST (17-59) U/L Total Protein (6.3-8.2) g/dL Albumin (3.5-5.0) g/dL Microbiology - Last 24 Hours (Table) 05/02/21 09:49 Blood Culture - Preliminary Blood No Growth after 24 hours 05/02/21 09:51 Blood Culture - Preliminary Blood No Growth after 24 hours Assessment and Plan Assessment: 1 Acute hypoxemic respiratory failure secondary to an acute exacerbation of suspected diastolic congestive heart failure. Echocardiogram revealed preserved left ventricular systolic function 2 Acute cardiogenic shock secondary to diastolic congestive heart failure 3 Acute renal failure secondary to above 4 Acute hyperkalemia secondary to above 5 Febrile illness currently 100.6, pro calcitonin 0.53, initiated on Unasyn 6 Moderate to severe aortic stenosis 7 Chronic atrial fibrillation, anticoagulants with Eliquis 8 History of diastolic congestive heart failure 9 History of chronic lower extremity edema with changes of chronic venous stasis 10 History of epilepsy following a CVA, maintained on Keppra 11 History of CVA 12 History of hypertension 13 Hyperlipidemia 14 History of prostate cancer status post radiation Plan: The patient was seen and evaluated Chest x-ray and labs reviewed Continued on a Bumex drip per nephrology Plan is to transition to oral diuretics today Continue Unasyn Anticoagulated with Eliquis Weaned off norepinephrine May admitted drain if blood pressure remains low Transfer to selective care unit today Titrate the FiO2 as tolerated We will continue to follow I, the cosigning physician, performed a history & physical examination of the patient. Lungs sounds with crackles in the bilateral bases. Maintaining O2 saturations in the 90s on 3 L/m per nasal cannula. I discussed the assessment and plan of care with my nurse practitioner, Chelle Becerra. I attest to the above note as dictated by her. I have personally seen and examined the patient, performed the documentation and the assessment and plan as written. Number of minutes spent on the visit: 10.
[2021-05-04 11:34] LABS: Glucose,Whole Blood 117 mg/dL (75-99)
--- NOTE | 2021-05-04 12:00 | P.PN ---
Subjective Progress Note Date: 05/04/21 Principal diagnosis: This is a 81-year-old male seen in consultation because of chronic kidney disease, acute kidney injury from combination of contrast nephropathy and cardiorenal syndrome. Currently on Bumex drip at 0.5 mg he is doing very well urine output of 5 L and reduced edema and shortness of breath. He is off of levo fed Echocardiogram on 05/01/2021 showed ejection fraction of 50-55% Objective - Vital Signs Vital signs: Vital Signs Temp 97.7 F 05/04/21 08:00 Pulse 112 H 05/04/21 11:34 Resp 23 05/04/21 11:00 BP 108/77 05/04/21 11:00 Pulse Ox 90 L 05/04/21 11:00 Intake & Output 05/03/21 05/04/21 05/04/21 18:59 06:59 18:59 Intake Total 1379.265 584.622 330 Output Total 2415 2900 770 Balance -1035.735 -2315.378 -440 Weight 98.7 kg Intake: IV 240 260 80 0.9 kvo 240 260 80 Intake, IV Titration 289.265 324.622 250 Amount Ampicillin-Sulbactam 1.5 50 gm In Sodium Chloride 0.9 % 50 ml @ 100 mls/hr IVPB Q8HR [facility] Rx#:[id number] Bumetanide 10 mg In 100 Dextrose 5% in Water 60 ml @ 0.5 MG/HR 5 mls/hr IV .Q20H [facility] Rx#: [id number] Norepinephrine 4 mg In 289.265 224.622 Sodium Chloride 0.9% 250 ml @ 0.05 MCG/KG/MIN 18. 751 mls/hr IV .[id number] [facility] Rx#:[id number] Potassium Chloride 10 meq 200 In Water For Injection 1 100ml.bag @ 100 mls/hr IVPB Q1H [facility] Rx#: [id number] Oral 850 Output: Urine 2415 2900 770 Other: Voiding Method Indwelling Catheter Indwelling Catheter Indwelling Catheter On examination is awake alert oriented but short of breath A chin exam no JVP noted neck is supple no facial asymmetry Lungs are significant for occasional fine crackles at bases fair air entry bilaterally Heart sounds unremarkable for any murmur rub gallop He is in atrial fibrillation Abdomen soft nontender Extremity exam stable. Edema Neurologically awake alert oriented but generalized weakness - Labs CBC & Chem 7: 05/04/21 05:09 05/04/21 05:09 Labs: Abnormal Lab Results - Last 24 Hours (Table) 05/03/21 05/04/21 05/04/21 Range/Units 18:20 05:09 05:09 Plt Count 62 L (150-450) k/uL Chloride 96 L (98-107) mmol/L Carbon Dioxide 34 H (22-30) mmol/L BUN 51 H (9-20) mg/dL Creatinine 1.74 H (0.66-1.25) mg/dL Glucose 112 H (74-99) mg/dL POC Glucose (mg/dL) 222 H (75-99) mg/dL Calcium 8.1 L (8.4-10.2) mg/dL Total Bilirubin 2.6 H (0.2-1.3) mg/dL AST 61 H (17-59) U/L Total Protein 5.7 L (6.3-8.2) g/dL Albumin 3.0 L (3.5-5.0) g/dL 05/04/21 05/04/21 Range/Units 05:57 11:33 Plt Count (150-450) k/uL Chloride (98-107) mmol/L Carbon Dioxide (22-30) mmol/L BUN (9-20) mg/dL Creatinine (0.66-1.25) mg/dL Glucose (74-99) mg/dL POC Glucose (mg/dL) 102 H 117 H (75-99) mg/dL Calcium (8.4-10.2) mg/dL Total Bilirubin (0.2-1.3) mg/dL AST (17-59) U/L Total Protein (6.3-8.2) g/dL Albumin (3.5-5.0) g/dL Microbiology - Last 24 Hours (Table) 05/02/21 09:49 Blood Culture - Preliminary Blood No Growth after 24 hours 05/02/21 09:51 Blood Culture - Preliminary Blood No Growth after 24 hours Assessment and Plan Assessment: Impression 1. Acute kidney injury from a combination of contrast-induced nephropathy and cardiorenal syndrome with diastolic dysfunction. Currently responded very well to Bumex drip at 0.5 mg per hour. His off of levo fed. Creatinine improved from 2.64-1.74, urine output is 5.3 L. 2. Diastolic dysfunction with maintained ejection fraction and congestive heart failure. 3. Significant edema 4. Mild metabolic alkalosis bicarb is 34 increased secondary to diuretics Recommendation 1. Will change Bumex drip to by mouth 3 mg twice a day and see how he responds. He could be transferred out to a monitored bed from the ICU if his urine output is maintained and his Bumex can be resumed IV if she does not respond to by mouth switch. 2. Maintain I's and O's strict as well as monitor labs.
[2021-05-04] MEDS: BUMETANIDE 1 MG TAB PO SCH ×2 (12:29→21:50)
--- NOTE | 2021-05-04 14:53 | P.PN ---
Subjective Progress Note Date: 05/04/21 History of present illness: This is a 81-year-old gentleman with history of diastolic CHF, previous CVA, hypertension, hyperlipidemia and also chronic atrial fibrillation was brought to the hospital with complaints of rather abrupt onset of weakness and slurred speech with a suspicion for CVA. Initially "stroke was initiated. Apparently patient was hypotensive on arrival. Computed tomography scan of the brain did not reveal any acute abnormalities. CT angiogram the head and neck revealed no evidence of intracranial hemodynamics stenosis. His NIH score was 2. Carotid d uplex study was suboptimal but no significant stenosis noted. A chest x-ray showed evidence of CHF and possible bibasilar infiltrates. His echocardiogram showed preserved LV function with evidence of possible moderate to severe aortic stenosis. The echocardiographic studies done over the last several years have shown varying gradient across the aortic valve. Patient's creatinine was high, computed to the previous admissions size to acute renal failure associated with hyperkalemia. Patient was on Lasix 40 mg and also Aldactone 25 mg by mouth twice a day at home. His potassium is high. His urine output has been low. Patient has been hypotensive and has been on Levophed. Patient also on anticoagulation therapy at home. Patient is awake and responds to verbal stimuli. His BUN is 60, creatinine is 2.45. Renal consult is initiated. The picture could be consistent with a diastolic CHF though concomitant pneumonia and sepsis cannot be excluded. I will initiate on IV Lasix drip and await further recommendations of the first assistant. Hold off Aldactone. His troponin values are mildly elevated but not consistent with acute myocardial injury pattern. His EKG showed atrial fibrillation with a right bundle-branch block without any acute changes. Further recommendations depend upon clinical course. 05/02/2021: This patient seemed to be little more stable. Still on vasopressors for the blood pressure. Patient seemed to be awake but sleepy. He was able to take in his his . His urine output has been slow. A chest x-ray showed some improvement. His kidney function remained stable, but potassium is high. Nephrology is following and correcting potassium levels. Patient is initiated on IV Bumex. Patient also has a dusky ischemic-looking feet. Also having mild fevers. Patient is going to have a calcitonin and also blood cultures. Patient will continue current management. Collar for possible underlying sepsis. Prognosis is guarded. We will follow. 05/03/2021: Patient seemed to be a little more alert. Still looks frail and weak, Denies any chest pain or shortness of breath. on small dose of Levophed and maintaining systolic blood pressure of about 110. Patient is in atrial fibrillation with moderately rapid ventricular response. We're going to start him on oral amiodarone 200 mg by mouth twice a day. Is on IV Bumex and seemed to be having reasonably and output. His creatinine has shown some improvement. Potassium levels are normal. Lungs show diminished breath sounds. Heart systolic murmur heard. Chest x-ray showed signs of CHF and pleural effusion. We'll continue current management except adding oral amiodarone. 05/04/2021: Patient's to be much more alert today and seemed to be more responsive and less distress. His urine output is very good test. Chest x-ray does show some improvement compared to the previous x-rays. His heart rate is still in 100 to 110 range. Patient is on amiodarone by mouth. I'm going to increase the dose to 200 mg by mouth 3 times a day. Patient is being switched from IV Bumex to oral Bumex. Patient is being transferred to telemetry unit. Will follow Objective - Vital Signs Vital signs: Vital Signs Temp 98.6 F 05/04/21 12:00 Pulse 113 H 05/04/21 14:00 Resp 19 05/04/21 14:00 BP 103/70 05/04/21 14:00 Pulse Ox 91 L 05/04/21 14:00 Intake & Output 05/03/21 05/04/21 05/04/21 18:59 06:59 18:59 Intake Total 1379.265 584.622 330 Output Total 2415 2900 770 Balance -1035.735 -2315.378 -440 Weight 98.7 kg Intake: IV 240 260 80 0.9 kvo 240 260 80 Intake, IV Titration 289.265 324.622 250 Amount Ampicillin-Sulbactam 1.5 50 gm In Sodium Chloride 0.9 % 50 ml @ 100 mls/hr IVPB Q8HR [facility] Rx#:[id number] Bumetanide 10 mg In 100 Dextrose 5% in Water 60 ml @ 0.5 MG/HR 5 mls/hr IV .Q20H [facility] Rx#: [id number] Norepinephrine 4 mg In 289.265 224.622 Sodium Chloride 0.9% 250 ml @ 0.05 MCG/KG/MIN 18. 751 mls/hr IV .[id number] [facility] Rx#:[id number] Potassium Chloride 10 meq 200 In Water For Injection 1 100ml.bag @ 100 mls/hr IVPB Q1H [facility] Rx#: [id number] Oral 850 Output: Urine 2415 2900 770 Other: Voiding Method Indwelling Catheter Indwelling Catheter Indwelling Catheter - Exam GENERAL EXAM: Patient is sleepy but arousable HEENT: Normocephalic. Normal reaction of pupils, equal size, normal range of extraocular motion. No erythema or exudates in the throat. NECK: No masses, no nuchal rigidity. CHEST: No chest wall deformity. LUNGS: Diminished breath sounds HEART: S1 and S2 normal . A stent heart sounds, systolic murmur present ABDOMEN: Soft SKIN: No rashes CENTRAL NERVOUS SYSTEM: No focal deficits. EXTREMITIES: Dusky and dark looking rule out ischemia - Labs CBC & Chem 7: 05/04/21 05:09 05/04/21 05:09 Labs: Abnormal Lab Results - Last 24 Hours (Table) 05/03/21 05/04/21 05/04/21 Range/Units 18:20 05:09 05:09 Plt Count 62 L (150-450) k/uL Chloride 96 L (98-107) mmol/L Carbon Dioxide 34 H (22-30) mmol/L BUN 51 H (9-20) mg/dL Creatinine 1.74 H (0.66-1.25) mg/dL Glucose 112 H (74-99) mg/dL POC Glucose (mg/dL) 222 H (75-99) mg/dL Calcium 8.1 L (8.4-10.2) mg/dL Total Bilirubin 2.6 H (0.2-1.3) mg/dL AST 61 H (17-59) U/L Total Protein 5.7 L (6.3-8.2) g/dL Albumin 3.0 L (3.5-5.0) g/dL 05/04/21 05/04/21 Range/Units 05:57 11:33 Plt Count (150-450) k/uL Chloride (98-107) mmol/L Carbon Dioxide (22-30) mmol/L BUN (9-20) mg/dL Creatinine (0.66-1.25) mg/dL Glucose (74-99) mg/dL POC Glucose (mg/dL) 102 H 117 H (75-99) mg/dL Calcium (8.4-10.2) mg/dL Total Bilirubin (0.2-1.3) mg/dL AST (17-59) U/L Total Protein (6.3-8.2) g/dL Albumin (3.5-5.0) g/dL Microbiology - Last 24 Hours (Table) 05/02/21 09:49 Blood Culture - Preliminary Blood No Growth after 48 hours 05/02/21 09:51 Blood Culture - Preliminary Blood No Growth after 48 hours Assessment and Plan (1) Acute renal failure Current Visit: Yes Status: Acute Code(s): N17.9 - ACUTE KIDNEY FAILURE, UNSPECIFIED SNOMED Code(s): 53613561 (2) Acute hypoxemic respiratory failure Current Visit: Yes Status: Acute Code(s): J96.01 - ACUTE RESPIRATORY FAILURE WITH HYPOXIA SNOMED Code(s): 273247001 (3) Atrial fibrillation Current Visit: No Status: Acute Code(s): I48.91 - UNSPECIFIED ATRIAL FIBRILLATION SNOMED Code(s): 87548134 (4) CVA (cerebral vascular accident) Current Visit: No Status: Acute Code(s): I63.9 - CEREBRAL INFARCTION, UNSPECIFIED SNOMED Code(s): 439696260 (5) Hyperkalemia Current Visit: Yes Status: Acute Code(s): E87.5 - HYPERKALEMIA SNOMED Code(s): 15286022 (6) Diastolic CHF Current Visit: Yes Status: Acute Code(s): I50.30 - UNSPECIFIED DIASTOLIC (CONGESTIVE) HEART FAILURE SNOMED Code(s): 772269534 Plan: Patient has shown improvement. Mentally seemed to be more alert and in less distress. Urine output is good. Chest x-ray shows improvement. Heart rate is still slightly tachycardic. We'll increase the dose of the amiodarone. Being transferred to telemetry unit
[2021-05-04 16:36] LABS: Glucose,Whole Blood 130 mg/dL (75-99)
--- NOTE | 2021-05-04 19:24 | P.PN ---
Subjective Progress Note Date: 05/04/21 Principal diagnosis: Acute hypoxemic respiratory failure secondary to an acute exacerbation of suspected diastolic congestive heart failure Acute cardiogenic shock secondary to diastolic congestive heart failure Acute renal failure 81-year-old male patient with a known history of congestive heart failure, CVA/TIA, hypertension, hyperlipidemia, chronic atrial fibrillation anticoagulated with Eliquis, epilepsy maintained on Keppra, previous ventilatory dependent respiratory failure secondary to CHF. He was brought into the emergency room by EMS yesterday with generalized weakness and slurred speech. Initially a code stroke was called. Computed tomography scan of the brain did not reveal any acute abnormalities. CT angiogram of the head and neck revealed no evidence of intracranial hemodynamic stenosis. His NIH score was 2. Carotid Dopplers were suboptimal but no hemodynamically significant stenosis noted. He was felt to be more in a cardiogenic shock state. X-ray revealed significant pulmonary edema. Blunting of the right costophrenic angle. Congestive heart failure with a right pleural effusion. EKG revealed atrial fibrillation with a right bundle-branch block. Review his echocardiogram revealed preserved left ventricular systolic function. There is noted moderate to severe aortic stenosis. He was placed on BiPAP currently 14/7 and 80% FiO2 with O2 saturations in the mid 90s. He does have chronic edema and vascular changes of the lower extremities. He is arousable. White count 7.9. Hemoglobin 17.8. Sodium 135. Potassium 6.8. BUN 60. Creatinine 2.45. Glucose 63. Troponin 0.045. AST 117. ALT 52. 05/03/2021 Patient is seen and evaluated in follow-up; patient's family at bedside. Awake and alert in no acute distress. He is maintaining O2 saturations in the 90s on 3 L/m per nasal cannula. Chest x-ray showing some worsening signs of pulmonary edema/CHF. White count 7.3. Hemoglobin 17.5. Platelet count 96,000. Sodium 138. Potassium 4.7. BUN 62. Creatinine 2.23. Glucose 210. Serum cortisol level was 46. Pro-calcitonin 0.53. Patient remains on Unasyn, bronchodilators, Eliquis. He is continued on a Bumex drip at 0.5 mg per hour. Still requiring a small amount of norepinephrine at 0.14 mcg/kg/m. Normal saline at 20 mL per hour. He continues to have some l ower extremity edema. 05/04/2021 Patient is seen and evaluated in ICU; and daughter bedside; patient is more awake and Vital signs are stable with temperature 97.7, pulse 108, respiration 21 and blood pressure 104/74 White count 6.6. Hemoglobin 17.0. Platelets 62,000. Sodium 137. Potassium 3.6. BUN 51. Creatinine 1.74. Glucose 112. He remains in atrial fibril lation. He is anticoagulated with Eliquis. Patient has been transitioned to oral diuretics today; has been weaned off norepinephrine; remains on IV Unasyn Plan is to continue to titrate FiO2 as tolerated; continue current management Patient will be transferred to selective care unit Objective - Vital Signs Vital signs: Vital Signs Temp 98.6 F 05/04/21 12:00 Pulse 112 H 05/04/21 12:00 Resp 20 05/04/21 12:00 BP 114/85 05/04/21 12:00 Pulse Ox 91 L 05/04/21 12:00 Intake & Output 05/03/21 05/04/21 05/04/21 18:59 06:59 18:59 Intake Total 1379.265 584.622 330 Output Total 2415 2900 770 Balance -1035.735 -2315.378 -440 Weight 98.7 kg Intake: IV 240 260 80 0.9 kvo 240 260 80 Intake, IV Titration 289.265 324.622 250 Amount Ampicillin-Sulbactam 1.5 50 gm In Sodium Chloride 0.9 % 50 ml @ 100 mls/hr IVPB Q8HR [facility] Rx#:[id number] Bumetanide 10 mg In 100 Dextrose 5% in Water 60 ml @ 0.5 MG/HR 5 mls/hr IV .Q20H [facility] Rx#: [id number] Norepinephrine 4 mg In 289.265 224.622 Sodium Chloride 0.9% 250 ml @ 0.05 MCG/KG/MIN 18. 751 mls/hr IV .[id number] [facility] Rx#:[id number] Potassium Chloride 10 meq 200 In Water For Injection 1 100ml.bag @ 100 mls/hr IVPB Q1H [facility] Rx#: [id number] Oral 850 Output: Urine 2415 2900 770 Other: Voiding Method Indwelling Catheter Indwelling Catheter Indwelling Catheter - Exam GENERAL EXAM: Alert, 81-year-old male patient, on 3 L/m per nasal cannula, fairly comfortable in no apparent distress. HEAD: Normocephalic. EYES: Normal reaction of pupils, equal size. NECK: No masses, no JVD. CHEST: No chest wall deformity. LUNGS: Equal air entry with crackles in the bilateral bases. CVS: S1 and S2 normal with an audible murmur, irregular rhythm. ABDOMEN: No hepatosplenomegaly, normal bowel sounds, no guarding or rigidity. CENTRAL NERVOUS SYSTEM: No focal deficits, tone is normal in all 4 extremities. - Labs CBC & Chem 7: 05/04/21 05:09 05/04/21 09:38 Labs: Abnormal Lab Results - Last 24 Hours (Table) 05/03/21 05/04/21 05/04/21 Range/Units 18:20 05:09 05:09 Plt Count 62 L (150-450) k/uL Chloride 96 L (98-107) mmol/L Carbon Dioxide 34 H (22-30) mmol/L BUN 51 H (9-20) mg/dL Creatinine 1.74 H (0.66-1.25) mg/dL Glucose 112 H (74-99) mg/dL POC Glucose (mg/dL) 222 H (75-99) mg/dL Calcium 8.1 L (8.4-10.2) mg/dL Total Bilirubin 2.6 H (0.2-1.3) mg/dL AST 61 H (17-59) U/L Total Protein 5.7 L (6.3-8.2) g/dL Albumin 3.0 L (3.5-5.0) g/dL 05/04/21 05/04/21 Range/Units 05:57 11:33 Plt Count (150-450) k/uL Chloride (98-107) mmol/L Carbon Dioxide (22-30) mmol/L BUN (9-20) mg/dL Creatinine (0.66-1.25) mg/dL Glucose (74-99) mg/dL POC Glucose (mg/dL) 102 H 117 H (75-99) mg/dL Calcium (8.4-10.2) mg/dL Total Bilirubin (0.2-1.3) mg/dL AST (17-59) U/L Total Protein (6.3-8.2) g/dL Albumin (3.5-5.0) g/dL Microbiology - Last 24 Hours (Table) 05/02/21 09:49 Blood Culture - Preliminary Blood No Growth after 48 hours 05/02/21 09:51 Blood Culture - Preliminary Blood No Growth after 48 hours Assessment and Plan Assessment: Acute cardiogenic shock secondary to Acute diastolic CHF exacerbation. Acute hypoxic respiratory failure, BiPAP dependent Acute renal failure secondary to ATN related to the above, cardiorenal syndrome. Hyperkalemia secondary to the above Moderate to severe aortic stenosis Troponin leak Chronic A. fib on anticoagulation History of CVA 2 Epilepsy , history of, on Keppra with history of Chronic lower extremity venous stasis changes, ischemic appearing Hypertension, history of Hyperlipidemia Chest x-ray and labs reviewed Continued on a Bumex drip per nephrology We'll continue to titrate down the norepinephrine as tolerated Continue Unasyn today Pro calcitonin 0.53 Cortisol level XLVI Anticoagulated with Eliquis Titrate the FiO2 as tolerated DVT prophylaxis; systemic anticoagulation with Eliquis CODE STATUS; patient remains full code
[2021-05-04 19:49] LABS: Glucose,Whole Blood 129 mg/dL (75-99)
[2021-05-05] MEDS: AMPICILLIN-SULBACTAM 1.5 GM in SODIUM CHLORIDE 0.9% 50 ML IVPB SCH ×3 (01:28→17:00)
[2021-05-05 05:58] LABS: Glucose,Whole Blood 95 mg/dL (75-99)
--- NOTE | 2021-05-05 07:57 | XR ---
EXAMINATION TYPE: XR chest 1V portable DATE OF EXAM: 05/05/2021 Comparison: 05/04/2021 Clinical History: 81-year-old male shortness of breath Findings: Right PICC tip mid SVC. Silhouetting of the right heart margin. Moderate right effusion stable to sli ghtly increased. Diffuse interstitial density persists. Impression: 1. Similar silhouetting of the right heart margin. This could represent adjacent right middle lobe an d right lower lobe collapse, adjacent loculated effusion, mass, pericardial effusion, or marked cardi omegaly. 2. Continued moderate right pleural effusion with mild pulmonary vascular congestion.
[2021-05-05] MEDS: IPRATROPIUM-ALBUTEROL 3 ML NEB INHALATION SCH ×4 (08:19→20:13)
--- NOTE | 2021-05-05 08:36 | P.PN ---
Subjective Progress Note Date: 05/05/21 Principal diagnosis: This is a 81-year-old male seen in consultation because of chronic kidney disease, acute kidney injury from combination of contrast nephropathy and cardiorenal syndrome. Yesterday his Bumex drip which was at 0.5 mg per hour was changed to 3 mg by mouth twice a day and he continues to respond with good urine output. Subjectively feels better. Urine output is maintained, 24 90 mL out compared to 8-60s intake. He still is looking weak and tired albeit slightly better than yesterday He was off of levo fed yesterday. Echocardiogram on 05/01/2021 showed ejection fraction of 50-55% Objective - Vital Signs Vital signs: Vital Signs Temp 98.2 F 05/05/21 04:00 Pulse 108 H 05/05/21 08:19 Resp 18 05/05/21 04:00 BP 109/64 05/05/21 04:00 Pulse Ox 94 L 05/05/21 04:00 Intake & Output 05/04/21 05/05/21 05/05/21 18:59 06:59 18:59 Intake Total 520 340 Output Total 1490 1000 Balance -970 -660 Intake: IV 220 0.9 kvo 220 Intake, IV Titration 300 100 Amount Ampicillin-Sulbactam 1.5 100 gm In Sodium Chloride 0.9 % 50 ml @ 100 mls/hr IVPB Q8HR [facility] Rx#:[id number] Potassium Chloride 10 meq 200 In Water For Injection 1 100ml.bag @ 100 mls/hr IVPB Q1H [facility] Rx#: [id number] Potassium Chloride 10 meq 100 In Water For Injection 1 100ml.bag @ 100 mls/hr IVPB Q1H [facility] Rx#: [id number] Oral 240 Output: Urine 1490 1000 Other: Voiding Method Indwelling Catheter Indwelling Catheter On examination is awake alert oriented but generalized weakness HEENT exam no JVP noted neck is supple no facial asymmetry Lungs are clear to auscultation and occasional fine crackle at bases good air entry bilaterally Heart sounds unremarkable for any murmur rub gallop. He has atrial fibrillation Abdomen soft nontender. Extremity exam was mild edema improved Lucio bandages on both legs Neurologically awake alert but profoundly weak - Labs CBC & Chem 7: 05/04/21 05:09 05/04/21 09:38 Labs: Abnormal Lab Results - Last 24 Hours (Table) 05/04/21 05/04/21 05/04/21 Range/Units 11:33 16:34 19:47 POC Glucose (mg/dL) 117 H 130 H 129 H (75-99) mg/dL Microbiology - Last 24 Hours (Table) 05/02/21 09:49 Blood Culture - Preliminary Blood No Growth after 48 hours 05/02/21 09:51 Blood Culture - Preliminary Blood No Growth after 48 hours Assessment and Plan Assessment: Impression 1. Acute kidney injury from a combination of contrast-induced nephropathy and cardiorenal syndrome with diastolic dysfunction. responded very well to Bumex drip at 0.5 mg per hour, discontinued drip and started on Bumex 3 twice a day yesterday. His off of levo fed. Creatinine improved from 2.64-1.74, last today pending 2. Diastolic dysfunction with maintained ejection fraction and congestive heart failure. 3. Significant edema, improved 4. Mild metabolic alkalosis bicarb is 34 increased secondary to diuretics Recommendation 1. Continue Bumex 3 mg by mouth twice a day 2. Maintain I's and O's strict as well as monitor labs.
[2021-05-05] MEDS: PANTOPRAZOLE 40 MG/10 ML VIAL IV SCH (10:06)
[2021-05-05] MEDS: AMIODARONE 200 MG TAB PO SCH ×3 (10:06→21:33)
[2021-05-05] MEDS: levETIRAcetam 500 MG TAB PO SCH ×2 (10:06→21:33)
[2021-05-05] MEDS: APIXABAN 5 MG TAB PO SCH ×2 (10:06→21:33)
--- NOTE | 2021-05-05 11:26 | P.PN ---
Subjective Progress Note Date: 05/05/21 HISTORY OF PRESENT ILLNESS History of present illness: This is a 81-year-old gentleman with history of diastolic CHF, previous CVA, hypertension, hyperlipidemia and also chronic atrial fibrillation was brought to the hospital with complaints of rather abrupt onset of weakness and slurred speech with a suspicion for CVA. Initially "stroke was initiated. Apparently patient was hypotensive on arrival. Computed tomography scan of the brain did not reveal any acute abnormalities. CT angiogram the head and neck revealed no evidence of intracranial hemodynamics stenosis. His NIH score was 2. Carotid duplex study was suboptimal but no significant stenosis noted. A chest x-ray showed evidence of CHF and possible bibasilar infiltrates. His echocardiogram showed preserved LV function with evidence of possible moderate to severe aortic stenosis. The echocardiographic studies done over the last several years have shown varying gradient across the aortic valve. Patient's creatinine was high, computed to the previous admissions size to acute renal failure associated with hyperkalemia. Patient was on Lasix 40 mg and also Aldactone 25 mg by mouth twice a day at home. His potassium is high. His urine output has been low. Patient has been hypotensive and has been on Levophed. Patient also on anticoagulation therapy at home. Patient is awake and responds to verbal stimuli. His BUN is 60, creatinine is 2.45. Renal consult is initiated. The picture could be consistent with a diastolic CHF though concomitant pneumonia and sepsis cannot be excluded. I will initiate on IV Lasix drip and await further recommendations of the exhibits coordinator. Hold off Aldactone. His troponin values are mildly elevated but not consistent with acute myocardial injury pattern. His EKG showed atrial fibrillation with a right bundle-branch block without any acute changes. Further recommendations depend upon clinical course. 05/02/2021: This patient seemed to be little more stable. Still on vasopressors for the blood pressure. Patient seemed to be awake but sleepy. He was able to take in his his . His urine output has been slow. A chest x-ray showed some improvement. His kidney function remained stable, but potassium is high. Nephrology is following and correcting potassium levels. Patient is initiated on IV Bumex. Patient also has a dusky ischemic-looking feet. Also having mild fevers. Patient is going to have a calcitonin and also blood cultures. Patient will continue current management. Collar for possible underlying sepsis. Prognosis is guarded. We will follow. 05/03/2021: Patient seemed to be a little more alert. Still looks frail and weak, Denies any chest pain or shortness of breath. on small dose of Levophed and maintaining systolic blood pressure of about 110. Patient is in atrial fibrillation with moderately rapid ventricular response. We're going to start him on oral amiodarone 200 mg by mouth twice a day. Is on IV Bumex and seemed to be having reasonably and output. His creatinine has shown some improvement. Potassium levels are normal. Lungs show diminished breath sounds. Heart systolic murmur heard. Chest x-ray showed signs of CHF and pleural effusion. We'll continue current management except adding oral amiodarone. 05/04/2021: Patient's to be much more alert today and seemed to be more responsive and less distress. His urine output is very good test. Chest x-ray does show some improvement compared to the previous x-rays. His heart rate is still in 100 to 110 range. Patient is on amiodarone by mouth. I'm going to increase the dose to 200 mg by mouth 3 times a day. Patient is being switched from IV Bumex to oral Bumex. Patient is being transferred to telemetry unit. Will follow 05/05/2021: Patient states that he is feeling well today, no chest pain and no shortness of breath. Patient was transferred out of the intensive care unit yesterday and seen today on the cardiac stepdown unit. He remains in atrial fibrillation with controlled rate in the low 100s. Plan is to continue the current dose of amiodarone and add low dose Lopressor. Chest x-ray reveals similar still awaiting of the right heart margin could represent adjacent right middle lobe and right lower lobe collapse, adjacent loculated effusion, mass, pericardial effusion or marked cardiomegaly. Continued moderate right pleural effusion with mild pulmonary vascular congestion. PHYSICAL EXAMINATION GENERAL EXAM: Patient appears to be in no acute distress HEENT: Normocephalic. Normal reaction of pupils, equal size, normal range of extraocular motion. No erythema or exudates in the throat. NECK: No masses, no nuchal rigidity. CHEST: No chest wall deformity. LUNGS: Diminished breath sounds HEART: S1 and S2 normal . Distant heart sounds, systolic murmur present ABDOMEN: Soft SKIN: No rashes CENTRAL NERVOUS SYSTEM: No focal deficits. EXTREMITIES: Dusky and dark looking rule out ischemia ASSESSMENT Acute renal failure Acute hypoxic respiratory failure Atrial fibrillation CVA Hyperkalemia Diastolic heart failure PLAN Continue amiodarone at 200 mg 3 times daily Resume Lopressor 12.5 mg twice daily which is decreased from his home dose. Continue eliquis 5 mg twice daily Further recommendations to follow based upon clinical course Thank you kindly for this consultation. Nurse practitioner note has been reviewed, I agree with documented findings and plan of care. Patient was seen and examined. Objective - Vital Signs Vital signs: Vital Signs Temp 98.2 F 05/05/21 04:00 Pulse 108 H 05/05/21 08:33 Resp 18 05/05/21 04:00 BP 109/64 05/05/21 04:00 Pulse Ox 94 L 05/05/21 04:00 Intake & Output 05/04/21 05/05/21 05/05/21 18:59 06:59 18:59 Intake Total 520 340 240 Output Total 1490 1000 Balance -970 -660 240 Intake: IV 220 0.9 kvo 220 Intake, IV Titration 300 100 Amount Ampicillin-Sulbactam 1.5 100 gm In Sodium Chloride 0.9 % 50 ml @ 100 mls/hr IVPB Q8HR [facility] Rx#:[id number] Potassium Chloride 10 meq 200 In Water For Injection 1 100ml.bag @ 100 mls/hr IVPB Q1H [facility] Rx#: [id number] Potassium Chloride 10 meq 100 In Water For Injection 1 100ml.bag @ 100 mls/hr IVPB Q1H [facility] Rx#: [id number] Oral 240 240 Output: Urine 1490 1000 Other: Voiding Method Indwelling Catheter Indwelling Catheter - Labs CBC & Chem 7: 05/04/21 05:09 05/04/21 09:38 Labs: Abnormal Lab Results - Last 24 Hours (Table) 05/04/21 05/04/21 05/04/21 Range/Units 11:33 16:34 19:47 POC Glucose (mg/dL) 117 H 130 H 129 H (75-99) mg/dL Microbiology - Last 24 Hours (Table) 05/02/21 09:49 Blood Culture - Preliminary Blood No Growth after 48 hours 05/02/21 09:51 Blood Culture - Preliminary Blood No Growth after 48 hours
--- NOTE | 2021-05-05 11:26 | P.PN ---
Subjective Progress Note Date: 05/05/21 Principal diagnosis: Acute hypoxemic respiratory failure secondary to an acute exacerbation of suspected diastolic congestive heart failure Acute cardiogenic shock secondary to diastolic congestive heart failure Acute renal failure 81-year-old male patient with a known history of congestive heart failure, CVA/TIA, hypertension, hyperlipidemia, chronic atrial fibrillation anticoagulated with Eliquis, epilepsy maintained on Keppra, previous ventilatory dependent respiratory failure secondary to CHF. He was brought into the emergency room by EMS yesterday with generalized weakness and slurred speech. Initially a code stroke was called. Computed tomography scan of the brain did not reveal any acute abnormalities. CT angiogram of the head and neck revealed no evidence of intracranial hemodynamic stenosis. His NIH score was 2. Carotid Dopplers were suboptimal but no hemodynamically significant stenosis noted. He was felt to be more in a cardiogenic shock state. X-ray revealed significant pulmonary edema. Blunting of the right costophrenic angle. Congestive heart failure with a right pleural effusion. EKG revealed atrial fibrillation with a right bundle-branch block. Review his echocardiogram revealed preserved left ventricular systolic function. There is noted moderate to severe aortic stenosis. He was placed on BiPAP currently 14/7 and 80% FiO2 with O2 saturations in the mid 90s. He does have chronic edema and vascular changes of the lower extremities. He is arousable. White count 7.9. Hemoglobin 17.8. Sodium 135. Potassium 6.8. BUN 60. Creatinine 2.45. Glucose 63. Troponin 0.045. AST 117. ALT 52. 05/03/2021 Patient is seen and evaluated in follow-up; patient's family at bedside. Awake and alert in no acute distress. He is maintaining O2 saturations in the 90s on 3 L/m per nasal cannula. Chest x-ray showing some worsening signs of pulmonary edema/CHF. White count 7.3. Hemoglobin 17.5. Platelet count 96,000. Sodium 138. Potassium 4.7. BUN 62. Creatinine 2.23. Glucose 210. Serum cortisol level was 46. Pro-calcitonin 0.53. Patient remains on Unasyn, bronchodilators, Eliquis. He is continued on a Bumex drip at 0.5 mg per hour. Still requiring a small amount of norepinephrine at 0.14 mcg/kg/m. Normal saline at 20 mL per hour. He continues to have some l ower extremity edema. 05/04/2021 Patient is seen and evaluated in ICU; and daughter bedside; patient is more awake and Vital signs are stable with temperature 97.7, pulse 108, respiration 21 and blood pressure 104/74 White count 6.6. Hemoglobin 17.0. Platelets 62,000. Sodium 137. Potassium 3.6. BUN 51. Creatinine 1.74. Glucose 112. He remains in atrial fibril lation. He is anticoagulated with Eliquis. Patient has been transitioned to oral diuretics today; has been weaned off norepinephrine; remains on IV Unasyn Plan is to continue to titrate FiO2 as tolerated; continue current management Patient will be transferred to selective care unit 05/05/2021 Patient is seen and evaluated in selective care unit; denies any specific comp laints Vital signs are reviewed temperature 98.2, pulse 108, respiration 18 and blood pressure 109/64 Nephrology on board for acute renal injury resulting from contrast-induced nephropathy and cardiorenal syndrome with diastolic dysfunction; patient has responded to Bumex infusion which has now been discontinued and patient has been placed back on Bumex 3 mg twice a day; last creatinine improved at 1.74; continue to monitor strict GISEL's Objective - Vital Signs Vital signs: Vital Signs Temp 98.2 F 05/05/21 04:00 Pulse 110 H 05/05/21 04:00 Resp 18 05/05/21 04:00 BP 109/64 05/05/21 04:00 Pulse Ox 94 L 05/05/21 04:00 Intake & Output 05/04/21 05/05/21 05/05/21 18:59 06:59 18:59 Intake Total 520 340 Output Total 1490 1000 Balance -970 -660 Intake: IV 220 0.9 kvo 220 Intake, IV Titration 300 100 Amount Ampicillin-Sulbactam 1.5 100 gm In Sodium Chloride 0.9 % 50 ml @ 100 mls/hr IVPB Q8HR [facility] Rx#:[id number] Potassium Chloride 10 meq 200 In Water For Injection 1 100ml.bag @ 100 mls/hr IVPB Q1H [facility] Rx#: [id number] Potassium Chloride 10 meq 100 In Water For Injection 1 100ml.bag @ 100 mls/hr IVPB Q1H [facility] Rx#: [id number] Oral 240 Output: Urine 1490 1000 Other: Voiding Method Indwelling Catheter Indwelling Catheter - Exam GENERAL EXAM: Alert, 81-year-old male patient, on 3 L/m per nasal cannula, fairly comfortable in no apparent distress. HEAD: Normocephalic. EYES: Normal reaction of pupils, equal size. NECK: No masses, no JVD. CHEST: No chest wall deformity. LUNGS: Equal air entry with crackles in the bilateral bases. CVS: S1 and S2 normal with an audible murmur, irregular rhythm. ABDOMEN: No hepatosplenomegaly, normal bowel sounds, no guarding or rigidity. CENTRAL NERVOUS SYSTEM: No focal deficits, tone is normal in all 4 extremities. - Labs CBC & Chem 7: 05/04/21 05:09 05/04/21 09:38 Labs: Abnormal Lab Results - Last 24 Hours (Table) 05/04/21 05/04/21 05/04/21 Range/Units 11:33 16:34 19:47 POC Glucose (mg/dL) 117 H 130 H 129 H (75-99) mg/dL Microbiology - Last 24 Hours (Table) 05/02/21 09:49 Blood Culture - Preliminary Blood No Growth after 48 hours 05/02/21 09:51 Blood Culture - Preliminary Blood No Growth after 48 hours Assessment and Plan Assessment: Acute cardiogenic shock secondary to Acute diastolic CHF exacerbation. Acute hypoxic respiratory failure, BiPAP dependent Acute renal failure secondary to ATN related to the above, cardiorenal syndrome. Hyperkalemia secondary to the above Moderate to severe aortic stenosis Troponin leak Chronic A. fib on anticoagulation History of CVA 2 Epilepsy , history of, on Keppra with history of Chronic lower extremity venous stasis changes, ischemic appearing Hypertension, history of Hyperlipidemia Chest x-ray and labs reviewed Continued on a Bumex drip per nephrology We'll continue to titrate down the norepinephrine as tolerated Continue Unasyn today Pro calcitonin 0.53 Cortisol level XLVI Anticoagulated with Eliquis Titrate the FiO2 as tolerated DVT prophylaxis; systemic anticoagulation with Eliquis CODE STATUS; patient remains full code
[2021-05-05 11:45] LABS: Glucose,Whole Blood 122 mg/dL (75-99)
[2021-05-05] MEDS: BUMETANIDE 1 MG TAB PO SCH ×2 (12:13→21:33)
--- NOTE | 2021-05-05 15:41 | P.PN ---
Subjective Progress Note Date: 05/05/21 Principal diagnosis: Mental status changes. This is an 81-year-old male patient with a known history of congestive heart failure, CVA/TIA, hypertension, hyperlipidemia, chronic atrial fibrillation anticoagulated with Eliquis, epilepsy maintained on Keppra, previous ventilatory dependent respiratory failure secondary to CHF. He was brought into the emergency room by EMS yesterday with generalized weakness and slurred speech. Initially a code stroke was called. Computed tomography scan of the brain did not reveal any acute abnormalities. CT angiogram of the head and neck revealed no evidence of intracranial hemodynamic stenosis. His NIH score was 2. Carotid Dopplers were suboptimal but no hemodynamically significant stenosis noted. He was felt to be more in a cardiogenic shock state. X-ray revealed significant pulmonary edema. Blunting of the right costophrenic angle. Congestive heart failure with a right pleural effusion. EKG revealed atrial fibrillation with a right bundle-branch block. Review his echocardiogram revealed preserved left ventricular systolic function. There is noted moderate to severe aortic stenosis. He was placed on BiPAP currently 14/7 and 80% FiO2 with O2 saturations in the mid 90s. He does have chronic edema and vascular changes of the lower extremities. He is arousable. White count 7.9. Hemoglobin 17.8. Sodium 135. Potassium 6.8. BUN 60. Creatinine 2.45. Glucose 63. Troponin 0.045. AST 117. ALT 52. The patient is seen today 05/02/20212017 in follow-up in the intensive care unit. He was taken off the BiPAP earlier this morning and is currently on 35% Ventimask. He is awake. Alert. He drifts off easily still. He has had issues with loose stools. C. difficile screen is negative. Lactic acid levels have trended down. As of a temperature 100.6. Chest x-ray continues to show some evidence of fluid volume overload. He is requiring norepinephrine at 0.1 mcg/kg/m. He's been initiated on Bumex drip at 0.5 mg per hour per nephrology. He is anticoagulated with Eliquis. White count 8.9. Hemoglobin 17.7. Platelet count 106,000. Sodium 139. Potassium 6.1. BUN 64. Creatinine 2.64. AST 87. ALT 48. Currently in a +270 balance. He continues with Doppler pulses in lower extremities. Still with significant vascular changes mostly chronic possibly an acute component. The patient is seen today 05/03/2021 in follow-up in the intensive care unit. He is currently sitting up in bed. Awake and alert in no acute distress. He is maintaining O2 saturations in the 90s on 3 L/m per nasal cannula. Chest x-ray showing some worsening signs of pulmonary edema/CHF. He continues to diurese well and is currently in a -336 mL balance. His weight is 100 kg. White count 7.3. Hemoglobin 17.5. Platelet count 96,000. Sodium 138. Potassium 4.7. BUN 62. Creatinine 2.23. Glucose 210. Serum cortisol level was 46. Pro- calcitonin 0.53. He remains on Unasyn. He is continued on bronchodilators. Anticoagulated with Eliquis. He is continued on a Bumex drip at 0.5 mg per hour. Still requiring a small amount of norepinephrine at 0.14 mcg/kg/m. Normal saline at 20 mL per hour. He continues to have some lower extremity edema. He has a positive murmur. The patient is seen today 05/04/2021 in follow-up in the intensive care unit. He is much more awake and alert. Oriented. Sitting up in bed. Maintaining O2 saturations in the 90s on 3 L/m per nasal cannula. Chest x-ray continues to revealed bibasilar left greater than right atelectasis and mild interstitial edema. No significant change. He remains on a Bumex drip at 0.5 mg per hour. Norepinephrine has been off since approximately 2 AM. He remains on Unasyn for suspected cellulitis of the lower extremities. Microbiology is been negative thus far. Currently in a -3.3 L balance. Weight is 98.7 kg. White count 6.6. Hemoglobin 17.0. Platelets 62,000. Sodium 137. Potassium 3.6. BUN 51. Creatinine 1.74. Glucose 112. He remains in atrial fibrillation. He is anticoagulated with Eliquis. Progress note dated 05/05/2021. The patient was transferred out of the intensive care unit yesterday. He remains in the hospital, in room 370. The patient has been in the hospital now for 5 days. Currently, he's on 3 L nasal cannula. He is getting saline at 20 mL an hour. His is sitting next to him in the room. The patient is feeling much improved. No new laboratory data today other than a glucose of 1 22. Labs from yesterday are reviewed. Chest x-ray today shows a moderate right-sided pleural effusion, with some pulmonary vascular congestion. In addition, there is some silhouetting of the right heart margin, which may represent lobar collapse effusion, or infiltrate. Objective - Vital Signs Vital signs: Vital Signs Temp 97.7 F 05/05/21 12:00 Pulse 108 H 05/05/21 12:11 Resp 19 05/05/21 12:00 BP 90/62 05/05/21 12:00 Pulse Ox 99 05/05/21 12:00 Intake & Output 05/04/21 05/05/21 05/05/21 18:59 06:59 18:59 Intake Total 520 340 240 Output Total 1490 1000 500 Balance -970 -660 -260 Intake: IV 220 0.9 kvo 220 Intake, IV Titration 300 100 Amount Ampicillin-Sulbactam 1.5 100 gm In Sodium Chloride 0.9 % 50 ml @ 100 mls/hr IVPB Q8HR [facility] Rx#:[id number] Potassium Chloride 10 meq 200 In Water For Injection 1 100ml.bag @ 100 mls/hr IVPB Q1H [facility] Rx#: [id number] Potassium Chloride 10 meq 100 In Water For Injection 1 100ml.bag @ 100 mls/hr IVPB Q1H [facility] Rx#: [id number] Oral 240 240 Output: Urine 1490 1000 500 Other: Voiding Method Indwelling Catheter Indwelling Catheter - Exam No acute distress, oriented 3. Currently on 3 L nasal cannula. HEENT examination is grossly unremarkable. Neck supple. Full range of motion. No adenopathy thyromegaly or neck vein distention. Cardiovascular examination reveals an irregular rhythm. S1-S2 normal. No S3 or S4. No discernible murmur noted. Heart rate 89 bpm. Heart sounds are distant. Lungs reveal bibasilar crackles. Breath sounds equal bilaterally. No rhonchi or wheezes are noted. Abdomen soft bowel sounds are heard. No masses or tenderness. Extremities are wrapped, but there is 1+ lower extremity edema. Skin reveals chronic venous stasis changes, to the bilateral lower extremities. Neurologic examination is brief but nonfocal. - Labs CBC & Chem 7: 05/04/21 05:09 05/04/21 09:38 Labs: Abnormal Lab Results - Last 24 Hours (Table) 05/04/21 05/04/21 05/05/21 Range/Units 16:34 19:47 11:43 POC Glucose (mg/dL) 130 H 129 H 122 H (75-99) mg/dL Microbiology - Last 24 Hours (Table) 05/02/21 09:49 Blood Culture - Preliminary Blood No Growth after 72 hours 05/02/21 09:51 Blood Culture - Preliminary Blood No Growth after 72 hours Assessment and Plan Assessment: 1 Acute hypoxemic respiratory failure secondary to an acute exacerbation of suspected diastolic congestive heart failure. 2 Acute cardiogenic shock secondary to diastolic congestive heart failure, resolved. 3 Acute renal failure secondary to above. 4 Acute hyperkalemia secondary to above. 5 Febrile illness, currently on Unasyn for cellulitis. 6 Moderate to severe aortic stenosis. 7 Chronic atrial fibrillation. 8 History of diastolic congestive heart failure. 9 History of chronic lower extremity edema with changes of chronic venous stasis 10 History of epilepsy following a CVA. 11 History of CVA. 12 History of hypertension. 13 Hyperlipidemia. 14 History of prostate cancer status post radiation. Plan: Plan dated 05/05/2021. The patient appears to be doing much better. He's been weaned down to 3 L. He is on saline at 20 mL an hour. The lower extremity edema is much improved. He's currently on Unasyn for suspected cellulitis. The patient's blood pressure has been very stable. His other medications are all appropriate and include Bumex, Eliquis, Tylenol, Cordarone, metoprolol, Keppra, and Protonix. We will continue to follow make recommendations where appropriate. The patient also continues on updrafts. Prognosis is guarded. Time with Patient: Less than 30
[2021-05-05 16:57] LABS: Glucose,Whole Blood 110 mg/dL (75-99)
[2021-05-05 17:36] LABS: HCT 51.9 % (39.0-53.0); HGB 16.2 gm/dL (13.0-17.5); Hypochromasia Moderate; MCH 29.7 pg (25.0-35.0); MCHC 31.3 g/dL (31.0-37.0); MCV 94.9 fL (80.0-100.0); Mean Platelet Volume 11.2; RBC 5.46 m/uL (4.30-5.90); RDW 15.3 % (11.5-15.5); WBC 6.3 k/uL (3.8-10.6)
[2021-05-05 17:37] LABS: Platelet Count 57 k/uL (150-450)
[2021-05-05 17:52] LABS: Calcium 8.1 mg/dL (8.4-10.2); Potassium 4.1 mmol/L (3.5-5.1)
[2021-05-05 18:03] LABS: Band Neutrophils % 3 %; Basophils # (M) 0.06 k/uL (0-0.2); Lymphocytes # (M) 0.88 k/uL (1.0-4.8); Monocytes # (M) 0.69 k/uL (0-1.0); Neutrophils % (M) 71 %; Nucleated Red Blood Cells 0 /100 WBC (0-0); Total Cells Counted 100
[2021-05-05 20:20] LABS: Glucose,Whole Blood 163 mg/dL (75-99)
[2021-05-05] MEDS: METOPROLOL TARTRATE 12.5 MG TAB PO SCH (21:33)
[2021-05-06] MEDS: AMPICILLIN-SULBACTAM 1.5 GM in SODIUM CHLORIDE 0.9% 50 ML IVPB SCH ×4 (01:14→23:50)
[2021-05-06 06:05] LABS: Glucose,Whole Blood 114 mg/dL (75-99)
[2021-05-06] MEDS: IPRATROPIUM-ALBUTEROL 3 ML NEB INHALATION SCH ×4 (07:24→20:12)
[2021-05-06 08:48] LABS: Calcium 8.1 mg/dL (8.4-10.2)
[2021-05-06] MEDS: levETIRAcetam 500 MG TAB PO SCH ×2 (09:11→20:47)
[2021-05-06] MEDS: BUMETANIDE 1 MG TAB PO SCH ×2 (09:11→20:48)
[2021-05-06] MEDS: AMIODARONE 200 MG TAB PO SCH ×3 (09:11→20:48)
[2021-05-06] MEDS: PANTOPRAZOLE 40 MG/10 ML VIAL IV SCH (09:12)
[2021-05-06] MEDS: METOPROLOL TARTRATE 12.5 MG TAB PO SCH ×4 (09:12→23:49)
[2021-05-06] MEDS: APIXABAN 5 MG TAB PO SCH ×2 (09:12→20:48)
--- NOTE | 2021-05-06 10:10 | P.PN ---
Subjective Patient is seen for follow-up for acute kidney injury on top of chronic kidney disease. Etiology for acute kidney injury is cardiorenal syndrome and contrast-induced nephropathy. Patient is maintained on Bumex which has been switched to by mouth from IV drip. Patient has had good urine output. 2.5 L noted for 24 hours. No complaints of chest pain shortness of breath. No nausea or vomiting. Creatinine is down to 1.45 today Objective - Vital Signs Vital signs: Vital Signs Temp 98.1 F 05/06/21 04:00 Pulse 105 H 05/06/21 07:34 Resp 18 05/06/21 04:00 BP 91/58 05/06/21 04:00 Pulse Ox 93 L 05/06/21 04:00 Intake & Output 05/05/21 05/06/21 05/06/21 18:59 06:59 18:59 Intake Total 240 Output Total 1100 2950 Balance -860 -2950 Weight 96.5 kg Intake: Oral 240 Output: Urine 1100 2950 Other: Voiding Method Indwelling Catheter Indwelling Catheter # Bowel Movements 1 - Exam Patient is awake comfortable. Not in any acute distress. Examination of the heart S1 and S2 Examination lungs decreased breath sounds bilateral bases Abdomen is soft nontender Examination lower extremities shows mild edema bilaterally. [employer] exam grossly intact - Labs CBC & Chem 7: 05/05/21 16:39 05/06/21 07:56 Labs: Abnormal Lab Results - Last 24 Hours (Table) 05/05/21 05/05/21 05/05/21 Range/Units 11:43 16:39 16:54 Plt Count 57 L (150-450) k/uL Lymphocytes # (Manual) 0.88 L (1.0-4.8) k/uL Sodium 134 L (137-145) mmol/L Chloride 91 L (98-107) mmol/L Carbon Dioxide 38 H (22-30) mmol/L BUN 38 H (9-20) mg/dL Creatinine 1.56 H (0.66-1.25) mg/dL Glucose 111 H (74-99) mg/dL POC Glucose (mg/dL) 122 H (75-99) mg/dL Calcium 8.1 L (8.4-10.2) mg/dL 05/05/21 05/05/21 05/06/21 Range/Units 16:55 20:18 06:03 Plt Count (150-450) k/uL Lymphocytes # (Manual) (1.0-4.8) k/uL Sodium (137-145) mmol/L Chloride (98-107) mmol/L Carbon Dioxide (22-30) mmol/L BUN (9-20) mg/dL Creatinine (0.66-1.25) mg/dL Glucose (74-99) mg/dL POC Glucose (mg/dL) 110 H 163 H 114 H (75-99) mg/dL Calcium (8.4-10.2) mg/dL 05/06/21 Range/Units 07:56 Plt Count (150-450) k/uL Lymphocytes # (Manual) (1.0-4.8) k/uL Sodium 133 L (137-145) mmol/L Chloride 91 L (98-107) mmol/L Carbon Dioxide 36 H (22-30) mmol/L BUN 31 H (9-20) mg/dL Creatinine 1.45 H (0.66-1.25) mg/dL Glucose 123 H (74-99) mg/dL POC Glucose (mg/dL) (75-99) mg/dL Calcium 8.1 L (8.4-10.2) mg/dL Microbiology - Last 24 Hours (Table) 05/02/21 09:49 Blood Culture - Preliminary Blood No Growth after 72 hours 05/02/21 09:51 Blood Culture - Preliminary Blood No Growth after 72 hours Assessment and Plan Assessment: 1. Acute kidney injury from cardiorenal syndrome with diastolic dysfunction and contrast-induced nephropathy. Currently diuresing well. Patient is off of pressors and has been transferred out of the ICU. Renal function continues to improve 2. Diastolic dysfunction 3. Volume overload currently improved 4. Mild metabolic alkalosis secondary to diuresis Plan: Continue current dose of Bumex. Repeat labs in [facility] at
[2021-05-06 11:47] LABS: Glucose,Whole Blood 138 mg/dL (75-99)
--- NOTE | 2021-05-06 13:55 | P.PN ---
Subjective Progress Note Date: 05/06/21 Principal diagnosis: Altered mental status On 05/06/2021 patient seen in follow-up on selective care unit. He is awake and alert, denies any acute distress, on 3 L of oxygen his pulse ox is 93%, he is being treated for acute exacerbation of diastolic CHF, remains on Bumex, he is in -3.8 L net fluid balance over the last 24 hours, his last chest x-ray still showing continued moderate right pleural effusion and mild pulmonary vascular congestion. No cough, no chest discomfort. His labs have been reviewed, his sodium is 133, potassium is 4.0, chloride is 91, CO2 36, B1 is 31 creatinine is 1.45. He remains on nebulized bronchodilators, no rhonchi or wheezing noted on today's exam, he is on oral anticoagulation with Eliquis and he is on oral Cordarone 200 mg 3 times a day. He is covered with Unasyn for lower extremity cellulitis. Objective - Vital Signs Vital signs: Vital Signs Temp 97.7 F 05/06/21 12:07 Pulse 108 H 05/06/21 12:07 Resp 18 05/06/21 12:07 BP 108/72 05/06/21 12:07 Pulse Ox 91 L 05/06/21 12:07 Intake & Output 05/05/21 05/06/21 05/06/21 18:59 06:59 18:59 Intake Total 240 Output Total 1100 2950 Balance -860 -2950 Weight 96.5 kg Intake: Oral 240 Output: Urine 1100 2950 Other: Voiding Method Indwelling Catheter Indwelling Catheter Indwelling Catheter # Bowel Movements 1 - Exam GENERAL EXAM: Alert, pleasant, 81-year-old white male, appears chronically ill and debilitated, but appears to be in no acute distress on 3 L of oxygen and a pulse ox of 93%, speech is slightly slow and possibly dysarthric comfortable in no apparent distress. HEAD: Normocephalic/atraumatic. EYES: Normal reaction of pupils, equal size. Conjunctiva pink, sclera white. NOSE: Clear with pink turbinates. THROAT: No erythema or exudates. NECK: No masses, no JVD, no thyroid enlargement, no adenopathy. CHEST: No chest wall deformity. Symmetrical expansion. LUNGS: Equal air entry with major depressive sounds with some scattered crackles CVS: Regular rate and rhythm, normal S1 and S2, no gallops, no murmurs, no rubs ABDOMEN: Soft, nontender. No hepatosplenomegaly, normal bowel sounds, no guarding or rigidity. EXTREMITIES: No clubbing, mild 1+ edema, and cellulitis of bilateral lower extremities, bilateral lower extremities are Lucio wrapped no cyanosis, 2+ pulses and upper and lower extremities. MUSCULOSKELETAL: Muscle strength and tone normal. SPINE: No scoliosis or deformity SKIN: No rashes CENTRAL NERVOUS SYSTEM: Alert and oriented -3. No focal deficits, tone is normal in all 4 extremities. PSYCHIATRIC: Alert and oriented -3. Appropriate affect. Intact judgment and insight. - Labs CBC & Chem 7: 05/05/21 16:39 05/06/21 07:56 Labs: Abnormal Lab Results - Last 24 Hours (Table) 05/05/21 05/05/21 05/05/21 Range/Units 16:39 16:54 16:55 Plt Count 57 L (150-450) k/uL Lymphocytes # (Manual) 0.88 L (1.0-4.8) k/uL Sodium 134 L (137-145) mmol/L Chloride 91 L (98-107) mmol/L Carbon Dioxide 38 H (22-30) mmol/L BUN 38 H (9-20) mg/dL Creatinine 1.56 H (0.66-1.25) mg/dL Glucose 111 H (74-99) mg/dL POC Glucose (mg/dL) 110 H (75-99) mg/dL Calcium 8.1 L (8.4-10.2) mg/dL 05/05/21 05/06/21 05/06/21 Range/Units 20:18 06:03 07:56 Plt Count (150-450) k/uL Lymphocytes # (Manual) (1.0-4.8) k/uL Sodium 133 L (137-145) mmol/L Chloride 91 L (98-107) mmol/L Carbon Dioxide 36 H (22-30) mmol/L BUN 31 H (9-20) mg/dL Creatinine 1.45 H (0.66-1.25) mg/dL Glucose 123 H (74-99) mg/dL POC Glucose (mg/dL) 163 H 114 H (75-99) mg/dL Calcium 8.1 L (8.4-10.2) mg/dL 05/06/21 Range/Units 11:45 Plt Count (150-450) k/uL Lymphocytes # (Manual) (1.0-4.8) k/uL Sodium (137-145) mmol/L Chloride (98-107) mmol/L Carbon Dioxide (22-30) mmol/L BUN (9-20) mg/dL Creatinine (0.66-1.25) mg/dL Glucose (74-99) mg/dL POC Glucose (mg/dL) 138 H (75-99) mg/dL Calcium (8.4-10.2) mg/dL Microbiology - Last 24 Hours (Table) 05/02/21 09:51 Blood Culture - Preliminary Blood No Growth after 96 hours 05/02/21 09:49 Blood Culture - Preliminary Blood No Growth after 96 hours Assessment and Plan Plan: Assessment: #1. Acute hypoxic respiratory failure related to an acute exacerbation of suspected diastolic CHF #2. Acute cardiogenic shock related to diastolic CHF, resolved #3. Acute kidney injury, likely related to cardiorenal etiology, improving #4. Acute hyperkalemia, improved and resolved #5. Febrile illness possibly related to cellulitis, currently on Unasyn #6. Moderate to severe aortic stenosis #7. Chronic A. fib on Eliquis #8. History of chronic lower extremity edema with changes of chronic venous stasis #9. History of epilepsy following a CVA #10. History of CVA #12. History of hypertension #13. Hyperlipidemia #14. History of prostate cancer status post radiation Plan: Continue with diuretics per cardiology recommendations Patient is maintaining negative net fluid balance Remains in A. fib, continues on oral anticoagulation and rate control medications Vital signs are stable Maintain aspiration precautions He continues on Unasyn for suspected lower extremity cellulitis Generally she is quite weak and debilitated Will need physical therapy evaluation for discharge planning recommendation Clinically fairly stable, without acute events overnight We'll obtain follow-up chest x-ray tomorrow Continue monitoring electrolytes and renal profile I performed a history & physical examination of the patient and discussed their management with my nurse practitioner, Cata Ku. I reviewed the nurse practitioner's note and agree with the documented findings and plan of care. Lung sounds are positive for dim breath sounds throughout the lung butler. The findings and the impression was discussed with the patient. I attest to the documentation by the nurse practitioner. Time with Patient: Less than 30
--- NOTE | 2021-05-06 14:22 | P.PN ---
Subjective Progress Note Date: 05/06/21 HISTORY OF PRESENT ILLNESS: This is a 81-year-old gentleman with history of diastolic CHF, previous CVA, hypertension, hyperlipidemia and also chronic atrial fibrillation was brought to the hospital with complaints of rather abrupt onset of weakness and slurred speech with a suspicion for CVA. Initially "stroke was initiated. Apparently patient was hypotensive on arrival. Computed tomography scan of the brain did not reveal any acute abnormalities. CT angiogram the head and neck revealed no evidence of intracranial hemodynamics stenosis. His NIH score was 2. Carotid duplex study was suboptimal but no significant stenosis noted. A chest x-ray showed evidence of CHF and possible bibasilar infiltrates. His echocardiogram showed preserved LV function with evidence of possible moderate to severe aortic stenosis. The echocardiographic studies done over the last several years have shown varying gradient across the aortic valve. Patient's creatinine was high, computed to the previous admissions size to acute renal failure associated with hyperkalemia. Patient was on Lasix 40 mg and also Aldactone 25 mg by mouth twice a day at home. His potassium is high. His urine output has been low. Patient has been hypotensive and has been on Levophed. Patient also on anticoagulation therapy at home. Patient is awake and responds to verbal stimuli. His BUN is 60, creatinine is 2.45. Renal consult is initiated. The picture could be consistent with a diastolic CHF though concomitant pneumonia and sepsis cannot be excluded. I will initiate on IV Lasix drip and await further recommendations of the levelman. Hold off Aldactone. His troponin values are mildly elevated but not consistent with acute myocardial injury pattern. His EKG showed atrial fibrillation with a right bundle-branch block without any acute changes. Further recommendations depend upon clinical course. 05/02/2021: This patient seemed to be little more stable. Still on vasopressors for the blood pressure. Patient seemed to be awake but sleepy. He was able to take in his his . His urine output has been slow. A chest x-ray showed some improvement. His kidney function remained stable, but potassium is high. Nephrology is following and correcting potassium levels. Patient is initiated on IV Bumex. Patient also has a dusky ischemic-looking feet. Also having mild fevers. Patient is going to have a calcitonin and also blood cultures. Patient will continue current management. Collar for possible underlying sepsis. Prognosis is guarded. We will follow. 05/03/2021: Patient seemed to be a little more alert. Still looks frail and weak, Denies any chest pain or shortness of breath. on small dose of Levophed and maintaining systolic blood pressure of about 110. Patient is in atrial fibrillation with moderately rapid ventricular response. We're going to start him on oral amiodarone 200 mg by mouth twice a day. Is on IV Bumex and seemed to be having reasonably and output. His creatinine has shown some improvement. Potassium levels are normal. Lungs show diminished breath sounds. Heart systolic murmur heard. Chest x-ray showed signs of CHF and pleural effusion. We'll continue current management except adding oral amiodarone. 05/04/2021: Patient's to be much more alert today and seemed to be more responsive and less distress. His urine output is very good test. Chest x-ray does show some improvement compared to the previous x-rays. His heart rate is still in 100 to 110 range. Patient is on amiodarone by mouth. I'm going to increase the dose to 200 mg by mouth 3 times a day. Patient is being switched from IV Bumex to oral Bumex. Patient is being transferred to telemetry unit. Will follow 05/05/2021: Patient states that he is feeling well today, no chest pain and no shortness of breath. Patient was transferred out of the intensive care unit yesterday and seen today on the cardiac stepdown unit. He remains in atrial fibrillation with controlled rate in the low 100s. Plan is to continue the current dose of amiodarone and add low dose Lopressor. Chest x-ray reveals similar still awaiting of the right heart margin could represent adjacent right middle lobe and right lower lobe collapse, adjacent loculated effusion, mass, pericardial effusion or marked cardiomegaly. Continued moderate right pleural effusion with mild pulmonary vascular congestion. 05/06/2021 Patient examined this morning at the bedside. He denies chest pain or pressure. Denies SOB. He remains on Bumex per nephrology. Creatinine 1.45 today. Telemetry reveals atrial fibrillation with a heart rate around 110. PHYSICAL EXAM: VITAL SIGNS: Reviewed. GENERAL: Well-developed in no acute distress. NECK: Supple. No JVD or thyromegaly LUNGS: Respirations even and unlabored. Lungs diminished to auscultation bilaterally. HEART: Irregular rate and rhythm. S1 and S2 heard. Systolic murmur noted. EXTREMITIES: Normal range of motion. No clubbing or cyanosis. Peripheral pulses intact. 1+ bilateral lower extremity edema ASSESSMENT: Acute renal failure Acute hypoxic respiratory failure Chronic atrial fibrillation History of CVA Hyperkalemia Acute on chronic diastolic heart failure PLAN: Continue diuretics per nephrology Increase metoprolol to 3 times a day Continue telemetry monitoring Continue to monitor BP Further recommendations pending patient course Nurse practitioner note has been reviewed by physician. Signing provider agrees with the documented findings, assessment, and plan of care. Objective - Vital Signs Vital signs: Vital Signs Temp 97.7 F 05/06/21 12:07 Pulse 108 H 05/06/21 12:07 Resp 18 05/06/21 12:07 BP 108/72 05/06/21 12:07 Pulse Ox 91 L 05/06/21 12:07 Intake & Output 05/05/21 05/06/21 05/06/21 18:59 06:59 18:59 Intake Total 240 Output Total 1100 2950 Balance -860 -2950 Weight 96.5 kg Intake: Oral 240 Output: Urine 1100 2950 Other: Voiding Method Indwelling Catheter Indwelling Catheter Indwelling Catheter # Bowel Movements 1 - Labs CBC & Chem 7: 05/05/21 16:39 05/06/21 07:56 Labs: Abnormal Lab Results - Last 24 Hours (Table) 05/05/21 05/05/21 05/05/21 Range/Units 16:39 16:54 16:55 Plt Count 57 L (150-450) k/uL Lymphocytes # (Manual) 0.88 L (1.0-4.8) k/uL Sodium 134 L (137-145) mmol/L Chloride 91 L (98-107) mmol/L Carbon Dioxide 38 H (22-30) mmol/L BUN 38 H (9-20) mg/dL Creatinine 1.56 H (0.66-1.25) mg/dL Glucose 111 H (74-99) mg/dL POC Glucose (mg/dL) 110 H (75-99) mg/dL Calcium 8.1 L (8.4-10.2) mg/dL 05/05/21 05/06/21 05/06/21 Range/Units 20:18 06:03 07:56 Plt Count (150-450) k/uL Lymphocytes # (Manual) (1.0-4.8) k/uL Sodium 133 L (137-145) mmol/L Chloride 91 L (98-107) mmol/L Carbon Dioxide 36 H (22-30) mmol/L BUN 31 H (9-20) mg/dL Creatinine 1.45 H (0.66-1.25) mg/dL Glucose 123 H (74-99) mg/dL POC Glucose (mg/dL) 163 H 114 H (75-99) mg/dL Calcium 8.1 L (8.4-10.2) mg/dL 05/06/21 Range/Units 11:45 Plt Count (150-450) k/uL Lymphocytes # (Manual) (1.0-4.8) k/uL Sodium (137-145) mmol/L Chloride (98-107) mmol/L Carbon Dioxide (22-30) mmol/L BUN (9-20) mg/dL Creatinine (0.66-1.25) mg/dL Glucose (74-99) mg/dL POC Glucose (mg/dL) 138 H (75-99) mg/dL Calcium (8.4-10.2) mg/dL Microbiology - Last 24 Hours (Table) 05/02/21 09:51 Blood Culture - Preliminary Blood No Growth after 96 hours 05/02/21 09:49 Blood Culture - Preliminary Blood No Growth after 96 hours
[2021-05-06 14:25] VITALS: BMI 31.4
--- NOTE | 2021-05-06 14:49 | PN ---
PROGRESS NOTE DATE OF SERVICE: 05/06/2021 This 81-year-old gentleman admitted with acute hypoxic failure with CHF, acute exacerbation, is being closely monitored. No chest pain. No palpitations. No fever. PHYSICAL EXAMINATION: Pulse is 98, blood pressure 90/59, respiration 18. NECK: No jugular venous distention. CARDIOVASCULAR: S1, S2 muffled. RESPIRATION: Breath sounds diminished at the bases. A few scattered rhonchi and crackles. ABDOMEN: Soft. LEGS: No edema. No swelling. NERVOUS SYSTEM: No focal deficit. LABS: Creatinine 1.45. ASSESSMENT: 1. Congestive heart failure, acute exacerbation, with acute on chronic diastolic dysfunction. 2. Acute hypoxic respiratory failure. 3. Acute renal failure. 4. Hyperkalemia. 5. Moderate to severe aortic stenosis. RECOMMENDATIONS AND DISCUSSION: I recommend to continue current medications, continue with the monitoring, symptomatic treatment. Continue with diuretics. Monitor oxygenation. Dr. Mary will follow tomorrow. MMWANGL / IJN: [id number] /
[2021-05-06 17:00] LABS: Glucose,Whole Blood 115 mg/dL (75-99)
[2021-05-06 20:23] LABS: Glucose,Whole Blood 189 mg/dL (75-99)
[2021-05-07 06:20] LABS: Glucose,Whole Blood 103 mg/dL (75-99)
[2021-05-07] MEDS: IPRATROPIUM-ALBUTEROL 3 ML NEB INHALATION SCH ×4 (07:20→19:33)
--- NOTE | 2021-05-07 08:18 | XR ---
EXAMINATION TYPE: XR chest 1V portable DATE OF EXAM: 05/07/2021 COMPARISON: X-ray dated 05/05/2021 HISTORY: Shortness of breath TECHNIQUE: Single frontal view of the chest is obtained. FINDINGS: Persistent increased cardiac size which could be due to cardiomegaly however pericardial effusion can not be excluded. Persistent bilateral pleural effusions larger on the right side with adjacent pulmon ivis atelectasis. Right lower lobe collapse or lesion can't be excluded by this x-ray. Unchanged right-sided PICC line and aortic atherosclerotic calcifications. No progressive pulmonary infiltration. IMPRESSION: No significant change from the previous x-ray as described above.
[2021-05-07] MEDS: METOPROLOL TARTRATE 12.5 MG TAB PO SCH ×2 (08:48→20:51)
[2021-05-07] MEDS: AMIODARONE 200 MG TAB PO SCH ×3 (08:54→20:51)
[2021-05-07] MEDS: PANTOPRAZOLE 40 MG/10 ML VIAL IV SCH (08:54)
[2021-05-07] MEDS: AMPICILLIN-SULBACTAM 1.5 GM in SODIUM CHLORIDE 0.9% 50 ML IVPB SCH ×3 (08:54→23:58)
[2021-05-07] MEDS: levETIRAcetam 500 MG TAB PO SCH ×2 (08:54→20:51)
[2021-05-07] MEDS: APIXABAN 5 MG TAB PO SCH ×2 (08:55→20:51)
[2021-05-07] MEDS: BUMETANIDE 1 MG TAB PO SCH ×2 (09:01→20:51)
--- NOTE | 2021-05-07 09:47 | P.PN ---
Subjective Progress Note Date: 05/07/21 Principal diagnosis: Altered mental status On 05/06/2021 patient seen in follow-up on selective care unit. He is awake and alert, denies any acute distress, on 3 L of oxygen his pulse ox is 93%, he is being treated for acute exacerbation of diastolic CHF, remains on Bumex, he is in -3.8 L net fluid balance over the last 24 hours, his last chest x-ray still showing continued moderate right pleural effusion and mild pulmonary vascular congestion. No cough, no chest discomfort. His labs have been reviewed, his sodium is 133, potassium is 4.0, chloride is 91, CO2 36, B1 is 31 creatinine is 1.45. He remains on nebulized bronchodilators, no rhonchi or wheezing noted on today's exam, he is on oral anticoagulation with Eliquis and he is on oral Cordarone 200 mg 3 times a day. He is covered with Unasyn for lower extremity cellulitis. On 05/07/2021 patient seen in follow-up on selective care unit, she is awake and alert, in no acute distress, he is resting in bed, he is generally weak, he requires excessive assist to even sit up in bed, but breathing fairly comforta sukhi, lung sounds reveal some scattered crackles at the bases, no rhonchi or wheezing. He remains on antibiotics for bilateral lower extremity cellulitis. he remains on oral Bumex 3 mg twice daily, and he is in -2.8 L net fluid balance over the last 24 hours, lower extremity edema has significantly improved, on 2 L of oxygen he is satting 91%. No complaints of chest discomfort. No cough, no rhonchi, no wheezing. Objective - Vital Signs Vital signs: Vital Signs Temp 97.4 F L 05/07/21 08:47 Pulse 85 05/07/21 08:47 Resp 16 05/07/21 08:47 BP 83/56 05/07/21 08:47 Pulse Ox 91 L 05/07/21 08:47 Intake & Output 05/06/21 05/07/21 05/07/21 18:59 06:59 18:59 Intake Total 100 Output Total 2049 92 Balance -1949 Weight 96.5 kg 96.5 kg Intake: IV 100 0.9 kvo 100 Output: Urine 2049 Straight 500 Uretheral (Wells) 300 Other: Voiding Method Indwelling Catheter Urinal # Voids 1 - Exam GENERAL EXAM: Alert, pleasant, 81-year-old white male, appears chronically ill and debilitated, but appears to be in no acute distress on 2 L of oxygen and a pulse ox of 93%, speech is slightly slow and possibly dysarthric comfortable in no apparent distress. HEAD: Normocephalic/atraumatic. EYES: Normal reaction of pupils, equal size. Conjunctiva pink, sclera white. NOSE: Clear with pink turbinates. THROAT: No erythema or exudates. NECK: No masses, no JVD, no thyroid enlargement, no adenopathy. CHEST: No chest wall deformity. Symmetrical expansion. LUNGS: Equal air entry with major depressive sounds with some scattered crackles CVS: Irregular rate and rhythm, normal S1 and S2, no gallops, systolic murmur present at the left border, no rubs ABDOMEN: Soft, nontender. No hepatosplenomegaly, normal bowel sounds, no guarding or rigidity. EXTREMITIES: No clubbing, mild 1+ edema, and cellulitis of bilateral lower extremities, bilateral lower extremities are Lucio wrapped no cyanosis, 2+ pulses and upper and lower extremities. MUSCULOSKELETAL: Muscle strength and tone normal. SPINE: No scoliosis or deformity SKIN: No rashes CENTRAL NERVOUS SYSTEM: Alert and oriented -3. No focal deficits, tone is normal in all 4 extremities. PSYCHIATRIC: Alert and oriented -3. Appropriate affect. Intact judgment and insight. - Labs CBC & Chem 7: 05/05/21 16:39 05/06/21 07:56 Labs: Abnormal Lab Results - Last 24 Hours (Table) 05/06/21 05/06/21 05/06/21 Range/Units 11:45 16:56 20:22 POC Glucose (mg/dL) 138 H 115 H 189 H (75-99) mg/dL 05/07/21 Range/Units 06:18 POC Glucose (mg/dL) 103 H (75-99) mg/dL Microbiology - Last 24 Hours (Table) 05/02/21 09:51 Blood Culture - Preliminary Blood No Growth after 96 hours 05/02/21 09:49 Blood Culture - Preliminary Blood No Growth after 96 hours Assessment and Plan Plan: Assessment: #1. Acute hypoxic respiratory failure related to an acute exacerbation of ezekiel pected diastolic CHF #2. Acute cardiogenic shock related to diastolic CHF, resolved #3. Acute kidney injury, likely related to cardiorenal etiology, improving #4. Acute hyperkalemia, improved and resolved #5. Febrile illness possibly related to cellulitis, currently on Unasyn #6. Moderate to severe aortic stenosis #7. Chronic A. fib on Eliquis #8. History of chronic lower extremity edema with changes of chronic venous stasis #9. History of epilepsy following a CVA #10. History of CVA #12. History of hypertension #13. Hyperlipidemia #14. History of prostate cancer status post radiation Plan: Today's CXr reviewed showing possible RML and RLL collapse, pleural effusions, and atelectasis Clinically patient is breathing easier, Continue with diuretics per cardiology recommendations Patient is maintaining negative net fluid balance Continue with antibiotics for BLe cellulitis per infectious disease Increase activity as tolerated Clinically fairly stable, without acute events overnight Continue monitoring electrolytes and renal profile May need subacute rehab placement I performed a history & physical examination of the patient and discussed their management with my nurse practitioner, Cata Ku. I reviewed the nurse practitioner's note and agree with the documented findings and plan of care. Lung sounds are positive for dim breath sounds throughout the lung butler. The findings and the impression was discussed with the patient. I attest to the do cumentation by the nurse practitioner. Time with Patient: Less than 30
[2021-05-07 10:23] LABS: Albumin 3.2 g/dL (3.5-5.0); Calcium 8.4 mg/dL (8.4-10.2); Potassium 3.9 mmol/L (3.5-5.1); Total Bilirubin 4.2 mg/dL (0.2-1.3); Total Protein 6.2 g/dL (6.3-8.2)
[2021-05-07 10:28] LABS: HCT 52.8 % (39.0-53.0); HGB 16.8 gm/dL (13.0-17.5); Hypochromasia Moderate; MCH 30.4 pg (25.0-35.0); MCHC 31.9 g/dL (31.0-37.0); MCV 95.3 fL (80.0-100.0); Mean Platelet Volume 11.8; RBC 5.54 m/uL (4.30-5.90); WBC 6.8 k/uL (3.8-10.6)
[2021-05-07 10:29] LABS: Platelet Count 71 k/uL (150-450)
--- NOTE | 2021-05-07 10:58 | P.PN ---
Subjective Patient is seen for follow-up for acute kidney injury on top of chronic kidney disease. Etiology for acute kidney injury is cardiorenal syndrome and contrast-induced nephropathy. Patient is maintained on Bumex which has been switched to by mouth from IV drip. Patient has had good urine output. 2.5 L noted for 24 hours. No complaints of chest pain shortness of breath. No nausea or vomiting. Creatinine is down to 1.45 yesterday Objective - Vital Signs Vital signs: Vital Signs Temp 97.4 F L 05/07/21 08:47 Pulse 85 05/07/21 08:47 Resp 16 05/07/21 08:47 BP 83/56 05/07/21 08:47 Pulse Ox 91 L 05/07/21 08:47 Intake & Output 05/06/21 05/07/21 05/07/21 18:59 06:59 18:59 Intake Total 100 10 Output Total 2049 925 Balance -1950 - 10 Weight 96.5 kg 96.5 kg Intake: IV 100 10 0.9 kvo 100 Invasive Line 3 10 Output: Urine 2049 925 Straight 500 Uretheral (Wells) 300 Other: Voiding Method Indwelling Catheter Urinal # Voids 1 - Exam Patient is awake comfortable. Not in any acute distress. 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 - Labs CBC & Chem 7: 05/07/21 08:47 05/07/21 08:47 Labs: Abnormal Lab Results - Last 24 Hours (Table) 05/06/21 05/06/21 05/06/21 Range/Units 11:45 16:56 20:22 Plt Count (150-450) k/uL Sodium (137-145) mmol/L Chloride (98-107) mmol/L Carbon Dioxide (22-30) mmol/L BUN (9-20) mg/dL Creatinine (0.66-1.25) mg/dL Glucose (74-99) mg/dL POC Glucose (mg/dL) 138 H 115 H 189 H (75-99) mg/dL Total Bilirubin (0.2-1.3) mg/dL AST (17-59) U/L Total Protein (6.3-8.2) g/dL Albumin (3.5-5.0) g/dL 05/07/21 05/07/21 05/07/21 Range/Units 06:18 08:47 08:47 Plt Count 71 L (150-450) k/uL Sodium 133 L (137-145) mmol/L Chloride 92 L (98-107) mmol/L Carbon Dioxide 35 H (22-30) mmol/L BUN 32 H (9-20) mg/dL Creatinine 1.46 H (0.66-1.25) mg/dL Glucose 125 H (74-99) mg/dL POC Glucose (mg/dL) 103 H (75-99) mg/dL Total Bilirubin 4.2 H (0.2-1.3) mg/dL AST 62 H (17-59) U/L Total Protein 6.2 L (6.3-8.2) g/dL Albumin 3.2 L (3.5-5.0) g/dL Microbiology - Last 24 Hours (Table) 05/02/21 09:51 Blood Culture - Preliminary Blood No Growth after 96 hours 05/02/21 09:49 Blood Culture - Preliminary Blood No Growth after 96 hours Assessment and Plan Assessment: 1. Acute kidney injury from cardiorenal syndrome with diastolic dysfunction and contrast-induced nephropathy. Currently diuresing well. Patient is off of pressors and has been transferred out of the ICU. Renal function continues to improve 2. Diastolic dysfunction 3. Volume overload currently improved 4. Mild metabolic alkalosis secondary to diuresis Plan: Continue current dose of Bumex. Repeat labs in a.m.
[2021-05-07] MEDS: MIDODRINE 5 MG TAB PO SCH ×2 (11:25→15:59)
[2021-05-07 11:45] LABS: Glucose,Whole Blood 132 mg/dL (75-99)
--- NOTE | 2021-05-07 11:49 | P.PN ---
Subjective Progress Note Date: 05/07/21 HISTORY OF PRESENT ILLNESS: This is a 81-year-old gentleman with history of diastolic CHF, previous CVA, hypertension, hyperlipidemia and also chronic atrial fibrillation was brought to the hospital with complaints of rather abrupt onset of weakness and slurred speech with a suspicion for CVA. Initially "stroke was initiated. Apparently patient was hypotensive on arrival. Computed tomography scan of the brain did not reveal any acute abnormalities. CT angiogram the head and neck revealed no evidence of intracranial hemodynamics stenosis. His NIH score was 2. Carotid duplex study was suboptimal but no significant stenosis noted. A chest x-ray showed evidence of CHF and possible bibasilar infiltrates. His echocardiogram showed preserved LV function with evidence of possible moderate to severe aortic stenosis. The echocardiographic studies done over the last several years have shown varying gradient across the aortic valve. Patient's creatinine was high, computed to the previous admissions size to acute renal failure associated with hyperkalemia. Patient was on Lasix 40 mg and also Aldactone 25 mg by mouth twice a day at home. His potassium is high. His urine output has been low. Patient has been hypotensive and has been on Levophed. Patient also on anticoagulation therapy at home. Patient is awake and responds to verbal stimuli. His BUN is 60, creatinine is 2.45. Renal consult is initiated. The picture could be consistent with a diastolic CHF though concomitant pneumonia and sepsis cannot be excluded. I will initiate on IV Lasix drip and await further recommendations of the senior backup administrator. Hold off Aldactone. His troponin values are mildly elevated but not consistent with acute myocardial injury pattern. His EKG showed atrial fibrillation with a right bundle-branch block without any acute changes. Further recommendations depend upon clinical course. 05/02/2021: This patient seemed to be little more stable. Still on vasopressors for the blood pressure. Patient seemed to be awake but sleepy. He was able to take in his his . His urine output has been slow. A chest x-ray showed some improvement. His kidney function remained stable, but potassium is high. Nephrology is following and correcting potassium levels. Patient is initiated on IV Bumex. Patient also has a dusky ischemic-looking feet. Also having mild fevers. Patient is going to have a calcitonin and also blood cultures. Patient will continue current management. Collar for possible underlying sepsis. Prognosis is guarded. We will follow. 05/03/2021: Patient seemed to be a little more alert. Still looks frail and weak, Denies any chest pain or shortness of breath. on small dose of Levophed and maintaining systolic blood pressure of about 110. Patient is in atrial fibrillation with moderately rapid ventricular response. We're going to start him on oral amiodarone 200 mg by mouth twice a day. Is on IV Bumex and seemed to be having reasonably and output. His creatinine has shown some improvement. Potassium levels are normal. Lungs show diminished breath sounds. Heart systolic murmur heard. Chest x-ray showed signs of CHF and pleural effusion. We'll continue current management except adding oral amiodarone. 05/04/2021: Patient's to be much more alert today and seemed to be more responsive and less distress. His urine output is very good test. Chest x-ray does show some improvement compared to the previous x-rays. His heart rate is still in 100 to 110 range. Patient is on amiodarone by mouth. I'm going to increase the dose to 200 mg by mouth 3 times a day. Patient is being switched from IV Bumex to oral Bumex. Patient is being transferred to telemetry unit. Will follow 05/05/2021: Patient states that he is feeling well today, no chest pain and no shortness of breath. Patient was transferred out of the intensive care unit yesterday and seen today on the cardiac stepdown unit. He remains in atrial fibrillation with controlled rate in the low 100s. Plan is to continue the current dose of amiodarone and add low dose Lopressor. Chest x-ray reveals similar still awaiting of the right heart margin could represent adjacent right middle lobe and right lower lobe collapse, adjacent loculated effusion, mass, pericardial effusion or marked cardiomegaly. Continued moderate right pleural effusion with mild pulmonary vascular congestion. 05/06/2021 Patient examined this morning at the bedside. He denies chest pain or pressure. Denies SOB. He remains on Bumex per nephrology. Creatinine 1.45 today. Telemetry reveals atrial fibrillation with a heart rate around 110. 05/07/2021 Patient examined this morning at the bedside. He denies chest pain or pressure pretty denies shortness of breath. He remains on Bumex per nephrology. Telemetry reveals atrial fibrillation with a heart rate in the 90s. Patient's metoprolol was increased to 3 times a day dosing yesterday. However he is unable to tolerate this due to hypotension. Blood pressure this morning 83/56. PHYSICAL EXAM: VITAL SIGNS: Reviewed. GENERAL: Well-developed in no acute distress. NECK: Supple. No JVD or thyromegaly LUNGS: Respirations even and unlabored. Lungs diminished to auscultation bilaterally. HEART: Irregular rate and rhythm. S1 and S2 heard. Systolic murmur noted. EXTREMITIES: Normal range of motion. No clubbing or cyanosis. Peripheral pulses intact. 1+ bilateral lower extremity edema ASSESSMENT: Acute renal failure Acute hypoxic respiratory failure Chronic atrial fibrillation History of CVA Hyperkalemia Acute on chronic diastolic heart failure PLAN: Continue diuretics per nephrology Decrease metoprolol back to twice a day dosing Add Midodrine 5mg TID Continue telemetry monitoring Continue to monitor BP Further recommendations pending patient course Nurse practitioner note has been reviewed by physician. Signing provider agrees with the documented findings, assessment, and plan of care. Objective - Vital Signs Vital signs: Vital Signs Temp 97.6 F 05/07/21 11:13 Pulse 88 05/07/21 11:33 Resp 20 05/07/21 11:33 BP 96/62 05/07/21 11:13 Pulse Ox 92 L 05/07/21 11:13 Intake & Output 05/06/21 05/07/21 05/07/21 18:59 06:59 18:59 Intake Total 100 10 Output Total 2049 925 600 Balance -1950 -925 -590 Weight 96.5 kg 96.5 kg Intake: IV 100 10 0.9 kvo 100 Invasive Line 3 10 Output: Urine 2049 925 600 Straight 500 Uretheral (Wells) 300 600 Other: Voiding Method Indwelling Catheter Urinal # Voids 1 - Labs CBC & Chem 7: 05/07/21 08:47 05/07/21 08:47 Labs: Abnormal Lab Results - Last 24 Hours (Table) 05/06/21 05/06/21 05/07/21 Range/Units 16:56 20:22 06:18 Plt Count (150-450) k/uL Sodium (137-145) mmol/L Chloride (98-107) mmol/L Carbon Dioxide (22-30) mmol/L BUN (9-20) mg/dL Creatinine (0.66-1.25) mg/dL Glucose (74-99) mg/dL POC Glucose (mg/dL) 115 H 189 H 103 H (75-99) mg/dL Total Bilirubin (0.2-1.3) mg/dL AST (17-59) U/L Total Protein (6.3-8.2) g/dL Albumin (3.5-5.0) g/dL 05/07/21 05/07/21 05/07/21 Range/Units 08:47 08:47 11:43 Plt Count 71 L (150-450) k/uL Sodium 133 L (137-145) mmol/L Chloride 92 L (98-107) mmol/L Carbon Dioxide 35 H (22-30) mmol/L BUN 32 H (9-20) mg/dL Creatinine 1.46 H (0.66-1.25) mg/dL Glucose 125 H (74-99) mg/dL POC Glucose (mg/dL) 132 H (75-99) mg/dL Total Bilirubin 4.2 H (0.2-1.3) mg/dL AST 62 H (17-59) U/L Total Protein 6.2 L (6.3-8.2) g/dL Albumin 3.2 L (3.5-5.0) g/dL Microbiology - Last 24 Hours (Table) 05/02/21 09:51 Blood Culture - Preliminary Blood No Growth after 96 hours 05/02/21 09:49 Blood Culture - Preliminary Blood No Growth after 96 hours
[2021-05-07 13:10] LABS: Basophils # (M) 0.07 k/uL (0-0.2); Eosinophils # (M) 0.07 k/uL (0-0.7); Lymphocytes # (M) 0.95 k/uL (1.0-4.8); Monocytes # (M) 0.61 k/uL (0-1.0); Neutrophils % (M) 75 %; Nucleated Red Blood Cells 0 /100 WBC (0-0); Total Cells Counted 100
--- NOTE | 2021-05-07 15:59 | US ---
EXAMINATION TYPE: US chest DATE OF EXAM: 05/07/2021 COMPARISON: Chest x-ray 05/07/2021 CLINICAL HISTORY: Markings for thoracentesis by pulmonary staff. pleural effusion TECHNIQUE: Targeted ultrasound of the posterior lower bilateral EXAM MEASUREMENTS: Right Pleural Effusion pocket size: 9.6 cm - tissue seen pocket Left Pleural Effusion pocket size: 0 cm Right side NOT marked for possible thoracentesis outside the dept. floating tissue seen on anterior portion of pocket, therefore tech did not brad Pulmonologists are able to review the images in the patient?s EMR. IMPRESSIONS: Large right pleural effusion
[2021-05-07 16:46] LABS: Glucose,Whole Blood 128 mg/dL (75-99)
[2021-05-07 19:59] LABS: Glucose,Whole Blood 149 mg/dL (75-99)
[2021-05-08 06:10] LABS: Glucose,Whole Blood 102 mg/dL (75-99)
[2021-05-08] MEDS: MIDODRINE 5 MG TAB PO SCH ×3 (07:07→15:29)
[2021-05-08] MEDS: APIXABAN 5 MG TAB PO SCH ×3 (07:58→21:28)
[2021-05-08] MEDS: METOPROLOL TARTRATE 12.5 MG TAB PO SCH ×3 (07:58→21:27)
[2021-05-08] MEDS: IPRATROPIUM-ALBUTEROL 3 ML NEB INHALATION SCH ×4 (08:50→19:59)
[2021-05-08 09:11] LABS: Basophils % (A) 0 %; Eosinophils # (A) 0.1 k/uL (0-0.7); Eosinophils % (A) 2 %; HCT 54.8 % (39.0-53.0); HGB 16.6 gm/dL (13.0-17.5); Hypochromasia Moderate; Lymphocytes # (A) 1.1 k/uL (1.0-4.8); Lymphocytes % (A) 15 %; MCH 29.5 pg (25.0-35.0); MCHC 30.3 g/dL (31.0-37.0); MCV 97.1 fL (80.0-100.0); Monocytes # (A) 0.4 k/uL (0-1.0); Monocytes % (A) 6 %; Neutrophils # (A) 5.2 k/uL (1.3-7.7); Neutrophils % (A) 73 %; RBC 5.64 m/uL (4.30-5.90); WBC 7.1 k/uL (3.8-10.6)
[2021-05-08 09:15] LABS: Platelet Count 83 k/uL (150-450)
[2021-05-08] MEDS: AMIODARONE 200 MG TAB PO SCH ×3 (09:23→21:28)
[2021-05-08] MEDS: BUMETANIDE 1 MG TAB PO SCH ×2 (09:24→21:27)
[2021-05-08] MEDS: PANTOPRAZOLE 40 MG/10 ML VIAL IV SCH (09:24)
[2021-05-08] MEDS: levETIRAcetam 500 MG TAB PO SCH ×2 (09:24→21:28)
[2021-05-08] MEDS: AMPICILLIN-SULBACTAM 1.5 GM in SODIUM CHLORIDE 0.9% 50 ML IVPB SCH ×2 (09:24→15:34)
[2021-05-08 09:25] LABS: Albumin 3.1 g/dL (3.5-5.0); Calcium 8.5 mg/dL (8.4-10.2); Total Bilirubin 3.3 mg/dL (0.2-1.3); Total Protein 6.1 g/dL (6.3-8.2)
[2021-05-08 09:42] LABS: Potassium 4.1 mmol/L (3.5-5.1)
--- NOTE | 2021-05-08 10:05 | P.PN ---
Subjective Progress Note Date: 05/08/21 Principal diagnosis: Altered mental status On 05/06/2021 patient seen in follow-up on selective care unit. He is awake and alert, denies any acute distress, on 3 L of oxygen his pulse ox is 93%, he is being treated for acute exacerbation of diastolic CHF, remains on Bumex, he is in -3.8 L net fluid balance over the last 24 hours, his last chest x-ray still showing continued moderate right pleural effusion and mild pulmonary vascular congestion. No cough, no chest discomfort. His labs have been reviewed, his sodium is 133, potassium is 4.0, chloride is 91, CO2 36, B1 is 31 creatinine is 1.45. He remains on nebulized bronchodilators, no rhonchi or wheezing noted on today's exam, he is on oral anticoagulation with Eliquis and he is on oral Cordarone 200 mg 3 times a day. He is covered with Unasyn for lower extremity cellulitis. On 05/07/2021 patient seen in follow-up on selective care unit, she is awake and alert, in no acute distress, he is resting in bed, he is generally weak, he requires excessive assist to even sit up in bed, but breathing fairly comforta sukhi, lung sounds reveal some scattered crackles at the bases, no rhonchi or wheezing. He remains on antibiotics for bilateral lower extremity cellulitis. he remains on oral Bumex 3 mg twice daily, and he is in -2.8 L net fluid balance over the last 24 hours, lower extremity edema has significantly improved, on 2 L of oxygen he is satting 91%. No complaints of chest discomfort. No cough, no rhonchi, no wheezing. On 05/08/2021 patient seen in follow-up on selective care unit. He is resting c omfortably in bed, he is currently on 3 L of oxygen pulse ox is 90-94%, breathing comfortably, he remains on Bumex, and he is in -2.2 L net fluid balance over the last 24 hours, he remains generally weak, but yesterday he was able to get up in the recliner with assistance. He is achieving about 500 mL on the incentive spirometer, requires assistance and encouragement to perform it. He is in sinus mechanism, his had no acute events overnight, he denies any worsening dyspnea or cough. Ultrasound of the chest has been completed showing 9.6 cm right pleural effusion pocket as read by the radiologist with floating tissue in the fluid pocket. Ultrasound films have been reviewed by Dr. Siddiqui, and the pleural fluid pocket is not large enough for drainage. Left side was not marked. We'll continue medical treatment at this time. Objective - Vital Signs Vital signs: Vital Signs Temp 98.0 F 05/08/21 07:30 Pulse 85 05/08/21 07:30 Resp 18 05/08/21 07:30 BP 96/70 05/08/21 07:30 Pulse Ox 90 L 05/08/21 07:30 Intake & Output 05/07/21 05/08/21 05/08/21 18:59 06:59 18:59 Intake Total 570 20 Output Total 1300 1500 600 Balance -730 -1500 -580 Weight 96 kg Intake: IV 30 20 Invasive Line 3 30 20 Oral 540 Output: Urine 1300 1500 600 Uretheral (Wells) 1300 600 Other: Voiding Method Indwelling Catheter Indwelling Catheter Indwelling Catheter # Voids 1 - Exam GENERAL EXAM: Alert, pleasant, 81-year-old white male, appears chronically ill and debilitated, but appears to be in no acute distress on 3 L of oxygen and a pulse ox of 90-94%, speech is slightly slow and possibly dysarthric comfortable in no apparent distress. HEAD: Normocephalic/atraumatic. EYES: Normal reaction of pupils, equal size. Conjunctiva pink, sclera white. NOSE: Clear with pink turbinates. THROAT: No erythema or exudates. NECK: No masses, no JVD, no thyroid enlargement, no adenopathy. CHEST: No chest wall deformity. Symmetrical expansion. LUNGS: Equal air entry with major depressive sounds with some scattered crackles CVS: Irregular rate and rhythm, normal S1 and S2, no gallops, systolic murmur present at the left border, no rubs ABDOMEN: Soft, nontender. No hepatosplenomegaly, normal bowel sounds, no guarding or rigidity. EXTREMITIES: No clubbing, mild 1+ edema, and cellulitis of bilateral lower extremities, bilateral lower extremities are Lucio wrapped no cyanosis, 2+ pulses and upper and lower extremities. MUSCULOSKELETAL: Muscle strength and tone normal. SPINE: No scoliosis or deformity SKIN: No rashes CENTRAL NERVOUS SYSTEM: Alert and oriented -3. No focal deficits, tone is normal in all 4 extremities. PSYCHIATRIC: Alert and oriented -3. Appropriate affect. Intact judgment and insight. - Labs CBC & Chem 7: 05/08/21 08:35 05/08/21 08:35 Labs: Abnormal Lab Results - Last 24 Hours (Table) 05/07/21 05/07/21 05/07/21 Range/Units 08:47 08:47 11:43 Hct (39.0-53.0) % MCHC (31.0-37.0) g/dL Plt Count 71 L (150-450) k/uL Lymphocytes # (Manual) 0.95 L (1.0-4.8) k/uL Sodium 133 L (137-145) mmol/L Chloride 92 L (98-107) mmol/L Carbon Dioxide 35 H (22-30) mmol/L BUN 32 H (9-20) mg/dL Creatinine 1.46 H (0.66-1.25) mg/dL Glucose 125 H (74-99) mg/dL POC Glucose (mg/dL) 132 H (75-99) mg/dL Total Bilirubin 4.2 H (0.2-1.3) mg/dL AST 62 H (17-59) U/L Total Protein 6.2 L (6.3-8.2) g/dL Albumin 3.2 L (3.5-5.0) g/dL 05/07/21 05/07/21 05/08/21 Range/Units 16:37 19:57 06:06 Hct (39.0-53.0) % MCHC (31.0-37.0) g/dL Plt Count (150-450) k/uL Lymphocytes # (Manual) (1.0-4.8) k/uL Sodium (137-145) mmol/L Chloride (98-107) mmol/L Carbon Dioxide (22-30) mmol/L BUN (9-20) mg/dL Creatinine (0.66-1.25) mg/dL Glucose (74-99) mg/dL POC Glucose (mg/dL) 128 H 149 H 102 H (75-99) mg/dL Total Bilirubin (0.2-1.3) mg/dL AST (17-59) U/L Total Protein (6.3-8.2) g/dL Albumin (3.5-5.0) g/dL 05/08/21 05/08/21 Range/Units 08:35 08:35 Hct 54.8 H (39.0-53.0) % MCHC 30.3 L (31.0-37.0) g/dL Plt Count 83 L (150-450) k/uL Lymphocytes # (Manual) (1.0-4.8) k/uL Sodium 132 L (137-145) mmol/L Chloride 95 L (98-107) mmol/L Carbon Dioxide 31 H (22-30) mmol/L BUN 33 H (9-20) mg/dL Creatinine 1.46 H (0.66-1.25) mg/dL Glucose 127 H (74-99) mg/dL POC Glucose (mg/dL) (75-99) mg/dL Total Bilirubin 3.3 H (0.2-1.3) mg/dL AST 61 H (17-59) U/L Total Protein 6.1 L (6.3-8.2) g/dL Albumin 3.1 L (3.5-5.0) g/dL Microbiology - Last 24 Hours (Table) 05/02/21 09:51 Blood Culture - Preliminary Blood No Growth after 120 hours 05/02/21 09:49 Blood Culture - Preliminary Blood No Growth after 120 hours Assessment and Plan Plan: Assessment: #1. Acute hypoxic respiratory failure related to an acute exacerbation of suspected diastolic CHF #2. Acute cardiogenic shock related to diastolic CHF, resolved #3. Bilateral pleural effusions, ultrasound of the chest from 05/07/2021 showed right pleural effusion pocket with floating tissue in the pleural fluid, not large enough for thoracentesis #4. Acute kidney injury, likely related to cardiorenal etiology, improving #5. Acute hyperkalemia, improved and resolved #6. Febrile illness possibly related to cellulitis, currently on Unasyn #7. Moderate to severe aortic stenosis #8. Chronic A. fib on Eliquis #9. History of chronic lower extremity edema with changes of chronic venous stasis #10. History of epilepsy following a CVA #11. History of CVA #12. History of hypertension #13. Hyperlipidemia #14. History of prostate cancer status post radiation Plan: Ultrasound of the chest has been reviewed Right pleural effusion is not large enough for thoracentesis and has floating tissue We will continue medical treatment with diuretics Provide incentive spirometer and encourage the patient to use it Increase activity as tolerated encourage patient to sit up in the recliner Discharge planning is in progress for possible discharge to [facility] I performed a history & physical examination of the patient and discussed their management with my nurse practitioner, Cata Ku. I reviewed the nurse practitioner's note and agree with the documented findings and plan of care. Lung sounds are positive for dim breath sounds throughout the lung butler. The findings and the impression was discussed with the patient. I attest to the documentation by the nurse practitioner. I have personally seen and examined the patient, performed the documentation and the assessment and plan as written. Number of minutes spent on the visit: [10] Time with Patient: Less than 30
[2021-05-08 11:16] VITALS: RESP 18
--- NOTE | 2021-05-08 12:17 | P.PN ---
Subjective Progress Note Date: 05/08/21 HISTORY OF PRESENT ILLNESS: This is a 81-year-old gentleman with history of diastolic CHF, previous CVA, hypertension, hyperlipidemia and also chronic atrial fibrillation was brought to the hospital with complaints of rather abrupt onset of weakness and slurred speech with a suspicion for CVA. Initially "stroke was initiated. Apparently patient was hypotensive on arrival. Computed tomography scan of the brain did not reveal any acute abnormalities. CT angiogram the head and neck revealed no evidence of intracranial hemodynamics stenosis. His NIH score was 2. Carotid duplex study was suboptimal but no significant stenosis noted. A chest x-ray showed evidence of CHF and possible bibasilar infiltrates. His echocardiogram showed preserved LV function with evidence of possible moderate to severe aortic stenosis. The echocardiographic studies done over the last several years have shown varying gradient across the aortic valve. Patient's creatinine was high, computed to the previous admissions size to acute renal failure associated with hyperkalemia. Patient was on Lasix 40 mg and also Aldactone 25 mg by mouth twice a day at home. His potassium is high. His urine output has been low. Patient has been hypotensive and has been on Levophed. Patient also on anticoagulation therapy at home. Patient is awake and responds to verbal stimuli. His BUN is 60, creatinine is 2.45. Renal consult is initiated. The picture could be consistent with a diastolic CHF though concomitant pneumonia and sepsis cannot be excluded. I will initiate on IV Lasix drip and await further recommendations of the counseling psychologist. Hold off Aldactone. His troponin values are mildly elevated but not consistent with acute myocardial injury pattern. His EKG showed atrial fibrillation with a right bundle-branch block without any acute changes. Further recommendations depend upon clinical course. 05/02/2021: This patient seemed to be little more stable. Still on vasopressors for the blood pressure. Patient seemed to be awake but sleepy. He was able to take in his his . His urine output has been slow. A chest x-ray showed some improvement. His kidney function remained stable, but potassium is high. Nephrology is following and correcting potassium levels. Patient is initiated on IV Bumex. Patient also has a dusky ischemic-looking feet. Also having mild fevers. Patient is going to have a calcitonin and also blood cultures. Patient will continue current management. Collar for possible underlying sepsis. Prognosis is guarded. We will follow. 05/03/2021: Patient seemed to be a little more alert. Still looks frail and weak, Denies any chest pain or shortness of breath. on small dose of Levophed and maintaining systolic blood pressure of about 110. Patient is in atrial fibrillation with moderately rapid ventricular response. We're going to start him on oral amiodarone 200 mg by mouth twice a day. Is on IV Bumex and seemed to be having reasonably and output. His creatinine has shown some improvement. Potassium levels are normal. Lungs show diminished breath sounds. Heart systolic murmur heard. Chest x-ray showed signs of CHF and pleural effusion. We'll continue current management except adding oral amiodarone. 05/04/2021: Patient's to be much more alert today and seemed to be more responsive and less distress. His urine output is very good test. Chest x-ray does show some improvement compared to the previous x-rays. His heart rate is still in 100 to 110 range. Patient is on amiodarone by mouth. I'm going to increase the dose to 200 mg by mouth 3 times a day. Patient is being switched from IV Bumex to oral Bumex. Patient is being transferred to telemetry unit. Will follow 05/05/2021: Patient states that he is feeling well today, no chest pain and no shortness of breath. Patient was transferred out of the intensive care unit yesterday and seen today on the cardiac stepdown unit. He remains in atrial fibrillation with controlled rate in the low 100s. Plan is to continue the current dose of amiodarone and add low dose Lopressor. Chest x-ray reveals similar still awaiting of the right heart margin could represent adjacent right middle lobe and right lower lobe collapse, adjacent loculated effusion, mass, pericardial effusion or marked cardiomegaly. Continued moderate right pleural effusion with mild pulmonary vascular congestion. 05/06/2021 Patient examined this morning at the bedside. He denies chest pain or pressure. Denies SOB. He remains on Bumex per nephrology. Creatinine 1.45 today. Telemetry reveals atrial fibrillation with a heart rate around 110. 05/07/2021 Patient examined this morning at the bedside. He denies chest pain or pressure pretty denies shortness of breath. He remains on Bumex per nephrology. Telemetry reveals atrial fibrillation with a heart rate in the 90s. Patient's metoprolol was increased to 3 times a day dosing yesterday. However he is unable to tolerate this due to hypotension. Blood pressure this morning 83/56. 05/08/2021 Patient examined this morning at the bedside. He denies chest pain or pressure. Denies SOB. He remains on Bumex per nephrology. Patients blood pressure slightly improved with adding Midodrine yesterday. He remains in afib with controlled ventricular rates. PHYSICAL EXAM: VITAL SIGNS: Reviewed. GENERAL: Well-developed in no acute distress. NECK: Supple. No JVD or thyromegaly LUNGS: Respirations even and unlabored. Lungs diminished to auscultation bilaterally. HEART: Irregular rate and rhythm. S1 and S2 heard. Systolic murmur noted. EXTREMITIES: Normal range of motion. No clubbing or cyanosis. Peripheral pulses intact. 1+ bilateral lower extremity edema ASSESSMENT: Acute renal failure Acute hypoxic respiratory failure Chronic atrial fibrillation History of CVA Hyperkalemia Acute on chronic diastolic heart failure PLAN: Continue diuretics per nephrology Continue Midodrine Continue metoprolol. Hold for SBP less than 90. Continue telemetry monitoring Continue to monitor BP Further recommendations pending patient course Nurse practitioner note has been reviewed by physician. Signing provider agrees with the documented findings, assessment, and plan of care. Objective - Vital Signs Vital signs: Vital Signs Temp 98.2 F 05/08/21 11:14 Pulse 83 05/08/21 11:14 Resp 18 05/08/21 11:14 BP 96/64 05/08/21 11:14 Pulse Ox 94 L 05/08/21 11:14 Intake & Output 05/07/21 05/08/21 05/08/21 18:59 06:59 18:59 Intake Total 570 1320 Output Total 1300 1500 775 Balance -730 -1500 545 Weight 96 kg Intake: IV 30 120 Ampicillin-Sulbactam 1.5 100 gm In Sodium Chloride 0.9 % 50 ml @ 100 mls/hr IVPB Q8HR [facility] Rx#:[id number] Invasive Line 3 30 20 Oral 540 1200 Output: Urine 1300 1500 775 Uretheral (Wells) 1300 775 Other: Voiding Method Indwelling Catheter Indwelling Catheter Indwelling Catheter # Voids 1 - Labs CBC & Chem 7: 05/08/21 08:35 05/08/21 08:35 Labs: Abnormal Lab Results - Last 24 Hours (Table) 05/07/21 05/07/21 05/07/21 Range/Units 08:47 16:37 19:57 Hct (39.0-53.0) % MCHC (31.0-37.0) g/dL Plt Count (150-450) k/uL Lymphocytes # (Manual) 0.95 L (1.0-4.8) k/uL Sodium (137-145) mmol/L Chloride (98-107) mmol/L Carbon Dioxide (22-30) mmol/L BUN (9-20) mg/dL Creatinine (0.66-1.25) mg/dL Glucose (74-99) mg/dL POC Glucose (mg/dL) 128 H 149 H (75-99) mg/dL Total Bilirubin (0.2-1.3) mg/dL AST (17-59) U/L Total Protein (6.3-8.2) g/dL Albumin (3.5-5.0) g/dL 05/08/21 05/08/21 05/08/21 Range/Units 06:06 08:35 08:35 Hct 54.8 H (39.0-53.0) % MCHC 30.3 L (31.0-37.0) g/dL Plt Count 83 L (150-450) k/uL Lymphocytes # (Manual) (1.0-4.8) k/uL Sodium 132 L (137-145) mmol/L Chloride 95 L (98-107) mmol/L Carbon Dioxide 31 H (22-30) mmol/L BUN 33 H (9-20) mg/dL Creatinine 1.46 H (0.66-1.25) mg/dL Glucose 127 H (74-99) mg/dL POC Glucose (mg/dL) 102 H (75-99) mg/dL Total Bilirubin 3.3 H (0.2-1.3) mg/dL AST 61 H (17-59) U/L Total Protein 6.1 L (6.3-8.2) g/dL Albumin 3.1 L (3.5-5.0) g/dL Microbiology - Last 24 Hours (Table) 05/02/21 09:51 Blood Culture - Preliminary Blood No Growth after 120 hours 05/02/21 09:49 Blood Culture - Preliminary Blood No Growth after 120 hours
[2021-05-08 12:21] LABS: Glucose,Whole Blood 148 mg/dL (75-99)
--- NOTE | 2021-05-08 12:26 | P.PN ---
Subjective Patient is seen for follow-up for acute kidney injury on top of chronic kidney disease. Etiology for acute kidney injury is cardiorenal syndrome and contrast-induced nephropathy. Patient is maintained on Bumex which has been switched to by mouth from IV drip. Patient has had good urine output. 2.9 L noted for 24 hours. Negative net UF of about 2 L No complaints of chest pain shortness of breath. No nausea or vomiting. Creatinine is down to 1.45, stable Objective - Vital Signs Vital signs: Vital Signs Temp 98.2 F 05/08/21 11:14 Pulse 83 05/08/21 11:14 Resp 18 05/08/21 11:14 BP 96/64 05/08/21 11:14 Pulse Ox 94 L 05/08/21 11:14 Intake & Output 05/07/21 05/08/21 05/08/21 18:59 06:59 18:59 Intake Total 570 1320 Output Total 1300 1500 775 Balance -730 -1500 545 Weight 96 kg Intake: IV 30 120 Ampicillin-Sulbactam 1.5 100 gm In Sodium Chloride 0.9 % 50 ml @ 100 mls/hr IVPB Q8HR [facility] Rx#:[id number] Invasive Line 3 30 20 Oral 540 1200 Output: Urine 1300 1500 775 Uretheral (Wells) 1300 775 Other: Voiding Method Indwelling Catheter Indwelling Catheter Indwelling Catheter # Voids 1 - Exam Patient is awake comfortable. Not in any acute distress. Examination of the heart S1 and S2 Examination lungs decreased breath sounds bilateral bases Abdomen is soft nontender Examination lower extremities shows legs are wrapped CHEMICAL RESEARCH TECHNICIAN exam grossly intact - Labs CBC & Chem 7: 05/08/21 08:35 05/08/21 08:35 Labs: Abnormal Lab Results - Last 24 Hours (Table) 05/07/21 05/07/21 05/07/21 Range/Units 08:47 16:37 19:57 Hct (39.0-53.0) % MCHC (31.0-37.0) g/dL Plt Count (150-450) k/uL Lymphocytes # (Manual) 0.95 L (1.0-4.8) k/uL Sodium (137-145) mmol/L Chloride (98-107) mmol/L Carbon Dioxide (22-30) mmol/L BUN (9-20) mg/dL Creatinine (0.66-1.25) mg/dL Glucose (74-99) mg/dL POC Glucose (mg/dL) 128 H 149 H (75-99) mg/dL Total Bilirubin (0.2-1.3) mg/dL AST (17-59) U/L Total Protein (6.3-8.2) g/dL Albumin (3.5-5.0) g/dL 05/08/21 05/08/21 05/08/21 Range/Units 06:06 08:35 08:35 Hct 54.8 H (39.0-53.0) % MCHC 30.3 L (31.0-37.0) g/dL Plt Count 83 L (150-450) k/uL Lymphocytes # (Manual) (1.0-4.8) k/uL Sodium 132 L (137-145) mmol/L Chloride 95 L (98-107) mmol/L Carbon Dioxide 31 H (22-30) mmol/L BUN 33 H (9-20) mg/dL Creatinine 1.46 H (0.66-1.25) mg/dL Glucose 127 H (74-99) mg/dL POC Glucose (mg/dL) 102 H (75-99) mg/dL Total Bilirubin 3.3 H (0.2-1.3) mg/dL AST 61 H (17-59) U/L Total Protein 6.1 L (6.3-8.2) g/dL Albumin 3.1 L (3.5-5.0) g/dL 05/08/21 Range/Units 12:10 Hct (39.0-53.0) % MCHC (31.0-37.0) g/dL Plt Count (150-450) k/uL Lymphocytes # (Manual) (1.0-4.8) k/uL Sodium (137-145) mmol/L Chloride (98-107) mmol/L Carbon Dioxide (22-30) mmol/L BUN (9-20) mg/dL Creatinine (0.66-1.25) mg/dL Glucose (74-99) mg/dL POC Glucose (mg/dL) 148 H (75-99) mg/dL Total Bilirubin (0.2-1.3) mg/dL AST (17-59) U/L Total Protein (6.3-8.2) g/dL Albumin (3.5-5.0) g/dL Microbiology - Last 24 Hours (Table) 05/02/21 09:51 Blood Culture - Preliminary Blood No Growth after 120 hours 05/02/21 09:49 Blood Culture - Preliminary Blood No Growth after 120 hours Assessment and Plan Assessment: 1. Acute kidney injury from cardiorenal syndrome with diastolic dysfunction and contrast-induced nephropathy. Currently diuresing well. Patient is off of pressors and has been transferred out of the ICU. Renal function continues to improve 2. Diastolic dysfunction 3. Volume overload currently improved 4. Mild metabolic alkalosis secondary to diuresis Plan: Continue current dose of Bumex. Repeat labs in a.m. Continue with midodrine
[2021-05-08 16:58] LABS: Glucose,Whole Blood 140 mg/dL (75-99)
--- NOTE | 2021-05-08 17:20 | P.PN ---
Subjective Progress Note Date: 05/07/21 This is an 81-year-old gentleman with history of prior CVA 2, hypertension, hyperlipidemia, chronic atrial fibrillation-anticoagulated on Eliquis, CHF and multiple other medical issues brought to the ER via EMS with increased weakness, slurred speech, with concerns for possible CVA. Denied nausea, vomiting or abdominal pain. On arrival patient was cyanotic, hypotensive, temperature 94F degrees rectally, tachypneic, O2 sat 84% on room air.Code stroke initially called. NIH score 2. Brain CT reported no acute intracranial abnormality, old right parietal cortical infarct, no significant change. CTA of head and neck limited exam, reported no evidence of intracranial hemodynamic stenosis, carotid arteries of the neck not well evaluated and thrombosis is possible, large left vertebral artery-possible that entire intracranial circulation of the left vertebral artery.Carotid Dopplers study suboptimal reported no hemodynamic significant stenosis. Chest x-ray reporting pulmonary edema with right pleural effusion. ProBNP 1920.EKG reportedly atrial fibrillation with right bundle branch block. Troponins 0.042, 0.045. Echo reporting preserved LV function with moderate to severe aortic stenosis. On admission, WBC 6, hemoglobin 17.3, platelets 101, INR 1.5, sodium 134, potassium 6.2-currently down to 5.9, chloride 97, bicarb 24, BUN 61, creatinine 2.46, T bili 2.6, AST 92, ALT 40. UA negative. Coronavirus detected. Currently on BiPAP and maintaining O2 sats in the 90s, under a warming blanket. 05/02/2021 Fatigued,more alert this morning, BiPAP during the night, currently maintaining O2 sats in the 90s on 35% Ventimask. Maintained on Levophed. Chest x-ray reporting no significant interval change -persistent prominent interstitial lung markings and pulmonary vascular congestion/pulmonary edema . 24 hour I&O reflecting a positive fluid balance .Minimal urine output, Bumex drip ordered. Diarrhea, tested negative for C. difficile colitis. Bear hugger off.T-max 100.8, normal WBC, tachycardic. Recently removed off the BiPAP and currently on 35% Ventimask, maintaining O2 sats in the 90s. Hemoglobin 17.7, platelets 106, sodium 139, potassium 6.1, BUN 64, creatinine 2.61, total bili 3.4, AST 87, ALT 48, alk phos 80. 05/07/2021 significant weakness, nursing reporting total max assist 4. Maintained on nebulized bronchodilators, antibiotics. Maintaining O2 sats in the low 90s on 2 L nasal cannula. Diuresing well on oral Bumex with 24-hour I&O reflecting a negative fluid balance. BUN 32, creatinine 1.46. Telemetry atrial fibrillation , hypotension. Afebrile, normal WBC. Denies chest pain, palpitations or increased in shortness of breath. Objective - Vital Signs Vital signs: Vital Signs Temp 97.6 F 05/07/21 11:13 Pulse 88 05/07/21 11:33 Resp 20 05/07/21 11:33 BP 96/62 05/07/21 11:13 Pulse Ox 92 L 05/07/21 11:13 Intake & Output 05/06/21 05/07/21 05/07/21 18:59 06:59 18:59 Intake Total 100 10 Output Total 2049 925 600 Balance -1950 -925 -590 Weight 96.5 kg 96.5 kg Intake: IV 100 10 0.9 kvo 100 Invasive Line 3 10 Output: Urine 2049 925 600 Straight 500 Uretheral (Wells) 300 600 Other: Voiding Method Indwelling Catheter Urinal # Voids 1 - Exam - Exam GENERAL: Sitting up in bed, weak, no acute distress HEENT: Head is atraumatic, normocephalic. Pupils are equal, round, and reactive to light. Sclerae anicteric. Conjunctivae are clear. Mucus membranes of the mouth are moist. NECK: supple, no JVD. RESPIRATORY: Diminished with Bibasilar crackles. CARDIOVASCULAR: Irregular rate and rhythm. Regular S1 and S2 noted. Positive systolic murmur auscultated. GASTROINTESTINAL: Soft, No distention noted .Normal active bowel sounds auscultated. No tenderness. No guarding, no rigidity. EXTREMITIES: Bilateral Lucio wraps clean dry and intact, decreasing edema NEUROLOGIC: Cranial nerves II-XII intact. PSYCHIATRIC: Awake, alert, and oriented X 2-3. Appropriate affect. Intact judgement and insight. - Labs CBC & Chem 7: 05/08/21 08:35 05/08/21 08:35 Labs: Abnormal Lab Results - Last 24 Hours (Table) 05/06/21 05/06/21 05/07/21 Range/Units 16:56 20:22 06:18 Plt Count (150-450) k/uL Sodium (137-145) mmol/L Chloride (98-107) mmol/L Carbon Dioxide (22-30) mmol/L BUN (9-20) mg/dL Creatinine (0.66-1.25) mg/dL Glucose (74-99) mg/dL POC Glucose (mg/dL) 115 H 189 H 103 H (75-99) mg/dL Total Bilirubin (0.2-1.3) mg/dL AST (17-59) U/L Total Protein (6.3-8.2) g/dL Albumin (3.5-5.0) g/dL 05/07/21 05/07/21 05/07/21 Range/Units 08:47 08:47 11:43 Plt Count 71 L (150-450) k/uL Sodium 133 L (137-145) mmol/L Chloride 92 L (98-107) mmol/L Carbon Dioxide 35 H (22-30) mmol/L BUN 32 H (9-20) mg/dL Creatinine 1.46 H (0.66-1.25) mg/dL Glucose 125 H (74-99) mg/dL POC Glucose (mg/dL) 132 H (75-99) mg/dL Total Bilirubin 4.2 H (0.2-1.3) mg/dL AST 62 H (17-59) U/L Total Protein 6.2 L (6.3-8.2) g/dL Albumin 3.2 L (3.5-5.0) g/dL Microbiology - Last 24 Hours (Table) 05/02/21 09:51 Blood Culture - Preliminary Blood No Growth after 96 hours 05/02/21 09:49 Blood Culture - Preliminary Blood No Growth after 96 hours Assessment and Plan Assessment: Acute cardiogenic shock secondary to Acute diastolic CHF exacerbation. Acute hypoxic respiratory failure, status post BiPAP dependent Acute renal failure secondary to ATN related to the above, cardiorenal syndrome. Hyperkalemia secondary to the above, resolved Moderate to severe aortic stenosis Troponin leak Chronic A. fib on anticoagulation History of CVA 2 Epilepsy , history of, on Keppra with history of Chronic lower extremity venous stasis changes, ischemic appearing Hypertension, history of Hyperlipidemia Plan: Continue on current medication regime ,monitoring and symptomatic treatment. Antiarrhythmics as per cardiology, further adjustments pending- hypotensive .Diuretics as per nephrology , close monitoring of renal function with repeat labs ordered for a.m. PT/OT, subacute rehab at discharge. Prognosis guarded given multiple complex medical issues. The impression and plan of care has been dictated as directed. : I performed a history and examination of this patient, discussed the same with the dictator. I agree with the dictator's note ,documented as a scribe. Any additional findings or plans will be noted.
--- NOTE | 2021-05-08 17:29 | P.PN ---
Subjective Progress Note Date: 05/08/21 This is an 81-year-old gentleman with history of prior CVA 2, hypertension, hyperlipidemia, chronic atrial fibrillation-anticoagulated on Eliquis, CHF and multiple other medical issues brought to the ER via EMS with increased weakness, slurred speech, with concerns for possible CVA. Denied nausea, vomiting or abdominal pain. On arrival patient was cyanotic, hypotensive, temperature 94F degrees rectally, tachypneic, O2 sat 84% on room air.Code stroke initially called. NIH score 2. Brain CT reported no acute intracranial abnormality, old right parietal cortical infarct, no significant change. CTA of head and neck limited exam, reported no evidence of intracranial hemodynamic stenosis, carotid arteries of the neck not well evaluated and thrombosis is possible, large left vertebral artery-possible that entire intracranial circulation of the left vertebral artery.Carotid Dopplers study suboptimal reported no hemodynamic significant stenosis. Chest x-ray reporting pulmonary edema with right pleural effusion. ProBNP 1920.EKG reportedly atrial fibrillation with right bundle branch block. Troponins 0.042, 0.045. Echo reporting preserved LV function with moderate to severe aortic stenosis. On admission, WBC 6, hemoglobin 17.3, platelets 101, INR 1.5, sodium 134, potassium 6.2-currently down to 5.9, chloride 97, bicarb 24, BUN 61, creatinine 2.46, T bili 2.6, AST 92, ALT 40. UA negative. Coronavirus detected. Currently on BiPAP and maintaining O2 sats in the 90s, under a warming blanket. 05/02/2021 Fatigued,more alert this morning, BiPAP during the night, currently maintaining O2 sats in the 90s on 35% Ventimask. Maintained on Levophed. Chest x-ray reporting no significant interval change -persistent prominent interstitial lung markings and pulmonary vascular congestion/pulmonary edema . 24 hour I&O reflecting a positive fluid balance .Minimal urine output, Bumex drip ordered. Diarrhea, tested negative for C. difficile colitis. Bear hugger off.T-max 100.8, normal WBC, tachycardic. Recently removed off the BiPAP and currently on 35% Ventimask, maintaining O2 sats in the 90s. Hemoglobin 17.7, platelets 106, sodium 139, potassium 6.1, BUN 64, creatinine 2.61, total bili 3.4, AST 87, ALT 48, alk phos 80. 05/07/2021 significant weakness, nursing reporting total max assist 4. Maintained on nebulized bronchodilators, antibiotics. Maintaining O2 sats in the low 90s on 2 L nasal cannula. Diuresing well on oral Bumex with 24-hour I&O reflecting a negative fluid balance. BUN 32, creatinine 1.46. Telemetry atrial fibrillation , hypotension. Afebrile, normal WBC. Denies chest pain, palpitations or increased in shortness of breath. 05/08/2021 more alert, engaging in conversation. hypotension improved with the addition of midodrine and decreased beta blanquita yesterday. 24-hour I&O remains in a negative fluid balance on oral Bumex. Developed urinary retention requiring Wells catheter. Hematuria clearing. Chest ultrasound yesterday reporting large right pleural effusion, further evaluation per pulmonary. Maintaining O2 sats in the 90s on 3 L nasal cannula. Objective - Vital Signs Vital signs: Vital Signs Temp 97.8 F 05/08/21 15:24 Pulse 85 05/08/21 15:24 Resp 18 05/08/21 15:24 BP 103/70 05/08/21 15:24 Pulse Ox 94 L 05/08/21 15:24 Intake & Output 05/07/21 05/08/21 05/08/21 18:59 06:59 18:59 Intake Total 570 1340 Output Total 1300 1500 2024 Balance -730 -1500 -68 Weight 96 kg Intake: IV 30 140 Ampicillin-Sulbactam 1.5 100 gm In Sodium Chloride 0.9 % 50 ml @ 100 mls/hr IVPB Q8HR [facility] Rx#:[id number] Invasive Line 3 30 40 Oral 540 1200 Output: Urine 1300 1500 2024 Uretheral (Wells) 1300 2024 Other: Voiding Method Indwelling Catheter Indwelling Catheter Indwelling Catheter # Voids 1 - Exam - Exam GENERAL: Sitting up in bed, weak, more alert, no acute distress HEENT: Head is atraumatic, normocephalic. Pupils are equal, round, and reactive to light. Sclerae anicteric. Conjunctivae are clear. Mucus membranes of the mouth are moist. NECK: supple, no JVD. RESPIRATORY: Diminished with Bibasilar crackles. CARDIOVASCULAR: Irregular rate and rhythm. Regular S1 and S2 noted. Positive systolic murmur auscultated. GASTROINTESTINAL: Soft, No distention noted .Normal active bowel sounds auscultated. No tenderness. No guarding, no rigidity. EXTREMITIES: Bilateral Lucio wraps clean dry and intact, decreasing edema NEUROLOGIC: Cranial nerves II-XII intact. PSYCHIATRIC: Awake, alert, and oriented X 2-3. Appropriate affect. Intact judgement and insight. - Labs CBC & Chem 7: 05/08/21 08:35 05/08/21 08:35 Labs: Abnormal Lab Results - Last 24 Hours (Table) 05/07/21 05/08/21 05/08/21 Range/Units 19:57 06:06 08:35 Hct 54.8 H (39.0-53.0) % MCHC 30.3 L (31.0-37.0) g/dL Plt Count 83 L (150-450) k/uL Sodium (137-145) mmol/L Chloride (98-107) mmol/L Carbon Dioxide (22-30) mmol/L BUN (9-20) mg/dL Creatinine (0.66-1.25) mg/dL Glucose (74-99) mg/dL POC Glucose (mg/dL) 149 H 102 H (75-99) mg/dL Total Bilirubin (0.2-1.3) mg/dL AST (17-59) U/L Total Protein (6.3-8.2) g/dL Albumin (3.5-5.0) g/dL 05/08/21 05/08/21 05/08/21 Range/Units 08:35 12:10 16:56 Hct (39.0-53.0) % MCHC (31.0-37.0) g/dL Plt Count (150-450) k/uL Sodium 132 L (137-145) mmol/L Chloride 95 L (98-107) mmol/L Carbon Dioxide 31 H (22-30) mmol/L BUN 33 H (9-20) mg/dL Creatinine 1.46 H (0.66-1.25) mg/dL Glucose 127 H (74-99) mg/dL POC Glucose (mg/dL) 148 H 140 H (75-99) mg/dL Total Bilirubin 3.3 H (0.2-1.3) mg/dL AST 61 H (17-59) U/L Total Protein 6.1 L (6.3-8.2) g/dL Albumin 3.1 L (3.5-5.0) g/dL Microbiology - Last 24 Hours (Table) 05/02/21 09:49 Blood Culture - Final Blood No Growth after 144 hours 05/02/21 09:51 Blood Culture - Final Blood No Growth after 144 hours Assessment and Plan Assessment: Acute cardiogenic shock secondary to Acute diastolic CHF exacerbation. Acute hypoxic respiratory failure, status post BiPAP dependent Acute renal failure secondary to ATN related to the above, cardiorenal syndrome. Hyperkalemia secondary to the above, resolved Moderate to severe aortic stenosis Troponin leak Chronic A. fib on anticoagulation History of CVA 2 Epilepsy , history of, on Keppra with history of Chronic lower extremity venous stasis changes, ischemic appearing Hypertension, history of Hyperlipidemia Plan: Continue on current medication regime ,monitoring and symptomatic treatment. Right pleural effusion pocket with floating tissue in the pleural fluid, ultrasound reviewed by pulmonary,not large enough for thoracentesis. M aintain diuretics as per nephrology , close monitoring of renal function with repeat labs ordered for a.m. aggressive pulmonary toileting with incentive spirometer reinforced. PT/OT, subacute rehab at discharge. Prognosis guarded given multiple complex medical issues. The impression and plan of care has been dictated as directed. : I performed a history and examination of this patient, discussed the same with the dictator. I agree with the dictator's note ,documented as a scribe. Any a dditional findings or plans will be noted.
[2021-05-08 20:07] LABS: Glucose,Whole Blood 119 mg/dL (75-99)
[2021-05-09] MEDS: AMPICILLIN-SULBACTAM 1.5 GM in SODIUM CHLORIDE 0.9% 50 ML IVPB SCH ×2 (00:15→09:37)
[2021-05-09 06:05] LABS: Glucose,Whole Blood 113 mg/dL (75-99)
[2021-05-09] MEDS: MIDODRINE 5 MG TAB PO SCH ×3 (06:50→17:07)
[2021-05-09] MEDS: IPRATROPIUM-ALBUTEROL 3 ML NEB INHALATION SCH ×2 (08:37→12:17)
[2021-05-09 08:38] VITALS: TEMP 97.4
[2021-05-09] MEDS: APIXABAN 5 MG TAB PO SCH (09:38)
[2021-05-09] MEDS: METOPROLOL TARTRATE 12.5 MG TAB PO SCH (09:38)
[2021-05-09] MEDS: PANTOPRAZOLE 40 MG/10 ML VIAL IV SCH (09:38)
[2021-05-09] MEDS: AMIODARONE 200 MG TAB PO SCH (09:38)
[2021-05-09] MEDS: levETIRAcetam 500 MG TAB PO SCH (09:38)
[2021-05-09] MEDS: BUMETANIDE 1 MG TAB PO SCH (09:38)
--- NOTE | 2021-05-09 09:49 | P.PN ---
Subjective Progress Note Date: 05/09/21 Principal diagnosis: Altered mental status On 05/06/2021 patient seen in follow-up on selective care unit. He is awake and alert, denies any acute distress, on 3 L of oxygen his pulse ox is 93%, he is being treated for acute exacerbation of diastolic CHF, remains on Bumex, he is in -3.8 L net fluid balance over the last 24 hours, his last chest x-ray still showing continued moderate right pleural effusion and mild pulmonary vascular congestion. No cough, no chest discomfort. His labs have been reviewed, his sodium is 133, potassium is 4.0, chloride is 91, CO2 36, B1 is 31 creatinine is 1.45. He remains on nebulized bronchodilators, no rhonchi or wheezing noted on today's exam, he is on oral anticoagulation with Eliquis and he is on oral Cordarone 200 mg 3 times a day. He is covered with Unasyn for lower extremity cellulitis. On 05/07/2021 patient seen in follow-up on selective care unit, she is awake and alert, in no acute distress, he is resting in bed, he is generally weak, he requires excessive assist to even sit up in bed, but breathing fairly comforta sukhi, lung sounds reveal some scattered crackles at the bases, no rhonchi or wheezing. He remains on antibiotics for bilateral lower extremity cellulitis. he remains on oral Bumex 3 mg twice daily, and he is in -2.8 L net fluid balance over the last 24 hours, lower extremity edema has significantly improved, on 2 L of oxygen he is satting 91%. No complaints of chest discomfort. No cough, no rhonchi, no wheezing. On 05/08/2021 patient seen in follow-up on selective care unit. He is resting c omfortably in bed, he is currently on 3 L of oxygen pulse ox is 90-94%, breathing comfortably, he remains on Bumex, and he is in -2.2 L net fluid balance over the last 24 hours, he remains generally weak, but yesterday he was able to get up in the recliner with assistance. He is achieving about 500 mL on the incentive spirometer, requires assistance and encouragement to perform it. He is in sinus mechanism, his had no acute events overnight, he denies any worsening dyspnea or cough. Ultrasound of the chest has been completed showing 9.6 cm right pleural effusion pocket as read by the radiologist with floating tissue in the fluid pocket. Ultrasound films have been reviewed by Dr. Siddiqui, and the pleural fluid pocket is not large enough for drainage. Left side was not marked. We'll continue medical treatment at this time. On 05/09/2021 patient seen in follow-up on selective care unit, he is resting comfortably in bed, he is on 3 L of oxygen is 93%, hemodynamically has been stable, he states his breathing is comfortable, no worsening dyspnea or cough, lung sounds are clear, diminished at the bases, she remains on oral diuretics with Bumex 3 mg twice daily, and a taste to maintain negative fluid balance of 985 ML over last 24 hours, he remains on oral anticoagulation, he has completed Rocephin, his vital signs have been stable, he has had no acute events overnight. Blood pressure has been stable, today's labs are pending. Patient is awake and alert, yesterday he was assisted up in the recliner, tolerated activity well, his been working on incentive spirometer, he is able to achieve 750 ML on the today. Objective - Vital Signs Vital signs: Vital Signs Temp 97.4 F L 05/09/21 08:00 Pulse 80 05/09/21 08:53 Resp 18 05/09/21 08:00 BP 107/72 05/09/21 08:00 Pulse Ox 93 L 05/09/21 08:00 Intake & Output 05/08/21 05/09/21 05/09/21 18:59 06:59 18:59 Intake Total 1340 480 Output Total 2024 300 300 Balance -685 -300 180 Intake: IV 140 Ampicillin-Sulbactam 1.5 100 gm In Sodium Chloride 0.9 % 50 ml @ 100 mls/hr IVPB Q8HR [facility] Rx#:[id number] Invasive Line 3 40 Oral 1200 480 Output: Urine 2024 300 300 Uretheral (Wells) 2024 Other: Voiding Method Indwelling Catheter Indwelling Catheter Indwelling Catheter - Exam GENERAL EXAM: Alert, pleasant, 81-year-old white male, appears chronically ill and debilitated, but appears to be in no acute distress on 3 L of oxygen and a pulse ox of 90-94%, speech is slightly slow and possibly dysarthric comfortable in no apparent distress. HEAD: Normocephalic/atraumatic. EYES: Normal reaction of pupils, equal size. Conjunctiva pink, sclera white. NOSE: Clear with pink turbinates. THROAT: No erythema or exudates. NECK: No masses, no JVD, no thyroid enlargement, no adenopathy. CHEST: No chest wall deformity. Symmetrical expansion. LUNGS: Equal air entry with major depressive sounds with some scattered crackles CVS: Irregular rate and rhythm, normal S1 and S2, no gallops, systolic murmur present at the left border, no rubs ABDOMEN: Soft, nontender. No hepatosplenomegaly, normal bowel sounds, no guarding or rigidity. EXTREMITIES: No clubbing, mild 1+ edema, and cellulitis of bilateral lower extremities, bilateral lower extremities are Lucio wrapped no cyanosis, 2+ pulses and upper and lower extremities. MUSCULOSKELETAL: Muscle strength and tone normal. SPINE: No scoliosis or deformity SKIN: No rashes CENTRAL NERVOUS SYSTEM: Alert and oriented -3. No focal deficits, tone is normal in all 4 extremities. PSYCHIATRIC: Alert and oriented -3. Appropriate affect. Intact judgment and insight. - Labs CBC & Chem 7: 05/08/21 08:35 05/08/21 08:35 Labs: Abnormal Lab Results - Last 24 Hours (Table) 05/08/21 05/08/21 05/08/21 Range/Units 12:10 16:56 20:03 POC Glucose (mg/dL) 148 H 140 H 119 H (75-99) mg/dL 05/09/21 Range/Units 06:03 POC Glucose (mg/dL) 113 H (75-99) mg/dL Microbiology - Last 24 Hours (Table) 05/02/21 09:49 Blood Culture - Final Blood No Growth after 144 hours 05/02/21 09:51 Blood Culture - Final Blood No Growth after 144 hours Assessment and Plan Plan: Assessment: #1. Acute hypoxic respiratory failure related to an acute exacerbation of suspected diastolic CHF #2. Acute cardiogenic shock related to diastolic CHF, resolved #3. Bilateral pleural effusions, ultrasound of the chest from 05/07/2021 showed right pleural effusion pocket with floating tissue in the pleural fluid, not l arge enough for thoracentesis #4. Acute kidney injury, likely related to cardiorenal etiology, improving #5. Acute hyperkalemia, improved and resolved #6. Febrile illness possibly related to cellulitis, currently on Unasyn #7. Moderate to severe aortic stenosis #8. Chronic A. fib on Eliquis #9. History of chronic lower extremity edema with changes of chronic venous stasis #10. History of epilepsy following a CVA #11. History of CVA #12. History of hypertension #13. Hyperlipidemia #14. History of prostate cancer status post radiation Plan: Acute events overnight Vital signs have been stable Breathing comfortably Remains on oral diuretics and is maintaining negative fluid balance Blood pressure is stable Discharge planning is in progress for discharge to [facility] for subacute rehab From pulmonary perspective patient is stable for discharge if cleared by medicine and nephrology Outpatient follow-up with Dr. Duque in the office in 2 weeks I performed a history & physical examination of the patient and discussed their management with my nurse practitioner, Cata Ku. I reviewed the nurse practitioner's note and agree with the documented findings and plan of care. Lung sounds are positive for dim breath sounds throughout the lung butler. The findings and the impression was discussed with the patient. I attest to the documentation by the nurse practitioner. I have personally seen and examined the patient, performed the documentation and the assessment and plan as written. Number of minutes spent on the visit: [10] Time with Patient: Less than 30
[2021-05-09 11:48] LABS: Glucose,Whole Blood 107 mg/dL (75-99)
[2021-05-09 12:00] VITALS: PULSE 76
--- NOTE | 2021-05-09 12:11 | P.PN ---
Subjective Progress Note Date: 05/09/21 HISTORY OF PRESENT ILLNESS: This is a 81-year-old gentleman with history of diastolic CHF, previous CVA, hypertension, hyperlipidemia and also chronic atrial fibrillation was brought to the hospital with complaints of rather abrupt onset of weakness and slurred speech with a suspicion for CVA. Initially "stroke was initiated. Apparently patient was hypotensive on arrival. Computed tomography scan of the brain did not reveal any acute abnormalities. CT angiogram the head and neck revealed no evidence of intracranial hemodynamics stenosis. His NIH score was 2. Carotid duplex study was suboptimal but no significant stenosis noted. A chest x-ray showed evidence of CHF and possible bibasilar infiltrates. His echocardiogram showed preserved LV function with evidence of possible moderate to severe aortic stenosis. The echocardiographic studies done over the last several years have shown varying gradient across the aortic valve. Patient's creatinine was high, computed to the previous admissions size to acute renal failure associated with hyperkalemia. Patient was on Lasix 40 mg and also Aldactone 25 mg by mouth twice a day at home. His potassium is high. His urine output has been low. Patient has been hypotensive and has been on Levophed. Patient also on anticoagulation therapy at home. Patient is awake and responds to verbal stimuli. His BUN is 60, creatinine is 2.45. Renal consult is initiated. The picture could be consistent with a diastolic CHF though concomitant pneumonia and sepsis cannot be excluded. I will initiate on IV Lasix drip and await further recommendations of the stonework supervisor. Hold off Aldactone. His troponin values are mildly elevated but not consistent with acute myocardial injury pattern. His EKG showed atrial fibrillation with a right bundle-branch block without any acute changes. Further recommendations depend upon clinical course. 05/02/2021: This patient seemed to be little more stable. Still on vasopressors for the blood pressure. Patient seemed to be awake but sleepy. He was able to take in his his . His urine output has been slow. A chest x-ray showed some improvement. His kidney function remained stable, but potassium is high. Nephrology is following and correcting potassium levels. Patient is initiated on IV Bumex. Patient also has a dusky ischemic-looking feet. Also having mild fevers. Patient is going to have a calcitonin and also blood cultures. Patient will continue current management. Collar for possible underlying sepsis. Prognosis is guarded. We will follow. 05/03/2021: Patient seemed to be a little more alert. Still looks frail and weak, Denies any chest pain or shortness of breath. on small dose of Levophed and maintaining systolic blood pressure of about 110. Patient is in atrial fibrillation with moderately rapid ventricular response. We're going to start him on oral amiodarone 200 mg by mouth twice a day. Is on IV Bumex and seemed to be having reasonably and output. His creatinine has shown some improvement. Potassium levels are normal. Lungs show diminished breath sounds. Heart systolic murmur heard. Chest x-ray showed signs of CHF and pleural effusion. We'll continue current management except adding oral amiodarone. 05/04/2021: Patient's to be much more alert today and seemed to be more responsive and less distress. His urine output is very good test. Chest x-ray does show some improvement compared to the previous x-rays. His heart rate is still in 100 to 110 range. Patient is on amiodarone by mouth. I'm going to increase the dose to 200 mg by mouth 3 times a day. Patient is being switched from IV Bumex to oral Bumex. Patient is being transferred to telemetry unit. Will follow 05/05/2021: Patient states that he is feeling well today, no chest pain and no shortness of breath. Patient was transferred out of the intensive care unit yesterday and seen today on the cardiac stepdown unit. He remains in atrial fibrillation with controlled rate in the low 100s. Plan is to continue the current dose of amiodarone and add low dose Lopressor. Chest x-ray reveals similar still awaiting of the right heart margin could represent adjacent right middle lobe and right lower lobe collapse, adjacent loculated effusion, mass, pericardial effusion or marked cardiomegaly. Continued moderate right pleural effusion with mild pulmonary vascular congestion. 05/06/2021 Patient examined this morning at the bedside. He denies chest pain or pressure. Denies SOB. He remains on Bumex per nephrology. Creatinine 1.45 today. Telemetry reveals atrial fibrillation with a heart rate around 110. 05/07/2021 Patient examined this morning at the bedside. He denies chest pain or pressure pretty denies shortness of breath. He remains on Bumex per nephrology. Telemetry reveals atrial fibrillation with a heart rate in the 90s. Patient's metoprolol was increased to 3 times a day dosing yesterday. However he is unable to tolerate this due to hypotension. Blood pressure this morning 83/56. 05/08/2021 Patient examined this morning at the bedside. He denies chest pain or pressure. Denies SOB. He remains on Bumex per nephrology. Patients blood pressure slightly improved with adding Midodrine yesterday. He remains in afib with controlled ventricular rates. 05/09/2021 Patient examined this morning at the bedside. He denies chest pain or pressure. Denies SOB. He remains on Bumex per nephrology. Patients blood pressure is stable. He remains in afib with controlled ventricular rates. PHYSICAL EXAM: VITAL SIGNS: Reviewed. GENERAL: Well-developed in no acute distress. NECK: Supple. No JVD or thyromegaly LUNGS: Respirations even and unlabored. Lungs diminished to auscultation bilaterally. HEART: Irregular rate and rhythm. S1 and S2 heard. Systolic murmur noted. EXTREMITIES: Normal range of motion. No clubbing or cyanosis. Peripheral pulses intact. 1+ bilateral lower extremity edema ASSESSMENT: Acute renal failure Acute hypoxic respiratory failure Chronic atrial fibrillation History of CVA Hyperkalemia Acute on chronic diastolic heart failure PLAN: Continue diuretics per nephrology Continue Midodrine Continue metoprolol. Hold for SBP less than 90. Continue telemetry monitoring Continue to monitor BP No further inpatient recommendations from a cardiac standpoint We will sign off. Please reconsult if needed Nurse practitioner note has been reviewed by physician. Signing provider agrees with the documented findings, assessment, and plan of care. Objective - Vital Signs Vital signs: Vital Signs Temp 97.4 F L 05/09/21 08:00 Pulse 76 05/09/21 12:00 Resp 18 05/09/21 12:00 BP 93/63 05/09/21 12:00 Pulse Ox 95 05/09/21 12:00 Intake & Output 05/08/21 05/09/21 05/09/21 18:59 06:59 18:59 Intake Total 1340 480 Output Total 2024 300 300 Balance -685 -300 180 Intake: IV 140 Ampicillin-Sulbactam 1.5 100 gm In Sodium Chloride 0.9 % 50 ml @ 100 mls/hr IVPB Q8HR [facility] Rx#:[id number] Invasive Line 3 40 Oral 1200 480 Output: Urine 2024 300 300 Uretheral (Wells) 2024 Other: Voiding Method Indwelling Catheter Indwelling Catheter Indwelling Catheter - Labs CBC & Chem 7: 05/08/21 08:35 05/08/21 08:35 Labs: Abnormal Lab Results - Last 24 Hours (Table) 05/08/21 05/08/21 05/08/21 Range/Units 12:10 16:56 20:03 POC Glucose (mg/dL) 148 H 140 H 119 H (75-99) mg/dL 05/09/21 05/09/21 Range/Units 06:03 11:45 POC Glucose (mg/dL) 113 H 107 H (75-99) mg/dL Microbiology - Last 24 Hours (Table) 05/02/21 09:49 Blood Culture - Final Blood No Growth after 144 hours 05/02/21 09:51 Blood Culture - Final Blood No Growth after 144 hours
--- NOTE | 2021-05-09 13:20 | P.PN ---
Subjective Patient is seen for follow-up for acute kidney injury on top of chronic kidney disease. Etiology for acute kidney injury is cardiorenal syndrome and contrast-induced nephropathy. Patient is maintained on Bumex which has been switched to by mouth from IV drip. Patient has had good urine output. 2.9 L noted for 24 hours. Negative net UF of about 2 L No complaints of chest pain shortness of breath. No nausea or vomiting. Creatinine is down to 1.45, stable Objective - Vital Signs Vital signs: Vital Signs Temp 97.4 F L 05/09/21 08:00 Pulse 76 05/09/21 12:00 Resp 18 05/09/21 12:00 BP 93/63 05/09/21 12:00 Pulse Ox 95 05/09/21 12:00 Intake & Output 05/08/21 05/09/21 05/09/21 18:59 06:59 18:59 Intake Total 1340 720 Output Total 2024 300 300 Balance -685 -300 420 Intake: IV 140 Ampicillin-Sulbactam 1.5 100 gm In Sodium Chloride 0.9 % 50 ml @ 100 mls/hr IVPB Q8HR [facility] Rx#:[id number] Invasive Line 3 40 Oral 1200 720 Output: Urine 2024 300 300 Uretheral (Wells) 2024 Other: Voiding Method Indwelling Catheter Indwelling Catheter Indwelling Catheter - Exam Patient is awake comfortable. Not in any acute distress. Examination of the heart S1 and S2 Examination lungs decreased breath sounds bilateral bases Abdomen is soft nontender Examination lower extremities shows legs are wrapped [employer]IC exam grossly intact - Labs CBC & Chem 7: 05/08/21 08:35 05/08/21 08:35 Labs: Abnormal Lab Results - Last 24 Hours (Table) 05/08/21 05/08/21 05/09/21 Range/Units 16:56 20:03 06:03 POC Glucose (mg/dL) 140 H 119 H 113 H (75-99) mg/dL 05/09/21 Range/Units 11:45 POC Glucose (mg/dL) 107 H (75-99) mg/dL Microbiology - Last 24 Hours (Table) 05/02/21 09:49 Blood Culture - Final Blood No Growth after 144 hours 05/02/21 09:51 Blood Culture - Final Blood No Growth after 144 hours Assessment and Plan Assessment: 1. Acute kidney injury from cardiorenal syndrome with diastolic dysfunction and contrast-induced nephropathy. Currently diuresing well. Patient is off of pressors and has been transferred out of the ICU. Renal function continues to improve 2. Diastolic dysfunction 3. Volume overload currently improved 4. Mild metabolic alkalosis secondary to diuresis Plan: Continue current dose of Bumex. Repeat labs in a.m. Continue with midodrine
--- NOTE | 2021-05-09 13:29 | P.DS ---
Providers Date of admission: 04/30/21 22:56 Expected date of discharge: 05/09/21 Attending physician: Evan Mary Consults: 04/30/21 22:55 Consult Physician Urgent Consulting Provider: Shukri Duque Consult Reason/Comments: ICU management Do you want consulting provider notified?: Yes 05/01/21 11:12 Consult Physician Routine Consulting Provider: Caitlin Hunter Consult Reason/Comments: renal failure Do you want consulting provider notified?: Yes Primary care physician: Evan Mary Hospital Course: Final Diagnoses: Acute cardiogenic shock secondary to Acute diastolic CHF exacerbation. Acute hypoxic respiratory failure, status post BiPAP dependent Acute renal failure secondary to ATN related to the above, cardiorenal syndrome. Hyperkalemia secondary to the above, resolved Moderate to severe aortic stenosis Troponin leak Chronic A. fib on anticoagulation History of CVA 2 Epilepsy , history of, on Keppra with history of Chronic lower extremity venous stasis changes, ischemic appearing Hypertension, history of Hyperlipidemia Hospital course:This is an 81-year-old gentleman with history of prior CVA 2, hypertension, hyperlipidemia, chronic atrial fibrillation-anticoagulated on Eliquis, CHF and multiple other medical issues brought to the ER via EMS with increased weakness, slurred speech, with concerns for possible CVA. Denied nausea, vomiting or abdominal pain. On arrival patient was cyanotic, hypotensive, temperature 94F degrees rectally, tachypneic, O2 sat 84% on room air.Code stroke initially called. NIH score 2. Brain CT reported no acute intracranial abnormality, old right parietal cortical infarct, no significant change. CTA of head and neck limited exam, reported no evidence of intracranial hemodynamic stenosis, carotid arteries of the neck not well evaluated and thrombosis is possible, large left vertebral artery-possible that entire intracranial circulation of the left vertebral artery.Carotid Dopplers study suboptimal reported no hemodynamic significant stenosis. Chest x-ray reporting pulmonary edema with right pleural effusion. ProBNP 1920.EKG reportedly atrial fibrillation with right bundle branch block. Troponins 0.042, 0.045. Echo reporting preserved LV function with moderate to severe aortic stenosis. On admission, WBC 6, hemoglobin 17.3, platelets 101, INR 1.5, sodium 134, potassium 6.2-currently down to 5.9, chloride 97, bicarb 24, BUN 61, creatinine 2.46, T bili 2.6, AST 92, ALT 40. UA negative. Coronavirus detected. Currently on BiPAP and maintaining O2 sats in the 90s, under a warming blanket. 05/02/2021 Fatigued,more alert this morning, BiPAP during the night, currently maintaining O2 sats in the 90s on 35% Ventimask. Maintained on Levophed. Chest x-ray reporting no significant interval change -persistent prominent interstitial lung markings and pulmonary vascular congestion/pulmonary edema . 24 hour I&O reflecting a positive fluid balance .Minimal urine output, Bumex drip ordered. Diarrhea, tested negative for C. difficile colitis. Bear hugger off.T-max 100.8, normal WBC, tachycardic. Recently removed off the BiPAP and currently on 35% Ventimask, maintaining O2 sats in the 90s. Hemoglobin 17.7, platelets 106, sodium 139, potassium 6.1, BUN 64, creatinine 2.61, total bili 3.4, AST 87, ALT 48, alk phos 80. 05/07/2021 significant weakness, nursing reporting total max assist 4. Maintained on nebulized bronchodilators, antibiotics. Maintaining O2 sats in the low 90s on 2 L nasal cannula. Diuresing well on oral Bumex with 24-hour I&O reflecting a negative fluid balance. BUN 32, creatinine 1.46. Telemetry atrial fibrillation , hypotension. Afebrile, normal WBC. Denies chest pain, palpitations or increased in shortness of breath. 05/08/2021 more alert, engaging in conversation. hypotension improved with the addition of midodrine and decreased beta blanquita yesterday. 24-hour I&O remains in a negative fluid balance on oral Bumex. Developed urinary retention requiri ng Wells catheter. Hematuria clearing. Chest ultrasound yesterday reporting large right pleural effusion, further evaluation per pulmonary. Maintaining O2 sats in the 90s on 3 L nasal cannula. Significant clinical improvement. Denies chest pain, palpitations or increased shortness of breath. Cleared by both pulmonary and cardiology. Patient will be discharged today to [facility] subacute rehab. In a stable condition with guarded prognosis, Pending final DC recommendations/diuretics and clearance per nephrology. The impression and plan of care has been dictated as directed. : I performed a history and examination of this patient, discussed the same with the dictator. I agree with the dictator's note ,documented as a scribe. Any additional findings or plans will be noted. Patient Condition at Discharge: Stable Plan - Discharge Summary Discharge Rx Participant: No New Discharge Prescriptions: New Bumetanide [BUMEX] 3 mg PO BID tab Amiodarone [Cordarone] 200 mg PO BID tab Ipratropium-Albuterol Nebulize [Duoneb 0.5 mg-3 mg/3 ml Soln] 3 ml INHALATION RT-QID ml Metoprolol Tartrate [Lopressor] 12.5 mg PO BID tab Midodrine [ProAmatine] 5 mg PO AC-TID tab Acetaminophen Tab [Tylenol] 650 mg PO Q4HR PRN tab PRN Reason: Fever And/Or Mild Pain Continue Multivitamins, Thera [Multivitamin (formulary)] 1 tab PO DAILY Cholecalciferol [Vitamin D3 (25 Mcg = 1000 Iu)] 25 mcg PO DAILY levETIRAcetam [Keppra] 500 mg PO BID Apixaban [Eliquis] 5 mg PO BID Atorvastatin [Lipitor] 20 mg PO HS SILVER sulfADIAZINE Cream [Silvadene 1% Cream] 1 applic TOPICAL BID PRN PRN Reason: legs sores Discontinued Metoprolol Tartrate [Lopressor] 25 mg PO BID Furosemide [Lasix] 40 mg PO DAILY Spironolactone [Aldactone] 25 mg PO BID Discharge Medication List Cholecalciferol [Vitamin D3 (25 Mcg = 1000 Iu)] 25 mcg PO DAILY 11/05/15 [History] Multivitamins, Thera [Multivitamin (formulary)] 1 tab PO DAILY 11/05/15 [History] Apixaban [Eliquis] 5 mg PO BID 01/21/20 [History] Atorvastatin [Lipitor] 20 mg PO HS 01/21/20 [History] levETIRAcetam [Keppra] 500 mg PO BID 01/21/20 [History] SILVER sulfADIAZINE Cream [Silvadene 1% Cream] 1 applic TOPICAL BID PRN 04/30/21 [History] Acetaminophen Tab [Tylenol] 650 mg PO Q4HR PRN tab 05/09/21 [Rx] Amiodarone [Cordarone] 200 mg PO BID tab 05/09/21 [Rx] Bumetanide [BUMEX] 3 mg PO BID tab 05/09/21 [Rx] Ipratropium-Albuterol Nebulize [Duoneb 0.5 mg-3 mg/3 ml Soln] 3 ml INHALATION RT-QID ml 05/09/21 [Rx] Metoprolol Tartrate [Lopressor] 12.5 mg PO BID tab 05/09/21 [Rx] Midodrine [ProAmatine] 5 mg PO AC-TID tab 05/09/21 [Rx] Follow up Appointment(s)/Referral(s): Evan Mary DO [Primary Care Provider] - 1-2 days Shukri Duque DO [Doctor of Osteopathic Medicine] - 2 Weeks Robin Sales MD [STAFF PHYSICIAN] - 1 Week Activity/Diet/Wound Care/Special Instructions: Marysol DESAI,BMP in 3 days Discharge Disposition: TRANSFER TO SNF/ECF
[2021-05-09 16:50] LABS: Glucose,Whole Blood 119 mg/dL (75-99)
[2021-05-09 17:18] VITALS: BP 88/57
[2021-05-09] MEDS ORDERED: ALBUTEROL HFA INHALER INHALATION SCH (20:00)
[2021-05-09] MEDS ORDERED: AMIODARONE 200 MG TAB PO SCH (21:00)
== END 2021-05-09 18:24 | DRG 291 ==
LOC: EC 20:02 → 2SICU 22:56 → 3SCARD 05-04 18:05
PROVIDERS: ADMIT Family Medicine; ATTEND Family Medicine
PROC: 3E033XZ Introduction of Vasopressor into Peripheral Vein, Percutaneous Approach (ICD-10-PCS; principal; 2021-04-30)
PROC: 5A09457 Assistance with Respiratory Ventilation, 24-96 Consecutive Hours, Continuous Positive Airway Pressure (ICD-10-PCS; 2021-04-30)
PROC: 02HV33Z Insertion of Infusion Device into Superior Vena Cava, Percutaneous Approach (ICD-10-PCS; 2021-05-01)
DX: I13.0 Hypertensive heart and chronic kidney disease with heart failure and stage 1 through stage 4 chronic kidney disease, or unspecified chronic kidney disease (principal); I50.33 Acute on chronic diastolic (congestive) heart failure; J96.01 Acute respiratory failure with hypoxia; N17.0 Acute kidney failure with tubular necrosis; R57.0 Cardiogenic shock; U07.1 COVID-19; E87.3 Alkalosis; L03.115 Cellulitis of right lower limb; L03.116 Cellulitis of left lower limb; I48.20 Chronic atrial fibrillation, unspecified; J98.11 Atelectasis; G31.9 Degenerative disease of nervous system, unspecified; G40.909 Epilepsy, unspecified, not intractable, without status epilepticus; N18.30 Chronic kidney disease, stage 3 unspecified; R54 Age-related physical debility; E78.5 Hyperlipidemia, unspecified; E87.5 Hyperkalemia; I08.3 Combined rheumatic disorders of mitral, aortic and tricuspid valves; T50.2X5A Adverse effect of carbonic-anhydrase inhibitors, benzothiadiazides and other diuretics, initial encounter; R33.9 Retention of urine, unspecified; R31.9 Hematuria, unspecified; R19.7 Diarrhea, unspecified; I45.10 Unspecified right bundle-branch block; I87.8 Other specified disorders of veins; R77.8 Other specified abnormalities of plasma proteins; Z79.01 Long term (current) use of anticoagulants; Z79.899 Other long term (current) drug therapy; Z86.73 Personal history of transient ischemic attack (TIA), and cerebral infarction without residual deficits; Z85.46 Personal history of malignant neoplasm of prostate; Z92.3 Personal history of irradiation; Z87.81 Personal history of (healed) traumatic fracture; Z87.891 Personal history of nicotine dependence; Z83.3 Family history of diabetes mellitus; Z82.49 Family history of ischemic heart disease and other diseases of the circulatory system; Z82.0 Family history of epilepsy and other diseases of the nervous system; Z81.1 Family history of alcohol abuse and dependence
CPT/HCPCS: 36415; 36573; 70450; 70496; 70498; 71045; 76604; 76770; 80048; 80053; 81001; 82533; 83605; 83735; 83880; 84132; 84145; 84443; 84484; 85025; 85027; 85610; 85730; 87040; 87324; 87635; 93005; 93306; 93880; 94003; 94640; 94660; 94760; 96361; 96365; 96366; 99291

== ENCOUNTER → 2021-06-10 | Outpatient (CLI) | payer MEDICARE ==
[2021-06-10 18:09] LABS: HCT 48.1 % (39.6-50.0); HGB 15.1 g/dL (13.0-17.0); MCH 29.2 pg (27.0-32.0); MCHC 31.4 g/dL (32.0-37.0); Mean Platelet Volume 12.4 fL (9.5-12.2); NRBC Per 100 WBC 0.5 /100 WBCS (0.0-0.0); Platelet Count 127 X 10*3/uL (140-440); RBC 5.17 X 10*6/uL (4.40-5.60); RDW 18.2 % (11.5-14.5); WBC 5.56 X 10*3/uL (4.50-10.00)
[2021-06-10 18:10] LABS: African American GFR (CKD) 26.9 (60.0-200.0); Albumin/Globulin Ratio 1.9 (1.60-3.17); Anion Gap 13.1 mmol/L (10.00-18.00); BUN/Creat Ratio 14.84 Ratio (12.00-20.00); Blood Urea Nitrogen 37.1 mg/dL (9.0-27.0); Calcium 9.7 mg/dL (8.7-10.3); Carbon Dioxide 27.9 mmol/L (20.0-27.5); Globulin 2.1 g/dL (1.6-3.3); Magnesium 2.9 mg/dL (1.5-2.4); Non-African American GFR(CKD) 23.2 (60.0-200.0); Phosphorus 4.4 mg/dL (2.4-5.1); Potassium 5.8 mmol/L (3.5-5.5); Total Bilirubin 1.8 mg/dL (0.30-1.20); Total Protein 6.1 g/dL (6.2-8.2)
== END | disposition home or self-care (01) ==
LOC: LABWHC1 12:35
PROVIDERS: ATTEND Nurse Practitioner Acute Care
DX: I50.9 Heart failure, unspecified (principal)
CPT/HCPCS: 36415; 80053; 83735; 84100; 85027

== ENCOUNTER 2021-06-11 15:31 | Inpatient (IN) | payer MEDICARE ==
--- NOTE | 2021-06-11 17:11 | ED ---
General Adult HPI - General Chief complaint: Weakness Stated complaint: Dizziness Time Seen by Provider: 06/11/21 16:36 Source: patient Mode of arrival: wheelchair - History of Present Illness Initial comments: This 81-year-old male with a past medical history of A. fib, congestive heart failure, CVA/TIA, hyperlipidemia, hypertension presents to the emergency department with increased weakness and bilateral lower extremity edema worsening over the last few days. Patient states when he gets up to move around he does feel slightly short of breath and does get little bit lightheaded. Patient denies any recent falls or confusion. Daughter in room states this has been worsening over the last 3-4 days. Patient was also recently diagnosed with a UTI from his primary care provider and states he was placed on Macrobid yesterday. Patient denies any chest pain, abdominal pain, fever, nausea, vomiting, lightheadedness, headache, change in vision, one-sided weakness, change in bowel or bladder, change in appetite, cough. She denies any increased urinary hesitancy, urgency, dribbling, burning or any urinary symptoms at this time. - Related Data Home Medications Medication Instructions Recorded Confirmed Multivitamins, Thera [Multivitamin 1 tab PO DAILY 11/05/15 06/11/21 (formulary)] Apixaban [Eliquis] 5 mg PO BID 01/21/20 06/11/21 Atorvastatin [Lipitor] 20 mg PO HS 01/21/20 06/11/21 levETIRAcetam [Keppra] 500 mg PO BID 01/21/20 06/11/21 Allopurinol [Zyloprim] 100 mg PO DAILY 06/11/21 06/11/21 Bumetanide [BUMEX] 3 mg PO DAILY 06/11/21 06/11/21 Bumetanide [Bumex] 2 mg PO HS 06/11/21 06/11/21 Cholecalciferol [Vitamin D3 (25 25 mcg PO DAILY 06/11/21 06/11/21 Mcg = 1000 Iu)] Metoprolol Tartrate [Lopressor] 12.5 mg PO BID 06/11/21 06/11/21 Nitrofurantoin Monohyd/M-Cryst 100 mg PO BID 06/11/21 06/11/21 [Macrobid] Potassium Chloride ER [K-Dur 20] 20 meq PO BID 06/11/21 06/11/21 Previous Rx's Medication Instructions Recorded Acetaminophen Tab [Tylenol] 650 mg PO Q4HR PRN tab 05/09/21 Amiodarone [Cordarone] 200 mg PO BID tab 05/09/21 Midodrine [ProAmatine] 5 mg PO AC-TID tab 05/09/21 Allergies Allergy/AdvReac Type Severity Reaction Status Date / Time No Known Allergies Allergy Verified 06/11/21 18:34 Review of Systems ROS Statement: Those systems with pertinent positive or pertinent negative responses have been documented in the HPI. ROS Other: All systems not noted in ROS Statement are negative. Past Medical History Past Medical History: Atrial Fibrillation, Heart Failure, CVA/TIA, Hyperlipidemi a, Hypertension Additional Past Medical History / Comment(s): prostate cancer 2008, radiation treatment, last stroke was October 2014 and 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 Pelvic fracture. History of Any Multi-Drug Resistant Organisms: None Reported Additional Past Surgical History / Comment(s): colonoscopy x3, Past Anesthesia/Blood Transfusion Reactions: No Reported Reaction Past Psychological History: No Psychological Hx Reported Smoking Status: Never smoker Past Alcohol Use History: None Reported Past Drug Use History: None Reported - Past Family History Sister(s) Family Medical History: Diabetes Mellitus, Myocardial Infarction (OR) Additional Family Medical History / Comment(s): sister from an OR Mother Family Medical History: No Reported History Additional Family Medical History / Comment(s): multiple sclerosis Son(s) Family Medical History: Hypertension Father Additional Family Medical History / Comment(s): ETOH abuse General Exam General appearance: alert, in no apparent distress Head exam: Present: atraumatic, normocephalic, normal inspection Eye exam: Present: normal appearance, PERRL, EOMI. Absent: scleral icterus, conjunctival injection, periorbital swelling Pupils: Present: normal accommodation ENT exam: Present: normal exam, mucous membranes moist Neck exam: Present: normal inspection. Absent: tenderness, meningismus, lymphadenopathy Respiratory exam: Present: normal lung sounds bilaterally. Absent: respiratory distress, wheezes, rales, rhonchi, stridor Cardiovascular Exam: Present: regular rate, normal rhythm, normal heart sounds. Absent: systolic murmur, diastolic murmur, rubs, gallop, clicks GI/Abdominal exam: Present: soft, normal bowel sounds. Absent: distended, tenderness, guarding, rebound, rigid Extremities exam: Present: normal inspection, full ROM, normal capillary refill, pedal edema (2+ pitting edema bilateral lower extremities, left>right). Absent: tenderness, joint swelling, calf tenderness Back exam: Present: normal inspection, full ROM. Absent: CVA tenderness (R), CVA tenderness (L), paraspinal tenderness, vertebral tenderness Neurological exam: Present: alert, oriented X3, CN II-XII intact Psychiatric exam: Present: normal affect, normal mood Skin exam: Present: warm, dry, intact, normal color. Absent: rash Course Vital Signs 06/11/21 06/11/21 15:48 19:12 Temperature 95.4 F L Pulse Rate 65 59 L Respiratory 18 16 Rate Blood Pressure 92/63 112/59 O2 Sat by Pulse 95 96 Oximetry Medical Decision Making - Medical Decision Making This 81-year-old male with past medical history of CVA/TIA, hyperlipidemia, hypertension, congestive heart failure presents emergency Department with bilateral lower extremity edema along with shortness of breath on exertion and lightheadedness on exertion. Patient was recently diagnosed with UTI yesterday and was started on by mouth Macrobid. Chest x-ray impression: Moderate cardiomegaly. There is improvement in the congestive heart failure and pleural fluid compared to old exam. Patient's plasma lactic acid likely due to his chronic kidney disease. Labs with white blood cells 5.8. Sodium 136, potassium 5.4, BUN 40, creatinine 2.55, blood lactic acid 2.5, total bilirubin 2.3, alkaline phosphatase 133, BNP 3740. Urine with large blood, moderate leukocyte esterase, greater than 182 red blood cells, 107 blood cells, 84 hyaline casts, occasional bacteria. I did speak with Dr. Evan Mary and reviewed all labs and vitals, he did agreed to admit patient to his services. He did need to give 1 g Rocephin here in the emergency department along with 20 of Lasix. I did consult cardiology and ordered an echocardiogram for tomorrow. Discussed case in detail with my attending, Dr. Florez. Patient and family in room ageed patient to be admitted for further workup, evaluation and treatment - Lab Data Result diagrams: 06/11/21 17:11 06/11/21 18:02 Lab Results 06/11/21 06/11/21 06/11/21 Range/Units 17:11 17:11 17:11 WBC 5.8 (3.8-10.6) k/uL RBC 5.50 (4.30-5.90) m/uL Hgb 16.5 (13.0-17.5) gm/dL Hct 52.5 (39.0-53.0) % MCV 95.4 (80.0-100.0) fL MCH 29.9 (25.0-35.0) pg MCHC 31.4 (31.0-37.0) g/dL RDW 16.8 H (11.5-15.5) % Plt Count 144 L D (150-450) k/uL MPV 11.0 Neutrophils % (Manual) 83 % Lymphocytes % (Manual) 5 % Monocytes % (Manual) 10 % Eosinophils % (Manual) 2 % Neutrophils # (Manual) 4.81 (1.3-7.7) k/uL Lymphocytes # (Manual) 0.29 L (1.0-4.8) k/uL Monocytes # (Manual) 0.58 (0-1.0) k/uL Eosinophils # (Manual) 0.12 (0-0.7) k/uL Nucleated RBCs 0 (0-0) /100 WBC Manual Slide Review Performed Polychromasia Present Hypochromasia Slight Anisocytosis Slight Macrocytosis Slight Sodium (137-145) mmol/L Potassium (3.5-5.1) mmol/L Chloride (98-107) mmol/L Carbon Dioxide (22-30) mmol/L Anion Gap mmol/L BUN (9-20) mg/dL Creatinine (0.66-1.25) mg/dL Est GFR (CKD-EPI)AfAm (>60 ml/min/1.73 sqM) Est GFR (CKD-EPI)NonAf (>60 ml/min/1.73 sqM) Glucose (74-99) mg/dL Plasma Lactic Acid Yakov 2.5 H* (0.7-2.0) mmol/L Calcium (8.4-10.2) mg/dL Total Bilirubin (0.2-1.3) mg/dL AST (17-59) U/L ALT (4-49) U/L Alkaline Phosphatase (38-126) U/L NT-Pro-B Natriuret Pep pg/mL Total Protein (6.3-8.2) g/dL Albumin (3.5-5.0) g/dL Urine Color Light Red Urine Appearance Cloudy (Clear) Urine pH 5.5 (5.0-8.0) Ur Specific Henning 1.013 (1.001-1.035) Urine Protein 1+ H (Negative) Urine Glucose (UA) Negative (Negative) Urine Ketones Negative (Negative) Urine Blood Large H (Negative) Urine Nitrite Negative (Negative) Urine Bilirubin Negative (Negative) Urine Urobilinogen <2.0 (<2.0) mg/dL Ur Leukocyte Esterase Moderate H (Negative) Urine RBC >182 H (0-5) /hpf Urine WBC 107 H (0-5) /hpf Urine Bacteria Occasional H (None) /hpf Hyaline Casts 84 H (0-2) /lpf Urine Mucus Rare H (None) /hpf 06/11/21 06/11/21 Range/Units 17:11 18:02 WBC (3.8-10.6) k/uL RBC (4.30-5.90) m/uL Hgb (13.0-17.5) gm/dL Hct (39.0-53.0) % MCV (80.0-100.0) fL MCH (25.0-35.0) pg MCHC (31.0-37.0) g/dL RDW (11.5-15.5) % Plt Count (150-450) k/uL MPV Neutrophils % (Manual) % Lymphocytes % (Manual) % Monocytes % (Manual) % Eosinophils % (Manual) % Neutrophils # (Manual) (1.3-7.7) k/uL Lymphocytes # (Manual) (1.0-4.8) k/uL Monocytes # (Manual) (0-1.0) k/uL Eosinophils # (Manual) (0-0.7) k/uL Nucleated RBCs (0-0) /100 WBC Manual Slide Review Polychromasia Hypochromasia Anisocytosis Macrocytosis Sodium 136 L (137-145) mmol/L Potassium 5.4 H (3.5-5.1) mmol/L Chloride 98 (98-107) mmol/L Carbon Dioxide 27 (22-30) mmol/L Anion Gap 11 mmol/L BUN 40 H (9-20) mg/dL Creatinine 2.55 H (0.66-1.25) mg/dL Est GFR (CKD-EPI)AfAm 26 (>60 ml/min/1.73 sqM) Est GFR (CKD-EPI)NonAf 23 (>60 ml/min/1.73 sqM) Glucose 97 (74-99) mg/dL Plasma Lactic Acid Yakov (0.7-2.0) mmol/L Calcium 9.1 (8.4-10.2) mg/dL Total Bilirubin 2.3 H (0.2-1.3) mg/dL AST 44 (17-59) U/L ALT 28 (4-49) U/L Alkaline Phosphatase 133 H (38-126) U/L NT-Pro-B Natriuret Pep 3740 pg/mL Total Protein 6.8 (6.3-8.2) g/dL Albumin 4.0 (3.5-5.0) g/dL Urine Color Urine Appearance (Clear) Urine pH (5.0-8.0) Ur Specific Henning (1.001-1.035) Urine Protein (Negative) Urine Glucose (UA) (Negative) Urine Ketones (Negative) Urine Blood (Negative) Urine Nitrite (Negative) Urine Bilirubin (Negative) Urine Urobilinogen (<2.0) mg/dL Ur Leukocyte Esterase (Negative) Urine RBC (0-5) /hpf Urine WBC (0-5) /hpf Urine Bacteria (None) /hpf Hyaline Casts (0-2) /lpf Urine Mucus (None) /hpf Disposition Clinical Impression: CHF exacerbation, Urinary tract infection Disposition: ADMITTED IP TO THIS [facility] Condition: Serious Referrals: Evan Mary DO [Primary Care Provider] - 1-2 days Time of Disposition: 19:54
--- NOTE | 2021-06-11 17:28 | XR ---
EXAMINATION TYPE: XR chest 2V DATE OF EXAM: 06/11/2021 COMPARISON: 05/07/2021 HISTORY: Weakness TECHNIQUE: FINDINGS: Heart is moderately enlarged. There is mild pulmonary congestion. There is slight blunting of the costophrenic angles. Thoracic aorta is atheromatous. IMPRESSION: Moderate cardiomegaly. There is improvement in the congestive heart failure and pleural f luid compared to the old exam.
[2021-06-11 17:48] LABS: Anisocytosis Slight; HCT 52.5 % (39.0-53.0); HGB 16.5 gm/dL (13.0-17.5); Hypochromasia Slight; MCH 29.9 pg (25.0-35.0); MCHC 31.4 g/dL (31.0-37.0); MCV 95.4 fL (80.0-100.0); Macrocytosis Slight; RDW 16.8 % (11.5-15.5); WBC 5.8 k/uL (3.8-10.6)
[2021-06-11 17:55] LABS: Appearance,Urine Cloudy (Clear); Bacteria,Urine Occasional /hpf; Bilirubin,Urine Negative (Negative); Blood,Urine Large (Negative); Color,Urine Light Red; Glucose,Urine (UA) Negative (Negative); Hyaline Casts,Urine 84 /lpf (0-2); Ketones,Urine Negative (Negative); Leukocyte Esterase,Urine Moderate (Negative); Mucus,Urine Rare /hpf; Nitrite,Urine Negative (Negative); PH, Urine 5.5 (5.0-8.0); Protein,Urine 1+ (Negative); RBC,Urine >182 /hpf (0-5); Specific Gravity,Urine 1.013 (1.001-1.035); Urobilinogen,Urine <2.0 mg/dL (<2.0); WBC,Urine 107 /hpf (0-5)
[2021-06-11 18:22] LABS: Calcium 9.1 mg/dL (8.4-10.2); Potassium 5.4 mmol/L (3.5-5.1); Total Bilirubin 2.3 mg/dL (0.2-1.3); Total Protein 6.8 g/dL (6.3-8.2)
[2021-06-11 18:33] LABS: Platelet Count 144 k/uL (150-450)
[2021-06-11 18:39] LABS: Eosinophils # (M) 0.12 k/uL (0-0.7); Lymphocytes # (M) 0.29 k/uL (1.0-4.8); Monocytes # (M) 0.58 k/uL (0-1.0); Neutrophils # (M) 4.81 k/uL (1.3-7.7); Neutrophils % (M) 83 %; Nucleated Red Blood Cells 0 /100 WBC (0-0); Polychromasia Present; Total Cells Counted 100
[2021-06-11] MEDS ORDERED: FUROSEMIDE 10 MG/ML 2 ML VIAL IV STA (19:47)
[2021-06-11] MEDS ORDERED: NALOXONE 0.4 MG/ML 1 ML VIAL IV PRN (19:48)
[2021-06-11 21:27] LABS: INR 1.5 (<1.2); Partial Thromboplastin Time 30.1 sec (22.0-30.0)
[2021-06-12] MEDS ORDERED: ACETAMINOPHEN TAB 325 MG TAB PO PRN (00:50)
[2021-06-12] MEDS: AMIODARONE 200 MG TAB PO SCH ×2 (08:22→21:32)
[2021-06-12] MEDS: MIDODRINE 5 MG TAB PO SCH ×3 (08:22→17:30)
[2021-06-12] MEDS: MULTIVITAMINS, THERA 1 EACH TAB PO SCH (08:22)
[2021-06-12] MEDS: allopurinoL 100 MG TAB PO SCH (08:23)
[2021-06-12] MEDS: POTASSIUM CHLORIDE ER 20 MEQ TAB.ER PO SCH ×2 (08:23→21:32)
[2021-06-12] MEDS: METOPROLOL TARTRATE 12.5 MG TAB PO SCH ×2 (08:23→21:32)
[2021-06-12] MEDS: APIXABAN 5 MG TAB PO SCH ×2 (08:23→21:32)
[2021-06-12] MEDS: levETIRAcetam 500 MG TAB PO SCH ×2 (08:23→21:32)
[2021-06-12] MEDS: CHOLECALCIFEROL 25 MCG (1000 IU) TABLET PO SCH (08:23)
[2021-06-12] MEDS: BUMETANIDE 1 MG TAB PO SCH ×2 (08:24→21:32)
[2021-06-12] MEDS: PANTOPRAZOLE 40 MG/10 ML VIAL IVP SCH (10:35)
[2021-06-12 11:11] LABS: African American GFR (CKD) 28 (>60 ml/min/1.73 sqM); Anion Gap 9 mmol/L; Blood Urea Nitrogen 40 mg/dL (9-20); Calcium 8.8 mg/dL (8.4-10.2); Carbon Dioxide 30 mmol/L (22-30); Chloride 96 mmol/L (98-107); Glucose 152 mg/dL (74-99); Non-African American GFR(CKD) 24 (>60 ml/min/1.73 sqM); Sodium 135 mmol/L (137-145)
--- NOTE | 2021-06-12 14:02 | P.CRDCN ---
History of Present Illness History of present illness: This is a 81-year-old gentleman with history of congestive heart failure with preserved ejection fraction, aortic stenosis, mitral regurgitation, previous CVA, hypertension, hyperlipidemia and permanent atrial fibrillation on Eliquis. He follows with Dr. Sales. We have been asked to see in consultation for congestive heart failure. He presents to the emergency department with complaints of bilateral leg weakness, worsening lower extremity edema and some shortness of breath and lightheadedness. He states he mostly has been having this symptoms with ambulation. He denies loss of consciousness or near syncope. He states he was discharged from [facility] 1 week ago and has been home. Family stating that patient's symptoms have been worsening for 3-4 days. He has recently been diagnosed with UTI by his PCP and was placed on Macrobid. He denies chest pain, orthopnea or PND, palpitations, syncope or near syncope. DIAGNOSTICS Chest x-ray revealed moderate cardiomegaly, improvement in congestive heart failure and pleural fluid compared to old exam. Echocardiogram 05/01/21 revealed EF 5055 percent, mild aortic regurgitation, moderate aortic stenosis with peak/mean gradient of 38 mmHg/19 mmHg, mild to moderate mitral regurgitation, moderate tricuspid regurgitation Laboratory reviewed, sodium 135, potassium 5.0, BUN 40, serum creatinine 2.4, proBNP 3740, UA positive for UTI, Current home medications include midodrine 5 mg 3 times a day, metoprolol tartrate 12.5 mg twice a day, Bumex 2 mg nightly and 30 mg daily, atorvastatin 20 mg daily, Eliquis 5 mg twice a day, amiodarone 200 mg twice a day REVIEW OF SYSTEMS At the time of my exam: CONSTITUTIONAL: Denies fever or chills. CARDIOVASCULAR: Denies chest pain, +shortness of breath, Denies orthopnea, PND or palpitations. RESPIRATORY: Denies cough. GASTROINTESTINAL: Denies abdominal pain, diarrhea, constipation, nausea or vomiting. MUSCULOSKELETAL: Denies myalgias. NEUROLOGIC: Denies numbness, tingling, headache or weakness. ENDOCRINE: Denies fatigue, weight change, polydipsia or polyurina. GENITOURINARY: Denies burning, hematuria or urgency with micturation. HEMATOLOGIC: Denies history of anemia or bleeding. PHYSICAL EXAMINATION Blood pressure 96/61 HR 68, afebrilel 94% on 2L nasal cannula CONSTITUTIONAL: No apparent distress. HEENT: Neck Supple. No JVD. CHEST EXAMINATION: Lungs are clear to auscultation. No chest wall tenderness is noted on palpation or with deep breathing. HEART EXAMINATION: Irregular rate and rhythm. S1, S2 heard. No murmurs, gallops or rub. ABDOMEN: Soft, nontender. Positive bowel sounds. EXTREMITIES: 2+ peripheral pulses, 3+ left lower extremity edema and no calf tenderness. NEUROLOGIC EXAMINATION: Patient is awake, alert and oriented x3. ASSESSMENT Symptoms of generalized bilateral lower extremity weakness, lightheadedness, bilateral lower extremity edema Acute kidney injury Chronic heart failure with preserved ejection fraction Permanent atrial fibrillation on Eliquis Moderate aortic stenosis Moderate mitral regurgitation History of CVA History of hypertension, hypotensive inpatient Urinary tract infection Lactic acidosis PLAN 2D echocardiogram ordered Obtain EKG and place on cardiac telemetry Due to patient's hypotension recommend continuing PO diuretics with Bumex instead of IV at this time. Will monitor need for IV diuretics Continue midodrine, amiodarone, statin, Eliquis, metoprolol tartrate Monitor I/Os, daily weights, renal function and electrolytes Further recommendations based on clinical course Nurse practitioner note has been reviewed by physician. Signing provider agrees with the documented findings, assessment, and plan of care. 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 Pelvic fracture. History of Any Multi-Drug Resistant Organisms: None Reported Additional Past Surgical History / Comment(s): colonoscopy x3, Past Anesthesia/Blood Transfusion Reactions: No Reported Reaction Past Psychological History: No Psychological Hx Reported Smoking Status: Never smoker Past Alcohol Use History: None Reported Past Drug Use History: None Reported - Past Family History Sister(s) Family Medical History: Diabetes Mellitus, Myocardial Infarction ([place]) Additional Family Medical History / Comment(s): sister from an [place] Mother Family Medical History: No Reported History Additional Family Medical History / Comment(s): multiple sclerosis Son(s) Family Medical History: Hypertension Father Additional Family Medical History / Comment(s): ETOH abuse Medications and Allergies Home Medications Medication Instructions Recorded Confirmed Type Multivitamins, Thera [Multivitamin 1 tab PO DAILY 08/22/16 03/29/22 History (formulary)] Apixaban [Eliquis] 5 mg PO BID 01/21/20 06/11/21 History Atorvastatin [Lipitor] 20 mg PO HS 01/21/20 06/11/21 History levETIRAcetam [Keppra] 500 mg PO BID 01/21/20 06/11/21 History Acetaminophen Tab [Tylenol] 650 mg PO Q4HR PRN tab 05/09/21 06/11/21 Rx Amiodarone [Cordarone] 200 mg PO BID tab 05/09/21 06/11/21 Rx Midodrine [ProAmatine] 5 mg PO AC-TID tab 05/09/21 06/11/21 Rx Allopurinol [Zyloprim] 100 mg PO DAILY 06/11/21 06/11/21 History Bumetanide [BUMEX] 3 mg PO DAILY 06/11/21 06/11/21 History Bumetanide [Bumex] 2 mg PO HS 06/11/21 06/11/21 History Cholecalciferol [Vitamin D3 (25 25 mcg PO DAILY 06/11/21 06/11/21 History Mcg = 1000 Iu)] Metoprolol Tartrate [Lopressor] 12.5 mg PO BID 06/11/21 06/11/21 History Nitrofurantoin Monohyd/M-Cryst 100 mg PO BID 06/11/21 06/11/21 History [Macrobid] Potassium Chloride ER [K-Dur 20] 20 meq PO BID 06/11/21 06/11/21 History Allergies Allergy/AdvReac Type Severity Reaction Status Date / Time No Known Allergies Allergy Verified 06/11/21 18:34 Physical Exam Vitals: Vital Signs Temp Pulse Pulse Resp BP BP Pulse Ox 06/12/21 07:59 97.6 F 68 16 96/61 94 L 06/12/21 01:58 97.9 F 17 94/60 92 L 06/11/21 21:40 17 06/11/21 21:07 97.5 F L 63 17 107/70 94 L 06/11/21 19:12 59 L 16 112/59 96 06/11/21 15:48 95.4 F L 65 18 92/63 95 Intake and Output 06/11/21 06/12/2106/12/22 22:59 06:59 14:59 Other: Voiding Method Urinal # Voids 2 Weight 92.079 kg Results 06/11/21 17:11 06/12/21 10:02 Cardiac Enzymes 06/11/21 Range/Units 18:02 AST 44 (17-59) U/L Coagulation 06/11/21 Range/Units 20:43 PT 15.0 H (9.0-12.0) sec APTT 30.1 H (22.0-30.0) sec CBC 06/11/21 Range/Units 17:11 WBC 5.8 (3.8-10.6) k/uL RBC 5.50 (4.30-5.90) m/uL Hgb 16.5 (13.0-17.5) gm/dL Hct 52.5 (39.0-53.0) % Plt Count 144 L D (150-450) k/uL Comprehensive Metabolic Panel 06/11/21 Range/Units 18:02 Sodium 136 L (137-145) mmol/L Potassium 5.4 H (3.5-5.1) mmol/L Chloride 98 (98-107) mmol/L Carbon Dioxide 27 (22-30) mmol/L BUN 40 H (9-20) mg/dL Creatinine 2.55 H (0.66-1.25) mg/dL Glucose 97 (74-99) mg/dL Calcium 9.1 (8.4-10.2) mg/dL AST 44 (17-59) U/L ALT 28 (4-49) U/L Alkaline Phosphatase 133 H (38-126) U/L Total Protein 6.8 (6.3-8.2) g/dL Albumin 4.0 (3.5-5.0) g/dL Current Medications Generic Name Dose Route Start Last Admin Trade Name Freq PRN Reason Stop Dose Admin Acetaminophen 650 mg 06/12/21 00:50 Acetaminophen Tab 325 Mg Tab PO Q4HR PRN Fever and/or Mild Pain Allopurinol 100 mg 06/12/21 09:00 06/12/21 08:23 Allopurinol 100 Mg Tab PO 100 mg DAILY EUNICE Administration Amiodarone HCl 200 mg 06/12/21 09:00 06/12/21 08:22 Amiodarone 200 Mg Tab PO 200 mg BID EUNICE Administration Apixaban 5 mg 06/12/21 09:00 06/12/21 08:23 Apixaban 5 Mg Tab PO 5 mg BID EUNICE Administration Protocol Atorvastatin Calcium 20 mg 06/12/21 21:00 Atorvastatin 20 Mg Tab PO HS EUNICE Bumetanide 2 mg 06/12/21 21:00 Bumetanide 1 Mg Tab PO HS EUNICE Bumetanide 3 mg 06/12/21 09:00 06/12/21 08:24 Bumetanide 1 Mg Tab PO 3 mg DAILY EUNICE Administration Cholecalciferol 25 mcg 06/12/21 09:00 06/12/21 08:23 Cholecalciferol 25 Mcg (1000 Iu) Tablet PO 25 mcg DAILY EUNICE Administration Ceftriaxone Sodium 1 gm/ 50 mls @ 100 mls/hr 06/12/21 09:00 Sodium Chloride IVPB Q24HR EUNICE Protocol Levetiracetam 500 mg 06/12/21 09:00 06/12/21 08:23 Levetiracetam 500 Mg Tab PO 500 mg BID EUNICE Administration Metoprolol Tartrate 12.5 mg 06/12/21 09:00 06/12/21 08:23 Metoprolol Tartrate 12.5 Mg Tab PO 12.5 mg BID EUNICE Administration Midodrine 5 mg 06/12/21 07:30 06/12/21 08:22 Midodrine 5 Mg Tab PO 5 mg AC-TID EUNICE Administration Multivitamins 1 each 06/12/21 09:00 06/12/21 08:22 Multivitamins, Thera 1 Each Tab PO 1 each DAILY EUNICE Administration Naloxone HCl 0.2 mg 06/11/21 19:48 Naloxone 0.4 Mg/Ml 1 Ml Vial IV Q2M PRN Opioid Reversal Pantoprazole Sodium 40 mg 06/12/21 09:00 Pantoprazole 40 Mg/10 Ml Vial IVP DAILY EUNICE Potassium Chloride 20 meq 06/12/21 09:00 06/12/21 08:23 Potassium Chloride Er 20 Meq Tab.Er PO Not Given BID EUNICE Intake and Output 06/11/21 06/12/21 06/12/21 22:59 06:59 14:59 Other: Voiding Method Urinal # Voids 2 Weight 92.079 kg 06/11/21 17:11 06/11/21 18:02
--- NOTE | 2021-06-12 14:34 | ECHOF ---
Referral Reason:CHF exacerbation MEASUREMENTS -------- HEIGHT: 175.3 cm WEIGHT: 92.1 kg BP: RVIDd: 2.7 cm (< 3.3) IVSd: 1.4 cm (0.6 - 1.1) LVIDd: 4.1 cm (3.9 - 5.3) LVPWd: 1.6 cm (0.6 - 1.1) IVSs: 1.9 cm LVIDs: 3.2 cm LVPWs: 1.9 cm LA Diam: 6.6 cm (2.7 - 3.8) Ao Diam: 3.6 cm (2.0 - 3.7) AV Cusp: 0.9 cm (1.5 - 2.6) LA Diam: 6.9 cm (2.7 - 3.8) MV EXCURSION: 19.523 mm (> 18.000) MV EF SLOPE: 83 mm/s (70 - 150) EPSS: 1.1 cm MV E [place]: 1.12 m/s MV DecT: 151 ms MV A [place]: 0.42 m/s MV E/A Ratio: 2.68 AV maxP.64 mmHg AV meanP.28 mmHg RAP: 15.00 mmHg RVSP: 48.63 mmHg FINDINGS -------- Undetermined rhythm. This was a technically good study. The left ventricular size is normal. There is moderate concentric left ventricular hypertrophy. O verall left ventricular systolic function is low-normal with, an EF between 50 - 55 %. The right ventricle is normal in size. The left atrium is markedly dilated. The right atrium is markedly enlarged. There is no evidence of aortic regurgitation. There is severe aortic stenosis present. Peak/mean gradient across the Aortic Valve is 61.64mmHg / 38.28mmHg. The mitral valve leaflets are mildly thickened. Mild mitral annular calcification present. Modera [id number] mitral regurgitation is present. Severe tricuspid regurgitation present. There is moderate pulmonary hypertension. The right ventr icular systolic pressure, as measured by Doppler, is 48.63mmHg. Trace/mild (physiologic) pulmonic regurgitation. There is no pericardial effusion. CONCLUSIONS -------- 1. The left ventricular size is normal. 2. There is moderate concentric left ventricular hypertrophy. 3. Overall left ventricular systolic function is low-normal with, an EF between 50 - 55 %. 4. The right ventricle is normal in size. 5. The left atrium is markedly dilated. 6. The right atrium is markedly enlarged. 7. There is no evidence of aortic regurgitation. 8. There is severe aortic stenosis present. 9. Peak/mean gradient across the Aortic Valve is 61.64mmHg / 38.28mmHg. 10. The mitral valve leaflets are mildly thickened. 11. Mild mitral annular calcification present. 12. [id number] mitral regurgitation is present. 13. Severe tricuspid regurgitation present. 14. There is moderate pulmonary hypertension. 15. The right ventricular systolic pressure, as measured by Doppler, is 48.63mmHg. 16. Trace/mild (physiologic) pulmonic regurgitation. 17. There is no pericardial effusion. GREEN HOUSE MANAGER: Jenny Lane RDCS
[2021-06-12] MEDS: ATORVASTATIN 20 MG TAB PO SCH (21:32)
[2021-06-13 06:32] LABS: African American GFR (CKD) 33 (>60 ml/min/1.73 sqM); Anion Gap 5 mmol/L; Blood Urea Nitrogen 38 mg/dL (9-20); Calcium 8.4 mg/dL (8.4-10.2); Carbon Dioxide 32 mmol/L (22-30); Chloride 98 mmol/L (98-107); Glucose 94 mg/dL (74-99); Non-African American GFR(CKD) 29 (>60 ml/min/1.73 sqM); Potassium 4.2 mmol/L (3.5-5.1); Sodium 135 mmol/L (137-145)
[2021-06-13] MEDS: PANTOPRAZOLE 40 MG/10 ML VIAL IVP SCH (07:59)
[2021-06-13] MEDS: POTASSIUM CHLORIDE ER 20 MEQ TAB.ER PO SCH ×2 (08:40→22:44)
[2021-06-13] MEDS: allopurinoL 100 MG TAB PO SCH (08:40)
[2021-06-13] MEDS: MULTIVITAMINS, THERA 1 EACH TAB PO SCH (08:40)
[2021-06-13] MEDS: CHOLECALCIFEROL 25 MCG (1000 IU) TABLET PO SCH (08:40)
[2021-06-13] MEDS: AMIODARONE 200 MG TAB PO SCH ×2 (08:40→22:44)
[2021-06-13] MEDS: APIXABAN 5 MG TAB PO SCH ×2 (08:40→22:44)
[2021-06-13] MEDS: METOPROLOL TARTRATE 12.5 MG TAB PO SCH ×2 (08:41→22:44)
[2021-06-13] MEDS: MIDODRINE 5 MG TAB PO SCH ×3 (08:41→16:50)
[2021-06-13] MEDS: BUMETANIDE 1 MG TAB PO SCH ×2 (08:42→22:44)
[2021-06-13] MEDS: levETIRAcetam 500 MG TAB PO SCH ×2 (08:42→22:45)
--- NOTE | 2021-06-13 09:36 | P.PN ---
Subjective This is a 81-year-old gentleman with history of congestive heart failure with preserved ejection fraction, aortic stenosis, mitral regurgitation, previous CVA, hypertension, hyperlipidemia and permanent atrial fibrillation on Eliquis. He follows with Dr. Sales. We have been asked to see in consultation for congestive heart failure. He presents to the emergency department with complaints of bilateral leg weakness, worsening lower extremity edema and some shortness of breath and lightheadedness. He states he mostly has been having this symptoms with ambulation. He denies loss of consciousness or near syncope. He states he was discharged from [facility] 1 week ago and has been home. Family stating that patient's symptoms have been worsening for 3-4 days. He has recently been diagnosed with UTI by his PCP and was placed on Macrobid. He denies chest pain, orthopnea or PND, palpitations, syncope or near syncope. DIAGNOSTICS Chest x-ray revealed moderate cardiomegaly, improvement in congestive heart failure and pleural fluid compared to old exam. Echocardiogram 05/01/21 revealed EF 5055%, mild aortic regurgitation, moderate aortic stenosis with peak/mean gradient of 38 mmHg/19 mmHg, mild to moderate mitral regurgitation, moderate tricuspid regurgitation Repeat echocardiogram this admission revealed EF 5055% severe aortic stenosis with a peak/mean gradient of 61 mmHg/38 mmHg, moderate to severe MR, severe tricuspid regurgitation, moderate pulmonary hypertension with RVSP of 48 mmHg 06/13/2021 Patient seen at bedside, no acute distress. Sitting up at bedside chair eating breakfast. He denies any worsening shortness of breath or lower extremity edema. He states that his breathing has actually improved. He denies any chest pain. Renal function improved, BUN 38, serum creatinine 2.1. Orthostatic vital signs were negative. Currently maintained on midodrine 5 mg 3 times a day, metoprolol tartrate 12.5 mg twice a day, Bumex 2 mg nightly and 30 mg daily, atorvastatin 20 mg daily, Eliquis 5 mg twice a day, amiodarone 200 mg twice a day PHYSICAL EXAMINATION Blood pressure 92/63, heart rate 66, afebrile, saturations 97% on 2 L nasal cannula CONSTITUTIONAL: No apparent distress. HEENT: Neck Supple. No JVD. CHEST EXAMINATION: Lungs are clear to auscultation. No chest wall tenderness is noted on palpation or with deep breathing. HEART EXAMINATION: Irregular rate and rhythm. S1, S2 heard. Systolic ejection murmur at right sternal border and apex. ABDOMEN: Soft, nontender. Positive bowel sounds. EXTREMITIES: 2+ peripheral pulses, 2+ left lower extremity edema and no calf tenderness. NEUROLOGIC EXAMINATION: Patient is awake, alert and oriented x3. ASSESSMENT Symptoms of generalized bilateral lower extremity weakness, lightheadedness, bilateral lower extremity edema Acute kidney injury Chronic heart failure with preserved ejection fraction Permanent atrial fibrillation on Eliquis Severe aortic stenosis Moderate mitral regurgitation Severe tricupid regurgitation History of CVA History of hypertension, hypotensive inpatient Urinary tract infection Lactic acidosis PLAN Echocardiogram reviewed which revealed worsening aortic stenosis, patient to follow up outpatient with Dr. Sales in regards to aortic valve treatment/management Due to patient's hypotension recommend continuing PO diuretics with Bumex instead of IV at this time. Will monitor need for IV diuretics Continue midodrine, amiodarone, statin, Eliquis, metoprolol tartrate Monitor I/Os, daily weights, renal function and electrolytes Increase activity as tolerated, PT/OT Further recommendations based on clinical course Nurse practitioner note has been reviewed by physician. Signing provider agrees with the documented findings, assessment, and plan of care. Objective - Vital Signs Vital signs: Vital Signs Temp 97.9 F 06/13/21 08:00 Pulse 66 06/13/21 08:00 Resp 14 06/13/21 08:00 BP 92/63 06/13/21 08:00 Pulse Ox 97 06/13/21 08:00 Intake & Output 06/12/21 06/13/21 06/13/21 18:59 06:59 18:59 Output Total 250 Balance -250 Weight 87 kg 93.8 kg Output: Urine 250 Other: Voiding Method Urinal Urinal # Voids 2 - Labs CBC & Chem 7: 06/11/21 17:11 06/13/21 05:23 Labs: Abnormal Lab Results - Last 24 Hours (Table) 06/12/21 06/13/21 Range/Units 10:02 05:23 Sodium 135 L 135 L (137-145) mmol/L Chloride 96 L (98-107) mmol/L Carbon Dioxide 32 H (22-30) mmol/L BUN 40 H 38 H (9-20) mg/dL Creatinine 2.45 H 2.10 H (0.66-1.25) mg/dL Glucose 152 H (74-99) mg/dL Microbiology - Last 24 Hours (Table) 06/11/21 17:11 Urine Culture - Preliminary Urine,Voided Gram Neg Bacilli
--- NOTE | 2021-06-13 11:59 | P.HPIM ---
History of Present Illness H&P Date: 06/12/21 Chief Complaint: Weakness, dizziness This is an 81-year-old gentleman with history of prior CVA 2, hypertension, hyperlipidemia, chronic atrial fibrillation-anticoagulated on Eliquis, CHF and multiple other medical issues presented to the ER . Complains of worsening bilateral lower extremity edema accompanied by weakness-reports "legs giving out", mild lightheadedness and mild shortness of breath 3 days . Recently placed on Macrobid per PCP for acute UTI. Denies chest pain, palpitations. Denies nausea vomiting or diarrhea. Denies headache or blurred vision. Afeb rile, normal WBC, platelets 144, INR 1.5, potassium 5.4 on admission currently down to 5, BUN 40, creatinine 2.45, alk phos 13. Lactic acid 2.5 on admission, decreased to 1.8. ProBNP 3740, UA reporting feeling casts, occasional bacteria, 107 WBCs, moderate leukocytes, negative nitrates.Chest x-ray reporting moderate cardiomegaly, improvement in CHF and pleural fluid compared to old exam. Echo r eporting low normal LV function, EF 50-55%, severe aortic stenosis, moderate to severe mitral regurgitation, severe tricuspid regurgitation, moderate pulmonary hypertension. Borderline hypotension. Diuretics and Rocephin initiated in the ER. Cardiology consulted. Review of Systems ROS Statement: Those systems with pertinent positive or pertinent negative responses have been documented in the HPI. ROS Other: All systems not noted in ROS Statement are negative. 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 Pelvic fracture. History of Any Multi-Drug Resistant Organisms: None Reported Additional Past Surgical History / Comment(s): colonoscopy x3, Past Anesthesia/Blood Transfusion Reactions: No Reported Reaction Past Psychological History: No Psychological Hx Reported Smoking Status: Never smoker Past Alcohol Use History: None Reported Past Drug Use History: None Reported - Past Family History Sister(s) Family Medical History: Diabetes Mellitus, Myocardial Infarction ([place]) Additional Family Medical History / Comment(s): sister from an [place] Mother Family Medical History: No Reported History Additional Family Medical History / Comment(s): multiple sclerosis Son(s) Family Medical History: Hypertension Father Additional Family Medical History / Comment(s): ETOH abuse Medications and Allergies Home Medications Medication Instructions Recorded Confirmed Type Multivitamins, Thera [Multivitamin 1 tab PO DAILY 11/05/15 06/11/21 History (formulary)] Apixaban [Eliquis] 5 mg PO BID 01/21/20 06/11/21 History Atorvastatin [Lipitor] 20 mg PO HS 01/21/20 06/11/21 History levETIRAcetam [Keppra] 500 mg PO BID 01/21/20 06/11/21 History Acetaminophen Tab [Tylenol] 650 mg PO Q4HR PRN tab 05/09/21 06/11/21 Rx Amiodarone [Cordarone] 200 mg PO BID tab 05/09/21 06/11/21 Rx Midodrine [ProAmatine] 5 mg PO AC-TID tab 05/09/21 06/11/21 Rx Allopurinol [Zyloprim] 100 mg PO DAILY 06/11/21 06/11/21 History Bumetanide [BUMEX] 3 mg PO DAILY 06/11/21 06/11/21 History Bumetanide [Bumex] 2 mg PO HS 06/11/21 06/11/21 History Cholecalciferol [Vitamin D3 (25 25 mcg PO DAILY 06/11/21 06/11/21 History Mcg = 1000 Iu)] Metoprolol Tartrate [Lopressor] 12.5 mg PO BID 06/11/21 06/11/21 History Nitrofurantoin Monohyd/M-Cryst 100 mg PO BID 06/11/21 06/11/21 History [Macrobid] Potassium Chloride ER [K-Dur 20] 20 meq PO BID 06/11/21 06/11/21 History Allergies Allergy/AdvReac Type Severity Reaction Status Date / Time No Known Allergies Allergy Verified 06/11/21 18:34 Physical Exam Vitals: Vital Signs Temp Pulse Pulse Resp BP BP BP 06/12/21 14:00 97.6 F 60 16 107/66 06/12/21 07:59 97.6 F 68 16 96/61 06/12/21 01:58 97.9 F 17 94/60 06/11/21 21:40 17 06/11/21 21:07 97.5 F L 63 17 107/70 06/11/21 19:12 59 L 16 112/59 BP BP Pulse Ox 06/12/21 14:00 97/63 93/60 95 06/12/21 07:59 94 L 06/12/21 01:58 92 L 06/11/21 21:40 06/11/21 21:07 94 L 06/11/21 19:12 96 Intake and Output 06/12/21 06/12/21 06/12/21 06:59 14:59 22:59 Output Total 250 Balance -250 Output: Urine 250 Other: Voiding Method Urinal # Voids 2 Weight 87 kg - Exam GENERAL: Sitting up in bed, weak, more alert, no acute distress HEENT: Head is atraumatic, normocephalic. Pupils are equal, round, and reactive to light. Sclerae anicteric. Conjunctivae are clear. Mucus membranes of the mouth are moist. NECK: supple, no JVD. RESPIRATORY: Diminished. CARDIOVASCULAR: Irregular rate and rhythm. Regular S1 and S2 noted. Positive systolic murmur auscultated. GASTROINTESTINAL: Soft, No distention noted .Normal active bowel sounds auscultated. No tenderness. No guarding, no rigidity. EXTREMITIES: Bilateral Lucio wraps clean dry and intact, positive edema NEUROLOGIC: Cranial nerves II-XII intact. PSYCHIATRIC: Awake, alert, and oriented X 2-3. Appropriate affect. Intact judgement and insight. Results CBC & Chem 7: 06/11/21 17:11 06/13/21 05:23 Labs: Abnormal Lab Results - Last 24 Hours (Table) 06/11/21 06/11/21 06/11/21 Range/Units 17:11 17:11 17:11 RDW 16.8 H (11.5-15.5) % Plt Count 144 L D (150-450) k/uL Lymphocytes # (Manual) 0.29 L (1.0-4.8) k/uL PT (9.0-12.0) sec INR (<1.2) APTT (22.0-30.0) sec Sodium (137-145) mmol/L Potassium (3.5-5.1) mmol/L Chloride (98-107) mmol/L BUN (9-20) mg/dL Creatinine (0.66-1.25) mg/dL Glucose (74-99) mg/dL Plasma Lactic Acid Yakov 2.5 H* (0.7-2.0) mmol/L Total Bilirubin (0.2-1.3) mg/dL Alkaline Phosphatase (38-126) U/L Urine Protein 1+ H (Negative) Urine Blood Large H (Negative) Ur Leukocyte Esterase Moderate H (Negative) Urine RBC >182 H (0-5) /hpf Urine WBC 107 H (0-5) /hpf Urine Bacteria Occasional H (None) /hpf Hyaline Casts 84 H (0-2) /lpf Urine Mucus Rare H (None) /hpf 06/11/21 06/11/21 06/12/21 Range/Units 18:02 20:43 10:02 RDW (11.5-15.5) % Plt Count (150-450) k/uL Lymphocytes # (Manual) (1.0-4.8) k/uL PT 15.0 H (9.0-12.0) sec INR 1.5 H (<1.2) APTT 30.1 H (22.0-30.0) sec Sodium 136 L 135 L (137-145) mmol/L Potassium 5.4 H (3.5-5.1) mmol/L Chloride 96 L (98-107) mmol/L BUN 40 H 40 H (9-20) mg/dL Creatinine 2.55 H 2.45 H (0.66-1.25) mg/dL Glucose 152 H (74-99) mg/dL Plasma Lactic Acid Yakov (0.7-2.0) mmol/L Total Bilirubin 2.3 H (0.2-1.3) mg/dL Alkaline Phosphatase 133 H (38-126) U/L Urine Protein (Negative) Urine Blood (Negative) Ur Leukocyte Esterase (Negative) Urine RBC (0-5) /hpf Urine WBC (0-5) /hpf Urine Bacteria (None) /hpf Hyaline Casts (0-2) /lpf Urine Mucus (None) /hpf Microbiology - Last 24 Hours (Table) 06/11/21 17:11 Urine Culture - Preliminary Urine,Voided Thrombosis Risk Factor Assmnt - Choose All That Apply Each Factor Represents 1 point: Obesity (BMI >25), Swollen legs (current) Each Risk Factor Represents 3 Points: Age 75 years or older Thrombosis Risk Factor Assessment Total Risk Factor Score: 5 Thrombosis Risk Factor Assessment Level: High Risk Assessment and Plan Assessment: Mild acute CHF with Increased bilateral lower extremity weakness, edema and lightheadedness, chest x-ray reports improvement in comparison. Recent admission with cardiogenic shock secondary to Acute diastolic CHF exacerbation. Acute renal failure secondary to ATN related to the above, cardiorenal syndrome. Hyperkalemia secondary to the above, resolved Moderate to severe aortic stenosis; repeat echo reporting worsening Acute UTI, cultures pending Chronic A. fib on anticoagulation History of CVA 2 Epilepsy , history of, on Keppra with history of Chronic lower extremity venous stasis changes Hypertension, history of Hyperlipidemia plan: Continue on current medication regime ,monitoring and symptomatic treatment. Antibiotics ordered for UTI , culture pending.Hypotension -diuresing with oral agents as per cardiology. Echo reported worsening aortic stenosis with further follow-up regarding treatment options. The impression and plan of care has been dictated as directed. : I performed a history and examination of this patient, discussed the same with the dictator. I agree with the dictator's note ,documented as a scribe. Any additional findings or plans will be noted.
--- NOTE | 2021-06-13 12:16 | P.PN ---
Subjective Progress Note Date: 06/13/21 This is an 81-year-old gentleman with history of prior CVA 2, hypertension, hyperlipidemia, chronic atrial fibrillation-anticoagulated on Eliquis, CHF and multiple other medical issues presented to the ER . Complains of worsening bilateral lower extremity edema accompanied by weakness-reports "legs giving out", mild lightheadedness and mild shortness of breath 3 days . Recently placed on Macrobid per PCP for acute UTI. Denies chest pain, palpitations. Denies nausea vomiting or diarrhea. Denies headache or blurred vision. Afebrile, normal WBC, platelets 144, INR 1.5, potassium 5.4 on admission currently down to 5, BUN 40, creatinine 2.45, alk phos 13. Lactic acid 2.5 on admission, decreased to 1.8. ProBNP 3740, UA reporting feeling casts, occasional bacteria, 107 WBCs, moderate leukocytes, negative nitrates.Chest x- ray reporting moderate cardiomegaly, improvement in CHF and pleural fluid compared to old exam. Echo reporting low normal LV function, EF 50-55%, severe aortic stenosis, moderate to severe mitral regurgitation, severe tricuspid regurgitation, moderate pulmonary hypertension. Borderline hypotension. Diuretics and Rocephin initiated in the ER. Cardiology consulted. 06/13/2021 reports ambulating to bathroom, tolerated exertion well. As previously mentioned Echo reported worsening aortic stenosis with with further treatment options as per cardiology. Borderline hypotensive, diuresing well on oral Bumex. Renal function improving. Denies chest pain, palpitations or increasing shortness of breath. Maintaining O2 sats in the mid to high 90s on 2 L nasal cannula. Negative for orthostatic hypotension.Urine culture grew gram- negative bacilli, continues on ceftriaxone. Afebrile. Objective - Vital Signs Vital signs: Vital Signs Temp 97.9 F 06/13/21 08:00 Pulse 66 06/13/21 08:00 Resp 14 06/13/21 08:00 BP 92/63 06/13/21 08:00 Pulse Ox 97 06/13/21 08:00 Intake & Output 06/12/21 06/13/21 06/13/21 18:59 06:59 18:59 Output Total 250 Balance -250 Weight 87 kg 93.8 kg Output: Urine 250 Other: Voiding Method Urinal Urinal Urinal # Voids 2 - Exam - Exam GENERAL: Sitting up in bed, weak, more alert, no acute distress HEENT: Head is atraumatic, normocephalic. Pupils are equal, round, and reactive to light. Sclerae anicteric. Conjunctivae are clear. MMM. NECK: supple, no JVD. RESPIRATORY: Diminished. CARDIOVASCULAR: Irregular rate and rhythm. Regular S1 and S2 noted. Positive systolic murmur auscultated. GASTROINTESTINAL: Soft, No distention noted .Normal active bowel sounds auscult ated. No tenderness. No guarding, no rigidity. EXTREMITIES: Chronic lower extremity venous stasis changes,positive edema NEUROLOGIC: Cranial nerves II-XII intact. PSYCHIATRIC: Awake, alert, and oriented X 3. Appropriate affect. Intact judgement and insight. - Labs CBC & Chem 7: 06/11/21 17:11 06/13/21 05:23 Labs: Abnormal Lab Results - Last 24 Hours (Table) 06/13/21 Range/Units 05:23 Sodium 135 L (137-145) mmol/L Carbon Dioxide 32 H (22-30) mmol/L BUN 38 H (9-20) mg/dL Creatinine 2.10 H (0.66-1.25) mg/dL Microbiology - Last 24 Hours (Table) 06/11/21 17:11 Urine Culture - Preliminary Urine,Voided Gram Neg Bacilli Assessment and Plan Assessment: Mild acute CHF with Increased bilateral lower extremity weakness, edema and lightheadedness, tho chest x-ray reports improvement in comparison. Recent admission with cardiogenic shock secondary to Acute diastolic CHF exacerbation. Acute renal failure secondary to ATN related to the above, cardiorenal syndrome. Hyperkalemia secondary to the above, resolved Moderate to severe aortic stenosis; repeat echo reporting worsening Acute UTI, gram-negative bacilli Chronic A. fib on anticoagulation History of CVA 2 Epilepsy , history of, on Keppra with history of Chronic lower extremity venous stasis changes Hypertension, history of Hyperlipidemia plan: Continue on current medication regime ,monitoring and symptomatic treatment. Maintain ceftriaxone , cultures finalizing. Diuretics as per cardiology. Treatment options regarding worsening aortic stenosis as per cardiology. The impression and plan of care has been dictated as directed. : I performed a history and examination of this patient, discussed the same with the dictator. I agree with the dictator's note ,documented as a scribe. Any additional findings or plans will be noted.
[2021-06-13] MEDS: ATORVASTATIN 20 MG TAB PO SCH (22:44)
[2021-06-14 03:17] VITALS: RESP 18
[2021-06-14] MEDS: PANTOPRAZOLE 40 MG/10 ML VIAL IVP SCH (07:49)
[2021-06-14] MEDS: allopurinoL 100 MG TAB PO SCH (07:49)
[2021-06-14] MEDS: AMIODARONE 200 MG TAB PO SCH (07:49)
[2021-06-14] MEDS: MULTIVITAMINS, THERA 1 EACH TAB PO SCH (07:49)
[2021-06-14] MEDS: METOPROLOL TARTRATE 12.5 MG TAB PO SCH (07:49)
[2021-06-14] MEDS: CHOLECALCIFEROL 25 MCG (1000 IU) TABLET PO SCH (07:49)
[2021-06-14] MEDS: APIXABAN 5 MG TAB PO SCH (07:49)
[2021-06-14] MEDS: MIDODRINE 5 MG TAB PO SCH ×2 (07:49→11:38)
[2021-06-14] MEDS: POTASSIUM CHLORIDE ER 20 MEQ TAB.ER PO SCH (07:50)
[2021-06-14] MEDS: BUMETANIDE 1 MG TAB PO SCH (07:50)
[2021-06-14] MEDS: levETIRAcetam 500 MG TAB PO SCH (07:50)
[2021-06-14 09:19] LABS: Basophils # (A) 0.04 X 10*3/uL (0.00-0.10); Basophils % (A) 0.7 %; Eosinophils # (A) 0.07 X 10*3/uL (0.04-0.35); Eosinophils % (A) 1.2 %; HCT 45.5 % (39.6-50.0); HGB 14.1 g/dL (13.0-17.0); Immature Grans, Automated 0.2 %; Lymphocytes # (A) 0.95 X 10*3/uL (0.90-5.00); Lymphocytes % (A) 15.7 %; MCH 28.8 pg (27.0-32.0); Mean Platelet Volume 12.9 fL (9.5-12.2); Monocytes # (A) 1.06 X 10*3/uL (0.20-1.00); Monocytes % (A) 17.5 %; NRBC Per 100 WBC 0 /100 WBCS (0.0-0.0); Neutrophils # (A) 3.93 X 10*3/uL (1.80-7.70); Neutrophils % (A) 64.7 %; Platelet Count 117 X 10*3/uL (140-440); RBC 4.89 X 10*6/uL (4.40-5.60); RDW 19.2 % (11.5-14.5); WBC 6.06 X 10*3/uL (4.50-10.00)
[2021-06-14 09:47] LABS: African American GFR (CKD) 28.3 (60.0-200.0); Anion Gap 14.1 mmol/L (10.00-18.00); BUN/Creat Ratio 13.67 Ratio (12.00-20.00); Blood Urea Nitrogen 32.8 mg/dL (9.0-27.0); Calcium 8.8 mg/dL (8.7-10.3); Carbon Dioxide 24.9 mmol/L (20.0-27.5); Non-African American GFR(CKD) 24.4 (60.0-200.0); Potassium 4.4 mmol/L (3.5-5.5)
--- NOTE | 2021-06-14 11:37 | P.PN ---
Subjective This is a 81-year-old gentleman with history of congestive heart failure with preserved ejection fraction, aortic stenosis, mitral regurgitation, previous CVA, hypertension, hyperlipidemia and permanent atrial fibrillation on Eliquis. He follows with Dr. Sales. We have been asked to see in consultation for congestive heart failure. He presents to the emergency department with complaints of bilateral leg weakness, worsening lower extremity edema and some shortness of breath and lightheadedness. He states he mostly has been having this symptoms with ambulation. He denies loss of consciousness or near syncope. He states he was discharged from [facility] 1 week ago and has been home. Family stating that patient's symptoms have been worsening for 3-4 days. He has recently been diagnosed with UTI by his PCP and was placed on Macrobid. He denies chest pain, orthopnea or PND, palpitations, syncope or near syncope. DIAGNOSTICS Chest x-ray revealed moderate cardiomegaly, improvement in congestive heart failure and pleural fluid compared to old exam. Echocardiogram 05/01/21 revealed EF 5055%, mild aortic regurgitation, moderate aortic stenosis with peak/mean gradient of 38 mmHg/19 mmHg, mild to moderate mitral regurgitation, moderate tricuspid regurgitation Repeat echocardiogram this admission revealed EF 5055% severe aortic stenosis with a peak/mean gradient of 61 mmHg/38 mmHg, moderate to severe MR, severe tricuspid regurgitation, moderate pulmonary hypertension with RVSP of 48 mmHg 06/14/2021 Patient seen at bedside, no acute distress. Sitting up at bedside chair eating breakfast. He feels well. He denies any worsening shortness of breath or lower extremity edema. He states that his breathing has actually improved. He denies any chest pain. Orthostatic vital signs were negative. Currently maintained on midodrine 5 mg 3 times a day, metoprolol tartrate 12.5 mg twice a day, Bumex 2 mg nightly and 30 mg daily, atorvastatin 20 mg daily, Eliquis 5 mg twice a day, amiodarone 200 mg twice a day PHYSICAL EXAMINATION Blood pressure 106/76, heart rate 74, afebrile, saturations 94% on 3 L nasal ca nnula CONSTITUTIONAL: No apparent distress. HEENT: Neck Supple. No JVD. CHEST EXAMINATION: Lungs are clear to auscultation. No chest wall tenderness is noted on palpation or with deep breathing. HEART EXAMINATION: Irregular rate and rhythm. S1, S2 heard. Systolic ejection murmur at right sternal border and apex. ABDOMEN: Soft, nontender. Positive bowel sounds. EXTREMITIES: 2+ peripheral pulses, 2+ left lower extremity edema and no calf tenderness. NEUROLOGIC EXAMINATION: Patient is awake, alert and oriented x3. ASSESSMENT Symptoms of generalized bilateral lower extremity weakness, lightheadedness, bilateral lower extremity edema Acute kidney injury Chronic heart failure with preserved ejection fraction Permanent atrial fibrillation on Eliquis Severe aortic stenosis Moderate mitral regurgitation Severe tricupid regurgitation History of CVA History of hypertension, hypotensive inpatient Urinary tract infection Lactic acidosis PLAN Echocardiogram reviewed which revealed worsening aortic stenosis, patient to follow up outpatient with Dr. Sales in regards to aortic valve tr eatment/management. Continue PO Bumex Continue midodrine, amiodarone, statin, Eliquis, metoprolol tartrate Increase activity as tolerated, PT/OT From a cardiology perspective, patient is stable on current medication regimen. We will follow the patient as needed. Please reach out with any further qu estions or concerns. Patient with follow up appointment with Dr. Sales on 06/24/21 Nurse practitioner note has been reviewed by physician. Signing provider agrees with the documented findings, assessment, and plan of care. Objective - Vital Signs Vital signs: Vital Signs Temp 97.8 F 06/14/21 07:42 Pulse 74 06/14/21 07:42 Resp 18 06/14/21 07:42 BP 106/76 06/14/21 07:42 Pulse Ox 94 L 06/14/21 07:42 Intake & Output 06/13/21 06/14/21 06/14/21 18:59 06:59 18:59 Other: Voiding Method Urinal Urinal # Voids 6 - Labs CBC & Chem 7: 06/14/21 04:35 06/14/21 04:35 Labs: Microbiology - Last 24 Hours (Table) 06/11/21 17:11 Urine Culture - Final Urine,Voided Escherichia coli
[2021-06-14 12:47] VITALS: BP 147/62; PULSE 77; TEMP 97.4
== END 2021-06-14 16:26 | disposition home health service (06) | DRG 291 ==
LOC: EC 15:31 → 4SSUR 18:50
PROVIDERS: ADMIT Family Medicine; ATTEND Family Medicine
DX: I13.0 Hypertensive heart and chronic kidney disease with heart failure and stage 1 through stage 4 chronic kidney disease, or unspecified chronic kidney disease (principal); N17.0 Acute kidney failure with tubular necrosis; E87.2 Acidosis; I48.21 Permanent atrial fibrillation; I50.32 Chronic diastolic (congestive) heart failure; N39.0 Urinary tract infection, site not specified; B96.89 Other specified bacterial agents as the cause of diseases classified elsewhere; I37.1 Nonrheumatic pulmonary valve insufficiency; I08.3 Combined rheumatic disorders of mitral, aortic and tricuspid valves; E78.5 Hyperlipidemia, unspecified; E87.5 Hyperkalemia; G40.909 Epilepsy, unspecified, not intractable, without status epilepticus; I27.20 Pulmonary hypertension, unspecified; I95.9 Hypotension, unspecified; I87.8 Other specified disorders of veins; N18.9 Chronic kidney disease, unspecified; Z79.01 Long term (current) use of anticoagulants; Z79.899 Other long term (current) drug therapy; Z82.0 Family history of epilepsy and other diseases of the nervous system; Z82.49 Family history of ischemic heart disease and other diseases of the circulatory system; Z83.3 Family history of diabetes mellitus; Z85.46 Personal history of malignant neoplasm of prostate; Z86.73 Personal history of transient ischemic attack (TIA), and cerebral infarction without residual deficits; Z87.81 Personal history of (healed) traumatic fracture
CPT/HCPCS: 36415; 71046; 80048; 80053; 81001; 83605; 83880; 85025; 85610; 85730; 87040; 87077; 87086; 87186; 93306; 96365; 96375; 99285

== ENCOUNTER 2021-07-23 14:06 | Inpatient (IN) | payer MEDICAID, MEDICARE ==
[2021-07-23] MEDS ORDERED: LORazepam 2 MG/ML INJ IV PRN (14:09)
[2021-07-23] MEDS ORDERED: ACETAMINOPHEN SUPPOSITORY 650 MG SUPP RECTAL PRN (14:09)
[2021-07-23] MEDS ORDERED: MORPHINE SULFATE 2 MG/ML SYRINGE IV PRN (14:09)
[2021-07-23] MEDS ORDERED: ATROPINE OPHTH SOLN 1% 5ML BTL SUBLINGUAL PRN (14:09)
[2021-07-23] MEDS ORDERED: SCOPOLAMINE 1 MG/72 HR PATCH TRANSDERM SCH (15:00)
[2021-07-23] MEDS: MORPHINE SULFATE (100 MG/2 ML) 100 MG in SODIUM CHLORIDE 0.9% 100 ML IV SCH (16:25)
--- NOTE | 2021-07-24 13:21 | P.HPIM ---
History of Present Illness H&P Date: 07/24/21 Chief Complaint: Hospice This is an 81-year-[facility] reporting increasing shortness of breath, minimal confusion over the last few days per in addition to nonhealing chronic ulcerations of left heel and left anterior lower extremity and multiple other medical issues, recently admitted with the same. Chest x-ray reporting chronic congestive heart failure with increased congestion compared to last exam, moderate right-sided pleural effusion. EKG reporting atrial fibrillation, right bundle branch block. Afebrile, normal WBC. INR 1.4, Troponin 0.039 ( elevated on prior admission 0.036), BNP 1840, creatinine 1.83. Influenza type a/type B/RSV/Sars-Cov-2 (PCR ) not detected. Lasix IV push initiated in the ER. Currently maintaining O2 sats in the 90s on 5 L nasal cannula. 07/10/2021 Diuresing well on Lasix IV push , 24-hour I&O reflecting a negative fluid balance, maintaining O2 sats in the 90s on 4 L nasal cannula. Less shortness of breath Chest ultrasound pending. Denies chest pain, palpitations. Evaluated by wound care team and cardiology with recommendations noted and appreciated. Creatinine decreased to 1.58. 07/11/2021 bicarb increased to 42,chest ultrasound completed reporting moderate size right pleural effusion, 13 cm pocket, marked for thoracentesis . Nonproductive cough.Respiratory functioning worsening, O2 requirements increased up to 4 L nasal cannula maintaining O2 sats in the low 90s .Eliquis on hold for thoracentesis. Continues on Lasix IV, edema decreasing, 24-hour I&O does not appear accurate. BUN 33, creatinine 1.5. Afebrile. 07/12/2021 NPO for thoracentesis. Maintaining O2 sats in the high 90s on 6 L high flow nasal cannula. Afebrile. Preliminary blood cultures reporting no growth after 48 hours. Denies chest pain, palpitations. Labs pending. 07/15/21 right-sided thoracentesis performed on 07/12 with 950 MLS turbid tinged colored fluid removed without difficulty, pleural cultures pending .diuresing on Lasix IV push, 24-hour I&O reflecting a positive fluid balance, daily weight pending. Bicarb 39 .O2 sats in the 90s on 2 L high flow nasal cannula. Chest x-ray reporting CHF with associated effusions, blunting of the costophrenic angles persists. Afebrile, normal WBC. BUN 34, creatinine trending down to 1.28. 07/16/21 Continues on diuretics, creatinine increased to 1.39, maintaining O2 sats in the 90s on 10 L high flow nasal cannula. Daily weight requested/pending. 24-hour I&O reflecting a positive fluid balance Afebrile. Pleural fluid cytology and cultures pending. Guarded prognosis and CODE STATUS discussed with patient-requested Dr. Mary to speak with his as well. Asking for a weekend pass to go home. 07/17/2021 converted to Lasix drip initiated yesterday with the addition of Diamox .maintaining O2 sats in the low 90s, and 11 L high flow nasal cannula. Daily weights with weight inaccurate; yesterday weighed in at 101.5 kg this morning down to 67 kg. 24-hour I&O reflecting a minimal negative fluid balance. Afebrile. Renal function worsening, creatinine up to 1.71. Pleural fluids pending with cytology reporting negative for malignancy. Cardiology discussing potential TAVR. 07/18/2021 Lasix drip increased yesterday afternoon secondary to concerns of decreased urine output. Continues on Diamox, metolazone, Midodrin. Wells catheter irrigated, with following 2500ml urine output. 24-hour I&O reflecting a negative fluid balance, edema improving. Renal function/labs pending. Maintaining O2 sats in the mid 90s on 10 L high flow nasal cannula. Sleepy this morning has not yet started on breakfast. 07/19/2021 continues on Lasix drip, Diamox, 15 L high flow nasal cannula, pitting, weeping edema of lower extremities. Oxygen requirements have increased, Bicarb increased up to 50. Potassium 2.9, creatinine worsening, 1.91, ABGs pending. CODE STATUS has been changed to no code, no CPR, no intubation as per family's wishes/ice discussion with PCP, Dr. Mary. The family is having a meeting today discussing hospice. 07/22/2021 Continues diuresing on Lasix, Diamox , 24-hour I&O reflecting a negative fluid balance, no weight documented ,continues to require 15 L high flow nasal cannula. Maintained on lactulose, ammonia level pending. Bicarb greater than 40, BUN 42, creatinine 1.8. Extremely lethargic, minimally conversing. Family is discussing hospice. 07/23/2021 maintained on IV Lasix, IV Diamox ,condition continues to decline, respiratory rate up to 26 on 15 L high flow nasal cannula maintaining O2 sats in the low 90s. Bicarb 49 , BUN 41, creatinine 1.8. Significant lethargy with minimal communication, occasionally moans to answer questions, otherwise not following commands. Bilateral lower extremities improved. Hospice meeting scheduled for this afternoon. 07/23/2009 has met with the hospice team and decided to proceed with [facility] hospice. 07/24/21 patient continues on [facility] hospice/comfort care. Maintained on morphine drip, 2 L nasal cannula, appears comfortable. Unresponsive. Mottling of lower extremities noted. Review of Systems Deferred Past Medical History Past Medical History: Atrial Fibrillation, Heart Failure, CVA/TIA, Hyperlipidemia, Hypertension, Seizure Disorder Additional Past Medical History / Comment(s): prostate cancer 2008, radiation treatment, last stroke was October 2014 and 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 Pelvic fracture. History of Any Multi-Drug Resistant Organisms: None Reported Additional Past Surgical History / Comment(s): colonoscopy x3, bilateral cataracts Past Anesthesia/Blood Transfusion Reactions: No Reported Reaction Past Psychological History: No Psychological Hx Reported Smoking Status: Former smoker Past Alcohol Use History: None Reported Past Drug Use History: None Reported - Past Family History Sister(s) Family Medical History: Diabetes Mellitus, Myocardial Infarction (CT) Additional Family Medical History / Comment(s): sister from an CT Mother Family Medical History: No Reported History Additional Family Medical History / Comment(s): multiple sclerosis Son(s) Family Medical History: Hypertension Father Additional Family Medical History / Comment(s): ETOH abuse Medications and Allergies Home Medications Medication Instructions Recorded Confirmed Type Multivitamins, Thera [Multivitamin 1 tab PO DAILY@1700 11/04/16 07/23/21 History (formulary)] Apixaban [Eliquis] 5 mg PO BID@0800,1700 01/21/20 07/23/21 History Atorvastatin [Lipitor] 20 mg PO HS@2100 01/21/20 07/23/21 History levETIRAcetam [Keppra] 500 mg PO BID@0800,2100 01/21/20 07/23/21 History Acetaminophen Tab [Tylenol] 650 mg PO Q4HR PRN tab 05/09/21 07/23/21 Rx Allopurinol [Zyloprim] 100 mg PO DAILY@0800 06/11/21 07/23/21 History Cholecalciferol [Vitamin D3 (25 25 mcg PO DAILY@169906/11/21 07/23/21 History Mcg = 1000 Iu)] Potassium Chloride ER [K-Dur 20] 20 meq PO BID@0800,1700 06/11/21 07/23/21 History Amiodarone [Cordarone] 200 mg PO BID@0800,169907/08/21 07/23/21 History Doxycycline Hyclate 100 mg PO BID@0800,1700 07/08/21 07/23/21 History Famotidine [Pepcid] 10 mg PO BID@0800,2100 07/08/21 07/23/21 History Ipratropium-Albuterol Nebulize 3 ml INHALATION RT-Q6H PRN 07/08/21 07/23/21 History [Duoneb 0.5 mg-3 mg/3 ml Soln] Liquacel 30 ml PO BID@0800,169907/08/21 07/23/21 History Magnesium Hydroxide [Milk of 2,400 mg PO Q48H PRN 07/08/21 07/23/21 History Magnesia] Metoprolol Tartrate [Lopressor] 12.5 mg PO BID@0800,0 07/08/21 07/23/21 History Midodrine [ProAmatine] 5 mg PO TID@0800,1200,0 07/08/21 07/23/21 History Na Phos,M-B/Na Phos,Di-Ba [Fleet 133 ml RECTAL DAILY PRN 07/08/21 07/23/21 History Adult] Torsemide 40mg 20 mg PO DAILY@1700 07/08/21 07/23/21 History Torsemide 40mg 40 mg PO DAILY@0800 07/08/21 07/23/21 History bisacodyL [Dulcolax] 10 mg RECTAL DAILY PRN 07/08/21 07/23/21 History Allergies Allergy/AdvReac Type Severity Reaction Status Date / Time No Known Allergies Allergy Verified 07/08/21 16:42 Physical Exam Vitals: Vital Signs Resp 07/24/21 03:58 16 Intake and Output 07/23/21 07/24/21 07/24/21 22:59 06:59 14:59 Intake Total 0 12 Output Total 325 Balance 0 -313 Intake: Intake, IV Titration 12 Amount Morphine Sulfate (100 mg/ 12 2 ml) 100 mg In Sodium Chloride 0.9% 100 ml @ 1 MG/HR 1.02 mls/hr IV . Q24H [facility] Rx#:[id number] Oral 0 0 Output: Urine 325 Uretheral (Wells) 325 - Exam GENERAL: Unresponsive, on morphine drip, appears comfortable. RESPIRATORY: Unlabored, scattered rhonchi with bibasilar crackles CARDIOVASCULAR: Irregular rate and rhythm. Positive systolic murmur. GASTROINTESTINAL: No distention noted. Abdomen soft and round. EXTREMITIES: Mottling of the lower extremities noted Assessment and Plan Assessment: [facility] hospice No code, no CPR, no intubation Acute on chronic diastolic CHF exacerbation with moderate right pleural effusion, status post thoracentesis. Echo 06/12/2021 reported EF 50-55% with multi-valvular disease including severe aortic stenosis. Acute hypoxic, hypercapnic respiratory failure secondary to the above. Recent admission with cardiogenic shock secondary to Acute diastolic CHF exacerbation. Pressure ulceration stage II left calcaneus present on admission in a patient with chronic left leg cellulitis in a patient with Chronic lower extremity venous stasis changes and arterial insufficiency Generalized weakness secondary to above Acute renal failure secondary to ATN related to the above, cardiorenal syndrome. Chronic kidney disease III Severe aortic stenosis Moderate to severe mitral regurgitation Severe tricuspid regurgitation Moderate pulmonary hypertension Metabolic alkalosis secondary to diuresing Chronic atrial fibrillation on Eliquis History of CVA X 2 Hypertension Hyperlipidemia Epilepsy , history of History of BPH. Plan: Continue on current medication regime ,monitoring and sent to treatment. Maintain comfort care. Currently no family at bedside. The impression and plan of care has been dictated as directed. : I performed a history and examination of this patient, discussed the same with the dictator. I agree with the dictator's note ,documented as a scribe. Any additional findings or plans will be noted.
[2021-07-24] MEDS: MORPHINE SULFATE (100 MG/2 ML) 100 MG in SODIUM CHLORIDE 0.9% 100 ML IV SCH (20:15)
[2021-07-24 23:47] VITALS: RESP 22
== END 2021-07-25 06:03 | disposition expired | DRG 951 ==
LOC: 3SCARD 15:43
PROVIDERS: ADMIT Family Medicine; ATTEND Family Medicine
DX: Z51.5 Encounter for palliative care (principal); J96.92 Respiratory failure, unspecified with hypercapnia; N17.0 Acute kidney failure with tubular necrosis; I50.33 Acute on chronic diastolic (congestive) heart failure; E87.3 Alkalosis; I13.0 Hypertensive heart and chronic kidney disease with heart failure and stage 1 through stage 4 chronic kidney disease, or unspecified chronic kidney disease; I48.20 Chronic atrial fibrillation, unspecified; L03.116 Cellulitis of left lower limb; E78.5 Hyperlipidemia, unspecified; G40.909 Epilepsy, unspecified, not intractable, without status epilepticus; Z66 Do not resuscitate; I08.3 Combined rheumatic disorders of mitral, aortic and tricuspid valves; I27.20 Pulmonary hypertension, unspecified; I45.10 Unspecified right bundle-branch block; I77.1 Stricture of artery; I87.8 Other specified disorders of veins; L89.92 Pressure ulcer of unspecified site, stage 2; N18.30 Chronic kidney disease, stage 3 unspecified; N40.0 Benign prostatic hyperplasia without lower urinary tract symptoms; R09.02 Hypoxemia; Z79.01 Long term (current) use of anticoagulants; Z79.899 Other long term (current) drug therapy; Z82.0 Family history of epilepsy and other diseases of the nervous system; Z82.49 Family history of ischemic heart disease and other diseases of the circulatory system; Z83.3 Family history of diabetes mellitus; Z85.46 Personal history of malignant neoplasm of prostate; Z86.73 Personal history of transient ischemic attack (TIA), and cerebral infarction without residual deficits; Z87.891 Personal history of nicotine dependence; Z98.42 Cataract extraction status, left eye; Z98.41 Cataract extraction status, right eye